=== PATIENT | male | born 1980 | race Caucasian/White ===

== ENCOUNTER 2016-08-04 16:22 | Inpatient (IN) | payer OTHER ==
[2016-08-04 16:53] VITALS: BMI 30.8
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
[2016-08-04] MEDS ORDERED: MAGNESIUM CITRATE 300 ML BOTTLE PO PRN (18:28)
[2016-08-04] MEDS ORDERED: MENTHOL/PHENOL 1 EACH UD MM PRN (18:28)
[2016-08-04] MEDS ORDERED: LOPERAMIDE HCL 2 MG CAPSULE PO PRN (18:28)
[2016-08-04] MEDS ORDERED: ACETAMINOPHEN 325 MG TABLET (FP) PO PRN (18:28)
[2016-08-04] MEDS ORDERED: chlordiazePOXIDE HCL 25 MG CAPSULE PO ONE (18:28)
[2016-08-04] MEDS ORDERED: hydrOXYzine PAMOATE 50 MG CAPSULE (FP) PO PRN (18:28)
[2016-08-04] MEDS ORDERED: IBUPROFEN 400 MG TABLET (FP) PO PRN (18:28)
[2016-08-04] MEDS ORDERED: MAG HYDROX/AL HYDROX/SIMETH 30 ML UNIT-DOSE CUP PO PRN (18:28)
[2016-08-04] MEDS ORDERED: guaiFENesin/D-METHORPHAN HB 10 ML UNIT-DOSE CUPS PO PRN (18:28)
[2016-08-04] MEDS ORDERED: P-EPHED 60MG/TRIPROLIDI 2.5MG TABLET PO PRN (18:28)
[2016-08-04] MEDS ORDERED: chlordiazePOXIDE HCL 25 MG CAPSULE PO PRN (18:28)
[2016-08-04] MEDS ORDERED: NICOTINE POLACRILEX 2 MG GUM BC PRN (18:28)
[2016-08-04] MEDS ORDERED: MAGNESIUM HYDROX 2400MG/30ML ORAL SUSPENSION 30 ML CUP PO PRN (18:28)
[2016-08-04] MEDS ORDERED: chlordiazePOXIDE HCL 25 MG CAPSULE ONE (20:47)
[2016-08-04] MEDS: NICOTINE 21 MG/24 HOURS TOPICAL PATCH TD SCH (20:49)
[2016-08-04] MEDS: chlordiazePOXIDE HCL 25 MG CAPSULE PO SCH (22:39)
[2016-08-04] MEDS: THIAMINE HCL 100 MG TABLET (FP) PO SCH (22:39)
[2016-08-04] MEDS: diphenhydrAMINE HCL 50 MG CAPSULE PO PRN (22:39)
[2016-08-05] MEDS: chlordiazePOXIDE HCL 25 MG CAPSULE PO SCH ×4 (05:39→22:28)
[2016-08-05 10:28] LABS: URINE APPEARANCE CLEAR; URINE BILIRUBIN NEGATIVE (NEGATIVE); URINE BLOOD NEGATIVE (NEGATIVE); URINE COLOR YELLOW; URINE GLUCOSE (UA) NEGATIVE (NEGATIVE); URINE KETONE NEGATIVE (NEGATIVE); URINE LEUK ESTERASE NEGATIVE (NEGATIVE); URINE NITRITE NEGATIVE (NEGATIVE); URINE PROTEIN NEGATIVE (NEGATIVE); URINE UROBILINOGEN NEGATIVE E.U./dl (0.2-1.0)
[2016-08-05 10:31] LABS: MCH 30.2 pg (25.7-33.7); MCHC 33.7 g/dl (32.0-35.9); MEAN CELL VOLUME 89.5 fl (80-96); MEAN PLT VOLUME 8.7 fl (7.5-11.1); PLATELET COUNT 199 K/MM3 (134-434); WHITE BLOOD COUNT 5.1 K/mm3 (4.0-10.0)
[2016-08-05] MEDS: METHADONE HCL 40 MG DISPERSABLE TABLET PO SCH (10:33)
[2016-08-05] MEDS: NICOTINE 21 MG/24 HOURS TOPICAL PATCH TD SCH (10:33)
[2016-08-05] MEDS: PRENATAL VITAMINS W/ FOLIC ACID TABLET (FP) PO SCH (10:33)
[2016-08-05 10:51] LABS: ALBUMIN 3.3 g/dl (3.4-5.0); ALK PHOS 130 U/L (45-117); ANION GAP 10 (8-16); BILIRUBIN,TOTAL 0.7 mg/dL (0.2-1.0); CALCIUM 8.6 mg/dL (8.5-10.1); CO2 29 mmol/L (21-32); CREATININE 0.8 mg/dL (0.7-1.3); GLUCOSE,RANDOM 86 mg/dL (74-106); SGOT/AST 27 U/L (15-37); SGPT/ALT 39 U/L (12-78); TOT PROT 6.5 g/dl (6.4-8.2)
--- NOTE | 2016-08-05 16:38 | PN ---
S CIWA - CIWA Score Nausea/Vomitin Muscle Tremors: 4-Moderate,w/Arms Extend Anxiety: 4-Mod. Anxious/Guarded Agitation: 4-Moderately Restless Paroxysmal Sweats: No Perspiration Orientation: 0-Oriented Tacttile Disturbances: 1-Very Mild Itch/Numbness Auditory Disturbances: 0-None Visual Disturbances: 0-None Headache: 2-Mild CIWA-Ar Total Score: 18 BHS Progress Note (SOAP) Subjective: Anxious, nausea, sweating, tremor, interrupted sleep Objective: 08/05/16 16:37 Last Vital Signs Temp Pulse Resp BP Pulse Ox 96.0 F L 76 18 125/85 08/05/16 14:13 08/05/16 14:13 08/05/16 14:13 08/05/16 14:13 Laboratory Tests 08/05/16 08/05/16 08/05/16 07:45 07:45 07:45 WBC 5.1 RBC 4.84 Hgb 14.6 Hct 43.3 MCV 89.5 MCHC 33.7 RDW 13.0 Plt Count 199 MPV 8.7 Sodium 138 Potassium 4.0 Chloride 99 Carbon Dioxide 29 Anion Gap 10 BUN 14 D Creatinine 0.8 Creat Clearance w eGFR > 60 Random Glucose 86 Calcium 8.6 Total Bilirubin 0.7 D AST 27 D ALT 39 D Alkaline Phosphatase 130 H D Total Protein 6.5 Albumin 3.3 L Urine Color Urine Appearance Urine pH Ur Specific [place] Urine Protein Urine Glucose (UA) Urine Ketones Urine Blood Urine Nitrite Urine Bilirubin Urine Urobilinogen Ur Leukocyte Esterase RPR Titer Nonreactive 08/05/16 07:45 WBC RBC Hgb Hct MCV MCHC RDW Plt Count MPV Sodium Potassium Chloride Carbon Dioxide Anion Gap BUN Creatinine Creat Clearance w eGFR Random Glucose Calcium Total Bilirubin AST ALT Alkaline Phosphatase Total Protein Albumin Urine Color Yellow Urine Appearance Clear Urine pH 6.0 Ur Specific [place] 1.023 Urine Protein Negative Urine Glucose (UA) Negative Urine Ketones Negative Urine Blood Negative Urine Nitrite Negative Urine Bilirubin Negative Urine Urobilinogen Negative Ur Leukocyte Esterase Negative RPR Titer Labs noted Assessment: 08/05/16 16:38 Withdrawal symptoms Plan: Continue detox
[2016-08-05] MEDS: THIAMINE HCL 100 MG TABLET (FP) PO SCH (22:28)
[2016-08-05] MEDS: diphenhydrAMINE HCL 50 MG CAPSULE PO PRN (22:29)
[2016-08-06] MEDS: METHADONE HCL 40 MG DISPERSABLE TABLET PO SCH (05:53)
[2016-08-06] MEDS: chlordiazePOXIDE HCL 25 MG CAPSULE PO SCH ×3 (05:53→17:49)
[2016-08-06] MEDS: NICOTINE 21 MG/24 HOURS TOPICAL PATCH TD SCH (10:38)
[2016-08-06] MEDS: PRENATAL VITAMINS W/ FOLIC ACID TABLET (FP) PO SCH (10:38)
--- NOTE | 2016-08-06 12:36 | PN ---
S CIWA - CIWA Score Nausea/Vomitin-No Nausea/No Vomiting Muscle Tremors: 3 Anxiety: 4-Mod. Anxious/Guarded Agitation: 4-Moderately Restless Paroxysmal Sweats: 3 Orientation: 0-Oriented Tacttile Disturbances: 0-None Auditory Disturbances: 0-None Visual Disturbances: 0-None Headache: 0-None Present CIWA-Ar Total Score: 14 BHS Progress Note (SOAP) Subjective: Anxiety,tremors,sweating,interrupted sleep,restless Objective: 08/06/16 12:34 Vital Signs - 8 hr 08/06/16 08/06/16 06:34 09:55 Temperature 97.0 F L 97 F L Pulse Rate 77 90 Respiratory 16 20 Rate Blood Pressure 106/79 123/84 Laboratory Tests 08/05/16 08/05/16 08/05/16 07:45 07:45 07:45 WBC 5.1 RBC 4.84 Hgb 14.6 Hct 43.3 MCV 89.5 MCHC 33.7 RDW 13.0 Plt Count 199 MPV 8.7 Sodium 138 Potassium 4.0 Chloride 99 Carbon Dioxide 29 Anion Gap 10 BUN 14 D Creatinine 0.8 Creat Clearance w eGFR > 60 Random Glucose 86 Calcium 8.6 Total Bilirubin 0.7 D AST 27 D ALT 39 D Alkaline Phosphatase 130 H D Total Protein 6.5 Albumin 3.3 L Urine Color Urine Appearance Urine pH Ur Specific [place] Urine Protein Urine Glucose (UA) Urine Ketones Urine Blood Urine Nitrite Urine Bilirubin Urine Urobilinogen Ur Leukocyte Esterase RPR Titer Nonreactive 08/05/16 07:45 WBC RBC Hgb Hct MCV MCHC RDW Plt Count MPV Sodium Potassium Chloride Carbon Dioxide Anion Gap BUN Creatinine Creat Clearance w eGFR Random Glucose Calcium Total Bilirubin AST ALT Alkaline Phosphatase Total Protein Albumin Urine Color Yellow Urine Appearance Clear Urine pH 6.0 Ur Specific [place] 1.023 Urine Protein Negative Urine Glucose (UA) Negative Urine Ketones Negative Urine Blood Negative Urine Nitrite Negative Urine Bilirubin Negative Urine Urobilinogen Negative Ur Leukocyte Esterase Negative RPR Titer labs noted Assessment: 08/06/16 12:35 Withdrawal sx. Plan: Continue detox
[2016-08-06] MEDS: diphenhydrAMINE HCL 50 MG CAPSULE PO PRN (22:34)
[2016-08-06] MEDS: chlordiazePOXIDE 5 MG CAPSULE PO SCH (22:34)
[2016-08-06] MEDS: THIAMINE HCL 100 MG TABLET (FP) PO SCH (22:34)
[2016-08-07] MEDS: METHADONE HCL 40 MG DISPERSABLE TABLET PO SCH (05:30)
[2016-08-07] MEDS: chlordiazePOXIDE 5 MG CAPSULE PO SCH ×3 (05:30→17:15)
[2016-08-07] MEDS: PRENATAL VITAMINS W/ FOLIC ACID TABLET (FP) PO SCH (10:45)
[2016-08-07] MEDS: NICOTINE 21 MG/24 HOURS TOPICAL PATCH TD SCH (10:45)
--- NOTE | 2016-08-07 10:49 | PN ---
BHS Progress Note (SOAP) Subjective: ANXIETY,SWEATS, INTERMITTENT SLEEP. Objective: 08/07/16 10:48 Vital Signs Temperature 96.6 F L 08/07/16 10:10 Pulse Rate 101 H 08/07/16 10:10 Respiratory Rate 20 08/07/16 10:10 Blood Pressure 127/85 08/07/16 10:10 O2 Sat by Pulse Oximetry (%) Laboratory Last Values WBC 5.1 K/mm3 (4.0-10.0) 08/05/16 07:45 RBC 4.84 M/mm3 (4.00-5.60) 08/05/16 07:45 Hgb 14.6 GM/dL (11.7-16.9) 08/05/16 07:45 Hct 43.3 % (35.4-49) 08/05/16 07:45 MCV 89.5 fl (80-96) 08/05/16 07:45 MCHC 33.7 g/dl (32.0-35.9) 08/05/16 07:45 RDW 13.0 % (11.9-15.9) 08/05/16 07:45 Plt Count 199 K/MM3 (134-434) 08/05/16 07:45 MPV 8.7 fl (7.5-11.1) 08/05/16 07:45 Sodium 138 mmol/L (136-145) 08/05/16 07:45 Potassium 4.0 mmol/L (3.5-5.1) 08/05/16 07:45 Chloride 99 mmol/L (98-107) 08/05/16 07:45 Carbon Dioxide 29 mmol/L (21-32) 08/05/16 07:45 Anion Gap 10 (8-16) 08/05/16 07:45 BUN 14 mg/dL (7-18) D 08/05/16 07:45 Creatinine 0.8 mg/dL (0.7-1.3) 08/05/16 07:45 Creat Clearance w eGFR > 60 (>60) 08/05/16 07:45 Random Glucose 86 mg/dL (74-106) 08/05/16 07:45 Calcium 8.6 mg/dL (8.5-10.1) 08/05/16 07:45 Total Bilirubin 0.7 mg/dL (0.2-1.0) D 08/05/16 07:45 AST 27 U/L (15-37) D 08/05/16 07:45 ALT 39 U/L (12-78) D 08/05/16 07:45 Alkaline Phosphatase 130 U/L (45-117) H D 08/05/16 07:45 Total Protein 6.5 g/dl (6.4-8.2) 08/05/16 07:45 Albumin 3.3 g/dl (3.4-5.0) L 08/05/16 07:45 Urine Color Yellow 08/05/16 07:45 Urine Appearance Clear 08/05/16 07:45 Urine pH 6.0 (5.0-8.0) 08/05/16 07:45 Ur Specific [place] 1.023 (1.001-1.035) 08/05/16 07:45 Urine Protein Negative (NEGATIVE) 08/05/16 07:45 Urine Glucose (UA) Negative (NEGATIVE) 08/05/16 07:45 Urine Ketones Negative (NEGATIVE) 08/05/16 07:45 Urine Blood Negative (NEGATIVE) 08/05/16 07:45 Urine Nitrite Negative (NEGATIVE) 08/05/16 07:45 Urine Bilirubin Negative (NEGATIVE) 08/05/16 07:45 Urine Urobilinogen Negative E.U./dl (0.2-1.0) 08/05/16 07:45 Ur Leukocyte Esterase Negative (NEGATIVE) 08/05/16 07:45 RPR Titer Nonreactive (NONREACTIVE) 08/05/16 07:45 Assessment: WITHDRAWAL SX Plan: CONTINUE DETOX
[2016-08-07] MEDS: THIAMINE HCL 100 MG TABLET (FP) PO SCH (22:37)
[2016-08-07] MEDS: diphenhydrAMINE HCL 50 MG CAPSULE PO PRN (22:37)
[2016-08-07] MEDS: chlordiazePOXIDE HCL 10 MG CAPSULE PO SCH (22:37)
--- NOTE | 2016-08-07 23:09 | EKG ---
Test Reason : Blood Pressure : / mmHG Vent. Rate : 077 BPM Atrial Rate : 077 BPM P-R Int : 132 ms QRS Dur : 088 ms QT Int : 420 ms P-R-T Axes : 041 024 021 degrees QTc Int : 475 ms NORMAL SINUS RHYTHM POSSIBLE LEFT ATRIAL ENLARGEMENT BORDERLINE ECG NO PREVIOUS ECGS AVAILABLE Confirmed by CAM DELA CRUZ, LINDA ([id number]) on 08/07/2016 11:08:29 PM Referred By: Confirmed By:LINDA LEVY MD
[2016-08-08] MEDS: chlordiazePOXIDE HCL 10 MG CAPSULE PO SCH (05:27)
[2016-08-08] MEDS: METHADONE HCL 40 MG DISPERSABLE TABLET PO SCH (05:30)
[2016-08-08 06:29] VITALS: BP 108/77; PULSE 74; TEMP 97.1
--- NOTE | 2016-08-08 10:24 | DS ---
[facility] Detox Discharge Summary Admission Date: 08/04/16 Discharge Date: 08/08/16 - History Present History: Alcohol Dependence, MMTP Additional Comments: DETOX COMPLETED,ALERT O X 3. NAD. Pertinent Past History: DEFORMITY OF RIGHT INDEX FINGER - Physical Exam Results Vital Signs: Vital Signs Temperature 97.1 F L 08/08/16 06:27 Pulse Rate 74 08/08/16 06:27 Respiratory Rate 16 08/08/16 06:27 Blood Pressure 108/77 08/08/16 06:27 O2 Sat by Pulse Oximetry (%) Pertinent Admission Physical Exam Findings: WITHDRAWAL SX - Treatment Hospital Course: Detox Protocol Followed, Detoxed Safely, Responded well, Discharged Condition Good, Rehab Referral Accepted Patient has Accepted a Rehab Referral to: [facility] O[facility] - Medication Discharge Medications: Ambulatory Orders NK [No Known Home Medication] 01/11/16 - Diagnosis (1) 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
== END 2016-08-08 09:13 | disposition home or self-care (01) | DRG 773 ==
LOC: YASAS 16:22 → Y3N 17:52
PROVIDERS: ADMIT Internal Medicine; ATTEND Internal Medicine
PROC: HZ2ZZZZ Detoxification Services for Substance Abuse Treatment (ICD-10-PCS; principal; 2016-08-04)
DX: F10.230 Alcohol dependence with withdrawal, uncomplicated (principal); F11.20 Opioid dependence, uncomplicated; F17.210 Nicotine dependence, cigarettes, uncomplicated; R76.11 Nonspecific reaction to tuberculin skin test without active tuberculosis; M20.011 Mallet finger of right finger(s)
CPT/HCPCS: 36415; 71020-TC; 80053; 81003; 85027; 86593; 93005; 93010

== ENCOUNTER 2016-08-13 08:47 | Inpatient (IN) | payer OTHER ==
[2016-08-13 09:41] VITALS: BMI 32.3
[2016-08-13] MEDS ORDERED: P-EPHED 60MG/TRIPROLIDI 2.5MG TABLET PO PRN (11:39)
[2016-08-13] MEDS ORDERED: MAGNESIUM HYDROX 2400MG/30ML ORAL SUSPENSION 30 ML CUP PO PRN (11:39)
[2016-08-13] MEDS ORDERED: guaiFENesin/D-METHORPHAN HB 10 ML UNIT-DOSE CUPS PO PRN (11:39)
[2016-08-13] MEDS ORDERED: MENTHOL/PHENOL 1 EACH UD MM PRN (11:39)
[2016-08-13] MEDS ORDERED: MAGNESIUM CITRATE 300 ML BOTTLE PO PRN (11:39)
[2016-08-13] MEDS ORDERED: NICOTINE POLACRILEX 2 MG GUM BUC PRN (11:39)
[2016-08-13] MEDS ORDERED: ACETAMINOPHEN 325 MG TABLET (FP) PO PRN (11:39)
[2016-08-13] MEDS ORDERED: LOPERAMIDE HCL 2 MG CAPSULE PO PRN (11:39)
[2016-08-13] MEDS ORDERED: MAG HYDROX/AL HYDROX/SIMETH 30 ML UNIT-DOSE CUP PO PRN (11:39)
--- NOTE | 2016-08-13 11:41 | HP ---
RADHA DELA CRUZ Rehab Assess/Revision - Admission History Admitted to Rehab from: [facility] Date of Admission to Rehab: 08/13/16 - Vital signs Vital Signs: Vital Signs Period Temp Pulse Resp BP Sys/Phipps Pulse Ox Last 24 Hr 97.6 F 80 20 157/90 - Findings Detox History & Physical reviewed: Yes Concur with findings: Yes Comments/Additional Findings: last detox 08/04/16 to 08/08/16 [facility]. for rehab as protocol
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
[2016-08-13] MEDS: NICOTINE 21 MG/24 HOURS TOPICAL PATCH TD SCH (15:38)
[2016-08-13] MEDS: THIAMINE HCL 100 MG TABLET (FP) PO SCH (21:49)
[2016-08-13] MEDS: traZODone HCL 100 MG TABLET (FP) PO SCH (21:49)
[2016-08-14] MEDS: METHADONE HCL 40 MG DISPERSABLE TABLET PO SCH (07:18)
[2016-08-14] MEDS: NICOTINE 21 MG/24 HOURS TOPICAL PATCH TD SCH (09:36)
[2016-08-14] MEDS: PRENATAL VITAMINS W/ FOLIC ACID TABLET (FP) PO SCH (09:36)
[2016-08-14] MEDS: THIAMINE HCL 100 MG TABLET (FP) PO SCH (21:35)
[2016-08-14] MEDS: traZODone HCL 100 MG TABLET (FP) PO SCH (21:35)
[2016-08-14] MEDS: diphenhydrAMINE HCL 50 MG CAPSULE PO PRN (21:35)
[2016-08-15] MEDS: METHADONE HCL 40 MG DISPERSABLE TABLET PO SCH (05:56)
[2016-08-15] MEDS: PRENATAL VITAMINS W/ FOLIC ACID TABLET (FP) PO SCH (09:38)
[2016-08-15] MEDS: NICOTINE 21 MG/24 HOURS TOPICAL PATCH TD SCH (09:38)
[2016-08-15] MEDS: traZODone HCL 100 MG TABLET (FP) PO SCH (21:40)
[2016-08-15] MEDS: THIAMINE HCL 100 MG TABLET (FP) PO SCH (21:40)
[2016-08-15] MEDS: diphenhydrAMINE HCL 50 MG CAPSULE PO PRN (21:41)
[2016-08-16] MEDS: METHADONE HCL 40 MG DISPERSABLE TABLET PO SCH (06:26)
[2016-08-16] MEDS: PRENATAL VITAMINS W/ FOLIC ACID TABLET (FP) PO SCH (09:39)
[2016-08-16] MEDS: NICOTINE 21 MG/24 HOURS TOPICAL PATCH TD SCH (09:39)
[2016-08-16] MEDS: THIAMINE HCL 100 MG TABLET (FP) PO SCH (21:39)
[2016-08-16] MEDS: traZODone HCL 100 MG TABLET (FP) PO SCH (21:39)
[2016-08-16] MEDS: diphenhydrAMINE HCL 50 MG CAPSULE PO PRN (21:39)
[2016-08-17] MEDS: METHADONE HCL 40 MG DISPERSABLE TABLET PO SCH (06:45)
[2016-08-17] MEDS: NICOTINE 21 MG/24 HOURS TOPICAL PATCH TD SCH (09:38)
[2016-08-17] MEDS: PRENATAL VITAMINS W/ FOLIC ACID TABLET (FP) PO SCH (09:38)
[2016-08-17] MEDS: diphenhydrAMINE HCL 50 MG CAPSULE PO PRN (21:18)
[2016-08-17] MEDS: THIAMINE HCL 100 MG TABLET (FP) PO SCH (21:18)
[2016-08-17] MEDS: traZODone HCL 100 MG TABLET (FP) PO SCH (21:18)
[2016-08-18] MEDS: METHADONE HCL 40 MG DISPERSABLE TABLET PO SCH (06:10)
[2016-08-18] MEDS: IBUPROFEN 400 MG TABLET (FP) PO PRN (09:28)
[2016-08-18] MEDS: PRENATAL VITAMINS W/ FOLIC ACID TABLET (FP) PO SCH (09:28)
[2016-08-18] MEDS: NICOTINE 21 MG/24 HOURS TOPICAL PATCH TD SCH (09:30)
[2016-08-18] MEDS: diphenhydrAMINE HCL 50 MG CAPSULE PO PRN (21:12)
[2016-08-18] MEDS: THIAMINE HCL 100 MG TABLET (FP) PO SCH (21:12)
[2016-08-18] MEDS: traZODone HCL 100 MG TABLET (FP) PO SCH (21:12)
[2016-08-19] MEDS: METHADONE HCL 40 MG DISPERSABLE TABLET PO SCH (06:05)
[2016-08-19] MEDS: PRENATAL VITAMINS W/ FOLIC ACID TABLET (FP) PO SCH (09:50)
[2016-08-19] MEDS: NICOTINE 21 MG/24 HOURS TOPICAL PATCH TD SCH (09:50)
[2016-08-19] MEDS: THIAMINE HCL 100 MG TABLET (FP) PO SCH (21:16)
[2016-08-19] MEDS: traZODone HCL 100 MG TABLET (FP) PO SCH (21:16)
[2016-08-19] MEDS: diphenhydrAMINE HCL 50 MG CAPSULE PO PRN (21:16)
[2016-08-20] MEDS ORDERED: METHADONE HCL 10 MG TABLET PO SCH (06:00)
[2016-08-20] MEDS: METHADONE HCL 40 MG DISPERSABLE TABLET PO SCH (06:25)
[2016-08-20] MEDS: NICOTINE 21 MG/24 HOURS TOPICAL PATCH TD SCH (09:42)
[2016-08-20] MEDS: PRENATAL VITAMINS W/ FOLIC ACID TABLET (FP) PO SCH (09:42)
[2016-08-20] MEDS: THIAMINE HCL 100 MG TABLET (FP) PO SCH (21:35)
[2016-08-20] MEDS: traZODone HCL 100 MG TABLET (FP) PO SCH (21:35)
[2016-08-20] MEDS: diphenhydrAMINE HCL 50 MG CAPSULE PO PRN (21:36)
[2016-08-21] MEDS: METHADONE HCL 40 MG DISPERSABLE TABLET PO SCH (06:21)
[2016-08-21] MEDS: NICOTINE 21 MG/24 HOURS TOPICAL PATCH TD SCH (09:29)
[2016-08-21] MEDS: PRENATAL VITAMINS W/ FOLIC ACID TABLET (FP) PO SCH (09:30)
[2016-08-21] MEDS: THIAMINE HCL 100 MG TABLET (FP) PO SCH (21:47)
[2016-08-21] MEDS: diphenhydrAMINE HCL 50 MG CAPSULE PO PRN (21:47)
[2016-08-21] MEDS: traZODone HCL 100 MG TABLET (FP) PO SCH (21:48)
[2016-08-22] MEDS: METHADONE HCL 40 MG DISPERSABLE TABLET PO SCH (05:53)
[2016-08-22] MEDS: PRENATAL VITAMINS W/ FOLIC ACID TABLET (FP) PO SCH (09:47)
[2016-08-22] MEDS: NICOTINE 21 MG/24 HOURS TOPICAL PATCH TD SCH (09:48)
[2016-08-22] MEDS: diphenhydrAMINE HCL 50 MG CAPSULE PO PRN (21:42)
[2016-08-22] MEDS: THIAMINE HCL 100 MG TABLET (FP) PO SCH (21:42)
[2016-08-22] MEDS: traZODone HCL 100 MG TABLET (FP) PO SCH (21:42)
[2016-08-23] MEDS: METHADONE HCL 40 MG DISPERSABLE TABLET PO SCH (06:03)
[2016-08-23] MEDS: NICOTINE 21 MG/24 HOURS TOPICAL PATCH TD SCH (09:39)
[2016-08-23] MEDS: PRENATAL VITAMINS W/ FOLIC ACID TABLET (FP) PO SCH (09:39)
[2016-08-23] MEDS: traZODone HCL 100 MG TABLET (FP) PO SCH (21:41)
[2016-08-23] MEDS: THIAMINE HCL 100 MG TABLET (FP) PO SCH (21:41)
[2016-08-23] MEDS: diphenhydrAMINE HCL 50 MG CAPSULE PO PRN (21:42)
[2016-08-24] MEDS: METHADONE HCL 40 MG DISPERSABLE TABLET PO SCH (06:11)
[2016-08-24] MEDS: NICOTINE 21 MG/24 HOURS TOPICAL PATCH TD SCH (09:40)
[2016-08-24] MEDS: PRENATAL VITAMINS W/ FOLIC ACID TABLET (FP) PO SCH (09:40)
[2016-08-24] MEDS: IBUPROFEN 400 MG TABLET (FP) PO PRN (09:42)
[2016-08-24] MEDS: traZODone HCL 100 MG TABLET (FP) PO SCH (21:22)
[2016-08-24] MEDS: diphenhydrAMINE HCL 50 MG CAPSULE PO PRN (21:22)
[2016-08-24] MEDS: THIAMINE HCL 100 MG TABLET (FP) PO SCH (21:22)
[2016-08-25] MEDS: METHADONE HCL 40 MG DISPERSABLE TABLET PO SCH (06:13)
[2016-08-25] MEDS: NICOTINE 21 MG/24 HOURS TOPICAL PATCH TD SCH (09:48)
[2016-08-25] MEDS: PRENATAL VITAMINS W/ FOLIC ACID TABLET (FP) PO SCH (09:48)
[2016-08-25] MEDS: diphenhydrAMINE HCL 50 MG CAPSULE PO PRN (21:24)
[2016-08-25] MEDS: THIAMINE HCL 100 MG TABLET (FP) PO SCH (21:24)
[2016-08-25] MEDS: traZODone HCL 100 MG TABLET (FP) PO SCH (21:24)
[2016-08-26] MEDS: METHADONE HCL 40 MG DISPERSABLE TABLET PO SCH (06:16)
[2016-08-26] MEDS: PRENATAL VITAMINS W/ FOLIC ACID TABLET (FP) PO SCH (09:23)
[2016-08-26] MEDS: NICOTINE 21 MG/24 HOURS TOPICAL PATCH TD SCH (09:23)
[2016-08-26] MEDS: THIAMINE HCL 100 MG TABLET (FP) PO SCH (21:32)
[2016-08-26] MEDS: diphenhydrAMINE HCL 50 MG CAPSULE PO PRN (21:32)
[2016-08-26] MEDS: traZODone HCL 100 MG TABLET (FP) PO SCH (21:32)
[2016-08-27] MEDS: METHADONE HCL 40 MG DISPERSABLE TABLET PO SCH (06:00)
[2016-08-27] MEDS: PRENATAL VITAMINS W/ FOLIC ACID TABLET (FP) PO SCH (09:40)
[2016-08-27] MEDS: NICOTINE 21 MG/24 HOURS TOPICAL PATCH TD SCH (09:41)
[2016-08-27] MEDS: traZODone HCL 100 MG TABLET (FP) PO SCH (21:29)
[2016-08-27] MEDS: diphenhydrAMINE HCL 50 MG CAPSULE PO PRN (21:29)
[2016-08-27] MEDS: THIAMINE HCL 100 MG TABLET (FP) PO SCH (21:29)
[2016-08-28] MEDS: METHADONE HCL 40 MG DISPERSABLE TABLET PO SCH (05:58)
[2016-08-28] MEDS: IBUPROFEN 400 MG TABLET (FP) PO PRN (06:49)
[2016-08-28] MEDS: PRENATAL VITAMINS W/ FOLIC ACID TABLET (FP) PO SCH (09:35)
[2016-08-28] MEDS: NICOTINE 21 MG/24 HOURS TOPICAL PATCH TD SCH (09:35)
[2016-08-28] MEDS: hydrOXYzine PAMOATE 50 MG CAPSULE (FP) PO PRN (21:31)
[2016-08-28] MEDS: THIAMINE HCL 100 MG TABLET (FP) PO SCH (21:31)
[2016-08-28] MEDS: traZODone HCL 100 MG TABLET (FP) PO SCH (21:31)
[2016-08-29] MEDS: METHADONE HCL 40 MG DISPERSABLE TABLET PO SCH (05:55)
[2016-08-29] MEDS: PRENATAL VITAMINS W/ FOLIC ACID TABLET (FP) PO SCH (09:39)
[2016-08-29] MEDS: NICOTINE 21 MG/24 HOURS TOPICAL PATCH TD SCH (09:39)
--- NOTE | 2016-08-29 11:43 | PN ---
Psychiatric Progress Note Vital Signs: Vital Signs Period Temp Pulse Resp BP Sys/Phipps Pulse Ox Last 24 Hr 97.8 F 94 18 107/76 Date of Session: 08/29/16 Chief Complaint:: Insomnia HPI: Patient addressing Alcohol and Cocaine Dependence comorbid with Nicotine Dependence and Substance-induced sleep Disorder ROS: Asthma, PPD+ Current Medications: Active Medications Generic Name Dose Route Start Last Admin Trade Name Freq PRN Reason Stop Dose Admin Acetaminophen 650 mg 08/13/16 11:39 Tylenol - PO Q4H PRN FEVER OR PAIN Al Hydroxide/Mg Hydroxide 30 ml 08/13/16 11:39 Mylanta Oral Suspension - PO Q6H PRN DYSPEPSIA Diphenhydramine HCl 50 mg 08/13/16 11:39 08/27/16 21:29 Benadryl - PO 50 mg HSMR1 PRN Administration FOR ITCHING Eucalyptus/Menthol/Phenol/Sorbitol 1 each 08/13/16 11:39 Cepastat Lozenge - MM Q4H PRN SORE THROAT Guaifenesin 10 ml 08/13/16 11:39 Robitussin Dm - PO Q6H PRN COUGH Hydroxyzine Pamoate 50 mg 08/13/16 11:39 08/28/16 21:31 Vistaril - PO 50 mg Q4H PRN Administration AGITATION Ibuprofen 400 mg 08/13/16 11:39 08/28/16 06:49 Motrin - PO 400 mg Q6H PRN Administration PAIN Loperamide HCl 4 mg 08/13/16 11:39 Imodium - PO Q6H PRN DIARRHEA Magnesium Hydroxide 30 ml 08/13/16 11:39 Milk Of Magnesia - PO DAILY PRN CONSTIPATION Methadone HCl 120 mg 08/27/16 06:00 08/29/16 05:55 Dolophine - PO 120 mg DAILY@0600 MIESHA Administration Nicotine 21 mg 08/13/16 11:45 08/29/16 09:39 Nicoderm Patch - TD 21 mg DAILY MIESHA Administration Nicotine Polacrilex 2 mg 08/13/16 11:39 Nicorette Gum - BUC Q2H PRN NICOTINE REPLACEMENT RX Multivit/Folic Acid/Iron 1 tab 08/14/16 10:00 08/29/16 09:39 Vitamins (Sjr) - PO 1 tab DAILY MIESHA Administration Pseudoephedrine/Triprolidine 1 combo 08/13/16 11:39 Actifed - PO TID PRN NASAL CONGESTION Thiamine HCl 100 mg 08/13/16 22:00 08/28/16 21:31 Vitamin B1 - PO 100 mg HS MIESHA Administration Trazodone HCl 100 mg 08/13/16 22:00 08/28/16 21:31 Desyrel - PO 100 mg HS MIESHA Administration Provider note:: Reports experiencing difficulty to sleep. 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 He requests to be order a more effective sleep med. Hypnotic properties of Trazadone discussed with patient and he agreed to try it. He was made aware of possible adverse-effects including priapism Mental Status Exam - Mental Status Exam Alert and Oriented to: Time, Place, Person Cognitive Function: Fair Patient Appearance: Well Groomed Mood: Hopeful, Euthymic Affect: Appropriate Patient Behavior: Cooperative Speech Pattern: Clear Voice Loudness: Normal Thought Process: Intact Thought Disorder: Not Present Hallucinations: Denies Suicidal Ideation: Denies Homicidal Ideation: Denies Insight/Judgement: Fair Sleep: Poorly Appetite: Good Muscle strength/Tone: Normal Gait/Station: Normal Psychiatric Treatment Plan - Problem List (1) Alcohol dependence Current Visit: No (2) Opioid dependence on agonist therapy Current Visit: Yes (3) Nicotine dependence Current Visit: No Qualifiers: Nicotine product type: cigarettes Substance use status: in withdrawal Qualified Code(s): F17.213 - Nicotine dependence, cigarettes, with withdrawal (4) Substance-induced sleep disorder Current Visit: No (5) Positive PPD Current Visit: No (6) Mallet deformity of right index finger Current Visit: No Initial treatment plan: 1) Start Trazadone 100 mg po HS for insomnia. 2) Monitor progress
[2016-08-29] MEDS: diphenhydrAMINE HCL 50 MG CAPSULE PO PRN (21:28)
[2016-08-29] MEDS: THIAMINE HCL 100 MG TABLET (FP) PO SCH (21:28)
[2016-08-29] MEDS: traZODone HCL 100 MG TABLET (FP) PO SCH (21:28)
[2016-08-30] MEDS: METHADONE HCL 40 MG DISPERSABLE TABLET PO SCH (06:02)
[2016-08-30] MEDS: PRENATAL VITAMINS W/ FOLIC ACID TABLET (FP) PO SCH (09:55)
[2016-08-30] MEDS: NICOTINE 21 MG/24 HOURS TOPICAL PATCH TD SCH (09:56)
[2016-08-30] MEDS: diphenhydrAMINE HCL 50 MG CAPSULE PO PRN (21:34)
[2016-08-30] MEDS: traZODone HCL 100 MG TABLET (FP) PO SCH (21:34)
[2016-08-30] MEDS: THIAMINE HCL 100 MG TABLET (FP) PO SCH (21:34)
[2016-08-31] MEDS: METHADONE HCL 40 MG DISPERSABLE TABLET PO SCH (05:56)
[2016-08-31] MEDS: PRENATAL VITAMINS W/ FOLIC ACID TABLET (FP) PO SCH (09:43)
[2016-08-31] MEDS: NICOTINE 21 MG/24 HOURS TOPICAL PATCH TD SCH (09:43)
[2016-08-31] MEDS: diphenhydrAMINE HCL 50 MG CAPSULE PO PRN (21:08)
[2016-08-31] MEDS: traZODone HCL 100 MG TABLET (FP) PO SCH (21:08)
[2016-08-31] MEDS: THIAMINE HCL 100 MG TABLET (FP) PO SCH (21:08)
[2016-09-01] MEDS: METHADONE HCL 40 MG DISPERSABLE TABLET PO SCH (06:10)
[2016-09-01] MEDS: NICOTINE 21 MG/24 HOURS TOPICAL PATCH TD SCH (09:44)
[2016-09-01] MEDS: PRENATAL VITAMINS W/ FOLIC ACID TABLET (FP) PO SCH (09:45)
[2016-09-01] MEDS: hydrOXYzine PAMOATE 50 MG CAPSULE (FP) PO PRN (21:20)
[2016-09-01] MEDS: traZODone HCL 100 MG TABLET (FP) PO SCH (21:20)
[2016-09-01] MEDS: THIAMINE HCL 100 MG TABLET (FP) PO SCH (21:20)
[2016-09-02] MEDS: METHADONE HCL 40 MG DISPERSABLE TABLET PO SCH (06:07)
[2016-09-02] MEDS: NICOTINE 21 MG/24 HOURS TOPICAL PATCH TD SCH (09:39)
[2016-09-02] MEDS: PRENATAL VITAMINS W/ FOLIC ACID TABLET (FP) PO SCH (09:39)
[2016-09-02] MEDS: IBUPROFEN 400 MG TABLET (FP) PO PRN (10:46)
[2016-09-02] MEDS: traZODone HCL 100 MG TABLET (FP) PO SCH (21:30)
[2016-09-02] MEDS: diphenhydrAMINE HCL 50 MG CAPSULE PO PRN (21:30)
[2016-09-02] MEDS: THIAMINE HCL 100 MG TABLET (FP) PO SCH (21:30)
[2016-09-03] MEDS: METHADONE HCL 40 MG DISPERSABLE TABLET PO SCH (05:58)
--- NOTE | 2016-09-03 06:35 | PN ---
Psychiatric Progress Note Vital Signs: Vital Signs Period Temp Pulse Resp BP Sys/Phipps Pulse Ox Last 24 Hr 98.1 F 76 16-18 106/69 Date of Session: 09/03/16 Chief Complaint:: Discharge Note HPI: Patient addressing Alcohol and Cocaine Dependence comorbid with Nicotine Dependence and Substance-Induced Sleep disorder ROS: Asthma, PPD+ were medically managed Current Medications: Active Medications Generic Name Dose Route Start Last Admin Trade Name Freq PRN Reason Stop Dose Admin Acetaminophen 650 mg 08/13/16 11:39 Tylenol - PO Q4H PRN FEVER OR PAIN Al Hydroxide/Mg Hydroxide 30 ml 08/13/16 11:39 Mylanta Oral Suspension - PO Q6H PRN DYSPEPSIA Diphenhydramine HCl 50 mg 08/13/16 11:39 09/02/16 21:30 Benadryl - PO 50 mg HSMR1 PRN Administration FOR ITCHING Eucalyptus/Menthol/Phenol/Sorbitol 1 each 08/13/16 11:39 Cepastat Lozenge - MM Q4H PRN SORE THROAT Guaifenesin 10 ml 08/13/16 11:39 Robitussin Dm - PO Q6H PRN COUGH Hydroxyzine Pamoate 50 mg 08/13/16 11:39 09/01/16 21:20 Vistaril - PO 50 mg Q4H PRN Administration AGITATION Ibuprofen 400 mg 08/13/16 11:39 09/02/16 10:46 Motrin - PO 400 mg Q6H PRN Administration PAIN Loperamide HCl 4 mg 08/13/16 11:39 Imodium - PO Q6H PRN DIARRHEA Magnesium Hydroxide 30 ml 08/13/16 11:39 Milk Of Magnesia - PO DAILY PRN CONSTIPATION Methadone HCl 120 mg 09/02/16 06:00 09/03/16 05:58 Dolophine - PO 120 mg DAILY@0600 MIESHA Administration Nicotine 21 mg 08/13/16 11:45 09/02/16 09:39 Nicoderm Patch - TD 21 mg DAILY MIESHA Administration Nicotine Polacrilex 2 mg 08/13/16 11:39 Nicorette Gum - BUC Q2H PRN NICOTINE REPLACEMENT RX Multivit/Folic Acid/Iron 1 tab 08/14/16 10:00 09/02/16 09:39 Vitamins (Sjr) - PO 1 tab DAILY MIESHA Administration Pseudoephedrine/Triprolidine 1 combo 08/13/16 11:39 Actifed - PO TID PRN NASAL CONGESTION Thiamine HCl 100 mg 08/13/16 22:00 09/02/16 21:30 Vitamin B1 - PO 100 mg HS MIESHA Administration Trazodone HCl 100 mg 08/13/16 22:00 09/02/16 21:30 Desyrel - PO 100 mg HS MIESHA Administration Current Side Effect: No Lab tests ordered: Yes Lab tests reviewed: Yes Provider note:: Patient has completed this program today. He has met his treatment goals and will continue to address his issues in outpatient treatment @ [facility]. He verbalized understanding of the negative consequences of his addiction and from his participation in this program, he has learned the importance of establising a sober support network in order to maintain abstinence. He responded well to Trazadone 100 mg po HS for insomnia. Script for 30 days supply of that medication is electronically transmitted to [facility]. He is stable for discharge today Total face to face time:: 35 Mental Status Exam - Mental Status Exam Alert and Oriented to: Time, Place, Person Cognitive Function: Fair Patient Appearance: Well Groomed Mood: Hopeful, Euthymic Affect: Appropriate Patient Behavior: Cooperative Speech Pattern: Clear Voice Loudness: Normal Thought Process: Intact Thought Disorder: Not Present Hallucinations: Denies Suicidal Ideation: Denies Homicidal Ideation: Denies Insight/Judgement: Fair Sleep: Fair Appetite: Good Muscle strength/Tone: Normal Gait/Station: Normal Psychiatric Treatment Plan - Problem List (1) Alcohol dependence Current Visit: No (2) Opioid dependence on agonist therapy Current Visit: Yes (3) Nicotine dependence Current Visit: No Qualifiers: Nicotine product type: cigarettes Substance use status: in withdrawal Qualified Code(s): F17.213 - Nicotine dependence, cigarettes, with withdrawal (4) Substance-induced sleep disorder Current Visit: No (5) Positive PPD Current Visit: No (6) Mallet deformity of right index finger Current Visit: No Initial treatment plan: Patient is discharged today and referred to [facility]/ [facility] for outpatient treatment
[2016-09-03 06:41] VITALS: BP 112/67; PULSE 98; TEMP 97.5
[2016-09-03] MEDS: PRENATAL VITAMINS W/ FOLIC ACID TABLET (FP) PO SCH (09:22)
== END 2016-09-03 09:30 | disposition home or self-care (01) | DRG 772 ==
LOC: YASAS 08:47 → Y3W 11:42
PROVIDERS: ADMIT Psychiatry & Neurology Psychiatry; ATTEND Psychiatry & Neurology Psychiatry
PROC: HZ42ZZZ Group Counseling for Substance Abuse Treatment, Cognitive-Behavioral (ICD-10-PCS; principal; 2016-09-03)
DX: F11.20 Opioid dependence, uncomplicated (principal); F10.230 Alcohol dependence with withdrawal, uncomplicated; F17.213 Nicotine dependence, cigarettes, with withdrawal; F19.282 Other psychoactive substance dependence with psychoactive substance-induced sleep disorder; R76.11 Nonspecific reaction to tuberculin skin test without active tuberculosis; M20.011 Mallet finger of right finger(s)

== ENCOUNTER 2016-11-29 01:49 | Inpatient (IN) | payer OTHER ==
[2016-11-29] MEDS ORDERED: chlordiazePOXIDE HCL 25 MG CAPSULE PO ONE (03:06)
[2016-11-29] MEDS ORDERED: MAG HYDROX/AL HYDROX/SIMETH 30 ML UNIT-DOSE CUP PO PRN (03:06)
[2016-11-29] MEDS ORDERED: guaiFENesin/D-METHORPHAN HB 10 ML UNIT-DOSE CUPS PO PRN (03:06)
[2016-11-29] MEDS ORDERED: P-EPHED 60MG/TRIPROLIDI 2.5MG TABLET PO PRN (03:06)
[2016-11-29] MEDS ORDERED: IBUPROFEN 400 MG TABLET (FP) PO PRN (03:06)
[2016-11-29] MEDS ORDERED: ACETAMINOPHEN 325 MG TABLET (FP) PO PRN (03:06)
[2016-11-29] MEDS ORDERED: NICOTINE POLACRILEX 2 MG GUM BUC PRN (03:06)
[2016-11-29] MEDS ORDERED: MAGNESIUM HYDROX 2400MG/30ML ORAL SUSPENSION 30 ML CUP PO PRN (03:06)
[2016-11-29] MEDS ORDERED: MAGNESIUM CITRATE 300 ML BOTTLE PO PRN (03:06)
[2016-11-29] MEDS ORDERED: LOPERAMIDE HCL 2 MG CAPSULE PO PRN (03:06)
[2016-11-29] MEDS ORDERED: chlordiazePOXIDE HCL 25 MG CAPSULE PO PRN (03:06)
[2016-11-29] MEDS ORDERED: MENTHOL/PHENOL 1 EACH UD MM PRN (03:06)
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
[2016-11-29 03:30] VITALS: BMI 31.8
[2016-11-29] MEDS: chlordiazePOXIDE HCL 25 MG CAPSULE PO SCH ×4 (05:55→22:13)
[2016-11-29] MEDS ORDERED: METHADONE HCL 40 MG DISPERSABLE TABLET PO ONE (08:03)
--- NOTE | 2016-11-29 09:02 | CONSULT ---
[facility] Psychiatric Consult - Data Date of interview: 11/29/16 Admission source: [facility] Identifying data: This is 36 years old male with no psychiatric hospitalization history inbtoxicated with: Alcohol, Methadone, Cannabis, mNicotiner, history oif Cocaine abuse as well Substance Abuse History: Urine Drug Screen Results: MTD-Methadone. - Smoking Cessation. Smoking history: Current every day smoker. Have you smoked in the past 12 months: Yes. Aproximately how many cigarettes per day: 20. Cigars Per Day: 0. Hx Chewing Tobacco Use: No. Initiated information on smoking cessation : Yes. 'Breaking Loose' booklet given: 11/29/16. - Substance & Tx. History. Hx Alcohol Use: Yes. Hx Substance Use: No. Substance Use Type: Alcohol. Hx Substance Use Treatment: Yes ([facility] detox 08/04/16 to 08/08/16,rehab 08/08/16 to 09/03/[address] [facility]). - Substances Abused. Alcohol. Route: Oral. Frequency: Daily. Amount used: 3 pints of vodka/10 of 40 ozs of beer. Age of first use: 17. Date of Last Use: 11/29/16 Medical History: Syncope history, Seizure history, Cellulitis history, MMTP 120mg pewr day Psychiatric History: Patient reports to carry Bipolr Disorder history, reports taking currently Trazodone 1090mg po qhs, denies psychiatric hospitalization history. Reports unclear psychiatric admission on more then 10 years ago Physical/Sexual Abuse/Trauma History: Denies Additional Comment: Urine Drug Screen Results: MTD-Methadone. Trazodone 1090mg po qhs Mental Status Exam - Mental Status Exam Alert and Oriented to: Person Cognitive Function: Fair Patient Appearance: Unkempt Mood: Apprehensive Affect: Mood Congruent Patient Behavior: Cooperative Speech Pattern: Appropriate Voice Loudness: Normal Thought Process: Goal Oriented Thought Disorder: Being Controlled Hallucinations: Denies Suicidal Ideation: Denies Homicidal Ideation: Denies Insight/Judgement: Fair Sleep: Difficulty falling asleep Appetite: Weight gain Muscle strength/Tone: Normal Gait/Station: Normal Additional Comments: Trazodone 1090mg po qhs Psychiatric Findings - Problem List ([place] 1, 2,3) (1) Alcohol related seizure Current Visit: Yes Status: Acute (2) Alcohol dependence Current Visit: No Status: Acute (3) Alcohol dependence with uncomplicated withdrawal Current Visit: No Status: Acute (4) Bipolar 1 disorder, depressed Current Visit: No Status: Acute (5) Methadone use disorder, mild, on maintenance therapy Current Visit: No Status: Acute (6) Nicotine dependence Current Visit: No Status: Acute Qualifiers: Nicotine product type: cigarettes Substance use status: in withdrawal Qualified Code(s): F17.213 - Nicotine dependence, cigarettes, with withdrawal (7) Opiate dependence Current Visit: No Status: Acute Qualifiers: Substance use status: uncomplicated Qualified Code(s): F11.20 - Opioid dependence, uncomplicated (8) Opioid dependence on agonist therapy Current Visit: No Status: Acute (9) Cannabis dependence Current Visit: No Status: Chronic (10) Cocaine dependence Current Visit: No Status: Chronic (11) anxiety and depression Current Visit: No Status: Chronic (12) Drug-induced mood disorder Current Visit: No Status: Suspected - Initial Treatment Plan Initial Treatment Plan: Trazodone 1090mg po qhs
[2016-11-29] MEDS: PRENATAL VITAMINS W/ FOLIC ACID TABLET (FP) PO SCH (10:06)
[2016-11-29] MEDS: NICOTINE 21 MG/24 HOURS TOPICAL PATCH TD SCH (10:07)
--- NOTE | 2016-11-29 11:59 | EKG ---
Test Reason : Blood Pressure : / mmHG Vent. Rate : 081 BPM Atrial Rate : 081 BPM P-R Int : 136 ms QRS Dur : 088 ms QT Int : 410 ms P-R-T Axes : 030 032 019 degrees QTc Int : 476 ms NORMAL SINUS RHYTHM NORMAL ECG WHEN COMPARED WITH ECG OF 04-AUG-2016 18:29, NO SIGNIFICANT CHANGE WAS FOUND Confirmed by CASSANDRA BECKER MD ([id number]) on 11/29/2016 11:59:11 AM Referred By: Confirmed By:CASSANDRA BECKER MD
--- NOTE | 2016-11-29 13:38 | PN ---
[facility] CIWA - CIWA Score Nausea/Vomitin-No Nausea/No Vomiting Muscle Tremors: 4-Moderate,w/Arms Extend Anxiety: 4-Mod. Anxious/Guarded Agitation: 3 Paroxysmal Sweats: 3 Orientation: 0-Oriented Tacttile Disturbances: 1-Very Mild Itch/Numbness Auditory Disturbances: 0-None Visual Disturbances: 0-None Headache: 0-None Present CIWA-Ar Total Score: 15 BHS Progress Note (SOAP) Subjective: Anxiety,tremors,sweating,interrupted sleep,restless Objective: 11/29/16 13:37 Vital Signs - 8 hr 11/29/16 11/29/16 11/29/16 06:05 07:28 10:27 Temperature 97.2 F L 97.1 F L 96.9 F L Pulse Rate 98 H 76 84 Respiratory 20 18 18 Rate Blood Pressure 150/95 123/67 132/87 Assessment: 11/29/16 13:37 Withdrawal sx. Plan: Continue detox
[2016-11-29] MEDS: THIAMINE HCL 100 MG TABLET (FP) PO SCH (22:13)
[2016-11-29] MEDS: traZODone HCL 100 MG TABLET (FP) PO SCH (22:13)
[2016-11-29] MEDS: diphenhydrAMINE HCL 50 MG CAPSULE PO PRN (22:13)
[2016-11-30] MEDS: chlordiazePOXIDE HCL 25 MG CAPSULE PO SCH ×4 (05:39→22:04)
[2016-11-30] MEDS: METHADONE HCL 40 MG DISPERSABLE TABLET PO SCH (05:40)
[2016-11-30] MEDS: PRENATAL VITAMINS W/ FOLIC ACID TABLET (FP) PO SCH (10:07)
[2016-11-30] MEDS: NICOTINE 21 MG/24 HOURS TOPICAL PATCH TD SCH (10:07)
[2016-11-30 10:14] LABS: MCH 30.3 pg (25.7-33.7); MCHC 33.4 g/dl (32.0-35.9); MEAN CELL VOLUME 90.7 fl (80-96); MEAN PLT VOLUME 8.9 fl (7.5-11.1); PLATELET COUNT 270 K/MM3 (134-434); RDW 12.7 % (11.9-15.9); WHITE BLOOD COUNT 6.1 K/mm3 (4.0-10.0)
[2016-11-30 10:23] LABS: CALCIUM 8.8 mg/dL (8.5-10.1)
[2016-11-30 10:29] LABS: ALBUMIN 3.2 g/dl (3.4-5.0); ALK PHOS 159 U/L (45-117); ANION GAP 9 (8-16); BILIRUBIN,TOTAL 0.6 mg/dL (0.2-1.0); CO2 28 mmol/L (21-32); CREATININE 0.8 mg/dL (0.7-1.3); GLUCOSE,RANDOM 110 mg/dL (74-106); SGOT/AST 33 U/L (15-37); SGPT/ALT 47 U/L (12-78); TOT PROT 6.7 g/dl (6.4-8.2)
--- NOTE | 2016-11-30 11:47 | PN ---
[facility] CIWA - CIWA Score Nausea/Vomitin-No Nausea/No Vomiting Muscle Tremors: 4-Moderate,w/Arms Extend Anxiety: 3 Agitation: 3 Paroxysmal Sweats: 2 Orientation: 4Disoriented Place/Person Tacttile Disturbances: 3-Moderate Itch/Numb/Burn Auditory Disturbances: 0-None Visual Disturbances: 0-None Headache: 0-None Present CIWA-Ar Total Score: 19 BHS Progress Note (SOAP) Subjective: Fatigue, Interrupted sleep, Tremors. Objective: PT. A & O X 2 (DISORIENTED ABOUT DAY / DATE). PT. OBSERVED AMBULATING ON UNIT. NO ACUTE DISTRESS. 11/30/16 11:45 Vital Signs Temperature 96.6 F L 11/30/16 09:26 Pulse Rate 79 11/30/16 09:26 Respiratory Rate 18 11/30/16 09:26 Blood Pressure 112/82 11/30/16 09:26 O2 Sat by Pulse Oximetry (%) Laboratory Tests 11/30/16 11/30/16 07:00 07:00 WBC 6.1 RBC 4.63 Hgb 14.0 Hct 42.0 MCV 90.7 MCH 30.3 MCHC 33.4 RDW 12.7 Plt Count 270 D MPV 8.9 Sodium 137 Potassium 4.2 Chloride 100 Carbon Dioxide 28 Anion Gap 9 BUN 12 Creatinine 0.8 Creat Clearance w eGFR > 60 Random Glucose 110 H D Calcium 8.8 Total Bilirubin 0.6 AST 33 D ALT 47 D Alkaline Phosphatase 159 H D Total Protein 6.7 Albumin 3.2 L LABS NOTED. RPR RESULT PENDING. ADMISSION UA NOT YET COLLECTED. 11/30/16 11:47 Assessment: 11/30/16 11:46 WITHDRAWAL SYMPTOMS. Plan: CONTINUE DETOX.
[2016-11-30 16:14] LABS: URINE APPEARANCE CLEAR; URINE BILIRUBIN NEGATIVE (NEGATIVE); URINE BLOOD NEGATIVE (NEGATIVE); URINE COLOR YELLOW; URINE GLUCOSE (UA) NEGATIVE (NEGATIVE); URINE KETONE NEGATIVE (NEGATIVE); URINE LEUK ESTERASE TRACE (NEGATIVE); URINE NITRITE NEGATIVE (NEGATIVE); URINE PROTEIN NEGATIVE (NEGATIVE); URINE UROBILINOGEN NEGATIVE mg/dL (0.2-1.0)
[2016-11-30 16:22] LABS: URINE MUCUS RARE; URINE RBC <1 /hpf (0-3); URINE WBC <1 /hpf (3-5)
[2016-11-30] MEDS: THIAMINE HCL 100 MG TABLET (FP) PO SCH (22:04)
[2016-11-30] MEDS: diphenhydrAMINE HCL 50 MG CAPSULE PO PRN (22:04)
[2016-11-30] MEDS: traZODone HCL 100 MG TABLET (FP) PO SCH (22:04)
[2016-12-01] MEDS: chlordiazePOXIDE 5 MG CAPSULE PO SCH ×4 (05:16→22:17)
[2016-12-01] MEDS: METHADONE HCL 40 MG DISPERSABLE TABLET PO SCH (05:19)
[2016-12-01] MEDS: PRENATAL VITAMINS W/ FOLIC ACID TABLET (FP) PO SCH (10:10)
[2016-12-01] MEDS: NICOTINE 21 MG/24 HOURS TOPICAL PATCH TD SCH (10:10)
--- NOTE | 2016-12-01 16:35 | PN ---
BHS Progress Note (SOAP) Subjective: Interrupted sleep. Objective: PT. A & O X 2 (DISORIENTED ABOUT DAY /DATE). PT. OBSERVED AMBULATING ON UNIT. NO ACUTE DISTRESS. 12/01/16 16:33 Vital Signs Temperature 97 F L 12/01/16 13:54 Pulse Rate 91 H 12/01/16 13:54 Respiratory Rate 20 12/01/16 13:54 Blood Pressure 114/81 12/01/16 13:54 O2 Sat by Pulse Oximetry (%) Laboratory Tests 11/30/16 11/30/16 11/30/16 07:00 07:00 07:00 WBC 6.1 RBC 4.63 Hgb 14.0 Hct 42.0 MCV 90.7 MCH 30.3 MCHC 33.4 RDW 12.7 Plt Count 270 D MPV 8.9 Sodium 137 Potassium 4.2 Chloride 100 Carbon Dioxide 28 Anion Gap 9 BUN 12 Creatinine 0.8 Creat Clearance w eGFR > 60 Random Glucose 110 H D Calcium 8.8 Total Bilirubin 0.6 AST 33 D ALT 47 D Alkaline Phosphatase 159 H D Total Protein 6.7 Albumin 3.2 L Urine Color Urine Appearance Urine pH Ur Specific [place] Urine Protein Urine Glucose (UA) Urine Ketones Urine Blood Urine Nitrite Urine Bilirubin Urine Urobilinogen Ur Leukocyte Esterase Urine RBC Urine WBC Ur Epithelial Cells Urine Mucus RPR Titer Nonreactive 11/30/16 13:40 WBC RBC Hgb Hct MCV MCH MCHC RDW Plt Count MPV Sodium Potassium Chloride Carbon Dioxide Anion Gap BUN Creatinine Creat Clearance w eGFR Random Glucose Calcium Total Bilirubin AST ALT Alkaline Phosphatase Total Protein Albumin Urine Color Yellow Urine Appearance Clear Urine pH 5.0 Ur Specific [place] 1.020 Urine Protein Negative Urine Glucose (UA) Negative Urine Ketones Negative Urine Blood Negative Urine Nitrite Negative Urine Bilirubin Negative Urine Urobilinogen Negative Ur Leukocyte Esterase Trace Urine RBC <1 Urine WBC <1 Ur Epithelial Cells Rare Urine Mucus Rare RPR Titer LABS NOTED. Assessment: 12/01/16 16:34 WITHDRAWAL SYMPTOMS. Plan: CONTINUE DETOX.
[2016-12-01] MEDS: traZODone HCL 100 MG TABLET (FP) PO SCH (22:15)
[2016-12-01] MEDS: THIAMINE HCL 100 MG TABLET (FP) PO SCH (22:15)
[2016-12-01] MEDS: diphenhydrAMINE HCL 50 MG CAPSULE PO PRN (22:17)
[2016-12-02] MEDS: chlordiazePOXIDE HCL 10 MG CAPSULE PO SCH ×4 (05:27→22:05)
[2016-12-02] MEDS: METHADONE HCL 40 MG DISPERSABLE TABLET PO SCH (05:27)
[2016-12-02] MEDS: NICOTINE 21 MG/24 HOURS TOPICAL PATCH TD SCH (10:01)
[2016-12-02] MEDS: PRENATAL VITAMINS W/ FOLIC ACID TABLET (FP) PO SCH (10:02)
--- NOTE | 2016-12-02 15:38 | PN ---
BHS Progress Note (SOAP) Subjective: Sweating, interrupted sleep, anxious Objective: 12/02/16 15:37 Last Vital Signs Temp Pulse Resp BP Pulse Ox 97.8 F 87 18 118/79 12/02/16 13:56 12/02/16 13:56 12/02/16 13:56 12/02/16 13:56 Laboratory Tests 11/30/16 11/30/16 11/30/16 07:00 07:00 07:00 WBC 6.1 RBC 4.63 Hgb 14.0 Hct 42.0 MCV 90.7 MCH 30.3 MCHC 33.4 RDW 12.7 Plt Count 270 D MPV 8.9 Sodium 137 Potassium 4.2 Chloride 100 Carbon Dioxide 28 Anion Gap 9 BUN 12 Creatinine 0.8 Creat Clearance w eGFR > 60 Random Glucose 110 H D Calcium 8.8 Total Bilirubin 0.6 AST 33 D ALT 47 D Alkaline Phosphatase 159 H D Total Protein 6.7 Albumin 3.2 L Urine Color Urine Appearance Urine pH Ur Specific [place] Urine Protein Urine Glucose (UA) Urine Ketones Urine Blood Urine Nitrite Urine Bilirubin Urine Urobilinogen Ur Leukocyte Esterase Urine RBC Urine WBC Ur Epithelial Cells Urine Mucus RPR Titer Nonreactive 11/30/16 13:40 WBC RBC Hgb Hct MCV MCH MCHC RDW Plt Count MPV Sodium Potassium Chloride Carbon Dioxide Anion Gap BUN Creatinine Creat Clearance w eGFR Random Glucose Calcium Total Bilirubin AST ALT Alkaline Phosphatase Total Protein Albumin Urine Color Yellow Urine Appearance Clear Urine pH 5.0 Ur Specific [place] 1.020 Urine Protein Negative Urine Glucose (UA) Negative Urine Ketones Negative Urine Blood Negative Urine Nitrite Negative Urine Bilirubin Negative Urine Urobilinogen Negative Ur Leukocyte Esterase Trace Urine RBC <1 Urine WBC <1 Ur Epithelial Cells Rare Urine Mucus Rare RPR Titer Labs noted Assessment: 12/02/16 15:38 Withdrawal symptoms Plan: Continue detox Encouraged to drink lots of water
[2016-12-02] MEDS: THIAMINE HCL 100 MG TABLET (FP) PO SCH (22:05)
[2016-12-02] MEDS: traZODone HCL 100 MG TABLET (FP) PO SCH (22:05)
[2016-12-02] MEDS: diphenhydrAMINE HCL 50 MG CAPSULE PO PRN (22:06)
[2016-12-03] MEDS: METHADONE HCL 40 MG DISPERSABLE TABLET PO SCH (05:38)
[2016-12-03 06:28] VITALS: TEMP 96.3
[2016-12-03 09:30] VITALS: BP 130/83; PULSE 90
[2016-12-03] MEDS: PRENATAL VITAMINS W/ FOLIC ACID TABLET (FP) PO SCH (10:49)
[2016-12-03] MEDS: NICOTINE 21 MG/24 HOURS TOPICAL PATCH TD SCH (10:49)
--- NOTE | 2016-12-03 12:46 | DS ---
[facility] Detox Discharge Summary Admission Date: 11/29/16 Discharge Date: 12/03/16 - History Present History: Alcohol Dependence, MMTP Pertinent Past History: Mood disorder - Physical Exam Results Vital Signs: Vital Signs Temperature 96.3 F L 12/03/16 09:29 Pulse Rate 90 12/03/16 09:29 Respiratory Rate 20 12/03/16 09:29 Blood Pressure 130/83 12/03/16 09:29 O2 Sat by Pulse Oximetry (%) Pertinent Admission Physical Exam Findings: Withdrawal sx. Laboratory Last Values WBC 6.1 K/mm3 (4.0-10.0) 11/30/16 07:00 RBC 4.63 M/mm3 (4.00-5.60) 11/30/16 07:00 Hgb 14.0 GM/dL (11.7-16.9) 11/30/16 07:00 Hct 42.0 % (35.4-49) 11/30/16 07:00 MCV 90.7 fl (80-96) 11/30/16 07:00 MCH 30.3 pg (25.7-33.7) 11/30/16 07:00 MCHC 33.4 g/dl (32.0-35.9) 11/30/16 07:00 RDW 12.7 % (11.9-15.9) 11/30/16 07:00 Plt Count 270 K/MM3 (134-434) D 11/30/16 07:00 MPV 8.9 fl (7.5-11.1) 11/30/16 07:00 Sodium 137 mmol/L (136-145) 11/30/16 07:00 Potassium 4.2 mmol/L (3.5-5.1) 11/30/16 07:00 Chloride 100 mmol/L (98-107) 11/30/16 07:00 Carbon Dioxide 28 mmol/L (21-32) 11/30/16 07:00 Anion Gap 9 (8-16) 11/30/16 07:00 BUN 12 mg/dL (7-18) 11/30/16 07:00 Creatinine 0.8 mg/dL (0.7-1.3) 11/30/16 07:00 Creat Clearance w eGFR > 60 (>60) 11/30/16 07:00 Random Glucose 110 mg/dL (74-106) H D 11/30/16 07:00 Calcium 8.8 mg/dL (8.5-10.1) 11/30/16 07:00 Total Bilirubin 0.6 mg/dL (0.2-1.0) 11/30/16 07:00 AST 33 U/L (15-37) D 11/30/16 07:00 ALT 47 U/L (12-78) D 11/30/16 07:00 Alkaline Phosphatase 159 U/L (45-117) H D 11/30/16 07:00 Total Protein 6.7 g/dl (6.4-8.2) 11/30/16 07:00 Albumin 3.2 g/dl (3.4-5.0) L 11/30/16 07:00 Urine Color Yellow 11/30/16 13:40 Urine Appearance Clear 11/30/16 13:40 Urine pH 5.0 (5.0-8.0) 11/30/16 13:40 Ur Specific [place] 1.020 (1.005-1.025) 11/30/16 13:40 Urine Protein Negative (NEGATIVE) 11/30/16 13:40 Urine Glucose (UA) Negative (NEGATIVE) 11/30/16 13:40 Urine Ketones Negative (NEGATIVE) 11/30/16 13:40 Urine Blood Negative (NEGATIVE) 11/30/16 13:40 Urine Nitrite Negative (NEGATIVE) 11/30/16 13:40 Urine Bilirubin Negative (NEGATIVE) 11/30/16 13:40 Urine Urobilinogen Negative mg/dL (0.2-1.0) 11/30/16 13:40 Ur Leukocyte Esterase Trace (NEGATIVE) 11/30/16 13:40 Urine RBC <1 /hpf (0-3) 11/30/16 13:40 Urine WBC <1 /hpf (3-5) 11/30/16 13:40 Ur Epithelial Cells Rare /hpf (FEW) 11/30/16 13:40 Urine Mucus Rare 11/30/16 13:40 RPR Titer Nonreactive (NONREACTIVE) 11/30/16 07:00 labs noted - Treatment Hospital Course: Detox Protocol Followed, Detoxed Safely, Responded well, Discharged Condition Good, Rehab Referral Accepted Patient has Accepted a Rehab Referral to: [facility] at [facility] - Medication Discharge Medications: Ambulatory Orders Trazodone HCl [Desyrel -] 100 mg PO HS #30 tablet 09/03/16 Trazodone HCl [Desyrel -] 100 mg PO HS #30 tablet 11/29/16 - Diagnosis (1) Alcohol dependence with uncomplicated withdrawal Status: Acute (2) Bipolar 1 disorder, depressed Status: Acute (3) Opioid dependence on agonist therapy Status: Acute (4) Cannabis dependence Status: Chronic (5) Cocaine dependence Status: Chronic Qualifiers: Substance use status: uncomplicated Qualified Code(s): F14.20 - Cocaine dependence, uncomplicated - AMA Did Patient Leave Against Medical Advice: No
== END 2016-12-03 10:53 | disposition home or self-care (01) | DRG 773 ==
LOC: YASAS 01:49 → Y3N 01:56
PROVIDERS: ADMIT Internal Medicine; ATTEND Internal Medicine
PROC: HZ2ZZZZ Detoxification Services for Substance Abuse Treatment (ICD-10-PCS; principal; 2016-11-29)
DX: F10.230 Alcohol dependence with withdrawal, uncomplicated (principal); F11.20 Opioid dependence, uncomplicated; F14.20 Cocaine dependence, uncomplicated; F12.20 Cannabis dependence, uncomplicated; F17.210 Nicotine dependence, cigarettes, uncomplicated; F31.9 Bipolar disorder, unspecified; F19.24 Other psychoactive substance dependence with psychoactive substance-induced mood disorder; F41.8 Other specified anxiety disorders; Z86.69 Personal history of other diseases of the nervous system and sense organs
CPT/HCPCS: 36415; 80053; 81003; 81015; 85027; 86593; 93005; 93010

== ENCOUNTER 2017-02-14 09:30 | Inpatient (IN) | payer OTHER ==
[2017-02-14 12:00] VITALS: BMI 33.5
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
[2017-02-14] MEDS ORDERED: MENTHOL/PHENOL 1 EACH UD MM PRN (15:28)
[2017-02-14] MEDS ORDERED: chlordiazePOXIDE HCL 25 MG CAPSULE PO PRN (15:28)
[2017-02-14] MEDS ORDERED: LOPERAMIDE HCL 2 MG CAPSULE PO PRN (15:28)
[2017-02-14] MEDS ORDERED: MAG HYDROX/AL HYDROX/SIMETH 30 ML UNIT-DOSE CUP PO PRN (15:28)
[2017-02-14] MEDS ORDERED: ACETAMINOPHEN 325 MG TABLET (FP) PO PRN (15:28)
[2017-02-14] MEDS ORDERED: chlordiazePOXIDE HCL 25 MG CAPSULE PO ONE (15:28)
[2017-02-14] MEDS ORDERED: guaiFENesin/D-METHORPHAN HB 10 ML UNIT-DOSE CUPS PO PRN (15:28)
[2017-02-14] MEDS ORDERED: MAGNESIUM CITRATE 300 ML BOTTLE PO PRN (15:28)
[2017-02-14] MEDS ORDERED: NICOTINE POLACRILEX 2 MG GUM BUC PRN (15:28)
[2017-02-14] MEDS ORDERED: IBUPROFEN 400 MG TABLET (FP) PO PRN (15:28)
[2017-02-14] MEDS ORDERED: hydrOXYzine PAMOATE 50 MG CAPSULE (FP) PO PRN (15:28)
[2017-02-14] MEDS ORDERED: MAGNESIUM HYDROX 2400MG/30ML ORAL SUSPENSION 30 ML CUP PO PRN (15:28)
[2017-02-14] MEDS ORDERED: P-EPHED 60MG/TRIPROLIDI 2.5MG TABLET PO PRN (15:28)
[2017-02-14] MEDS: chlordiazePOXIDE HCL 25 MG CAPSULE PO SCH ×2 (18:38→22:21)
[2017-02-14] MEDS: NICOTINE 21 MG/24 HOURS TOPICAL PATCH TD SCH (18:38)
[2017-02-14] MEDS: diphenhydrAMINE HCL 50 MG CAPSULE PO PRN (22:21)
[2017-02-14] MEDS: THIAMINE HCL 100 MG TABLET (FP) PO SCH (22:21)
[2017-02-15 01:53] LABS: URINE APPEARANCE SLCLOUDY; URINE BILIRUBIN NEGATIVE (NEGATIVE); URINE BLOOD NEGATIVE (NEGATIVE); URINE COLOR YELLOW; URINE GLUCOSE (UA) NEGATIVE (NEGATIVE); URINE KETONE NEGATIVE (NEGATIVE); URINE NITRITE NEGATIVE (NEGATIVE); URINE UROBILINOGEN NEGATIVE mg/dL (0.2-1.0)
[2017-02-15 01:55] LABS: URINE PROTEIN 1+ (NEGATIVE)
[2017-02-15 02:24] LABS: URINE MUCUS RARE; URINE RBC <1 /hpf (0-3); URINE WBC 1 /hpf (3-5)
[2017-02-15] MEDS: chlordiazePOXIDE HCL 25 MG CAPSULE PO SCH ×4 (05:42→22:30)
[2017-02-15] MEDS ORDERED: METHADONE HCL 40 MG DISPERSABLE TABLET PO ONE (09:11)
--- NOTE | 2017-02-15 09:28 | EKG ---
Test Reason : Blood Pressure : / mmHG Vent. Rate : 074 BPM Atrial Rate : 074 BPM P-R Int : 132 ms QRS Dur : 084 ms QT Int : 424 ms P-R-T Axes : 051 013 029 degrees QTc Int : 470 ms NORMAL SINUS RHYTHM POSSIBLE LEFT ATRIAL ENLARGEMENT POOR R WAVE PROGRESSION Confirmed by ZHANNA GRANT MD ([id number]) on 02/15/2017 9:27:47 AM Referred By: Kojo Sams Confirmed By:ZHANNA GRANT MD
[2017-02-15 09:33] LABS: URINE LEUK ESTERASE Negative (NEGATIVE)
[2017-02-15 09:43] LABS: MCH 30.7 pg (25.7-33.7); MCHC 33.6 g/dl (32.0-35.9); MEAN CELL VOLUME 91.6 fl (80-96); MEAN PLT VOLUME 9.2 fl (7.5-11.1); PLATELET COUNT 247 K/MM3 (134-434); RDW 12.9 % (11.9-15.9); WHITE BLOOD COUNT 7.9 K/mm3 (4.0-10.0)
[2017-02-15 10:03] LABS: ALK PHOS 176 U/L (45-117); ANION GAP 6 (8-16); BILIRUBIN,TOTAL 0.5 mg/dL (0.2-1.0); CALCIUM 8.2 mg/dL (8.5-10.1); CO2 29 mmol/L (21-32); CREATININE 0.9 mg/dL (0.7-1.3); GLUCOSE,RANDOM 95 mg/dL (74-106); SGOT/AST 137 U/L (15-37); SGPT/ALT 223 U/L (12-78); TOT PROT 8.1 g/dl (6.4-8.2)
[2017-02-15] MEDS: PRENATAL VITAMINS W/ FOLIC ACID TABLET (FP) PO SCH (10:06)
[2017-02-15] MEDS: NICOTINE 21 MG/24 HOURS TOPICAL PATCH TD SCH (10:07)
--- NOTE | 2017-02-15 14:57 | PN ---
[facility] CIWA - CIWA Score Nausea/Vomitin-Mild Nausea/No Vomiting Muscle Tremors: 4-Moderate,w/Arms Extend Anxiety: 4-Mod. Anxious/Guarded Agitation: 3 Paroxysmal Sweats: 2 Orientation: 0-Oriented Tacttile Disturbances: 0-None Auditory Disturbances: 0-None Visual Disturbances: 0-None Headache: 0-None Present CIWA-Ar Total Score: 14 S Progress Note (SOAP) Subjective: Interrupted sleep, agitation, anxiety, shakes, chills Objective: Vital Signs Temperature 97.3 F L 02/15/17 13:03 Pulse Rate 78 02/15/17 13:03 Respiratory Rate 19 02/15/17 13:03 Blood Pressure 143/94 02/15/17 13:03 O2 Sat by Pulse Oximetry (%) Laboratory Last Values WBC 7.9 K/mm3 (4.0-10.0) D 02/15/17 06:00 RBC 4.97 M/mm3 (4.00-5.60) 02/15/17 06:00 Hgb 15.3 GM/dL (11.7-16.9) 02/15/17 06:00 Hct 45.5 % (35.4-49) 02/15/17 06:00 MCV 91.6 fl (80-96) 02/15/17 06:00 MCH 30.7 pg (25.7-33.7) 02/15/17 06:00 MCHC 33.6 g/dl (32.0-35.9) 02/15/17 06:00 RDW 12.9 % (11.9-15.9) 02/15/17 06:00 Plt Count 247 K/MM3 (134-434) 02/15/17 06:00 MPV 9.2 fl (7.5-11.1) 02/15/17 06:00 Sodium 137 mmol/L (136-145) 02/15/17 06:00 Potassium 4.6 mmol/L (3.5-5.1) 02/15/17 06:00 Chloride 102 mmol/L (98-107) 02/15/17 06:00 Carbon Dioxide 29 mmol/L (21-32) 02/15/17 06:00 Anion Gap 6 (8-16) L 02/15/17 06:00 BUN 14 mg/dL (7-18) D 02/15/17 06:00 Creatinine 0.9 mg/dL (0.7-1.3) 02/15/17 06:00 Creat Clearance w eGFR > 60 (>60) 02/15/17 06:00 Random Glucose 95 mg/dL (74-106) 02/15/17 06:00 Calcium 8.2 mg/dL (8.5-10.1) L 02/15/17 06:00 Total Bilirubin 0.5 mg/dL (0.2-1.0) D 02/15/17 06:00 AST 137 U/L (15-37) H D 02/15/17 06:00 ALT 223 U/L (12-78) H 02/15/17 06:00 Alkaline Phosphatase 176 U/L (45-117) H 02/15/17 06:00 Total Protein 8.1 g/dl (6.4-8.2) 02/15/17 06:00 Albumin 4.0 g/dl (3.4-5.0) 02/15/17 06:00 Urine Color Yellow 02/14/17 21:42 Urine Appearance Slcloudy 02/14/17 21:42 Urine pH 5.0 (5.0-8.0) 02/14/17 21:42 Ur Specific [place] >= 1.030 (1.005-1.025) H 02/14/17 21:42 Urine Protein 1+ (NEGATIVE) H 02/14/17 21:42 Urine Glucose (UA) Negative (NEGATIVE) 02/14/17 21:42 Urine Ketones Negative (NEGATIVE) 02/14/17 21:42 Urine Blood Negative (NEGATIVE) 02/14/17 21:42 Urine Nitrite Negative (NEGATIVE) 02/14/17 21:42 Urine Bilirubin Negative (NEGATIVE) 02/14/17 21:42 Urine Urobilinogen Negative mg/dL (0.2-1.0) 02/14/17 21:42 Ur Leukocyte Esterase Negative (NEGATIVE) 02/14/17 21:42 Urine RBC <1 /hpf (0-3) 02/14/17 21:42 Urine WBC 1 /hpf (3-5) 02/14/17 21:42 Ur Epithelial Cells Rare /hpf (FEW) 02/14/17 21:42 Urine Mucus Rare 02/14/17 21:42 RPR Titer Nonreactive (NONREACTIVE) 02/15/17 06:00 Labs noted 02/15/17 15:02 Assessment: Withdrawal sx Plan: Continue detox
[2017-02-15] MEDS: diphenhydrAMINE HCL 50 MG CAPSULE PO PRN (22:30)
[2017-02-15] MEDS: THIAMINE HCL 100 MG TABLET (FP) PO SCH (22:30)
[2017-02-16] MEDS: chlordiazePOXIDE HCL 25 MG CAPSULE PO SCH ×2 (05:29→10:06)
[2017-02-16] MEDS: METHADONE HCL 40 MG DISPERSABLE TABLET PO SCH (05:29)
[2017-02-16] MEDS: PRENATAL VITAMINS W/ FOLIC ACID TABLET (FP) PO SCH (10:06)
[2017-02-16] MEDS: NICOTINE 21 MG/24 HOURS TOPICAL PATCH TD SCH (10:08)
--- NOTE | 2017-02-16 14:50 | PN ---
S CIWA - CIWA Score Nausea/Vomitin Muscle Tremors: 3 Anxiety: 3 Agitation: 3 Paroxysmal Sweats: 1-Minimal Palms Moist Orientation: 0-Oriented Tacttile Disturbances: 1-Very Mild Itch/Numbness Auditory Disturbances: 1-Very Mild Visual Disturbances: 0-None Headache: 2-Mild CIWA-Ar Total Score: 17 BHS Progress Note (SOAP) Subjective: alert,irritable,anxious,interrupted sleep,tremor Objective: 02/16/17 14:48 Vital Signs Temperature 97.8 F 02/16/17 13:44 Pulse Rate 93 H 02/16/17 13:44 Respiratory Rate 18 02/16/17 13:44 Blood Pressure 128/85 02/16/17 13:44 O2 Sat by Pulse Oximetry (%) Laboratory Last Values WBC 7.9 K/mm3 (4.0-10.0) D 02/15/17 06:00 RBC 4.97 M/mm3 (4.00-5.60) 02/15/17 06:00 Hgb 15.3 GM/dL (11.7-16.9) 02/15/17 06:00 Hct 45.5 % (35.4-49) 02/15/17 06:00 MCV 91.6 fl (80-96) 02/15/17 06:00 MCH 30.7 pg (25.7-33.7) 02/15/17 06:00 MCHC 33.6 g/dl (32.0-35.9) 02/15/17 06:00 RDW 12.9 % (11.9-15.9) 02/15/17 06:00 Plt Count 247 K/MM3 (134-434) 02/15/17 06:00 MPV 9.2 fl (7.5-11.1) 02/15/17 06:00 Sodium 137 mmol/L (136-145) 02/15/17 06:00 Potassium 4.6 mmol/L (3.5-5.1) 02/15/17 06:00 Chloride 102 mmol/L (98-107) 02/15/17 06:00 Carbon Dioxide 29 mmol/L (21-32) 02/15/17 06:00 Anion Gap 6 (8-16) L 02/15/17 06:00 BUN 14 mg/dL (7-18) D 02/15/17 06:00 Creatinine 0.9 mg/dL (0.7-1.3) 02/15/17 06:00 Creat Clearance w eGFR > 60 (>60) 02/15/17 06:00 Random Glucose 95 mg/dL (74-106) 02/15/17 06:00 Calcium 8.2 mg/dL (8.5-10.1) L 02/15/17 06:00 Total Bilirubin 0.5 mg/dL (0.2-1.0) D 02/15/17 06:00 AST 137 U/L (15-37) H D 02/15/17 06:00 ALT 223 U/L (12-78) H 02/15/17 06:00 Alkaline Phosphatase 176 U/L (45-117) H 02/15/17 06:00 Total Protein 8.1 g/dl (6.4-8.2) 02/15/17 06:00 Albumin 4.0 g/dl (3.4-5.0) 02/15/17 06:00 Urine Color Yellow 02/14/17 21:42 Urine Appearance Slcloudy 02/14/17 21:42 Urine pH 5.0 (5.0-8.0) 02/14/17 21:42 Ur Specific [place] >= 1.030 (1.005-1.025) H 02/14/17 21:42 Urine Protein 1+ (NEGATIVE) H 02/14/17 21:42 Urine Glucose (UA) Negative (NEGATIVE) 02/14/17 21:42 Urine Ketones Negative (NEGATIVE) 02/14/17 21:42 Urine Blood Negative (NEGATIVE) 02/14/17 21:42 Urine Nitrite Negative (NEGATIVE) 02/14/17 21:42 Urine Bilirubin Negative (NEGATIVE) 02/14/17 21:42 Urine Urobilinogen Negative mg/dL (0.2-1.0) 02/14/17 21:42 Ur Leukocyte Esterase Negative (NEGATIVE) 02/14/17 21:42 Urine RBC <1 /hpf (0-3) 02/14/17 21:42 Urine WBC 1 /hpf (3-5) 02/14/17 21:42 Ur Epithelial Cells Rare /hpf (FEW) 02/14/17 21:42 Urine Mucus Rare 02/14/17 21:42 RPR Titer Nonreactive (NONREACTIVE) 02/15/17 06:00 Assessment: 02/16/17 14:49 withdrawal symptom Plan: continue detox,repeat als,ast,inr in am,d/c tylenol
[2017-02-16] MEDS: chlordiazePOXIDE 5 MG CAPSULE PO SCH ×2 (18:29→22:08)
[2017-02-16] MEDS: THIAMINE HCL 100 MG TABLET (FP) PO SCH (22:08)
[2017-02-16] MEDS: diphenhydrAMINE HCL 50 MG CAPSULE PO PRN (22:08)
[2017-02-17] MEDS: chlordiazePOXIDE 5 MG CAPSULE PO SCH ×2 (05:13→10:17)
[2017-02-17] MEDS: METHADONE HCL 40 MG DISPERSABLE TABLET PO SCH (05:15)
[2017-02-17] MEDS: NICOTINE 21 MG/24 HOURS TOPICAL PATCH TD SCH (10:17)
[2017-02-17] MEDS: PRENATAL VITAMINS W/ FOLIC ACID TABLET (FP) PO SCH (10:17)
[2017-02-17 11:42] LABS: INR 0.9 (0.82-1.09); PROTHROMBIN TIME (PATIENT) 10.2 SEC (9.98-11.88)
[2017-02-17 11:52] LABS: SGOT/AST 81 U/L (15-37); SGPT/ALT 191 U/L (12-78)
--- NOTE | 2017-02-17 13:59 | PN ---
S Progress Note (SOAP) Subjective: ALERT,IRRITABLE,ANXIOUS,INTERRUPTED SLEEP Objective: 02/17/17 13:57 Vital Signs Temperature 97.5 F L 02/17/17 11:04 Pulse Rate 90 02/17/17 11:04 Respiratory Rate 18 02/17/17 11:04 Blood Pressure 145/103 02/17/17 11:04 O2 Sat by Pulse Oximetry (%) 02/17/17 13:58 Laboratory Last Values WBC 7.9 K/mm3 (4.0-10.0) D 02/15/17 06:00 RBC 4.97 M/mm3 (4.00-5.60) 02/15/17 06:00 Hgb 15.3 GM/dL (11.7-16.9) 02/15/17 06:00 Hct 45.5 % (35.4-49) 02/15/17 06:00 MCV 91.6 fl (80-96) 02/15/17 06:00 MCH 30.7 pg (25.7-33.7) 02/15/17 06:00 MCHC 33.6 g/dl (32.0-35.9) 02/15/17 06:00 RDW 12.9 % (11.9-15.9) 02/15/17 06:00 Plt Count 247 K/MM3 (134-434) 02/15/17 06:00 MPV 9.2 fl (7.5-11.1) 02/15/17 06:00 PT with INR 10.20 SEC (9.98-11.88) 02/17/17 07:45 INR 0.90 (0.82-1.09) 02/17/17 07:45 Sodium 137 mmol/L (136-145) 02/15/17 06:00 Potassium 4.6 mmol/L (3.5-5.1) 02/15/17 06:00 Chloride 102 mmol/L (98-107) 02/15/17 06:00 Carbon Dioxide 29 mmol/L (21-32) 02/15/17 06:00 Anion Gap 6 (8-16) L 02/15/17 06:00 BUN 14 mg/dL (7-18) D 02/15/17 06:00 Creatinine 0.9 mg/dL (0.7-1.3) 02/15/17 06:00 Creat Clearance w eGFR > 60 (>60) 02/15/17 06:00 Random Glucose 95 mg/dL (74-106) 02/15/17 06:00 Calcium 8.2 mg/dL (8.5-10.1) L 02/15/17 06:00 Total Bilirubin 0.5 mg/dL (0.2-1.0) D 02/15/17 06:00 AST 81 U/L (15-37) H D 02/17/17 07:45 ALT 191 U/L (12-78) H 02/17/17 07:45 Alkaline Phosphatase 176 U/L (45-117) H 02/15/17 06:00 Total Protein 8.1 g/dl (6.4-8.2) 02/15/17 06:00 Albumin 4.0 g/dl (3.4-5.0) 02/15/17 06:00 Urine Color Yellow 02/14/17 21:42 Urine Appearance Slcloudy 02/14/17 21:42 Urine pH 5.0 (5.0-8.0) 02/14/17 21:42 Ur Specific [place] >= 1.030 (1.005-1.025) H 02/14/17 21:42 Urine Protein 1+ (NEGATIVE) H 02/14/17 21:42 Urine Glucose (UA) Negative (NEGATIVE) 02/14/17 21:42 Urine Ketones Negative (NEGATIVE) 02/14/17 21:42 Urine Blood Negative (NEGATIVE) 02/14/17 21:42 Urine Nitrite Negative (NEGATIVE) 02/14/17 21:42 Urine Bilirubin Negative (NEGATIVE) 02/14/17 21:42 Urine Urobilinogen Negative mg/dL (0.2-1.0) 02/14/17 21:42 Ur Leukocyte Esterase Negative (NEGATIVE) 02/14/17 21:42 Urine RBC <1 /hpf (0-3) 02/14/17 21:42 Urine WBC 1 /hpf (3-5) 02/14/17 21:42 Ur Epithelial Cells Rare /hpf (FEW) 02/14/17 21:42 Urine Mucus Rare 02/14/17 21:42 RPR Titer Nonreactive (NONREACTIVE) 02/15/17 06:00 Assessment: 02/17/17 13:59 WITHDRAWAL SYMPTOM Plan: CONTINUE DETOX,DISCHARGE IN AM
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
[2017-02-17] MEDS ORDERED: ZOLPIDEM TARTRATE 10 MG TABLET (PARK CARE ONLY) PO PRN (14:24)
[2017-02-17] MEDS: chlordiazePOXIDE HCL 10 MG CAPSULE PO SCH ×2 (17:24→22:14)
[2017-02-17] MEDS: THIAMINE HCL 100 MG TABLET (FP) PO SCH (22:15)
[2017-02-17] MEDS: diphenhydrAMINE HCL 50 MG CAPSULE PO PRN (22:16)
[2017-02-18] MEDS: chlordiazePOXIDE HCL 10 MG CAPSULE PO SCH (05:53)
[2017-02-18] MEDS: METHADONE HCL 40 MG DISPERSABLE TABLET PO SCH (05:53)
[2017-02-18 06:05] VITALS: BP 121/90; PULSE 73; TEMP 96.3
--- NOTE | 2017-02-18 09:38 | DS ---
[facility] Detox Discharge Summary Admission Date: 02/14/17 Discharge Date: 02/18/17 - History Present History: Alcohol Dependence, Cannabis Dependence, Cocaine Dependence, MMTP - Physical Exam Results Vital Signs: Vital Signs Temperature 96.3 F L 02/18/17 06:04 Pulse Rate 73 02/18/17 06:04 Respiratory Rate 18 02/18/17 06:04 Blood Pressure 121/90 02/18/17 06:04 O2 Sat by Pulse Oximetry (%) - Treatment Hospital Course: Detox Protocol Followed, Detoxed Safely, Responded well, Discharged Condition Good, Rehab Referral Accepted - Medication Discharge Medications: Ambulatory Orders NK [No Known Home Medication] 02/14/17 - Diagnosis (1) Alcohol dependence with uncomplicated withdrawal Current Visit: Yes Status: Chronic (2) Nicotine dependence Current Visit: Yes Status: Chronic Qualifiers: Nicotine product type: cigarettes Substance use status: uncomplicated Qualified Code(s): F17.210 - Nicotine dependence, cigarettes, uncomplicated; F17.210 - Nicotine dependence, cigarettes, uncomplicated (3) Methadone maintenance therapy patient Current Visit: Yes Status: Chronic - AMA Did Patient Leave Against Medical Advice: No
== END 2017-02-18 10:00 | disposition home or self-care (01) | DRG 773 ==
LOC: YASAS 09:30 → Y6N 13:35
PROVIDERS: ADMIT Internal Medicine; ATTEND Internal Medicine
PROC: HZ2ZZZZ Detoxification Services for Substance Abuse Treatment (ICD-10-PCS; principal; 2017-02-14)
DX: F11.20 Opioid dependence, uncomplicated (principal); F10.230 Alcohol dependence with withdrawal, uncomplicated; F17.210 Nicotine dependence, cigarettes, uncomplicated; F32.9 Major depressive disorder, single episode, unspecified; F19.282 Other psychoactive substance dependence with psychoactive substance-induced sleep disorder; I10 Essential (primary) hypertension; R76.11 Nonspecific reaction to tuberculin skin test without active tuberculosis; M20.011 Mallet finger of right finger(s)
CPT/HCPCS: 36415; 80053; 81003; 81015; 84450; 84460; 85027; 85610; 86593; 93005; 93010

== ENCOUNTER 2017-02-26 08:35 | Inpatient (IN) | payer OTHER ==
[2017-02-26 13:15] VITALS: BMI 30.7
--- NOTE | 2017-02-26 13:20 | HP ---
[facility] Rehab Assess/Revision - Admission History Admitted to Rehab from: [facility] [place] - Vital signs Vital Signs: Vital Signs Period Temp Pulse Resp BP Sys/Phipps Pulse Ox Last 24 Hr 97 F 96 20 137/93 - Findings Detox History & Physical reviewed: Yes Concur with findings: Yes Inpatient Rehab Admission - Initial Determination Are CD services needed?: Yes Free of communicable disease: Yes - Rehab Admission Criteria Comorbidities: Yes Patient is meeting Inpatient Rehab admission criteria:: Yes
[2017-02-26] MEDS ORDERED: MAGNESIUM HYDROX 2400MG/30ML ORAL SUSPENSION 30 ML CUP PO PRN (13:21)
[2017-02-26] MEDS ORDERED: hydrOXYzine PAMOATE 50 MG CAPSULE (FP) PO PRN (13:21)
[2017-02-26] MEDS ORDERED: MAGNESIUM CITRATE 300 ML BOTTLE PO PRN (13:21)
[2017-02-26] MEDS ORDERED: ACETAMINOPHEN 325 MG TABLET (FP) PO PRN (13:21)
[2017-02-26] MEDS ORDERED: MENTHOL/PHENOL 1 EACH UD MM PRN (13:21)
[2017-02-26] MEDS ORDERED: IBUPROFEN 400 MG TABLET (FP) PO PRN (13:21)
[2017-02-26] MEDS ORDERED: P-EPHED 60MG/TRIPROLIDI 2.5MG TABLET PO PRN (13:21)
[2017-02-26] MEDS ORDERED: guaiFENesin/D-METHORPHAN HB 10 ML UNIT-DOSE CUPS PO PRN (13:21)
[2017-02-26] MEDS ORDERED: NICOTINE POLACRILEX 4 MG GUM BUC PRN (13:21)
[2017-02-26] MEDS ORDERED: LOPERAMIDE HCL 2 MG CAPSULE PO PRN (13:21)
[2017-02-26] MEDS ORDERED: diphenhydrAMINE HCL 50 MG CAPSULE PO PRN (13:21)
[2017-02-26] MEDS ORDERED: MAG HYDROX/AL HYDROX/SIMETH 30 ML UNIT-DOSE CUP PO PRN (13:21)
[2017-02-26 17:59] LABS: URINE APPEARANCE TURBID; URINE BILIRUBIN NEGATIVE (NEGATIVE); URINE BLOOD NEGATIVE (NEGATIVE); URINE COLOR YELLOW; URINE GLUCOSE (UA) NEGATIVE (NEGATIVE); URINE KETONE NEGATIVE (NEGATIVE); URINE NITRITE NEGATIVE (NEGATIVE); URINE UROBILINOGEN NEGATIVE mg/dL (0.2-1.0)
[2017-02-26] MEDS ORDERED: cloNIDine HCL 0.1 MG TABLET PO ONE (18:00)
[2017-02-26 18:04] LABS: URINE PROTEIN 1+ (NEGATIVE)
[2017-02-26 18:06] LABS: URINE RBC 9 /hpf (0-3); URINE WBC 21 /hpf (3-5)
[2017-02-26 18:07] LABS: URINE MUCUS RARE
[2017-02-26 20:31] LABS: URINE LEUK ESTERASE Negative (NEGATIVE)
[2017-02-26] MEDS: cloNIDine HCL 0.1 MG TABLET PO SCH (21:50)
[2017-02-26] MEDS: THIAMINE HCL 100 MG TABLET (FP) PO SCH (21:50)
[2017-02-27] MEDS: METHADONE HCL 40 MG DISPERSABLE TABLET PO SCH (06:26)
[2017-02-27] MEDS: cloNIDine HCL 0.1 MG TABLET PO SCH ×2 (10:35→21:52)
[2017-02-27] MEDS: PRENATAL VITAMINS W/ FOLIC ACID TABLET (FP) PO SCH (10:35)
[2017-02-27] MEDS: NICOTINE 21 MG/24 HOURS TOPICAL PATCH TD SCH (10:36)
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
--- NOTE | 2017-02-27 13:24 | EKG ---
Test Reason : Blood Pressure : / mmHG Vent. Rate : 074 BPM Atrial Rate : 074 BPM P-R Int : 138 ms QRS Dur : 084 ms QT Int : 412 ms P-R-T Axes : 051 011 020 degrees QTc Int : 457 ms NORMAL SINUS RHYTHM NORMAL ECG WHEN COMPARED WITH ECG OF 14-FEB-2017 17:55, NO SIGNIFICANT CHANGE WAS FOUND Confirmed by JENNA SAHNI MD ([id number]) on 02/27/2017 1:23:49 PM Referred By: Confirmed By:JENNA SAHNI MD
[2017-02-27] MEDS: diphenhydrAMINE HCL 50 MG CAPSULE PO PRN (21:52)
[2017-02-27] MEDS: THIAMINE HCL 100 MG TABLET (FP) PO SCH (21:52)
[2017-02-28] MEDS: METHADONE HCL 40 MG DISPERSABLE TABLET PO SCH (06:13)
[2017-02-28] MEDS: NICOTINE 21 MG/24 HOURS TOPICAL PATCH TD SCH (10:20)
[2017-02-28] MEDS: cloNIDine HCL 0.1 MG TABLET PO SCH ×2 (10:20→21:43)
[2017-02-28] MEDS: PRENATAL VITAMINS W/ FOLIC ACID TABLET (FP) PO SCH (10:20)
[2017-02-28] MEDS: ESCITALOPRAM OXALATE 10 MG TABLET (FP) PO SCH (10:20)
[2017-02-28] MEDS: diphenhydrAMINE HCL 50 MG CAPSULE PO PRN (21:43)
[2017-02-28] MEDS: THIAMINE HCL 100 MG TABLET (FP) PO SCH (21:43)
[2017-03-01] MEDS: METHADONE HCL 40 MG DISPERSABLE TABLET PO SCH (06:14)
[2017-03-01] MEDS: ESCITALOPRAM OXALATE 10 MG TABLET (FP) PO SCH (10:12)
[2017-03-01] MEDS: cloNIDine HCL 0.1 MG TABLET PO SCH ×2 (10:12→21:45)
[2017-03-01] MEDS: PRENATAL VITAMINS W/ FOLIC ACID TABLET (FP) PO SCH (10:12)
[2017-03-01] MEDS: NICOTINE 21 MG/24 HOURS TOPICAL PATCH TD SCH (10:13)
[2017-03-01] MEDS: THIAMINE HCL 100 MG TABLET (FP) PO SCH (21:45)
[2017-03-01] MEDS: diphenhydrAMINE HCL 50 MG CAPSULE PO PRN (21:45)
[2017-03-02] MEDS: METHADONE HCL 40 MG DISPERSABLE TABLET PO SCH (06:42)
[2017-03-02] MEDS: cloNIDine HCL 0.1 MG TABLET PO SCH ×2 (10:38→22:12)
[2017-03-02] MEDS: ESCITALOPRAM OXALATE 10 MG TABLET (FP) PO SCH (10:39)
[2017-03-02] MEDS: NICOTINE 21 MG/24 HOURS TOPICAL PATCH TD SCH (10:39)
[2017-03-02] MEDS: PRENATAL VITAMINS W/ FOLIC ACID TABLET (FP) PO SCH (10:39)
[2017-03-02] MEDS: THIAMINE HCL 100 MG TABLET (FP) PO SCH (22:12)
[2017-03-02] MEDS: diphenhydrAMINE HCL 50 MG CAPSULE PO PRN (22:13)
[2017-03-03] MEDS: METHADONE HCL 40 MG DISPERSABLE TABLET PO SCH (06:38)
[2017-03-03] MEDS: ESCITALOPRAM OXALATE 10 MG TABLET (FP) PO SCH (10:25)
[2017-03-03] MEDS: cloNIDine HCL 0.1 MG TABLET PO SCH ×2 (10:25→21:50)
[2017-03-03] MEDS: PRENATAL VITAMINS W/ FOLIC ACID TABLET (FP) PO SCH (10:26)
[2017-03-03] MEDS: NICOTINE 21 MG/24 HOURS TOPICAL PATCH TD SCH (10:26)
[2017-03-03] MEDS: diphenhydrAMINE HCL 50 MG CAPSULE PO PRN (21:50)
[2017-03-03] MEDS: THIAMINE HCL 100 MG TABLET (FP) PO SCH (21:50)
[2017-03-04] MEDS: METHADONE HCL 40 MG DISPERSABLE TABLET PO SCH (06:17)
[2017-03-04] MEDS: PRENATAL VITAMINS W/ FOLIC ACID TABLET (FP) PO SCH (10:34)
[2017-03-04] MEDS: cloNIDine HCL 0.1 MG TABLET PO SCH ×2 (10:34→21:58)
[2017-03-04] MEDS: NICOTINE 21 MG/24 HOURS TOPICAL PATCH TD SCH (10:34)
[2017-03-04] MEDS: ESCITALOPRAM OXALATE 10 MG TABLET (FP) PO SCH (10:34)
[2017-03-04] MEDS: THIAMINE HCL 100 MG TABLET (FP) PO SCH (21:58)
[2017-03-04] MEDS: diphenhydrAMINE HCL 50 MG CAPSULE PO PRN (21:58)
[2017-03-05] MEDS: METHADONE HCL 40 MG DISPERSABLE TABLET PO SCH (06:26)
[2017-03-05] MEDS: ESCITALOPRAM OXALATE 10 MG TABLET (FP) PO SCH (10:41)
[2017-03-05] MEDS: PRENATAL VITAMINS W/ FOLIC ACID TABLET (FP) PO SCH (10:41)
[2017-03-05] MEDS: NICOTINE 21 MG/24 HOURS TOPICAL PATCH TD SCH (10:41)
[2017-03-05] MEDS: cloNIDine HCL 0.1 MG TABLET PO SCH (10:41)
[2017-03-05] MEDS: THIAMINE HCL 100 MG TABLET (FP) PO SCH (21:46)
[2017-03-06] MEDS: METHADONE HCL 40 MG DISPERSABLE TABLET PO SCH (06:11)
[2017-03-06] MEDS: NICOTINE 21 MG/24 HOURS TOPICAL PATCH TD SCH (10:39)
[2017-03-06] MEDS: ESCITALOPRAM OXALATE 10 MG TABLET (FP) PO SCH (10:39)
[2017-03-06] MEDS: PRENATAL VITAMINS W/ FOLIC ACID TABLET (FP) PO SCH (10:39)
[2017-03-06] MEDS: THIAMINE HCL 100 MG TABLET (FP) PO SCH (21:58)
[2017-03-07] MEDS: METHADONE HCL 40 MG DISPERSABLE TABLET PO SCH (06:20)
[2017-03-07 06:47] VITALS: BP 122/87; PULSE 76; TEMP 97.8
[2017-03-07] MEDS: ESCITALOPRAM OXALATE 10 MG TABLET (FP) PO SCH (10:45)
[2017-03-07] MEDS: PRENATAL VITAMINS W/ FOLIC ACID TABLET (FP) PO SCH (10:45)
[2017-03-07] MEDS: NICOTINE 21 MG/24 HOURS TOPICAL PATCH TD SCH (10:46)
--- NOTE | 2017-03-07 13:34 | PN ---
Psychiatric Progress Note Vital Signs: Vital Signs Period Temp Pulse Resp BP Sys/Phipps Pulse Ox Last 24 Hr 97.8 F 76 18-18 122/87 Date of Session: 03/07/17 Chief Complaint:: Discharge Note HPI: Patient addressing Alcohol Dependence comorbid with Opoid Dependence on Agonist Therapy, Nicotine Dependence and Alcohol-induced Mood Disorder ROS: PPD+ Current Medications: Active Medications Generic Name Dose Route Start Last Admin Trade Name Freq PRN Reason Stop Dose Admin Acetaminophen 650 mg 02/26/17 13:21 Tylenol - PO Q4H PRN PAIN Al Hydroxide/Mg Hydroxide 30 ml 02/26/17 13:21 Mylanta Oral Suspension - PO Q6H PRN DYSPEPSIA Escitalopram Oxalate 10 mg 02/28/17 10:00 03/07/17 10:45 Lexapro - PO 10 mg DAILY MIESHA Administration Eucalyptus/Menthol/Phenol/Sorbitol 1 each 02/26/17 13:21 Cepastat Lozenge - MM Q4H PRN SORE THROAT Guaifenesin 10 ml 02/26/17 13:21 Robitussin Dm - PO Q6H PRN COUGH Hydroxyzine Pamoate 50 mg 02/26/17 13:21 Vistaril - PO Q4H PRN AGITATION Ibuprofen 400 mg 02/26/17 13:21 Motrin - PO Q6H PRN SEVERE PAIN Loperamide HCl 4 mg 02/26/17 13:21 Imodium - PO Q6H PRN DIARRHEA Magnesium Citrate 300 ml 02/26/17 13:21 Citroma - PO Q48H PRN CONSTIPATION Magnesium Hydroxide 30 ml 02/26/17 13:21 Milk Of Magnesia - PO DAILY PRN CONSTIPATION Methadone HCl 120 mg 03/05/17 06:00 03/07/17 06:20 Dolophine - PO 120 mg DAILY@0600 MIESHA Administration Nicotine 21 mg 02/27/17 10:00 03/07/17 10:46 Nicoderm Patch - TD 21 mg DAILY MIESHA Administration Nicotine Polacrilex 4 mg 02/26/17 13:21 Nicorette Gum - BUC Q2H PRN NICOTINE REPLACEMENT RX Multivit/Folic Acid/Iron 1 tab 02/27/17 10:00 03/07/17 10:45 Vitamins (Sjr) - PO 1 tab DAILY MIESHA Administration Pseudoephedrine/Triprolidine 1 combo 02/26/17 13:21 Actifed - PO TID PRN NASAL CONGESTION Thiamine HCl 100 mg 02/26/17 22:00 03/06/17 21:58 Vitamin B1 - PO 100 mg HS MIESHA Administration Current Side Effect: No Lab tests ordered: Yes Lab tests reviewed: Yes Provider note:: Patient has completed this program today. He has met his short term goals and will continue to address his issues in outpatient treatment at [facility]. Told senior copywriter that from his participation in this program, he has learned the importance of establishing a sober support network in order to maintain abstinence. He responded well to Lexapro 10 mg po daily. Script for 30 days supply of that medication is electronically transmitted to [facility] at [address] [place] [address]. Patient is stable for discharge today Total face to face time:: 35 Mental Status Exam - Mental Status Exam Alert and Oriented to: Time, Place, Person Cognitive Function: Fair Patient Appearance: Well Groomed Mood: Hopeful, Euthymic Affect: Appropriate Patient Behavior: Cooperative Speech Pattern: Clear Voice Loudness: Normal Thought Process: Intact Thought Disorder: Not Present Hallucinations: Denies Suicidal Ideation: Denies Homicidal Ideation: Denies Insight/Judgement: Fair Sleep: Fair Appetite: Good Muscle strength/Tone: Normal Gait/Station: Normal Psychiatric Treatment Plan - Problem List (1) Alcohol dependence Current Visit: Yes (2) Opioid dependence on agonist therapy Current Visit: Yes (3) Nicotine dependence Current Visit: Yes Qualifiers: Nicotine product type: cigarettes Substance use status: uncomplicated Qualified Code(s): F17.210 - Nicotine dependence, cigarettes, uncomplicated; F17.210 - Nicotine dependence, cigarettes, uncomplicated (4) 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 Initial treatment plan: Patient is discharged today and referred back to [facility] for outpatient treatment
== END 2017-03-07 14:30 | disposition home or self-care (01) | DRG 772 ==
LOC: YASAS 08:35 → Y5N 13:26
PROVIDERS: ADMIT Psychiatry & Neurology Psychiatry; ATTEND Psychiatry & Neurology Psychiatry
PROC: HZ42ZZZ Group Counseling for Substance Abuse Treatment, Cognitive-Behavioral (ICD-10-PCS; principal; 2017-02-26)
DX: F11.20 Opioid dependence, uncomplicated (principal); F10.20 Alcohol dependence, uncomplicated; F17.210 Nicotine dependence, cigarettes, uncomplicated; F10.280 Alcohol dependence with alcohol-induced anxiety disorder; R76.11 Nonspecific reaction to tuberculin skin test without active tuberculosis
CPT/HCPCS: 81003; 81015; 93005; 93010

== ENCOUNTER 2017-06-20 16:47 | Inpatient (IN) | payer OTHER ==
[2017-06-20 18:33] VITALS: BMI 32.7
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
[2017-06-20] MEDS ORDERED: MAGNESIUM HYDROX 2400MG/30ML ORAL SUSPENSION 30 ML CUP PO PRN (20:43)
[2017-06-20] MEDS ORDERED: MENTHOL/PHENOL 1 EACH UD MM PRN (20:43)
[2017-06-20] MEDS ORDERED: ACETAMINOPHEN 325 MG TABLET (FP) PO PRN (20:43)
[2017-06-20] MEDS ORDERED: chlordiazePOXIDE HCL 25 MG CAPSULE PO ONE (20:43)
[2017-06-20] MEDS ORDERED: chlordiazePOXIDE HCL 25 MG CAPSULE PO PRN (20:43)
[2017-06-20] MEDS ORDERED: MAGNESIUM CITRATE 300 ML BOTTLE PO PRN (20:43)
[2017-06-20] MEDS ORDERED: MAG HYDROX/AL HYDROX/SIMETH 30 ML UNIT-DOSE CUP PO PRN (20:43)
[2017-06-20] MEDS ORDERED: IBUPROFEN 400 MG TABLET (FP) PO PRN (20:43)
[2017-06-20] MEDS ORDERED: P-EPHED 60MG/TRIPROLIDI 2.5MG TABLET PO PRN (20:43)
[2017-06-20] MEDS ORDERED: NICOTINE POLACRILEX 2 MG GUM BUC PRN (20:43)
[2017-06-20] MEDS ORDERED: LOPERAMIDE HCL 2 MG CAPSULE PO PRN (20:43)
[2017-06-20] MEDS ORDERED: guaiFENesin/D-METHORPHAN HB 10 ML UNIT-DOSE CUPS PO PRN (20:43)
[2017-06-20] MEDS: THIAMINE HCL 100 MG TABLET (FP) PO SCH (22:50)
[2017-06-20] MEDS: chlordiazePOXIDE HCL 25 MG CAPSULE PO SCH (22:50)
[2017-06-20] MEDS: NICOTINE 21 MG/24 HOURS TOPICAL PATCH TD SCH (22:52)
[2017-06-20 23:26] LABS: URINE APPEARANCE TURBID; URINE BILIRUBIN NEGATIVE (NEGATIVE); URINE BLOOD NEGATIVE (NEGATIVE); URINE COLOR RED; URINE GLUCOSE (UA) NEGATIVE (NEGATIVE); URINE KETONE TRACE (NEGATIVE); URINE LEUK ESTERASE NEGATIVE (NEGATIVE); URINE NITRITE NEGATIVE (NEGATIVE); URINE PROTEIN NEGATIVE (NEGATIVE); URINE UROBILINOGEN NEGATIVE mg/dL (0.2-1.0)
[2017-06-21] MEDS: chlordiazePOXIDE HCL 25 MG CAPSULE PO SCH ×4 (05:41→22:20)
--- NOTE | 2017-06-21 09:20 | EKG ---
Test Reason : Blood Pressure : / mmHG Vent. Rate : 090 BPM Atrial Rate : 090 BPM P-R Int : 132 ms QRS Dur : 076 ms QT Int : 382 ms P-R-T Axes : 038 022 006 degrees QTc Int : 467 ms NORMAL SINUS RHYTHM NORMAL ECG WHEN COMPARED WITH ECG OF 26-FEB-2017 18:02, NO SIGNIFICANT CHANGE WAS FOUND Confirmed by ZHANNA GRANT MD ([id number]) on 06/21/2017 9:19:50 AM Referred By: Confirmed By:ZHANNA GRANT MD
[2017-06-21] MEDS ORDERED: METHADONE HCL 40 MG DISPERSABLE TABLET PO ONE (09:30)
[2017-06-21 09:54] LABS: HEMATOCRIT 49.1 % (35.4-49); HEMOGLOBIN 16.1 GM/dL (11.7-16.9); MCH 31.3 pg (25.7-33.7); MCHC 32.8 g/dl (32.0-35.9); MEAN CELL VOLUME 95.2 fl (80-96); MEAN PLT VOLUME 9.1 fl (7.5-11.1); PLATELET COUNT 214 K/MM3 (134-434); RBC 5.15 M/mm3 (4.00-5.60); RDW 12.8 % (11.9-15.9); WHITE BLOOD COUNT 6.7 K/mm3 (4.0-10.0)
[2017-06-21] MEDS: PRENATAL VITAMINS W/ FOLIC ACID TABLET (FP) PO SCH (10:18)
[2017-06-21] MEDS: NICOTINE 21 MG/24 HOURS TOPICAL PATCH TD SCH (10:19)
[2017-06-21 10:21] LABS: ALBUMIN 3.9 g/dl (3.4-5.0); ANION GAP 7 (8-16); BLOOD UREA NITROGEN 17 mg/dL (7-18); CALCIUM 8.8 mg/dL (8.5-10.1); CHLORIDE 99 mmol/L (98-107); CO2 31 mmol/L (21-32); GLUCOSE,RANDOM 96 mg/dL (74-106); SODIUM 137 mmol/L (136-145)
[2017-06-21 10:25] LABS: ALK PHOS 162 U/L (45-117); BILIRUBIN,TOTAL 1.1 mg/dL (0.2-1.0); CREATININE 0.9 mg/dL (0.7-1.3); SGOT/AST 103 U/L (15-37); SGPT/ALT 213 U/L (12-78); TOT PROT 7.8 g/dl (6.4-8.2)
--- NOTE | 2017-06-21 10:38 | PN ---
S CIWA - CIWA Score Nausea/Vomitin-No Nausea/No Vomiting Muscle Tremors: 4-Moderate,w/Arms Extend Anxiety: 3 Agitation: 4-Moderately Restless Paroxysmal Sweats: 3 Orientation: 0-Oriented Tacttile Disturbances: 0-None Auditory Disturbances: 0-None Visual Disturbances: 0-None Headache: 0-None Present CIWA-Ar Total Score: 14 BHS Progress Note (SOAP) Subjective: shakes sweats body aches interrupted sleep Objective: 06/21/17 10:37 Vital Signs Temperature 97.0 F L 06/21/17 06:00 Pulse Rate 71 06/21/17 06:00 Respiratory Rate 18 06/21/17 06:00 Blood Pressure 142/90 06/21/17 06:00 O2 Sat by Pulse Oximetry (%) Laboratory Tests 06/20/17 06/21/17 23:10 07:30 WBC 6.7 RBC 5.15 Hgb 16.1 Hct 49.1 H MCV 95.2 MCH 31.3 MCHC 32.8 RDW 12.8 Plt Count 214 MPV 9.1 Urine Color Red Urine Appearance Turbid Urine pH 5.0 Ur Specific [place] 1.025 Urine Protein Negative Urine Glucose (UA) Negative Urine Ketones Trace H Urine Blood Negative Urine Nitrite Negative Urine Bilirubin Negative Urine Urobilinogen Negative Ur Leukocyte Esterase Negative labs pending aaox3 ambulating no acute distress Assessment: 06/21/17 10:37 withdrawal sx Plan: continue detox increase fluids labs pending
[2017-06-21] MEDS ORDERED: FLU VACCINE QUAD 60 MCG/0.5 ML (MDV 17-18) IM ONE (12:00)
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
[2017-06-21] MEDS: THIAMINE HCL 100 MG TABLET (FP) PO SCH (22:20)
[2017-06-21] MEDS: diphenhydrAMINE HCL 50 MG CAPSULE PO PRN (22:21)
[2017-06-22] MEDS: chlordiazePOXIDE HCL 25 MG CAPSULE PO SCH ×3 (06:00→17:46)
[2017-06-22] MEDS: METHADONE HCL 40 MG DISPERSABLE TABLET PO SCH (06:00)
[2017-06-22] MEDS: PRENATAL VITAMINS W/ FOLIC ACID TABLET (FP) PO SCH (10:11)
[2017-06-22] MEDS: NICOTINE 21 MG/24 HOURS TOPICAL PATCH TD SCH (10:12)
--- NOTE | 2017-06-22 13:15 | PN ---
S CIWA - CIWA Score Nausea/Vomitin Muscle Tremors: 3 Anxiety: 3 Agitation: 2 Paroxysmal Sweats: 1-Minimal Palms Moist Orientation: 0-Oriented Tacttile Disturbances: 1-Very Mild Itch/Numbness Auditory Disturbances: 1-Very Mild Visual Disturbances: 0-None Headache: 2-Mild CIWA-Ar Total Score: 16 BHS Progress Note (SOAP) Subjective: ALERT,IRRITABLE,ANXIOUS,INTERRUPTED SLEEP,TREMOR Objective: 06/22/17 13:12 Vital Signs Temperature 97.0 F L 06/22/17 09:56 Pulse Rate 103 H 06/22/17 09:56 Respiratory Rate 20 06/22/17 09:56 Blood Pressure 152/98 06/22/17 09:56 O2 Sat by Pulse Oximetry (%) 06/22/17 13:12 Laboratory Last Values WBC 6.7 K/mm3 (4.0-10.0) 06/21/17 07:30 RBC 5.15 M/mm3 (4.00-5.60) 06/21/17 07:30 Hgb 16.1 GM/dL (11.7-16.9) 06/21/17 07:30 Hct 49.1 % (35.4-49) H 06/21/17 07:30 MCV 95.2 fl (80-96) 06/21/17 07:30 MCH 31.3 pg (25.7-33.7) 06/21/17 07:30 MCHC 32.8 g/dl (32.0-35.9) 06/21/17 07:30 RDW 12.8 % (11.9-15.9) 06/21/17 07:30 Plt Count 214 K/MM3 (134-434) 06/21/17 07:30 MPV 9.1 fl (7.5-11.1) 06/21/17 07:30 Sodium 137 mmol/L (136-145) 06/21/17 07:30 Potassium 4.0 mmol/L (3.5-5.1) 06/21/17 07:30 Chloride 99 mmol/L (98-107) 06/21/17 07:30 Carbon Dioxide 31 mmol/L (21-32) 06/21/17 07:30 Anion Gap 7 (8-16) L 06/21/17 07:30 BUN 17 mg/dL (7-18) D 06/21/17 07:30 Creatinine 0.9 mg/dL (0.7-1.3) 06/21/17 07:30 Creat Clearance w eGFR > 60 (>60) 06/21/17 07:30 Random Glucose 96 mg/dL (74-106) 06/21/17 07:30 Calcium 8.8 mg/dL (8.5-10.1) 06/21/17 07:30 Total Bilirubin 1.1 mg/dL (0.2-1.0) H D 06/21/17 07:30 AST 103 U/L (15-37) H D 06/21/17 07:30 ALT 213 U/L (12-78) H 06/21/17 07:30 Alkaline Phosphatase 162 U/L (45-117) H 06/21/17 07:30 Total Protein 7.8 g/dl (6.4-8.2) 06/21/17 07:30 Albumin 3.9 g/dl (3.4-5.0) 06/21/17 07:30 Urine Color Red 06/20/17 23:10 Urine Appearance Turbid 06/20/17 23:10 Urine pH 5.0 (5.0-8.0) 06/20/17 23:10 Ur Specific [place] 1.025 (1.001-1.035) 06/20/17 23:10 Urine Protein Negative (NEGATIVE) 06/20/17 23:10 Urine Glucose (UA) Negative (NEGATIVE) 06/20/17 23:10 Urine Ketones Trace (NEGATIVE) H 06/20/17 23:10 Urine Blood Negative (NEGATIVE) 06/20/17 23:10 Urine Nitrite Negative (NEGATIVE) 06/20/17 23:10 Urine Bilirubin Negative (NEGATIVE) 06/20/17 23:10 Urine Urobilinogen Negative mg/dL (0.2-1.0) 06/20/17 23:10 Ur Leukocyte Esterase Negative (NEGATIVE) 06/20/17 23:10 RPR Titer Nonreactive (NONREACTIVE) 06/21/17 07:30 Assessment: 06/22/17 13:13 WITHDRAWAL SYMPTOM Plan: CONTINUE DETOX,REPEAT ALT,AST IN AM DUE TO ELEVATION OF AST,ALT,D/G TYLENOL
[2017-06-22] MEDS: chlordiazePOXIDE 5 MG CAPSULE PO SCH (22:09)
[2017-06-22] MEDS: THIAMINE HCL 100 MG TABLET (FP) PO SCH (22:10)
[2017-06-22] MEDS: diphenhydrAMINE HCL 50 MG CAPSULE PO PRN (22:10)
[2017-06-23] MEDS: METHADONE HCL 40 MG DISPERSABLE TABLET PO SCH (05:09)
[2017-06-23] MEDS: chlordiazePOXIDE 5 MG CAPSULE PO SCH ×3 (05:10→17:56)
[2017-06-23] MEDS: PRENATAL VITAMINS W/ FOLIC ACID TABLET (FP) PO SCH (10:14)
[2017-06-23] MEDS: NICOTINE 21 MG/24 HOURS TOPICAL PATCH TD SCH (10:14)
[2017-06-23 11:04] LABS: SGPT/ALT 194 U/L (12-78)
[2017-06-23 11:06] LABS: INR 0.91 (0.82-1.09); PROTHROMBIN TIME (PATIENT) 10.3 SEC (9.98-11.88)
[2017-06-23 11:59] LABS: SGOT/AST 78 U/L (15-37)
--- NOTE | 2017-06-23 15:48 | PN ---
S Progress Note (SOAP) Subjective: alert oriented x 3 less tremor no sweat Objective: 06/23/17 15:47 Vital Signs Temperature 97.2 F L 06/23/17 14:44 Pulse Rate 100 H 06/23/17 14:44 Respiratory Rate 16 06/23/17 14:44 Blood Pressure 140/87 06/23/17 14:44 O2 Sat by Pulse Oximetry (%) Laboratory Last Values WBC 6.7 K/mm3 (4.0-10.0) 06/21/17 07:30 RBC 5.15 M/mm3 (4.00-5.60) 06/21/17 07:30 Hgb 16.1 GM/dL (11.7-16.9) 06/21/17 07:30 Hct 49.1 % (35.4-49) H 06/21/17 07:30 MCV 95.2 fl (80-96) 06/21/17 07:30 MCH 31.3 pg (25.7-33.7) 06/21/17 07:30 MCHC 32.8 g/dl (32.0-35.9) 06/21/17 07:30 RDW 12.8 % (11.9-15.9) 06/21/17 07:30 Plt Count 214 K/MM3 (134-434) 06/21/17 07:30 MPV 9.1 fl (7.5-11.1) 06/21/17 07:30 PT with INR 10.30 SEC (9.98-11.88) 06/23/17 08:00 INR 0.91 (0.82-1.09) 06/23/17 08:00 Sodium 137 mmol/L (136-145) 06/21/17 07:30 Potassium 4.0 mmol/L (3.5-5.1) 06/21/17 07:30 Chloride 99 mmol/L (98-107) 06/21/17 07:30 Carbon Dioxide 31 mmol/L (21-32) 06/21/17 07:30 Anion Gap 7 (8-16) L 06/21/17 07:30 BUN 17 mg/dL (7-18) D 06/21/17 07:30 Creatinine 0.9 mg/dL (0.7-1.3) 06/21/17 07:30 Creat Clearance w eGFR > 60 (>60) 06/21/17 07:30 Random Glucose 96 mg/dL (74-106) 06/21/17 07:30 Calcium 8.8 mg/dL (8.5-10.1) 06/21/17 07:30 Total Bilirubin 1.1 mg/dL (0.2-1.0) H D 06/21/17 07:30 AST 78 U/L (15-37) H D 06/23/17 08:00 ALT 194 U/L (12-78) H 06/23/17 08:00 Alkaline Phosphatase 162 U/L (45-117) H 06/21/17 07:30 Total Protein 7.8 g/dl (6.4-8.2) 06/21/17 07:30 Albumin 3.9 g/dl (3.4-5.0) 06/21/17 07:30 Urine Color Red 06/20/17 23:10 Urine Appearance Turbid 06/20/17 23:10 Urine pH 5.0 (5.0-8.0) 06/20/17 23:10 Ur Specific [place] 1.025 (1.001-1.035) 06/20/17 23:10 Urine Protein Negative (NEGATIVE) 06/20/17 23:10 Urine Glucose (UA) Negative (NEGATIVE) 06/20/17 23:10 Urine Ketones Trace (NEGATIVE) H 06/20/17 23:10 Urine Blood Negative (NEGATIVE) 06/20/17 23:10 Urine Nitrite Negative (NEGATIVE) 06/20/17 23:10 Urine Bilirubin Negative (NEGATIVE) 06/20/17 23:10 Urine Urobilinogen Negative mg/dL (0.2-1.0) 06/20/17 23:10 Ur Leukocyte Esterase Negative (NEGATIVE) 06/20/17 23:10 RPR Titer Nonreactive (NONREACTIVE) 06/21/17 07:30 lab noted Assessment: 06/23/17 15:47 mild withdrawal sx Plan: medically supervised detox
[2017-06-23] MEDS: THIAMINE HCL 100 MG TABLET (FP) PO SCH (22:36)
[2017-06-23] MEDS: diphenhydrAMINE HCL 50 MG CAPSULE PO PRN (22:36)
[2017-06-23] MEDS: chlordiazePOXIDE HCL 10 MG CAPSULE PO SCH (22:36)
[2017-06-24] MEDS: METHADONE HCL 40 MG DISPERSABLE TABLET PO SCH (05:41)
[2017-06-24] MEDS: chlordiazePOXIDE HCL 10 MG CAPSULE PO SCH (05:42)
[2017-06-24 06:55] VITALS: BP 130/60; PULSE 90; TEMP 96.5
--- NOTE | 2017-06-24 09:32 | DS ---
[facility] Detox Discharge Summary Admission Date: 06/20/17 Discharge Date: 06/24/17 - History Additional Comments: pt states he will follow up at an outpatient [facility] speaking AA in [place] Pertinent Past History: MMTP HTN - non compliant - Physical Exam Results Vital Signs: Vital Signs Temperature 96.5 F L 06/24/17 06:00 Pulse Rate 90 06/24/17 06:00 Respiratory Rate 18 06/24/17 06:00 Blood Pressure 130/60 06/24/17 06:00 O2 Sat by Pulse Oximetry (%) Pertinent Admission Physical Exam Findings: withdrawal sx Vital Signs Temperature 96.5 F L 06/24/17 06:00 Pulse Rate 90 06/24/17 06:00 Respiratory Rate 18 06/24/17 06:00 Blood Pressure 130/60 06/24/17 06:00 O2 Sat by Pulse Oximetry (%) - Treatment Hospital Course: Detox Protocol Followed, Detoxed Safely, Responded well, Discharged Condition Good Patient has Accepted a Rehab Referral to: Outpatient AA meetings - Medication Discharge Medications: Ambulatory Orders Escitalopram Oxalate [Lexapro -] 10 mg PO DAILY #30 tablet 03/07/17 - Diagnosis (1) Alcohol dependence with uncomplicated withdrawal Current Visit: Yes Status: Acute (2) Opioid dependence on agonist therapy Current Visit: No Status: Acute (3) Substance-induced sleep disorder Current Visit: Yes Status: Acute (4) Anxiety and depression Current Visit: No Status: Chronic (5) Cannabis dependence Current Visit: No Status: Chronic (6) Depression (emotion) Current Visit: No Status: Chronic Qualifiers: Depression Type: unspecified Qualified Code(s): F32.9 - Major depressive disorder, single episode, unspecified (7) Nicotine dependence Current Visit: No Status: Chronic Qualifiers: Nicotine product type: cigarettes Substance use status: uncomplicated Qualified Code(s): F17.210 - Nicotine dependence, cigarettes, uncomplicated (8) 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
== END 2017-06-24 09:27 | disposition home or self-care (01) | DRG 773 ==
LOC: YASAS 16:47 → Y6N 20:39
PROVIDERS: ADMIT Internal Medicine; ATTEND Internal Medicine
PROC: HZ2ZZZZ Detoxification Services for Substance Abuse Treatment (ICD-10-PCS; principal; 2017-06-20)
DX: F10.230 Alcohol dependence with withdrawal, uncomplicated (principal); F11.20 Opioid dependence, uncomplicated; F12.20 Cannabis dependence, uncomplicated; F17.210 Nicotine dependence, cigarettes, uncomplicated; F19.282 Other psychoactive substance dependence with psychoactive substance-induced sleep disorder; F41.8 Other specified anxiety disorders; F32.9 Major depressive disorder, single episode, unspecified; G47.00 Insomnia, unspecified; I10 Essential (primary) hypertension; R00.0 Tachycardia, unspecified
CPT/HCPCS: 36415; 80053; 81003; 84450; 84460; 85027; 85610; 86593; 93005; 93010

== ENCOUNTER 2018-03-31 12:06 | Inpatient (IN) | payer OTHER ==
[2018-03-31 12:36] VITALS: BMI 38.4
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
[2018-03-31] MEDS ORDERED: MAGNESIUM CITRATE 300 ML BOTTLE PO PRN (14:32)
[2018-03-31] MEDS ORDERED: LOPERAMIDE HCL 2 MG CAPSULE PO PRN (14:32)
[2018-03-31] MEDS ORDERED: NICOTINE POLACRILEX 2 MG GUM BUC PRN (14:32)
[2018-03-31] MEDS ORDERED: chlordiazePOXIDE HCL 25 MG CAPSULE PO PRN (14:32)
[2018-03-31] MEDS ORDERED: guaiFENesin/D-METHORPHAN HB 10 ML UNIT-DOSE CUPS PO PRN (14:32)
[2018-03-31] MEDS ORDERED: MAG HYDROX/AL HYDROX/SIMETH 30 ML UNIT-DOSE CUP PO PRN (14:32)
[2018-03-31] MEDS ORDERED: ACETAMINOPHEN 325 MG TABLET (FP) PO PRN (14:32)
[2018-03-31] MEDS ORDERED: P-EPHED 60MG/TRIPROLIDI 2.5MG TABLET PO PRN (14:32)
[2018-03-31] MEDS ORDERED: MAGNESIUM HYDROX 2400MG/30ML ORAL SUSPENSION 30 ML CUP PO PRN (14:32)
[2018-03-31] MEDS ORDERED: hydrOXYzine PAMOATE 50 MG CAPSULE (FP) PO PRN (14:32)
[2018-03-31] MEDS ORDERED: MENTHOL/PHENOL 1 EACH UD MM PRN (14:32)
[2018-03-31] MEDS ORDERED: IBUPROFEN 400 MG TABLET (FP) PO PRN (14:32)
[2018-03-31] MEDS ORDERED: cloNIDine HCL 0.1 MG TABLET PO ONE ×2 (14:35→19:00)
[2018-03-31] MEDS: NICOTINE 21 MG/24 HOURS TOPICAL PATCH TD SCH (15:45)
[2018-03-31] MEDS: chlordiazePOXIDE HCL 25 MG CAPSULE PO SCH ×2 (17:37→22:12)
[2018-03-31] MEDS: THIAMINE HCL 100 MG TABLET (FP) PO SCH (22:11)
[2018-03-31] MEDS: MELATONIN 5 MG TABLETS PO PRN (22:12)
[2018-03-31 23:06] LABS: URINE APPEARANCE CLOUDY; URINE BILIRUBIN NEGATIVE (<2.0 mg/dL); URINE COLOR AMBER; URINE GLUCOSE (UA) NEGATIVE (NEGATIVE); URINE KETONE NEGATIVE (NEGATIVE); URINE LEUK ESTERASE TRACE (NEGATIVE); URINE NITRITE NEGATIVE (NEGATIVE); URINE PROTEIN 3+ (NEGATIVE)
[2018-03-31 23:12] LABS: EPI CELLS RARE /HPF (FEW); URINE BACTERIA MODERATE /hpf (NONE SEEN); URINE MUCUS MODERATE
[2018-04-01] MEDS: chlordiazePOXIDE HCL 25 MG CAPSULE PO SCH ×4 (06:06→22:28)
[2018-04-01] MEDS: METHADONE HCL 40 MG DISPERSABLE TABLET PO SCH (06:06)
[2018-04-01 10:20] LABS: HEMATOCRIT 48.1 % (35.4-49); HEMOGLOBIN 15.9 GM/dL (11.7-16.9); MEAN CELL VOLUME 97.1 fl (80-96); MEAN PLT VOLUME 8.9 fl (7.5-11.1); PLATELET COUNT 146 K/MM3 (134-434); RBC 4.96 M/mm3 (4.00-5.60); RDW 12.4 % (11.9-15.9); WHITE BLOOD COUNT 4.6 K/mm3 (4.0-10.0)
[2018-04-01] MEDS: NICOTINE 21 MG/24 HOURS TOPICAL PATCH TD SCH (10:24)
[2018-04-01] MEDS: PRENATAL VITAMINS W/ FOLIC ACID TABLET (FP) PO SCH (10:24)
[2018-04-01 10:51] LABS: ALBUMIN 3.3 g/dl (3.4-5.0); ALK PHOS 178 U/L (45-117); ANION GAP 10 MMOL/L (8-16); BILIRUBIN,TOTAL 1.2 mg/dL (0.2-1); BLOOD UREA NITROGEN 14 mg/dL (7-18); CALCIUM 8.4 mg/dL (8.5-10.1); CHLORIDE 95 mmol/L (98-107); CO2 30 mmol/L (21-32); CREATININE 0.8 mg/dL (0.55-1.3); GLUCOSE,RANDOM 107 mg/dL (74-106); POTASSIUM 3.8 mmol/L (3.5-5.1); SGOT/AST 104 U/L (15-37); SGPT/ALT 132 U/L (13-61); SODIUM 135 mmol/L (136-145)
--- NOTE | 2018-04-01 10:52 | PN ---
S CIWA - CIWA Score Nausea/Vomitin-No Nausea/No Vomiting Muscle Tremors: 4-Moderate,w/Arms Extend Anxiety: 3 Agitation: 3 Paroxysmal Sweats: 3 Orientation: 0-Oriented Tacttile Disturbances: 0-None Auditory Disturbances: 0-None Visual Disturbances: 0-None Headache: 0-None Present CIWA-Ar Total Score: 13 BHS Progress Note (SOAP) Subjective: agitation anxiety sweats shakes interrupted sleep body aches Objective: 04/01/18 10:50 Vital Signs Temperature 97.9 F 04/01/18 09:25 Pulse Rate 109 H 04/01/18 09:25 Respiratory Rate 18 04/01/18 09:25 Blood Pressure 164/112 H 04/01/18 09:25 O2 Sat by Pulse Oximetry (%) Laboratory Tests 03/31/18 04/01/18 23:00 07:00 WBC 4.6 RBC 4.96 Hgb 15.9 Hct 48.1 MCV 97.1 H MCH 32.0 MCHC 33.0 RDW 12.4 Plt Count 146 D MPV 8.9 Urine Color [place] Urine Appearance Cloudy Urine pH 6.0 Ur Specific [place] 1.034 Urine Protein 3+ H Urine Glucose (UA) Negative Urine Ketones Negative Urine Blood Negative Urine Nitrite Negative Urine Bilirubin Negative Urine Urobilinogen 2.0 Ur Leukocyte Esterase Trace Urine WBC (Auto) 22 Urine RBC (Auto) 68 Ur Epithelial Cells Rare Urine Bacteria Moderate Urine Mucus Moderate repeat BP repeat u/a aaox3 ambulating no acute distress Assessment: 04/01/18 10:51 withdrawal sx repeated BP 156/98 pulse 108 1 Plan: continue detox increase fluids cloniding 0.1mg bid with parameters ordered
[2018-04-01] MEDS: cloNIDine HCL 0.1 MG TABLET PO SCH ×2 (10:53→22:29)
[2018-04-01] MEDS: MELATONIN 5 MG TABLETS PO PRN (22:29)
[2018-04-01] MEDS: THIAMINE HCL 100 MG TABLET (FP) PO SCH (22:29)
[2018-04-02] MEDS: METHADONE HCL 40 MG DISPERSABLE TABLET PO SCH (05:21)
[2018-04-02] MEDS: chlordiazePOXIDE HCL 25 MG CAPSULE PO SCH ×2 (05:21→10:13)
[2018-04-02] MEDS: PRENATAL VITAMINS W/ FOLIC ACID TABLET (FP) PO SCH (10:13)
[2018-04-02] MEDS: NICOTINE 21 MG/24 HOURS TOPICAL PATCH TD SCH (10:13)
[2018-04-02] MEDS: cloNIDine HCL 0.1 MG TABLET PO SCH ×2 (10:13→22:14)
--- NOTE | 2018-04-02 11:51 | PN ---
[facility] CIWA - CIWA Score Nausea/Vomitin-Mild Nausea/No Vomiting Muscle Tremors: 3 Anxiety: 2 Agitation: 3 Paroxysmal Sweats: 1-Minimal Palms Moist Orientation: 0-Oriented Tacttile Disturbances: 0-None Auditory Disturbances: 0-None Visual Disturbances: 0-None Headache: 1-Very Mild CIWA-Ar Total Score: 11 S Progress Note (SOAP) Subjective: tremor sweat restlessness burning urination Objective: 04/02/18 12:19 Vital Signs Temperature 97.2 F L 04/02/18 09:14 Pulse Rate 77 04/02/18 09:14 Respiratory Rate 18 04/02/18 09:14 Blood Pressure 138/80 04/02/18 09:14 O2 Sat by Pulse Oximetry (%) Laboratory Last Values WBC 4.6 K/mm3 (4.0-10.0) 04/01/18 07:00 RBC 4.96 M/mm3 (4.00-5.60) 04/01/18 07:00 Hgb 15.9 GM/dL (11.7-16.9) 04/01/18 07:00 Hct 48.1 % (35.4-49) 04/01/18 07:00 MCV 97.1 fl (80-96) H 04/01/18 07:00 MCH 32.0 pg (25.7-33.7) 04/01/18 07:00 MCHC 33.0 g/dl (32.0-35.9) 04/01/18 07:00 RDW 12.4 % (11.9-15.9) 04/01/18 07:00 Plt Count 146 K/MM3 (134-434) D 04/01/18 07:00 MPV 8.9 fl (7.5-11.1) 04/01/18 07:00 Sodium 135 mmol/L (136-145) L 04/01/18 07:00 Potassium 3.8 mmol/L (3.5-5.1) 04/01/18 07:00 Chloride 95 mmol/L (98-107) L 04/01/18 07:00 Carbon Dioxide 30 mmol/L (21-32) 04/01/18 07:00 Anion Gap 10 MMOL/L (8-16) 04/01/18 07:00 BUN 14 mg/dL (7-18) 04/01/18 07:00 Creatinine 0.8 mg/dL (0.55-1.3) 04/01/18 07:00 Creat Clearance w eGFR > 60 (>60) 04/01/18 07:00 Random Glucose 107 mg/dL (74-106) H 04/01/18 07:00 Calcium 8.4 mg/dL (8.5-10.1) L 04/01/18 07:00 Total Bilirubin 1.2 mg/dL (0.2-1) H 04/01/18 07:00 AST 104 U/L (15-37) H 04/01/18 07:00 ALT 132 U/L (13-61) H 04/01/18 07:00 Alkaline Phosphatase 178 U/L (45-117) H 04/01/18 07:00 Total Protein 7.0 g/dl (6.4-8.2) 04/01/18 07:00 Albumin 3.3 g/dl (3.4-5.0) L 04/01/18 07:00 Urine Color Yumiko 03/31/18 23:00 Urine Appearance Cloudy 03/31/18 23:00 Urine pH 6.0 (5.0-8.0) 03/31/18 23:00 Ur Specific [place] 1.034 (1.010-1.035) 03/31/18 23:00 Urine Protein 3+ (NEGATIVE) H 03/31/18 23:00 Urine Glucose (UA) Negative (NEGATIVE) 03/31/18 23:00 Urine Ketones Negative (NEGATIVE) 03/31/18 23:00 Urine Blood Negative (NEGATIVE) 03/31/18 23:00 Urine Nitrite Negative (NEGATIVE) 03/31/18 23:00 Urine Bilirubin Negative (<2.0 mg/dL) 03/31/18 23:00 Urine Urobilinogen 2.0 mg/dL (0.2-1.0) 03/31/18 23:00 Ur Leukocyte Esterase Trace (NEGATIVE) 03/31/18 23:00 Urine WBC (Auto) 22 /hpf (3-5) 03/31/18 23:00 Urine RBC (Auto) 68 /hpf (0-3) 03/31/18 23:00 Ur Epithelial Cells Rare /HPF (FEW) 03/31/18 23:00 Urine Bacteria Moderate /hpf (NONE SEEN) 03/31/18 23:00 Urine Mucus Moderate 03/31/18 23:00 RPR Titer Nonreactive (NONREACTIVE) 04/01/18 07:00 lab noted uti with quesionable liver problems Assessment: 04/02/18 12:19 withdrawal sx uti Plan: continue detox macrodentin 50 mg q6h
[2018-04-02] MEDS: chlordiazePOXIDE 5 MG CAPSULE PO SCH ×2 (17:11→22:13)
[2018-04-02] MEDS: NITROFURANTOIN MACROCRYSTAL 50 MG CAPSULE (FP) PO SCH ×2 (17:11→23:07)
[2018-04-02] MEDS: THIAMINE HCL 100 MG TABLET (FP) PO SCH (22:13)
[2018-04-02] MEDS: MELATONIN 5 MG TABLETS PO PRN (22:15)
[2018-04-03] MEDS: METHADONE HCL 40 MG DISPERSABLE TABLET PO SCH (06:22)
[2018-04-03] MEDS: chlordiazePOXIDE 5 MG CAPSULE PO SCH ×2 (06:22→10:04)
[2018-04-03] MEDS: NITROFURANTOIN MACROCRYSTAL 50 MG CAPSULE (FP) PO SCH ×3 (06:22→18:02)
[2018-04-03] MEDS: cloNIDine HCL 0.1 MG TABLET PO SCH ×2 (10:04→22:25)
[2018-04-03] MEDS: PRENATAL VITAMINS W/ FOLIC ACID TABLET (FP) PO SCH (10:04)
[2018-04-03] MEDS: NICOTINE 21 MG/24 HOURS TOPICAL PATCH TD SCH (10:04)
--- NOTE | 2018-04-03 11:38 | PN ---
BHS Progress Note (SOAP) Subjective: feeling better no tremor less sweat sleep better at night Objective: 04/03/18 11:37 Vital Signs Temperature 97.3 F L 04/03/18 09:56 Pulse Rate 112 H 04/03/18 09:56 Respiratory Rate 18 04/03/18 09:56 Blood Pressure 137/94 04/03/18 09:56 O2 Sat by Pulse Oximetry (%) Laboratory Last Values WBC 4.6 K/mm3 (4.0-10.0) 04/01/18 07:00 RBC 4.96 M/mm3 (4.00-5.60) 04/01/18 07:00 Hgb 15.9 GM/dL (11.7-16.9) 04/01/18 07:00 Hct 48.1 % (35.4-49) 04/01/18 07:00 MCV 97.1 fl (80-96) H 04/01/18 07:00 MCH 32.0 pg (25.7-33.7) 04/01/18 07:00 MCHC 33.0 g/dl (32.0-35.9) 04/01/18 07:00 RDW 12.4 % (11.9-15.9) 04/01/18 07:00 Plt Count 146 K/MM3 (134-434) D 04/01/18 07:00 MPV 8.9 fl (7.5-11.1) 04/01/18 07:00 Sodium 135 mmol/L (136-145) L 04/01/18 07:00 Potassium 3.8 mmol/L (3.5-5.1) 04/01/18 07:00 Chloride 95 mmol/L (98-107) L 04/01/18 07:00 Carbon Dioxide 30 mmol/L (21-32) 04/01/18 07:00 Anion Gap 10 MMOL/L (8-16) 04/01/18 07:00 BUN 14 mg/dL (7-18) 04/01/18 07:00 Creatinine 0.8 mg/dL (0.55-1.3) 04/01/18 07:00 Creat Clearance w eGFR > 60 (>60) 04/01/18 07:00 Random Glucose 107 mg/dL (74-106) H 04/01/18 07:00 Calcium 8.4 mg/dL (8.5-10.1) L 04/01/18 07:00 Total Bilirubin 1.2 mg/dL (0.2-1) H 04/01/18 07:00 AST 104 U/L (15-37) H 04/01/18 07:00 ALT 132 U/L (13-61) H 04/01/18 07:00 Alkaline Phosphatase 178 U/L (45-117) H 04/01/18 07:00 Total Protein 7.0 g/dl (6.4-8.2) 04/01/18 07:00 Albumin 3.3 g/dl (3.4-5.0) L 04/01/18 07:00 Urine Color Yumiko 03/31/18 23:00 Urine Appearance Cloudy 03/31/18 23:00 Urine pH 6.0 (5.0-8.0) 03/31/18 23:00 Ur Specific [place] 1.034 (1.010-1.035) 03/31/18 23:00 Urine Protein 3+ (NEGATIVE) H 03/31/18 23:00 Urine Glucose (UA) Negative (NEGATIVE) 03/31/18 23:00 Urine Ketones Negative (NEGATIVE) 03/31/18 23:00 Urine Blood Negative (NEGATIVE) 03/31/18 23:00 Urine Nitrite Negative (NEGATIVE) 03/31/18 23:00 Urine Bilirubin Negative (<2.0 mg/dL) 03/31/18 23:00 Urine Urobilinogen 2.0 mg/dL (0.2-1.0) 03/31/18 23:00 Ur Leukocyte Esterase Trace (NEGATIVE) 03/31/18 23:00 Urine WBC (Auto) 22 /hpf (3-5) 03/31/18 23:00 Urine RBC (Auto) 68 /hpf (0-3) 03/31/18 23:00 Ur Epithelial Cells Rare /HPF (FEW) 03/31/18 23:00 Urine Bacteria Moderate /hpf (NONE SEEN) 03/31/18 23:00 Urine Mucus Moderate 03/31/18 23:00 RPR Titer Nonreactive (NONREACTIVE) 04/01/18 07:00 lab noted uti Assessment: 04/03/18 11:38 mild withdrawal sx Plan: medically supervised detox
[2018-04-03 16:20] LABS: URINE APPEARANCE CLEAR; URINE BILIRUBIN NEGATIVE (<2.0 mg/dL); URINE COLOR YELLOW; URINE GLUCOSE (UA) NEGATIVE (NEGATIVE); URINE KETONE NEGATIVE (NEGATIVE); URINE LEUK ESTERASE NEGATIVE (NEGATIVE); URINE NITRITE NEGATIVE (NEGATIVE); URINE PROTEIN NEGATIVE (NEGATIVE)
[2018-04-03] MEDS: chlordiazePOXIDE HCL 10 MG CAPSULE PO SCH ×2 (18:01→22:26)
[2018-04-03] MEDS: THIAMINE HCL 100 MG TABLET (FP) PO SCH (22:26)
[2018-04-03] MEDS: MELATONIN 5 MG TABLETS PO PRN (22:26)
[2018-04-04] MEDS: NITROFURANTOIN MACROCRYSTAL 50 MG CAPSULE (FP) PO SCH ×2 (00:01→05:39)
[2018-04-04] MEDS: METHADONE HCL 40 MG DISPERSABLE TABLET PO SCH (05:39)
[2018-04-04] MEDS: chlordiazePOXIDE HCL 10 MG CAPSULE PO SCH (05:39)
[2018-04-04 07:42] VITALS: BP 126/90; PULSE 92; TEMP 97.3
--- NOTE | 2018-04-04 08:43 | DS ---
[facility] Detox Discharge Summary Admission Date: 03/31/18 Discharge Date: 04/04/18 - History Present History: Alcohol Dependence, Cannabis Dependence - Physical Exam Results Vital Signs: Vital Signs Temperature 97.3 F L 04/04/18 07:41 Pulse Rate 92 H 04/04/18 07:41 Respiratory Rate 04/04/18 07:41 Blood Pressure 126/90 04/04/18 07:41 O2 Sat by Pulse Oximetry (%) - Treatment Hospital Course: Detox Protocol Followed, Detoxed Safely, Responded well, Discharged Condition Good, Rehab Referral Accepted - Medication Discharge Medications: Ambulatory Orders NK [No Known Home Medication] 03/31/18 - Diagnosis (1) Alcohol dependence with uncomplicated withdrawal Current Visit: Yes Status: Chronic (2) Bipolar 1 disorder, depressed Current Visit: No Status: Acute (3) Insomnia Current Visit: No Status: Acute (4) Substance-induced sleep disorder Current Visit: No Status: Acute (5) Anxiety and depression Current Visit: No Status: Chronic (6) Bipolar 1 disorder, depressed, mild Current Visit: No Status: Chronic (7) Cannabis dependence Current Visit: Yes Status: Chronic (8) Cocaine dependence Current Visit: Yes Status: Chronic Qualifiers: Substance use status: uncomplicated Qualified Code(s): F14.20 - Cocaine dependence, uncomplicated (9) Depression (emotion) Current Visit: No Status: Chronic Qualifiers: Depression Type: unspecified Qualified Code(s): F32.9 - Major depressive disorder, single episode, unspecified (10) History of positive PPD Current Visit: No Status: Chronic (11) Nicotine dependence Current Visit: Yes Status: Chronic Qualifiers: Nicotine product type: cigarettes Substance use status: uncomplicated Qualified Code(s): F17.210 - Nicotine dependence, cigarettes, uncomplicated (12) Positive PPD Current Visit: No Status: Chronic (13) anxiety and depression Current Visit: No Status: Chronic (14) 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
== END 2018-04-04 08:58 | disposition home or self-care (01) | DRG 773 ==
LOC: YASAS 12:06 → Y6N 14:35
PROC: HZ2ZZZZ Detoxification Services for Substance Abuse Treatment (ICD-10-PCS; principal; 2018-03-31)
DX: F10.230 Alcohol dependence with withdrawal, uncomplicated (principal); F11.20 Opioid dependence, uncomplicated; F14.20 Cocaine dependence, uncomplicated; F12.20 Cannabis dependence, uncomplicated; F17.210 Nicotine dependence, cigarettes, uncomplicated; F31.9 Bipolar disorder, unspecified; F41.9 Anxiety disorder, unspecified; F19.282 Other psychoactive substance dependence with psychoactive substance-induced sleep disorder; F32.9 Major depressive disorder, single episode, unspecified; R00.0 Tachycardia, unspecified; G47.00 Insomnia, unspecified; R76.11 Nonspecific reaction to tuberculin skin test without active tuberculosis; N39.0 Urinary tract infection, site not specified; Z86.69 Personal history of other diseases of the nervous system and sense organs
CPT/HCPCS: 36415; 80053; 81003; 81015; 85027; 86593; 87086; J0735

== ENCOUNTER 2018-07-20 09:01 | Inpatient (IN) | payer OTHER ==
[2018-07-20 10:29] VITALS: BMI 31.1
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
[2018-07-20] MEDS ORDERED: hydrOXYzine PAMOATE 25 MG CAPSULE (FP) PO PRN (13:00)
[2018-07-20] MEDS ORDERED: MAGNESIUM CITRATE 300 ML BOTTLE PO PRN (13:00)
[2018-07-20] MEDS ORDERED: MENTHOL/PHENOL 1 EACH UD MM PRN (13:00)
[2018-07-20] MEDS ORDERED: IBUPROFEN 400 MG TABLET (FP) PO PRN (13:00)
[2018-07-20] MEDS ORDERED: MAG HYDROX/AL HYDROX/SIMETH 30 ML UNIT-DOSE CUP PO PRN (13:00)
[2018-07-20] MEDS ORDERED: BISMUTH SUBSALICYLATE 524 MG/30 ML UD PO PRN (13:00)
[2018-07-20] MEDS ORDERED: METHOCARBAMOL 500 MG TABLET PO PRN (13:00)
[2018-07-20] MEDS ORDERED: MAGNESIUM HYDROX 2400MG/30ML ORAL SUSPENSION 30 ML CUP PO PRN (13:00)
[2018-07-20] MEDS ORDERED: ACETAMINOPHEN 325 MG TABLET (FP) PO PRN ×2 (13:00)
[2018-07-20] MEDS ORDERED: cloNIDine HCL 0.1 MG TABLET PO ONE ×2 (13:18→22:21)
[2018-07-20] MEDS: chlordiazePOXIDE HCL 25 MG CAPSULE PO PRN ×2 (15:19→19:31)
[2018-07-20] MEDS: chlordiazePOXIDE HCL 25 MG CAPSULE PO SCH ×2 (17:12→22:06)
[2018-07-20] MEDS: THIAMINE HCL 100 MG TABLET (FP) PO SCH (22:06)
[2018-07-20] MEDS: MELATONIN 5 MG TABLETS PO PRN (22:07)
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
--- NOTE | 2018-07-21 00:20 | PN ---
S Progress Note Note: PATIENT'S BLOOD PRESSURE IS B/P 160/117. Patient is asymptomatic Vital Signs Temperature 98.2 F 07/20/18 21:22 Pulse Rate 99 H 07/21/18 00:00 Respiratory Rate 18 07/21/18 00:30 Blood Pressure 160/117 H 07/20/18 22:15 O2 Sat by Pulse Oximetry (%) ACTION: Clonidine 0.1mg tablet 1 tablet oral ordered
[2018-07-21] MEDS: chlordiazePOXIDE HCL 25 MG CAPSULE PO SCH ×2 (05:12→10:37)
[2018-07-21] MEDS ORDERED: cloNIDine HCL 0.1 MG TABLET PO ONE ×2 (07:12→12:16)
--- NOTE | 2018-07-21 07:14 | PN ---
[facility] Progress Note Note: Patient's blood pressure this morning is B/P 177/112. Patient is asymptomatic Vital Signs Temperature 97 F L 07/21/18 06:22 Pulse Rate 79 07/21/18 06:22 Respiratory Rate 20 07/21/18 06:22 Blood Pressure 177/112 H 07/21/18 06:22 O2 Sat by Pulse Oximetry (%) Action: Clonidine 0.2mg tablet 1 tablet oral ordered
[2018-07-21 09:59] LABS: HEMATOCRIT 47.9 % (35.4-49); HEMOGLOBIN 16.9 GM/dL (11.7-16.9); MCH 33.6 pg (25.7-33.7); MCHC 35.2 g/dl (32.0-35.9); MEAN CELL VOLUME 95.4 fl (80-96); MEAN PLT VOLUME 8.8 fl (7.5-11.1); PLATELET COUNT 119 K/MM3 (134-434); RBC 5.02 M/mm3 (4.00-5.60); RDW 14.3 % (11.9-15.9)
[2018-07-21 10:29] LABS: ALBUMIN 3.5 g/dl (3.4-5.0); ALK PHOS 169 U/L (45-117); ANION GAP 10 MMOL/L (8-16); BILIRUBIN,TOTAL 2.5 mg/dL (0.2-1); BLOOD UREA NITROGEN 12 mg/dL (7-18); CHLORIDE 92 mmol/L (98-107); CO2 30 mmol/L (21-32); CREATININE 0.8 mg/dL (0.55-1.3); GLUCOSE,RANDOM 105 mg/dL (74-106); POTASSIUM 3.1 mmol/L (3.5-5.1); SGOT/AST 209 U/L (15-37); SGPT/ALT 213 U/L (13-61); SODIUM 133 mmol/L (136-145); TOT PROT 7.6 g/dl (6.4-8.2)
[2018-07-21] MEDS: PRENATAL VITAMINS W/ FOLIC ACID TABLET (FP) PO SCH (10:35)
[2018-07-21] MEDS: METHADONE HCL 40 MG DISPERSABLE TABLET PO SCH (10:37)
[2018-07-21] MEDS ORDERED: POTASSIUM CHLORIDE TABS 20 MEQ TABLET.ER (FP) PO ONE (12:17)
[2018-07-21] MEDS ORDERED: LORazepam 1 MG TABLET PO PRN (12:25)
[2018-07-21] MEDS ORDERED: TRIMETHOBENZAMIDE HCL 300 MG CAPSULE PO PRN (12:31)
--- NOTE | 2018-07-21 12:38 | PN ---
S CIWA - CIWA Score Nausea/Vomitin Muscle Tremors: 3 Anxiety: 2 Agitation: 0-Normal Activity Paroxysmal Sweats: 3 Orientation: 0-Oriented Tacttile Disturbances: 2-Mild Itch/Numbness/Burn Auditory Disturbances: 0-None Visual Disturbances: 2-Mild Sensitivity Headache: 0-None Present CIWA-Ar Total Score: 17 BHS Progress Note (SOAP) Subjective: Sweating, Tremors, Vomiting, Poor Appetite, Anxious, Interrupted sleep, Stomach Cramping. Objective: PATIENT A & O X 2 (UNCERTAIN ABOUT CURRENT DAY / DATE). PATIENT OBSERVED AMBULATING ON UNIT. IN NO ACUTE DISTRESS. 07/21/18 12:36 Vital Signs Temperature 97.7 F 07/21/18 09:09 Pulse Rate 103 H 07/21/18 09:09 Respiratory Rate 20 07/21/18 09:09 Blood Pressure 148/105 H 07/21/18 09:09 O2 Sat by Pulse Oximetry (%) Laboratory Tests 07/21/18 07/21/18 07:40 07:40 WBC 5.0 RBC 5.02 Hgb 16.9 Hct 47.9 MCV 95.4 MCH 33.6 MCHC 35.2 RDW 14.3 D Plt Count 119 L MPV 8.8 Sodium 133 L Potassium 3.1 L Chloride 92 L Carbon Dioxide 30 Anion Gap 10 BUN 12 Creatinine 0.8 Creat Clearance w eGFR 108.77 Random Glucose 105 Calcium 9.0 Total Bilirubin 2.5 H AST 209 H ALT 213 H Alkaline Phosphatase 169 H Total Protein 7.6 Albumin 3.5 LABS NOTED. Assessment: 07/21/18 12:36 WITHDRAWAL SYMPTOMS. HTN. HYPOKALEMIA. ELEVATED LIVER ENZYMES. HYPERBILIRUBINEMIA. 07/21/18 12:42 Plan: CONTINUE DETOX. INCREASE DAILY PO FLUID INTAKE. K-DUR, 20 MEQ PO BID FOR HYPOKALEMIA. RE-CHECK K LEVEL ON 07/23/2018. CLONIDINE, 0.1 MG PO BID FOR HTN. CHANGE FORM LIBRIUM TO ATIVAN DETOX PROTOCOL FOR SIGNIFICANTLY ELEVATED LIVER ENZYMES AND ELEVATED TOTAL BILIRUBIN LEVEL NOTED ON ADMISSION. HFP ORDERED FOR 07/23/2018 TO SEE IF ANY CHANGE. TIGAN PO PRN FOR NAUSEA / VOMITING.
--- NOTE | 2018-07-21 16:41 | PN ---
[facility] Progress Note Note: BP @ 1300: 151/99 BP @ 1630: 143/100 AMLODIPINE, 10 MG PO DAILY ORDERED. (FIRST DOSE NOW). WILL CONTINUE TO MONITOR BP. Cecil TORRES NP.
[2018-07-21] MEDS ORDERED: chlordiazePOXIDE HCL 25 MG CAPSULE PO SCH (17:00)
[2018-07-21] MEDS ORDERED: amLODIPine BESYLATE 10 MG TABLET (FP) PO ONE (17:00)
[2018-07-21] MEDS: POTASSIUM CHLORIDE TABS 20 MEQ TABLET.ER (FP) PO SCH (17:04)
[2018-07-21] MEDS: LORazepam 2 MG TABLET PO SCH ×2 (17:05→22:13)
[2018-07-21] MEDS ORDERED: cloNIDine HCL 0.1 MG TABLET PO SCH (22:00)
[2018-07-21] MEDS: THIAMINE HCL 100 MG TABLET (FP) PO SCH (22:13)
[2018-07-21] MEDS: cloNIDine HCL 0.1 MG TABLET PO SCH (22:13)
[2018-07-21] MEDS: MELATONIN 5 MG TABLETS PO PRN (22:14)
[2018-07-22] MEDS: METHADONE HCL 40 MG DISPERSABLE TABLET PO SCH (05:19)
[2018-07-22] MEDS: LORazepam 1 MG TABLET PO SCH ×4 (05:19→22:24)
--- NOTE | 2018-07-22 09:11 | PN ---
S CIWA - CIWA Score Nausea/Vomitin Muscle Tremors: 2 Anxiety: 2 Agitation: 2 Paroxysmal Sweats: 1-Minimal Palms Moist Orientation: 0-Oriented Tacttile Disturbances: 1-Very Mild Itch/Numbness Auditory Disturbances: 1-Very Mild Visual Disturbances: 0-None Headache: 2-Mild CIWA-Ar Total Score: 13 B[facility] Progress Note (SOAP) Subjective: alert,irritable,anxious,interrupted sleep,tremor Objective: 07/22/18 09:06 Vital Signs Temperature 96.7 F L 07/22/18 06:19 Pulse Rate 71 07/22/18 06:45 Respiratory Rate 18 07/22/18 06:44 Blood Pressure 141/88 07/22/18 06:45 O2 Sat by Pulse Oximetry (%) Laboratory Last Values WBC 5.0 K/mm3 (4.0-10.0) 07/21/18 07:40 RBC 5.02 M/mm3 (4.00-5.60) 07/21/18 07:40 Hgb 16.9 GM/dL (11.7-16.9) 07/21/18 07:40 Hct 47.9 % (35.4-49) 07/21/18 07:40 MCV 95.4 fl (80-96) 07/21/18 07:40 MCH 33.6 pg (25.7-33.7) 07/21/18 07:40 MCHC 35.2 g/dl (32.0-35.9) 07/21/18 07:40 RDW 14.3 % (11.9-15.9) D 07/21/18 07:40 Plt Count 119 K/MM3 (134-434) L 07/21/18 07:40 MPV 8.8 fl (7.5-11.1) 07/21/18 07:40 Sodium 133 mmol/L (136-145) L 07/21/18 07:40 Potassium 3.1 mmol/L (3.5-5.1) L 07/21/18 07:40 Chloride 92 mmol/L (98-107) L 07/21/18 07:40 Carbon Dioxide 30 mmol/L (21-32) 07/21/18 07:40 Anion Gap 10 MMOL/L (8-16) 07/21/18 07:40 BUN 12 mg/dL (7-18) 07/21/18 07:40 Creatinine 0.8 mg/dL (0.55-1.3) 07/21/18 07:40 Creat Clearance w eGFR 108.77 (>60) 07/21/18 07:40 Random Glucose 105 mg/dL (74-106) 07/21/18 07:40 Calcium 9.0 mg/dL (8.5-10.1) 07/21/18 07:40 Total Bilirubin 2.5 mg/dL (0.2-1) H 07/21/18 07:40 AST 209 U/L (15-37) H 07/21/18 07:40 ALT 213 U/L (13-61) H 07/21/18 07:40 Alkaline Phosphatase 169 U/L (45-117) H 07/21/18 07:40 Total Protein 7.6 g/dl (6.4-8.2) 07/21/18 07:40 Albumin 3.5 g/dl (3.4-5.0) 07/21/18 07:40 RPR Titer Nonreactive (NONREACTIVE) 07/21/18 07:40 Assessment: 07/22/18 09:08 withdrawal symptom Plan: continue detox, k replacement for hypokalemia,repeat cmp,inr,d/c tylenol,on ativan for detox for elavation of liver enzymes
[2018-07-22] MEDS: PRENATAL VITAMINS W/ FOLIC ACID TABLET (FP) PO SCH (10:06)
[2018-07-22] MEDS: amLODIPine BESYLATE 10 MG TABLET (FP) PO SCH (10:06)
[2018-07-22] MEDS: POTASSIUM CHLORIDE TABS 20 MEQ TABLET.ER (FP) PO SCH ×2 (10:06→17:14)
[2018-07-22] MEDS: cloNIDine HCL 0.1 MG TABLET PO SCH ×2 (10:07→22:24)
[2018-07-22 11:45] LABS: ALBUMIN 3.4 g/dl (3.4-5.0); ALK PHOS 153 U/L (45-117); ANION GAP 6 MMOL/L (8-16); BILIRUBIN,TOTAL 1.6 mg/dL (0.2-1); BLOOD UREA NITROGEN 14 mg/dL (7-18); CALCIUM 9.2 mg/dL (8.5-10.1); CHLORIDE 98 mmol/L (98-107); CO2 31 mmol/L (21-32); GLUCOSE,RANDOM 124 mg/dL (74-106); POTASSIUM 4.3 mmol/L (3.5-5.1); SGOT/AST 123 U/L (15-37); SGPT/ALT 162 U/L (13-61); SODIUM 135 mmol/L (136-145); TOT PROT 7.3 g/dl (6.4-8.2)
[2018-07-22 12:01] LABS: INR 1.07 (0.83-1.09); PROTHROMBIN TIME (PATIENT) 12.6 SEC (9.7-13.0)
[2018-07-22] MEDS ORDERED: LORazepam 0.5 MG TABLET PO PRN (12:25)
[2018-07-22] MEDS ORDERED: chlordiazePOXIDE HCL 10 MG CAPSULE PO SCH (17:00)
[2018-07-22] MEDS ORDERED: chlordiazePOXIDE HCL 10 MG CAPSULE PO PRN (17:00)
[2018-07-22] MEDS: THIAMINE HCL 100 MG TABLET (FP) PO SCH (22:24)
[2018-07-23] MEDS: LORazepam 0.5 MG TABLET PO SCH ×4 (06:00→22:12)
[2018-07-23] MEDS: METHADONE HCL 40 MG DISPERSABLE TABLET PO SCH (06:00)
[2018-07-23] MEDS: PRENATAL VITAMINS W/ FOLIC ACID TABLET (FP) PO SCH (10:52)
[2018-07-23] MEDS: cloNIDine HCL 0.1 MG TABLET PO SCH ×2 (10:52→22:11)
[2018-07-23] MEDS: amLODIPine BESYLATE 10 MG TABLET (FP) PO SCH (10:52)
[2018-07-23] MEDS: POTASSIUM CHLORIDE TABS 20 MEQ TABLET.ER (FP) PO SCH ×2 (10:52→18:35)
--- NOTE | 2018-07-23 11:12 | PN ---
[facility] Progress Note (SOAP) Subjective: pt states he still feels a bit shaky- was using 1L if vodka a day. Would like to go to rehab O: Vital Signs - 24 hr 07/22/18 07/22/18 07/22/18 14:12 17:19 21:33 Temperature 98.1 F 97.8 F 97.5 F L Pulse Rate 91 H 114 H 96 H Respiratory 18 20 20 Rate Blood Pressure 143/92 128/98 136/89 07/23/18 07/23/18 07:19 09:30 Temperature 98.1 F 97.1 F L Pulse Rate 72 88 Respiratory 20 16 Rate Blood Pressure 150/96 127/81 Laboratory Tests 07/21/18 07/21/18 07/21/18 07:40 07:40 07:40 WBC 5.0 RBC 5.02 Hgb 16.9 Hct 47.9 MCV 95.4 MCH 33.6 MCHC 35.2 RDW 14.3 D Plt Count 119 L MPV 8.8 PT with INR INR Sodium 133 L Potassium 3.1 L Chloride 92 L Carbon Dioxide 30 Anion Gap 10 BUN 12 Creatinine 0.8 Creat Clearance w eGFR 108.77 Random Glucose 105 Calcium 9.0 Total Bilirubin 2.5 H AST 209 H ALT 213 H Alkaline Phosphatase 169 H Total Protein 7.6 Albumin 3.5 RPR Titer Nonreactive 07/22/18 07/22/18 10:10 10:10 WBC RBC Hgb Hct MCV MCH MCHC RDW Plt Count MPV PT with INR 12.60 INR 1.07 Sodium 135 L Potassium 4.3 Chloride 98 Carbon Dioxide 31 Anion Gap 6 L BUN 14 Creatinine 1.0 Creat Clearance w eGFR 84.08 Random Glucose 124 H Calcium 9.2 Total Bilirubin 1.6 H AST 123 H ALT 162 H Alkaline Phosphatase 153 H Total Protein 7.3 Albumin 3.4 RPR Titer nl VS increased liver enzmes a/p: continue detox, pt has prn meds for alcohol withdrawal sx with liver injury- increased LFT's, f/u PCP continue MAT methadone
[2018-07-23 12:17] LABS: ALBUMIN 3.2 g/dl (3.4-5.0); BILIRUBIN,DIRECT 0.5 mg/dL (0.0-0.2); BILIRUBIN,TOTAL 0.9 mg/dL (0.2-1); TOT PROT 7.1 g/dl (6.4-8.2)
[2018-07-23] MEDS ORDERED: LORazepam 0.5 MG TABLET PO ONE (14:45)
[2018-07-23] MEDS ORDERED: chlordiazePOXIDE HCL 10 MG CAPSULE PO SCH (17:00)
[2018-07-23] MEDS: MELATONIN 5 MG TABLETS PO PRN (22:12)
[2018-07-23] MEDS: THIAMINE HCL 100 MG TABLET (FP) PO SCH (22:12)
[2018-07-24] MEDS: METHADONE HCL 40 MG DISPERSABLE TABLET PO SCH (05:11)
[2018-07-24] MEDS: LORazepam 0.5 MG TABLET PO SCH ×2 (05:11→05:13)
--- NOTE | 2018-07-24 09:01 | PN ---
[facility] Progress Note (SOAP) Subjective: alert,no complaint Objective: 07/24/18 08:58 Vital Signs Temperature 98.1 F 07/24/18 06:33 Pulse Rate 100 H 07/24/18 07:39 Respiratory Rate 18 07/24/18 07:39 Blood Pressure 136/88 07/24/18 07:39 O2 Sat by Pulse Oximetry (%)
--- NOTE | 2018-07-24 09:08 | DS ---
[facility] Detox Discharge Summary Admission Date: 07/20/18 Discharge Date: 07/24/18 - History Present History: Alcohol Dependence Additional Comments: patient decined refer,will follow up with mmtp clinic Pertinent Past History: alcohol related seizure positive ppd syncope mmtp - Physical Exam Results Vital Signs: Vital Signs Temperature 98.1 F 07/24/18 06:33 Pulse Rate 100 H 07/24/18 07:39 Respiratory Rate 18 07/24/18 07:39 Blood Pressure 136/88 07/24/18 07:39 O2 Sat by Pulse Oximetry (%) Pertinent Admission Physical Exam Findings: withdrawal signs and symptom - Treatment Hospital Course: Detox Protocol Followed, Detoxed Safely, Responded well, Discharged Condition Good Patient has Accepted a Rehab Referral to: declined - Medication Discharge Medications: Ambulatory Orders Methadone [Dolophine -] 120 mg PO DAILY 07/20/18 - Diagnosis (1) Alcohol dependence with uncomplicated withdrawal Current Visit: No Status: Chronic (2) Alcohol dependence with uncomplicated intoxication Current Visit: No Status: Acute (3) Syncope Current Visit: No Status: Acute Qualifiers: Syncope type: unspecified Qualified Code(s): R55 - Syncope and collapse (4) Positive PPD Current Visit: No Status: Chronic (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
--- NOTE | 2018-07-24 09:19 | DS ---
[facility] Detox Discharge Summary Admission Date: 07/20/18 Discharge Date: 07/24/18 - History Present History: Alcohol Dependence Additional Comments: patient declined refer,follow up with mmtp clinic Pertinent Past History: mmtp alcohol related seizure syncope hypokalemia hypertension abnomal liver enzyme - Physical Exam Results Vital Signs: Vital Signs Temperature 98.1 F 07/24/18 06:33 Pulse Rate 100 H 07/24/18 07:39 Respiratory Rate 18 07/24/18 07:39 Blood Pressure 136/88 07/24/18 07:39 O2 Sat by Pulse Oximetry (%) Pertinent Admission Physical Exam Findings: withdrawal symptom Vital Signs Temperature 98.1 F 07/24/18 06:33 Pulse Rate 100 H 07/24/18 07:39 Respiratory Rate 18 07/24/18 07:39 Blood Pressure 136/88 07/24/18 07:39 O2 Sat by Pulse Oximetry (%) Laboratory Last Values WBC 5.0 K/mm3 (4.0-10.0) 07/21/18 07:40 RBC 5.02 M/mm3 (4.00-5.60) 07/21/18 07:40 Hgb 16.9 GM/dL (11.7-16.9) 07/21/18 07:40 Hct 47.9 % (35.4-49) 07/21/18 07:40 MCV 95.4 fl (80-96) 07/21/18 07:40 MCH 33.6 pg (25.7-33.7) 07/21/18 07:40 MCHC 35.2 g/dl (32.0-35.9) 07/21/18 07:40 RDW 14.3 % (11.9-15.9) D 07/21/18 07:40 Plt Count 119 K/MM3 (134-434) L 07/21/18 07:40 MPV 8.8 fl (7.5-11.1) 07/21/18 07:40 PT with INR 12.60 SEC (9.7-13.0) 07/22/18 10:10 INR 1.07 (0.83-1.09) 07/22/18 10:10 Sodium 135 mmol/L (136-145) L 07/22/18 10:10 Potassium 3.9 mmol/L (3.5-5.1) 07/23/18 07:45 Chloride 98 mmol/L (98-107) 07/22/18 10:10 Carbon Dioxide 31 mmol/L (21-32) 07/22/18 10:10 Anion Gap 6 MMOL/L (8-16) L 07/22/18 10:10 BUN 14 mg/dL (7-18) 07/22/18 10:10 Creatinine 1.0 mg/dL (0.55-1.3) 07/22/18 10:10 Creat Clearance w eGFR 84.08 (>60) 07/22/18 10:10 Random Glucose 124 mg/dL (74-106) H 07/22/18 10:10 Calcium 9.2 mg/dL (8.5-10.1) 07/22/18 10:10 Total Bilirubin 0.9 mg/dL (0.2-1) 07/23/18 07:45 Direct Bilirubin 0.5 mg/dL (0.0-0.2) H 07/23/18 07:45 AST 109 U/L (15-37) H 07/23/18 07:45 ALT 148 U/L (13-61) H 07/23/18 07:45 Alkaline Phosphatase 143 U/L (45-117) H 07/23/18 07:45 Total Protein 7.1 g/dl (6.4-8.2) 07/23/18 07:45 Albumin 3.2 g/dl (3.4-5.0) L 07/23/18 07:45 RPR Titer Nonreactive (NONREACTIVE) 07/21/18 07:40 - Treatment Hospital Course: Detox Protocol Followed, Detoxed Safely, Responded well, Discharged Condition Good Patient has Accepted a Rehab Referral to: declined - Medication Discharge Medications: Ambulatory Orders Methadone [Dolophine -] 120 mg PO DAILY 07/20/18 - Diagnosis (1) Alcohol dependence with uncomplicated withdrawal Current Visit: No Status: Chronic (2) Alcohol dependence with uncomplicated intoxication Current Visit: No Status: Acute (3) Syncope Current Visit: No Status: Acute Qualifiers: Syncope type: unspecified Qualified Code(s): R55 - Syncope and collapse (4) Positive PPD Current Visit: No Status: Chronic (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
[2018-07-24 09:52] VITALS: BP 148/85; PULSE 118; TEMP 97.7
[2018-07-24] MEDS: cloNIDine HCL 0.1 MG TABLET PO SCH (10:24)
[2018-07-24] MEDS: POTASSIUM CHLORIDE TABS 20 MEQ TABLET.ER (FP) PO SCH (10:24)
[2018-07-24] MEDS: amLODIPine BESYLATE 10 MG TABLET (FP) PO SCH (10:24)
== END 2018-07-24 10:25 | disposition home or self-care (01) | DRG 773 ==
LOC: YASAS 09:01 → Y6N 13:01
PROVIDERS: ADMIT Surgery; ATTEND Surgery
PROC: HZ2ZZZZ Detoxification Services for Substance Abuse Treatment (ICD-10-PCS; principal; 2018-07-20)
DX: F10.230 Alcohol dependence with withdrawal, uncomplicated (principal); F11.20 Opioid dependence, uncomplicated; I10 Essential (primary) hypertension; E87.6 Hypokalemia; E80.6 Other disorders of bilirubin metabolism; R55 Syncope and collapse; R94.8 Abnormal results of function studies of other organs and systems; Z86.69 Personal history of other diseases of the nervous system and sense organs
CPT/HCPCS: 36415; 80053; 80076; 84132; 85027; 85610; 86593; J0735

== ENCOUNTER 2018-09-04 21:26 | Inpatient (IN) | payer OTHER ==
[2018-09-04 22:57] VITALS: BMI 31.1
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
[2018-09-04] MEDS ORDERED: MAG HYDROX/AL HYDROX/SIMETH 30 ML UNIT-DOSE CUP PO PRN (23:32)
[2018-09-04] MEDS ORDERED: MAGNESIUM HYDROX 2400MG/30ML ORAL SUSPENSION 30 ML CUP PO PRN (23:32)
[2018-09-04] MEDS ORDERED: MAGNESIUM CITRATE 300 ML BOTTLE PO PRN (23:32)
[2018-09-04] MEDS ORDERED: IBUPROFEN 400 MG TABLET (FP) PO PRN (23:32)
[2018-09-04] MEDS ORDERED: METHOCARBAMOL 500 MG TABLET PO PRN (23:32)
[2018-09-04] MEDS ORDERED: ACETAMINOPHEN 325 MG TABLET (FP) PO PRN ×2 (23:32)
[2018-09-04] MEDS ORDERED: NICOTINE POLACRILEX 2 MG GUM BUC PRN (23:32)
[2018-09-04] MEDS ORDERED: chlordiazePOXIDE HCL 25 MG CAPSULE PO PRN (23:32)
[2018-09-04] MEDS ORDERED: MENTHOL/PHENOL 1 EACH UD MM PRN (23:32)
[2018-09-04] MEDS ORDERED: BISMUTH SUBSALICYLATE 524 MG/30 ML UD PO PRN (23:32)
[2018-09-05] MEDS: MELATONIN 5 MG TABLETS PO PRN ×2 (00:19→22:04)
[2018-09-05] MEDS: chlordiazePOXIDE HCL 25 MG CAPSULE PO SCH ×2 (00:21→05:54)
[2018-09-05] MEDS ORDERED: ONDANSETRON *ODT* 4 MG TABLET SL PRN (08:47)
[2018-09-05] MEDS ORDERED: METHADONE HCL 40 MG DISPERSABLE TABLET PO ONE ×2 (08:48→15:13)
[2018-09-05] MEDS: METHADONE HCL 40 MG DISPERSABLE TABLET PO SCH (09:12)
[2018-09-05] MEDS ORDERED: TRIMETHOBENZAMIDE HCL 200MG/2ML INJ IM PRN (09:30)
--- NOTE | 2018-09-05 10:15 | PN ---
[facility] CIWA - CIWA Score Nausea/Vomitin-Cont. Nausea/Vomiting Muscle Tremors: 4-Moderate,w/Arms Extend Anxiety: 4-Mod. Anxious/Guarded Agitation: 4-Moderately Restless Paroxysmal Sweats: 3 Orientation: 0-Oriented Tacttile Disturbances: 0-None Auditory Disturbances: 0-None Visual Disturbances: 0-None Headache: 0-None Present CIWA-Ar Total Score: 22 S COWS - Scale Resting Pulse: 1= [place] 81-100 Sweatin= Chills/Flushing Restless Observation: 3= Extraneous Movement Pupil Size: 1= Pupils >than Normal Bone or Joint Aches: 2= Severe Diffuse Aches Runny Nose/ Eye Tearin= Nasal Congestion GI Upset > 30mins: 3= Vomiting/Diarrhea Tremor Observation of Outstretched Hands: 2= Slight Tremor Visible Yawning Observation: 0= None Anxiety or Irritability: 2=Irritable/Anxious Goose Flesh Skin: 3=Piloerection COWS Score: 19 [facility] Progress Note (SOAP) Subjective: pt with nausea and vomiting- given Zofran po> vomited this> given Tigan IM> dry heaves. Pt with high CIWA and COWs score- pt alert and oriented- no evidence of impending DT's O: PE abd soft, NT, protuberant alert and oriented, ambulatory Vital Signs - 24 hr 09/04/18 09/05/18 09/05/18 22:52 00:11 00:51 Temperature 97.7 F 97.4 F L Pulse Rate 105 H 116 H 116 H Respiratory 18 20 18 Rate Blood Pressure 147/108 H 146/92 09/05/18 09/05/18 09/05/18 01:00 01:30 02:00 Temperature Pulse Rate 118 H 118 H 121 H Respiratory 20 20 20 Rate Blood Pressure 09/05/18 09/05/18 09/05/18 02:30 03:00 03:30 Temperature Pulse Rate 120 H 120 H 98 H Respiratory 20 20 20 Rate Blood Pressure 09/05/18 09/05/18 09/05/18 04:00 04:30 05:00 Temperature Pulse Rate 98 H 98 H 96 H Respiratory 18 18 18 Rate Blood Pressure 09/05/18 09/05/18 09/05/18 05:30 06:00 06:30 Temperature Pulse Rate 92 H 90 88 Respiratory 18 18 18 Rate Blood Pressure 09/05/18 09/05/18 09/05/18 06:43 07:00 07:30 Temperature 97.1 F L Pulse Rate 87 87 90 Respiratory 18 18 18 Rate Blood Pressure 154/91 09/05/18 09/05/18 09/05/18 08:00 08:30 09:17 Temperature 97.0 F L Pulse Rate 94 H 101 H 97 H Respiratory 18 18 Rate Blood Pressure 165/105 H Laboratory Tests 09/05/18 09/05/18 07:00 07:00 WBC 3.7 L RBC 5.08 Hgb 16.5 Hct 49.8 H MCV 97.9 H MCH 32.4 MCHC 33.1 RDW 13.1 Plt Count 114 L MPV 8.7 Sodium 134 L Potassium 3.0 L Chloride 93 L Carbon Dioxide 31 Anion Gap 11 BUN 10 Creatinine 0.6 Creat Clearance w eGFR 151.60 Random Glucose 102 Calcium 8.4 L Total Bilirubin 1.4 H AST 271 H ALT 188 H Alkaline Phosphatase 143 H Total Protein 7.9 Albumin 3.4 increased liver enzymes- pt with alcohol use disorder low potassium high Hct a/p: Pt with high CIWA and COW's score: will start MAT methadone- dose confirmed h/o heavy alcohol use Change librium to Ativan given high liver enzymes potassium replacement increased po intake Pt still with vomiting> will send to ER for fluid replacement and K replacement - d/w Dr. Marrufo
[2018-09-05 10:17] LABS: HEMATOCRIT 49.8 % (35.4-49); HEMOGLOBIN 16.5 GM/dL (11.7-16.9); MCH 32.4 pg (25.7-33.7); MCHC 33.1 g/dl (32.0-35.9); MEAN CELL VOLUME 97.9 fl (80-96); MEAN PLT VOLUME 8.7 fl (7.5-11.1); PLATELET COUNT 114 K/MM3 (134-434); RBC 5.08 M/mm3 (4.00-5.60); RDW 13.1 % (11.9-15.9); WHITE BLOOD COUNT 3.7 K/mm3 (4.0-10.0)
[2018-09-05 10:21] LABS: ALBUMIN 3.4 g/dl (3.4-5.0); ALK PHOS 143 U/L (45-117); ANION GAP 11 MMOL/L (8-16); BILIRUBIN,TOTAL 1.4 mg/dL (0.2-1); BLOOD UREA NITROGEN 10 mg/dL (7-18); CALCIUM 8.4 mg/dL (8.5-10.1); CHLORIDE 93 mmol/L (98-107); CO2 31 mmol/L (21-32); CREATININE 0.6 mg/dL (0.55-1.3); GLUCOSE,RANDOM 102 mg/dL (74-106); SGOT/AST 271 U/L (15-37); SGPT/ALT 188 U/L (13-61); SODIUM 134 mmol/L (136-145); TOT PROT 7.9 g/dl (6.4-8.2)
[2018-09-05] MEDS: NICOTINE 14 MG/24 HOURS TOPICAL PATCH TD SCH (10:45)
[2018-09-05] MEDS: LORazepam 2 MG TABLET PO SCH ×3 (10:51→22:04)
[2018-09-05] MEDS: PRENATAL VITAMINS W/ FOLIC ACID TABLET (FP) PO SCH (10:51)
[2018-09-05] MEDS: amLODIPine BESYLATE 10 MG TABLET (FP) PO SCH (10:51)
--- NOTE | 2018-09-05 10:58 | EKG ---
Test Reason : Blood Pressure : / mmHG Vent. Rate : 093 BPM Atrial Rate : 093 BPM P-R Int : 142 ms QRS Dur : 086 ms QT Int : 432 ms P-R-T Axes : 057 055 -20 degrees QTc Int : 537 ms NORMAL SINUS RHYTHM RIGHT ATRIAL ENLARGEMENT T WAVE ABNORMALITY, CONSIDER ANTEROLATERAL ISCHEMIA PROLONGED QT ABNORMAL ECG Confirmed by ZHANNA GRANT MD ([id number]) on 09/05/2018 10:58:22 AM Referred By: J LUIS ARREOLA Confirmed By:ZHANNA GRANT MD
[2018-09-05] MEDS ORDERED: amLODIPine BESYLATE 10 MG TABLET (FP) PO ONE (15:14)
[2018-09-05] MEDS ORDERED: LORazepam 2 MG TABLET PO ONE (15:15)
[2018-09-05] MEDS ORDERED: cloNIDine HCL 0.1 MG TABLET PO ONE (21:41)
[2018-09-05] MEDS: hydrOXYzine PAMOATE 25 MG CAPSULE (FP) PO PRN (22:04)
[2018-09-05] MEDS: THIAMINE HCL 100 MG TABLET (FP) PO SCH (22:05)
[2018-09-05] MEDS ORDERED: chlordiazePOXIDE HCL 25 MG CAPSULE PO SCH (23:00)
[2018-09-06] MEDS: LORazepam 2 MG TABLET PO SCH (05:19)
[2018-09-06] MEDS: METHADONE HCL 40 MG DISPERSABLE TABLET PO SCH (07:27)
[2018-09-06] MEDS: NICOTINE 14 MG/24 HOURS TOPICAL PATCH TD SCH (10:10)
[2018-09-06] MEDS: amLODIPine BESYLATE 10 MG TABLET (FP) PO SCH (10:10)
[2018-09-06] MEDS: PRENATAL VITAMINS W/ FOLIC ACID TABLET (FP) PO SCH (10:10)
[2018-09-06] MEDS: LORazepam 1 MG TABLET PO SCH ×3 (10:10→22:15)
[2018-09-06] MEDS: LORazepam 1 MG TABLET PO PRN ×2 (14:06→19:26)
--- NOTE | 2018-09-06 14:36 | PN ---
[facility] CIWA - CIWA Score Nausea/Vomitin-No Nausea/No Vomiting Muscle Tremors: 4-Moderate,w/Arms Extend Anxiety: 4-Mod. Anxious/Guarded Agitation: 4-Moderately Restless Paroxysmal Sweats: 1-Minimal Palms Moist Orientation: 0-Oriented Tacttile Disturbances: 0-None Auditory Disturbances: 0-None Visual Disturbances: 0-None Headache: 0-None Present CIWA-Ar Total Score: 13 S COWS - Scale Resting Pulse: 2= [place] 101-120 Sweatin= Chills/Flushing Restless Observation: 0= Sits Still Pupil Size: 0= Normal to Room Light Bone or Joint Aches: 2= Severe Diffuse Aches Runny Nose/ Eye Tearin= Runny Nose/Eyes GI Upset > 30mins: 1= Stomach Cramp Tremor Observation of Outstretched Hands: 1= Tremor Alloy, Not Seen Yawning Observation: 0= None Anxiety or Irritability: 2=Irritable/Anxious Goose Flesh Skin: 0=Smooth Skin COWS Score: 11 [facility] Progress Note (SOAP) Subjective: PT C/O NASAL CONGESTION/RUNNY NOSE, TREMORS, ANXIETY, IRRITABILITY, INTERMITTENT SLEEP. Objective: 09/06/18 14:35 Vital Signs 09/06/18 09/06/18 09:33 13:26 Temperature 97.3 F L 97.4 F L Pulse Rate 96 H 103 H Respiratory 20 20 Rate Blood Pressure 151/100 147/105 H Laboratory Tests 09/05/18 09/05/18 09/05/18 07:00 07:00 07:00 WBC 3.7 L RBC 5.08 Hgb 16.5 Hct 49.8 H MCV 97.9 H MCH 32.4 MCHC 33.1 RDW 13.1 Plt Count 114 L MPV 8.7 Sodium 134 L Potassium 3.0 L Chloride 93 L Carbon Dioxide 31 Anion Gap 11 BUN 10 Creatinine 0.6 Creat Clearance w eGFR 151.60 Random Glucose 102 Calcium 8.4 L Total Bilirubin 1.4 H AST 271 H ALT 188 H Alkaline Phosphatase 143 H Total Protein 7.9 Albumin 3.4 RPR Titer Nonreactive Assessment: 09/06/18 14:35 WITHDRAWAL SX MMTP HX HTN HX ABNORMAL LABS OBESITY Plan: CONTINUE DETOX REPEAT CBC AND CMP ON 09/08/18 SALINE NASAL SPRAY DIRECTED CLONIDINE 0.1 MG PO BID PRN
[2018-09-06] MEDS ORDERED: SODIUM CHLORIDE NASAL SPRAY 44 ML BOTTLE NS PRN (15:10)
[2018-09-06] MEDS: hydrOXYzine PAMOATE 25 MG CAPSULE (FP) PO PRN (17:17)
[2018-09-06] MEDS: cloNIDine HCL 0.1 MG TABLET PO PRN (19:26)
[2018-09-06] MEDS: THIAMINE HCL 100 MG TABLET (FP) PO SCH (22:16)
[2018-09-06] MEDS ORDERED: chlordiazePOXIDE HCL 10 MG CAPSULE PO SCH (23:00)
[2018-09-06] MEDS ORDERED: chlordiazePOXIDE HCL 10 MG CAPSULE PO PRN (23:00)
[2018-09-07] MEDS: METHADONE HCL 40 MG DISPERSABLE TABLET PO SCH (05:17)
[2018-09-07] MEDS: LORazepam 1 MG TABLET PO SCH (05:18)
[2018-09-07] MEDS: amLODIPine BESYLATE 10 MG TABLET (FP) PO SCH (10:20)
[2018-09-07] MEDS: cloNIDine HCL 0.1 MG TABLET PO PRN (10:20)
[2018-09-07] MEDS: LORazepam 0.5 MG TABLET PO SCH ×3 (10:20→21:59)
[2018-09-07] MEDS: NICOTINE 14 MG/24 HOURS TOPICAL PATCH TD SCH (10:20)
[2018-09-07] MEDS: PRENATAL VITAMINS W/ FOLIC ACID TABLET (FP) PO SCH (10:20)
[2018-09-07] MEDS ORDERED: LORazepam 0.5 MG TABLET PO PRN (11:00)
--- NOTE | 2018-09-07 14:28 | PN ---
[facility] CIWA - CIWA Score Nausea/Vomitin-Mild Nausea/No Vomiting Muscle Tremors: 2 Anxiety: 1-Mildly Anxious Agitation: 2 Paroxysmal Sweats: 1-Minimal Palms Moist Orientation: 1-Uncertain about Date Tacttile Disturbances: 0-None Auditory Disturbances: 0-None Visual Disturbances: 0-None Headache: 1-Very Mild CIWA-Ar Total Score: 9 S Progress Note (SOAP) Subjective: no sigs of dehydration able to tolerate food and fluid well alert no acute distress ambulate steady gait Objective: 09/07/18 14:26 Vital Signs Temperature 96.7 F L 09/07/18 13:34 Pulse Rate 109 H 09/07/18 13:34 Respiratory Rate 20 09/07/18 13:34 Blood Pressure 122/93 09/07/18 13:34 O2 Sat by Pulse Oximetry (%) Laboratory Last Values WBC 3.7 K/mm3 (4.0-10.0) L 09/05/18 07:00 RBC 5.08 M/mm3 (4.00-5.60) 09/05/18 07:00 Hgb 16.5 GM/dL (11.7-16.9) 09/05/18 07:00 Hct 49.8 % (35.4-49) H 09/05/18 07:00 MCV 97.9 fl (80-96) H 09/05/18 07:00 MCH 32.4 pg (25.7-33.7) 09/05/18 07:00 MCHC 33.1 g/dl (32.0-35.9) 09/05/18 07:00 RDW 13.1 % (11.9-15.9) 09/05/18 07:00 Plt Count 114 K/MM3 (134-434) L 09/05/18 07:00 MPV 8.7 fl (7.5-11.1) 09/05/18 07:00 Sodium 134 mmol/L (136-145) L 09/05/18 07:00 Potassium 3.0 mmol/L (3.5-5.1) L 09/05/18 07:00 Chloride 93 mmol/L (98-107) L 09/05/18 07:00 Carbon Dioxide 31 mmol/L (21-32) 09/05/18 07:00 Anion Gap 11 MMOL/L (8-16) 09/05/18 07:00 BUN 10 mg/dL (7-18) 09/05/18 07:00 Creatinine 0.6 mg/dL (0.55-1.3) 09/05/18 07:00 Creat Clearance w eGFR 151.60 (>60) 09/05/18 07:00 Random Glucose 102 mg/dL (74-106) 09/05/18 07:00 Calcium 8.4 mg/dL (8.5-10.1) L 09/05/18 07:00 Total Bilirubin 1.4 mg/dL (0.2-1) H 09/05/18 07:00 AST 271 U/L (15-37) H 09/05/18 07:00 ALT 188 U/L (13-61) H 09/05/18 07:00 Alkaline Phosphatase 143 U/L (45-117) H 09/05/18 07:00 Total Protein 7.9 g/dl (6.4-8.2) 09/05/18 07:00 Albumin 3.4 g/dl (3.4-5.0) 09/05/18 07:00 RPR Titer Nonreactive (NONREACTIVE) 09/05/18 07:00 lab noted K+ low 09/07/18 14:27 Assessment: 09/07/18 14:30 alcohol withdrawal sx low K+ Plan: continue detox K+ supplement repeat K+
[2018-09-07] MEDS ORDERED: POTASSIUM CHLORIDE ORAL LIQUID 20 MEQ/15 ML PO SCH (15:00)
[2018-09-07] MEDS: MELATONIN 5 MG TABLETS PO PRN (21:59)
[2018-09-07] MEDS: THIAMINE HCL 100 MG TABLET (FP) PO SCH (21:59)
[2018-09-07 22:34] VITALS: TEMP 97.1
[2018-09-07] MEDS ORDERED: chlordiazePOXIDE HCL 10 MG CAPSULE PO SCH (23:00)
[2018-09-08] MEDS: LORazepam 0.5 MG TABLET PO SCH (05:47)
[2018-09-08] MEDS: METHADONE HCL 40 MG DISPERSABLE TABLET PO SCH (05:47)
[2018-09-08 06:20] VITALS: BP 138/106; PULSE 100
== END 2018-09-08 07:22 | disposition home or self-care (01) | DRG 773 ==
LOC: YASAS 21:26 → Y3N 23:44
PROVIDERS: ADMIT Surgery; ATTEND Surgery
PROC: HZ2ZZZZ Detoxification Services for Substance Abuse Treatment (ICD-10-PCS; principal; 2018-09-04)
DX: F10.230 Alcohol dependence with withdrawal, uncomplicated (principal); F10.220 Alcohol dependence with intoxication, uncomplicated; F11.20 Opioid dependence, uncomplicated; F17.213 Nicotine dependence, cigarettes, with withdrawal; F41.8 Other specified anxiety disorders; F32.9 Major depressive disorder, single episode, unspecified; E87.6 Hypokalemia; R94.5 Abnormal results of liver function studies; R03.0 Elevated blood-pressure reading, without diagnosis of hypertension; G40.509 Epileptic seizures related to external causes, not intractable, without status epilepticus; R76.11 Nonspecific reaction to tuberculin skin test without active tuberculosis
CPT/HCPCS: 36415; 80053; 85027; 86593; 93005; 93010; J0735; Q0162

== ENCOUNTER 2018-09-05 11:16 | Emergency (ER) | payer OTHER ==
[2018-09-05] MEDS ORDERED: SODIUM CHLORIDE 1,000 ML IV STA (11:31)
[2018-09-05] MEDS ORDERED: LORazepam 2 MG/ML SDV VIAL ONE (11:49)
[2018-09-05 12:00] LABS: BASO % 1.1 % (0-2.0); EOS % 0.1 % (0-4.5); HEMATOCRIT 49.6 % (35.4-49); LYMPH % 10.2 % (8-40); MCH 32.6 pg (25.7-33.7); MCHC 34.2 g/dl (32.0-35.9); MEAN CELL VOLUME 95.4 fl (80-96); MEAN PLT VOLUME 8.6 fl (7.5-11.1); MONO % 8.4 % (3.8-10.2); NEUT % 80.2 % (42.8-82.8); PLATELET COUNT 130 K/MM3 (134-434); RDW 13.3 % (11.9-15.9); WHITE BLOOD COUNT 4.8 K/mm3 (4.0-10.0)
[2018-09-05] MEDS ORDERED: CLOPIDOGREL BISULFATE 75 MG TABLET (FP) ONE (12:11)
[2018-09-05 12:20] VITALS: BMI 29.8
[2018-09-05 12:22] LABS: ALBUMIN 3.7 g/dl (3.4-5.0); ALK PHOS 149 U/L (45-117); ANION GAP 10 MMOL/L (8-16); BILIRUBIN,TOTAL 1.7 mg/dL (0.2-1); BLOOD UREA NITROGEN 10 mg/dL (7-18); CHLORIDE 94 mmol/L (98-107); CO2 31 mmol/L (21-32); CREATININE 0.7 mg/dL (0.55-1.3); GLUCOSE,RANDOM 123 mg/dL (74-106); LIPASE 321 U/L (73-393); MAGNESIUM 1.9 mg/dL (1.8-2.4); SGOT/AST 315 U/L (15-37); SGPT/ALT 211 U/L (13-61); SODIUM 135 mmol/L (136-145); TOT PROT 8.6 g/dl (6.4-8.2)
[2018-09-05] MEDS ORDERED: chlordiazePOXIDE HCL 25 MG CAPSULE PO ONE (12:49)
[2018-09-05] MEDS ORDERED: chlordiazePOXIDE HCL 25 MG CAPSULE ONE (13:15)
--- NOTE | 2018-09-05 13:30 | PDOC ---
History of Present Illness - General Chief Complaint: Alcohol intoxication Stated Complaint: INTOX Time Seen by Provider: 09/05/18 11:23 History Source: Patient, Apple Packing Header Used Exam Limitations: Language Barrier - History of Present Illness Initial Comments: 09/05/18 13:08 Pt is a 37yo M with PMH of Alcohol Use BIBA from Detox for vomiting, withdrawal and hypokalemia. Pt drank 1pt before going to detox yesterday. Pt is endorsing nausea but denies headache, sob, chest pain, tremors, abdominal pain, diarrhea, hematemesis, syncope, cough, fevers, chills. Per detox, pt K was found to be low and was sent here for hydration and potassium repletion. PMD: none PMH: see hpi PSH: none Meds: see med rec Allergies: nkda Past History - Past Medical History Allergies/Adverse Reactions: Allergies Allergy/AdvReac Type Severity Reaction Status Date / Time No Known Allergies Allergy Verified 09/04/18 22:53 Home Medications: Ambulatory Orders Methadone [Dolophine -] 120 mg PO DAILY 07/20/18 Amlodipine Besylate [Norvasc -] 10 mg PO DAILY #30 tablet 07/24/18 Anemia: No Asthma: No Cancer: No Cardiac Disorders: No CVA: No COPD: No CHF: No Dementia: No Diabetes: No GI Disorders: No Disorders: No HTN: No Hypercholesterolemia: No Kidney Stones: No Liver Disease: No Seizures: Yes (DUE TO ALCOHOL) Thyroid Disease: No Other medical history: ALCOHOL & SUBSTANCE ABUSE, DEPRESSION/ANXIETY - Surgical History Abdominal Surgery: No Appendectomy: No Cardiac Surgery: No Cholecystectomy: No Lung Surgery: No Neurologic Surgery: No Orthopedic Surgery: Yes (right index finger trauma at age 4) - Reproductive History Testicular Surgery: No - Immunization History Immunization Up to Date: No - Suicide/Smoking/Psychosocial Hx Smoking History: Current every day smoker Have you smoked in the past 12 months: Yes Number of Cigarettes Smoked Daily: 2 Cigars Per Day: 0 Information on smoking cessation initiated: No 'Breaking Loose' booklet given: 09/04/18 Hx Alcohol Use: Yes Drug/Substance Use Hx: Yes Substance Use Type: Alcohol, Heroin, Opiates Hx Substance Use Treatment: Yes Review of Systems - Review of Systems Constitutional: Yes: Weakness. No: Chills, Fever HEENTM: No: Symptoms Reported Respiratory: No: Symptoms reported Cardiac (ROS): No: Symptoms Reported ABD/GI: Yes: Nausea, Vomiting. No: Constipated, Diarrhea, Abdominal cramping : No: Symptoms Reported Musculoskeletal: No: Symptoms Reported Integumentary: No: Symptoms Reported Neurological: Yes: Tremors. No: Headache, Numbness, Paresthesia, Seizure *Physical Exam - Vital Signs Last Vital Signs Temp Pulse Resp BP Pulse Ox 97.8 F 97 H 16 164/104 H 94 L 09/05/18 11:26 09/05/18 11:26 09/05/18 11:09/05/18 11:09/05/18 11:26 - Physical Exam General Appearance: Yes: Nourished, Appropriately Dressed. No: Apparent Distress HEENT: positive: EOMI, MELVI, Normal ENT Inspection, Other (tongue fasiculations) Neck: positive: Trachea midline, Supple. negative: Lymphadenopathy (R), Lymphadenopathy (L) Respiratory/Chest: positive: Lungs Clear, Normal Breath Sounds Cardiovascular: positive: Regular Rhythm, Regular Rate, S1, S2. negative: Edema , JVD, Murmur Vascular Pulses: Carotid (R): 2+, Carotid (L): 2+, Dorsalis-Pedis (R): 2+, Doralis-Pedis (L): 2+ Gastrointestinal/Abdominal: positive: Normal Bowel Sounds, Soft. negative: Tender Musculoskeletal: negative: CVA Tenderness Extremity: positive: Normal Capillary Refill. negative: Pedal Edema, Swelling Integumentary: positive: Normal Color, Dry, Warm Neurologic: positive: manager of organizational development II-XII NML intact, Fully Oriented, Alert, Normal Mood/ Affect, Normal Response, Motor Strength 5/5 ED Treatment Course - LABORATORY CBC & Chemistry Diagram: 09/05/18 11:47 09/05/18 11:36 - ADDITIONAL ORDERS Additional order review: Laboratory Results 09/05/18 11:36 Sodium 135 L Potassium 4.0 Chloride 94 L Carbon Dioxide 31 Anion Gap 10 BUN 10 Creatinine 0.7 Creat Clearance w eGFR 126.90 Random Glucose 123 H Calcium 9.0 Magnesium 1.9 Total Bilirubin 1.7 H AST 315 H ALT 211 H Alkaline Phosphatase 149 H Total Protein 8.6 H Albumin 3.7 Lipase 321 09/05/18 11:47 RBC 5.20 MCV 95.4 MCHC 34.2 RDW 13.3 MPV 8.6 Neutrophils % 80.2 Lymphocytes % 10.2 Monocytes % 8.4 Eosinophils % 0.1 Basophils % 1.1 - Medications Given in the ED: ED Medications Discontinued Medications Generic Name Dose Route Start Last Admin Trade Name Arturo PRN Reason Stop Dose Admin Sodium Chloride 1,000 mls @ 1,000 mls/hr 09/05/18 11:31 09/05/18 11:37 Normal Saline - IV 09/05/18 12:30 1,000 mls/hr ASDIR STA Administration Lorazepam 2 mg 09/05/18 11:39 09/05/18 11:50 Ativan Injection - IVPUSH 09/05/18 11:40 2 mg ONCE ONE Administration Medical Decision Making - Medical Decision Making 09/05/18 13:30 Pt is a 37yo M with PMH of Alcohol Use BIBA from Detox for vomiting, withdrawal and hypokalemia. Pt drank 1pt before going to detox yesterday. Pt is endorsing nausea but denies headache, sob, chest pain, tremors, abdominal pain, diarrhea, hematemesis, syncope, cough, fevers, chills. Per detox, pt K was found to be low and was sent here for hydration and potassium repletion. Vitals: hypertensive PE: tongue fasiculations, non tender abdomen, lungs cta, no tremors Pt likely withdrawing, vomiting due to alcohol use. -labs -fluids, ativan labs at baseline. K 4.0, does not need repletion -Librium. EKG: QTc 528. NSR. will not give zofran. pt tolerating po. 09/05/18 19:44 Pt states he is feeling better. asking for more water. labs wnl. Safe for dc back to [facility] spoke to nurses. pt will go back. *DC/Admit/Observation/Transfer Diagnosis at time of Disposition: Nausea & vomiting Qualifiers: Vomiting type: unspecified Vomiting Intractability: non-intractable Qualified Code(s): R11.2 - Nausea with vomiting, unspecified - Discharge Dispostion Disposition: TRANSFER ACUTE CARE/OTHER HOSP Condition at time of disposition: Good Decision to Admit order: No - Referrals - Patient Instructions Printed Discharge Instructions: DI for Alcohol Abuse Additional Instructions: You were seen in the emergency room for withdrawals and vomiting. Your potassium levels are normal. You will be going back to detox. Come back to the emergency room if vomiting continues, you start vomiting blood , you have seizures or if any new concerning symptom develops. Thank you - Post Discharge Activity
[2018-09-05 15:02] VITALS: BP 155/95; PULSE 90; TEMP 98.4
--- NOTE | 2018-09-05 15:02 | PDOC ---
Documentation entered by Elizabeth Webb SCRIBE, acting as scribe for Samantha Mercedes MD. Samantha Mercedes MD: This documentation has been prepared by the Tracey lewis Daisy, SCRIBE, under my direction and personally reviewed by me in its entirety. I confirm that the documentation accurately reflects all work, treatment, procedures, and medical decision making performed by me. Attending Attestation - Resident Resident Name: HaylieJeanette - ED Attending Attestation I have performed the following: I have examined & evaluated the patient, The case was reviewed & discussed with the resident, I agree w/resident's findings & plan - HPI HPI: 09/05/18 13:04 The patient is a 37 YOM with a PMH of EtOH abuse who presents to the ER sent in by [facility] for multiple episodes of vomiting. He reports intermittent vomiting for the past month after drinking. Denies tremors or abdominal pain. Denies any other symptoms at this time. Allergies: NKDA Social Hx: EtOH abuse. Denies drug or cigarette use. ' Surgeries: None reported. - Physicial Exam PE: 09/05/18 13:07 ADULT EXAM GENERAL: Awake, alert, and fully oriented, in no acute distress (+) obese. HEAD: No signs of trauma EYES: PERRLA, EOMI, sclera anicteric, conjunctiva clear ENT: Auricles normal inspection, hearing grossly normal, nares patent, oropharynx clear without exudates. Moist mucosa NECK: Normal ROM, supple, no lymphadenopathy, JVD, or masses LUNGS: Breath sounds equal, clear to auscultation bilaterally. No wheezes, and no crackles HEART: Regular rate and rhythm, normal S1 and S2, no murmurs, rubs or gallops ABDOMEN: Soft, nontender, normoactive bowel sounds. No guarding, no rebound. No masses EXTREMITIES: Normal range of motion, no edema. No clubbing or cyanosis. No cords, erythema, or tenderness NEUROLOGICAL: (+) Tongue fasciculations. SKIN: Warm, Dry, normal turgor, no rashes or lesions noted. - Medical Decision Making 09/05/18 15:00 Pt presents to the ED complaining of nausea and vomiting at [facility]. As per the patient, he has vomiting every time he attempts to abstain from alcohol. Patient had tongue fasiculations on my exam, but no other signs or symptoms of withdrawal. Tolerating PO. Improved with ativan and librium. Will discharge to [facility] to continue detox.
--- NOTE | 2018-09-06 09:43 | EKG ---
Test Reason : Blood Pressure : / mmHG Vent. Rate : 089 BPM Atrial Rate : 089 BPM P-R Int : 134 ms QRS Dur : 084 ms QT Int : 434 ms P-R-T Axes : 051 013 -70 degrees QTc Int : 528 ms NORMAL SINUS RHYTHM PROLONGED QT ABNORMAL ECG WHEN COMPARED WITH ECG OF 04-SEP-2018 22:48, T WAVE INVERSION LESS EVIDENT IN LATERAL LEADS Confirmed by BORA DELA CRUZ, JENNA ([id number]) on 09/06/2018 9:43:16 AM Referred By: Confirmed By:JENNA SAHNI MD
== END 2018-09-05 15:02 | disposition short-term general hospital (02) ==
LOC: JER 11:16
PROC: 3E033NZ Introduction of Analgesics, Hypnotics, Sedatives into Peripheral Vein, Percutaneous Approach (ICD-10-PCS; principal; 2018-09-05)
PROC: 3E0337Z Introduction of Electrolytic and Water Balance Substance into Peripheral Vein, Percutaneous Approach (ICD-10-PCS; 2018-09-05)
DX: R11.2 Nausea with vomiting, unspecified (principal); F10.99 Alcohol use, unspecified with unspecified alcohol-induced disorder; F41.8 Other specified anxiety disorders
CPT/HCPCS: 36415; 80053; 83690; 83735; 85025; 93005; 93010; 96361; 96374; 99282-25; J7030

== ENCOUNTER 2018-10-10 11:36 | Inpatient (IN) | payer OTHER ==
[2018-10-10 15:13] VITALS: BMI 37.1
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
[2018-10-10] MEDS ORDERED: MAGNESIUM CITRATE 300 ML BOTTLE PO PRN (15:54)
[2018-10-10] MEDS ORDERED: ACETAMINOPHEN 325 MG TABLET (FP) PO PRN ×2 (15:54)
[2018-10-10] MEDS ORDERED: BISMUTH SUBSALICYLATE 524 MG/30 ML UD PO PRN (15:54)
[2018-10-10] MEDS ORDERED: chlordiazePOXIDE HCL 25 MG CAPSULE PO ONE (15:54)
[2018-10-10] MEDS ORDERED: MAGNESIUM HYDROX 2400MG/30ML ORAL SUSPENSION 30 ML CUP PO PRN (15:54)
[2018-10-10] MEDS ORDERED: MAG HYDROX/AL HYDROX/SIMETH 30 ML UNIT-DOSE CUP PO PRN (15:54)
[2018-10-10] MEDS ORDERED: MENTHOL/PHENOL 1 EACH UD MM PRN (15:54)
[2018-10-10] MEDS: amLODIPine BESYLATE 10 MG TABLET (FP) PO SCH (17:15)
[2018-10-10] MEDS: chlordiazePOXIDE HCL 25 MG CAPSULE PO SCH ×2 (17:15→22:20)
[2018-10-10] MEDS: chlordiazePOXIDE HCL 25 MG CAPSULE PO PRN (20:12)
[2018-10-10] MEDS: hydrOXYzine PAMOATE 25 MG CAPSULE (FP) PO PRN (22:20)
[2018-10-10] MEDS: MELATONIN 5 MG TABLETS PO PRN (22:20)
[2018-10-10] MEDS: THIAMINE HCL 100 MG TABLET (FP) PO SCH (22:21)
[2018-10-11] MEDS: chlordiazePOXIDE HCL 25 MG CAPSULE PO PRN ×3 (02:42→14:01)
[2018-10-11] MEDS: hydrOXYzine PAMOATE 25 MG CAPSULE (FP) PO PRN (03:21)
[2018-10-11] MEDS: chlordiazePOXIDE HCL 25 MG CAPSULE PO SCH ×4 (05:58→22:50)
[2018-10-11] MEDS ORDERED: METHADONE HCL 10 MG TABLET PO ONE (08:46)
[2018-10-11] MEDS ORDERED: METHADONE HCL 40 MG DISPERSABLE TABLET PO ONE (10:00)
[2018-10-11] MEDS: amLODIPine BESYLATE 10 MG TABLET (FP) PO SCH (10:09)
[2018-10-11] MEDS: PRENATAL VITAMINS W/ FOLIC ACID TABLET (FP) PO SCH (10:10)
--- NOTE | 2018-10-11 10:10 | PN ---
[facility] CIWA - CIWA Score Nausea/Vomitin-No Nausea/No Vomiting Muscle Tremors: 4-Moderate,w/Arms Extend Anxiety: 4-Mod. Anxious/Guarded Agitation: 4-Moderately Restless Paroxysmal Sweats: 4-Forehead w/Sweat Beads Orientation: 0-Oriented Tacttile Disturbances: 0-None Auditory Disturbances: 0-None Visual Disturbances: 0-None Headache: 1-Very Mild CIWA-Ar Total Score: 17 [facility] Progress Note (SOAP) Subjective: sweats shakes interrupted sleep body aches agitation Objective: 10/11/18 10:06 Vital Signs Temperature 97.5 F L 10/11/18 09:24 Pulse Rate 114 H 10/11/18 09:24 Respiratory Rate 16 10/11/18 09:24 Blood Pressure 159/113 H 10/11/18 09:24 O2 Sat by Pulse Oximetry (%) labs pending aaox3 ambulating no acute distress Assessment: 10/11/18 10:07 withdrawal sx Plan: continue detox increase fluids pending labs
[2018-10-11] MEDS: THIAMINE HCL 100 MG TABLET (FP) PO SCH (22:50)
[2018-10-11] MEDS: MELATONIN 5 MG TABLETS PO PRN (22:50)
[2018-10-11] MEDS: IBUPROFEN 400 MG TABLET (FP) PO PRN (22:52)
[2018-10-12] MEDS: chlordiazePOXIDE HCL 25 MG CAPSULE PO SCH ×2 (05:31→10:07)
[2018-10-12] MEDS: METHADONE HCL 40 MG DISPERSABLE TABLET PO SCH (05:31)
[2018-10-12] MEDS: amLODIPine BESYLATE 10 MG TABLET (FP) PO SCH (10:06)
[2018-10-12] MEDS: PRENATAL VITAMINS W/ FOLIC ACID TABLET (FP) PO SCH (10:06)
[2018-10-12] MEDS: IBUPROFEN 400 MG TABLET (FP) PO PRN ×2 (10:08→22:03)
--- NOTE | 2018-10-12 11:50 | PN ---
[facility] CIWA - CIWA Score Nausea/Vomitin-Mild Nausea/No Vomiting Muscle Tremors: 3 Anxiety: 4-Mod. Anxious/Guarded Agitation: 3 Paroxysmal Sweats: 3 Orientation: 0-Oriented Tacttile Disturbances: 0-None Auditory Disturbances: 0-None Visual Disturbances: 0-None Headache: 0-None Present CIWA-Ar Total Score: 14 S Progress Note (SOAP) Subjective: Tremor, sweating, chills, interrupted sleep Objective: 10/12/18 11:46 Last Vital Signs Temp Pulse Resp BP Pulse Ox 97.0 F L 122 H 14 158/107 H 10/12/18 09:09 10/12/18 09:09 10/12/18 09:09 10/12/18 09:09 Elevated b/p: 158/107 (has htn, on norvasc 10mg but uncontrolled. Add lisinopril 10mg PO bid. No admission labs available; admission labs ordered in AM (CBC, CMP, UA) Assessment: 10/12/18 12:03 Withdrawal symptoms Noted with uncontrolled HTN Plan: Continue detox Encouraged PO water hydration Admission labs ordered in AM: UA, CBC, CMP Follow up on admission lab results HTN, uncontrolled: continue norvasc 10mg PO daily Add lisinopril 10mg PO BID, first dose now Continue to monitor
[2018-10-12] MEDS: LISINOPRIL 10 MG TABLET (FP) PO SCH ×2 (13:50→22:04)
[2018-10-12] MEDS: hydrOXYzine PAMOATE 25 MG CAPSULE (FP) PO PRN ×2 (13:51→22:06)
[2018-10-12] MEDS: chlordiazePOXIDE HCL 10 MG CAPSULE PO SCH ×2 (16:59→22:04)
[2018-10-12] MEDS ORDERED: chlordiazePOXIDE HCL 10 MG CAPSULE PO PRN (17:00)
[2018-10-12] MEDS: MELATONIN 5 MG TABLETS PO PRN (22:04)
[2018-10-12] MEDS: THIAMINE HCL 100 MG TABLET (FP) PO SCH (22:05)
[2018-10-13] MEDS: METHADONE HCL 40 MG DISPERSABLE TABLET PO SCH (06:12)
[2018-10-13] MEDS: chlordiazePOXIDE HCL 10 MG CAPSULE PO SCH ×3 (06:12→18:05)
[2018-10-13 09:54] LABS: BASO % 1.3 % (0-2.0); EOS % 6.4 % (0-4.5); HEMATOCRIT 47.3 % (35.4-49); HEMOGLOBIN 15.9 GM/dL (11.7-16.9); LYMPH % 19.2 % (8-40); MCH 32.4 pg (25.7-33.7); MCHC 33.7 g/dl (32.0-35.9); MEAN PLT VOLUME 9.9 fl (7.5-11.1); MONO % 7.5 % (3.8-10.2); NEUT % 65.6 % (42.8-82.8); PLATELET COUNT 87 K/MM3 (134-434); RBC 4.92 M/mm3 (4.00-5.60); RDW 13.3 % (11.9-15.9); WHITE BLOOD COUNT 4.7 K/mm3 (4.0-10.0)
[2018-10-13 10:03] LABS: ALBUMIN 3.1 g/dl (3.4-5.0); BILIRUBIN,TOTAL 1.6 mg/dL (0.2-1); BLOOD UREA NITROGEN 9.9 mg/dL (7-18); CALCIUM 8.5 mg/dL (8.5-10.1); CREATININE 0.7 mg/dL (0.55-1.3); POTASSIUM 3.3 mmol/L (3.5-5.1)
[2018-10-13] MEDS: PRENATAL VITAMINS W/ FOLIC ACID TABLET (FP) PO SCH (10:16)
[2018-10-13] MEDS: amLODIPine BESYLATE 10 MG TABLET (FP) PO SCH (10:16)
[2018-10-13] MEDS: LISINOPRIL 10 MG TABLET (FP) PO SCH ×2 (10:16→22:19)
[2018-10-13] MEDS: IBUPROFEN 400 MG TABLET (FP) PO PRN (10:18)
--- NOTE | 2018-10-13 13:33 | PN ---
[facility] CIWA - CIWA Score Nausea/Vomitin-No Nausea/No Vomiting Muscle Tremors: None Anxiety: 0-No Anxiety, at Ease Agitation: 2 Paroxysmal Sweats: No Perspiration Orientation: 0-Oriented Tacttile Disturbances: 0-None Auditory Disturbances: 0-None Visual Disturbances: 0-None Headache: 0-None Present CIWA-Ar Total Score: 2 S Progress Note (SOAP) Subjective: Patient denies current Withdrawal / Detox symptoms and reports that he feels well overall at this time. Objective: PATIENT A & O X 3, OBSERVED AMBULATING ON UNIT UNASSISTED. IN NO ACUTE DISTRESS. 10/13/18 13:35 Vital Signs Temperature 97.7 F 10/13/18 12:49 Pulse Rate 115 H 10/13/18 12:49 Respiratory Rate 20 10/13/18 12:49 Blood Pressure 124/92 10/13/18 12:49 O2 Sat by Pulse Oximetry (%) Laboratory Tests 10/13/18 10/13/18 07:00 07:00 WBC 4.7 RBC 4.92 Hgb 15.9 Hct 47.3 MCV 96.0 MCH 32.4 MCHC 33.7 RDW 13.3 Plt Count 87 L D MPV 9.9 D Absolute Neuts (auto) 3.1 Neutrophils % 65.6 Lymphocytes % 19.2 D Monocytes % 7.5 Eosinophils % 6.4 H D Basophils % 1.3 Nucleated RBC % 0 Sodium 136 Potassium 3.3 L Chloride 98 Carbon Dioxide 31 Anion Gap 8 BUN 9.9 Creatinine 0.7 Est GFR (CKD-EPI)AfAm 139.73 Est GFR (CKD-EPI)NonAf 120.56 Random Glucose 122 H Calcium 8.5 Total Bilirubin 1.6 H AST 119 H ALT 151 H Alkaline Phosphatase 122 H Total Protein 7.0 Albumin 3.1 L LABS NOTED. PATIENT HAS HAD LOW PLATELET LEVELS ON PREVIOUS ADMISSIONS. 10/13/18 13:37 Assessment: 10/13/18 13:35 WITHDRAWAL SYMPTOMS. HYPERBILIRUBINEMIA. ELEVATED LIVER ENZYMES. HYPOKALEMIA. THROMBOCYTOPENIA. 10/13/18 13:37 Plan: CONTINUE DETOX., INCREASE DAILY PO FLUID INTAKE. K-DUR, 40 MEQ PO X 1 DOSE NOW, THEN 20 MEQ PO BID AFTER (POTASSIUM LEVEL RESULT ONLY AVAILABLE TODAY FOR FIRST TIME [facility] DETOX ADMISSION.
[2018-10-13] MEDS ORDERED: POTASSIUM CHLORIDE TABS 20 MEQ TABLET.ER (FP) PO ONE ×2 (14:00→18:00)
[2018-10-13] MEDS ORDERED: POTASSIUM CHLORIDE TABS 20 MEQ TABLET.ER (FP) PO SCH (22:00)
[2018-10-13] MEDS: MELATONIN 5 MG TABLETS PO PRN (22:19)
[2018-10-13] MEDS: THIAMINE HCL 100 MG TABLET (FP) PO SCH (22:19)
[2018-10-13] MEDS: hydrOXYzine PAMOATE 25 MG CAPSULE (FP) PO PRN (22:21)
[2018-10-14] MEDS: METHADONE HCL 40 MG DISPERSABLE TABLET PO SCH (06:07)
[2018-10-14] MEDS: chlordiazePOXIDE HCL 10 MG CAPSULE PO SCH (06:08)
[2018-10-14 06:09] VITALS: TEMP 98.1
--- NOTE | 2018-10-14 09:25 | DS ---
[facility] Detox Discharge Summary Admission Date: 10/10/18 Discharge Date: 10/14/18 - History Present History: Alcohol Dependence, Cocaine Dependence, MMTP - Physical Exam Results Vital Signs: Vital Signs Temperature 98.1 F 10/14/18 06:00 Pulse Rate 77 10/14/18 07:14 Respiratory Rate 18 10/14/18 07:14 Blood Pressure 133/90 10/14/18 07:14 O2 Sat by Pulse Oximetry (%) - Treatment Hospital Course: Detox Protocol Followed, Detoxed Safely, Responded well, Discharged Condition Good, Rehab Referral Accepted - Medication Discharge Medications: Ambulatory Orders Methadone [Dolophine -] 120 mg PO DAILY 07/20/18 Amlodipine Besylate [Norvasc -] 10 mg PO DAILY #30 tablet 09/07/18 - Diagnosis (1) Alcohol dependence with uncomplicated intoxication Current Visit: Yes Status: Chronic (2) Elevated liver enzymes Current Visit: Yes Status: Acute (3) Hypokalemia Current Visit: Yes Status: Acute (4) Bipolar 1 disorder, depressed Current Visit: No Status: Acute (5) Hypertension Current Visit: Yes Status: Chronic Qualifiers: Hypertension type: essential hypertension Qualified Code(s): I10 - Essential (primary) hypertension (6) Insomnia Current Visit: No Status: Acute (7) Substance-induced sleep disorder Current Visit: No Status: Acute (8) Syncope Current Visit: No Status: Acute (9) Depression (emotion) Current Visit: No Status: Chronic Qualifiers: Depression Type: unspecified Qualified Code(s): F32.9 - Major depressive disorder, single episode, unspecified (10) History of positive PPD Current Visit: No Status: Chronic (11) Methadone maintenance therapy patient Current Visit: No Status: Chronic (12) Nicotine dependence Current Visit: Yes Status: Chronic Qualifiers: Nicotine product type: cigarettes Substance use status: uncomplicated Qualified Code(s): F17.210 - Nicotine dependence, cigarettes, uncomplicated (13) Positive PPD Current Visit: No Status: Chronic (14) anxiety and depression Current Visit: No Status: Chronic (15) 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
[2018-10-14 09:44] VITALS: BP 126/96; PULSE 120
== END 2018-10-14 09:25 | disposition home or self-care (01) | DRG 773 ==
LOC: YASAS 11:36 → Y6N 16:27
PROVIDERS: ADMIT Surgery; ATTEND Surgery
PROC: HZ2ZZZZ Detoxification Services for Substance Abuse Treatment (ICD-10-PCS; principal; 2018-10-10)
DX: F10.230 Alcohol dependence with withdrawal, uncomplicated (principal); F12.20 Cannabis dependence, uncomplicated; F11.20 Opioid dependence, uncomplicated; F17.210 Nicotine dependence, cigarettes, uncomplicated; F19.24 Other psychoactive substance dependence with psychoactive substance-induced mood disorder; F34.1 Dysthymic disorder; F32.9 Major depressive disorder, single episode, unspecified; F41.9 Anxiety disorder, unspecified; I10 Essential (primary) hypertension; G47.00 Insomnia, unspecified; E87.6 Hypokalemia; E80.6 Other disorders of bilirubin metabolism; D69.6 Thrombocytopenia, unspecified; R55 Syncope and collapse; R76.11 Nonspecific reaction to tuberculin skin test without active tuberculosis; R94.5 Abnormal results of liver function studies
CPT/HCPCS: 36415; 80053; 85025

== ENCOUNTER 2019-01-14 17:39 | Inpatient (IN) | payer OTHER ==
[2019-01-14 18:06] VITALS: BMI 35.5
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
[2019-01-14] MEDS ORDERED: METHOCARBAMOL 500 MG TABLET PO PRN (19:15)
[2019-01-14] MEDS ORDERED: MENTHOL/PHENOL 1 EACH UD MM PRN (19:15)
[2019-01-14] MEDS ORDERED: MELATONIN 5 MG TABLETS PO PRN (19:15)
[2019-01-14] MEDS ORDERED: MAGNESIUM HYDROX 2400MG/30ML ORAL SUSPENSION 30 ML CUP PO PRN (19:15)
[2019-01-14] MEDS ORDERED: MAGNESIUM CITRATE 300 ML BOTTLE PO PRN (19:15)
[2019-01-14] MEDS ORDERED: hydrOXYzine PAMOATE 25 MG CAPSULE (FP) PO PRN (19:15)
[2019-01-14] MEDS ORDERED: IBUPROFEN 400 MG TABLET (FP) PO PRN (19:15)
[2019-01-14] MEDS ORDERED: MAG HYDROX/AL HYDROX/SIMETH 30 ML UNIT-DOSE CUP PO PRN (19:15)
[2019-01-14] MEDS ORDERED: ACETAMINOPHEN 325 MG TABLET (FP) PO PRN ×2 (19:15)
[2019-01-14] MEDS ORDERED: BISMUTH SUBSALICYLATE 524 MG/30 ML UD PO PRN (19:15)
[2019-01-14] MEDS ORDERED: LISINOPRIL 5 MG TABLET (FP) PO ONE (19:18)
--- NOTE | 2019-01-14 19:33 | PN ---
Teaching Attending Note Name of Resident: Christian Ruffin ATTENDING PHYSICIAN STATEMENT I saw and evaluated the patient. I reviewed the resident's note and discussed the case with the resident. I agree with the resident's findings and plan as documented. SUBJECTIVE: 38 yo with long h/o alcohol use disorder and OUD. Is in a methadone program- last dose about 5 days ago. OBJECTIVE: Vital Signs - 24 hr 01/14/19 17:41 Temperature 97.5 F L Pulse Rate 129 H Respiratory 20 Rate Blood Pressure 162/103 H tremulous icteric sclera ASSESSMENT AND PLAN: AUD- ativan detox per protocol OUD- confirm dose and restart methadone as needed
[2019-01-14] MEDS: LORazepam 1 MG TABLET PO PRN (20:05)
[2019-01-14] MEDS: THIAMINE HCL 100 MG TABLET (FP) PO SCH (22:14)
[2019-01-14] MEDS: LORazepam 2 MG TABLET PO SCH (22:15)
[2019-01-15] MEDS: LORazepam 2 MG TABLET PO SCH ×4 (05:27→22:17)
[2019-01-15] MEDS: LORazepam 1 MG TABLET PO PRN (08:29)
--- NOTE | 2019-01-15 08:43 | PN ---
[facility] Progress Note Note: pt missed 11 days of his methadone from his MMTP program at [facility]; and it was confirmed by Efraín DURAND at [facility] he needs to be started on 40mg and be built up until he reaches his final dose of 120mg. pt will remain in detox until he completes his detox and if he has not reached his methadone dose while in our care; pt is to return to his MMTP program for his continued built up. pt in agreement.
[2019-01-15] MEDS ORDERED: METHADONE HCL 40 MG DISPERSABLE TABLET PO ONE (09:15)
[2019-01-15 09:58] LABS: ALBUMIN 2.7 g/dl (3.4-5.0); BILIRUBIN,TOTAL 13.3 mg/dL (0.2-1); BLOOD UREA NITROGEN 8.3 mg/dL (7-18); CALCIUM 8.4 mg/dL (8.5-10.1); CREATININE 1.3 mg/dL (0.55-1.3); POTASSIUM 3.3 mmol/L (3.5-5.1); TOT PROT 7.3 g/dl (6.4-8.2)
[2019-01-15 10:05] LABS: HEMATOCRIT 43.6 % (35.4-49); HEMOGLOBIN 14.8 GM/dL (11.7-16.9); MCH 33.1 pg (25.7-33.7); MCHC 34.1 g/dl (32.0-35.9); MEAN CELL VOLUME 97.3 fl (80-96); MEAN PLT VOLUME 11.4 fl (7.5-11.1); PLATELET COUNT 82 K/MM3 (134-434); RBC 4.48 M/mm3 (4.00-5.60); RDW 14.8 % (11.9-15.9); WHITE BLOOD COUNT 9.4 K/mm3 (4.0-10.0)
[2019-01-15] MEDS: PRENATAL VITAMINS W/ FOLIC ACID TABLET (FP) PO SCH (10:13)
[2019-01-15] MEDS ORDERED: amLODIPine BESYLATE 10 MG TABLET (FP) PO ONE (11:15)
[2019-01-15] MEDS: LISINOPRIL 10 MG TABLET (FP) PO SCH ×2 (11:38→22:16)
--- NOTE | 2019-01-15 11:44 | PN ---
S CIWA - CIWA Score Nausea/Vomitin Muscle Tremors: 2 Anxiety: 3 Agitation: 3 Paroxysmal Sweats: 1-Minimal Palms Moist Orientation: 0-Oriented Tacttile Disturbances: 1-Very Mild Itch/Numbness Auditory Disturbances: 0-None Visual Disturbances: 0-None Headache: 2-Mild CIWA-Ar Total Score: 14 S Progress Note (SOAP) Subjective: alert,irritable,anxious,interrupted sleep,tremor,pain in the body Objective: 01/15/19 11:43 Vital Signs Temperature 98.8 F 01/15/19 07:22 Pulse Rate 152 H 01/15/19 09:22 Respiratory Rate 20 01/15/19 09:22 Blood Pressure 137/100 01/15/19 09:22 O2 Sat by Pulse Oximetry (%) 01/15/19 11:47 01/15/19 01/15/19 08:00 08:00 WBC 9.4 RBC 4.48 Hgb 14.8 Hct 43.6 MCV 97.3 H MCHC 34.1 RDW 14.8 D Plt Count 82 L Sodium 128 L Potassium 3.3 L Chloride 84 L Carbon Dioxide 27 Anion Gap 17 H BUN 8.3 Creatinine 1.3 Assessment: 01/15/19 11:48 withdrawal symptom Plan: continue detox ativan regimen,no build up methadone,k dur 20 meq po now daily for 3 days,cmp in am,initial sodium 128, seizure precaution
[2019-01-15] MEDS ORDERED: POTASSIUM CHLORIDE TABS 20 MEQ TABLET.ER (FP) PO ONE (11:50)
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
[2019-01-15] MEDS ORDERED: cloNIDine HCL 0.1 MG TABLET PO ONE (12:15)
[2019-01-15] MEDS ORDERED: MELATONIN 5 MG TABLETS PO PRN (12:35)
[2019-01-15] MEDS: THIAMINE HCL 100 MG TABLET (FP) PO SCH (22:16)
[2019-01-15] MEDS: cloNIDine HCL 0.1 MG TABLET PO SCH (22:17)
[2019-01-16] MEDS: LORazepam 1 MG TABLET PO PRN (01:08)
[2019-01-16] MEDS ORDERED: ASPIRIN 81 MG CHEWABLE TABLETS PO ONE (04:11)
--- NOTE | 2019-01-16 04:16 | PN ---
[facility] Progress Note Note: Patient is agitated and restless. His pulse rate is 141 Vital Signs Temperature 98 F 01/16/19 04:16 Pulse Rate 141 H 01/16/19 04:16 Respiratory Rate 34 H 01/16/19 04:16 Blood Pressure 117/70 01/16/19 04:16 O2 Sat by Pulse Oximetry (%) Action: EKG - Sinus tachycardia.Nonspecific ST abnormality. abnormal ECG Aspirin 81mg tablet 1 tablet oral stat
[2019-01-16] MEDS ORDERED: METHADONE HCL 40 MG DISPERSABLE TABLET ONE (05:13)
[2019-01-16] MEDS ORDERED: METHADONE HCL 10 MG TABLET ONE (05:13)
[2019-01-16] MEDS ORDERED: METHADONE 40 MG, METHADONE 10 MG PO ONE ×2 (06:00)
[2019-01-16] MEDS ORDERED: METHADONE HCL 10 MG TABLET PO ONE (06:00)
[2019-01-16] MEDS: LORazepam 1 MG TABLET PO SCH ×2 (06:23→10:07)
[2019-01-16 09:33] VITALS: BP 109/50; PULSE 138; TEMP 97.7
[2019-01-16] MEDS ORDERED: POTASSIUM CHLORIDE TABS 20 MEQ TABLET.ER (FP) PO SCH (10:00)
[2019-01-16] MEDS: PRENATAL VITAMINS W/ FOLIC ACID TABLET (FP) PO SCH (10:07)
[2019-01-16] MEDS: LISINOPRIL 10 MG TABLET (FP) PO SCH (10:07)
[2019-01-16 10:10] LABS: ALBUMIN 2.6 g/dl (3.4-5.0); CALCIUM 8.3 mg/dL (8.5-10.1); CREATININE 1.2 mg/dL (0.55-1.3); POTASSIUM 3.1 mmol/L (3.5-5.1)
[2019-01-16] MEDS: cloNIDine HCL 0.1 MG TABLET PO SCH (10:10)
[2019-01-16 10:34] LABS: BILIRUBIN,TOTAL 15.3 mg/dL (0.2-1)
--- NOTE | 2019-01-16 11:07 | PN ---
S CIWA - CIWA Score Nausea/Vomitin Muscle Tremors: 3 Anxiety: 3 Agitation: 3 Paroxysmal Sweats: 1-Minimal Palms Moist Orientation: 0-Oriented Tacttile Disturbances: 0-None Auditory Disturbances: 0-None Visual Disturbances: 0-None Headache: 2-Mild CIWA-Ar Total Score: 14 S Progress Note (SOAP) Subjective: alert,confused at time,tachycardia,tremor Objective: 01/16/19 11:04 Vital Signs Temperature 97.7 F 01/16/19 09:32 Pulse Rate 138 H 01/16/19 09:32 Respiratory Rate 20 01/16/19 09:32 Blood Pressure 109/50 L 01/16/19 09:32 O2 Sat by Pulse Oximetry (%) Laboratory Last Values WBC 9.4 K/mm3 (4.0-10.0) 01/15/19 08:00 RBC 4.48 M/mm3 (4.00-5.60) 01/15/19 08:00 Hgb 14.8 GM/dL (11.7-16.9) 01/15/19 08:00 Hct 43.6 % (35.4-49) 01/15/19 08:00 MCV 97.3 fl (80-96) H 01/15/19 08:00 MCH 33.1 pg (25.7-33.7) 01/15/19 08:00 MCHC 34.1 g/dl (32.0-35.9) 01/15/19 08:00 RDW 14.8 % (11.9-15.9) D 01/15/19 08:00 Plt Count 82 K/MM3 (134-434) L 01/15/19 08:00 MPV 11.4 fl (7.5-11.1) H D 01/15/19 08:00 Sodium 129 mmol/L (136-145) L 01/16/19 08:00 Potassium 3.1 mmol/L (3.5-5.1) L 01/16/19 08:00 Chloride 86 mmol/L (98-107) L 01/16/19 08:00 Carbon Dioxide 28 mmol/L (21-32) 01/16/19 08:00 Anion Gap 14 MMOL/L (8-16) 01/16/19 08:00 BUN 8.0 mg/dL (7-18) 01/16/19 08:00 Creatinine 1.2 mg/dL (0.55-1.3) 01/16/19 08:00 Est GFR (CKD-EPI)AfAm 88.37 01/16/19 08:00 Est GFR (CKD-EPI)NonAf 76.25 01/16/19 08:00 Random Glucose 121 mg/dL (74-106) H 01/16/19 08:00 Calcium 8.3 mg/dL (8.5-10.1) L 01/16/19 08:00 Total Bilirubin 15.3 mg/dL (0.2-1) H* D 01/16/19 08:00 AST 418 U/L (15-37) H 01/16/19 08:00 ALT 144 U/L (13-61) H 01/16/19 08:00 Alkaline Phosphatase 329 U/L (45-117) H 01/16/19 08:00 Total Protein 7.0 g/dl (6.4-8.2) 01/16/19 08:00 Albumin 2.6 g/dl (3.4-5.0) L 01/16/19 08:00 RPR Titer Nonreactive (NONREACTIVE) 01/15/19 08:00 Assessment: 01/16/19 11:06 withdrawal symptom r/o hepatic encephalopathy, Plan: to er at [facility] for evaluation and treatment,endorsed to dR.Monica Herrera, to be transported by [facility]
--- NOTE | 2019-01-16 13:45 | EKG ---
Test Reason : Blood Pressure : / mmHG Vent. Rate : 120 BPM Atrial Rate : 120 BPM P-R Int : 126 ms QRS Dur : 082 ms QT Int : 356 ms P-R-T Axes : 049 070 035 degrees QTc Int : 503 ms SINUS TACHYCARDIA NONSPECIFIC ST ABNORMALITY ABNORMAL ECG Confirmed by ZHANNA GRANT MD ([id number]) on 01/16/2019 1:45:30 PM Referred By: Confirmed By:ZHANNA GRANT MD
[2019-01-17] MEDS ORDERED: LORazepam 0.5 MG TABLET PO PRN
[2019-01-17] MEDS ORDERED: LORazepam 0.5 MG TABLET PO SCH (05:00)
[2019-01-17] MEDS ORDERED: METHADONE 40 MG, METHADONE 20 MG PO ONE (06:00)
[2019-01-17] MEDS ORDERED: METHADONE HCL 10 MG TABLET PO ONE ×2 (06:00→08:40)
--- NOTE | 2019-01-17 15:18 | EKG ---
Test Reason : Blood Pressure : / mmHG Vent. Rate : 120 BPM Atrial Rate : 120 BPM P-R Int : 126 ms QRS Dur : 078 ms QT Int : 350 ms P-R-T Axes : 042 061 020 degrees QTc Int : 494 ms SINUS TACHYCARDIA LEFT ATRIAL ENLARGEMENT BORDERLINE ECG WHEN COMPARED WITH ECG OF 16-JAN-2019 03:30, NO SIGNIFICANT CHANGE WAS FOUND Confirmed by MD MERAZ MOYSES ([id number]) on 01/17/2019 3:18:39 PM Referred By: Confirmed By:MIRIAN MERAZ MD
[2019-01-18] MEDS ORDERED: LORazepam 0.5 MG TABLET PO ONE (05:00)
[2019-01-18] MEDS ORDERED: METHADONE HCL 10 MG TABLET PO ONE (06:00)
[2019-01-18] MEDS ORDERED: METHADONE 40 MG, METHADONE 30 MG PO SCH (06:00)
== END 2019-01-16 22:00 | disposition short-term general hospital (02) | DRG 773 ==
LOC: YASAS 17:39 → Y6N 19:17
PROVIDERS: ADMIT Surgery; ATTEND Surgery
PROC: HZ2ZZZZ Detoxification Services for Substance Abuse Treatment (ICD-10-PCS; principal; 2019-01-14)
DX: F10.230 Alcohol dependence with withdrawal, uncomplicated (principal); F11.20 Opioid dependence, uncomplicated; F17.210 Nicotine dependence, cigarettes, uncomplicated; F10.282 Alcohol dependence with alcohol-induced sleep disorder; F34.1 Dysthymic disorder; G47.00 Insomnia, unspecified; I10 Essential (primary) hypertension; G40.509 Epileptic seizures related to external causes, not intractable, without status epilepticus; R76.11 Nonspecific reaction to tuberculin skin test without active tuberculosis; R00.0 Tachycardia, unspecified; R94.31 Abnormal electrocardiogram [ECG] [EKG]
CPT/HCPCS: 36415; 80053; 82140; 85027; 86593; 93005; 93010; J0735

== ENCOUNTER 2019-01-16 12:54 | Inpatient (IN) | payer OTHER ==
--- NOTE | 2019-01-16 13:09 | PDOC ---
History of Present Illness - General Chief Complaint: Revisit, Lab Variance Stated Complaint: ABDNORMAL LABS,AMS Time Seen by Provider: 01/16/19 13:08 Past History - Past Medical History Allergies/Adverse Reactions: Allergies Allergy/AdvReac Type Severity Reaction Status Date / Time No Known Allergies Allergy Verified 01/16/19 13:29 Home Medications: Ambulatory Orders Methadone [Dolophine -] 120 mg PO DAILY 07/20/18 Amlodipine Besylate [Norvasc -] 10 mg PO DAILY #30 tablet 09/07/18 Methadone [Dolophine -] 120 mg PO DAILY 01/14/19 NK [No Known Home Medication] 01/14/19 Kidney Stones: No - Surgical History Abdominal Surgery: No Appendectomy: No Cardiac Surgery: No Cholecystectomy: No Lung Surgery: No Neurologic Surgery: No Orthopedic Surgery: Yes (right index finger trauma at age 4) - Reproductive History Testicular Surgery: No - Immunization History Immunization Up to Date: No - Suicide/Smoking/Psychosocial Hx Substance Use Type: Alcohol, Opiates, Heroin Procedures - Intubation Blade used: Mac Tube Size (Fr): 7.0 Medications: Etomidate, Rocuronium Tube position confirmed by: Direct visualization, CO2 detector, Chest x-ray, Breath sounds Breath Sounds after Intubation: equal Intubation Complications: no complications Post Intubation Xray: Yes ED Treatment Course - LABORATORY CBC & Chemistry Diagram: 01/16/19 14:19 01/16/19 21:21 Medical Decision Making - Medical Decision Making HPI: 38yo M with PMH of HTN, ETOH abuse (1.5 pints of vodka daily), Opioid abuse (? on methadone) sent by [facility] for evaluation of elevated ammonia and r/o hepatic encephalopathy. Per their note, they report the patient is "alert, confused at time,tachycardia,tremor" and morning labs show an elevated ammonia, 59.6. Upon history taking, patient is able to answer some questions after repeating the question multiple times. States he has had alcohol withdrawals seizures in the past, but cannot say when the most recent one was. He has tangential speech and seems confused. History limited due to patient's confusion. PCP: none ROS: unable to complete (patient confused) PE: General: Awake, alert, and oriented x 2 ("[place]", "38," "hospital," cannot state month/year), diaphoretic Head: No signs of trauma Eyes: EOMI, sclera icteric ENT: Moist mucus membranes Neck: Normal ROM, supple Lungs: Lungs clear, Normal breath sounds Cardio: Tachycardic, regular rhythm, S1 and S2 present Abdomen: Abdomen distended, nontender. No guarding, no rebound, no masses Extremities: Normal range of motion, Distal pulses present, BUE tremor noted, but no flapping upon hyperextension of wrists SKIN: Jaundiced, diaphoretic Neurologic: Cranial nerves II through XII intact. Observed being able to ambulate steadily. Tangential speech, confusion. Following commands. ED Course/MDM: DDX including but not limited to hepatic encephalopathy, alcohol withdrawal, cirrhosis, metabolic derangement, anemia Labs, EKG, CXR Per [facility] phone message record: "Referred by Dr. Medeiros for tachycardia, AMS , hyponatremia, and hypokalemia" Patient last received 1mg ativan and K-Dur 20meq at 10:07am today EKG: rate 120, QTc 494, sinus tachycardia 01/16/19 13:08 Call to [facility] ext. [phone], unsuccessful in getting connected with a provider. 01/16/19 13:50 Ativan ordered for diaphoresis and tremulousness Lactulose ordered for hyperammonemia and confusion Patient pulled out his IV likely due to confusion; 18 gauge IV inserted in RUE by me CBC WBC 8.9 K/mm3 (4.0-10.0) 01/16/19 14:19 RBC 4.22 M/mm3 (4.00-5.60) 01/16/19 14:19 Hgb 14.2 GM/dL (11.7-16.9) 01/16/19 14:19 Hct 41.2 % (35.4-49) 01/16/19 14:19 MCV 97.8 fl (80-96) H 01/16/19 14:19 MCH 33.6 pg (25.7-33.7) 01/16/19 14:19 MCHC 34.4 g/dl (32.0-35.9) 01/16/19 14:19 RDW 14.9 % (11.9-15.9) 01/16/19 14:19 Plt Count 82 K/MM3 (134-434) L 01/16/19 14:19 MPV 11.2 fl (7.5-11.1) H 01/16/19 14:19 Absolute Neuts (auto) 6.7 K/mm3 (1.5-8.0) 01/16/19 14:19 Neutrophils % No Result Required. 01/16/19 14:19 Lymphocytes % No Result Required. 01/16/19 14:19 Nucleated RBC % 1 % (0-0) H 01/16/19 14:19 No leukocytosis CMP Sodium 128 mmol/L (136-145) L 01/16/19 14:19 Potassium 3.5 mmol/L (3.5-5.1) 01/16/19 14:19 Chloride 89 mmol/L (98-107) L 01/16/19 14:19 Carbon Dioxide 30 mmol/L (21-32) 01/16/19 14:19 Anion Gap 9 MMOL/L (8-16) 01/16/19 14:19 BUN 11.8 mg/dL (7-18) 01/16/19 14:19 Creatinine 2.0 mg/dL (0.55-1.3) H 01/16/19 14:19 Est GFR (CKD-EPI)AfAm 47.65 01/16/19 14:19 Est GFR (CKD-EPI)NonAf 41.12 01/16/19 14:19 Random Glucose 106 mg/dL (74-106) 01/16/19 14:19 Calcium 8.8 mg/dL (8.5-10.1) 01/16/19 14:19 Total Bilirubin 15.7 mg/dL (0.2-1) H* 01/16/19 14:19 AST 389 U/L (15-37) H 01/16/19 14:19 ALT 139 U/L (13-61) H 01/16/19 14:19 Alkaline Phosphatase 311 U/L (45-117) H 01/16/19 14:19 Ammonia 56.90 umol/L (11-32) H 01/16/19 14:19 Creatine Kinase 360 U/L (26-308) H 01/16/19 14:19 Creatine Kinase Index 0.3 % (0.0-5.0) 01/16/19 14:19 CK-MB (CK-2) 1.4 ng/mL (0.5-3.6) 01/16/19 14:19 Troponin I < 0.02 ng/ml (0.00-0.05) 01/16/19 14:19 Total Protein 6.8 g/dl (6.4-8.2) 01/16/19 14:19 Albumin 2.5 g/dl (3.4-5.0) L 01/16/19 14:19 Low sodium Elevated Cr Elevated liver enzymes Elevated TBili Tpn undetectable Elevated ammonia MELD score is 31 points, 52.6% estimated 3-month mortality CT and US ordered Patient still tremulous Librium ordered 01/16/19 15:[address] Patient still very diaphoretic and tremulous Another 1mg ativan ordered 01/16/19 16:43 Patient became agitated. He pulled out his IV line once again and started yelling "polizar" in Nepali. He got off his stretcher and started for the nursing area. It took five staff members to restrain the patient. Diphenhydramine, haldol, and ativan drawn and administered IM. Patient placed back in stretcher with soft restraints. Calmer now. Given his level of confusion and agitation, we will consult the ICU. 01/16/19 17:19 CTAP, as read by radiology: "Abdomen and pelvis CT without contrast Clinical information: elevated bilirubin, jaundice Multiplanar imaging was performed. No intravenous or enteric contrast was administered. No prior imaging studies are available at this facility for direct comparison. The liver demonstrates severe diffuse fatty infiltration with associated mild hepatomegaly. No obvious mass lesion is identified on noncontrast imaging. Moderate gallbladder overdistention is seen without definite associated wall edema or pericholecystic fluid accumulation. The gallbladder lumen demonstrates mildly increased attenuation diffusely consistent with inspissated bile/sludge. No definite radiopaque gallbladder calculus is visualized. There is no biliary tract dilatation. The spleen, pancreas, adrenal glands and kidneys demonstrate no discrete noncontrast pathology. No aortic aneurysm is noted. There is no definite lymphadenopathy on the basis of CT size criteria. No evidence of pneumoperitoneum, free intraperitoneal fluid or bowel obstruction. Small to moderate umbilical hernia containing fat only. Bilateral inguinal hernias containing fat only. Small hiatal hernia. There is no obvious pelvic pathology. No CT evidence of acute appendicitis or diverticulitis. There is no gross noncontrast small bowel pathology. Impression: Marked diffuse hepatic steatosis is seen. Moderate gallbladder overdistention is noted with inspissated bile/ sludge within the gallbladder lumen. " 01/16/19 17:[address] Neslon who will evaluate the patient on behalf of the ICU 01/16/19 17:42 Patient came out of his restraint Versed ordered Page to Dr. Madan Rebolledo who is business administration professor for , 01/16/19 17:[address] Rebolledo The patient appears to be in liver failure Dr. Rebolledo agrees with lactulose and ICU admission 01/16/19 18:[address] Perla. She said she will speak with Dr. Rebolledo and will call us back 01/16/19 18:23 Dr. Nelson accepts the patient for the ICU Via microblog from the hospitalist team, the patient will go to the night attending, Dr. Brannon 01/16/19 18:[address] Enriquez who took sign out for the admitting team 01/16/19 18:48 CXR without acute pathology, my impression Patient agitated, pulling at restraints. Pulled out his line. We ordered 4mg ativan which did not calm him. 5mg valium ordered. 01/16/19 19:44 Received call from ICU resident Dr. Nelson. Patient to be put on precedex. Another 10mg valium given IV. 01/16/19 20:03 Precedex discontinued as it was decided not to be the best for acute alcohol withdrawal, though it is indicated in hepatic encephalopathy Patient became further agitated. He pulled out his IV once and pulled at his restraints. Patient started breathing abnormally. As he showed signs further deterioration, decision was made to intubate the patient to protect his airway. We placed an IO in order to obtain access as patient continued to move too much to put in an IV. Patient intubated; please see procedure section. Tube placement verified with ascultation, etco2, and portable xray Placed on propofol for sedation. An 18 gauge IV was placed by me in the left AC. Transported to the ICU 01/16/19 22:04 *DC/Admit/Observation/Transfer Diagnosis at time of Disposition: Confusion, Hyperammonemia, Alcohol withdrawal delirium, acute, hyperactive Acute liver failure Qualifiers: Hepatic coma status: without hepatic coma Qualified Code(s): K72.00 - Acute and subacute hepatic failure without coma - Discharge Dispostion Condition at time of disposition: Guarded Decision to Admit order: Yes - Referrals - Patient Instructions - Post Discharge Activity
[2019-01-16] MEDS ORDERED: SODIUM CHLORIDE 1,000 ML IV STA (13:39)
[2019-01-16 14:27] LABS: HEMATOCRIT 41.2 % (35.4-49); HEMOGLOBIN 14.2 GM/dL (11.7-16.9); MCH 33.6 pg (25.7-33.7); MCHC 34.4 g/dl (32.0-35.9); MEAN CELL VOLUME 97.8 fl (80-96); MEAN PLT VOLUME 11.2 fl (7.5-11.1); PLATELET COUNT 82 K/MM3 (134-434); RBC 4.22 M/mm3 (4.00-5.60); RDW 14.9 % (11.9-15.9); WHITE BLOOD COUNT 8.9 K/mm3 (4.0-10.0)
[2019-01-16 14:34] LABS: INR 1.38 (0.83-1.09); PROTHROMBIN TIME (PATIENT) 16.3 SEC (9.7-13.0)
--- NOTE | 2019-01-16 14:40 | PDOC ---
Attending Attestation - Resident Resident Name: Naida Ritchieth - ED Attending Attestation I have performed the following: I have examined & evaluated the patient, The case was reviewed & discussed with the resident, I agree w/resident's findings & plan, Exceptions are as noted - HPI HPI: IMPORTANT PHONE NUMBERS: VIVEK Mccarthy [phone] LARISA Mccarthy [phone] 01/16/19 14:40 Mr Kang is a 38 yo M with a h/o chronic alcohol abuse (Since age 15) PT admits to drinking 1.5 L Vodka as well as beer daily. Pt state, he sleeps 1 hour then drinks. He has not slept more than 1 hours in weeks Was previously in a Methadone program Pt was admitted to [facility] 2 days ago Labs were drawn yesterday and were notably abnormal He presents to the ER from [facility] due to elevated ammonia level Pt was admitted 2 days ago, detox protocol Pt denies abdominal pain or nausea Pt denies diarrhea He is very clearly jaundiced and is unable to tell me when this began 01/16/19 19:07 01/17/19 09:33 - Physicial Exam PE: 01/16/19 14:40 GENERAL: The patient is tremulous. EYES: icteric sclera ENT: Dry mucous membranes. NECK: Normal range of motion, supple LUNGS: Breath sounds equal, clear to auscultation bilaterally. No wheezes, and no crackles. HEART: Tachycardiac, regular, without murmur, rub or gallop. ABDOMEN: Soft, protuberant EXTREMITIES: Normal range of motion, chronic right 2nd digit deformity NEUROLOGICAL: Cranial nerves II through XII grossly intact. Slurred speech. SKIN: Warm, Dry, normal turgor, no rashes or lesions noted. 01/16/19 14:51 - Critical Care Time Total Critical Care Time: 120 Critical Care Statement: The care of this patient involved high complexity decision making to prevent further life threatening deterioration of the patient 's condition and/or to evaluate & treat vital organ system(s) failure or risk of failure. - Medical Decision Making 01/16/19 14:40 Laboratory Tests 01/16/19 01/16/19 14:19 14:19 INR 1.38 H Ammonia 56.90 H 01/16/19 14:56 EKG: ST rate of 120 bpm, Right axis deviation, no st elevation or depression, t waves upright 01/16/19 15:13 Laboratory Tests 01/16/19 01/16/19 01/16/19 14:19 14:19 14:19 WBC 8.9 Hgb 14.2 Hct 41.2 Plt Count 82 L INR Sodium Potassium Chloride Carbon Dioxide BUN Creatinine Random Glucose Total Bilirubin AST ALT Alkaline Phosphatase Ammonia 56.90 H Creatine Kinase 360 H Troponin I < 0.02 Albumin 01/16/19 01/16/19 14:19 14:19 WBC Hgb Hct Plt Count INR 1.38 H Sodium 128 L Potassium 3.5 Chloride 89 L Carbon Dioxide 30 BUN 11.8 Creatinine 2.0 H Random Glucose 106 Total Bilirubin 15.7 H* AST 389 H ALT 139 H Alkaline Phosphatase 311 H Ammonia Creatine Kinase Troponin I Albumin 2.5 L Ativan ordered Banana bag ordered Lactulose ordered 01/16/19 15:17 01/16/19 17:21 Pt given a total of Librium 50mg po, Ativan 2mg Pt became agitated Pulled out IV Attempted to exit ER Security called Pt given Haldol/Ativan/Benadryl He is an eminent danger to himself Pt restrained Will admit to the ICU 01/16/19 17:54 Clinical impression: SEVERE ALCOHOL WITHDRAWAL DELERIUM TREMENS ALCOHOLIC HEPATITIS 01/16/19 17:59 An additional Versed 2mg IV for agitation with good effect Pt admitted Signed out to admitting team
[2019-01-16] MEDS ORDERED: LACTULOSE 20 GM/30 ML UDC (FOR ORAL USE ONLY) PO ONE (14:43)
[2019-01-16] MEDS ORDERED: FOLIC ACID INJECTION - 1 MG, THIAMINE HCL 100 MG, MULTIVIT INJECTION ADULT 10 ML in SOD... IVPB ONE ×2 (14:43→22:19)
[2019-01-16 14:48] LABS: ALBUMIN 2.5 g/dl (3.4-5.0); BLOOD UREA NITROGEN 11.8 mg/dL (7-18); CALCIUM 8.8 mg/dL (8.5-10.1); POTASSIUM 3.5 mmol/L (3.5-5.1); TOT PROT 6.8 g/dl (6.4-8.2)
[2019-01-16] MEDS ORDERED: LACTULOSE 20 GM/30 ML UDC (FOR ORAL USE ONLY) ONE ×2 (14:57→19:11)
[2019-01-16 14:59] LABS: BILIRUBIN,TOTAL 15.7 mg/dL (0.2-1)
[2019-01-16] MEDS ORDERED: LORazepam 2 MG/ML SDV VIAL ONE ×3 (14:59→17:11)
[2019-01-16] MEDS ORDERED: chlordiazePOXIDE HCL 25 MG CAPSULE PO ONE (15:24)
[2019-01-16] MEDS ORDERED: chlordiazePOXIDE HCL 25 MG CAPSULE ONE (15:40)
[2019-01-16] MEDS ORDERED: HALOPERIDOL LACTATE 5 MG/ML ONE (17:11)
[2019-01-16] MEDS ORDERED: HALOPERIDOL LACTATE 5 MG/ML IM ONE (17:23)
[2019-01-16] MEDS ORDERED: LORazepam 2 MG/ML SDV VIAL IM ONE (17:23)
[2019-01-16] MEDS ORDERED: MIDAZOLAM HCL 2 MG/2 ML SINGLE DOSE VIAL IVPUSH ONE (17:46)
[2019-01-16] MEDS ORDERED: MIDAZOLAM HCL 2 MG/2 ML SINGLE DOSE VIAL ONE ×2 (17:50→19:35)
[2019-01-16 17:59] LABS: ANISOCYTOSIS 1+; MACROCYTOSIS 1+; PLATELET ESTIMATE DECREASED
[2019-01-16] MEDS ORDERED: LACTULOSE 20 GM/30 ML UDC (FOR ORAL USE ONLY) PO SCH (19:00)
--- NOTE | 2019-01-16 19:04 | CON.GI ---
Consult Consult Specialty:: GI Referred by:: Hospitalist Reason for Consultation:: Altered mental status, abnormal liver chemistries - History of Present Illness Chief Complaint: Patient confused and combative. History obtained from family and ER History of Present Illness: 38M who was brought to [facility] by his mother yesterday. He is a chronic alcoholic >20 years and over the last 1-2 weeks, has been drinking much more heavily (2 liters of vodka per day) and beer aas well. Sometimes he would drink all day and his brother in law states that he drinks to help him sleep. While at [facility] yesterday he was noted to have a bilirubin of 13.3. He was noted to be agitated there and on an ativan protocol. Today Bilirubin is 15.7. CT scan performed revealed enlarged liver with marked diffuse hepatic steatosis and sludge filled gallbladder. He lives with his mother. She does not believe that he has been taking tylenol. He has been extremely agitated and uncooperative in the ED requiring multiple ativan doses. He remains agitated. he used to abuse heroin. It is unsure if he still does and is on methadone. HCV Ab was negative in 2017. - History Source History Provided By: Family Member, Medical Record - Past Medical History Cardio/Vascular: Yes: HTN Infectious Disease: Yes: Other (PPD + per the chart) - Past Surgical History Additional Surgical History: None - Alcohol/Substance Use Hx Alcohol Use: Yes - Smoking History Smoking history: Current every day smoker Home Medications - Allergies Allergies/Adverse Reactions: Allergies Allergy/AdvReac Type Severity Reaction Status Date / Time No Known Allergies Allergy Verified 01/16/19 13:29 - Home Medications Home Medications: Ambulatory Orders Methadone [Dolophine -] 120 mg PO DAILY 07/20/18 Amlodipine Besylate [Norvasc -] 10 mg PO DAILY #30 tablet 09/07/18 Methadone [Dolophine -] 120 mg PO DAILY 01/14/19 NK [No Known Home Medication] 01/14/19 Family Disease History - Family Disease History Family Disease History: Diabetes: Mother (Alive), Other: Father (alcohol , ), Sister (2, healthy) Other Family History: No children. No family history of liver disease Review of Systems Unable to obtain ROS, reason: Patient confused Physical Exam-GI Vital Signs: Vital Signs Temperature 97.8 F 09/13/19 18:06 Pulse Rate 138 H 01/16/19 18:06 Respiratory Rate 22 H 01/16/19 18:06 Blood Pressure 107/63 01/16/19 18:06 O2 Sat by Pulse Oximetry (%) 96% 01/16/19 18:06 Constitutional: Yes: Calm, Diaphoresis Eyes: No: Sclera Icterus Cardiovascular: Yes: Tachycardia Respiratory: Yes: Diminished (at bases b/l) Gastrointestinal Inspection: No: Scars ...Auscultate: Yes: Normoactive Bowel Sounds ...Palpate: Yes: Soft. No: Tenderness (No grimacing upon palpation. Limited as he would not cooperate and was tachypnic) ...Percussion: No: Tympanitic Extremities: Yes: Other (right knee ulcer, no fluctuance / purulence) Edema: No (No LE edema) Neurological: Yes: Confusion, Other (Agitation) Labs: CBC, BMP 01/16/19 14:19 01/16/19 14:19 INR, PTT INR 1.38 (0.83-1.09) H 01/16/19 14:19 Imaging - Results Cat Scan: Report Reviewed, Image Reviewed Problem List - Problems (1) Alcoholic hepatitis Assessment/Plan: Suspect alcoholic hepatitis also with alcohol withdrawal. Likely acute on chronic liver disease with acute on chronic decompensation. in review of the [facility] system Discussed the clinical situation with Mr. Kang's family and explained that he is critially ill and that he can from his severe alcoholic liver disese. I advise: ICU admission While there may be component of encephalopathy, it usually does not progress to combativeness and agitation. It progresses to somnolence and coma. Confusion likely largely from alcohol withdrawl. other etiologies will need to be excluded per primary team Check magnesium / phosphorous levels Abdominal US when able Ordered hepatitis A/B serologies as well as hepatitis C antibody Detox evaluation Urinalysis / Urine toxicology Acetaminophen level Supportive measures Aspiration precautions. Low threshold for intubation Thiamine / B12 / Folic acid supplementation Guarded prognosis. Family aware that he is critically ill Code(s): K70.10 - ALCOHOLIC HEPATITIS WITHOUT ASCITES Qualifiers: Ascites presence: without ascites Qualified Code(s): K70.10 - Alcoholic hepatitis without ascites
--- NOTE | 2019-01-16 19:18 | PN ---
Teaching Attending Note Name of Resident: Christian Ruffin ATTENDING PHYSICIAN STATEMENT I saw and evaluated the patient. I reviewed the resident's note and discussed the case with the resident. I agree with the resident's findings and plan as documented. SUBJECTIVE: Patient is a 38 year old man with PMH of HTN, Alcohol use (1.5 pints of vodka daily), ?Alcohol withdrawal seizures, Heroin and Opiate abuse, Depression, Anxiety and Tobacco use sent by [facility] for evaluation of elevated ammonia and possible hepatic encephalopathy. Per their note, they report the patient is "alert, confused at times, with tachycardia and tremor" and morning labs showed an elevated ammonia (59.6). States he has had alcohol withdrawals seizures in the past, but cannot say when the most recent one was. He has tangential speech and seems confused. History limited due to patient's confusion. Was agitated in the ER and has received multiple doses of sedatives including valium, librium, versed, haldol and benadryl. OBJECTIVE: Agitated Vital Signs Period Temp Pulse Resp BP Sys/Phipps Pulse Ox Last 24 Hr 97.8 F-98.9 F 119-128 20-32 107-131/70-86 95-99 HEENT: +Scleral Jaundice, eye redness or discharge, PERRLA, EOMI. Normocephalic , atraumatic. External ears are normal and hearing is grossly intact. No nasal discharge. Neck: Supple, nontender. No palpable adenopathy or thyromegaly. No JVD Chest: Good effort. Clear to auscultation and percussion. Heart: Sinus tachycardia. No S3, rub or murmur Abdomen: Distended, soft, nontender and no HSM. No rebound or guarding. Normal bowel sounds. Ext: Peripheral pulses intact. No leg edema. Skin: Warm and dry. No petechiae, rash or ecchymosis. Neuro: Agitated. Moving all limbs. Psych: Unable to assess. Current Medications Generic Name Dose Route Start Last Admin Trade Name Freq PRN Reason Stop Dose Admin Chlorhexidine Gluconate 1 applic 01/16/19 22:00 Hibiclens For Decolonization - TP HS MIESHA Folic Acid 1 mg 01/17/19 10:00 Folic Acid - PO DAILY MIESHA Sodium Chloride 1,000 mls @ 125 mls/hr 01/16/19 13:39 01/16/19 14:14 Normal Saline - IV 01/16/19 21:38 125 mls/hr ASDIR STA Administration Folic Acid 1 mg/ Thiamine HCl 1,000 mls @ 125 mls/hr 01/16/19 14:43 01/16/19 17:00 100 mg/ Multivitamins/Minerals IVPB 01/16/19 22:42 125 mls/hr 10 ml/ Sodium Chloride ONCE ONE Administration Dexmedetomidine HCl 200 mcg/ 50 mls @ 4.53 mls/hr 01/16/19 20:00 Sodium Chloride IVPB 01/17/19 19:59 TITR MIESHA Protocol 0.2 MCG/KG/HR Lactulose 30 gm 01/16/19 19:00 01/16/19 19:14 Cephulac (Oral Use) PO 30 gm TID MIESHA Administration Mupirocin 1 applic 01/16/19 22:00 Bactroban Ointment (For Decolonization) - NS 01/21/19 21:59 BID MIESHA Rifaximin 550 mg 01/16/19 19:01 Xifaxan - PO BID MIESHA Thiamine HCl 100 mg 01/17/19 10:00 Vitamin B1 - PO DAILY [facility] Home Medications Medication Instructions Recorded Methadone [Dolophine -] 120 mg PO DAILY 07/20/18 Amlodipine Besylate [Norvasc -] 10 mg PO DAILY #30 tablet 09/07/18 Methadone [Dolophine -] 120 mg PO DAILY 01/14/19 NK [No Known Home Medication] 01/14/19 Abnormal Lab Results 01/16/19 01/16/19 01/16/19 14:19 14:19 14:19 MCV 97.8 H Plt Count 82 L MPV 11.2 H Nucleated RBC % 1 H PT with INR INR Sodium Chloride Creatinine Total Bilirubin AST ALT Alkaline Phosphatase Ammonia 56.90 H Creatine Kinase 360 H Albumin 01/16/19 01/16/19 14:19 14:19 MCV Plt Count MPV Nucleated RBC % PT with INR 16.30 H INR 1.38 H Sodium 128 L Chloride 89 L Creatinine 2.0 H Total Bilirubin 15.7 H* AST 389 H ALT 139 H Alkaline Phosphatase 311 H Ammonia Creatine Kinase Albumin 2.5 L ASSESSMENT AND PLAN: 1. Acute hepatic encephalopathy?/Alcohol withdrawal syndrome - Patient is being intubated in the ER and sedation for alcohol withdrawal with Propofol. Being transferred to the ICU. Will get lactulose per rectum, rifaximin and mannitol empirically. Will implement [facility] alcohol withdrawal protocol and do neurochecks. Implement seizure, fall and aspiration precautions. Treat with thiamine and folic acid and monitor electrolytes (Ca,Mg,K,P). Counseled patient about abstaining from alcohol. Will consult client experience specialist and refer to alcohol detox upon discharge. Low platelet count and hyponatremia likely sequelae of chronic liver disease. Will restrict free water intake and monitor platelets and sodium daily. Sepsis workup done. EKG pending. Will continue comprehensive care of all his/her comorbid conditions. 2. Hypoalbuminemia - Possibly due to combined effects of malnutrition and inflammation associated with comorbid chronic conditions. Will ensure adequate dietary protein intake and also consult medical driver. 3. Tobacco Use Counseled on risks associated with tobacco use. We will provide patient all the necessary assistance to facilitate smoking cessation and prescribe Nicotine patch. 4. DAMIAN - Cause unclear. May have a component of hepatorenal syndrome. Will get urinalysis, hydrate and monitor urine output. NO evidence of urinary outlet obstruction on abdomen/pelvis CT. Will consult nephrology and avoid nephrotoxic agents such as NSAIDS, aminoglycosides, contrast dyes and certain Alternative medicine products. 5. Obesity When clinically stable, will financial services counselor patient on the risks associated with obesity. Will provide patient all the necessary assistance, counseling and positive reinforcement to facilitate weight loss. Consult medical driver. 6. Hypertension - Will hold outpatient antihypertensive drugs for now and restart when clinically appropriate. Revise regimen to ensure [id number] excellent BP control and financial services counselor patient on the injurious effects of uncontrolled hypertension. Nonpharmacologic measures to control hypertension like weight loss, salt restriction and exercise discussed. Importance of adherence to treatment regimen and attainment of normotension will be emphasized when he is stable. 7. DVT prophylaxis - Heparin 5000u sq bid. 8. Advance directives - Full code
[2019-01-16] MEDS ORDERED: LORazepam 2 MG/ML SDV VIAL IVPUSH SCH ×2 (19:45→21:00)
[2019-01-16] MEDS ORDERED: diazePAM CARPU-JECT 10 MG/2 ML DISP.SYRIN ONE ×4 (19:45→20:31)
[2019-01-16] MEDS ORDERED: diazePAM CARPU-JECT 10 MG/2 ML DISP.SYRIN IVPUSH ONE ×4 (19:46→20:30)
--- NOTE | 2019-01-16 19:52 | CONSULT ---
Consultation: REQUESTING PROVIDER: CONSULT REQUEST: We have been asked to medically evaluate this patient for alcohol withdrawal, hepatic encephalopathy. HISTORY OF PRESENT ILLNESS: 38 y/o M with PMH HTN, alcohol withdrawal sz (1.5 pints vodka daily), opiates ( on methadone), who initially presented to [facility] for alcohol detox yesterday on 01/15/19. While there, pt was found to have a CIWA of 12 and was started on ativan protocol. This AM, while there, he became restless, tachycardic to 141bpm. Labs revealed tbili 15.3, AST 418, ALT 144, ALP 329, and ammonia 59 with concern of hepatic encephalopathy, thus he was sent to [facility] ED for further w /u. While in ER, he c/o constant abdominal pain, past NBNB emesis and was agitated. Pt drinks 1.5 bottles of vodka daily for the past 20 yrs. CIWA was 19 severe withdrawal on exam. During this time, he was given librium 50x1, multiple rounds of valium, versed, ativan by ER staff. As pt was still agitated with tachycardia, tachypnea pt was intubated in the ER for airway protection ( using taylor, and transferred to ICU. He is on propofol gtt. Pt is admitted to ICU for severe alcohol withdrawal, with acute respiratory failure likely 2/2 DT's. REVIEW OF SYSTEMS: +restless +abdominal pain +N/V PHYSICAL EXAMINATION on exam: CIWA 19 +vented, on propofol gtt +IO: LLE; placed in ER 01/16/19 +joyce Vital Signs - 24 hr 01/16/19 01/16/19 01/16/19 15:00 17:02 18:06 Temperature 98.9 F 97.8 F Pulse Rate Pulse Rate [ 123 H 128 H 128 H Apical] Respiratory 30 H 25 H 22 H Rate Blood Pressure Blood Pressure 111/86 111/81 131/79 [Left Arm] O2 Sat by Pulse 97 99 99 Oximetry (%) GENERAL: +diaphoretic. restless, in moderate distress HEAD: Normal with no signs of trauma. EYES: Pupils equal, round and reactive to light, extraocular movements intact, + sclera icteric EARS, NOSE, THROAT: Ears normal, nares patent, oropharynx clear without exudates. Moist mucous membranes. NECK: Normal range of motion, supple LUNGS: Breath sounds equal, clear to auscultation bilaterally. No wheezes, and no crackles. No accessory muscle use. HEART: +tachycardic rate and rhythm, normal S1 and S2 without murmur, rub or gallop. ABDOMEN: Soft, obese, distended. without fluid wave LOWER EXTREMITIES: 2+ pt pulses, warm, well-perfused. No calf tenderness. No peripheral edema. NEUROLOGICAL: able to move UE, LE and converse . however tangential. PSYCHIATRIC: +tangential thinking. visual hallucinations Laboratory Results 01/16/19 01/16/19 01/16/19 14:19 14:19 14:19 WBC 8.9 Hgb 14.2 Hct 41.2 Plt Count 82 L PT with INR Total Bilirubin Alkaline Phosphatase Ammonia 56.90 H Troponin I < 0.02 Albumin 01/16/19 01/16/19 01/16/19 14:19 14:19 21:21 WBC Plt Count PT with INR 16.30 H INR 1.38 H Sodium 128 L Potassium 3.5 Chloride 89 L BUN 11.8 Creatinine 2.0 H Lactic Acid Pending Total Bilirubin 15.7 H* AST 389 H ALT 139 H Alkaline Phosphatase 311 H Ammonia Troponin I Albumin 2.5 L EKG: +sinus tach at 120bpm, R axis dev CTAP w/o cont: marked diffuse hepatic steatosis, moderate GB overdistension with inspissated bile / sludge within the gallbladder lumen. no evidence of pneumoperitoneum, free intraperitoneal fluid or bowel obstruction. no biliary duct dilation. small to moderate umbilical hernia with fat only. bilateral inguinal hernias with fat only. small hiatal hernia. ASSESSMENT/PLAN: 38 y/o M with PMH HTN, alcohol withdrawal sz (1.5 pints vodka daily), opiates ( on methadone), who initially presented to [facility] for alcohol detox yesterday on 01/15/19. Pt is admitted to ICU for severe alcohol withdrawal, with acute respiratory failure likely 2/2 DT's. Neuro #Acute alcohol withdrawal #DT's -initial CIWA 19 -sedated; currently on propofol gtt -c/w banana bag, IV LR 100 cc/hr, thiamine, folate -f/u lytes -can transition to ativan PRN once off sedation and extubated Pulm #Acute respiratory failure 2/2 likely Alcohol DT's -pt was tachypneic, unable to protect airway -c/w vent: currently on a/c 500 TV/ rate 12/ 100% 02/ Peep5 -f/u ABG. CXR in AM GI #Acute liver failure #Likely alcoholic hepatitis #Hepatic encephalopathy -will c/w lactulose, rifaximin -f/u hepatitis serologies, acetaminophen level, utox, HIV to r/o alternate etiologies -fractionate bili. elevated t bili , transaminitis likely 2/2 alcohol hepatitis -[facility] Discriminant function : 35.5. Pt may benefit from glucocorticoids once any source of infection r/o -f/u abd sono Renal #DAMIAN (Cr baseline 1.2) -c/w IVF . also possible 2/2 hepatorenal as pt acute liver failure, w/ likely cirrhosis -can send lytes in AM if needed #Hyponatremia likely 2/2 hypervolemic, cirrhosis -c/t monitor Heme #Thrombocytopenia likely 2/2 cirrhosis -possible pt has splenic sequestration- can do abd sono and check for splenomegaly. may have portal HTN -hold a/c for now ID -will r/o any source of infection. currently not febrile, w/o white count -f/u blood, ucx, UA, lactic, CXR, lactic #F/E/N IV LR 100 cc/hr continue to follow lytes NPO #PPX SCD's; as w/ thrombocytopenia #Dispo admitted to ICU Dispo: We will continue to follow the patient. Thank you for this consultative opportunity. Visit type - Emergency Visit Emergency Visit: Yes ED Registration Date: 01/16/19 Care time: The patient presented to the Emergency Department on the above date and was hospitalized for further evaluation of their emergent condition. - New Patient This patient is new to me today: Yes Date on this admission: 01/16/19 - Critical Care Critical Care patient: Yes Total Critical Care Time (in minutes): 45 Critical Care Statement: The care of this patient involved high complexity decision making to prevent further life threatening deterioration of the patient 's condition and/or to evaluate & treat vital organ system(s) failure or risk of failure.
[2019-01-16] MEDS ORDERED: DEXMEDETOMIDINE HCL 200 MCG in SODIUM CHLORIDE 48 ML IVPB SCH (20:00)
[2019-01-16] MEDS ORDERED: diazePAM CARPU-JECT 10 MG/2 ML DISP.SYRIN IM ONE (20:05)
[2019-01-16] MEDS ORDERED: SODIUM CHLORIDE 0.9% 500 ML INFUS.BAG IV ONE (20:07)
[2019-01-16] MEDS: RIFAXIMIN 550 MG TABLET (UD) PO SCH ×2 (20:16→23:18)
--- NOTE | 2019-01-16 20:21 | PDOC ---
*Physical Exam - Vital Signs Last Vital Signs Temp Pulse Resp BP Pulse Ox 98.6 F 129 H 18 145/94 99 01/16/19 18:53 01/16/19 18:53 01/16/19 18:53 01/16/19 18:53 01/16/19 18:06 ED Treatment Course - LABORATORY CBC & Chemistry Diagram: 01/16/19 14:19 01/16/19 14:19 - ADDITIONAL ORDERS Additional order review: Laboratory Results 01/16/19 01/16/19 01/16/19 14:19 14:19 14:19 PT with INR 16.30 H INR 1.38 H Sodium 128 L Potassium 3.5 Chloride 89 L Carbon Dioxide 30 Anion Gap 9 BUN 11.8 Creatinine 2.0 H Est GFR (CKD-EPI)AfAm 47.65 Est GFR (CKD-EPI)NonAf 41.12 Random Glucose 106 Calcium 8.8 Total Bilirubin 15.7 H* AST 389 H ALT 139 H Alkaline Phosphatase 311 H Ammonia Creatine Kinase Creatine Kinase Index CK-MB (CK-2) Troponin I Total Protein 6.8 Albumin 2.5 L Blood Type A NEGATIVE Antibody Screen Negative 01/16/19 01/16/19 14:19 14:19 PT with INR INR Sodium Potassium Chloride Carbon Dioxide Anion Gap BUN Creatinine Est GFR (CKD-EPI)AfAm Est GFR (CKD-EPI)NonAf Random Glucose Calcium Total Bilirubin AST ALT Alkaline Phosphatase Ammonia 56.90 H Creatine Kinase 360 H Creatine Kinase Index 0.3 CK-MB (CK-2) 1.4 Troponin I < 0.02 Total Protein Albumin Blood Type Antibody Screen 01/16/19 14:19 RBC 4.22 MCV 97.8 H MCHC 34.4 RDW 14.9 MPV 11.2 H Neutrophils % No Result Required. Lymphocytes % No Result Required. - Medications Given in the ED: ED Medications Discontinued Medications Generic Name Dose Route Start Last Admin Trade Name Freq PRN Reason Stop Dose Admin Chlordiazepoxide HCl 50 mg 01/16/19 15:24 01/16/19 15:41 Librium - PO 01/16/19 15:25 50 mg ONCE ONE Administration Diazepam 5 mg 01/16/19 19:46 01/16/19 19:55 Valium Injection - IVPUSH 01/16/19 19:47 5 mg ONCE ONE Administration Diazepam 10 mg 01/16/19 20:03 01/16/19 20:05 Valium Injection - IVPUSH 01/16/19 20:04 10 mg ONCE ONE Administration Diazepam 5 mg 01/16/19 20:05 01/16/19 19:55 Valium Injection - IM 01/16/19 20:06 5 mg ONCE ONE Administration Diphenhydramine HCl 50 mg 01/16/19 17:22 01/16/19 17:25 Benadryl Injection - IM 01/16/19 17:23 50 mg ONCE ONE Administration Haloperidol 5 mg 01/16/19 17:23 01/16/19 17:25 Haldol Injection (Fast Acting) - IM 01/16/19 17:24 5 mg ONCE ONE Administration Lactulose 20 gm 01/16/19 14:43 01/16/19 14:57 Cephulac (Oral Use) PO 01/16/19 14:44 20 gm ONCE ONE Administration Lactulose 30 gm 01/16/19 19:00 01/16/19 19:14 Cephulac (Oral Use) PO 30 gm TID MIESHA Administration Lorazepam 1 mg 01/16/19 14:43 01/16/19 15:19 Ativan Injection - IVPUSH 01/16/19 14:44 1 mg ONCE ONE Administration Lorazepam 1 mg 01/16/19 16:42 01/16/19 17:00 Ativan Injection - IVPUSH 01/16/19 16:43 1 mg ONCE ONE Administration Lorazepam 2 mg 01/16/19 17:23 01/16/19 17:25 Ativan Injection - IM 01/16/19 17:24 2 mg ONCE ONE Administration Lorazepam 4 mg 01/16/19 19:38 01/16/19 19:41 Ativan Injection - IVPUSH 01/16/19 19:39 4 mg ONCE ONE Administration Midazolam HCl 2 mg 01/16/19 17:46 01/16/19 18:00 Versed - IVPUSH 01/16/19 17:47 2 mg ONCE ONE Administration Medical Decision Making - Critical Care Time Total Critical Care Time (minutes): 90 Critical Care Statement: The care of this patient involved high complexity decision making to prevent further life threatening deterioration of the patient 's condition and/or to evaluate & treat vital organ system(s) failure or risk of failure. - Medical Decision Making 01/16/19 20:18 ICU docs not available; I called earlier; they may be busy in the ICU. Pt in severe withdrawal. He pilled his IV in the struggle; new IV placed; 5mg IM diazepam given at 8P; followed by IV placement and 5mg IV diazepam. At that time BP was 134/70s; IV NSS 1L begun. Another 5mg IV diazepam. Pt is on NRB O2; another 5mg IVP given at 8:20PM. Recomendation is 5-10mg IV diazepam q 5 -10 monutes. 01/16/19 20:20 ICU resident is at bedside at this time. I will defer management to them. 01/16/19 21:31 Unable to leave bedside, as pt was endorsed to the ICU team at change of shift, so they are as unaware as I am. As a result, we will continue to manage patient in the ER. Pt received 40mg of valium in the ER IVP (and 5mg IM) Pt's breathing was unstable, though he had O2100% on NRB; he was clearly unable to protect his airway. Decision to intubate and keep sedated with propofol, as pt's HR continues to be high as well as his BP. Additionally, pt was given 50mg taylor and 20mg etomidate for RSI; additional 50mg rocuronium was giiven at 9:15; porpofol drip is running as is the IVF saline. 01/16/19 21:42 Pt continues to be tachycardic. He has a BP of 138/90 and EKG shows sinus tach. 01/16/19 21:43 Repeat CPK and complete chem panel sent. Repeat lactic acid sent. *DC/Admit/Observation/Transfer Diagnosis at time of Disposition: Confusion, Hyperammonemia, Alcohol withdrawal delirium, acute, hyperactive Acute liver failure Qualifiers: Hepatic coma status: without hepatic coma Qualified Code(s): K72.00 - Acute and subacute hepatic failure without coma - Discharge Dispostion Condition at time of disposition: Guarded - Referrals - Patient Instructions - Post Discharge Activity
[2019-01-16] MEDS ORDERED: diazePAM CARPU-JECT 10 MG/2 ML DISP.SYRIN IVPUSH PRN (20:25)
[2019-01-16] MEDS ORDERED: LORazepam 2 MG/ML SDV VIAL IVPUSH PRN (20:34)
[2019-01-16] MEDS ORDERED: PROPOFOL 1,000,000 MCG/100 ML VIAL ONE (20:50)
[2019-01-16] MEDS ORDERED: RAPID SEQUENCE INTUBATION KIT NR ONE ×2 (20:50→21:02)
[2019-01-16] MEDS ORDERED: ETOMIDATE 40 MG/20 ML VIAL IVPUSH ONE (21:10)
[2019-01-16] MEDS ORDERED: PROPOFOL 200 MG/20 ML VIAL IVPUSH ONE (21:10)
[2019-01-16] MEDS ORDERED: ROCURONIUM BROMIDE 50 MG/5 ML VIAL IV ONE ×2 (21:10→21:15)
[2019-01-16] MEDS ORDERED: PROPOFOL 1,000,000 MCG/100 ML VIAL IVPB SCH (21:15)
--- NOTE | 2019-01-16 21:51 | HP ---
CHIEF COMPLAINT: alcohol withdrawals PCP: none HISTORY OF PRESENT ILLNESS: Limited history due to patient's mental status Patient is a 38 yo M with a PMhx of Alcohol use disorder, seizures (from withdrawals), opiates (on methadone), who presented to the ER from [facility] because of altered mental status, confusion, tremors and an elevated ammonia level. Patient was found to have a CIWA of 19 in the ED. At [facility], patient had a CIWA of 12 and was started on ativan protocol. This morning, patient became restless, tachycardic and HR in the 140's. Labs at [facility] revealed T. bili of 15.3, AST 418, ALT 144, and ammonia of 59, with concerns of hepatic encephalopathy. In the ER patient became increasingly agitated, combative with worsening tremos. Patient was given librium, versed, multiple rounds of ativan and valium. Patient was then intubated for airway protection and started on a propofol drip. EKG: +sinus tach at 120bpm, R axis dev CTAP w/o cont: marked diffuse hepatic steatosis, moderate GB overdistension with inspissated bile / sludge within the gallbladder lumen. no evidence of pneumoperitoneum, free intraperitoneal fluid or bowel obstruction. no biliary duct dilation. small to moderate umbilical hernia with fat only. bilateral inguinal hernias with fat only. small hiatal hernia. Family History: Allergies No Known Allergies Allergy (Verified 01/16/19 13:29) HOME MEDICATIONS: Home Medications Medication Instructions Recorded Methadone [Dolophine -] 120 mg PO DAILY 07/20/18 Amlodipine Besylate [Norvasc -] 10 mg PO DAILY #30 tablet 09/07/18 Methadone [Dolophine -] 120 mg PO DAILY 01/14/19 NK [No Known Home Medication] 01/14/19 REVIEW OF SYSTEMS unable to obtain PHYSICAL EXAMINATION Vital Signs - 24 hr 01/16/19 01/16/19 01/16/19 13:32 13:39 14:20 Temperature 98.2 F 97.9 F Pulse Rate 121 H Pulse Rate [ 123 H 119 H Apical] Pulse Rate [ Left Radial] Respiratory 32 H 20 28 H Rate Blood Pressure 107/72 Blood Pressure 117/70 122/75 [Left Arm] Blood Pressure [Right Arm] O2 Sat by Pulse 95 99 95 Oximetry (%) 01/16/19 01/16/19 01/16/19 15:00 17:02 18:06 Temperature 98.9 F 97.8 F Pulse Rate Pulse Rate [ 123 H 128 H 128 H Apical] Pulse Rate [ Left Radial] Respiratory 30 H 25 H 22 H Rate Blood Pressure Blood Pressure 111/86 111/81 131/79 [Left Arm] Blood Pressure [Right Arm] O2 Sat by Pulse 97 99 99 Oximetry (%) 01/16/19 01/16/19 01/16/19 18:30 18:53 19:30 Temperature 98.6 F Pulse Rate Pulse Rate [ 129 H 145 H Apical] Pulse Rate [ Left Radial] Respiratory 18 Rate Blood Pressure Blood Pressure 107/65 145/94 145/94 [Left Arm] Blood Pressure [Right Arm] O2 Sat by Pulse Oximetry (%) 01/16/19 01/16/19 01/16/19 20:00 20:30 21:00 Temperature Pulse Rate Pulse Rate [ 134 H Apical] Pulse Rate [ 151 H Left Radial] Respiratory 14 Rate Blood Pressure Blood Pressure 175/150 H [Left Arm] Blood Pressure 168/15 L 178/122 H [Right Arm] O2 Sat by Pulse 100 Oximetry (%) 01/16/19 21:18 Temperature Pulse Rate Pulse Rate [ Apical] Pulse Rate [ 160 H Left Radial] Respiratory 13 Rate Blood Pressure Blood Pressure [Left Arm] Blood Pressure 136/84 [Right Arm] O2 Sat by Pulse 95 Oximetry (%) Limited due to patient very agitated and combative. CIWA 19 GENERAL: agitated, combative, tremulous Eyes: scleral icterus LUNGS: decreased breath sounds HEART: tachycardic ABDOMEN: distended abdomen, +BS LOWER EXTREMITIES: No peripheral edema. Laboratory Results - last 24 hr 01/16/19 01/16/19 01/16/19 14:19 14:19 14:19 WBC 8.9 RBC 4.22 Hgb 14.2 Hct 41.2 MCV 97.8 H MCH 33.6 MCHC 34.4 RDW 14.9 Plt Count 82 L MPV 11.2 H Absolute Neuts (auto) 6.7 Neutrophils % No Result Required. Neutrophils % (Manual) 75.8 Band Neutrophils % 0.0 Lymphocytes % No Result Required. Lymphocytes % (Manual) 13.2 Monocytes % (Manual) 8 Eosinophils % (Manual) 0.0 Basophils % (Manual) 1.1 Myelocytes % (Man) 0 Promyelocytes % (Man) 0 Blast Cells % (Manual) 0 Nucleated RBC % 1 H Metamyelocytes 0 Hypochromia 0 Platelet Estimate Decreased Polychromasia 1+ Poikilocytosis 0 Anisocytosis 1+ Microcytosis 0 Macrocytosis 1+ PT with INR INR Sodium Potassium Chloride Carbon Dioxide Anion Gap BUN Creatinine Est GFR (CKD-EPI)AfAm Est GFR (CKD-EPI)NonAf Random Glucose Calcium Total Bilirubin AST ALT Alkaline Phosphatase Ammonia 56.90 H Creatine Kinase 360 H Creatine Kinase Index 0.3 CK-MB (CK-2) 1.4 Troponin I < 0.02 Total Protein Albumin Blood Type Antibody Screen 01/16/19 01/16/19 01/16/19 14:19 14:19 14:19 WBC RBC Hgb Hct MCV MCH MCHC RDW Plt Count MPV Absolute Neuts (auto) Neutrophils % Neutrophils % (Manual) Band Neutrophils % Lymphocytes % Lymphocytes % (Manual) Monocytes % (Manual) Eosinophils % (Manual) Basophils % (Manual) Myelocytes % (Man) Promyelocytes % (Man) Blast Cells % (Manual) Nucleated RBC % Metamyelocytes Hypochromia Platelet Estimate Polychromasia Poikilocytosis Anisocytosis Microcytosis Macrocytosis PT with INR 16.30 H INR 1.38 H Sodium 128 L Potassium 3.5 Chloride 89 L Carbon Dioxide 30 Anion Gap 9 BUN 11.8 Creatinine 2.0 H Est GFR (CKD-EPI)AfAm 47.65 Est GFR (CKD-EPI)NonAf 41.12 Random Glucose 106 Calcium 8.8 Total Bilirubin 15.7 H* AST 389 H ALT 139 H Alkaline Phosphatase 311 H Ammonia Creatine Kinase Creatine Kinase Index CK-MB (CK-2) Troponin I Total Protein 6.8 Albumin 2.5 L Blood Type A NEGATIVE Antibody Screen Negative ASSESSMENT/PLAN: 38 y/o M with PMH HTN, alcohol withdrawal sz (1.5 pints vodka daily), opiates ( on methadone), who initially presented to [facility] for alcohol detox yesterday on 01/15/19. Pt is admitted to ICU for severe alcohol withdrawal, with acute respiratory failure likely 2/2 DT's. #Acute Alcohol withdrawals/Delerium Tremors -patient no intubated, sedated on propofol -CIWA 19 -banana bag, thiamine, folate #Acute on Chronic Liver disease/Hepatic encephalopathy/Alcoholic hepatitis -start lactulose -f/u hepatitis panel, utox, HIV -fractionate bili. elevated t bili -f/u Abd U/S -Discriminant function score: 35. Can consider starting steroids once infectious source r/o #DAMIAN -baseline 1.2 -IVF -consider lytes in AM if needed #Hyponatremia -sodium 128 -likely from cirrhosis -monitor sodium #Thrombocytopenia -likely from liver dz -no signs of bleeding at this time #DVT -held because of thrombocytopenia -scds ICU admission Visit type - Emergency Visit Emergency Visit: Yes ED Registration Date: 01/16/19 Care time: The patient presented to the Emergency Department on the above date and was hospitalized for further evaluation of their emergent condition. - New Patient This patient is new to me today: Yes Date on this admission: 01/18/19 - Critical Care Critical Care patient: Yes Total Critical Care Time (in minutes): 45 Critical Care Statement: The care of this patient involved high complexity decision making to prevent further life threatening deterioration of the patient 's condition and/or to evaluate & treat vital organ system(s) failure or risk of failure. ATTENDING PHYSICIAN STATEMENT I saw and evaluated the patient. I reviewed the resident's note and discussed the case with the resident. I agree with the resident's findings and plan as documented. SUBJECTIVE: OBJECTIVE: ASSESSMENT AND PLAN:
[2019-01-16 22:27] LABS: COCAINE, UR NEGATIVE ng/ml (CUTOFF=300); OPIATES, URI NEGATIVE ng/ml (CUTOFF=300); PHENCYCLIDINE,URINE NEGATIVE ng/ml (CUTOFF=25); URINE AMPHETAMINES NEGATIVE ng/ml (CUTOFF=500); URINE BARBITURATES NEGATIVE ng/ml (CUTOFF=200)
[2019-01-16 22:30] LABS: METHADONE, UR POSITIVE ng/ml (CUTOFF=300); URINE BENZODIAZEPINES POSITIVE ng/ml (CUTOFF=200)
[2019-01-16 22:30] LABS: ALBUMIN 2.6 g/dl (3.4-5.0); BLOOD UREA NITROGEN 13.1 mg/dL (7-18); CALCIUM 8.5 mg/dL (8.5-10.1); CREATININE 1.8 mg/dL (0.55-1.3); TOT PROT 6.9 g/dl (6.4-8.2)
[2019-01-16] MEDS ORDERED: SODIUM CHLORIDE 1,000 ML IV SCH (22:30)
[2019-01-16 22:31] LABS: POTASSIUM 3.5 mmol/L (3.5-5.1)
[2019-01-16] MEDS: MUPIROCIN 2% TOPICAL OINTMENT FOR DECOLONIZATION NS SCH (23:17)
[2019-01-16] MEDS: CHLORHEXIDINE GLUCONATE 4% CLEANSER FOR DECOLONIZATION TP SCH (23:18)
[2019-01-16] MEDS: LACTULOSE 20 GM/30 ML UDC (FOR RECTAL USE ONLY) PR SCH (23:18)
[2019-01-16] MEDS: LACTATED RINGERS SOLUTION 1,000 ML/1,000 ML INFUS.BAG IV SCH (23:19)
[2019-01-17 00:04] LABS: ARTERIAL BLD GAS O2 SATURATION 98.8 % (95-98); ARTERIAL BLOOD GAS BASE EXCESS -0.9 meq/l (-2-2); ARTERIAL BLOOD GAS PCO2 52.2 mmHg (35-45); ARTERIAL BLOOD GAS PO2 169 mmHg (80-100); ARTERIAL BLOOD GAS pH 7.31 (7.35-7.45)
[2019-01-17 00:05] LABS: ALLENS TEST POSITIVE
[2019-01-17 00:28] LABS: URINE APPEARANCE TURBID; URINE BILIRUBIN LARGE (NEGATIVE); URINE COLOR ORANGE; URINE GLUCOSE (UA) NEGATIVE (NEGATIVE); URINE KETONE NEGATIVE (NEGATIVE)
[2019-01-17 00:29] LABS: EPI CELLS 4.5 /HPF (0-5/HPF); HYALINE CASTS 354.38 /lpf (0-8); PH,URINE 5.5 (5.0-8.0); URINE BACTERIA 0.8 /hpf (NEGATIVE); URINE LEUK ESTERASE 1+ (NEGATIVE); URINE NITRITE POSITIVE (NEGATIVE); URINE PROTEIN 30 (NEGATIVE); URINE RBC 2.9 /hpf (0-4); URINE WBC 146.3 /hpf (0-5)
[2019-01-17] MEDS ORDERED: LORazepam 2 MG/ML SDV VIAL IVPUSH ONE (01:53)
[2019-01-17] MEDS: PROPOFOL 1,000,000 MCG/100 ML VIAL IVPB SCH (06:56)
[2019-01-17] MEDS ORDERED: MIDAZOLAM HCL 5 MG/1 ML Single Dose Vial IVPUSH ONE (07:13)
[2019-01-17] MEDS ORDERED: fentaNYL CITRATE/PF 1,000 MCG/20 ML AMPUL IVPUSH ONE (07:14)
[2019-01-17] MEDS ORDERED: MIDAZOLAM 100 MG in SODIUM CHLORIDE 100 ML IVPB SCH (07:15)
[2019-01-17] MEDS ORDERED: SODIUM CHLORIDE 1,000 ML IV STA (07:15)
[2019-01-17] MEDS ORDERED: MIDAZOLAM HCL 5 MG/1 ML Single Dose Vial ONE (07:25)
[2019-01-17 07:52] LABS: BASO % 1.6 % (0-2.0); EOS % 1.2 % (0-4.5); HEMATOCRIT 37.1 % (35.4-49); HEMOGLOBIN 12.6 GM/dL (11.7-16.9); LYMPH % 30.7 % (8-40); MCH 33.9 pg (25.7-33.7); MEAN CELL VOLUME 99.6 fl (80-96); MONO % 7.6 % (3.8-10.2); NEUT % 58.9 % (42.8-82.8); PLATELET COUNT 76 K/MM3 (134-434); RBC 3.72 M/mm3 (4.00-5.60); WHITE BLOOD COUNT 9.6 K/mm3 (4.0-10.0)
[2019-01-17] MEDS ORDERED: fentaNYL CITRATE 250 MCG/5 ML VIAL ONE ×4 (07:55→23:36)
[2019-01-17] MEDS: FENTANYL INJECTION 500 MCG in DEXTROSE 5%-WATER - 90 ML IVPB SCH ×2 (08:08→19:01)
[2019-01-17 08:12] LABS: INR 1.31 (0.83-1.09); PROTHROMBIN TIME (PATIENT) 15.5 SEC (9.7-13.0)
[2019-01-17 08:14] LABS: ACTIVATED PTT 35.1 SECONDS (25.2-36.5)
[2019-01-17 08:38] LABS: ALBUMIN 2.1 g/dl (3.4-5.0); BILIRUBIN,DIRECT 13.2 mg/dL (0.0-0.2); BLOOD UREA NITROGEN 12.6 mg/dL (7-18); CALCIUM 7.7 mg/dL (8.5-10.1); CREATININE 1.3 mg/dL (0.55-1.3); POTASSIUM 3.5 mmol/L (3.5-5.1); TOT PROT 5.7 g/dl (6.4-8.2)
--- NOTE | 2019-01-17 08:38 | PN ---
Progress Note (short form) - Note Progress Note: Patient is in ICU, intubated sedated. Vital Signs Temperature 99.9 F H 01/17/19 03:00 Pulse Rate 104 H 01/17/19 04:00 Respiratory Rate 30 H 01/17/19 04:57 Blood Pressure 106/64 01/17/19 04:00 O2 Sat by Pulse Oximetry (%) 100 01/17/19 01:00 GENERAL: The patient is intubated ,sedated . NECK: Trachea midline, full range of motion, supple. LUNGS: intubated, decreased Breath sounds at the basis. no wheezes, no crackles , no accessory muscle use. HEART: sinus tachycardia, S1, S2 positive. ABDOMEN: Soft, distended, positive for BS. EXTREMITIES: 2+ pulses, warm, well-perfused, no edema. NEUROLOGICAL: unable to assess SKIN: Warm, dry, normal turgor. CBCD WBC 9.6 K/mm3 (4.0-10.0) 01/17/19 06:38 RBC 3.72 M/mm3 (4.00-5.60) L 01/17/19 06:38 Hgb 12.6 GM/dL (11.7-16.9) 01/17/19 06:38 Hct 37.1 % (35.4-49) 01/17/19 06:38 MCV 99.6 fl (80-96) H 01/17/19 06:38 MCHC 34.0 g/dl (32.0-35.9) 01/17/19 06:38 RDW 15.0 % (11.9-15.9) 01/17/19 06:38 Plt Count 76 K/MM3 (134-434) L 01/17/19 06:38 MPV 11.0 fl (7.5-11.1) 01/17/19 06:38 CMP Sodium 136 mmol/L (136-145) 01/16/19 21:21 Potassium 3.5 mmol/L (3.5-5.1) 01/16/19 21:21 Chloride 96 mmol/L (98-107) L 01/16/19 21:21 Carbon Dioxide 33 mmol/L (21-32) H 01/16/19 21:21 Anion Gap 7 MMOL/L (8-16) L 01/16/19 21:21 BUN 13.1 mg/dL (7-18) 01/16/19 21:21 Creatinine 1.8 mg/dL (0.55-1.3) H 01/16/19 21:21 Random Glucose 103 mg/dL (74-106) 01/16/19 21:21 Calcium 8.5 mg/dL (8.5-10.1) 01/16/19 21:21 Total Bilirubin 17.0 mg/dL (0.2-1) H* 01/16/19 21:21 AST 370 U/L (15-37) H 01/16/19 21:21 ALT 140 U/L (13-61) H 01/16/19 21:21 Alkaline Phosphatase 336 U/L (45-117) H 01/16/19 21:21 Total Protein 6.9 g/dl (6.4-8.2) 01/16/19 21:21 Albumin 2.6 g/dl (3.4-5.0) L 01/16/19 21:21 CARDIAC ENZYMES Creatine Kinase 529 U/L (26-308) H 01/16/19 21:21 Troponin I < 0.02 ng/ml (0.00-0.05) 01/16/19 14:19 Current Medications Generic Name Dose Route Start Last Admin Trade Name Arturo PRN Reason Stop Dose Admin Chlorhexidine Gluconate 1 applic 01/16/19 22:00 01/16/19 23:18 Hibiclens For Decolonization - TP 1 applic HS MIESHA Administration Folic Acid 1 mg 01/17/19 10:00 Folic Acid - PO DAILY MIESHA Lactated Ringer's 1,000 ml in 1,000 mls @ 100 mls/hr 01/16/19 22:45 01/16/19 23:19 Lactated Ringers Solution IV 100 mls/hr ASDIR MIESHA Administration Propofol 1,000,000 mcg in 100 mls @ 2.722 mls/hr 01/17/19 06:30 01/17/19 06: 56 Diprivan - IVPB 35 mcg/kg/min TITR MIESHA 19.051 mls/hr Administration Protocol 5 MCG/KG/MIN Fentanyl 500 mcg/ Dextrose 100 mls @ 10 mls/hr 01/17/19 07:15 01/17/19 08:08 IVPB 50 mcg/hr TITR MIESHA 10 mls/hr Administration Protocol 50 MCG/HR Lorazepam 40 mg/ Dextrose 120 mls @ 3 mls/hr 01/17/19 08:30 IVPB TITR MIESHA Protocol 1 MG/HR Lactulose 200 gm 01/16/19 20:04 01/16/19 23:18 Cephulac (Rectal Use) SD Not Given TID MIESHA Mupirocin 1 applic 01/16/19 22:00 01/16/19 23:17 Bactroban Ointment (For Decolonization) - NS 01/21/19 21:59 1 units BID MIESHA Administration Rifaximin 550 mg 01/16/19 19:01 01/16/19 23:18 Xifaxan - PO Not Given BID MIESHA Thiamine HCl 200 mg 01/17/19 10:00 Vitamin B1 Injection - IVPB 01/20/19 09:59 BID [facility] Home Medications Medication Instructions Recorded Methadone [Dolophine -] 120 mg PO DAILY 07/20/18 Amlodipine Besylate [Norvasc -] 10 mg PO DAILY #30 tablet 09/07/18 Methadone [Dolophine -] 120 mg PO DAILY 01/14/19 NK [No Known Home Medication] 01/14/19 Assessment and Plan: Patient is a 38 y/o male with PMHx HTN, alcohol withdrawal sz (1.5 pints vodka daily), opiates (on methadone), who initially presented to [facility] for alcohol detox yesterday on 01/15/19 patient was admitted to ICU for severe alcohol withdrawal, with acute respiratory failure likely 2/2 DT's. # s/p Intubation on sedation: due to DTs and alcohol withdrawel :sedated on propofol #Acute Alcohol withdrawals/Delerium Tremors:CIWA 19, thiamine IV, folate #Acute on Chronic Liver disease with Hepatic encephalopathy r/o Alcoholic hepatitis: Discriminant function score: 35. can consider starting steroids once infectious source is rulled out # Hepatic encephalopathy: On lactulose continue , repeat lab in am , f/u hepatitis panel, utox, HIV, monitor labs f/u Abd U/S #DAMIAN: baseline 1.2-->1.8 DVT Px: scds, No ac since platelets are 78k Visit type - Emergency Visit Emergency Visit: Yes ED Registration Date: 01/16/19 Care time: The patient presented to the Emergency Department on the above date and was hospitalized for further evaluation of their emergent condition. - New Patient This patient is new to me today: Yes Date on this admission: 01/17/19 - Critical Care Critical Care patient: Yes Total Critical Care Time (in minutes): 35 Critical Care Statement: The care of this patient involved high complexity decision making to prevent further life threatening deterioration of the patient 's condition and/or to evaluate & treat vital organ system(s) failure or risk of failure. - Discharge Referral Referred to [facility] Med [facility] No
[2019-01-17 08:40] LABS: BILIRUBIN,TOTAL 15.7 mg/dL (0.2-1)
[2019-01-17 09:26] LABS: ANISOCYTOSIS 1+; MACROCYTOSIS 1+; PLATELET ESTIMATE DECREASED
[2019-01-17] MEDS: RIFAXIMIN 550 MG TABLET (UD) PO SCH ×2 (09:37→21:03)
[2019-01-17] MEDS: FOLIC ACID 1 MG TABLET (FP) PO SCH (09:37)
[2019-01-17] MEDS ORDERED: THIAMINE HCL 100 MG TABLET (FP) PO SCH (10:00)
[2019-01-17] MEDS: THIAMINE HCL 200 MG/2 ML VIAL IVPB SCH ×2 (10:20→23:00)
[2019-01-17] MEDS: MUPIROCIN 2% TOPICAL OINTMENT FOR DECOLONIZATION NS SCH ×2 (10:20→21:02)
--- NOTE | 2019-01-17 10:51 | PN ---
Teaching Attending Note Name of Resident: Raisa Dhillon ATTENDING PHYSICIAN STATEMENT I saw and evaluated the patient. I reviewed the resident's note and discussed the case with the resident. I agree with the resident's findings and plan as documented. SUBJECTIVE: Patient seen and examined in the ICU. Intubated and sedated. AC Mode of vent. No pressors. Intake & Output 01/14/19 01/15/19 01/16/19 01/17/19 23:59 23:59 23:59 23:59 Intake Total 33 1540 Output Total 100 500 Balance -67 1040 Weight 168 lb 11.2 oz 229 lb 4.8 oz Last Vital Signs Temp Pulse Resp BP Pulse Ox 99.9 F H 110 H 24 H 124/91 100 01/17/19 03:00 01/17/19 09:00 01/17/19 09:00 01/17/19 09:00 01/17/19 01:00 Active Medications Chlorhexidine Gluconate (Hibiclens For Decolonization -) 1 applic TP HS [facility] Last Admin: 01/16/19 23:18 Dose: 1 applic Folic Acid (Folic Acid -) 1 mg PO DAILY MIESHA Last Admin: 01/17/19 09:37 Dose: Not Given Lactated Ringer's (Lactated Ringers Solution) 1,000 ml in 1,000 mls @ 100 mls/ hr IV ASDIR MIESHA Last Admin: 01/16/19 23:19 Dose: 100 mls/hr Propofol (Diprivan -) 1,000,000 mcg in 100 mls @ 2.722 mls/hr IVPB TITR MIESHA; Protocol Last Admin: 01/17/19 06:56 Dose: 35 mcg/kg/min, 19.051 mls/hr Fentanyl 500 mcg/ Dextrose 100 mls @ 10 mls/hr IVPB TITR MIESHA; Protocol Last Admin: 01/17/19 08:08 Dose: 50 mcg/hr, 10 mls/hr Lorazepam 40 mg/ Dextrose 120 mls @ 3 mls/hr IVPB TITR MIESHA; Protocol Last Admin: 01/17/19 08:43 Dose: 1 mg/hr, 3 mls/hr Lactulose (Cephulac (Rectal Use)) 200 gm AK TID MIESHA Last Admin: 01/16/19 23:18 Dose: Not Given Mupirocin (Bactroban Ointment (For Decolonization) -) 1 applic NS BID [facility] Stop: 01/21/19 21:59 Last Admin: 01/17/19 10:20 Dose: 1 applic Rifaximin (Xifaxan -) 550 mg PO BID [facility] Last Admin: 01/17/19 09:37 Dose: Not Given Thiamine HCl (Vitamin B1 Injection -) 200 mg IVPB BID [facility] Stop: 01/20/19 09:59 Last Admin: 01/17/19 10:20 Dose: 200 mg GENERAL: Intubated and sedated HEAD: Normal with no signs of trauma. EYES: scleral icterus EARS, NOSE, THROAT: Ears normal, nares patent, oropharynx clear without exudates. Moist mucous membranes. NECK: Normal range of motion, supple LUNGS: Vented, few scattered rhonchi HEART: +tachycardic rate and rhythm, normal S1 and S2 without murmur, rub or gallop. ABDOMEN: Soft, obese, distended. without fluid wave LOWER EXTREMITIES: 2+ pt pulses, warm, well-perfused. No calf tenderness. No peripheral edema. NEUROLOGICAL: Sedated PSYCHIATRIC: Sedated Laboratory Results - last 24 hr 01/16/19 01/16/19 01/16/19 06:38 06:38 14:19 WBC RBC Hgb Hct MCV MCH MCHC RDW Plt Count MPV Absolute Neuts (auto) Neutrophils % Neutrophils % (Manual) Band Neutrophils % Lymphocytes % Lymphocytes % (Manual) Monocytes % Monocytes % (Manual) Eosinophils % Eosinophils % (Manual) Basophils % Basophils % (Manual) Myelocytes % (Man) Promyelocytes % (Man) Blast Cells % (Manual) Nucleated RBC % Metamyelocytes Hypochromia Platelet Estimate Platelet Comment Polychromasia Poikilocytosis Anisocytosis Microcytosis Macrocytosis PT with INR INR PTT (Actin FS) Puncture Site ABG pH ABG pCO2 at Pt Temp ABG pO2 at Pt Temp ABG HCO3 ABG O2 Sat (Measured) ABG O2 Content ABG Base Excess Lawson Test O2 Delivery Device Oxygen Flow Rate Vent Mode Vent Rate PEEP Pressure Support Vent Sodium Potassium Chloride Carbon Dioxide Anion Gap BUN Creatinine Est GFR (CKD-EPI)AfAm Est GFR (CKD-EPI)NonAf Random Glucose Lactic Acid Calcium Total Bilirubin Direct Bilirubin AST ALT Alkaline Phosphatase Ammonia 56.90 H Creatine Kinase Creatine Kinase Index CK-MB (CK-2) Troponin I Total Protein Albumin Urine Color Urine Appearance Urine pH Ur Specific [place] Urine Protein Urine Glucose (UA) Urine Ketones Urine Blood Urine Nitrite Urine Bilirubin Urine Urobilinogen Ur Leukocyte Esterase Urine WBC (Auto) Urine RBC (Auto) Urine Casts (Auto) U Epithel Cells (Auto) Urine Bacteria (Auto) Opiates Screen Methadone Screen Acetaminophen <2.0 Barbiturate Screen Phencyclidine Screen Ur Amphetamines Screen MDMA (Ecstasy) Screen Benzodiazepines Screen Cocaine Screen U Marijuana (THC) Screen Blood Type A NEGATIVE Antibody Screen 01/16/19 01/16/19 01/16/19 14:19 14:19 14:19 WBC 8.9 RBC 4.22 Hgb 14.2 Hct 41.2 MCV 97.8 H MCH 33.6 MCHC 34.4 RDW 14.9 Plt Count 82 L MPV 11.2 H Absolute Neuts (auto) 6.7 Neutrophils % No Result Required. Neutrophils % (Manual) 75.8 Band Neutrophils % 0.0 Lymphocytes % No Result Required. Lymphocytes % (Manual) 13.2 Monocytes % Monocytes % (Manual) 8 Eosinophils % Eosinophils % (Manual) 0.0 Basophils % Basophils % (Manual) 1.1 Myelocytes % (Man) 0 Promyelocytes % (Man) 0 Blast Cells % (Manual) 0 Nucleated RBC % 1 H Metamyelocytes 0 Hypochromia 0 Platelet Estimate Decreased Platelet Comment Polychromasia 1+ Poikilocytosis 0 Anisocytosis 1+ Microcytosis 0 Macrocytosis 1+ PT with INR INR PTT (Actin FS) Puncture Site ABG pH ABG pCO2 at Pt Temp ABG pO2 at Pt Temp ABG HCO3 ABG O2 Sat (Measured) ABG O2 Content ABG Base Excess Lawson Test O2 Delivery Device Oxygen Flow Rate Vent Mode Vent Rate PEEP Pressure Support Vent Sodium 128 L Potassium 3.5 Chloride 89 L Carbon Dioxide 30 Anion Gap 9 BUN 11.8 Creatinine 2.0 H Est GFR (CKD-EPI)AfAm 47.65 Est GFR (CKD-EPI)NonAf 41.12 Random Glucose 106 Lactic Acid Calcium 8.8 Total Bilirubin 15.7 H* Direct Bilirubin AST 389 H ALT 139 H Alkaline Phosphatase 311 H Ammonia Creatine Kinase 360 H Creatine Kinase Index 0.3 CK-MB (CK-2) 1.4 Troponin I < 0.02 Total Protein 6.8 Albumin 2.5 L Urine Color Urine Appearance Urine pH Ur Specific [place] Urine Protein Urine Glucose (UA) Urine Ketones Urine Blood Urine Nitrite Urine Bilirubin Urine Urobilinogen Ur Leukocyte Esterase Urine WBC (Auto) Urine RBC (Auto) Urine Casts (Auto) U Epithel Cells (Auto) Urine Bacteria (Auto) Opiates Screen Methadone Screen Acetaminophen Barbiturate Screen Phencyclidine Screen Ur Amphetamines Screen MDMA (Ecstasy) Screen Benzodiazepines Screen Cocaine Screen U Marijuana (THC) Screen Blood Type Antibody Screen 01/16/19 01/16/19 01/16/19 14:19 14:19 21:21 WBC RBC Hgb Hct MCV MCH MCHC RDW Plt Count MPV Absolute Neuts (auto) Neutrophils % Neutrophils % (Manual) Band Neutrophils % Lymphocytes % Lymphocytes % (Manual) Monocytes % Monocytes % (Manual) Eosinophils % Eosinophils % (Manual) Basophils % Basophils % (Manual) Myelocytes % (Man) Promyelocytes % (Man) Blast Cells % (Manual) Nucleated RBC % Metamyelocytes Hypochromia Platelet Estimate Platelet Comment Polychromasia Poikilocytosis Anisocytosis Microcytosis Macrocytosis PT with INR 16.30 H INR 1.38 H PTT (Actin FS) Puncture Site ABG pH ABG pCO2 at Pt Temp ABG pO2 at Pt Temp ABG HCO3 ABG O2 Sat (Measured) ABG O2 Content ABG Base Excess Lawson Test O2 Delivery Device Oxygen Flow Rate Vent Mode Vent Rate PEEP Pressure Support Vent Sodium 136 Potassium 3.5 Chloride 96 L Carbon Dioxide 33 H Anion Gap 7 L BUN 13.1 Creatinine 1.8 H Est GFR (CKD-EPI)AfAm 54.13 Est GFR (CKD-EPI)NonAf 46.70 Random Glucose 103 Lactic Acid Calcium 8.5 Total Bilirubin 17.0 H* Direct Bilirubin AST 370 H ALT 140 H Alkaline Phosphatase 336 H Ammonia Creatine Kinase 529 H Creatine Kinase Index 0.5 CK-MB (CK-2) 2.8 Troponin I Total Protein 6.9 Albumin 2.6 L Urine Color Urine Appearance Urine pH Ur Specific [place] Urine Protein Urine Glucose (UA) Urine Ketones Urine Blood Urine Nitrite Urine Bilirubin Urine Urobilinogen Ur Leukocyte Esterase Urine WBC (Auto) Urine RBC (Auto) Urine Casts (Auto) U Epithel Cells (Auto) Urine Bacteria (Auto) Opiates Screen Methadone Screen Acetaminophen Barbiturate Screen Phencyclidine Screen Ur Amphetamines Screen MDMA (Ecstasy) Screen Benzodiazepines Screen Cocaine Screen U Marijuana (THC) Screen Blood Type A NEGATIVE Antibody Screen Negative 01/16/19 01/16/19 01/16/19 21:21 21:50 21:50 WBC RBC Hgb Hct MCV MCH MCHC RDW Plt Count MPV Absolute Neuts (auto) Neutrophils % Neutrophils % (Manual) Band Neutrophils % Lymphocytes % Lymphocytes % (Manual) Monocytes % Monocytes % (Manual) Eosinophils % Eosinophils % (Manual) Basophils % Basophils % (Manual) Myelocytes % (Man) Promyelocytes % (Man) Blast Cells % (Manual) Nucleated RBC % Metamyelocytes Hypochromia Platelet Estimate Platelet Comment Polychromasia Poikilocytosis Anisocytosis Microcytosis Macrocytosis PT with INR INR PTT (Actin FS) Puncture Site ABG pH ABG pCO2 at Pt Temp ABG pO2 at Pt Temp ABG HCO3 ABG O2 Sat (Measured) ABG O2 Content ABG Base Excess Lawson Test O2 Delivery Device Oxygen Flow Rate Vent Mode Vent Rate PEEP Pressure Support Vent Sodium Potassium Chloride Carbon Dioxide Anion Gap BUN Creatinine Est GFR (CKD-EPI)AfAm Est GFR (CKD-EPI)NonAf Random Glucose Lactic Acid 2.2 H* Calcium Total Bilirubin Direct Bilirubin AST ALT Alkaline Phosphatase Ammonia Creatine Kinase Creatine Kinase Index CK-MB (CK-2) Troponin I Total Protein Albumin Urine Color [place] Urine Appearance Turbid Urine pH 5.5 Ur Specific [place] 1.030 Urine Protein 30 Urine Glucose (UA) Negative Urine Ketones Negative Urine Blood Trace Urine Nitrite Positive H Urine Bilirubin Large Urine Urobilinogen 1.0 Ur Leukocyte Esterase 1+ H Urine WBC (Auto) 146.3 Urine RBC (Auto) 2.9 Urine Casts (Auto) 354.38 U Epithel Cells (Auto) 4.5 Urine Bacteria (Auto) 0.8 Opiates Screen Negative Methadone Screen Positive A* Acetaminophen Barbiturate Screen Negative Phencyclidine Screen Negative Ur Amphetamines Screen Negative MDMA (Ecstasy) Screen Negative Benzodiazepines Screen Positive A* Cocaine Screen Negative U Marijuana (THC) Screen Negative Blood Type Antibody Screen 01/16/19 01/17/19 01/17/19 23:30 00:40 00:40 WBC RBC Hgb Hct MCV MCH MCHC RDW Plt Count MPV Absolute Neuts (auto) Neutrophils % Neutrophils % (Manual) Band Neutrophils % Lymphocytes % Lymphocytes % (Manual) Monocytes % Monocytes % (Manual) Eosinophils % Eosinophils % (Manual) Basophils % Basophils % (Manual) Myelocytes % (Man) Promyelocytes % (Man) Blast Cells % (Manual) Nucleated RBC % Metamyelocytes Hypochromia Platelet Estimate Platelet Comment Polychromasia Poikilocytosis Anisocytosis Microcytosis Macrocytosis PT with INR INR PTT (Actin FS) Puncture Site Left radial ABG pH 7.31 L ABG pCO2 at Pt Temp 52.2 H ABG pO2 at Pt Temp 169 H ABG HCO3 25.6 ABG O2 Sat (Measured) 98.8 H ABG O2 Content 19.3 ABG Base Excess -0.9 Lawson Test Positive O2 Delivery Device Vent Oxygen Flow Rate 100 Vent Mode A/c Vent Rate 12 PEEP 5.0 Pressure Support Vent 500 Sodium Potassium Chloride Carbon Dioxide Anion Gap BUN Creatinine Est GFR (CKD-EPI)AfAm Est GFR (CKD-EPI)NonAf Random Glucose Lactic Acid 1.3 Calcium Total Bilirubin Direct Bilirubin 13.7 H AST ALT Alkaline Phosphatase Ammonia Creatine Kinase Creatine Kinase Index CK-MB (CK-2) Troponin I Total Protein Albumin Urine Color Urine Appearance Urine pH Ur Specific [place] Urine Protein Urine Glucose (UA) Urine Ketones Urine Blood Urine Nitrite Urine Bilirubin Urine Urobilinogen Ur Leukocyte Esterase Urine WBC (Auto) Urine RBC (Auto) Urine Casts (Auto) U Epithel Cells (Auto) Urine Bacteria (Auto) Opiates Screen Methadone Screen Acetaminophen Barbiturate Screen Phencyclidine Screen Ur Amphetamines Screen MDMA (Ecstasy) Screen Benzodiazepines Screen Cocaine Screen U Marijuana (THC) Screen Blood Type Antibody Screen 01/17/19 01/17/19 01/17/19 06:38 06:38 06:38 WBC 9.6 RBC 3.72 L Hgb 12.6 Hct 37.1 MCV 99.6 H MCH 33.9 H MCHC 34.0 RDW 15.0 Plt Count 76 L MPV 11.0 Absolute Neuts (auto) 5.6 Neutrophils % 58.9 Neutrophils % (Manual) 71.9 Band Neutrophils % 0.0 Lymphocytes % 30.7 D Lymphocytes % (Manual) 15.8 Monocytes % 7.6 Monocytes % (Manual) 9 Eosinophils % 1.2 D Eosinophils % (Manual) 0.0 Basophils % 1.6 Basophils % (Manual) 1.1 Myelocytes % (Man) 1 D Promyelocytes % (Man) 0 Blast Cells % (Manual) 0 Nucleated RBC % 0 Metamyelocytes 1 D Hypochromia 0 Platelet Estimate Decreased Platelet Comment Present Polychromasia 0 Poikilocytosis 0 Anisocytosis 1+ Microcytosis 0 Macrocytosis 1+ PT with INR 15.50 H INR 1.31 H PTT (Actin FS) 35.1 Puncture Site ABG pH ABG pCO2 at Pt Temp ABG pO2 at Pt Temp ABG HCO3 ABG O2 Sat (Measured) ABG O2 Content ABG Base Excess Lawson Test O2 Delivery Device Oxygen Flow Rate Vent Mode Vent Rate PEEP Pressure Support Vent Sodium Potassium Chloride Carbon Dioxide Anion Gap BUN Creatinine Est GFR (CKD-EPI)AfAm Est GFR (CKD-EPI)NonAf Random Glucose Lactic Acid 1.0 Calcium Total Bilirubin Direct Bilirubin AST ALT Alkaline Phosphatase Ammonia Creatine Kinase Creatine Kinase Index CK-MB (CK-2) Troponin I Total Protein Albumin Urine Color Urine Appearance Urine pH Ur Specific [place] Urine Protein Urine Glucose (UA) Urine Ketones Urine Blood Urine Nitrite Urine Bilirubin Urine Urobilinogen Ur Leukocyte Esterase Urine WBC (Auto) Urine RBC (Auto) Urine Casts (Auto) U Epithel Cells (Auto) Urine Bacteria (Auto) Opiates Screen Methadone Screen Acetaminophen Barbiturate Screen Phencyclidine Screen Ur Amphetamines Screen MDMA (Ecstasy) Screen Benzodiazepines Screen Cocaine Screen U Marijuana (THC) Screen Blood Type Antibody Screen 01/17/19 06:38 WBC RBC Hgb Hct MCV MCH MCHC RDW Plt Count MPV Absolute Neuts (auto) Neutrophils % Neutrophils % (Manual) Band Neutrophils % Lymphocytes % Lymphocytes % (Manual) Monocytes % Monocytes % (Manual) Eosinophils % Eosinophils % (Manual) Basophils % Basophils % (Manual) Myelocytes % (Man) Promyelocytes % (Man) Blast Cells % (Manual) Nucleated RBC % Metamyelocytes Hypochromia Platelet Estimate Platelet Comment Polychromasia Poikilocytosis Anisocytosis Microcytosis Macrocytosis PT with INR INR PTT (Actin FS) Puncture Site ABG pH ABG pCO2 at Pt Temp ABG pO2 at Pt Temp ABG HCO3 ABG O2 Sat (Measured) ABG O2 Content ABG Base Excess Lawson Test O2 Delivery Device Oxygen Flow Rate Vent Mode Vent Rate PEEP Pressure Support Vent Sodium 137 Potassium 3.5 Chloride 99 Carbon Dioxide 27 Anion Gap 11 BUN 12.6 Creatinine 1.3 Est GFR (CKD-EPI)AfAm 80.22 Est GFR (CKD-EPI)NonAf 69.22 Random Glucose 78 Lactic Acid Calcium 7.7 L Total Bilirubin 15.7 H* Direct Bilirubin 13.2 H AST 303 H ALT 112 H Alkaline Phosphatase 248 H Ammonia Creatine Kinase Creatine Kinase Index CK-MB (CK-2) Troponin I Total Protein 5.7 L Albumin 2.1 L Urine Color Urine Appearance Urine pH Ur Specific [place] Urine Protein Urine Glucose (UA) Urine Ketones Urine Blood Urine Nitrite Urine Bilirubin Urine Urobilinogen Ur Leukocyte Esterase Urine WBC (Auto) Urine RBC (Auto) Urine Casts (Auto) U Epithel Cells (Auto) Urine Bacteria (Auto) Opiates Screen Methadone Screen Acetaminophen Barbiturate Screen Phencyclidine Screen Ur Amphetamines Screen MDMA (Ecstasy) Screen Benzodiazepines Screen Cocaine Screen U Marijuana (THC) Screen Blood Type Antibody Screen ASSESSMENT/PLAN: Acute Respiratory Failure HTN Alcohol withdrawal seizure Opiate abuse on methadone DTs Acute Liver Failure Alcoholic Hepatitis DAMIAN Hyponatremia Hepatic Encephalopathy AC Mode of vent IVF Sedation Monitor liver function Replete lytes GI follow up VTE prophylaxis Requires ICU monitoring Dr Fry Critical care time spent in reviewing chart, evaluating patient and formulating plan - 36 minutes.
--- NOTE | 2019-01-17 11:53 | PN.GI ---
GI Progress Note Subjective: Intubated last night secondary to agitation No acute events Temp 100.2 Abd US: normal caliber CBD of 6mm, sludge in GB and enlarged fatty liver - Objective Vital Signs: Vital Signs Temperature 100.2 F H 01/17/19 11:00 Pulse Rate 108 H 01/17/19 11:00 Respiratory Rate 23 H 01/17/19 11:00 Blood Pressure 103/66 01/17/19 11:00 O2 Sat by Pulse Oximetry (%) 100 01/17/19 01:00 Constitutional: Calm (Sedated) Eyes: Yes: Sclera Icterus Cardiovascular: Yes: Tachycardia Respiratory: Yes: Diminished (at bases bilaterally) Gastrointestinal Inspection: No: Scars ...Auscultate: Yes: Normoactive Bowel Sounds ...Palpate: Yes: Hepatomegaly, Soft. No: Tenderness (No grimacing upon palpation) Neurological: Yes: Other (sedated) Labs: CBC, BMP 01/17/19 06:38 01/17/19 06:38 INR, PTT INR 1.31 (0.83-1.09) H 01/17/19 06:38 Problem List - Problems (1) Alcoholic hepatitis Assessment/Plan: Hepatitis Discriminant Function: 32 Continuie supportive measures for now. Infectious work-up in progress. No urgency for corticosteroid therapy at this time Hepatitis Serologies pending Magnesium and phosphorous added on to last night's labs but not done. Called lab. They will be run. These should be monitored in alcoholics and acute hepatitis patients For head CT scan Daily hepatic panel / PT/INR Code(s): K70.10 - ALCOHOLIC HEPATITIS WITHOUT ASCITES Qualifiers: Ascites presence: without ascites Qualified Code(s): K70.10 - Alcoholic hepatitis without ascites
[2019-01-17 12:09] LABS: MAGNESIUM 1.4 mg/dL (1.8-2.4); PHOSPHOROUS 3.2 mg/dL (2.5-4.9)
[2019-01-17] MEDS ORDERED: MAGNESIUM SULF 50% (8.12 MEQ/2 ML-1 GM VIAL) IVPB ONE (13:00)
[2019-01-17] MEDS ORDERED: DEXTROSE 5%-WATER - 50 ML IVPB ONE (13:08)
[2019-01-17] MEDS ORDERED: cefTRIAXone SODIUM 1 GM VIAL ONE (13:08)
[2019-01-17] MEDS ORDERED: MAGNESIUM SULF 50% (8.12 MEQ/2 ML-1 GM VIAL) ONE (13:08)
[2019-01-17] MEDS: CEFTRIAXONE 1 GM in DEXTROSE 5%-WATER - 50 ML IVPB SCH (13:14)
--- NOTE | 2019-01-17 13:30 | PN ---
Physical Exam: SUBJECTIVE: Patient seen and examined at bedside. Pt is intubated and sedated OBJECTIVE: Vital Signs Period Temp Pulse Resp BP Sys/Phipps Pulse Ox Last 24 Hr 97.8 F-100.4 F 104-160 12-36 101-178/15-150 95-100 GENERAL: The patient is sedated and intubated. pt is diaphoretic EYES: PERRL LUNGS: Breath sounds equal, clear to auscultation bilaterally, no wheezes, no crackles, no accessory muscle use. HEART: tachycardic and regular rhythm, S1, S2 without murmur, rub or gallop. ABDOMEN: Soft, mildly distended, normoactive bowel sounds EXTREMITIES: 2+ pulses, warm, well-perfused, no edema. SKIN: Warm, dry, normal turgor, no rashes or lesions noted Laboratory Last Values WBC 9.6 K/mm3 (4.0-10.0) 01/17/19 06:38 RBC 3.72 M/mm3 (4.00-5.60) L 01/17/19 06:38 Hgb 12.6 GM/dL (11.7-16.9) 01/17/19 06:38 Hct 37.1 % (35.4-49) 01/17/19 06:38 MCV 99.6 fl (80-96) H 01/17/19 06:38 MCH 33.9 pg (25.7-33.7) H 01/17/19 06:38 MCHC 34.0 g/dl (32.0-35.9) 01/17/19 06:38 RDW 15.0 % (11.9-15.9) 01/17/19 06:38 Plt Count 76 K/MM3 (134-434) L 01/17/19 06:38 MPV 11.0 fl (7.5-11.1) 01/17/19 06:38 Absolute Neuts (auto) 5.6 K/mm3 (1.5-8.0) 01/17/19 06:38 Neutrophils % 58.9 % (42.8-82.8) 01/17/19 06:38 Neutrophils % (Manual) 71.9 % (42.8-82.8) 01/17/19 06:38 Band Neutrophils % 0.0 % 01/17/19 06:38 Lymphocytes % 30.7 % (8-40) D 01/17/19 06:38 Lymphocytes % (Manual) 15.8 % (8-40) 01/17/19 06:38 Monocytes % 7.6 % (3.8-10.2) 01/17/19 06:38 Monocytes % (Manual) 9 % (3.8-10.2) 01/17/19 06:38 Eosinophils % 1.2 % (0-4.5) D 01/17/19 06:38 Eosinophils % (Manual) 0.0 % (0-4.5) 01/17/19 06:38 Basophils % 1.6 % (0-2.0) 01/17/19 06:38 Basophils % (Manual) 1.1 % (0-2.0) 01/17/19 06:38 Myelocytes % (Man) 1 % (0-2) D 01/17/19 06:38 Promyelocytes % (Man) 0 % (0-2) 01/17/19 06:38 Blast Cells % (Manual) 0 % (0-0) 01/17/19 06:38 Nucleated RBC % 0 % (0-0) 01/17/19 06:38 Metamyelocytes 1 % (0-2) D 01/17/19 06:38 Hypochromia 0 01/17/19 06:38 Platelet Estimate Decreased 01/17/19 06:38 Platelet Comment Present 01/17/19 06:38 Polychromasia 0 01/17/19 06:38 Poikilocytosis 0 01/17/19 06:38 Anisocytosis 1+ 01/17/19 06:38 Microcytosis 0 01/17/19 06:38 Macrocytosis 1+ 01/17/19 06:38 PT with INR 15.50 SEC (9.7-13.0) H 01/17/19 06:38 INR 1.31 (0.83-1.09) H 01/17/19 06:38 PTT (Actin FS) 35.1 SECONDS (25.2-36.5) 01/17/19 06:38 Puncture Site Left radial 01/16/19 23:30 ABG pH 7.31 (7.35-7.45) L 01/16/19 23:30 ABG pCO2 at Pt Temp 52.2 mmHg (35-45) H 01/16/19 23:30 ABG pO2 at Pt Temp 169 mmHg (80-100) H 01/16/19 23:30 ABG HCO3 25.6 mmol/L (22-27) 01/16/19 23:30 ABG O2 Sat (Measured) 98.8 % (95-98) H 01/16/19 23:30 ABG O2 Content 19.3 % vol 01/16/19 23:30 ABG Base Excess -0.9 meq/l (-2-2) 01/16/19 23:30 Lawson Test Positive 01/16/19 23:30 O2 Delivery Device Vent 01/16/19 23:30 Oxygen Flow Rate 100 01/16/19 23:30 Vent Mode A/c 01/16/19 23:30 Vent Rate 12 01/16/19 23:30 PEEP 5.0 cmH2O 01/16/19 23:30 Pressure Support Vent 500 01/16/19 23:30 Sodium 137 mmol/L (136-145) 01/17/19 06:38 Potassium 3.5 mmol/L (3.5-5.1) 01/17/19 06:38 Chloride 99 mmol/L (98-107) 01/17/19 06:38 Carbon Dioxide 27 mmol/L (21-32) 01/17/19 06:38 Anion Gap 11 MMOL/L (8-16) 01/17/19 06:38 BUN 12.6 mg/dL (7-18) 01/17/19 06:38 Creatinine 1.3 mg/dL (0.55-1.3) 01/17/19 06:38 Est GFR (CKD-EPI)AfAm 80.22 01/17/19 06:38 Est GFR (CKD-EPI)NonAf 69.22 01/17/19 06:38 Random Glucose 78 mg/dL (74-106) 01/17/19 06:38 Lactic Acid 1.0 mmol/L (0.4-2.0) 01/17/19 06:38 Calcium 7.7 mg/dL (8.5-10.1) L 01/17/19 06:38 Phosphorus 3.2 mg/dL (2.5-4.9) 01/17/19 06:00 Magnesium 1.4 mg/dL (1.8-2.4) L 01/17/19 06:00 Total Bilirubin 15.7 mg/dL (0.2-1) H* 01/17/19 06:38 Direct Bilirubin 13.2 mg/dL (0.0-0.2) H 01/17/19 06:38 AST 303 U/L (15-37) H 01/17/19 06:38 ALT 112 U/L (13-61) H 01/17/19 06:38 Alkaline Phosphatase 248 U/L (45-117) H 01/17/19 06:38 Ammonia 56.90 umol/L (11-32) H 01/16/19 14:19 Creatine Kinase 529 U/L (26-308) H 01/16/19 21:21 Creatine Kinase Index 0.5 % (0.0-5.0) 01/16/19 21:21 CK-MB (CK-2) 2.8 ng/mL (0.5-3.6) 01/16/19 21:21 Troponin I < 0.02 ng/ml (0.00-0.05) 01/16/19 14:19 Total Protein 5.7 g/dl (6.4-8.2) L 01/17/19 06:38 Albumin 2.1 g/dl (3.4-5.0) L 01/17/19 06:38 Urine Color Ellis 01/16/19 21:50 Urine Appearance Turbid 01/16/19 21:50 Urine pH 5.5 (5.0-8.0) 01/16/19 21:50 Ur Specific Rosamond 1.030 (1.010-1.035) 01/16/19 21:50 Urine Protein 30 (NEGATIVE) 01/16/19 21:50 Urine Glucose (UA) Negative (NEGATIVE) 01/16/19 21:50 Urine Ketones Negative (NEGATIVE) 01/16/19 21:50 Urine Blood Trace (NEGATIVE) 01/16/19 21:50 Urine Nitrite Positive (NEGATIVE) H 01/16/19 21:50 Urine Bilirubin Large (NEGATIVE) 01/16/19 21:50 Urine Urobilinogen 1.0 mg/dL (0.2-1.0) 01/16/19 21:50 Ur Leukocyte Esterase 1+ (NEGATIVE) H 01/16/19 21:50 Urine WBC (Auto) 146.3 /hpf (0-5) 01/16/19 21:50 Urine RBC (Auto) 2.9 /hpf (0-4) 01/16/19 21:50 Urine Casts (Auto) 354.38 /lpf (0-8) 01/16/19 21:50 U Epithel Cells (Auto) 4.5 /HPF (0-5/HPF) 01/16/19 21:50 Urine Bacteria (Auto) 0.8 /hpf (NEGATIVE) 01/16/19 21:50 Opiates Screen Negative ng/ml (KHULRA=755) 01/16/19 21:50 Methadone Screen Positive ng/ml (FPEGIF=909) A* 01/16/19 21:50 Acetaminophen <2.0 01/16/19 06:38 Barbiturate Screen Negative ng/ml (UIJIYN=131) 01/16/19 21:50 Phencyclidine Screen Negative ng/ml (CUTOFF=25) 01/16/19 21:50 Ur Amphetamines Screen Negative ng/ml (DXIIMN=691) 01/16/19 21:50 MDMA (Ecstasy) Screen Negative ng/ml (BSBILW=561) 01/16/19 21:50 Benzodiazepines Screen Positive ng/ml (VKBVLK=933) A* 01/16/19 21:50 Cocaine Screen Negative ng/ml (JECQJQ=863) 01/16/19 21:50 U Marijuana (THC) Screen Negative ng/ml (CUTOFF=50) 01/16/19 21:50 Blood Type A NEGATIVE 01/16/19 14:19 Antibody Screen Negative 01/16/19 14:19 Current Medications Chlorhexidine Gluconate (Hibiclens For Decolonization -) 1 applic TP HS MIESHA Last Admin: 01/16/19 23:18 Dose: 1 applic Folic Acid (Folic Acid -) 1 mg PO DAILY MIESHA Last Admin: 01/17/19 09:37 Dose: Not Given Lactated Ringer's (Lactated Ringers Solution) 1,000 ml in 1,000 mls @ 100 mls/ hr IV ASDIR MIESHA Last Admin: 01/16/19 23:19 Dose: 100 mls/hr Propofol (Diprivan -) 1,000,000 mcg in 100 mls @ 2.722 mls/hr IVPB TITR MIESHA; Protocol Last Titration: 01/17/19 11:30 Dose: 40 mcg/kg/min, 21.772 mls/hr Fentanyl 500 mcg/ Dextrose 100 mls @ 10 mls/hr IVPB TITR [facility]; Protocol Last Admin: 01/17/19 08:08 Dose: 50 mcg/hr, 10 mls/hr Lorazepam 40 mg/ Dextrose 120 mls @ 3 mls/hr IVPB TITR [facility]; Protocol Last Admin: 01/17/19 08:43 Dose: 1 mg/hr, 3 mls/hr Ceftriaxone Sodium 1 gm/ (Dextrose) 50 mls @ 100 mls/hr IVPB DAILY [facility] Last Admin: 01/17/19 13:14 Dose: 100 mls/hr Lactulose (Cephulac (Rectal Use)) 200 gm RI TID [facility] Last Admin: 01/16/19 23:18 Dose: Not Given Mupirocin (Bactroban Ointment (For Decolonization) -) 1 applic NS BID [facility] Stop: 01/21/19 21:59 Last Admin: 01/17/19 10:20 Dose: 1 applic Rifaximin (Xifaxan -) 550 mg PO BID [facility] Last Admin: 01/17/19 09:37 Dose: Not Given Thiamine HCl (Vitamin B1 Injection -) 200 mg IVPB BID [facility] Stop: 01/20/19 09:59 Last Admin: 01/17/19 10:20 Dose: 200 mg ASSESSMENT/PLAN: 38 yo M with PMH HTN, polysubstance abuse(1.5 pints vodka daily, on methadone), who initially presented to [facility] for alcohol detox on 01/15/19. Pt is admitted to ICU for severe alcohol withdrawal, with acute respiratory failure likely 2/2 DT's. Neuro: Acute alcohol withdrawal; DT's -initial CIWA 19 -sedated; currently on propofol gtt -c/w ativan drip -c/w banana bag, IV LR 100 cc/hr, thiamine, folate -f/u electrolytes , replete as needed -awaiting head CT Pulm: Acute respiratory failure 2/2 likely Alcohol DT's -pt was tachypneic, unable to protect airway -c/w vent: currently on a/c 500 TV/ rate 12/ 100% 02/ Peep5 GI: Acute liver failure; Likely alcoholic hepatitis; Hepatic encephalopathy -will c/w lactulose, rifaximin -f/u hepatitis serologies, HIV to r/o alternate etiologies -acetaminophen level <2 -f/u abd sono Renal: DAMIAN , hyponatremia likely 2/2 hypervolemic, cirrhosis -(Cr baseline 1.2) -c/w IVF . also possible 2/2 hepatorenal as pt acute liver failure, w/ likely cirrhosis -can send lytes in AM if needed -c/t monitor Heme: Thrombocytopenia -likely 2/2 cirrhosis -continue to hold a/c for now -awaiting abdomen u/s ID -will r/o any source of infection. currently not febrile, w/o white count -f/u blood, ucx, UA, lactic, CXR, lactic F/E/N IV LR 100 cc/hr continue to follow lytes NPO DVT PPX: SCD's Dispo: continue ICU monitoring Visit type - Emergency Visit Emergency Visit: No - New Patient This patient is new to me today: Yes Date on this admission: 01/17/19 - Critical Care Critical Care patient: Yes Total Critical Care Time (in minutes): 36 Critical Care Statement: The care of this patient involved high complexity decision making to prevent further life threatening deterioration of the patient 's condition and/or to evaluate & treat vital organ system(s) failure or risk of failure. ATTENDING PHYSICIAN STATEMENT I saw and evaluated the patient. I reviewed the resident's note and discussed the case with the resident. I agree with the resident's findings and plan as documented. SUBJECTIVE: OBJECTIVE: ASSESSMENT AND PLAN:
[2019-01-17] MEDS: LACTULOSE 20 GM/30 ML UDC (FOR RECTAL USE ONLY) PR SCH (14:00)
[2019-01-17] MEDS: LACTATED RINGERS SOLUTION 1,000 ML/1,000 ML INFUS.BAG IV SCH ×2 (14:20→23:41)
--- NOTE | 2019-01-17 15:03 | EKG ---
Test Reason : Blood Pressure : / mmHG Vent. Rate : 159 BPM Atrial Rate : 159 BPM P-R Int : 096 ms QRS Dur : 078 ms QT Int : 318 ms P-R-T Axes : 000 118 010 degrees QTc Int : 517 ms SINUS TACHYCARDIA WITH SHORT MD RIGHT AXIS DEVIATION ABNORMAL ECG WHEN COMPARED WITH ECG OF 16-JAN-2019 13:06, QRS AXIS SHIFTED RIGHT Confirmed by MD KT, MIRIAN ([id number]) on 01/17/2019 3:03:13 PM Referred By: Confirmed By:MIRIAN MERAZ MD
[2019-01-17] MEDS ORDERED: IBUPROFEN 800 MG/8 ML IJ IVPB PRN (17:51)
[2019-01-17] MEDS: CHLORHEXIDINE GLUCONATE 4% CLEANSER FOR DECOLONIZATION TP SCH (21:03)
[2019-01-18] MEDS ORDERED: fentaNYL CITRATE 250 MCG/5 ML VIAL ONE ×3 (05:32→20:06)
[2019-01-18] MEDS: LACTULOSE 20 GM/30 ML UDC (FOR RECTAL USE ONLY) PR SCH ×2 (07:12→17:18)
[2019-01-18] MEDS: PROPOFOL 1,000,000 MCG/100 ML VIAL IVPB SCH ×2 (07:13→17:30)
[2019-01-18 07:36] LABS: HEMATOCRIT 37.2 % (35.4-49); HEMOGLOBIN 12.6 GM/dL (11.7-16.9); MCH 34.7 pg (25.7-33.7); MEAN PLT VOLUME 11.5 fl (7.5-11.1); PLATELET COUNT 98 K/MM3 (134-434); RBC 3.65 M/mm3 (4.00-5.60); RDW 15.6 % (11.9-15.9); WHITE BLOOD COUNT 9.2 K/mm3 (4.0-10.0)
[2019-01-18 07:44] LABS: INR 1.25 (0.83-1.09); PROTHROMBIN TIME (PATIENT) 14.8 SEC (9.7-13.0)
[2019-01-18 08:11] LABS: ALBUMIN 1.9 g/dl (3.4-5.0); BILIRUBIN,DIRECT 12.1 mg/dL (0.0-0.2); BILIRUBIN,TOTAL 14.4 mg/dL (0.2-1); BLOOD UREA NITROGEN 17.3 mg/dL (7-18); CALCIUM 7.3 mg/dL (8.5-10.1); MAGNESIUM 2.1 mg/dL (1.8-2.4); PHOSPHOROUS 3.9 mg/dL (2.5-4.9); POTASSIUM 3.4 mmol/L (3.5-5.1); TOT PROT 5.6 g/dl (6.4-8.2)
[2019-01-18] MEDS ORDERED: cefTRIAXone SODIUM 1 GM VIAL ONE (08:42)
[2019-01-18] MEDS ORDERED: DEXTROSE 5%-WATER - 50 ML IVPB ONE (08:42)
[2019-01-18] MEDS: FENTANYL INJECTION 500 MCG in DEXTROSE 5%-WATER - 90 ML IVPB SCH ×2 (09:00→15:00)
--- NOTE | 2019-01-18 09:51 | CONSULT ---
Consult - text type - Consultation Consultation Note: Renal consult for DAMIAN This is a 38 year old gentleman with history of chronic alcohol abuse, hypertension who presented from Detox with AMS and found to have alcoholic hepatitis and developed DAMIAN. Cr was 2 on presentation and itinally improved now is 3. PMhx: as above Allergies: NKDA Family Hx: NC Social Hx: ETOH abuse, substance abuse ROS: unable to obtain Home Medications Medication Instructions Recorded Methadone [Dolophine -] 120 mg PO DAILY 07/20/18 Amlodipine Besylate [Norvasc -] 10 mg PO DAILY #30 tablet 09/07/18 Methadone [Dolophine -] 120 mg PO DAILY 01/14/19 NK [No Known Home Medication] 01/14/19 Vital Signs Temperature 99.4 F 01/18/19 06:00 Pulse Rate 104 H 01/18/19 09:02 Respiratory Rate 18 01/18/19 09:02 Blood Pressure 110/66 01/18/19 08:00 O2 Sat by Pulse Oximetry (%) 99 01/17/19 20:24 Intake & Output 01/15/19 01/16/19 01/17/19 01/18/19 23:59 23:59 23:59 23:59 Intake Total 33 3305 1896 Output Total 100 825 50 Balance -67 2480 1846 Weight 76.521 kg 104.922 kg 104.78 kg CBC, BMP 01/18/19 06:20 01/18/19 06:00 Current Medications Chlorhexidine Gluconate (Hibiclens For Decolonization -) 1 applic TP HS MIESHA Last Admin: 01/17/19 21:03 Dose: 1 applic Folic Acid (Folic Acid -) 1 mg PO DAILY MIESHA Last Admin: 01/17/19 09:37 Dose: Not Given Lactated Ringer's (Lactated Ringers Solution) 1,000 ml in 1,000 mls @ 100 mls/ hr IV ASDIR MIESHA Last Admin: 01/17/19 23:41 Dose: 100 mls/hr Propofol (Diprivan -) 1,000,000 mcg in 100 mls @ 2.722 mls/hr IVPB TITR [facility]; Protocol Last Admin: 01/18/19 07:13 Dose: 55 mcg/kg/min, 29.937 mls/hr Fentanyl 500 mcg/ Dextrose 100 mls @ 10 mls/hr IVPB TITR [facility]; Protocol Last Admin: 01/17/19 19:01 Dose: 100 mcg/hr, 20 mls/hr Lorazepam 40 mg/ Dextrose 120 mls @ 3 mls/hr IVPB TITR [facility]; Protocol Last Admin: 01/17/19 08:43 Dose: 1 mg/hr, 3 mls/hr Ceftriaxone Sodium 1 gm/ (Dextrose) 50 mls @ 100 mls/hr IVPB DAILY [facility] Last Admin: 01/17/19 13:14 Dose: 100 mls/hr Ibuprofen (Caldolor Injection -) 600 mg IVPB Q8H PRN PRN Reason: FEVER Last Admin: 01/17/19 19:00 Dose: 600 mg Lactulose (Cephulac (Rectal Use)) 200 gm AL TID [facility] Last Admin: 01/18/19 07:12 Dose: Not Given Mupirocin (Bactroban Ointment (For Decolonization) -) 1 applic NS BID [facility] Stop: 01/21/19 21:59 Last Admin: 01/17/19 21:02 Dose: 1 applic Rifaximin (Xifaxan -) 550 mg PO BID [facility] Last Admin: 01/17/19 21:03 Dose: Not Given Thiamine HCl (Vitamin B1 Injection -) 200 mg IVPB BID [facility] Stop: 01/20/19 09:59 Last Admin: 01/17/19 23:00 Dose: 200 mg 38 year old gentleman with history of chronic alcohol abuse, hypertension who presented from Detox with AMS and found to have alcoholic hepatitis and developed DAMIAN. Cr was 2 on presentation and itinally improved now is 3. 1. Acute renal failure r/o ATN vs. AIN vs. HRS vs. acute GN (less likely) 2. Alcoholic hepatitis 3. Respiratory failure 4. Hx of hypertension Check urine studies for FeNa, UPCR and Urine Eosinophils CT showed no signs of obstruction maintain Ruvalcaba for strict I and O Isotonic fluids at 150cc per hour x 24 hours keep MAP > 65 if pt fails trial of fluids can consider intravascular volume expansion with albumin D/c NSAIDs Avoid contrast exposure No emergent indication for dialysis at this time Thank you Will follow Ricardo Purvis DO
--- NOTE | 2019-01-18 09:56 | PN ---
Physical Exam: SUBJECTIVE: Patient seen and examined at bedside. No acute events overnight. Patient intubated and sedated - no ROS. OBJECTIVE: GEN: Intubated Sedated. HEENT: NC/AT CV: S1/S2, RRR, no mrg LUNG: coarse breath sounds, mechanically ventilated. GI: hypoactive BS, distended. PSYCH: Sedated NEURO: Sedated Vital Signs Period Temp Pulse Resp BP Sys/Phipps Pulse Ox Last 24 Hr 99.3 F-100.2 F 95-109 15-26 94-110/58-74 99-99 Laboratory Results - last 24 hr 01/16/19 01/16/19 01/16/19 06:38 06:38 06:38 WBC RBC Hgb Hct MCV MCH MCHC RDW Plt Count MPV Absolute Neuts (auto) Neutrophils % Lymphocytes % Nucleated RBC % PT with INR INR Sodium Potassium Chloride Carbon Dioxide Anion Gap BUN Creatinine Est GFR (CKD-EPI)AfAm Est GFR (CKD-EPI)NonAf Random Glucose Calcium Phosphorus Magnesium Total Bilirubin Direct Bilirubin AST ALT Alkaline Phosphatase Total Protein Albumin Hep Bs Antibody Non reactive Hepatitis Be Antigen Negative Hep C Ab Diagnostic HIV 1&2 Ag/Ab, 4th Gen Non reactive 01/17/19 01/17/19 01/18/19 06:00 06:38 06:00 WBC RBC Hgb Hct MCV MCH MCHC RDW Plt Count MPV Absolute Neuts (auto) Neutrophils % Lymphocytes % Nucleated RBC % PT with INR INR Sodium 137 Potassium 3.4 L Chloride 98 Carbon Dioxide 26 Anion Gap 13 BUN 17.3 Creatinine 3.0 H Est GFR (CKD-EPI)AfAm 29.19 Est GFR (CKD-EPI)NonAf 25.18 Random Glucose 90 Calcium 7.3 L Phosphorus 3.2 3.9 Magnesium 1.4 L 2.1 Total Bilirubin 14.4 H Direct Bilirubin 12.1 H AST 248 H ALT 98 H Alkaline Phosphatase 237 H Total Protein 5.6 L Albumin 1.9 L Hep Bs Antibody Hepatitis Be Antigen Hep C Ab Diagnostic <0.1 HIV 1&2 Ag/Ab, 4th Gen 01/18/19 01/18/19 06:20 06:20 WBC 9.2 RBC 3.65 L Hgb 12.6 Hct 37.2 MCV 102.0 H MCH 34.7 H MCHC 34.0 RDW 15.6 Plt Count 98 L D MPV 11.5 H Absolute Neuts (auto) 4.4 Neutrophils % No Result Required. Lymphocytes % No Result Required. Nucleated RBC % 0 PT with INR 14.80 H INR 1.25 H Sodium Potassium Chloride Carbon Dioxide Anion Gap BUN Creatinine Est GFR (CKD-EPI)AfAm Est GFR (CKD-EPI)NonAf Random Glucose Calcium Phosphorus Magnesium Total Bilirubin Direct Bilirubin AST ALT Alkaline Phosphatase Total Protein Albumin Hep Bs Antibody Hepatitis Be Antigen Hep C Ab Diagnostic HIV 1&2 Ag/Ab, 4th Gen Active Medications Generic Name Dose Route Start Last Admin Trade Name Freq PRN Reason Stop Dose Admin Chlorhexidine Gluconate 1 applic 01/16/19 22:00 01/17/19 21:03 Hibiclens For Decolonization - TP 1 applic HS MIESHA Administration Folic Acid 1 mg 01/17/19 10:00 01/17/19 09:37 Folic Acid - PO Not Given DAILY MIESHA Propofol 1,000,000 mcg in 100 mls @ 2.722 mls/hr 01/17/19 06:30 01/18/19 07: 13 Diprivan - IVPB 55 mcg/kg/min TITR MIESHA 29.937 mls/hr Administration Protocol 5 MCG/KG/MIN Fentanyl 500 mcg/ Dextrose 100 mls @ 10 mls/hr 01/17/19 07:15 01/17/19 19:01 IVPB 100 mcg/hr TITR MIESHA 20 mls/hr Administration Protocol 50 MCG/HR Lorazepam 40 mg/ Dextrose 120 mls @ 3 mls/hr 01/17/19 08:30 01/17/19 08:43 IVPB 1 mg/hr TITR MIESHA 3 mls/hr Administration Protocol 1 MG/HR Ceftriaxone Sodium 1 gm/ 50 mls @ 100 mls/hr 01/17/19 13:00 01/17/19 13:14 Dextrose IVPB 100 mls/hr DAILY MIESHA Administration Lactated Ringer's 1,000 ml in 1,000 mls @ 150 mls/hr 01/18/19 09:52 Lactated Ringers Solution IV ASDIR MIESHA Lactulose 200 gm 01/16/19 20:04 01/18/19 07:12 Cephulac (Rectal Use) CT Not Given TID MIESHA Mupirocin 1 applic 01/16/19 22:00 01/17/19 21:02 Bactroban Ointment (For Decolonization) - NS 01/21/19 21:59 1 applic BID MIESHA Administration Rifaximin 550 mg 01/16/19 19:01 01/17/19 21:03 Xifaxan - PO Not Given BID MIESHA Thiamine HCl 200 mg 01/17/19 10:00 01/17/19 23:00 Vitamin B1 Injection - IVPB 01/20/19 09:59 200 mg BID MIESHA Administration ASSESSMENT/PLAN: 38M [facility] pt ([facility]oh detox 01/15/19) PMH HTN, polysubstance abuse(1.5 pints vodka daily, on methadone) admitted to ICU for severe alcohol withdrawal with acute respiratory failure likely 2/2 DT's. Neuro - Acute alcohol withdrawal; DT's - initial CIWA 19 - sedated; currently on propofol gtt - c/w ativan drip - c/w banana bag, IV LR 100 cc/hr, thiamine, folate - f/u electrolytes , replete as needed - awaiting head CT Pulm - Acute respiratory failure 2/2 likely Alcohol DT's - pt was tachypneic, unable to protect airway - c/w vent: currently on a/c 500 TV/ rate 12/ 100% 02/ Peep5 GI - Acute liver failure; Likely alcoholic hepatitis; Hepatic encephalopathy - GI recs appreciated - Hold steroids gela - HCV Ab neg - f/u hepatitis serologies, HIV to r/o alternate etiologies - will c/w lactulose, rifaximin - acetaminophen level <2 - GI US: Impression: Somewhat limited visualization as noted above. Marked diffuse fatty infiltration of the liver is seen with associated hepatomegaly. No obvious sonographic evidence of cholelithiasis allowing for partially obscuring inspissated bile/sludge. Gallbladder overdistention is seen. There is mild diffuse nonspecific gallbladder wall thickening which may be on the basis of hepatic disease versus acute cholecystitis. Correlate clinically. No definite biliary tract dilatation is identified. Renal - DAMIAN , hyponatremia likely 2/2 hypervolemic, cirrhosis - (Cr baseline 1.2) - c/w IVF . also possible 2/2 hepatorenal as pt acute liver failure, w/ likely cirrhosis - can send lytes in AM if needed - Renal recs appreciated - no obstruction on CT - Urine studies: FeNa, UPCR, and Eosinophils - Ruvalcaba, strict I/O - fluids 150cc/h x24h - if pt fails trial of fluids can consider intravascular volume expansion with albumin - D/c NSAIDs - Avoid contrast exposure - No emergent indication for dialysis at this time - Will follow Heme - Thrombocytopenia - likely 2/2 cirrhosis - continue to hold a/c for now - awaiting abdomen u/s - uptrending PLT, f/u - AM CBC ID - r/o any source of infection. currently not febrile, w/o white count - BCx, UCx NGTD - Sputum Cx Group B strep - UA + LE and Nitrites - normalized lactate - CXR Report: Single AP view of the chest has been submitted. Since 01/16/2019 at 2111 hours again as a weak inspiration with prominent mediastinum with some retrocardiac atelectasis or infiltrate and endotracheal tube with tip well above the padma. Correlation recommended. FENGI IV LR 100 cc/hr continue to follow lytes NPO PPX - SCDs Visit type - Emergency Visit Emergency Visit: No - New Patient This patient is new to me today: Yes Date on this admission: 01/18/19 - Critical Care Critical Care patient: Yes Total Critical Care Time (in minutes): 30 Critical Care Statement: The care of this patient involved high complexity decision making to prevent further life threatening deterioration of the patient 's condition and/or to evaluate & treat vital organ system(s) failure or risk of failure.
--- NOTE | 2019-01-18 09:56 | HP ---
VOID. Home Medications Medication Instructions Recorded Methadone [Dolophine -] 120 mg PO DAILY 07/20/18 Amlodipine Besylate [Norvasc -] 10 mg PO DAILY #30 tablet 09/07/18 Methadone [Dolophine -] 120 mg PO DAILY 01/14/19 NK [No Known Home Medication] 01/14/19 PHYSICAL EXAMINATION Vital Signs - 24 hr 01/17/19 01/17/19 01/17/19 11:00 11:55 13:00 Temperature 100.2 F H 100.0 F H Pulse Rate 108 H 109 H Respiratory 23 H 22 H 26 H Rate Blood Pressure 103/66 108/69 O2 Sat by Pulse Oximetry (%) 01/17/19 01/17/19 01/17/19 14:00 16:00 16:10 Temperature 100.2 F H Pulse Rate 107 H 104 H Respiratory 22 H 22 H 22 H Rate Blood Pressure 107/74 98/67 O2 Sat by Pulse Oximetry (%) 01/17/19 01/17/19 01/17/19 18:00 20:00 20:24 Temperature Pulse Rate 101 H 101 H Respiratory 20 18 18 Rate Blood Pressure 104/67 95/58 L O2 Sat by Pulse 99 Oximetry (%) 01/17/19 01/17/19 01/18/19 20:28 22:00 00:00 Temperature 99.5 F Pulse Rate 99 H 97 H Respiratory 16 20 16 Rate Blood Pressure 94/59 L 99/68 O2 Sat by Pulse Oximetry (%) 01/18/19 01/18/19 01/18/19 00:48 02:00 04:00 Temperature 99.3 F Pulse Rate 95 H 99 H Respiratory 16 15 18 Rate Blood Pressure 99/61 101/63 O2 Sat by Pulse Oximetry (%) 01/18/19 01/18/19 01/18/19 04:25 06:00 08:00 Temperature 99.4 F Pulse Rate 100 H 106 H Respiratory 16 18 18 Rate Blood Pressure 101/64 110/66 O2 Sat by Pulse Oximetry (%) 01/18/19 01/18/19 08:52 09:02 Temperature Pulse Rate 104 H Respiratory 18 18 Rate Blood Pressure O2 Sat by Pulse Oximetry (%) GENERAL: Awake, alert, and fully oriented, in no acute distress. HEAD: Normal with no signs of trauma. EYES: Pupils equal, round and reactive to light, extraocular movements intact, sclera anicteric, conjunctiva clear. No lid lag. EARS, NOSE, THROAT: Ears normal, nares patent, oropharynx clear without exudates. Moist mucous membranes. NECK: Normal range of motion, supple without lymphadenopathy, JVD, or masses. LUNGS: Breath sounds equal, clear to auscultation bilaterally. No wheezes, and no crackles. No accessory muscle use. HEART: Regular rate and rhythm, normal S1 and S2 without murmur, rub or gallop. ABDOMEN: Soft, nontender, not distended, normoactive bowel sounds, no guarding, no rebound, no masses. No hepatomegaly or splenomegaly. MUSCULOSKELETAL: Normal range of motion at all joints. No bony deformities or tenderness. No CVA tenderness. UPPER EXTREMITIES: 2+ pulses, warm, well-perfused. No cyanosis. No clubbing. No peripheral edema. LOWER EXTREMITIES: 2+ pulses, warm, well-perfused. No calf tenderness. No peripheral edema. NEUROLOGICAL: Cranial nerves II-XII intact. Normal speech. Normal gait. PSYCHIATRIC: Cooperative. Good eye contact. Appropriate mood and affect. SKIN: Warm, dry, normal turgor, no rashes or lesions noted, normal capillary refill. Laboratory Results - last 24 hr 01/16/19 01/16/19 01/16/19 06:38 06:38 06:38 WBC RBC Hgb Hct MCV MCH MCHC RDW Plt Count MPV Absolute Neuts (auto) Neutrophils % Lymphocytes % Nucleated RBC % PT with INR INR Sodium Potassium Chloride Carbon Dioxide Anion Gap BUN Creatinine Est GFR (CKD-EPI)AfAm Est GFR (CKD-EPI)NonAf Random Glucose Calcium Phosphorus Magnesium Total Bilirubin Direct Bilirubin AST ALT Alkaline Phosphatase Total Protein Albumin Hep Bs Antibody Non reactive Hepatitis Be Antigen Negative Hep C Ab Diagnostic HIV 1&2 Ag/Ab, 4th Gen Non reactive 01/17/19 01/17/19 01/18/19 06:00 06:38 06:00 WBC RBC Hgb Hct MCV MCH MCHC RDW Plt Count MPV Absolute Neuts (auto) Neutrophils % Lymphocytes % Nucleated RBC % PT with INR INR Sodium 137 Potassium 3.4 L Chloride 98 Carbon Dioxide 26 Anion Gap 13 BUN 17.3 Creatinine 3.0 H Est GFR (CKD-EPI)AfAm 29.19 Est GFR (CKD-EPI)NonAf 25.18 Random Glucose 90 Calcium 7.3 L Phosphorus 3.2 3.9 Magnesium 1.4 L 2.1 Total Bilirubin 14.4 H Direct Bilirubin 12.1 H AST 248 H ALT 98 H Alkaline Phosphatase 237 H Total Protein 5.6 L Albumin 1.9 L Hep Bs Antibody Hepatitis Be Antigen Hep C Ab Diagnostic <0.1 HIV 1&2 Ag/Ab, 4th Gen 01/18/19 01/18/19 06:20 06:20 WBC 9.2 RBC 3.65 L Hgb 12.6 Hct 37.2 MCV 102.0 H MCH 34.7 H MCHC 34.0 RDW 15.6 Plt Count 98 L D MPV 11.5 H Absolute Neuts (auto) 4.4 Neutrophils % No Result Required. Lymphocytes % No Result Required. Nucleated RBC % 0 PT with INR 14.80 H INR 1.25 H Sodium Potassium Chloride Carbon Dioxide Anion Gap BUN Creatinine Est GFR (CKD-EPI)AfAm Est GFR (CKD-EPI)NonAf Random Glucose Calcium Phosphorus Magnesium Total Bilirubin Direct Bilirubin AST ALT Alkaline Phosphatase Total Protein Albumin Hep Bs Antibody Hepatitis Be Antigen Hep C Ab Diagnostic HIV 1&2 Ag/Ab, 4th Gen ASSESSMENT/PLAN: ATTENDING PHYSICIAN STATEMENT I saw and evaluated the patient. I reviewed the resident's note and discussed the case with the resident. I agree with the resident's findings and plan as documented. SUBJECTIVE: OBJECTIVE: ASSESSMENT AND PLAN:
[2019-01-18] MEDS: MUPIROCIN 2% TOPICAL OINTMENT FOR DECOLONIZATION NS SCH ×2 (10:11→21:16)
[2019-01-18] MEDS: LACTATED RINGERS SOLUTION 1,000 ML/1,000 ML INFUS.BAG IV SCH (10:11)
--- NOTE | 2019-01-18 10:11 | PN ---
Teaching Attending Note Name of Resident: Saud Sargent ATTENDING PHYSICIAN STATEMENT I saw and evaluated the patient. I reviewed the resident's note and discussed the case with the resident. I agree with the resident's findings and plan as documented. SUBJECTIVE: Patient seen and examined in the ICU. Intubated and sedated. AC Mode of vent, 50% FiO2. No pressors. Intake & Output 01/15/19 01/16/19 01/17/19 01/18/19 23:59 23:59 23:59 23:59 Intake Total 33 3305 1896 Output Total 100 825 50 Balance -67 2480 1846 Weight 168 lb 11.2 oz 231 lb 5 oz 231 lb Last Vital Signs Temp Pulse Resp BP Pulse Ox 99.4 F 104 H 18 110/66 99 01/18/19 06:00 01/18/19 09:02 01/18/19 09:02 01/18/19 08:00 01/17/19 20:24 Active Medications Chlorhexidine Gluconate (Hibiclens For Decolonization -) 1 applic TP HS MIESHA Last Admin: 01/17/19 21:03 Dose: 1 applic Folic Acid (Folic Acid -) 1 mg PO DAILY MIESHA Last Admin: 01/17/19 09:37 Dose: Not Given Propofol (Diprivan -) 1,000,000 mcg in 100 mls @ 2.722 mls/hr IVPB TITR MIESHA; Protocol Last Admin: 01/18/19 07:13 Dose: 55 mcg/kg/min, 29.937 mls/hr Fentanyl 500 mcg/ Dextrose 100 mls @ 10 mls/hr IVPB TITR MIESHA; Protocol Last Admin: 01/17/19 19:01 Dose: 100 mcg/hr, 20 mls/hr Lorazepam 40 mg/ Dextrose 120 mls @ 3 mls/hr IVPB TITR MIESHA; Protocol Last Admin: 01/17/19 08:43 Dose: 1 mg/hr, 3 mls/hr Ceftriaxone Sodium 1 gm/ (Dextrose) 50 mls @ 100 mls/hr IVPB DAILY MIESHA Last Admin: 01/17/19 13:14 Dose: 100 mls/hr Lactated Ringer's (Lactated Ringers Solution) 1,000 ml in 1,000 mls @ 150 mls/ hr IV ASDIR MIESHA Lactulose (Cephulac (Rectal Use)) 200 gm UT TID MIESHA Last Admin: 01/18/19 07:12 Dose: Not Given Mupirocin (Bactroban Ointment (For Decolonization) -) 1 applic NS BID [facility] Stop: 01/21/19 21:59 Last Admin: 01/17/19 21:02 Dose: 1 applic Rifaximin (Xifaxan -) 550 mg PO BID [facility] Last Admin: 01/17/19 21:03 Dose: Not Given Thiamine HCl (Vitamin B1 Injection -) 200 mg IVPB BID [facility] Stop: 01/20/19 09:59 Last Admin: 01/17/19 23:00 Dose: 200 mg GENERAL: Intubated and sedated HEAD: Normal with no signs of trauma. EYES: scleral icterus EARS, NOSE, THROAT: Ears normal, nares patent, oropharynx clear without exudates. Moist mucous membranes. NECK: Normal range of motion, supple LUNGS: Vented, few scattered rhonchi HEART: +tachycardic rate and rhythm, normal S1 and S2 without murmur, rub or gallop. ABDOMEN: Soft, obese, distended. without fluid wave LOWER EXTREMITIES: 2+ pt pulses, warm, well-perfused. No calf tenderness. No peripheral edema. NEUROLOGICAL: Sedated PSYCHIATRIC: Sedated Laboratory Results - last 24 hr 01/16/19 01/16/19 01/16/19 06:38 06:38 06:38 WBC RBC Hgb Hct MCV MCH MCHC RDW Plt Count MPV Absolute Neuts (auto) Neutrophils % Lymphocytes % Nucleated RBC % PT with INR INR Sodium Potassium Chloride Carbon Dioxide Anion Gap BUN Creatinine Est GFR (CKD-EPI)AfAm Est GFR (CKD-EPI)NonAf Random Glucose Calcium Phosphorus Magnesium Total Bilirubin Direct Bilirubin AST ALT Alkaline Phosphatase Total Protein Albumin Hep Bs Antibody Non reactive Hepatitis Be Antigen Negative Hep C Ab Diagnostic HIV 1&2 Ag/Ab, 4th Gen Non reactive 01/17/19 01/17/19 01/18/19 06:00 06:38 06:00 WBC RBC Hgb Hct MCV MCH MCHC RDW Plt Count MPV Absolute Neuts (auto) Neutrophils % Lymphocytes % Nucleated RBC % PT with INR INR Sodium 137 Potassium 3.4 L Chloride 98 Carbon Dioxide 26 Anion Gap 13 BUN 17.3 Creatinine 3.0 H Est GFR (CKD-EPI)AfAm 29.19 Est GFR (CKD-EPI)NonAf 25.18 Random Glucose 90 Calcium 7.3 L Phosphorus 3.2 3.9 Magnesium 1.4 L 2.1 Total Bilirubin 14.4 H Direct Bilirubin 12.1 H AST 248 H ALT 98 H Alkaline Phosphatase 237 H Total Protein 5.6 L Albumin 1.9 L Hep Bs Antibody Hepatitis Be Antigen Hep C Ab Diagnostic <0.1 HIV 1&2 Ag/Ab, 4th Gen 01/18/19 01/18/19 06:20 06:20 WBC 9.2 RBC 3.65 L Hgb 12.6 Hct 37.2 MCV 102.0 H MCH 34.7 H MCHC 34.0 RDW 15.6 Plt Count 98 L D MPV 11.5 H Absolute Neuts (auto) 4.4 Neutrophils % No Result Required. Lymphocytes % No Result Required. Nucleated RBC % 0 PT with INR 14.80 H INR 1.25 H Sodium Potassium Chloride Carbon Dioxide Anion Gap BUN Creatinine Est GFR (CKD-EPI)AfAm Est GFR (CKD-EPI)NonAf Random Glucose Calcium Phosphorus Magnesium Total Bilirubin Direct Bilirubin AST ALT Alkaline Phosphatase Total Protein Albumin Hep Bs Antibody Hepatitis Be Antigen Hep C Ab Diagnostic HIV 1&2 Ag/Ab, 4th Gen ASSESSMENT/PLAN: Acute Respiratory Failure ARF HTN Alcohol withdrawal seizure Opiate abuse on methadone DTs Acute Liver Failure Alcoholic Hepatitis DAMIAN Hyponatremia Hepatic Encephalopathy AC Mode of vent Increase IVF Bladder scan Renal evaluation Sedation Monitor liver function Replete lytes GI follow up VTE prophylaxis Requires ICU monitoring Dr Fry Critical care time spent in reviewing chart, evaluating patient and formulating plan - 36 minutes.
[2019-01-18] MEDS: THIAMINE HCL 200 MG/2 ML VIAL IVPB SCH ×2 (10:12→21:17)
[2019-01-18] MEDS: RIFAXIMIN 550 MG TABLET (UD) PO SCH ×2 (10:12→21:17)
[2019-01-18] MEDS: CEFTRIAXONE 1 GM in DEXTROSE 5%-WATER - 50 ML IVPB SCH (10:12)
[2019-01-18] MEDS: FOLIC ACID 1 MG TABLET (FP) PO SCH (10:12)
[2019-01-18 11:34] LABS: ANISOCYTOSIS 1+; MACROCYTOSIS 1+; PLATELET ESTIMATE DECREASED; TARGET CELLS 1+
[2019-01-18 12:36] LABS: EPI CELLS 36.9 /HPF (0-5/HPF); HYALINE CASTS 146 /lpf (0-8); URINE APPEARANCE TURBID; URINE BILIRUBIN 3+ (NEGATIVE); URINE COLOR DK YELLOW; URINE GLUCOSE (UA) NEGATIVE (NEGATIVE); URINE KETONE NEGATIVE (NEGATIVE); URINE LEUK ESTERASE 2+ (NEGATIVE); URINE NITRITE POSITIVE (NEGATIVE); URINE PROTEIN 1+ (NEGATIVE); URINE WBC 90 /hpf (0-5)
[2019-01-18 12:49] LABS: RATIO URIN PROTEIN/URIN CREAT 0.62 MG/DL
--- NOTE | 2019-01-18 13:00 | PN.GI ---
GI Progress Note Subjective: No acute events Temp 100 Remains intubated and sedated - Objective Vital Signs: Vital Signs Temperature 99.4 F 01/18/19 06:00 Pulse Rate 104 H 01/18/19 09:02 Respiratory Rate 18 01/18/19 09:02 Blood Pressure 110/66 01/18/19 08:00 O2 Sat by Pulse Oximetry (%) 99 01/17/19 20:24 Constitutional: Calm Eyes: No: Sclera Icterus Cardiovascular: Yes: Regular Rate and Rhythm Respiratory: Yes: Diminished (at bases bilaterally) Gastrointestinal Inspection: No: Scars ...Auscultate: Yes: Normoactive Bowel Sounds ...Palpate: No: Tenderness (No grimacing upon palpation) Neurological: Yes: Other (sedated) Labs: CBC, BMP 01/18/19 06:20 01/18/19 06:00 INR, PTT INR 1.25 (0.83-1.09) H 01/18/19 06:20 Laboratory Tests 01/17/19 06:38 Hep C Ab Diagnostic <0.1 Problem List - Problems (1) Alcoholic hepatitis Assessment/Plan: Some but minimal improvement in bilirubing today One through DT's and when he can be weaned off of sedation, assess mental status Lactulose 30g BID for now Holding off on corticosteroid therapy at this time HCV Ab neg, awaiting remaining hepatitis serologies Supportive measures per critical care team. Monitor lytes Code(s): K70.10 - ALCOHOLIC HEPATITIS WITHOUT ASCITES Qualifiers: Ascites presence: without ascites Qualified Code(s): K70.10 - Alcoholic hepatitis without ascites
--- NOTE | 2019-01-18 14:04 | PN ---
Physical Exam: SUBJECTIVE: Patient seen and examined. Remains intubated and sedated OBJECTIVE: Vital Signs Period Temp Pulse Resp BP Sys/Phipps Pulse Ox Last 24 Hr 99.3 F-100.2 F 95-107 15-23 94-110/58-74 99-99 GENERAL: intubated/sedated Eyes: scleral icterus LUNGS: decreased breath sounds HEART: tachycardic ABDOMEN: distended abdomen, +BS LOWER EXTREMITIES: No peripheral edema. Laboratory Results - last 24 hr 01/16/19 01/16/19 01/16/19 06:38 06:38 06:38 WBC RBC Hgb Hct MCV MCH MCHC RDW Plt Count MPV Absolute Neuts (auto) Neutrophils % Neutrophils % (Manual) Band Neutrophils % Lymphocytes % Lymphocytes % (Manual) Monocytes % (Manual) Eosinophils % (Manual) Basophils % (Manual) Myelocytes % (Man) Promyelocytes % (Man) Blast Cells % (Manual) Nucleated RBC % Metamyelocytes Hypochromia Platelet Estimate Platelet Comment Polychromasia Poikilocytosis Anisocytosis Microcytosis Macrocytosis Spherocytes Target Cells PT with INR INR Sodium Potassium Chloride Carbon Dioxide Anion Gap BUN Creatinine Est GFR (CKD-EPI)AfAm Est GFR (CKD-EPI)NonAf Random Glucose Calcium Phosphorus Magnesium Total Bilirubin Direct Bilirubin AST ALT Alkaline Phosphatase Creatine Kinase Creatine Kinase Index CK-MB (CK-2) Total Protein Albumin Urine Color Urine Appearance Urine pH Ur Specific New Site Urine Protein Urine Glucose (UA) Urine Ketones Urine Blood Urine Nitrite Urine Bilirubin Urine Urobilinogen Ur Leukocyte Esterase Urine WBC (Auto) Urine RBC (Auto) Urine Casts (Auto) U Pathogenic Cast Auto U Epithel Cells (Auto) U Sm Round Cell (Auto) Urine Crystals (Auto) Urine Bacteria (Auto) Urine Yeast (Auto) Ur Random Creatinine U Random Total Protein Ur Random Sodium Urine Creatinine Protein/Creatinin Ratio Hep Bs Antibody Non reactive Hepatitis Be Antigen Negative Hep C Ab Diagnostic HIV 1&2 Ag/Ab, 4th Gen Non reactive 01/17/19 01/17/19 01/18/19 02:30 06:38 06:00 WBC RBC Hgb Hct MCV MCH MCHC RDW Plt Count MPV Absolute Neuts (auto) Neutrophils % Neutrophils % (Manual) Band Neutrophils % Lymphocytes % Lymphocytes % (Manual) Monocytes % (Manual) Eosinophils % (Manual) Basophils % (Manual) Myelocytes % (Man) Promyelocytes % (Man) Blast Cells % (Manual) Nucleated RBC % Metamyelocytes Hypochromia Platelet Estimate Platelet Comment Polychromasia Poikilocytosis Anisocytosis Microcytosis Macrocytosis Spherocytes Target Cells PT with INR INR Sodium 137 Potassium 3.4 L Chloride 98 Carbon Dioxide 26 Anion Gap 13 BUN 17.3 Creatinine 3.0 H Est GFR (CKD-EPI)AfAm 29.19 Est GFR (CKD-EPI)NonAf 25.18 Random Glucose 90 Calcium 7.3 L Phosphorus 3.9 Magnesium 2.1 Total Bilirubin 14.4 H Direct Bilirubin 12.1 H AST 248 H ALT 98 H Alkaline Phosphatase 237 H Creatine Kinase 301 Creatine Kinase Index 0.4 CK-MB (CK-2) 1.27 Total Protein 5.6 L Albumin 1.9 L Urine Color Cancelled Urine Appearance Cancelled Urine pH Cancelled Ur Specific New Site Cancelled Urine Protein Cancelled Urine Glucose (UA) Cancelled Urine Ketones Cancelled Urine Blood Cancelled Urine Nitrite Cancelled Urine Bilirubin Cancelled Urine Urobilinogen Cancelled Ur Leukocyte Esterase Cancelled Urine WBC (Auto) Cancelled Urine RBC (Auto) Cancelled Urine Casts (Auto) Cancelled U Pathogenic Cast Auto Cancelled U Epithel Cells (Auto) Cancelled U Sm Round Cell (Auto) Cancelled Urine Crystals (Auto) Cancelled Urine Bacteria (Auto) Cancelled Urine Yeast (Auto) Cancelled Ur Random Creatinine U Random Total Protein Ur Random Sodium Urine Creatinine Protein/Creatinin Ratio Hep Bs Antibody Hepatitis Be Antigen Hep C Ab Diagnostic <0.1 HIV 1&2 Ag/Ab, 4th Gen 01/18/19 01/18/19 01/18/19 06:20 06:20 12:00 WBC 9.2 RBC 3.65 L Hgb 12.6 Hct 37.2 MCV 102.0 H MCH 34.7 H MCHC 34.0 RDW 15.6 Plt Count 98 L D MPV 11.5 H Absolute Neuts (auto) 4.4 Neutrophils % No Result Required. Neutrophils % (Manual) 65.9 Band Neutrophils % 10.2 Lymphocytes % No Result Required. Lymphocytes % (Manual) 8.0 D Monocytes % (Manual) 5 Eosinophils % (Manual) 6.8 H D Basophils % (Manual) 0.0 Myelocytes % (Man) 0 D Promyelocytes % (Man) 0 Blast Cells % (Manual) 0 Nucleated RBC % 0 Metamyelocytes 2 D Hypochromia 0 Platelet Estimate Decreased Platelet Comment Present Polychromasia 1+ Poikilocytosis 1+ Anisocytosis 1+ Microcytosis 0 Macrocytosis 1+ Spherocytes 1+ Target Cells 1+ PT with INR 14.80 H INR 1.25 H Sodium Potassium Chloride Carbon Dioxide Anion Gap BUN Creatinine Est GFR (CKD-EPI)AfAm Est GFR (CKD-EPI)NonAf Random Glucose Calcium Phosphorus Magnesium Total Bilirubin Direct Bilirubin AST ALT Alkaline Phosphatase Creatine Kinase Creatine Kinase Index CK-MB (CK-2) Total Protein Albumin Urine Color Urine Appearance Urine pH Ur Specific New Site Urine Protein Urine Glucose (UA) Urine Ketones Urine Blood Urine Nitrite Urine Bilirubin Urine Urobilinogen Ur Leukocyte Esterase Urine WBC (Auto) Urine RBC (Auto) Urine Casts (Auto) U Pathogenic Cast Auto U Epithel Cells (Auto) U Sm Round Cell (Auto) Urine Crystals (Auto) Urine Bacteria (Auto) Urine Yeast (Auto) Ur Random Creatinine 364.0 H U Random Total Protein Ur Random Sodium Urine Creatinine Protein/Creatinin Ratio Hep Bs Antibody Hepatitis Be Antigen Hep C Ab Diagnostic HIV 1&2 Ag/Ab, 4th Gen 01/18/19 01/18/19 01/18/19 12:00 12:00 12:00 WBC RBC Hgb Hct MCV MCH MCHC RDW Plt Count MPV Absolute Neuts (auto) Neutrophils % Neutrophils % (Manual) Band Neutrophils % Lymphocytes % Lymphocytes % (Manual) Monocytes % (Manual) Eosinophils % (Manual) Basophils % (Manual) Myelocytes % (Man) Promyelocytes % (Man) Blast Cells % (Manual) Nucleated RBC % Metamyelocytes Hypochromia Platelet Estimate Platelet Comment Polychromasia Poikilocytosis Anisocytosis Microcytosis Macrocytosis Spherocytes Target Cells PT with INR INR Sodium Potassium Chloride Carbon Dioxide Anion Gap BUN Creatinine Est GFR (CKD-EPI)AfAm Est GFR (CKD-EPI)NonAf Random Glucose Calcium Phosphorus Magnesium Total Bilirubin Direct Bilirubin AST ALT Alkaline Phosphatase Creatine Kinase Creatine Kinase Index CK-MB (CK-2) Total Protein Albumin Urine Color Dk yellow Urine Appearance Turbid Urine pH 5.0 Ur Specific New Site 1.030 Urine Protein 1+ H Urine Glucose (UA) Negative Urine Ketones Negative Urine Blood 2+ H Urine Nitrite Positive H Urine Bilirubin 3+ H Urine Urobilinogen 1.0 Ur Leukocyte Esterase 2+ H Urine WBC (Auto) 90 Urine RBC (Auto) Urine Casts (Auto) 146 U Pathogenic Cast Auto U Epithel Cells (Auto) 36.9 U Sm Round Cell (Auto) Urine Crystals (Auto) Urine Bacteria (Auto) Urine Yeast (Auto) Ur Random Creatinine U Random Total Protein 235.6 H Ur Random Sodium 25 L Urine Creatinine 377.0 H Protein/Creatinin Ratio 0.620 Hep Bs Antibody Hepatitis Be Antigen Hep C Ab Diagnostic HIV 1&2 Ag/Ab, 4th Gen Active Medications Generic Name Dose Route Start Last Admin Trade Name Freq PRN Reason Stop Dose Admin Chlorhexidine Gluconate 1 applic 01/16/19 22:00 01/17/19 21:03 Hibiclens For Decolonization - TP 1 applic HS MIESHA Administration Folic Acid 1 mg 01/17/19 10:00 01/18/19 10:12 Folic Acid - PO Not Given DAILY MIESHA Propofol 1,000,000 mcg in 100 mls @ 2.722 mls/hr 01/17/19 06:30 01/18/19 07: 13 Diprivan - IVPB 55 mcg/kg/min TITR MIESHA 29.937 mls/hr Administration Protocol 5 MCG/KG/MIN Fentanyl 500 mcg/ Dextrose 100 mls @ 10 mls/hr 01/17/19 07:15 01/17/19 19:01 IVPB 100 mcg/hr TITR MIESHA 20 mls/hr Administration Protocol 50 MCG/HR Lorazepam 40 mg/ Dextrose 120 mls @ 3 mls/hr 01/17/19 08:30 01/17/19 08:43 IVPB 1 mg/hr TITR MIESHA 3 mls/hr Administration Protocol 1 MG/HR Ceftriaxone Sodium 1 gm/ 50 mls @ 100 mls/hr 01/17/19 13:00 01/18/19 10:12 Dextrose IVPB 100 mls/hr DAILY MIESHA Administration Lactated Ringer's 1,000 ml in 1,000 mls @ 150 mls/hr 01/18/19 09:52 01/18/19 10:11 Lactated Ringers Solution IV 150 mls/hr ASDIR MIESHA Administration Lactulose 200 gm 01/16/19 20:04 01/18/19 07:12 Cephulac (Rectal Use) [place] Not Given TID MIESHA Mupirocin 1 applic 01/16/19 22:00 01/18/19 10:11 Bactroban Ointment (For Decolonization) - NS 01/21/19 21:59 1 applic BID MIESHA Administration Rifaximin 550 mg 01/16/19 19:01 01/18/19 10:12 Xifaxan - PO Not Given BID MIESHA Thiamine HCl 200 mg 01/17/19 10:00 01/18/19 10:12 Vitamin B1 Injection - IVPB 01/20/19 09:59 200 mg BID MIESHA Administration ASSESSMENT/PLAN: 38 y/o M with PMH HTN, alcohol withdrawal sz (1.5 pints vodka daily), opiates ( on methadone), who initially presented to [facility] for alcohol detox yesterday on 01/15/19. Pt is admitted to ICU for severe alcohol withdrawal, DTs #Acute Alcohol withdrawals/Delerium Tremors -patient no intubated, sedated on propofol -thiamine, folic acid #Acute on Chronic Liver disease/Alcoholic hepatitis - lactulose, rifaximin -bili slightly improved today -no steroids at this time #DAMIAN -cr 3 today -baseline 1.2 -IVF -nephro consult #Thrombocytopenia -likely from liver dz -no signs of bleeding at this time #DVT -held because of thrombocytopenia -scds cont. ICU monitoring Visit type - Emergency Visit Emergency Visit: Yes ED Registration Date: 01/16/19 Care time: The patient presented to the Emergency Department on the above date and was hospitalized for further evaluation of their emergent condition. - New Patient This patient is new to me today: Yes Date on this admission: 01/18/19 - Critical Care Critical Care patient: Yes Total Critical Care Time (in minutes): 45 Critical Care Statement: The care of this patient involved high complexity decision making to prevent further life threatening deterioration of the patient 's condition and/or to evaluate & treat vital organ system(s) failure or risk of failure. ATTENDING PHYSICIAN STATEMENT I saw and evaluated the patient. I reviewed the resident's note and discussed the case with the resident. I agree with the resident's findings and plan as documented. SUBJECTIVE: OBJECTIVE: ASSESSMENT AND PLAN:
[2019-01-18 15:36] LABS: URINE BACTERIA FEW /hpf (NEGATIVE); URINE RBC 236.3 /hpf (0-4)
[2019-01-18 15:37] LABS: URINE CRYSTALS AMORPHOUS URATES /hpf
[2019-01-18] MEDS: KCL 10 MEQ IVPB 10 MEQ/100 ML INFUS.BAG IVPB SCH ×2 (16:26→17:18)
[2019-01-18] MEDS ORDERED: PT OWN MED DRAWER 7, Y5N ONE (21:07)
[2019-01-18] MEDS: CHLORHEXIDINE GLUCONATE 4% CLEANSER FOR DECOLONIZATION TP SCH (21:16)
--- NOTE | 2019-01-18 21:29 | PN ---
Teaching Attending Note Name of Resident: hCristian Ruffin ATTENDING PHYSICIAN STATEMENT I saw and evaluated the patient. I reviewed the resident's note and discussed the case with the resident. I agree with the resident's findings and plan as documented. SUBJECTIVE: Patient continues to be intubated and sedated OBJECTIVE: Vital Signs Temperature 99.8 F H 01/18/19 20:00 Pulse Rate 100 H 01/18/19 20:00 Respiratory Rate 18 01/18/19 20:07 Blood Pressure 97/61 01/18/19 20:00 O2 Sat by Pulse Oximetry (%) 99 01/17/19 20:24 GENERAL: The patient is intubated ,sedated . NECK: Trachea midline, full range of motion, supple. LUNGS: intubated, decreased Breath sounds at the basis. HEART: sinus tachycardia, S1, S2 positive. ABDOMEN: Soft, distended, positive for BS. EXTREMITIES: 2+ pulses, warm, well-perfused, no edema. NEUROLOGICAL: unable to assess SKIN: Warm, dry, normal turgor. CBCD WBC 9.2 K/mm3 (4.0-10.0) 01/18/19 06:20 RBC 3.65 M/mm3 (4.00-5.60) L 01/18/19 06:20 Hgb 12.6 GM/dL (11.7-16.9) 01/18/19 06:20 Hct 37.2 % (35.4-49) 01/18/19 06:20 MCV 102.0 fl (80-96) H 01/18/19 06:20 MCHC 34.0 g/dl (32.0-35.9) 01/18/19 06:20 RDW 15.6 % (11.9-15.9) 01/18/19 06:20 Plt Count 98 K/MM3 (134-434) L D 01/18/19 06:20 MPV 11.5 fl (7.5-11.1) H 01/18/19 06:20 CMP Sodium 137 mmol/L (136-145) 01/18/19 06:00 Potassium 3.4 mmol/L (3.5-5.1) L 01/18/19 06:00 Chloride 98 mmol/L (98-107) 01/18/19 06:00 Carbon Dioxide 26 mmol/L (21-32) 01/18/19 06:00 Anion Gap 13 MMOL/L (8-16) 01/18/19 06:00 BUN 17.3 mg/dL (7-18) 01/18/19 06:00 Creatinine 3.0 mg/dL (0.55-1.3) H 01/18/19 06:00 Random Glucose 90 mg/dL (74-106) 01/18/19 06:00 Calcium 7.3 mg/dL (8.5-10.1) L 01/18/19 06:00 Total Bilirubin 14.4 mg/dL (0.2-1) H 01/18/19 06:00 AST 248 U/L (15-37) H 01/18/19 06:00 ALT 98 U/L (13-61) H 01/18/19 06:00 Alkaline Phosphatase 237 U/L (45-117) H 01/18/19 06:00 Total Protein 5.6 g/dl (6.4-8.2) L 01/18/19 06:00 Albumin 1.9 g/dl (3.4-5.0) L 01/18/19 06:00 CARDIAC ENZYMES Creatine Kinase 301 U/L (26-308) 01/18/19 06:00 Troponin I < 0.02 ng/ml (0.00-0.05) 01/16/19 14:19 Current Medications Generic Name Dose Route Start Last Admin Trade Name Freq PRN Reason Stop Dose Admin Chlorhexidine Gluconate 1 applic 01/16/19 22:00 01/18/19 21:16 Hibiclens For Decolonization - TP 1 applic HS MIESHA Administration Folic Acid 1 mg 01/17/19 10:00 01/18/19 10:12 Folic Acid - PO Not Given DAILY MIESHA Propofol 1,000,000 mcg in 100 mls @ 2.722 mls/hr 01/17/19 06:30 01/18/19 17: 30 Diprivan - IVPB 45 mcg/kg/min TITR MIESHA 24.494 mls/hr Administration Protocol 5 MCG/KG/MIN Fentanyl 500 mcg/ Dextrose 100 mls @ 10 mls/hr 01/17/19 07:15 01/18/19 15:00 IVPB 75 mcg/hr TITR MIESHA 15 mls/hr Administration Protocol 50 MCG/HR Lorazepam 40 mg/ Dextrose 120 mls @ 3 mls/hr 01/17/19 08:30 01/18/19 09:00 IVPB 1 mg/hr TITR MIESHA 3 mls/hr Administration Protocol 1 MG/HR Ceftriaxone Sodium 1 gm/ 50 mls @ 100 mls/hr 01/17/19 13:00 01/18/19 10:12 Dextrose IVPB 100 mls/hr DAILY MIESHA Administration Lactated Ringer's 1,000 ml in 1,000 mls @ 150 mls/hr 01/18/19 09:52 01/18/19 10:11 Lactated Ringers Solution IV 150 mls/hr ASDIR MIESHA Administration Mupirocin 1 applic 01/16/19 22:00 01/18/19 21:16 Bactroban Ointment (For Decolonization) - NS 01/21/19 21:59 1 applic BID MIESHA Administration Rifaximin 550 mg 01/16/19 19:01 01/18/19 21:17 Xifaxan - PO Not Given BID MIESHA Thiamine HCl 200 mg 01/17/19 10:00 01/18/19 21:17 Vitamin B1 Injection - IVPB 01/20/19 09:59 200 mg BID MIESHA Administration Home Medications Medication Instructions Recorded Methadone [Dolophine -] 120 mg PO DAILY 07/20/18 Amlodipine Besylate [Norvasc -] 10 mg PO DAILY #30 tablet 09/07/18 Methadone [Dolophine -] 120 mg PO DAILY 01/14/19 NK [No Known Home Medication] 01/14/19 Assessment and Plan: Patient is a 38 y/o male with PMHx HTN, alcohol withdrawal sz (1.5 pints vodka daily), opiates (on methadone), who initially presented to [facility] for alcohol detox yesterday on 01/15/19 patient was admitted to ICU for severe alcohol withdrawal, with acute respiratory failure likely 2/2 DT's. # s/p Intubation on sedation: due to DTs and alcohol withdrawel :sedated on propofol, lorazepam drip #Acute Alcohol withdrawals/Delerium Tremors:CIWA 19, thiamine IV, folate continue #Acute on Chronic Liver disease with Hepatic encephalopathy with Alcoholic hepatitis: follow up bili levels # Hepatic encephalopathy: On lactulose 30gm bid continue , repeat lab in am , HCV is neg. follow the rest of hepatitis panel, HIV, monitor labs rest of mangement per GI and ICU team #DAMIAN: baseline 1.2-->1.8-->3.0 now will get nephro involved # Hyperbilirubinemia due to alcoholic liver disease will continue to monitor # acute transaminits due to alcoholic liver disease DVT Px: scds, No ac since platelets are 78k-->98K today f/u Abd U/S Some
[2019-01-18 22:09] LABS: BLOOD UREA NITROGEN 21.9 mg/dL (7-18); CALCIUM 7.3 mg/dL (8.5-10.1); CREATININE 2.4 mg/dL (0.55-1.3); POTASSIUM 3.8 mmol/L (3.5-5.1)
[2019-01-18] MEDS ORDERED: ACETAMINOPHEN 1000 MG/100 ML VIAL (NON FORMULARY) IVPB ONE (23:54)
[2019-01-19] MEDS ORDERED: fentaNYL CITRATE 250 MCG/5 ML VIAL ONE ×4 (02:46→23:09)
[2019-01-19 05:48] LABS: HEMATOCRIT 36.1 % (35.4-49); HEMOGLOBIN 12.6 GM/dL (11.7-16.9); MCH 35.3 pg (25.7-33.7); MCHC 34.8 g/dl (32.0-35.9); MEAN CELL VOLUME 101.5 fl (80-96); MEAN PLT VOLUME 10.8 fl (7.5-11.1); PLATELET COUNT 138 K/MM3 (134-434); RBC 3.56 M/mm3 (4.00-5.60); RDW 15.7 % (11.9-15.9); WHITE BLOOD COUNT 8.6 K/mm3 (4.0-10.0)
[2019-01-19 05:58] LABS: ADD RBC MORPHOLOGY YES
[2019-01-19 06:24] LABS: ALBUMIN 1.8 g/dl (3.4-5.0); BILIRUBIN,DIRECT 11.7 mg/dL (0.0-0.2); BLOOD UREA NITROGEN 21.6 mg/dL (7-18); CALCIUM 7.6 mg/dL (8.5-10.1); CREATININE 1.7 mg/dL (0.55-1.3); MAGNESIUM 2.1 mg/dL (1.8-2.4); PHOSPHOROUS 3.2 mg/dL (2.5-4.9); POTASSIUM 3.6 mmol/L (3.5-5.1); TOT PROT 5.5 g/dl (6.4-8.2)
[2019-01-19 09:07] LABS: ANISOCYTOSIS 1+
[2019-01-19 09:08] LABS: MACROCYTOSIS 1+
[2019-01-19 09:10] LABS: PLATELET ESTIMATE SLT DECREASE
[2019-01-19] MEDS ORDERED: PT OWN MED DRAWER 7, Y5N ONE (09:31)
[2019-01-19] MEDS ORDERED: cefTRIAXone SODIUM 1 GM VIAL ONE (09:31)
[2019-01-19] MEDS ORDERED: DEXTROSE 5%-WATER - 50 ML IVPB ONE ×3 (09:31→17:28)
[2019-01-19] MEDS: RIFAXIMIN 550 MG TABLET (UD) PO SCH ×2 (09:34→21:19)
[2019-01-19] MEDS: THIAMINE HCL 200 MG/2 ML VIAL IVPB SCH ×2 (09:34→21:17)
[2019-01-19] MEDS: MUPIROCIN 2% TOPICAL OINTMENT FOR DECOLONIZATION NS SCH ×2 (09:34→21:18)
[2019-01-19] MEDS: CEFTRIAXONE 1 GM in DEXTROSE 5%-WATER - 50 ML IVPB SCH (09:34)
[2019-01-19] MEDS: FOLIC ACID 1 MG TABLET (FP) PO SCH (09:34)
[2019-01-19] MEDS: PROPOFOL 1,000,000 MCG/100 ML VIAL IVPB SCH ×4 (09:42→23:19)
[2019-01-19] MEDS: LACTATED RINGERS SOLUTION 1,000 ML/1,000 ML INFUS.BAG IV SCH (10:03)
[2019-01-19] MEDS: FENTANYL INJECTION 500 MCG in DEXTROSE 5%-WATER - 90 ML IVPB SCH ×3 (10:08→23:16)
--- NOTE | 2019-01-19 12:43 | PN ---
Teaching Attending Note Name of Resident: Anthony Mae ATTENDING PHYSICIAN STATEMENT I saw and evaluated the patient. I reviewed the resident's note and discussed the case with the resident. I agree with the resident's findings and plan as documented. SUBJECTIVE: Pt seen and examined in the ICU. Remains intubated, sedated on fentanyl, ativan , propofol gtts. Febrile overnight. OBJECTIVE: Vital Signs Period Temp Pulse Resp BP Sys/Phipps Pulse Ox Last 24 Hr 99.8 F-101.3 F 92-109 14-22 92-112/61-76 98-99 Intake & Output 01/16/19 01/17/19 01/18/19 01/19/19 23:59 23:59 23:59 23:59 Intake Total 33 3305 4788 1472.7 Output Total 100 825 800 300 Balance -67 2480 3988 1172.7 Weight 76.521 kg 104.922 kg 104.78 kg 95.753 kg Gen: intubated, sedated Heart: RRR Lung: decreased breath sounds at the bases Abd: softly distended, nontender Ext: no edema CBC, BMP 01/19/19 05:20 01/19/19 05:20 Active Medications Chlorhexidine Gluconate (Hibiclens For Decolonization -) 1 applic TP HS MIESHA Last Admin: 01/18/19 21:16 Dose: 1 applic Folic Acid (Folic Acid -) 1 mg PO DAILY MIESHA Last Admin: 01/19/19 09:34 Dose: Not Given Heparin Sodium (Porcine) (Heparin -) 5,000 unit SQ TID MIESHA Propofol (Diprivan -) 1,000,000 mcg in 100 mls @ 2.722 mls/hr IVPB TITR MIESHA; Protocol Last Admin: 01/19/19 09:42 Dose: 45 mcg/kg/min, 24.494 mls/hr Fentanyl 500 mcg/ Dextrose 100 mls @ 10 mls/hr IVPB TITR MIESHA; Protocol Last Admin: 01/19/19 10:08 Dose: 75 mcg/hr, 15 mls/hr Lorazepam 40 mg/ Dextrose 120 mls @ 3 mls/hr IVPB TITR MIESHA; Protocol Last Admin: 01/18/19 09:00 Dose: 1 mg/hr, 3 mls/hr Ceftriaxone Sodium 1 gm/ (Dextrose) 50 mls @ 100 mls/hr IVPB DAILY MIESHA Last Admin: 01/19/19 09:34 Dose: 100 mls/hr Lactated Ringer's (Lactated Ringers Solution) 1,000 ml in 1,000 mls @ 150 mls/ hr IV ASDIR [facility] Last Admin: 01/19/19 10:03 Dose: 150 mls/hr Mupirocin (Bactroban Ointment (For Decolonization) -) 1 applic NS BID [facility] Stop: 01/21/19 21:59 Last Admin: 01/19/19 09:34 Dose: 1 applic Rifaximin (Xifaxan -) 550 mg PO BID [facility] Last Admin: 01/19/19 09:34 Dose: Not Given Thiamine HCl (Vitamin B1 Injection -) 200 mg IVPB BID [facility] Stop: 01/20/19 09:59 Last Admin: 01/19/19 09:34 Dose: 200 mg ASSESSMENT AND PLAN: Acute Respiratory Failure Acute Alcohol Withdrawal/Delerium Tremens Alcoholic Hepatitis Acute Kidney Injury Hepatic Encephalopathy Coagulopathy Lactic Acidosis UTI Hyponatremia Methadone Maintenance HTN - continue antibiotics - f/u cultures - IVF - monitor urine output, creatinine - continue lactulose, rifaximin - lighten sedation to assess mental status - spontaneous breathing trials when mental status improved - DVT/GI prophylaxis - continue ICU monitoring critical care time spent in reviewing chart, evaluating patient and formulating plan 35 min
--- NOTE | 2019-01-19 12:57 | PN ---
Progress Note (short form) - Note Progress Note: GI f/u Patient seen and examined labs reviewed Vital Signs Temp 101.3 F H 01/19/19 10:00 Pulse 100 H 01/19/19 12:00 Resp 14 01/19/19 12:07 BP 112/73 01/19/19 12:00 Pulse Ox 98 01/19/19 10:00 Intubated, sedated +icterus +tachycardia Abdomen soft, distended, tympanic CBC, BMP 01/19/19 05:20 01/19/19 05:20 Hepatic Panel Total Bilirubin 14.0 mg/dL (0.2-1) H 01/19/19 05:20 Direct Bilirubin 11.7 mg/dL (0.0-0.2) H 01/19/19 05:20 AST 220 U/L (15-37) H 01/19/19 05:20 ALT 87 U/L (13-61) H 01/19/19 05:20 Alkaline Phosphatase 232 U/L (45-117) H 01/19/19 05:20 Albumin 1.8 g/dl (3.4-5.0) L 01/19/19 05:20 INR, PTT INR 1.25 (0.83-1.09) H 01/18/19 06:20 Impression: Acutely cholestatic liver tests in the setting of DTs. Possible ETOH hepatitis, but no elevated WBC count. New fever. Would lisa-cx for fever source - blood cx, urine cx, CXR, stool for C. diff if diarrhea Needs daily LFTs AND INR Continue ICU supportive care
[2019-01-19] MEDS ORDERED: VANCOMYCIN 1 GRAM (PRE-DOCKED) 1,000 MG/250 ML BAG IVPB ONE (13:08)
[2019-01-19] MEDS ORDERED: PIPERACILLIN/TAZOB 3.375 GM 3.375 GM in DEXTROSE 5%-WATER - 50 ML IVPB SCH ×2 (13:15→18:00)
[2019-01-19] MEDS ORDERED: PIPERACILLIN/TAZOBACTAM 3.375 GM VIAL IVPB ONE ×2 (13:16→17:28)
[2019-01-19] MEDS: PIPERACILLIN/TAZOB 3.375 GM 3.375 GM in DEXTROSE 5%-WATER - 50 ML IVPB SCH ×2 (13:24→17:29)
[2019-01-19] MEDS: HEPARIN NA (PORCINE) 5,000 UNITS/ML 1ML VIAL SQ SCH ×2 (14:00→21:17)
--- NOTE | 2019-01-19 14:11 | PN ---
Physical Exam: SUBJECTIVE: Pt seen and examined in the ICU. Remains intubated, sedated on fentanyl, ativan, propofol gtts. Febrile overnight and currently. Plan is to wean off sedation for potential extubation. OBJECTIVE: Vital Signs Period Temp Pulse Resp BP Sys/Phipps Pulse Ox Last 24 Hr 99.8 F-101.3 F 92-109 14-22 94-112/61-76 98-99 GENERAL: The patient is sedated and intubated. RASS -5. Scleral icteris present. HEAD: Normal with no signs of trauma. ENT: ET tube in place NECK: supple. LUNGS: clear to auscultation bilaterally, decreased breath sounds at the bases. HEART: Tachycardic, regular rhythm, S1, S2 without murmur, rub or gallop. ABDOMEN: Soft, nontender, distended globose abdomen, no positive fluid wave from ascites, hepatomegaly appreciated. EXTREMITIES: 2+ pulses, warm, well-perfused, no edema. Palmar erythema noted on exam. PSYCH: Normal mood, normal affect. SKIN: Warm, dry, very mild caput medusae on abdomen, palmar erythema. Laboratory Results - last 24 hr 01/18/19 01/18/19 01/18/19 06:00 12:00 20:55 WBC RBC Hgb Hct MCV MCH MCHC RDW Plt Count MPV Total Counted Neutrophils % Neutrophils % (Manual) Band Neutrophils % Lymphocytes % Lymphocytes % (Manual) Monocytes % (Manual) Eosinophils % (Manual) Myelocytes % (Man) Nucleated RBC % Platelet Estimate Platelet Comment Polychromasia Anisocytosis Macrocytosis Sodium 136 Potassium 3.8 Chloride 100 Carbon Dioxide 26 Anion Gap 10 BUN 21.9 H Creatinine 2.4 H Est GFR (CKD-EPI)AfAm 38.23 Est GFR (CKD-EPI)NonAf 32.98 Random Glucose 83 Calcium 7.3 L Phosphorus Magnesium Total Bilirubin Direct Bilirubin AST ALT Alkaline Phosphatase CK-MB (CK-2) 1.3 Total Protein Albumin Urine RBC (Auto) 236.3 U Pathogenic Cast Auto Waxy casts Urine Crystals (Auto) Amorphous urates Urine Bacteria (Auto) Few 01/19/19 01/19/19 05:20 05:20 WBC 8.6 RBC 3.56 L Hgb 12.6 Hct 36.1 MCV 101.5 H MCH 35.3 H MCHC 34.8 RDW 15.7 Plt Count 138 D MPV 10.8 Total Counted 100 Neutrophils % No Result Required. Neutrophils % (Manual) 68.0 Band Neutrophils % 6.0 Lymphocytes % No Result Required. Lymphocytes % (Manual) 13.0 D Monocytes % (Manual) 9 Eosinophils % (Manual) 2.0 Myelocytes % (Man) 2 Nucleated RBC % 0 Platelet Estimate Slt decrease Platelet Comment Smear reviewed Polychromasia 1+ Anisocytosis 1+ Macrocytosis 1+ Sodium 135 L Potassium 3.6 Chloride 98 Carbon Dioxide 28 Anion Gap 9 BUN 21.6 H Creatinine 1.7 H Est GFR (CKD-EPI)AfAm 58.00 Est GFR (CKD-EPI)NonAf 50.04 Random Glucose 94 Calcium 7.6 L Phosphorus 3.2 Magnesium 2.1 Total Bilirubin 14.0 H Direct Bilirubin 11.7 H AST 220 H ALT 87 H Alkaline Phosphatase 232 H CK-MB (CK-2) Total Protein 5.5 L Albumin 1.8 L Urine RBC (Auto) U Pathogenic Cast Auto Urine Crystals (Auto) Urine Bacteria (Auto) Active Medications Generic Name Dose Route Start Last Admin Trade Name Lesterq PRN Reason Stop Dose Admin Chlorhexidine Gluconate 1 applic 01/16/19 22:00 01/18/19 21:16 Hibiclens For Decolonization - TP 1 applic HS MIESHA Administration Folic Acid 1 mg 01/17/19 10:00 01/19/19 09:34 Folic Acid - PO Not Given DAILY MIESHA Heparin Sodium (Porcine) 5,000 unit 01/19/19 14:00 01/19/19 14:00 Heparin - SQ 5,000 unit TID MIESHA Administration Propofol 1,000,000 mcg in 100 mls @ 2.722 mls/hr 01/17/19 06:30 01/19/19 13: 27 Diprivan - IVPB 45 mcg/kg/min TITR MIESHA 24.494 mls/hr Administration Protocol 5 MCG/KG/MIN Fentanyl 500 mcg/ Dextrose 100 mls @ 10 mls/hr 01/17/19 07:15 01/19/19 10:08 IVPB 75 mcg/hr TITR MIESHA 15 mls/hr Administration Protocol 50 MCG/HR Lorazepam 40 mg/ Dextrose 120 mls @ 3 mls/hr 01/17/19 08:30 01/19/19 13:14 IVPB Not Given TITR MIESHA Protocol 1 MG/HR Lactated Ringer's 1,000 ml in 1,000 mls @ 150 mls/hr 01/18/19 09:52 01/19/19 10:03 Lactated Ringers Solution IV 150 mls/hr ASDIR MIESHA Administration Vancomycin HCl 1,000 mg in 250 mls @ 166.667 mls/hr 01/19/19 13:08 01/19/19 13:24 Vancomycin (Pre-Docked) IVPB 01/19/19 14:37 166.667 mls/hr ONCE ONE Administration Piperacillin Sod/Tazobactam 50 mls @ 100 mls/hr 01/19/19 13:15 01/19/19 13:24 Sod 3.375 gm/ Dextrose IVPB 01/20/19 02:29 100 mls/hr Q8H-IV MIESHA Administration Protocol Piperacillin Sod/Tazobactam 50 mls @ 100 mls/hr 01/19/19 18:00 Sod 3.375 gm/ Dextrose IVPB Q8H-IV MIESHA Protocol Mupirocin 1 applic 01/16/19 22:00 01/19/19 09:34 Bactroban Ointment (For Decolonization) - NS 01/21/19 21:59 1 applic BID MIESHA Administration Rifaximin 550 mg 01/16/19 19:01 01/19/19 09:34 Xifaxan - PO Not Given BID MIESHA Thiamine HCl 200 mg 01/17/19 10:00 01/19/19 09:34 Vitamin B1 Injection - IVPB 01/20/19 09:59 200 mg BID MIESHA Administration ASSESSMENT/PLAN: 38M [facility] pt (etoh detox 01/15/19) PMH HTN, polysubstance abuse(1.5 pints vodka daily, on methadone) admitted to ICU for severe alcohol withdrawal with acute respiratory failure likely 2/2 DT's. Neuro -> Acute alcohol withdrawal/Delirium Tremens - will assess CIWA once extubated. - sedated; currently on propofol gtt, will wean today and assess spontaneous breathing trials before extubation as well as mental status. - c/w banana bag, IV LR 100 cc/hr, thiamine, folate - f/u electrolytes , replete as needed Pulmonary - Acute respiratory failure 2/2 Alcoholic hepatitis induced DT's - pt was tachypneic, unable to protect airway - c/w vent: currently on a/c 500 TV/ rate 12/ 100% 02/ Peep5 GI -> Acute liver failure likely 2/2 alcoholic hepatitis/Hepatic encephalopathy - GI recs appreciated - Hold steroids at this moment. - HCV Ab neg - f/u hepatitis serologies, HIV to r/o alternate etiologies, lisa Cx to find source of infn given temp spike while on rocephin. - will c/w lactulose, rifaximin - GI US: Impression: Somewhat limited visualization as noted above. Marked diffuse fatty infiltration of the liver is seen with associated hepatomegaly. No obvious sonographic evidence of cholelithiasis allowing for partially obscuring inspissated bile/sludge. Gallbladder overdistention is seen. There is mild diffuse nonspecific gallbladder wall thickening which may be on the basis of hepatic disease versus acute cholecystitis. No definite biliary tract dilatation is identified. Renal -> DAMIAN, likely in setting of Type I (severe) hepatorenal syndrome/ cirrhosis - (Cr baseline 1.2) - c/w IVF. - can send lytes in AM if needed - Per Dr. Purvis- Urine studies indicative of renal hypoprofusion with preserved tubular function. Improving renal ftn. - will maintain [place] for strict I and O - Urine studies: FeNa- 0.1 % - [place], strict I/O- pt making adequate amount of urine. - c/w LR 150cc/h x24h - No NSAIDs - Avoid contrast exposure - No need for dialysis at this moment Heme -> Thrombocytopenia - likely 2/2 cirrhosis, resolved. - will start heparin 5K TID. - continuing to monitor ID-> likely UTI/R/o other causes of infn - r/o any source of infection. currently febrile (101), w/ white count - BCx, UCx NGTD - Sputum Cx Group B strep - UA- 2+ LE and Nitrites - normalized lactate - CXR Report: Single AP view of the chest has been submitted. Since 01/16/2019 at 2111 hours again as a weak inspiration with prominent mediastinum with some retrocardiac atelectasis or infiltrate and endotracheal tube with tip well above the padma. Pulled ET tube back to just above padma. - d/c rocephin, placed on vanco and zosyn for MRSA and pseumonas coverage in hospital. ID recs appreciated. FENGI IV LR 150 cc/hr continue to follow lytes NPO PPX - Heparin 5K TID Visit type - Emergency Visit Emergency Visit: Yes ED Registration Date: 01/16/19 Care time: The patient presented to the Emergency Department on the above date and was hospitalized for further evaluation of their emergent condition. - New Patient This patient is new to me today: No - Critical Care Critical Care patient: Yes Total Critical Care Time (in minutes): 40 Critical Care Statement: The care of this patient involved high complexity decision making to prevent further life threatening deterioration of the patient 's condition and/or to evaluate & treat vital organ system(s) failure or risk of failure. - Discharge Referral Referred to [facility] No
--- NOTE | 2019-01-19 14:16 | PN ---
Progress Note (short form) - Note Progress Note: Renal follow up for DAMIAN Seen and examined in the ICU intubated and sedated Febrile today making urine via cook BP stable Vital Signs Temperature 101.3 F H 01/19/19 10:00 Pulse Rate 100 H 01/19/19 12:00 Respiratory Rate 14 01/19/19 12:07 Blood Pressure 112/73 01/19/19 12:00 O2 Sat by Pulse Oximetry (%) 98 01/19/19 10:00 Intake & Output 01/16/19 01/17/19 01/18/19 01/19/19 23:59 23:59 23:59 23:59 Intake Total 33 3305 4788 1472.7 Output Total 100 825 800 300 Balance -67 2480 3988 1172.7 Weight 76.521 kg 104.922 kg 104.78 kg 95.753 kg Intubated via ET Tube sedated RRR CTA distended Abd No LE edema CBC, BMP 01/19/19 05:20 01/19/19 05:20 Current Medications Chlorhexidine Gluconate (Hibiclens For Decolonization -) 1 applic TP HS MIESHA Last Admin: 01/18/19 21:16 Dose: 1 applic Folic Acid (Folic Acid -) 1 mg PO DAILY MIESHA Last Admin: 01/19/19 09:34 Dose: Not Given Heparin Sodium (Porcine) (Heparin -) 5,000 unit SQ TID MIESAH Last Admin: 01/19/19 14:00 Dose: 5,000 unit Propofol (Diprivan -) 1,000,000 mcg in 100 mls @ 2.722 mls/hr IVPB TITR MIESHA; Protocol Last Admin: 01/19/19 13:27 Dose: 45 mcg/kg/min, 24.494 mls/hr Fentanyl 500 mcg/ Dextrose 100 mls @ 10 mls/hr IVPB TITR MIESHA; Protocol Last Admin: 01/19/19 10:08 Dose: 75 mcg/hr, 15 mls/hr Lorazepam 40 mg/ Dextrose 120 mls @ 3 mls/hr IVPB TITR MIESHA; Protocol Last Admin: 01/19/19 13:14 Dose: Not Given Lactated Ringer's (Lactated Ringers Solution) 1,000 ml in 1,000 mls @ 150 mls/ hr IV ASDIR MIESHA Last Admin: 01/19/19 10:03 Dose: 150 mls/hr Vancomycin HCl (Vancomycin (Pre-Docked)) 1,000 mg in 250 mls @ 166.667 mls/hr IVPB ONCE ONE Stop: 01/19/19 14:37 Last Admin: 01/19/19 13:24 Dose: 166.667 mls/hr Piperacillin Sod/Tazobactam (Sod 3.375 gm/ Dextrose) 50 mls @ 100 mls/hr IVPB Q8H-IV MIESHA; Protocol Stop: 01/20/19 02:29 Last Admin: 01/19/19 13:24 Dose: 100 mls/hr Piperacillin Sod/Tazobactam (Sod 3.375 gm/ Dextrose) 50 mls @ 100 mls/hr IVPB Q8H-IV MIESHA; Protocol Mupirocin (Bactroban Ointment (For Decolonization) -) 1 applic NS BID MIESHA Stop: 01/21/19 21:59 Last Admin: 01/19/19 09:34 Dose: 1 applic Rifaximin (Xifaxan -) 550 mg PO BID MIESHA Last Admin: 01/19/19 09:34 Dose: Not Given Thiamine HCl (Vitamin B1 Injection -) 200 mg IVPB BID MIESHA Stop: 01/20/19 09:59 Last Admin: 01/19/19 09:34 Dose: 200 mg 38 year old gentleman with history of chronic alcohol abuse, hypertension who presented from Detox with AMS and found to have alcoholic hepatitis and developed DAMIAN. Cr was 2 on presentation and itinally improved now is 3. 1. Acute renal failure r/o ATN vs. AIN vs. HRS vs. acute GN (less likely) 2. Alcoholic hepatitis 3. Respiratory failure 4. Hx of hypertension Renal function improving Urine studies indicative of renal hypoprofusion with preserved tubular function Would continue isotonic fluids for now CT showed no signs of obstruction maintain Cook for strict I and O D/c NSAIDs Avoid contrast exposure Ricardo Purvis DO
--- NOTE | 2019-01-19 15:42 | PN ---
Progress Note (short form) - Note Progress Note: ID consult dictated a/p fever alcohol withdrawal etoh hepatitis acute respiratory failure gretchen- improved f/u cultures continue zosyn vanco level in am ?biliary source of fever, versus etoh hepatitis Problem List - Problems (1) Fever Code(s): R50.9 - FEVER, UNSPECIFIED (2) Alcohol withdrawal Code(s): F10.239 - ALCOHOL DEPENDENCE WITH WITHDRAWAL, UNSPECIFIED (3) Alcoholic hepatitis Code(s): K70.10 - ALCOHOLIC HEPATITIS WITHOUT ASCITES Qualifiers: Ascites presence: without ascites Qualified Code(s): K70.10 - Alcoholic hepatitis without ascites (4) Acute respiratory failure Code(s): J96.00 - ACUTE RESPIRATORY FAILURE, UNSP W HYPOXIA OR HYPERCAPNIA
--- NOTE | 2019-01-19 17:21 | PN ---
Physical Exam: SUBJECTIVE: Patient seen and examined. Pt is sedated. OBJECTIVE: Vital Signs Period Temp Pulse Resp BP Sys/Phipps Pulse Ox Last 24 Hr 99.8 F-102.2 F 92-106 14-22 94-118/61-79 98-99 GENERAL: The patient is sedated and intubated. RASS -5. Scleral icteris present. HEAD: Normal with no signs of trauma. ENT: ET tube in place LUNGS: clear to auscultation bilaterally, decreased breath sounds at the bases. HEART: Tachycardic, regular rhythm, S1, S2 without murmur, rub or gallop. ABDOMEN: Soft, nontender, distended globose abdomen,mild hepatomegaly EXTREMITIES: 2+ pulses, warm, well-perfused, no edema. Laboratory Results - last 24 hr 01/18/19 01/19/19 01/19/19 20:55 05:20 05:20 WBC 8.6 RBC 3.56 L Hgb 12.6 Hct 36.1 MCV 101.5 H MCH 35.3 H MCHC 34.8 RDW 15.7 Plt Count 138 D MPV 10.8 Total Counted 100 Neutrophils % No Result Required. Neutrophils % (Manual) 68.0 Band Neutrophils % 6.0 Lymphocytes % No Result Required. Lymphocytes % (Manual) 13.0 D Monocytes % (Manual) 9 Eosinophils % (Manual) 2.0 Myelocytes % (Man) 2 Nucleated RBC % 0 Platelet Estimate Slt decrease Platelet Comment Smear reviewed Polychromasia 1+ Anisocytosis 1+ Macrocytosis 1+ Sodium 136 135 L Potassium 3.8 3.6 Chloride 100 98 Carbon Dioxide 26 28 Anion Gap 10 9 BUN 21.9 H 21.6 H Creatinine 2.4 H 1.7 H Est GFR (CKD-EPI)AfAm 38.23 58.00 Est GFR (CKD-EPI)NonAf 32.98 50.04 Random Glucose 83 94 Calcium 7.3 L 7.6 L Phosphorus 3.2 Magnesium 2.1 Total Bilirubin 14.0 H Direct Bilirubin 11.7 H AST 220 H ALT 87 H Alkaline Phosphatase 232 H Total Protein 5.5 L Albumin 1.8 L Active Medications Generic Name Dose Route Start Last Admin Trade Name Freq PRN Reason Stop Dose Admin Chlorhexidine Gluconate 1 applic 01/16/19 22:00 01/18/19 21:16 Hibiclens For Decolonization - TP 1 applic HS MIESHA Administration Folic Acid 1 mg 01/17/19 10:00 01/19/19 09:34 Folic Acid - PO Not Given DAILY [facility] Heparin Sodium (Porcine) 5,000 unit 01/19/19 14:00 01/19/19 14:00 Heparin - SQ 5,000 unit TID MIESHA Administration Propofol 1,000,000 mcg in 100 mls @ 2.722 mls/hr 01/17/19 06:30 01/19/19 13: 27 Diprivan - IVPB 45 mcg/kg/min TITR MIESHA 24.494 mls/hr Administration Protocol 5 MCG/KG/MIN Fentanyl 500 mcg/ Dextrose 100 mls @ 10 mls/hr 01/17/19 07:15 01/19/19 10:08 IVPB 75 mcg/hr TITR MIESHA 15 mls/hr Administration Protocol 50 MCG/HR Lorazepam 40 mg/ Dextrose 120 mls @ 3 mls/hr 01/17/19 08:30 01/19/19 13:14 IVPB Not Given TITR MIESHA Protocol 1 MG/HR Lactated Ringer's 1,000 ml in 1,000 mls @ 150 mls/hr 01/18/19 09:52 01/19/19 10:03 Lactated Ringers Solution IV 150 mls/hr ASDIR MIESHA Administration Piperacillin Sod/Tazobactam 50 mls @ 100 mls/hr 01/19/19 13:15 01/19/19 13:24 Sod 3.375 gm/ Dextrose IVPB 01/20/19 02:29 100 mls/hr Q8H-IV MIESHA Administration Protocol Piperacillin Sod/Tazobactam 50 mls @ 100 mls/hr 01/19/19 18:00 Sod 3.375 gm/ Dextrose IVPB Q8H-IV MIESHA Protocol Mupirocin 1 applic 01/16/19 22:00 01/19/19 09:34 Bactroban Ointment (For Decolonization) - NS 01/21/19 21:59 1 applic BID MIESHA Administration Rifaximin 550 mg 01/16/19 19:01 01/19/19 09:34 Xifaxan - PO Not Given BID [facility] Thiamine HCl 200 mg 01/17/19 10:00 01/19/19 09:34 Vitamin B1 Injection - IVPB 01/20/19 09:59 200 mg BID MIESHA Administration ASSESSMENT/PLAN: 38M [facility] pt (etoh detox 01/15/19) PMH HTN, polysubstance abuse(1.5 pints vodka daily, on methadone) admitted to ICU for severe alcohol withdrawal with DT 's. Acute alcohol withdrawal/Delirium Tremens will assess CIWA once extubated. sedated; currently on propofol gtt, spontaneous breathing trials , fentanyl c/w banana bag, IV LR 100 cc/hr, thiamine, folate f/u electrolytes , replete as needed alcoholic hepatitis Hold steroids at this moment as per GI with Maddley discriminant score LFTs trending down . serology pending GI US: Impression: Somewhat limited visualization as noted above. Marked diffuse fatty infiltration of the liver is seen with associated hepatomegaly. No obvious sonographic evidence of cholelithiasis allowing for partially obscuring inspissated bile/sludge. Gallbladder overdistention is seen. There is mild diffuse nonspecific gallbladder wall thickening which may be on the basis of hepatic disease versus acute cholecystitis. No definite biliary tract dilatation is identified. DAMIAN, likely in setting of Type I (severe) hepatorenal syndrome/cirrhosis (Cr baseline 1.2) 1.7 today c/w IVF. Per Dr. Purvis- Urine studies indicative of renal hypoprofusion with preserved tubular function. Improving renal ftn. will maintain Ruvalcaba for strict I and O Ruvalcaba, strict I/O- pt making adequate amount of urine. c/w LR 150cc/h x24h No NSAIDs Avoid contrast exposure No need for dialysis at this moment likely UTI/R/o other causes of infn r/o any source of infection. febrile (100.7 this morning) BCx, UCx NGTD Sputum Cx Group B strep UA- 2+ LE and Nitrites normalized lactate CXR Report: Single AP view of the chest has been submitted. Since 01/16/2019 at 2111 hours again as a weak inspiration with prominent mediastinum with some retrocardiac atelectasis or infiltrate and endotracheal tube with tip well above the padma. Pulled ET tube back to just above padma. d/c rocephin, on zosyn DVT Hep subQ Visit type - Emergency Visit Emergency Visit: Yes ED Registration Date: 01/16/19 Care time: The patient presented to the Emergency Department on the above date and was hospitalized for further evaluation of their emergent condition. - New Patient This patient is new to me today: Yes Date on this admission: 01/19/19 - Critical Care Critical Care patient: Yes Total Critical Care Time (in minutes): 35 Critical Care Statement: The care of this patient involved high complexity decision making to prevent further life threatening deterioration of the patient 's condition and/or to evaluate & treat vital organ system(s) failure or risk of failure. ATTENDING PHYSICIAN STATEMENT I saw and evaluated the patient. I reviewed the resident's note and discussed the case with the resident. I agree with the resident's findings and plan as documented. SUBJECTIVE: OBJECTIVE: ASSESSMENT AND PLAN:
--- NOTE | 2019-01-19 17:33 | PN ---
Teaching Attending Note Name of Resident: Yennifer Terrell ATTENDING PHYSICIAN STATEMENT I saw and evaluated the patient. I reviewed the resident's note and discussed the case with the resident. I agree with the resident's findings and plan as documented. SUBJECTIVE: Patient is intubated sedated, weaning trials as per ICU team OBJECTIVE: Vital Signs Temperature 102.2 F H 01/19/19 14:00 Pulse Rate 102 H 01/19/19 14:00 Respiratory Rate 21 H 01/19/19 14:00 Blood Pressure 118/79 01/19/19 14:00 O2 Sat by Pulse Oximetry (%) 98 01/19/19 10:00 GENERAL: The patient is intubated ,sedated . NECK: Trachea midline, full range of motion, supple. LUNGS: intubated, decreased Breath sounds at the basis. HEART: sinus tachycardia, S1, S2 positive. ABDOMEN: Soft, distended, positive for BS. EXTREMITIES: 2+ pulses, warm, well-perfused, no edema. NEUROLOGICAL: unable to assess SKIN: Warm, dry, normal turgor. CBCD WBC 8.6 K/mm3 (4.0-10.0) 01/19/19 05:20 RBC 3.56 M/mm3 (4.00-5.60) L 01/19/19 05:20 Hgb 12.6 GM/dL (11.7-16.9) 01/19/19 05:20 Hct 36.1 % (35.4-49) 01/19/19 05:20 MCV 101.5 fl (80-96) H 01/19/19 05:20 MCHC 34.8 g/dl (32.0-35.9) 01/19/19 05:20 RDW 15.7 % (11.9-15.9) 01/19/19 05:20 Plt Count 138 K/MM3 (134-434) D 01/19/19 05:20 MPV 10.8 fl (7.5-11.1) 01/19/19 05:20 CMP Sodium 135 mmol/L (136-145) L 01/19/19 05:20 Potassium 3.6 mmol/L (3.5-5.1) 01/19/19 05:20 Chloride 98 mmol/L (98-107) 01/19/19 05:20 Carbon Dioxide 28 mmol/L (21-32) 01/19/19 05:20 Anion Gap 9 MMOL/L (8-16) 01/19/19 05:20 BUN 21.6 mg/dL (7-18) H 01/19/19 05:20 Creatinine 1.7 mg/dL (0.55-1.3) H 01/19/19 05:20 Random Glucose 94 mg/dL (74-106) 01/19/19 05:20 Calcium 7.6 mg/dL (8.5-10.1) L 01/19/19 05:20 Total Bilirubin 14.0 mg/dL (0.2-1) H 01/19/19 05:20 AST 220 U/L (15-37) H 01/19/19 05:20 ALT 87 U/L (13-61) H 01/19/19 05:20 Alkaline Phosphatase 232 U/L (45-117) H 01/19/19 05:20 Total Protein 5.5 g/dl (6.4-8.2) L 01/19/19 05:20 Albumin 1.8 g/dl (3.4-5.0) L 01/19/19 05:20 CARDIAC ENZYMES Creatine Kinase 301 U/L (26-308) 01/18/19 06:00 Troponin I < 0.02 ng/ml (0.00-0.05) 01/16/19 14:19 Current Medications Generic Name Dose Route Start Last Admin Trade Name Lesterq PRN Reason Stop Dose Admin Chlorhexidine Gluconate 1 applic 01/16/19 22:00 01/18/19 21:16 Hibiclens For Decolonization - TP 1 applic HS MIESHA Administration Folic Acid 1 mg 01/17/19 10:00 01/19/19 09:34 Folic Acid - PO Not Given DAILY [facility] Heparin Sodium (Porcine) 5,000 unit 01/19/19 14:00 01/19/19 14:00 Heparin - SQ 5,000 unit TID MIESHA Administration Propofol 1,000,000 mcg in 100 mls @ 2.722 mls/hr 01/17/19 06:30 01/19/19 16: 30 Diprivan - IVPB 30 mcg/kg/min TITR MIESHA 16.329 mls/hr Titration Protocol 5 MCG/KG/MIN Fentanyl 500 mcg/ Dextrose 100 mls @ 10 mls/hr 01/17/19 07:15 01/19/19 17:31 IVPB 75 mcg/hr TITR MIESHA 15 mls/hr Administration Protocol 50 MCG/HR Lorazepam 40 mg/ Dextrose 120 mls @ 3 mls/hr 01/17/19 08:30 01/19/19 14:00 IVPB 0 mg/hr TITR MIESHA 0 mls/hr Titration Protocol 1 MG/HR Lactated Ringer's 1,000 ml in 1,000 mls @ 150 mls/hr 01/18/19 09:52 01/19/19 10:03 Lactated Ringers Solution IV 150 mls/hr ASDIR MIESHA Administration Piperacillin Sod/Tazobactam 50 mls @ 100 mls/hr 01/19/19 13:15 01/19/19 17:29 Sod 3.375 gm/ Dextrose IVPB 01/20/19 02:29 100 mls/hr Q8H-IV MIESHA Administration Protocol Piperacillin Sod/Tazobactam 50 mls @ 100 mls/hr 01/19/19 18:00 Sod 3.375 gm/ Dextrose IVPB Q8H-IV MIESHA Protocol Mupirocin 1 applic 01/16/19 22:00 01/19/19 09:34 Bactroban Ointment (For Decolonization) - NS 01/21/19 21:59 1 applic BID MIESHA Administration Rifaximin 550 mg 01/16/19 19:01 01/19/19 09:34 Xifaxan - PO Not Given BID MIESHA Thiamine HCl 200 mg 01/17/19 10:00 01/19/19 09:34 Vitamin B1 Injection - IVPB 01/20/19 09:59 200 mg BID MIESHA Administration Home Medications Medication Instructions Recorded Methadone [Dolophine -] 120 mg PO DAILY 07/20/18 Amlodipine Besylate [Norvasc -] 10 mg PO DAILY #30 tablet 09/07/18 Methadone [Dolophine -] 120 mg PO DAILY 01/14/19 NK [No Known Home Medication] 01/14/19 Laboratory Tests 01/16/19 01/16/19 01/16/19 14:19 14:19 21:21 Total Bilirubin 15.7 H* 17.0 H* Direct Bilirubin AST 389 H 370 H ALT 139 H 140 H Alkaline Phosphatase 311 H 336 H Ammonia 56.90 H 01/17/19 01/17/1919 00:40 06:38 06:00 Total Bilirubin 15.7 H* 14.4 H Direct Bilirubin 13.7 H 13.2 H 12.1 H AST 303 H 248 H ALT 112 H 98 H Alkaline Phosphatase 248 H 237 H Ammonia 01/19/19 05:20 Total Bilirubin 14.0 H Direct Bilirubin 11.7 H AST 220 H ALT 87 H Alkaline Phosphatase 232 H Ammonia Microbiology 01/17/19 02:30 Sputum - Endotrachea Suction/Ventilator Gram Stain - Final 01/17/19 02:30 Sputum - Endotrachea Suction/Ventilator Sputum Culture - Final Strep Agalactiae Group B 01/17/19 06:38 Blood - Peripheral Venous Blood Culture - Preliminary NO GROWTH OBTAINED AFTER 48 HOURS, INCUBATION TO CONTINUE FOR 3 DAYS. 01/17/19 06:38 Blood - Peripheral Venous Blood Culture - Preliminary NO GROWTH OBTAINED AFTER 48 HOURS, INCUBATION TO CONTINUE FOR 3 DAYS. 01/16/19 21:50 Urine - Urine Clean Catch Urine Culture - Final NO GROWTH OBTAINED ASSESSMENT AND PLAN: Patient is a 38 y/o male with PMHx HTN, alcohol withdrawal sz (1.5 pints vodka daily), opiates (on methadone), who initially presented to [facility] for alcohol detox yesterday on 01/15/19 patient was admitted to ICU for severe alcohol withdrawal, with acute respiratory failure likely due DT's. #Fever Tmax of 102.7 , on vanco and zosyn ID consulted, sputum is growing Strep Agalactiae Group B, ID on the case, Us of abdomen marked diffuse infiltration of the liver, hepatomegaly, gallbladder overdistention , mild diffuse nonspecific gallbladder wall thickening which may be the basis of hepatic disease vs acute cholecystitis. surgical evaluation. # s/p Intubation on sedation: due to DTs and alcohol withdrawel :sedated on propofol, lorazepam drip continue #Acute Alcohol withdrawals/Delerium Tremors continue: on thiamine IV, folate continue #Acute on Chronic Liver disease with Hepatic encephalopathy with Alcoholic hepatitis: continue to follow up bili levels # Hepatic encephalopathy: On lactulose 30gm bid continue, repeat lab in am , HCV is neg. follow the rest of hepatitis panel, HIV, monitor labs rest of mangement per GI and ICU team #DAMIAN: baseline 1.2-->1.8-->3.0-->1.7 , rest per nephro # Hyperbilirubinemia due to alcoholic liver disease will continue to monitor # acute transaminits due to alcoholic liver disease continue to monitor DVT Px: scds, No ac since platelets are 78k-->98K-->138 today
--- NOTE | 2019-01-19 18:50 | CONS ---
INFECTIOUS DISEASE CONSULTATION DATE OF CONSULTATION: DATE OF DICTATION: 01/19/2019 REQUESTING PHYSICIAN: The hospitalist. This is a 38-year-old man with a past medical history of hypertension, liver disease, who presented to detoxification on the . He drinks 1-1/2 L of vodka a day and 2-3 big beers. He has a history of blackouts. He denies heroin use. He is on methadone and lives with his mother. He was sent from the detoxification unit to the hospital on the with abnormal labs. He had an elevated ammonia level and elevated LFTs, and he was very jaundiced. He apparently has a history of chronic alcohol abuse since age 15. He is currently intubated and sedated in the ICU, and I am asked to see him for fever. PAST MEDICAL HISTORY: Notable for alcohol use disorder, seizures from withdrawals, opiate use. He is on methadone. No other history is available. SOCIAL HISTORY: Lives with his mother. ALLERGIES: He has no known drug allergies. MEDICATIONS AT HOME: Include methadone, amlodipine. REVIEW OF SYSTEMS: Not obtainable. FAMILY HISTORY: Not available as well. PHYSICAL EXAMINATION: Vital Signs: His temperature is 101.3 rectal. Pulse is 100. Blood pressure is 112/73. Respiratory rate of 18. HEENT: He is normocephalic. His eyes are icteric. He is intubated and sedated. He is on 40% FiO2. Lungs: Diminished breath sounds at the bases. Heart: Regular rate and rhythm. Abdomen: Distended. He has diminished bowel sounds. Extremities: Without edema. Skin: He has no rash. LABORATORY DATA: White count is 8.6, hemoglobin is 12.6, platelets are 138. BUN is 21 and creatinine 1.7, with a total bilirubin of 14, an AST of 220, an ALT of 87, and alkaline phosphatase of 232. Urinalysis has 2+ leukocyte esterase and 90 white cells. Urine toxicology had methadone and benzodiazepines. His HIV status is negative. Hep D surface antibody was negative as was an RPR. Hepatitis serology is pending. He had a chest x-ray that shows no infiltrate. He had an abdominal ultrasound that shows marked, diffuse fatty infiltration of the liver with associated hepatomegaly. No obvious sonographic evidence of cholelithiasis, gallbladder overdistention, and the CBD diameter appears unremarkable. He had a CAT scan of his abdomen and pelvis on arrival, that showed marked, diffuse hepatic steatosis, moderate gallbladder overdistention. On either imaging studies, there is no ascites. In summary, this is a 38-year-old man admitted from detoxification with heavy alcohol use, admitted with abnormal liver function tests, most likely alcohol withdrawal, extremely agitated, requiring intubation, who presented with renal failure as well. He now has: 1. Fever. I would agree with cultures and broad spectrum. He has been on ceftriaxone since admission. I would agree with switch to Zosyn. He got 1 dose of vancomycin for broad-spectrum coverage while awaiting repeat blood cultures. Overall prognosis is extremely poor given his advanced liver disease. 2. Acute kidney injury, appears to be better with hydration. 3. Alcoholic hepatitis. 4. Acute respiratory failure. Further recommendations to follow. JACKELINE MENDES M.D. [id number]
[2019-01-19 19:09] LABS: HEP B CORE AB, TOT Negative (Negative)
[2019-01-19] MEDS: CHLORHEXIDINE GLUCONATE 4% CLEANSER FOR DECOLONIZATION TP SCH (21:17)
[2019-01-20] MEDS ORDERED: DEXTROSE 5%-WATER - 50 ML IVPB ONE ×3 (02:21→16:37)
[2019-01-20] MEDS ORDERED: PIPERACILLIN/TAZOBACTAM 3.375 GM VIAL IVPB ONE ×3 (02:21→16:37)
[2019-01-20] MEDS: PIPERACILLIN/TAZOB 3.375 GM 3.375 GM in DEXTROSE 5%-WATER - 50 ML IVPB SCH ×3 (02:26→17:39)
[2019-01-20] MEDS: PROPOFOL 1,000,000 MCG/100 ML VIAL IVPB SCH ×4 (02:27→16:30)
[2019-01-20] MEDS: HEPARIN NA (PORCINE) 5,000 UNITS/ML 1ML VIAL SQ SCH ×3 (05:13→21:17)
[2019-01-20 06:56] LABS: BASO % 1.6 % (0-2.0); EOS % 2.6 % (0-4.5); HEMATOCRIT 36.5 % (35.4-49); HEMOGLOBIN 12.3 GM/dL (11.7-16.9); LYMPH % 46.2 % (8-40); MCH 34.3 pg (25.7-33.7); MCHC 33.7 g/dl (32.0-35.9); MEAN CELL VOLUME 101.8 fl (80-96); MEAN PLT VOLUME 10.8 fl (7.5-11.1); MONO % 13.2 % (3.8-10.2); NEUT % 36.4 % (42.8-82.8); PLATELET COUNT 167 K/MM3 (134-434); RBC 3.59 M/mm3 (4.00-5.60); RDW 15.7 % (11.9-15.9); WHITE BLOOD COUNT 8.9 K/mm3 (4.0-10.0)
[2019-01-20 07:03] LABS: ALBUMIN 1.6 g/dl (3.4-5.0); BILIRUBIN,DIRECT 10.5 mg/dL (0.0-0.2); BILIRUBIN,TOTAL 12.2 mg/dL (0.2-1); BLOOD UREA NITROGEN 15.6 mg/dL (7-18); CALCIUM 7.5 mg/dL (8.5-10.1); MAGNESIUM 1.8 mg/dL (1.8-2.4); PHOSPHOROUS 2.2 mg/dL (2.5-4.9); POTASSIUM 3.5 mmol/L (3.5-5.1); TOT PROT 5.4 g/dl (6.4-8.2)
[2019-01-20] MEDS: FENTANYL INJECTION 500 MCG in DEXTROSE 5%-WATER - 90 ML IVPB SCH (07:15)
--- NOTE | 2019-01-20 09:23 | PN ---
Teaching Attending Note Name of Resident: Yennifer Terrell ATTENDING PHYSICIAN STATEMENT I saw and evaluated the patient. I reviewed the resident's note and discussed the case with the resident. I agree with the resident's findings and plan as documented. SUBJECTIVE: Patient in icu sedated intubated. OBJECTIVE: Vital Signs Temperature 100.7 F H 01/20/19 08:00 Pulse Rate 95 H 01/20/19 08:20 Respiratory Rate 23 H 01/20/19 08:20 Blood Pressure 116/79 01/20/19 08:00 O2 Sat by Pulse Oximetry (%) 96 01/20/19 08:20 GENERAL: The patient is intubated ,sedated . NECK: Trachea midline, full range of motion, supple. LUNGS: intubated, decreased Breath sounds at the basis. HEART: NSR, S1, S2 positive. ABDOMEN: Soft, distended, hypoactive BS EXTREMITIES: 2+ pulses, warm, well-perfused, trace edema NEUROLOGICAL: unable to assess SKIN: Warm, dry, normal turgor. CBCD WBC 8.9 K/mm3 (4.0-10.0) 01/20/19 05:45 RBC 3.59 M/mm3 (4.00-5.60) L 01/20/19 05:45 Hgb 12.3 GM/dL (11.7-16.9) 01/20/19 05:45 Hct 36.5 % (35.4-49) 01/20/19 05:45 MCV 101.8 fl (80-96) H 01/20/19 05:45 MCHC 33.7 g/dl (32.0-35.9) 01/20/19 05:45 RDW 15.7 % (11.9-15.9) 01/20/19 05:45 Plt Count 167 K/MM3 (134-434) D 01/20/19 05:45 MPV 10.8 fl (7.5-11.1) 01/20/19 05:45 CMP Sodium 135 mmol/L (136-145) L 01/20/19 05:45 Potassium 3.5 mmol/L (3.5-5.1) 01/20/19 05:45 Chloride 99 mmol/L (98-107) 01/20/19 05:45 Carbon Dioxide 28 mmol/L (21-32) 01/20/19 05:45 Anion Gap 8 MMOL/L (8-16) 01/20/19 05:45 BUN 15.6 mg/dL (7-18) 01/20/19 05:45 Creatinine 1.0 mg/dL (0.55-1.3) 01/20/19 05:45 Random Glucose 85 mg/dL (74-106) 01/20/19 05:45 Calcium 7.5 mg/dL (8.5-10.1) L 01/20/19 05:45 Total Bilirubin 12.2 mg/dL (0.2-1) H 01/20/19 05:45 AST 160 U/L (15-37) H 01/20/19 05:45 ALT 67 U/L (13-61) H 01/20/19 05:45 Alkaline Phosphatase 214 U/L (45-117) H 01/20/19 05:45 Total Protein 5.4 g/dl (6.4-8.2) L 01/20/19 05:45 Albumin 1.6 g/dl (3.4-5.0) L 01/20/19 05:45 CARDIAC ENZYMES Creatine Kinase 301 U/L (26-308) 01/18/19 06:00 Troponin I < 0.02 ng/ml (0.00-0.05) 01/16/19 14:19 Current Medications Generic Name Dose Route Start Last Admin Trade Name Arturo PRN Reason Stop Dose Admin Chlorhexidine Gluconate 1 applic 01/16/19 22:00 01/19/19 21:17 Hibiclens For Decolonization - TP 1 applic HS MIESHA Administration Folic Acid 1 mg 01/17/19 10:00 01/19/19 09:34 Folic Acid - PO Not Given DAILY [facility] Heparin Sodium (Porcine) 5,000 unit 01/19/19 14:00 01/20/19 05:13 Heparin - SQ 5,000 unit TID MIESHA Administration Propofol 1,000,000 mcg in 100 mls @ 2.722 mls/hr 01/17/19 06:30 01/20/19 06: 34 Diprivan - IVPB 35 mcg/kg/min TITR MIESHA 19.051 mls/hr Administration Protocol 5 MCG/KG/MIN Fentanyl 500 mcg/ Dextrose 100 mls @ 10 mls/hr 01/17/19 07:15 01/19/19 23:16 IVPB 75 mcg/hr TITR MIESHA 15 mls/hr Administration Protocol 50 MCG/HR Lorazepam 40 mg/ Dextrose 120 mls @ 3 mls/hr 01/17/19 08:30 01/19/19 19:58 IVPB 1 mg/hr TITR MIESHA 3 mls/hr Titration Protocol 1 MG/HR Lactated Ringer's 1,000 ml in 1,000 mls @ 150 mls/hr 01/18/19 09:52 01/19/19 10:03 Lactated Ringers Solution IV 150 mls/hr ASDIR MIESHA Administration Piperacillin Sod/Tazobactam 50 mls @ 100 mls/hr 01/20/19 02:00 01/20/19 02:26 Sod 3.375 gm/ Dextrose IVPB 100 mls/hr Q8H-IV MIESHA Administration Protocol Mupirocin 1 applic 01/16/19 22:00 01/19/19 21:18 Bactroban Ointment (For Decolonization) - NS 01/21/19 21:59 1 applic BID MIESHA Administration Rifaximin 550 mg 01/16/19 19:01 01/19/19 21:19 Xifaxan - PO Not Given BID MIESHA Thiamine HCl 200 mg 01/17/19 10:00 01/19/19 21:17 Vitamin B1 Injection - IVPB 01/20/19 09:59 200 mg BID MIESHA Administration Home Medications Medication Instructions Recorded Methadone [Dolophine -] 120 mg PO DAILY 07/20/18 Amlodipine Besylate [Norvasc -] 10 mg PO DAILY #30 tablet 09/07/18 Methadone [Dolophine -] 120 mg PO DAILY 01/14/19 NK [No Known Home Medication] 01/14/19 ASSESSMENT AND PLAN: Patient is a 38 y/o male with PMHx HTN, alcohol withdrawal sz (1.5 pints vodka daily), opiates (on methadone), who initially presented to [facility] for alcohol detox yesterday on 01/15/19 patient was admitted to ICU for severe alcohol withdrawal, with acute respiratory failure likely due DT's. #Fever Tmax of 102.7 , on vanco and zosyn ID consulted, sputum is growing Strep Agalactiae Group B, ID on the case, Us of abdomen marked diffuse infiltration of the liver, hepatomegaly, gallbladder overdistention , mild diffuse nonspecific gallbladder wall thickening which may be the basis of hepatic disease vs acute cholecystitis. surgical evaluation aapreciated # s/p Intubation on sedation: due to DTs /active alcohol withdrawel :sedated on propofol, lorazepam drip continue #Acute Alcohol withdrawals/Delerium Tremors continue: on thiamine IV, folate continue #Acute on Chronic Liver disease with Alcoholic hepatitis: continue to follow up bili levels # Hepatic encephalopathy: On lactulose 30gm bid continue, repeat lab in am , HCV is neg. follow the rest of hepatitis panel, HIV, monitor labs rest of mangement per GI and ICU team #DAMIAN: baseline 1.2-->1.8-->3.0-->1.7--> 1.0 improved today , rest per nephro # Hyperbilirubinemia due to alcoholic liver disease will continue to monitor, trending down # acute transaminits due to alcoholic liver disease trending down continue to monitor DVT Px: scds, No ac since platelets are 78k-->98K-->138--> 167 today
[2019-01-20] MEDS ORDERED: PT OWN MED DRAWER 7, Y5N ONE (09:57)
[2019-01-20 11:04] LABS: ANISOCYTOSIS 1+; MACROCYTOSIS 1+; OVALOCYTE 1+; PLATELET ESTIMATE NORMAL; TARGET CELLS 1+; TEAR DROP CELLS 1+
[2019-01-20] MEDS: LACTATED RINGERS SOLUTION 1,000 ML/1,000 ML INFUS.BAG IV SCH (11:20)
[2019-01-20] MEDS: RIFAXIMIN 550 MG TABLET (UD) PO SCH ×2 (11:21→17:40)
[2019-01-20] MEDS: MUPIROCIN 2% TOPICAL OINTMENT FOR DECOLONIZATION NS SCH ×2 (11:21→21:16)
[2019-01-20] MEDS: FOLIC ACID 1 MG TABLET (FP) PO SCH ×2 (11:21→17:40)
[2019-01-20] MEDS ORDERED: VANCOMYCIN 1 GRAM (PRE-DOCKED) 1,000 MG/250 ML BAG IVPB ONE (11:25)
--- NOTE | 2019-01-20 11:29 | PN ---
Progress Note, Physician History of Present Illness: REMAINS FEBRILE INTUBATED NO ACUTE DISTRESS REPEAT C/S PENDING - Current Medication List Current Medications: Active Medications Chlorhexidine Gluconate (Hibiclens For Decolonization -) 1 applic TP HS [facility] Last Admin: 01/19/19 21:17 Dose: 1 applic Folic Acid (Folic Acid -) 1 mg PO DAILY [facility] Last Admin: 01/20/19 11:21 Dose: Not Given Heparin Sodium (Porcine) (Heparin -) 5,000 unit SQ TID MIESHA Last Admin: 01/20/19 05:13 Dose: 5,000 unit Propofol (Diprivan -) 1,000,000 mcg in 100 mls @ 2.722 mls/hr IVPB TITR MIESHA; Protocol Last Admin: 01/20/19 06:34 Dose: 35 mcg/kg/min, 19.051 mls/hr Fentanyl 500 mcg/ Dextrose 100 mls @ 10 mls/hr IVPB TITR MIESHA; Protocol Last Admin: 01/20/19 07:15 Dose: Not Given Lorazepam 40 mg/ Dextrose 120 mls @ 3 mls/hr IVPB TITR MIESHA; Protocol Last Titration: 01/20/19 10:00 Dose: 0 mg/hr, 0 mls/hr Lactated Ringer's (Lactated Ringers Solution) 1,000 ml in 1,000 mls @ 150 mls/ hr IV ASDIR MIESHA Last Admin: 01/20/19 11:20 Dose: 150 mls/hr Piperacillin Sod/Tazobactam (Sod 3.375 gm/ Dextrose) 50 mls @ 100 mls/hr IVPB Q8H-IV MIESHA; Protocol Last Admin: 01/20/19 11:22 Dose: 100 mls/hr Vancomycin HCl 1,000 mg/ (Dextrose) 250 mls @ 166.667 mls/hr IVPB ONCE ONE; Protocol Stop: 01/20/19 12:54 Mupirocin (Bactroban Ointment (For Decolonization) -) 1 applic NS BID [facility] Stop: 01/21/19 21:59 Last Admin: 01/20/19 11:21 Dose: 1 applic Rifaximin (Xifaxan -) 550 mg PO BID [facility] Last Admin: 01/20/19 11:21 Dose: Not Given - Objective Vital Signs: Vital Signs Temperature 100.7 F H 01/20/19 08:00 Pulse Rate 95 H 01/20/19 08:20 Respiratory Rate 23 H 01/20/19 08:20 Blood Pressure 116/79 01/20/19 08:00 O2 Sat by Pulse Oximetry (%) 96 01/20/19 08:20 Constitutional: Yes: No Distress, Obese Eyes: Yes: Conjunctiva Clear Cardiovascular: Yes: Regular Rate and Rhythm, S1, S2 Respiratory: Yes: Mechanically Ventilated Gastrointestinal: Yes: Normal Bowel Sounds, Soft, Abdomen, Obese. No: Tenderness Labs: CBC, BMP 01/20/19 05:45 01/20/19 05:45 INR, PTT INR 1.30 (0.83-1.09) H 01/20/19 05:45 Assessment/Plan PROBABLE ALCOHOLIC HEPATITIS MULTI-ORGAN FAILURE RESP FAILURE HEPATIC FAILURE RENAL FAILURE- IMPROVED AWAIT C/S CONTINUE EMPIRIC ZOSYN REDOSE VANCOMYCIN
--- NOTE | 2019-01-20 13:00 | PN ---
Teaching Attending Note Name of Resident: Saud Sargent ATTENDING PHYSICIAN STATEMENT I saw and evaluated the patient. I reviewed the resident's note and discussed the case with the resident. I agree with the resident's findings and plan as documented. SUBJECTIVE: Pt seen and examined in the ICU. Remains intubated, sedated. Tachypneic off sedation. Persistently febrile. OBJECTIVE: Vital Signs Period Temp Pulse Resp BP Sys/Phipps Pulse Ox Last 24 Hr 100.1 F-103.2 F 83-107 13-32 106-125/67-83 96-98 Intake & Output 01/17/19 01/18/19 01/19/19 01/20/19 23:59 23:59 23:59 23:59 Intake Total 3305 4788 5117.7 1294.3 Output Total 825 800 900 400 Balance 2480 3988 4217.7 894.3 Weight 104.922 kg 104.78 kg 95.753 kg 111.448 kg Gen: intubated, sedated Heart: RRR Lung: decreased breath sounds at the bases Abd: distended, nontender Ext: no edema CBC, BMP 01/20/19 05:45 01/20/19 05:45 Active Medications Chlorhexidine Gluconate (Hibiclens For Decolonization -) 1 applic TP HS MIESHA Last Admin: 01/19/19 21:17 Dose: 1 applic Folic Acid (Folic Acid -) 1 mg PO DAILY MIESHA Last Admin: 01/20/19 11:21 Dose: Not Given Heparin Sodium (Porcine) (Heparin -) 5,000 unit SQ TID MIESHA Last Admin: 01/20/19 05:13 Dose: 5,000 unit Propofol (Diprivan -) 1,000,000 mcg in 100 mls @ 2.722 mls/hr IVPB TITR MIESHA; Protocol Last Titration: 01/20/19 11:42 Dose: 25 mcg/kg/min, 13.608 mls/hr Fentanyl 500 mcg/ Dextrose 100 mls @ 10 mls/hr IVPB TITR MIESHA; Protocol Last Titration: 01/20/19 10:00 Dose: 0 mcg/hr, 0 mls/hr Lorazepam 40 mg/ Dextrose 120 mls @ 3 mls/hr IVPB TITR MIESHA; Protocol Last Titration: 01/20/19 10:00 Dose: 0 mg/hr, 0 mls/hr Lactated Ringer's (Lactated Ringers Solution) 1,000 ml in 1,000 mls @ 150 mls/ hr IV ASDIR MIESHA Last Admin: 01/20/19 11:20 Dose: 150 mls/hr Piperacillin Sod/Tazobactam (Sod 3.375 gm/ Dextrose) 50 mls @ 100 mls/hr IVPB Q8H-IV MIESHA; Protocol Last Admin: 01/20/19 11:22 Dose: 100 mls/hr Mupirocin (Bactroban Ointment (For Decolonization) -) 1 applic NS BID [facility] Stop: 01/21/19 21:59 Last Admin: 01/20/19 11:21 Dose: 1 applic Rifaximin (Xifaxan -) 550 mg PO BID [facility] Last Admin: 01/20/19 11:21 Dose: Not Given ASSESSMENT AND PLAN: Acute Respiratory Failure Acute Alcohol Withdrawal/Delerium Tremens Alcoholic Hepatitis Acute Kidney Injury Hepatic Encephalopathy Coagulopathy Lactic Acidosis UTI Hyponatremia Methadone Maintenance HTN - continue antibiotics - f/u cultures - IVF - monitor urine output, creatinine - continue lactulose, rifaximin - daily sedation vacations to assess mental status - spontaneous breathing trials when mental status improved - DVT/GI prophylaxis - continue ICU monitoring critical care time spent in reviewing chart, evaluating patient and formulating plan 35 min
[2019-01-20 14:05] LABS: INR 1.3 (0.83-1.09); PROTHROMBIN TIME (PATIENT) 15.4 SEC (9.7-13.0)
--- NOTE | 2019-01-20 14:05 | PN ---
Physical Exam: SUBJECTIVE: Patient seen and examined at bedside. Febrile overnight, temperature decreasing. Tachycardic overnight normalizing now. Patient intubated and sedated, unable to obtain ROS OBJECTIVE: GEN: Intubated and sedated HEENT: NC/AT CV: S1/S2, RRR, no m/r/g LUNG: CTAB, no wheezes, crackles, rales, rhonchi. mechanically ventilated GI: +BS, distended EXTREMITIES: No LE edema. SKIN: warm, dry, normal turgor PSYCH: sedated Vital Signs Period Temp Pulse Resp BP Sys/Phipps Pulse Ox Last 24 Hr 100.1 F-103.2 F 83-107 13-32 106-125/67-83 96-98 Laboratory Results - last 24 hr 01/17/19 01/20/19 01/20/19 06:38 05:45 05:45 WBC RBC Hgb Hct MCV MCH MCHC RDW Plt Count MPV Absolute Neuts (auto) Neutrophils % Neutrophils % (Manual) Band Neutrophils % Lymphocytes % Lymphocytes % (Manual) Monocytes % Monocytes % (Manual) Eosinophils % Eosinophils % (Manual) Basophils % Basophils % (Manual) Myelocytes % (Man) Promyelocytes % (Man) Blast Cells % (Manual) Nucleated RBC % Metamyelocytes Hypochromia Platelet Estimate Polychromasia Poikilocytosis Anisocytosis Microcytosis Macrocytosis Target Cells Tear Drop Cells Ovalocytes PT with INR 13.30 H INR 1.13 H Sodium Potassium Chloride Carbon Dioxide Anion Gap BUN Creatinine Est GFR (CKD-EPI)AfAm Est GFR (CKD-EPI)NonAf Random Glucose Calcium Phosphorus Magnesium Total Bilirubin Direct Bilirubin AST ALT Alkaline Phosphatase Total Protein Albumin Random Vancomycin < 0.8 L Hep A IgM Ab Confirm Negative Hepatitis A Ab Total Positive H Hep Bs Antigen Negative Hep Bs Antibody Non reactive Hep B Core Total Ab Negative Hep B Core IgM Ab Negative Hepatitis Be Antibody Negative Hepatitis Be Antigen Negative 01/20/19 01/20/19 05:45 05:45 WBC 8.9 RBC 3.59 L Hgb 12.3 Hct 36.5 MCV 101.8 H MCH 34.3 H MCHC 33.7 RDW 15.7 Plt Count 167 D MPV 10.8 Absolute Neuts (auto) 3.2 Neutrophils % 36.4 L D Neutrophils % (Manual) 46.5 D Band Neutrophils % 7.1 Lymphocytes % 46.2 H D Lymphocytes % (Manual) 16.2 D Monocytes % 13.2 H Monocytes % (Manual) 18 H D Eosinophils % 2.6 D Eosinophils % (Manual) 4.0 D Basophils % 1.6 Basophils % (Manual) 1.0 D Myelocytes % (Man) 4 H D Promyelocytes % (Man) 0 Blast Cells % (Manual) 0 Nucleated RBC % 0 Metamyelocytes 2 Hypochromia 0 Platelet Estimate Normal Polychromasia 1+ Poikilocytosis 0 Anisocytosis 1+ Microcytosis 0 Macrocytosis 1+ Target Cells 1+ Tear Drop Cells 1+ Ovalocytes 1+ PT with INR INR Sodium 135 L Potassium 3.5 Chloride 99 Carbon Dioxide 28 Anion Gap 8 BUN 15.6 Creatinine 1.0 Est GFR (CKD-EPI)AfAm 110.17 Est GFR (CKD-EPI)NonAf 95.05 Random Glucose 85 Calcium 7.5 L Phosphorus 2.2 L Magnesium 1.8 Total Bilirubin 12.2 H Direct Bilirubin 10.5 H AST 160 H ALT 67 H Alkaline Phosphatase 214 H Total Protein 5.4 L Albumin 1.6 L Random Vancomycin Hep A IgM Ab Confirm Hepatitis A Ab Total Hep Bs Antigen Hep Bs Antibody Hep B Core Total Ab Hep B Core IgM Ab Hepatitis Be Antibody Hepatitis Be Antigen Active Medications Generic Name Dose Route Start Last Admin Trade Name Freq PRN Reason Stop Dose Admin Chlorhexidine Gluconate 1 applic 01/16/19 22:00 01/19/19 21:17 Hibiclens For Decolonization - TP 1 applic HS MIESHA Administration Folic Acid 1 mg 01/17/19 10:00 01/20/19 11:21 Folic Acid - PO Not Given DAILY MIESHA Heparin Sodium (Porcine) 5,000 unit 01/19/19 14:00 01/20/19 05:13 Heparin - SQ 5,000 unit TID MIESHA Administration Propofol 1,000,000 mcg in 100 mls @ 2.722 mls/hr 01/17/19 06:30 01/20/19 11: 42 Diprivan - IVPB 25 mcg/kg/min TITR MIESHA 13.608 mls/hr Titration Protocol 5 MCG/KG/MIN Fentanyl 500 mcg/ Dextrose 100 mls @ 10 mls/hr 01/17/19 07:15 01/20/19 10:00 IVPB 0 mcg/hr TITR MIESHA 0 mls/hr Titration Protocol 50 MCG/HR Lorazepam 40 mg/ Dextrose 120 mls @ 3 mls/hr 01/17/19 08:30 01/20/19 10:00 IVPB 0 mg/hr TITR MIESHA 0 mls/hr Titration Protocol 1 MG/HR Lactated Ringer's 1,000 ml in 1,000 mls @ 150 mls/hr 01/18/19 09:52 01/20/19 11:20 Lactated Ringers Solution IV 150 mls/hr ASDIR MIESHA Administration Piperacillin Sod/Tazobactam 50 mls @ 100 mls/hr 01/20/19 02:00 01/20/19 11:22 Sod 3.375 gm/ Dextrose IVPB 100 mls/hr Q8H-IV MIESHA Administration Protocol Mupirocin 1 applic 01/16/19 22:00 01/20/19 11:21 Bactroban Ointment (For Decolonization) - NS 01/21/19 21:59 1 applic BID MIESHA Administration Rifaximin 550 mg 01/16/19 19:01 01/20/19 11:21 Xifaxan - PO Not Given BID MIESHA ASSESSMENT/PLAN: 38M [facility] pt (etoh detox 01/15/19) PMH HTN, polysubstance abuse(1.5 pints vodka daily, on methadone) admitted to ICU for severe alcohol withdrawal with acute respiratory failure likely 2/2 DT's. Neuro - Acute alcohol withdrawal/Delirium Tremens - will assess CIWA once extubated. - sedated; currently on propofol gtt - trial of sedation break, patient was agitated and tachypnic, placed back on sedation Pulmonary - Acute respiratory failure 2/2 Alcoholic hepatitis induced DT's - attempted to wean off sedation pt was tachypneic, unable to protect airway - remains intubated and sedated - c/w vent GI - Acute liver failure likely 2/2 alcoholic hepatitis/Hepatic encephalopathy - GI recs appreciated - Hold steroids at this moment. - HCV Ab neg - HAV POS - HBV neg - HIV neg - GI US: Impression: Somewhat limited visualization as noted above. Marked diffuse fatty infiltration of the liver is seen with associated hepatomegaly. No obvious sonographic evidence of cholelithiasis allowing for partially obscuring inspissated bile/sludge. Gallbladder overdistention is seen. There is mild diffuse nonspecific gallbladder wall thickening which may be on the basis of hepatic disease versus acute cholecystitis. No definite biliary tract dilatation is identified. - primary team concerned re: cholecystisis; surgery consulted - OGT inserted - resume lactulose via OGT - c/w rifaximin - c/w banana bag, IV LR 100 cc/hr, thiamine, folate Renal - DAMIAN, likely in setting of Type I (severe) hepatorenal syndrome/cirrhosis - (Cr baseline 1.2) - c/w IVF. - can send lytes in AM - Per Dr. Purvis- Urine studies indicative of renal hypoprofusion with preserved tubular function. Improving renal ftn. - will maintain Ruvalcaba for strict I and O - Urine studies: FeNa- 0.1 % - Ruvalcaba, strict I/O- pt making adequate amount of urine. - c/w LR 150cc/h x24h - No NSAIDs - Avoid contrast exposure - HD not needed at this moment - monitor UrO, Cr Heme - Thrombocytopenia - likely 2/2 cirrhosis, resolved. - will start heparin 5K TID. - continuing to monitor ID - likely UTI/R/o other causes of infn - r/o any source of infection. currently febrile (101), w/ white count - spiked fever overnight on abx, lisa cx sent - BCx, UCx NGTD - f/u new Cx - Sputum Cx Group B strep - UA- 2+ LE and Nitrites - normalized lactate - CXR Report 01/20/19: new bibasilar changes. NGT in LUQ/stomach. - d/c rocephin, placed on vanco and zosyn for MRSA and pseumonas coverage in hospital. ID recs appreciated. - c/w vanc and zosyn FENGI IV LR 150 cc/hr continue to follow lytes replete PRN NPO PPX - Heparin 5K TID Visit type - Emergency Visit Emergency Visit: Yes ED Registration Date: 01/16/19 Care time: The patient presented to the Emergency Department on the above date and was hospitalized for further evaluation of their emergent condition. - New Patient This patient is new to me today: No - Critical Care Critical Care patient: Yes Total Critical Care Time (in minutes): 35 Critical Care Statement: The care of this patient involved high complexity decision making to prevent further life threatening deterioration of the patient 's condition and/or to evaluate & treat vital organ system(s) failure or risk of failure.
--- NOTE | 2019-01-20 15:10 | CONSULT ---
Consult Consult Specialty:: General Surgery Referred by:: Abril Perla Reason for Consultation:: ?cholecystitis - History of Present Illness Chief Complaint: pt intubated History of Present Illness: HISTORY FROM CHART ONLY, limited - pt is intubated and sedated 38yo M with HTN, alcoholism, past opiate abuse on methadone, who presented to [facility] for detox, was noted to have high ammonia and was sent to ER. LFTs and bili also elevated, CT showed distended gallbladder with some sludge; US has since showed no stones and normal CBD. He is jaundiced as well. He was combative and in DTs in the ER, has been febrile, and was intubated for his protection on admission to ICU. He remains intubated and sedated at this time. He has been seen by GI, and is being treated for alcoholic hepatitis, DTs and withdrawal. Surgery was asked to assess. He is seen in ICU, no family currently present. He does not open eyes or respond to voice. He is on propofol drip. Labs are still significant for high but decreasing bilirubin and LFTs, normal wbc, mildly elevated INR, low albumin , improving renal function and normalized lactate. - History Source History Provided By: Medical Record Limitations to Obtaining History: Intubated - Past Medical History [employer]: Yes: Seizure (EtOH withdrawal seizures in past per chart) Cardio/Vascular: Yes: HTN Infectious Disease: Yes: Other (PPD + per the chart) Psych: Yes: Addictions (alcoholic) - Past Surgical History Past Surgical History: Yes: None (none known) - Alcohol/Substance Use Hx Alcohol Use: Yes (1-2 pints vodka/day - recently up to 2L/day) History of Substance Use: reports: Heroin (in past - on methadone) - Smoking History Smoking history: Current every day smoker Have you smoked in the past 12 months: Yes - Social History Usual Living Arrangement: With Parent ADL: Independent Home Medications - Allergies Allergies/Adverse Reactions: Allergies Allergy/AdvReac Type Severity Reaction Status Date / Time No Known Allergies Allergy Verified 01/16/19 13:29 - Home Medications Home Medications: Ambulatory Orders Methadone [Dolophine -] 120 mg PO DAILY 07/20/18 Amlodipine Besylate [Norvasc -] 10 mg PO DAILY #30 tablet 09/07/18 Methadone [Dolophine -] 120 mg PO DAILY 01/14/19 NK [No Known Home Medication] 01/14/19 Family Disease History - Family Disease History Family Disease History: Diabetes: Mother (Alive), Other: Father (alcohol , ), Sister (2, healthy) Other Family History: No children. No family history of liver disease Review of Systems Unable to obtain ROS, reason: intubated/sedated Physical Exam Vital Signs: Vital Signs Temperature 100.5 F H 01/20/19 11:51 Pulse Rate 94 H 01/20/19 11:51 Respiratory Rate 25 H 01/20/19 12:10 Blood Pressure 123/80 01/20/19 11:51 O2 Sat by Pulse Oximetry (%) 97 01/20/19 09:00 Constitutional: Yes: No Distress, Obese Eyes: Yes: Sclera Icterus, Other (crusty film at eyelids) HENT: Yes: Atraumatic, Normocephalic Neck: Yes: Supple, Trachea Midline Cardiovascular: Yes: Regular Rate and Rhythm Respiratory: Yes: Regular, Intubated, Mechanically Ventilated, Rhonchi ( bilaterally) Gastrointestinal: Yes: Soft, Abdomen, Obese, Distention (tympanic - obese vs distended?), Hypoactive Bowel Sounds (absent) ...Rectal Exam: Yes: Deferred Renal/: Yes: Ruvalcaba Present, Other (dark, orange urine). No: Hematuria Musculoskeletal: No: Joint Stiffness, Joint Swelling Extremities: No: Cool, Cyanosis Edema: Yes (generalized) Edema: LUE: 1+, RUE: 1+, LLE: 1+, RLE: 1+ Peripheral Pulses WNL: Yes Integumentary: Yes: Jaundice. No: Rash Neurological: Yes: Other (sedated/intubated - does not respond to voice). No: Alert Psychiatric: No: Alert, Agitated Labs: CBC, BMP 01/20/19 05:45 01/20/19 05:45 CMP Sodium 135 mmol/L (136-145) L 01/20/19 05:45 Potassium 3.5 mmol/L (3.5-5.1) 01/20/19 05:45 Chloride 99 mmol/L (98-107) 01/20/19 05:45 Carbon Dioxide 28 mmol/L (21-32) 01/20/19 05:45 Anion Gap 8 MMOL/L (8-16) 01/20/19 05:45 BUN 15.6 mg/dL (7-18) 01/20/19 05:45 Creatinine 1.0 mg/dL (0.55-1.3) 01/20/19 05:45 Est GFR (CKD-EPI)AfAm 110.17 01/20/19 05:45 Est GFR (CKD-EPI)NonAf 95.05 01/20/19 05:45 Random Glucose 85 mg/dL (74-106) 01/20/19 05:45 Lactic Acid 1.0 mmol/L (0.4-2.0) 01/17/19 06:38 Calcium 7.5 mg/dL (8.5-10.1) L 01/20/19 05:45 Phosphorus 2.2 mg/dL (2.5-4.9) L 01/20/19 05:45 Magnesium 1.8 mg/dL (1.8-2.4) 01/20/19 05:45 Total Bilirubin 12.2 mg/dL (0.2-1) H 01/20/19 05:45 Direct Bilirubin 10.5 mg/dL (0.0-0.2) H 01/20/19 05:45 AST 160 U/L (15-37) H 01/20/19 05:45 ALT 67 U/L (13-61) H 01/20/19 05:45 Alkaline Phosphatase 214 U/L (45-117) H 01/20/19 05:45 Ammonia 56.90 umol/L (11-32) H 01/16/19 14:19 Creatine Kinase 301 U/L (26-308) 01/18/19 06:00 Creatine Kinase Index 0.4 % (0.0-5.0) 01/18/19 06:00 CK-MB (CK-2) 1.3 ng/mL (0.5-3.6) 01/18/19 06:00 Troponin I < 0.02 ng/ml (0.00-0.05) 01/16/19 14:19 Total Protein 5.4 g/dl (6.4-8.2) L 01/20/19 05:45 Albumin 1.6 g/dl (3.4-5.0) L 01/20/19 05:45 INR, PTT INR 1.30 (0.83-1.09) H 01/20/19 05:45 Urine Test Results Urine Color Dk yellow 01/18/19 12:00 Urine Appearance Turbid 01/18/19 12:00 Urine pH 5.0 (5.0-8.0) 01/18/19 12:00 Ur Specific [place] 1.030 (1.010-1.035) 01/18/19 12:00 Urine Protein 1+ (NEGATIVE) H 01/18/19 12:00 Urine Glucose (UA) Negative (NEGATIVE) 01/18/19 12:00 Urine Ketones Negative (NEGATIVE) 01/18/19 12:00 Urine Blood 2+ (NEGATIVE) H 01/18/19 12:00 Urine Nitrite Positive (NEGATIVE) H 01/18/19 12:00 Urine Bilirubin 3+ (NEGATIVE) H 01/18/19 12:00 Ur Leukocyte Esterase 2+ (NEGATIVE) H 01/18/19 12:00 Microbiology 01/19/19 18:00 Gram Stain - Final Sputum - Endotrachea Suction/Ventilator 01/19/19 09:25 Blood Culture - Preliminary Blood - Peripheral Venous NO GROWTH OBTAINED AFTER 24 HOURS, INCUBATION TO CONTINUE FOR 4 DAYS. 01/19/19 09:30 Blood Culture - Preliminary Blood - Peripheral Venous NO GROWTH OBTAINED AFTER 24 HOURS, INCUBATION TO CONTINUE FOR 4 DAYS. 01/19/19 13:45 Urine Culture - Final Urine - Urine Ruvalcaba NO GROWTH OBTAINED 01/17/19 06:38 Blood Culture - Preliminary Blood - Peripheral Venous NO GROWTH OBTAINED AFTER 72 HOURS, INCUBATION TO CONTINUE FOR 2 DAYS. 01/17/19 06:38 Blood Culture - Preliminary Blood - Peripheral Venous NO GROWTH OBTAINED AFTER 72 HOURS, INCUBATION TO CONTINUE FOR 2 DAYS. Imaging - Results Cat Scan: Report Reviewed, Image Reviewed (hepatomegaly, distended gallbladder, no ascites) Ultrasound: Report Reviewed Problem List - Problems (1) Delirium tremens Assessment/Plan: medical management defer to medicine, ICU and GI detox consultation as needed intubated/sedated still with fever and varying vitals Code(s): F10.231 - ALCOHOL DEPENDENCE WITH WITHDRAWAL DELIRIUM (2) Acute respiratory failure Code(s): J96.00 - ACUTE RESPIRATORY FAILURE, UNSP W HYPOXIA OR HYPERCAPNIA Qualifiers: Respiratory failure complication: unspecified whether with hypoxia or hypercapnia Qualified Code(s): J96.00 - Acute respiratory failure, unspecified whether with hypoxia or hypercapnia (3) Alcoholic hepatitis Assessment/Plan: hepatitis panel negative except Hep A no evidence of primary gallbladder/biliary pathology no role for surgical intervention identified Code(s): K70.10 - ALCOHOLIC HEPATITIS WITHOUT ASCITES Qualifiers: Ascites presence: without ascites Qualified Code(s): K70.10 - Alcoholic hepatitis without ascites (4) Fever Code(s): R50.9 - FEVER, UNSPECIFIED Qualifiers: Fever type: due to other condition Qualified Code(s): R50.81 - Fever presenting with conditions classified elsewhere (5) Hyperammonemia Code(s): E72.20 - DISORDER OF UREA CYCLE METABOLISM, UNSPECIFIED (6) Hypertension Code(s): I10 - ESSENTIAL (PRIMARY) HYPERTENSION Qualifiers: Hypertension type: essential hypertension Qualified Code(s): I10 - Essential (primary) hypertension (7) Methadone maintenance therapy patient Code(s): F11.20 - OPIOID DEPENDENCE, UNCOMPLICATED (8) Nicotine dependence Code(s): F17.200 - NICOTINE DEPENDENCE, UNSPECIFIED, UNCOMPLICATED Qualifiers: Nicotine product type: cigarettes Substance use status: uncomplicated Qualified Code(s): F17.210 - Nicotine dependence, cigarettes, uncomplicated Assessment/Plan This patient is critically ill. Time spent reviewing chart, examining patient, talking with providers and/or family and documentation is 35 minutes. Will sign off - no surgical issues identified Please call with questions as needed Thank you for the opportunity to participate in the care of this patient.
[2019-01-20] MEDS ORDERED: LACTATED RINGERS SOLUTION 1,000 ML/1,000 ML INFUS.BAG IV SCH (16:05)
--- NOTE | 2019-01-20 16:05 | PN ---
Progress Note (short form) - Note Progress Note: Renal follow up for DAMIAN Seen and examined in the ICU intubated and sedated remains febrile FiOs is 40% making urine via cook BP stable Vital Signs Temperature 100.3 F H 01/20/19 14:00 Pulse Rate 88 01/20/19 14:00 Respiratory Rate 26 H 01/20/19 15:58 Blood Pressure 124/79 01/20/19 14:00 O2 Sat by Pulse Oximetry (%) 96 01/20/19 10:20 Intake & Output 01/17/19 01/18/19 01/19/19 01/20/19 23:59 23:59 23:59 23:59 Intake Total 3305 4788 5117.7 1594.3 Output Total 825 800 900 600 Balance 2480 3988 4217.7 994.3 Weight 104.922 kg 104.78 kg 95.753 kg 111.448 kg Intubated via ET Tube sedated RRR CTA distended Abd No LE edema CBC, BMP 01/20/19 05:45 01/20/19 05:45 Current Medications Chlorhexidine Gluconate (Hibiclens For Decolonization -) 1 applic TP HS MIESHA Last Admin: 01/19/19 21:17 Dose: 1 applic Folic Acid (Folic Acid -) 1 mg PO DAILY MIESHA Last Admin: 01/20/19 11:21 Dose: Not Given Heparin Sodium (Porcine) (Heparin -) 5,000 unit SQ TID MIESHA Last Admin: 01/20/19 15:21 Dose: 5,000 unit Propofol (Diprivan -) 1,000,000 mcg in 100 mls @ 2.722 mls/hr IVPB TITR MIESHA; Protocol Last Admin: 01/20/19 13:00 Dose: 50 mcg/kg/min, 27.215 mls/hr Fentanyl 500 mcg/ Dextrose 100 mls @ 10 mls/hr IVPB TITR MIESHA; Protocol Last Titration: 01/20/19 10:00 Dose: 0 mcg/hr, 0 mls/hr Lorazepam 40 mg/ Dextrose 120 mls @ 3 mls/hr IVPB TITR MIESHA; Protocol Last Titration: 01/20/19 10:00 Dose: 0 mg/hr, 0 mls/hr Lactated Ringer's (Lactated Ringers Solution) 1,000 ml in 1,000 mls @ 150 mls/ hr IV ASDIR MIESHA Last Admin: 01/20/19 11:20 Dose: 150 mls/hr Piperacillin Sod/Tazobactam (Sod 3.375 gm/ Dextrose) 50 mls @ 100 mls/hr IVPB Q8H-IV MIESHA; Protocol Last Admin: 01/20/19 11:22 Dose: 100 mls/hr Mupirocin (Bactroban Ointment (For Decolonization) -) 1 applic NS BID [facility] Stop: 01/21/19 21:59 Last Admin: 01/20/19 11:21 Dose: 1 applic Rifaximin (Xifaxan -) 550 mg PO BID [facility] Last Admin: 01/20/19 11:21 Dose: Not Given 38 year old gentleman with history of chronic alcohol abuse, hypertension who presented from Detox with AMS and found to have alcoholic hepatitis and developed DAMIAN. Cr was 2 on presentation and itinally improved now is 3. 1. Acute renal failure r/o ATN vs. AIN vs. HRS vs. acute GN (less likely) 2. Alcoholic hepatitis 3. Respiratory failure 4. Hx of hypertension Renal function improved to baseline Urine studies indicative of renal hypoprofusion with preserved tubular function Decrease IVF rate to 84cc per hour or as needed to maintain MAP CT showed no signs of obstruction maintain Cook for strict I and O Ricardo Purvis DO
--- NOTE | 2019-01-20 16:10 | PN ---
Physical Exam: SUBJECTIVE: Patient seen and examined. sedated. OBJECTIVE: Vital Signs Period Temp Pulse Resp BP Sys/Phipps Pulse Ox Last 24 Hr 100.1 F-103.2 F 83-107 13-32 106-124/67-83 96-98 GENERAL: The patient is sedated and intubated. Scleral icteris present. HEAD: Normal with no signs of trauma. ENT: ET tube in place LUNGS: clear to auscultation bilaterally, decreased breath sounds at the bases. HEART: Tachycardic, regular rhythm, S1, S2 without murmur, rub or gallop. ABDOMEN: Soft, nontender, distended globose abdomen EXTREMITIES: 2+ pulses, warm, well-perfused, no edema. Laboratory Results - last 24 hr 01/17/19 01/20/19 01/20/19 06:38 05:45 05:45 WBC RBC Hgb Hct MCV MCH MCHC RDW Plt Count MPV Absolute Neuts (auto) Neutrophils % Neutrophils % (Manual) Band Neutrophils % Lymphocytes % Lymphocytes % (Manual) Monocytes % Monocytes % (Manual) Eosinophils % Eosinophils % (Manual) Basophils % Basophils % (Manual) Myelocytes % (Man) Promyelocytes % (Man) Blast Cells % (Manual) Nucleated RBC % Metamyelocytes Hypochromia Platelet Estimate Polychromasia Poikilocytosis Anisocytosis Microcytosis Macrocytosis Target Cells Tear Drop Cells Ovalocytes PT with INR 15.40 H INR 1.30 H Sodium Potassium Chloride Carbon Dioxide Anion Gap BUN Creatinine Est GFR (CKD-EPI)AfAm Est GFR (CKD-EPI)NonAf Random Glucose Calcium Phosphorus Magnesium Total Bilirubin Direct Bilirubin AST ALT Alkaline Phosphatase Total Protein Albumin Random Vancomycin < 0.8 L Hep A IgM Ab Confirm Negative Hepatitis A Ab Total Positive H Hep Bs Antigen Negative Hep Bs Antibody Non reactive Hep B Core Total Ab Negative Hep B Core IgM Ab Negative Hepatitis Be Antibody Negative Hepatitis Be Antigen Negative 01/20/19 01/20/19 05:45 05:45 WBC 8.9 RBC 3.59 L Hgb 12.3 Hct 36.5 MCV 101.8 H MCH 34.3 H MCHC 33.7 RDW 15.7 Plt Count 167 D MPV 10.8 Absolute Neuts (auto) 3.2 Neutrophils % 36.4 L D Neutrophils % (Manual) 46.5 D Band Neutrophils % 7.1 Lymphocytes % 46.2 H D Lymphocytes % (Manual) 16.2 D Monocytes % 13.2 H Monocytes % (Manual) 18 H D Eosinophils % 2.6 D Eosinophils % (Manual) 4.0 D Basophils % 1.6 Basophils % (Manual) 1.0 D Myelocytes % (Man) 4 H D Promyelocytes % (Man) 0 Blast Cells % (Manual) 0 Nucleated RBC % 0 Metamyelocytes 2 Hypochromia 0 Platelet Estimate Normal Polychromasia 1+ Poikilocytosis 0 Anisocytosis 1+ Microcytosis 0 Macrocytosis 1+ Target Cells 1+ Tear Drop Cells 1+ Ovalocytes 1+ PT with INR INR Sodium 135 L Potassium 3.5 Chloride 99 Carbon Dioxide 28 Anion Gap 8 BUN 15.6 Creatinine 1.0 Est GFR (CKD-EPI)AfAm 110.17 Est GFR (CKD-EPI)NonAf 95.05 Random Glucose 85 Calcium 7.5 L Phosphorus 2.2 L Magnesium 1.8 Total Bilirubin 12.2 H Direct Bilirubin 10.5 H AST 160 H ALT 67 H Alkaline Phosphatase 214 H Total Protein 5.4 L Albumin 1.6 L Random Vancomycin Hep A IgM Ab Confirm Hepatitis A Ab Total Hep Bs Antigen Hep Bs Antibody Hep B Core Total Ab Hep B Core IgM Ab Hepatitis Be Antibody Hepatitis Be Antigen Active Medications Generic Name Dose Route Start Last Admin Trade Name Freq PRN Reason Stop Dose Admin Chlorhexidine Gluconate 1 applic 01/16/19 22:00 01/19/19 21:17 Hibiclens For Decolonization - TP 1 applic HS MIESHA Administration Folic Acid 1 mg 01/17/19 10:00 01/20/19 11:21 Folic Acid - PO Not Given DAILY MIESHA Heparin Sodium (Porcine) 5,000 unit 01/19/19 14:00 01/20/19 15:21 Heparin - SQ 5,000 unit TID MIESHA Administration Propofol 1,000,000 mcg in 100 mls @ 2.722 mls/hr 01/17/19 06:30 01/20/19 13: 00 Diprivan - IVPB 50 mcg/kg/min TITR MIESHA 27.215 mls/hr Administration Protocol 5 MCG/KG/MIN Fentanyl 500 mcg/ Dextrose 100 mls @ 10 mls/hr 01/17/19 07:15 01/20/19 10:00 IVPB 0 mcg/hr TITR MIESHA 0 mls/hr Titration Protocol 50 MCG/HR Lorazepam 40 mg/ Dextrose 120 mls @ 3 mls/hr 01/17/19 08:30 01/20/19 10:00 IVPB 0 mg/hr TITR MIESHA 0 mls/hr Titration Protocol 1 MG/HR Piperacillin Sod/Tazobactam 50 mls @ 100 mls/hr 01/20/19 02:00 01/20/19 11:22 Sod 3.375 gm/ Dextrose IVPB 100 mls/hr Q8H-IV MIESHA Administration Protocol Lactated Ringer's 1,000 ml in 1,000 mls @ 84 mls/hr 01/20/19 16:05 Lactated Ringers Solution IV ASDIR MIESHA Mupirocin 1 applic 01/16/19 22:00 01/20/19 11:21 Bactroban Ointment (For Decolonization) - NS 01/21/19 21:59 1 applic BID MIESHA Administration Rifaximin 550 mg 01/16/19 19:01 01/20/19 11:21 Xifaxan - PO Not Given BID MIESHA ASSESSMENT/PLAN: 38M [facility] pt (etoh detox 01/15/19) PMH HTN, polysubstance abuse(1.5 pints vodka daily, on methadone) admitted to ICU for severe alcohol withdrawal with DT 's. Acute alcohol withdrawal/Delirium Tremens will assess CIWA once extubated. weaning trial as per nurse :off sedation completely for 20 minutes, resp rate increased to 38, restarted propofol at 25 mcg, and gradually increased to 50 mcg /kg/minute. suctioned for mod chen yanick secretions from ett and orally. no bowel movement. abd remains distended. pt developed a red blanchable rash over entire back post vanco admin, discussed and viewed with resident. all supportive care continues. urine output murky brown. c/w banana bag, IV LR 100 cc/hr, thiamine, folate f/u electrolytes , replete as needed alcoholic hepatitis Hold steroids at this moment as per GI with Maddley discriminant score LFTs continues trending down . serology pending DAMIAN, likely in setting of Type I (severe) hepatorenal syndrome/cirrhosis (Cr baseline 1.2) 1.0 today c/w IVF. Ruvalcaba, strict I/O- pt making adequate amount of urine. c/w LR 84cc/h No NSAIDs Avoid contrast exposure likely UTI/R/o other causes of infn r/o any source of infection. febrile with rectal temp of 102.2 repeat cultures pending on zosyn DVT Hep subQ Visit type - Emergency Visit Emergency Visit: Yes ED Registration Date: 01/16/19 Care time: The patient presented to the Emergency Department on the above date and was hospitalized for further evaluation of their emergent condition. - New Patient This patient is new to me today: No - Critical Care Critical Care patient: Yes Total Critical Care Time (in minutes): 35 Critical Care Statement: The care of this patient involved high complexity decision making to prevent further life threatening deterioration of the patient 's condition and/or to evaluate & treat vital organ system(s) failure or risk of failure. - Discharge Referral Referred to [facility] No ATTENDING PHYSICIAN STATEMENT I saw and evaluated the patient. I reviewed the resident's note and discussed the case with the resident. I agree with the resident's findings and plan as documented. SUBJECTIVE: OBJECTIVE: ASSESSMENT AND PLAN:
[2019-01-20] MEDS ORDERED: MIDAZOLAM HCL 5 MG/1 ML Single Dose Vial IVPUSH PRN (17:59)
--- NOTE | 2019-01-20 18:01 | PN.GI ---
GI Progress Note Subjective: No acute events Remains sedated on propofol Low grade temps No significant diarrhea reported - Objective Vital Signs: Vital Signs Temperature 99.8 F H 01/20/19 16:00 Pulse Rate 101 H 01/20/19 16:00 Respiratory Rate 01/20/19 16:00 Blood Pressure 127/90 01/20/19 16:00 O2 Sat by Pulse Oximetry (%) 96 01/20/19 10:20 Constitutional: Calm Eyes: Yes: Sclera Icterus Cardiovascular: Yes: Regular Rate and Rhythm Respiratory: Yes: Diminished (at bases bilaterally) Gastrointestinal Inspection: Yes: Other (protubberant abdomen). No: Distention ...Auscultate: Yes: Normoactive Bowel Sounds ...Palpate: No: Tenderness (No grimacing upon palpation) ...Percussion: No: Fluid Wave, Tympanitic Neurological: Yes: Other (Sedated) Labs: CBC, BMP 01/20/19 05:45 01/20/19 05:45 INR, PTT INR 1.30 (0.83-1.09) H 01/20/19 05:45 Hepatic Panel Total Bilirubin 12.2 mg/dL (0.2-1) H 01/20/19 05:45 Direct Bilirubin 10.5 mg/dL (0.0-0.2) H 01/20/19 05:45 AST 160 U/L (15-37) H 01/20/19 05:45 ALT 67 U/L (13-61) H 01/20/19 05:45 Alkaline Phosphatase 214 U/L (45-117) H 01/20/19 05:45 Albumin 1.6 g/dl (3.4-5.0) L 01/20/19 05:45 Problem List - Problems (1) Alcoholic hepatitis Assessment/Plan: Improving overall No Corticosteroid therapy at this point Monitor LFTs Avoid hepatotoxic agents Lactulose 30g PO BID for now. D/C'd rifaximin. Do not think initial presentation was hepatic encephalopathy but rather DT's Code(s): K70.10 - ALCOHOLIC HEPATITIS WITHOUT ASCITES Qualifiers: Ascites presence: without ascites Qualified Code(s): K70.10 - Alcoholic hepatitis without ascites (2) Alcohol withdrawal delirium Assessment/Plan: Treatment per primary team Code(s): F10.231 - ALCOHOL DEPENDENCE WITH WITHDRAWAL DELIRIUM
[2019-01-20] MEDS: LACTULOSE 20 GM/30 ML UDC (FOR ORAL USE ONLY) PO SCH (21:17)
[2019-01-20] MEDS: CHLORHEXIDINE GLUCONATE 4% CLEANSER FOR DECOLONIZATION TP SCH (21:18)
[2019-01-21] MEDS ORDERED: PIPERACILLIN/TAZOBACTAM 3.375 GM VIAL IVPB ONE ×3 (02:11→16:38)
[2019-01-21] MEDS ORDERED: DEXTROSE 5%-WATER - 50 ML IVPB ONE ×3 (02:12→16:38)
[2019-01-21] MEDS: PIPERACILLIN/TAZOB 3.375 GM 3.375 GM in DEXTROSE 5%-WATER - 50 ML IVPB SCH ×3 (02:19→17:15)
[2019-01-21] MEDS: HEPARIN NA (PORCINE) 5,000 UNITS/ML 1ML VIAL SQ SCH ×3 (05:35→21:34)
[2019-01-21 06:13] LABS: HEMOGLOBIN 12.4 GM/dL (11.7-16.9)
[2019-01-21 06:19] LABS: INR 1.25 (0.83-1.09); PROTHROMBIN TIME (PATIENT) 14.8 SEC (9.7-13.0)
[2019-01-21 06:39] LABS: BASO % 1.7 % (0-2.0); EOS % 2.8 % (0-4.5); HEMATOCRIT 36.4 % (35.4-49); LYMPH % 33.7 % (8-40); MCH 34.6 pg (25.7-33.7); MEAN CELL VOLUME 101.8 fl (80-96); MEAN PLT VOLUME 10.7 fl (7.5-11.1); MONO % 16.4 % (3.8-10.2); NEUT % 45.4 % (42.8-82.8); PLATELET COUNT 200 K/MM3 (134-434); RBC 3.58 M/mm3 (4.00-5.60); RDW 15.7 % (11.9-15.9); WHITE BLOOD COUNT 10.1 K/mm3 (4.0-10.0)
[2019-01-21 06:43] LABS: ALBUMIN 1.5 g/dl (3.4-5.0); BILIRUBIN,TOTAL 11.7 mg/dL (0.2-1); BLOOD UREA NITROGEN 11.1 mg/dL (7-18); CALCIUM 7.5 mg/dL (8.5-10.1); CREATININE 0.7 mg/dL (0.55-1.3); TOT PROT 5.4 g/dl (6.4-8.2)
[2019-01-21 06:44] LABS: POTASSIUM 3.7 mmol/L (3.5-5.1)
[2019-01-21] MEDS: FENTANYL INJECTION 500 MCG in DEXTROSE 5%-WATER - 90 ML IVPB SCH (09:16)
[2019-01-21] MEDS ORDERED: DEXTROSE 5%-LACTATED RINGERS 1,000 ML IV SCH (10:15)
[2019-01-21] MEDS: MUPIROCIN 2% TOPICAL OINTMENT FOR DECOLONIZATION NS SCH (10:16)
[2019-01-21] MEDS: LACTULOSE 20 GM/30 ML UDC (FOR ORAL USE ONLY) PO SCH ×2 (10:17→21:34)
[2019-01-21] MEDS: FOLIC ACID 1 MG TABLET (FP) PO SCH (10:17)
--- NOTE | 2019-01-21 10:33 | PN ---
Progress Note (short form) - Note Progress Note: remains febrile intubated jaundiced sedated no pressors Vital Signs Period Temp Pulse Resp BP Sys/Phipps Pulse Ox Last 24 Hr 99.5 F-101.2 F 82-101 18-26 110-127/73-90 86-100 cor-rrr lungs decreased bs at bases abd distended, +BS ext no edema CBC, BMP 01/21/19 05:10 01/21/19 05:10 Microbiology 01/19/19 09:25 Blood - Peripheral Venous Blood Culture - Preliminary NO GROWTH OBTAINED AFTER 48 HOURS, INCUBATION TO CONTINUE FOR 3 DAYS. 01/19/19 09:30 Blood - Peripheral Venous Blood Culture - Preliminary NO GROWTH OBTAINED AFTER 48 HOURS, INCUBATION TO CONTINUE FOR 3 DAYS. 01/19/19 18:00 Sputum - Endotrachea Suction/Ventilator Gram Stain - Final 01/19/19 18:00 Sputum - Endotrachea Suction/Ventilator Sputum Culture - Preliminary Lactose Fermenting Neg Bacilli Proteus Species Staphylococcus Latex Coag Pos Strep Agalactiae Group B 01/17/19 06:38 Blood - Peripheral Venous Blood Culture - Preliminary NO GROWTH OBTAINED AFTER 96 HOURS, INCUBATION TO CONTINUE FOR 1 DAYS. 01/17/19 06:38 Blood - Peripheral Venous Blood Culture - Preliminary NO GROWTH OBTAINED AFTER 96 HOURS, INCUBATION TO CONTINUE FOR 1 DAYS. 01/19/19 13:45 Urine - Urine Ruvalcaba Urine Culture - Final NO GROWTH OBTAINED 01/17/19 02:30 Sputum - Endotrachea Suction/Ventilator Gram Stain - Final 01/17/19 02:30 Sputum - Endotrachea Suction/Ventilator Sputum Culture - Final Strep Agalactiae Group B 01/16/19 21:50 Urine - Urine Clean Catch Urine Culture - Final NO GROWTH OBTAINED Current Medications Chlorhexidine Gluconate (Hibiclens For Decolonization -) 1 applic TP HS [facility] Last Admin: 01/20/19 21:18 Dose: 1 applic Folic Acid (Folic Acid -) 1 mg PO DAILY [facility] Last Admin: 01/21/19 10:17 Dose: Not Given Heparin Sodium (Porcine) (Heparin -) 5,000 unit SQ TID [facility] Last Admin: 01/21/19 05:35 Dose: 5,000 unit Propofol (Diprivan -) 1,000,000 mcg in 100 mls @ 2.722 mls/hr IVPB TITR [facility]; Protocol Last Titration: 01/21/19 10:14 Dose: 31.3 mcg/kg/min, 17.037 mls/hr Fentanyl 500 mcg/ Dextrose 100 mls @ 10 mls/hr IVPB TITR MIESHA; Protocol Last Admin: 01/21/19 09:16 Dose: Not Given Piperacillin Sod/Tazobactam (Sod 3.375 gm/ Dextrose) 50 mls @ 100 mls/hr IVPB Q8H-IV MIESHA; Protocol Last Admin: 01/21/19 10:17 Dose: 100 mls/hr Dextrose/Lactated Ringer's (D5-Lr -) 1,000 mls @ 100 mls/hr IV ASDIR MIESHA Lactulose (Cephulac (Oral Use)) 30 gm PO BID MIESHA Last Admin: 01/21/19 10:17 Dose: Not Given Midazolam HCl (Versed -) 5 mg IVPUSH Q4H PRN PRN Reason: WITHDRAWAL(CONT SUBST) Mupirocin (Bactroban Ointment (For Decolonization) -) 1 applic NS BID MIESHA Stop: 01/21/19 21:59 Last Admin: 01/21/19 10:16 Dose: 1 applic a/p fever alcohol withdrawal etoh hepatitis acute respiratory failure gretchen- improved repeat cxray suspect fevers secondary to alcoholic hepatitis f/u cultures continue zosyn for now Problem List - Problems (1) Fever Code(s): R50.9 - FEVER, UNSPECIFIED Qualifiers: Fever type: due to other condition Qualified Code(s): R50.81 - Fever presenting with conditions classified elsewhere (2) Alcohol withdrawal Code(s): F10.239 - ALCOHOL DEPENDENCE WITH WITHDRAWAL, UNSPECIFIED (3) Alcoholic hepatitis Code(s): K70.10 - ALCOHOLIC HEPATITIS WITHOUT ASCITES Qualifiers: Ascites presence: without ascites Qualified Code(s): K70.10 - Alcoholic hepatitis without ascites (4) Acute respiratory failure Code(s): J96.00 - ACUTE RESPIRATORY FAILURE, UNSP W HYPOXIA OR HYPERCAPNIA Qualifiers: Respiratory failure complication: unspecified whether with hypoxia or hypercapnia Qualified Code(s): J96.00 - Acute respiratory failure, unspecified whether with hypoxia or hypercapnia
--- NOTE | 2019-01-21 12:36 | PN ---
Physical Exam: SUBJECTIVE: Patient seen and examined at bedside. Tried to wean pt off sedative but became tachypneic and combative yesterday and today, patient had nbnb vomiting. OBJECTIVE: Vital Signs Period Temp Pulse Resp BP Sys/Phipps Pulse Ox Last 24 Hr 99.5 F-101.2 F 82-101 18-26 110-127/73-90 86-100 GENERAL: The patient is sedated and intubated. HEAD: Normal with no signs of trauma. EYES: sclera icteric, NECK: supple. LUNGS: Breath sounds equal, clear to auscultation bilaterally, no wheezes, no crackles, no accessory muscle use. HEART: Regular rate and rhythm, S1, S2 without murmur, rub or gallop. ABDOMEN: Soft, distended, pt sedated hepatomegaly. cannot assess pain due to sedation EXTREMITIES: 2+ pulses, warm, well-perfused, b/l LE's edema. PSYCH: sedated and intubated, RASS -5 SKIN: Warm, dry, hives rashe on entire back extending to his buttock Laboratory Results - last 24 hr 01/18/19 01/20/19 01/21/19 12:00 05:45 05:10 WBC 10.1 H RBC 3.58 L Hgb 12.4 Hct 36.4 MCV 101.8 H MCH 34.6 H MCHC 34.0 RDW 15.7 Plt Count 200 MPV 10.7 Absolute Neuts (auto) 4.6 Neutrophils % 45.4 D Lymphocytes % 33.7 D Monocytes % 16.4 H Eosinophils % 2.8 Basophils % 1.7 Nucleated RBC % 0 PT with INR 15.40 H INR 1.30 H Sodium Potassium Chloride Carbon Dioxide Anion Gap BUN Creatinine Est GFR (CKD-EPI)AfAm Est GFR (CKD-EPI)NonAf Random Glucose Calcium Total Bilirubin AST ALT Alkaline Phosphatase Total Protein Albumin Urine Eosinophils None seen 01/21/19 01/21/19 05:10 05:10 WBC RBC Hgb Hct MCV MCH MCHC RDW Plt Count MPV Absolute Neuts (auto) Neutrophils % Lymphocytes % Monocytes % Eosinophils % Basophils % Nucleated RBC % PT with INR 14.80 H INR 1.25 H Sodium 134 L Potassium 3.7 Chloride 99 Carbon Dioxide 28 Anion Gap 7 L BUN 11.1 Creatinine 0.7 Est GFR (CKD-EPI)AfAm 138.75 Est GFR (CKD-EPI)NonAf 119.71 Random Glucose 86 Calcium 7.5 L Total Bilirubin 11.7 H AST 140 H ALT 60 Alkaline Phosphatase 201 H Total Protein 5.4 L Albumin 1.5 L Urine Eosinophils Active Medications Generic Name Dose Route Start Last Admin Trade Name Freq PRN Reason Stop Dose Admin Chlorhexidine Gluconate 1 applic 01/16/19 22:00 01/20/19 21:18 Hibiclens For Decolonization - TP 1 applic HS MIESHA Administration Diphenhydramine HCl 25 mg 01/21/19 12:32 Benadryl Injection - IVPUSH 01/21/19 12:33 ONCE ONE Folic Acid 1 mg 01/17/19 10:00 01/21/19 10:17 Folic Acid - PO Not Given DAILY MIESHA Heparin Sodium (Porcine) 5,000 unit 01/19/19 14:00 01/21/19 05:35 Heparin - SQ 5,000 unit TID MIESHA Administration Hydrocortisone 1 applic 01/21/19 12:32 Hytone 0.5% Cream - TP DAILY PRN ALLERGIES Propofol 1,000,000 mcg in 100 mls @ 2.722 mls/hr 01/17/19 06:30 01/21/19 10: 14 Diprivan - IVPB 31.3 mcg/kg/min TITR MIESHA 17.037 mls/hr Titration Protocol 5 MCG/KG/MIN Fentanyl 500 mcg/ Dextrose 100 mls @ 10 mls/hr 01/17/19 07:15 01/21/19 09:16 IVPB Not Given TITR MIESHA Protocol 50 MCG/HR Piperacillin Sod/Tazobactam 50 mls @ 100 mls/hr 01/20/19 02:00 01/21/19 10:17 Sod 3.375 gm/ Dextrose IVPB 100 mls/hr Q8H-IV MIESHA Administration Protocol Dextrose/Lactated Ringer's 1,000 mls @ 100 mls/hr 01/21/19 10:15 D5-Lr - IV ASDIR MIESHA Lactulose 30 gm 01/20/19 22:00 01/21/19 10:17 Cephulac (Oral Use) PO Not Given BID MIESHA Midazolam HCl 5 mg 01/20/19 17:59 Versed - IVPUSH Q4H PRN WITHDRAWAL(CONT SUBST) Mupirocin 1 applic 01/16/19 22:00 01/21/19 10:16 Bactroban Ointment (For Decolonization) - NS 01/21/19 21:59 1 applic BID MIESHA Administration ASSESSMENT/PLAN: 38M [facility] pt (etoh detox 01/15/19) PMH HTN, polysubstance abuse(1.5 pints vodka daily, on methadone) admitted to ICU for severe alcohol withdrawal with acute respiratory failure likely 2/2 DT's. Neuro - Acute alcohol withdrawal/Delirium Tremens - RASS -5 - will assess CIWA once extubated. - sedated; currently on propofol gtt, versed - trial of sedation break, patient vomited nbnb emesis, placed back on sedation with propofol Pulmonary - Acute respiratory failure 2/2 Alcoholic hepatitis induced DT's - attempted to wean off sedation pt vomited nbnb emesis. - remains intubated and sedated on versed and propofol. - c/w vent GI - Acute liver failure likely 2/2 alcoholic hepatitis/Hepatic encephalopathy - Doubt this presentation is due to H.E. likely 2/[address] Trujillo (GI) - Holding steroids at this moment. - Hepatitis B & C serology negative for acute infn, positive for HBV vaccine. - HAV POS - primary team concerned re: cholecystisis; surgery consulted - OGT inserted - c/w 30 BID lactulose via OGT - d/c rifaximin - c/w banana bag, IV LR 100 cc/hr, thiamine, folate Renal - DAMIAN, likely in setting of Type I (severe) hepatorenal syndrome/cirrhosis - (Cr baseline 1.2) - Urine studies: FeNa- 0.1 % - Ruvalcaba, strict I/O- pt making adequate amount of urine. - d/c fluids per renal - No NSAIDs - Avoid contrast exposure - HD not needed at this moment - monitor UrO, Cr Heme - Thrombocytopenia - likely 2/2 cirrhosis, resolved. - c/w heparin - continuing to monitor ID - likely UTI/R/o other causes of infn - r/o any source of infection. currently very soft temp of 100. - any fever spikes most likely due to DT's. - BCx, UCx repeat Negative X 48 hrs. - Sputum Cx repeat pending, gram stain showing gram negative bacilli. - UA- 2+ LE and Nitrites - CXR Report 01/21/19: atelectasis in rt costophrenic angle, no signs of pneumo or pleural effusion. - Abdominal XR ordered to eval for failure to have a BM since admission- showing no signs of obstruction just some air in colon. - d/c rocephin, placed on vanco and zosyn for MRSA and pseumonas coverage in hospital. ID recs appreciated. - c/w vanc and zosyn - Hives like rash on back started on 01/19 overnight, initially thought to be from vanco but still persisting despite benadryl IV one X dose. Today, ordered benadryl IV as well as hydrocortisone cream. FENGI D/c fluids per renal continue to follow lytes replete PRN NPO PPX - Heparin 5K TID Visit type - Emergency Visit Emergency Visit: Yes ED Registration Date: 01/16/19 Care time: The patient presented to the Emergency Department on the above date and was hospitalized for further evaluation of their emergent condition. - New Patient This patient is new to me today: No - Critical Care Critical Care patient: Yes Total Critical Care Time (in minutes): 35 Critical Care Statement: The care of this patient involved high complexity decision making to prevent further life threatening deterioration of the patient 's condition and/or to evaluate & treat vital organ system(s) failure or risk of failure. - Discharge Referral Referred to [facility] No
[2019-01-21] MEDS ORDERED: HYDROCORTISONE 0.5% TOPICAL CREAM 30 GM TUBE TP PRN (13:00)
--- NOTE | 2019-01-21 13:07 | PN ---
Teaching Attending Note Name of Resident: Anthony Mae ATTENDING PHYSICIAN STATEMENT I saw and evaluated the patient. I reviewed the resident's note and discussed the case with the resident. I agree with the resident's findings and plan as documented. SUBJECTIVE: Pt seen and examined in the ICU. Remains intubated, sedated. Did not tolerate CPAP/PS this AM. Remains febrile. No BM despite lactulose. OBJECTIVE: Vital Signs Period Temp Pulse Resp BP Sys/Phipps Pulse Ox Last 24 Hr 99.5 F-101.2 F 82-101 18-26 110-127/73-90 86-100 Intake & Output 01/18/19 01/19/19 01/20/19 01/21/19 23:59 23:59 23:59 23:59 Intake Total 4788 5117.7 3557.3 825.6 Output Total 800 900 600 300 Balance 3988 4217.7 2957.3 525.6 Weight 104.78 kg 95.753 kg 111.448 kg 113.171 kg Gen: intubated, sedated, jaundiced Heart: RRR Lung: scattered rhonchi Abd: distended Ext: + edema CBC, BMP 01/21/19 05:10 01/21/19 05:10 Active Medications Chlorhexidine Gluconate (Hibiclens For Decolonization -) 1 applic TP HS MIESHA Last Admin: 01/20/19 21:18 Dose: 1 applic Folic Acid (Folic Acid -) 1 mg PO DAILY MIESHA Last Admin: 01/21/19 10:17 Dose: Not Given Heparin Sodium (Porcine) (Heparin -) 5,000 unit SQ TID MIESHA Last Admin: 01/21/19 05:35 Dose: 5,000 unit Hydrocortisone (Hytone 0.5% Cream -) 1 applic TP DAILY PRN PRN Reason: ALLERGIES Propofol (Diprivan -) 1,000,000 mcg in 100 mls @ 2.722 mls/hr IVPB TITR MIESHA; Protocol Last Titration: 01/21/19 10:14 Dose: 31.3 mcg/kg/min, 17.037 mls/hr Fentanyl 500 mcg/ Dextrose 100 mls @ 10 mls/hr IVPB TITR MIESHA; Protocol Last Admin: 01/21/19 09:16 Dose: Not Given Piperacillin Sod/Tazobactam (Sod 3.375 gm/ Dextrose) 50 mls @ 100 mls/hr IVPB Q8H-IV MIESHA; Protocol Last Admin: 01/21/19 10:17 Dose: 100 mls/hr Lactulose (Cephulac (Oral Use)) 30 gm PO BID MIESHA Last Admin: 01/21/19 10:17 Dose: Not Given Midazolam HCl (Versed -) 5 mg IVPUSH Q4H PRN PRN Reason: WITHDRAWAL(CONT SUBST) Mupirocin (Bactroban Ointment (For Decolonization) -) 1 applic NS BID MIESHA Stop: 01/21/19 21:59 Last Admin: 01/21/19 10:16 Dose: 1 applic ASSESSMENT AND PLAN: Acute Respiratory Failure Acute Alcohol Withdrawal/Delerium Tremens Alcoholic Hepatitis Acute Kidney Injury improving Hepatic Encephalopathy Coagulopathy Lactic Acidosis UTI Hyponatremia Methadone Maintenance HTN - continue antibiotics - f/u cultures - can d/c IVF - monitor urine output, creatinine - continue lactulose - f/u AXR, may need CT A/P - daily sedation vacations to assess mental status - spontaneous breathing trials when mental status improved - DVT/GI prophylaxis - continue ICU monitoring critical care time spent in reviewing chart, evaluating patient and formulating plan 35 min
[2019-01-21 13:48] LABS: ANISOCYTOSIS 1+; MACROCYTOSIS 1+; OVALOCYTE 1+; PLATELET ESTIMATE NORMAL; TEAR DROP CELLS 1+
--- NOTE | 2019-01-21 15:51 | PN ---
Teaching Attending Note Name of Resident: Quyen Ramirez ATTENDING PHYSICIAN STATEMENT I saw and evaluated the patient. I reviewed the resident's note and discussed the case with the resident. I agree with the resident's findings and plan as documented. SUBJECTIVE: No events over night OBJECTIVE: sedated, intubated. round equal reactive pupils. drooling. icteric sclera CV: RRR, no MRG Lungs:CTAB anteriorly Abd: distended, hyperactive BS, tympanic Ext : upper and lower extremity edema ASSESSMENT AND PLAN: 38 y/o man with h/o alcohol abuse, h/o opioid use with methadone maintenance who presented with [facility] with Dts. 1- DTs. was on benzo gtt, now off and being sedated. -cont folic -add thiamine IV daily 2- Acute hypoxic resp failure. due to Dts 3- Fever: infectious vs non infectious . - sputum cx reviewed, follow further Id and sens - cont zosyn - send c diff when stools - KUb with no dialationin colon. - follow repeat blood cx 4- Alcoholic hepatitis : severe with initial DF of 32. - Steroids were not started, will check with GI about reason.? compliance after dc - will ask GI about Pentoxifyllin if steroids are contraindicated. - monitor renal function 5- dc IVF due to third spacing and edema 6- Abd distention : KUB with no dilation in bowl. no stooling though - hold lactulose now - if distention persist, will get CT 7- DVT Px : heparin ICU Critical Care Total Critical Care Time (in minutes): 40 Critical Care Statement: The care of this patient involved high complexity decision making to prevent further life threatening deterioration of the patient 's condition and/or to evaluate & treat vital organ system(s) failure or risk of failure.
--- NOTE | 2019-01-21 16:02 | PN ---
Physical Exam: SUBJECTIVE: Patient seen and examined. Pt was on sedation holiday thus a bit agitated. OBJECTIVE: Vital Signs Period Temp Pulse Resp BP Sys/Phipps Pulse Ox Last 24 Hr 99.5 F-101.2 F 82-98 18-25 108-125/72-88 86-100 GENERAL: The patient is sedated and intubated. Scleral icteris present. HEAD: Normal with no signs of trauma. ENT: ET tube in place LUNGS: clear to auscultation bilaterally, decreased breath sounds at the bases. HEART: Tachycardic, regular rhythm, S1, S2 without murmur, rub or gallop. ABDOMEN: Soft, nontender, distended globose abdomen EXTREMITIES: 2+ pulses, warm, well-perfused, no edema. Laboratory Results - last 24 hr 01/18/19 01/21/19 01/21/19 12:00 05:10 05:10 WBC 10.1 H RBC 3.58 L Hgb 12.4 Hct 36.4 MCV 101.8 H MCH 34.6 H MCHC 34.0 RDW 15.7 Plt Count 200 MPV 10.7 Absolute Neuts (auto) 4.6 Neutrophils % 45.4 D Neutrophils % (Manual) 58.8 D Band Neutrophils % 7.1 Lymphocytes % 33.7 D Lymphocytes % (Manual) 14.1 Monocytes % 16.4 H Monocytes % (Manual) 12 H Eosinophils % 2.8 Eosinophils % (Manual) 3.5 Basophils % 1.7 Basophils % (Manual) 1.2 Myelocytes % (Man) 0 D Promyelocytes % (Man) 0 Blast Cells % (Manual) 0 Nucleated RBC % 0 Metamyelocytes 4 H D Hypochromia 0 Platelet Estimate Normal Polychromasia 0 Poikilocytosis 0 Anisocytosis 1+ Microcytosis 1+ Macrocytosis 1+ Spherocytes 1+ Tear Drop Cells 1+ Ovalocytes 1+ PT with INR INR Sodium 134 L Potassium 3.7 Chloride 99 Carbon Dioxide 28 Anion Gap 7 L BUN 11.1 Creatinine 0.7 Est GFR (CKD-EPI)AfAm 138.75 Est GFR (CKD-EPI)NonAf 119.71 Random Glucose 86 Calcium 7.5 L Total Bilirubin 11.7 H AST 140 H ALT 60 Alkaline Phosphatase 201 H Total Protein 5.4 L Albumin 1.5 L Urine Eosinophils None seen 01/21/19 05:10 WBC RBC Hgb Hct MCV MCH MCHC RDW Plt Count MPV Absolute Neuts (auto) Neutrophils % Neutrophils % (Manual) Band Neutrophils % Lymphocytes % Lymphocytes % (Manual) Monocytes % Monocytes % (Manual) Eosinophils % Eosinophils % (Manual) Basophils % Basophils % (Manual) Myelocytes % (Man) Promyelocytes % (Man) Blast Cells % (Manual) Nucleated RBC % Metamyelocytes Hypochromia Platelet Estimate Polychromasia Poikilocytosis Anisocytosis Microcytosis Macrocytosis Spherocytes Tear Drop Cells Ovalocytes PT with INR 14.80 H INR 1.25 H Sodium Potassium Chloride Carbon Dioxide Anion Gap BUN Creatinine Est GFR (CKD-EPI)AfAm Est GFR (CKD-EPI)NonAf Random Glucose Calcium Total Bilirubin AST ALT Alkaline Phosphatase Total Protein Albumin Urine Eosinophils Active Medications Generic Name Dose Route Start Last Admin Trade Name Freq PRN Reason Stop Dose Admin Chlorhexidine Gluconate 1 applic 01/16/19 22:00 01/20/19 21:18 Hibiclens For Decolonization - TP 1 applic HS MIESHA Administration Folic Acid 1 mg 01/17/19 10:00 01/21/19 10:17 Folic Acid - PO Not Given DAILY MIESHA Heparin Sodium (Porcine) 5,000 unit 01/19/19 14:00 01/21/19 13:28 Heparin - SQ 5,000 unit TID MIESHA Administration Hydrocortisone 1 applic 01/21/19 13:00 Hytone 0.5% Cream - TP DAILY PRN ALLERGIES Propofol 1,000,000 mcg in 100 mls @ 2.722 mls/hr 01/17/19 06:30 01/21/19 10: 14 Diprivan - IVPB 31.3 mcg/kg/min TITR MIESHA 17.037 mls/hr Titration Protocol 5 MCG/KG/MIN Fentanyl 500 mcg/ Dextrose 100 mls @ 10 mls/hr 01/17/19 07:15 01/21/19 09:16 IVPB Not Given TITR MIESHA Protocol 50 MCG/HR Piperacillin Sod/Tazobactam 50 mls @ 100 mls/hr 01/20/19 02:00 01/21/19 10:17 Sod 3.375 gm/ Dextrose IVPB 100 mls/hr Q8H-IV MIESHA Administration Protocol Lactulose 30 gm 01/20/19 22:00 01/21/19 10:17 Cephulac (Oral Use) PO Not Given BID MIESHA Midazolam HCl 5 mg 01/20/19 17:59 Versed - IVPUSH Q4H PRN WITHDRAWAL(CONT SUBST) Mupirocin 1 applic 01/16/19 22:00 01/21/19 10:16 Bactroban Ointment (For Decolonization) - NS 01/21/19 21:59 1 applic BID MIESHA Administration Thiamine HCl 200 mg 01/22/19 10:00 Vitamin B1 Injection - IVPB DAILY [facility] ASSESSMENT/PLAN: 38M [facility] pt (etoh detox 01/15/19) PMH HTN, polysubstance abuse(1.5 pints vodka daily, on methadone) admitted to ICU for severe alcohol withdrawal with DT 's. Acute alcohol withdrawal/Delirium Tremens will assess CIWA once extubated. weaning trial failed yesterday and sedation holiday failed resulting in NBNB vomiting. patient back on Propofol c/w banana bag thiamine, folate f/u electrolytes , replete as needed alcoholic hepatitis Hold steroids at this moment as per GI with Maddley discriminant score 32. Per GI since LFTs trending down and unexplained fevers no steroids. LFTs continues trending down . serology negative except for positive antibody for hep A. HIV neg Monitor renal function today BUN 11.1 Cr 0.7 DAMIAN, likely in setting of Type I (severe) hepatorenal syndrome/cirrhosis Cr 0.7 today D/C IVF 2/2 BL upper and lower extremity edema. Albumin 1.5 Ruvalcaba, strict I/O- pt making adequate amount of urine. No NSAIDs Avoid contrast exposure Recurrent fever r/o any source of infection. febrile with rectal temp of 101.2 repeat blood cultures neg x48hrs. Sputum culture Lact fermenting Neg Bacilli, proteus species, staph latex coag pos, Strep agalactiae group B on zosyn and vanc Abd distention KUB with no acute findings. hold lactulose now if distention persist, will get CT DVT Hep subQ Visit type - Emergency Visit Emergency Visit: Yes ED Registration Date: 01/16/19 Care time: The patient presented to the Emergency Department on the above date and was hospitalized for further evaluation of their emergent condition. - New Patient This patient is new to me today: No - Critical Care Critical Care patient: Yes Total Critical Care Time (in minutes): 35 Critical Care Statement: The care of this patient involved high complexity decision making to prevent further life threatening deterioration of the patient 's condition and/or to evaluate & treat vital organ system(s) failure or risk of failure. ATTENDING PHYSICIAN STATEMENT I saw and evaluated the patient. I reviewed the resident's note and discussed the case with the resident. I agree with the resident's findings and plan as documented. SUBJECTIVE: OBJECTIVE: ASSESSMENT AND PLAN:
--- NOTE | 2019-01-21 17:22 | PN.GI ---
GI Progress Note Subjective: Pt seen/examined, remains intubated/sedated. No bms per nursing staff. Low grade temps noted. Did not tolerate CPAP trials. - Objective Vital Signs: Vital Signs Temperature 99.8 F H 01/21/19 16:00 Pulse Rate 85 01/21/19 16:00 Respiratory Rate 20 01/21/19 16:09 Blood Pressure 119/83 01/21/19 16:00 O2 Sat by Pulse Oximetry (%) 97 01/21/19 08:27 Constitutional: Other (intubated/sedated) Cardiovascular: Yes: WNL, Regular Rate and Rhythm Respiratory: Yes: Mechanically Ventilated ...Palpate: Yes: Other (Abd softly distended, tympanitic, no tenderness elicited ) Labs: CBC, BMP 01/21/19 05:10 01/21/19 05:10 INR, PTT INR 1.25 (0.83-1.09) H 01/21/19 05:10 Problem List - Problems (1) Alcoholic hepatitis Assessment/Plan: 38yo male h/o etoh abuse presenting with increased agitation s/p intubation. Likely delirium tremens. LFTs slowly improving. Abdominal distension noted though nondilated/nonobstructive pattern on xray. No bms yet. No biochemical features to suggest impending liver failure. Hepatitis panel negative. -Recommend follow up cultures -Hold on steroids at this time -Monitor LFTs and coags daily -CT abd/pelvis to further evaluate -Further management per MICU Code(s): K70.10 - ALCOHOLIC HEPATITIS WITHOUT ASCITES Qualifiers: Ascites presence: without ascites Qualified Code(s): K70.10 - Alcoholic hepatitis without ascites
[2019-01-21] MEDS: CHLORHEXIDINE GLUCONATE 4% CLEANSER FOR DECOLONIZATION TP SCH (21:35)
[2019-01-22] MEDS ORDERED: PIPERACILLIN/TAZOBACTAM 3.375 GM VIAL IVPB ONE ×2 (01:08→09:25)
[2019-01-22] MEDS ORDERED: DEXTROSE 5%-WATER - 50 ML IVPB ONE ×2 (01:09→09:25)
[2019-01-22] MEDS: PIPERACILLIN/TAZOB 3.375 GM 3.375 GM in DEXTROSE 5%-WATER - 50 ML IVPB SCH ×2 (01:45→09:41)
[2019-01-22] MEDS: HEPARIN NA (PORCINE) 5,000 UNITS/ML 1ML VIAL SQ SCH ×3 (06:46→22:17)
[2019-01-22 07:14] LABS: BASO % 1.9 % (0-2.0); HEMATOCRIT 36.6 % (35.4-49); HEMOGLOBIN 12.4 GM/dL (11.7-16.9); LYMPH % 35.8 % (8-40); MCH 34.6 pg (25.7-33.7); MEAN CELL VOLUME 101.9 fl (80-96); MEAN PLT VOLUME 10.3 fl (7.5-11.1); NEUT % 50.3 % (42.8-82.8); PLATELET COUNT 243 K/MM3 (134-434); RBC 3.59 M/mm3 (4.00-5.60); RDW 15.9 % (11.9-15.9)
[2019-01-22 07:33] LABS: ALBUMIN 1.5 g/dl (3.4-5.0); BILIRUBIN,TOTAL 10.4 mg/dL (0.2-1); BLOOD UREA NITROGEN 8.5 mg/dL (7-18); CALCIUM 7.9 mg/dL (8.5-10.1); CREATININE 0.7 mg/dL (0.55-1.3); PHOSPHOROUS 2.2 mg/dL (2.5-4.9); TOT PROT 5.6 g/dl (6.4-8.2)
[2019-01-22 07:34] LABS: MAGNESIUM 1.9 mg/dL (1.8-2.4); POTASSIUM 3.5 mmol/L (3.5-5.1)
[2019-01-22] MEDS: LACTULOSE 20 GM/30 ML UDC (FOR ORAL USE ONLY) PO SCH ×2 (09:41→22:12)
[2019-01-22] MEDS: FOLIC ACID 1 MG TABLET (FP) PO SCH (09:41)
[2019-01-22] MEDS: THIAMINE HCL 200 MG/2 ML VIAL IVPB SCH (09:41)
[2019-01-22] MEDS ORDERED: POTASSIUM PHOSPHATE 30 MM in DEXTROSE 5%-WATER - 250 ML IVPB ONE (10:15)
[2019-01-22] MEDS: PROPOFOL 1,000,000 MCG/100 ML VIAL IVPB SCH ×4 (10:39→22:29)
[2019-01-22 12:14] LABS: INR 1.18 (0.83-1.09)
--- NOTE | 2019-01-22 13:26 | PN ---
Teaching Attending Note Name of Resident: Saud Sargent ATTENDING PHYSICIAN STATEMENT I saw and evaluated the patient. I reviewed the resident's note and discussed the case with the resident. I agree with the resident's findings and plan as documented. SUBJECTIVE: Pt seen and examined in the ICU. Remains intubated, sedated. Bowel movement yesterday. Not tolerating CPAP/PS trials. OBJECTIVE: Vital Signs Period Temp Pulse Resp BP Sys/Phipps Pulse Ox Last 24 Hr 99.1 F-100.2 F 82-88 16-25 106-121/72-87 95-100 Intake & Output 01/19/19 01/20/19 01/21/19 01/22/19 23:59 23:59 23:59 23:59 Intake Total 5117.7 3557.3 2100.0 857.1 Output Total 900 600 750 600 Balance 4217.7 2957.3 1350.0 257.1 Weight 95.753 kg 111.448 kg 113.171 kg 112.99 kg Gen: intubated, sedated, jaundiced Heart: RRR Lung: decreased breath sounds at the bases Abd: distended Ext: + edema CBC, BMP 01/22/19 06:20 01/22/19 06:20 Active Medications Chlorhexidine Gluconate (Hibiclens For Decolonization -) 1 applic TP HS MIESHA Last Admin: 01/21/19 21:35 Dose: 1 applic Folic Acid (Folic Acid -) 1 mg PO DAILY MIESHA Last Admin: 01/22/19 09:41 Dose: Not Given Heparin Sodium (Porcine) (Heparin -) 5,000 unit SQ TID MIESHA Last Admin: 01/22/19 06:46 Dose: 5,000 unit Hydrocortisone (Hytone 0.5% Cream -) 1 applic TP DAILY PRN PRN Reason: ALLERGIES Propofol (Diprivan -) 1,000,000 mcg in 100 mls @ 2.722 mls/hr IVPB TITR MIESHA; Protocol Last Admin: 01/22/19 10:39 Dose: 31.33 mcg/kg/min, 17.053 mls/hr Fentanyl 500 mcg/ Dextrose 100 mls @ 10 mls/hr IVPB TITR MIESHA; Protocol Last Admin: 01/21/19 09:16 Dose: Not Given Piperacillin Sod/Tazobactam (Sod 3.375 gm/ Dextrose) 50 mls @ 100 mls/hr IVPB Q8H-IV MIESHA; Protocol Last Admin: 01/22/19 09:41 Dose: 100 mls/hr Potassium Phosphate 30 mm/ (Dextrose) 260 mls @ 62.5 mls/hr IVPB ONCE ONE Stop: 01/22/19 14:24 Last Admin: 01/22/19 10:39 Dose: 62.5 mls/hr Lactulose (Cephulac (Oral Use)) 30 gm PO BID MIESHA Last Admin: 01/22/19 09:41 Dose: Not Given Midazolam HCl (Versed -) 5 mg IVPUSH Q4H PRN PRN Reason: WITHDRAWAL(CONT SUBST) Thiamine HCl (Vitamin B1 Injection -) 200 mg IVPB DAILY [facility] Last Admin: 01/22/19 09:41 Dose: 200 mg ASSESSMENT AND PLAN: Acute Respiratory Failure Acute Alcohol Withdrawal/Delerium Tremens Alcoholic Hepatitis Acute Kidney Injury improving Hepatic Encephalopathy Coagulopathy Lactic Acidosis UTI Hyponatremia Methadone Maintenance HTN - continue antibiotics - f/u cultures - replete lytes - monitor urine output, creatinine - continue lactulose - daily sedation vacations to assess mental status - spontaneous breathing trials when mental status improved - DVT/GI prophylaxis - continue ICU monitoring critical care time spent in reviewing chart, evaluating patient and formulating plan 35 min
[2019-01-22 13:29] LABS: ANISOCYTOSIS 1+; MACROCYTOSIS 0; PLATELET ESTIMATE NORMAL
--- NOTE | 2019-01-22 14:20 | PN ---
Teaching Attending Note Name of Resident: Quyen Ramirez ATTENDING PHYSICIAN STATEMENT I saw and evaluated the patient. I reviewed the resident's note and discussed the case with the resident. I agree with the resident's findings and plan as documented. SUBJECTIVE: No events over night OBJECTIVE: Sedated, intubated. round equal reactive pupils. drooling. icteric sclera . jaundiced skin CV: RRR, no MRG Lungs: CTAB anteriorly Abd: less distended, NL BS, tympanic, soft Ext : upper and lower extremity edema ASSESSMENT AND PLAN: 38 y/o man with h/o alcohol abuse, h/o opioid use with methadone maintenance who presented with [facility] with Dts. 1- DTs. off benzo gtt, now off and being sedated. - Cont folic - cont thiamine 2- Acute hypoxic resp failure. due to Dts. weaning trials 3- Fever: infectious vs non infectious . - sputum cx reviewed, one of the organisms is ESBL producing Klebsiella. will d/ w ID - follow c diff when he stools - KUb with no dialation in colon. - follow repeat blood cx 4- Alcoholic hepatitis : severe with initial DF of 32, now 19.5. - case was d/w Dr. Trujillo by resident. steroids were not recommended in setting of fevers and possible infection . PEntoxyfilline was also discussed, but not recommended as well - Monitor LFTS - cont lactulose 5- PEripheral edema, and possible pulm edema. might need to start diuresis soon 6- Abd distention: improved . KUB as above . Monitor 7- DVT Px : heparin ICU Critical Care Total Critical Care Time (in minutes): 35 Critical Care Statement: The care of this patient involved high complexity decision making to prevent further life threatening deterioration of the patient 's condition and/or to evaluate & treat vital organ system(s) failure or risk of failure.
--- NOTE | 2019-01-22 14:38 | PN ---
Progress Note (short form) - Note Progress Note: remains febrile intubated jaundiced sedated no pressors Vital Signs Period Temp Pulse Resp BP Sys/Phipps Pulse Ox Last 24 Hr 99.1 F-100.5 F 82-88 16-25 106-121/75-87 95-100 cor-rrr lungs decreased bs at bases abd protuberant, soft ext no edema +jaundice CBC, BMP 01/22/19 06:20 01/22/19 06:20 Microbiology 01/19/19 18:00 Sputum - Endotrachea Suction/Ventilator Gram Stain - Final 01/19/19 18:00 Sputum - Endotrachea Suction/Ventilator Sputum Culture - Preliminary Klebsiella Pneumoniae - Esbl Proteus Mirabilis Staphylococcus Aureus Strep Agalactiae Group B 01/19/19 09:25 Blood - Peripheral Venous Blood Culture - Preliminary NO GROWTH OBTAINED AFTER 72 HOURS, INCUBATION TO CONTINUE FOR 2 DAYS. 01/19/19 09:30 Blood - Peripheral Venous Blood Culture - Preliminary NO GROWTH OBTAINED AFTER 72 HOURS, INCUBATION TO CONTINUE FOR 2 DAYS. 01/17/19 06:38 Blood - Peripheral Venous Blood Culture - Final NO GROWTH AFTER 5 DAYS INCUBATION 01/17/19 06:38 Blood - Peripheral Venous Blood Culture - Final NO GROWTH AFTER 5 DAYS INCUBATION 01/19/19 13:45 Urine - Urine Ruvalcaba Urine Culture - Final NO GROWTH OBTAINED 01/17/19 02:30 Sputum - Endotrachea Suction/Ventilator Gram Stain - Final 01/17/19 02:30 Sputum - Endotrachea Suction/Ventilator Sputum Culture - Final Strep Agalactiae Group B 01/16/19 21:50 Urine - Urine Clean Catch Urine Culture - Final NO GROWTH OBTAINED Current Medications Chlorhexidine Gluconate (Hibiclens For Decolonization -) 1 applic TP HS [facility] Last Admin: 01/21/19 21:35 Dose: 1 applic Folic Acid (Folic Acid -) 1 mg PO DAILY [facility] Last Admin: 01/22/19 09:41 Dose: Not Given Heparin Sodium (Porcine) (Heparin -) 5,000 unit SQ TID [facility] Last Admin: 01/22/19 06:46 Dose: 5,000 unit Hydrocortisone (Hytone 0.5% Cream -) 1 applic TP DAILY PRN PRN Reason: ALLERGIES Propofol (Diprivan -) 1,000,000 mcg in 100 mls @ 2.722 mls/hr IVPB TITR MIESHA; Protocol Last Admin: 01/22/19 10:39 Dose: 31.33 mcg/kg/min, 17.053 mls/hr Fentanyl 500 mcg/ Dextrose 100 mls @ 10 mls/hr IVPB TITR MIESHA; Protocol Last Admin: 01/21/19 09:16 Dose: Not Given Piperacillin Sod/Tazobactam (Sod 3.375 gm/ Dextrose) 50 mls @ 100 mls/hr IVPB Q8H-IV MIESHA; Protocol Last Admin: 01/22/19 09:41 Dose: 100 mls/hr Lactulose (Cephulac (Oral Use)) 30 gm PO BID MIESHA Last Admin: 01/22/19 09:41 Dose: Not Given Midazolam HCl (Versed -) 5 mg IVPUSH Q4H PRN PRN Reason: WITHDRAWAL(CONT SUBST) Thiamine HCl (Vitamin B1 Injection -) 200 mg IVPB DAILY MIESHA Last Admin: 01/22/19 09:41 Dose: 200 mg cxray unchanged a/p fever-persistent, sputum is polymicrobial- will switch to ertapenem, consider repeat abdominal imaging alcohol withdrawal etoh hepatitis- bilirubin trending down acute respiratory failure gretchen- improved Problem List - Problems (1) Fever Code(s): R50.9 - FEVER, UNSPECIFIED Qualifiers: Fever type: due to other condition Qualified Code(s): R50.81 - Fever presenting with conditions classified elsewhere (2) Alcohol withdrawal Code(s): F10.239 - ALCOHOL DEPENDENCE WITH WITHDRAWAL, UNSPECIFIED (3) Alcoholic hepatitis Code(s): K70.10 - ALCOHOLIC HEPATITIS WITHOUT ASCITES Qualifiers: Ascites presence: without ascites Qualified Code(s): K70.10 - Alcoholic hepatitis without ascites (4) Acute respiratory failure Code(s): J96.00 - ACUTE RESPIRATORY FAILURE, UNSP W HYPOXIA OR HYPERCAPNIA Qualifiers: Respiratory failure complication: unspecified whether with hypoxia or hypercapnia Qualified Code(s): J96.00 - Acute respiratory failure, unspecified whether with hypoxia or hypercapnia
[2019-01-22] MEDS: FENTANYL INJECTION 500 MCG in DEXTROSE 5%-WATER - 90 ML IVPB SCH (15:21)
[2019-01-22] MEDS ORDERED: PT OWN MED DRAWER 7, Y5N ONE (15:38)
[2019-01-22] MEDS: ERTAPENEM SODIUM 1 GM in SODIUM CHLORIDE 50 ML IVPB SCH (17:00)
--- NOTE | 2019-01-22 17:37 | PN ---
Physical Exam: SUBJECTIVE: OBJECTIVE: Vital Signs Period Temp Pulse Resp BP Sys/Phipps Pulse Ox Last 24 Hr 99.1 F-100.5 F 82-88 16-26 106-121/75-87 95-100 Laboratory Results - last 24 hr 01/22/19 01/22/19 01/22/19 06:20 06:20 11:25 WBC 11.0 H RBC 3.59 L Hgb 12.4 Hct 36.6 MCV 101.9 H MCH 34.6 H MCHC 34.0 RDW 15.9 Plt Count 243 D MPV 10.3 Absolute Neuts (auto) 5.5 Neutrophils % 50.3 Neutrophils % (Manual) 59.8 Band Neutrophils % 15.2 Lymphocytes % 35.8 Lymphocytes % (Manual) 3.2 L D Monocytes % 10.0 Monocytes % (Manual) 3 L Eosinophils % 2.0 Eosinophils % (Manual) 9.8 H D Basophils % 1.9 Basophils % (Manual) 0.0 Myelocytes % (Man) 1 D Promyelocytes % (Man) 0 Blast Cells % (Manual) 0 Nucleated RBC % 0 Metamyelocytes 7 H D Hypochromia 0 Platelet Estimate Normal Platelet Comment Present Polychromasia 0 Poikilocytosis 1+ Anisocytosis 1+ Microcytosis 1+ Macrocytosis 0 Spherocytes 1+ PT with INR 14.00 H INR 1.18 H Sodium 135 L Potassium 3.5 Chloride 99 Carbon Dioxide 28 Anion Gap 8 BUN 8.5 Creatinine 0.7 Est GFR (CKD-EPI)AfAm 138.75 Est GFR (CKD-EPI)NonAf 119.71 Random Glucose 99 Calcium 7.9 L Phosphorus 2.2 L Magnesium 1.9 Total Bilirubin 10.4 H AST 141 H ALT 70 H Alkaline Phosphatase 196 H Total Protein 5.6 L Albumin 1.5 L Active Medications Generic Name Dose Route Start Last Admin Trade Name Freq PRN Reason Stop Dose Admin Chlorhexidine Gluconate 1 applic 01/16/19 22:00 01/21/19 21:35 Hibiclens For Decolonization - TP 1 applic HS MIESHA Administration Folic Acid 1 mg 01/17/19 10:00 01/22/19 09:41 Folic Acid - PO Not Given DAILY MIESHA Heparin Sodium (Porcine) 5,000 unit 01/19/19 14:00 01/22/19 14:49 Heparin - SQ 5,000 unit TID MIESHA Administration Hydrocortisone 1 applic 01/21/19 13:00 Hytone 0.5% Cream - TP DAILY PRN ALLERGIES Propofol 1,000,000 mcg in 100 mls @ 2.722 mls/hr 01/17/19 06:30 01/22/19 10: 39 Diprivan - IVPB 31.33 mcg/kg/min TITR MIESHA 17.053 mls/hr Administration Protocol 5 MCG/KG/MIN Fentanyl 500 mcg/ Dextrose 100 mls @ 10 mls/hr 01/17/19 07:15 01/22/19 15:21 IVPB Not Given TITR MIESHA Protocol 50 MCG/HR Ertapenem 1 gm/ Sodium 50 mls @ 100 mls/hr 01/22/19 15:00 Chloride IVPB Q24H MIESHA Lactulose 30 gm 01/20/19 22:00 01/22/19 09:41 Cephulac (Oral Use) PO Not Given BID MIESHA Midazolam HCl 5 mg 01/20/19 17:59 Versed - IVPUSH Q4H PRN WITHDRAWAL(CONT SUBST) Thiamine HCl 200 mg 01/22/19 10:00 01/22/19 09:41 Vitamin B1 Injection - IVPB 200 mg DAILY MIESHA Administration ASSESSMENT/PLAN: S: pt seen/examined no acute events overnight unable to obtain ros 2/2 sedation Exam: GENERAL: sedated and intubated. HEENT: NC/AT LUNGS: Mechanically ventilated, CTAB, no wheezes, rales, rhonchi HEART: S1/S2, RRR, no mrg ABDOMEN: Soft, distended, +BS EXTREMITIES: 2+ pulses, warm, well-perfused, b/l LE's edema. PSYCH: sedated SKIN: Warm, dry, hives rash on entire back extending to his buttock A/P: 38M [facility] pt (etoh detox 01/15/19) PMH HTN, polysubstance abuse(1.5 pints vodka daily, on methadone) admitted to ICU for severe alcohol withdrawal with acute respiratory failure likely 2/2 DT's. Neuro - Acute alcohol withdrawal/Delirium Tremens - will assess CIWA once extubated. - sedated on propofol gtt - trial of sedation break, patient vomited nbnb emesis, placed back on sedation with propofol; this is the second day this has occurred - family was with patient when he was off sedation before vomiting, states he understood and could follow commands. Pulmonary - Acute respiratory failure 2/2 Alcoholic hepatitis induced DT's - attempted to wean off sedation subsequent pt vomited nbnb emesis. - remains intubated and sedated on propofol. - c/w vent GI - Acute liver failure likely 2/2 alcoholic hepatitis/Hepatic encephalopathy - Doubt this presentation is due to H.E. likely 2/[address] Trujillo (GI) - Holding steroids at this moment. - HBV, HCV serology negative for acute infn, positive for HBV vaccine. - HAV POS - primary team concerned re: cholecystisis; surgery consulted - OGT in place - c/w 30 BID lactulose via OGT - d/c rifaximin - c/w banana bag, IV LR 100 cc/hr, thiamine, folate - GI note appreciated Renal - DAMIAN, likely in setting of Type I (severe) hepatorenal syndrome/cirrhosis - (Cr baseline 1.2) - Urine studies: FeNa- 0.1 % - Ruvalcaba, strict I/O, UrO, Cr - pt making adequate amount of urine. - d/c fluids per renal - No NSAIDs - Avoid contrast exposure - HD not needed at this moment Heme - Thrombocytopenia - likely 2/2 cirrhosis, resolved. - c/w heparin - monitor ID - likely UTI/R/o other causes of infn - r/o any source of infection. currently very soft temp of 100. - any fever spikes most likely due to DT's. - BCx, UCx repeat NGTD - Sputum Cx positive, see report - UA 2+ LE and Nitrites - CXR Report 01/22/19: Since 01/21/2019 there is no change of an adverse nature. - Abdominal XR ordered to eval for failure to have a BM since admission- showing no signs of obstruction just some air in colon. - d/c rocephin, placed on vanco and zosyn for MRSA and pseumonas coverage in hospital. - rash on back unchanged today from prior. s/p benadryl and hydrocortisone cream - ID recs appreciated: - fever-persistent, sputum is polymicrobial - switch to Ertapenem FENGI D/c fluids per renal continue to follow lytes replete PRN NPO PPX - Heparin 5K TID Visit type - Emergency Visit Emergency Visit: Yes ED Registration Date: 01/16/19 Care time: The patient presented to the Emergency Department on the above date and was hospitalized for further evaluation of their emergent condition. - New Patient This patient is new to me today: No - Critical Care Critical Care patient: Yes Total Critical Care Time (in minutes): 35 Critical Care Statement: The care of this patient involved high complexity decision making to prevent further life threatening deterioration of the patient 's condition and/or to evaluate & treat vital organ system(s) failure or risk of failure.
--- NOTE | 2019-01-22 17:56 | PN.GI ---
GI Progress Note Subjective: No acute events NGT with bilious fluid - Objective Vital Signs: Vital Signs Temperature 100.4 F H 01/22/19 16:00 Pulse Rate 88 01/22/19 16:00 Respiratory Rate 26 H 01/22/19 16:35 Blood Pressure 112/80 01/22/19 16:00 O2 Sat by Pulse Oximetry (%) 95 01/22/19 10:00 Constitutional: Calm Eyes: Yes: Sclera Icterus Cardiovascular: Yes: Regular Rate and Rhythm Respiratory: Yes: Diminished (at bases bilaterally) Gastrointestinal Inspection: No: Distention ...Auscultate: Yes: Normoactive Bowel Sounds ...Palpate: Yes: Soft. No: Tenderness (No grimacing upon palpation) Neurological: Yes: Other (Sedated) Labs: CBC, BMP 01/22/19 06:20 01/22/19 06:20 INR, PTT INR 1.18 (0.83-1.09) H 01/22/19 11:25 Hepatic Panel Total Bilirubin 10.4 mg/dL (0.2-1) H 01/22/19 06:20 Direct Bilirubin 10.5 mg/dL (0.0-0.2) H 01/20/19 05:45 AST 141 U/L (15-37) H 01/22/19 06:20 ALT 70 U/L (13-61) H 01/22/19 06:20 Alkaline Phosphatase 196 U/L (45-117) H 01/22/19 06:20 Albumin 1.5 g/dl (3.4-5.0) L 01/22/19 06:20 Problem List - Problems (1) Alcoholic hepatitis Assessment/Plan: Slow improvement of LFTs. Bilirubin trending down Supportive measures Code(s): K70.10 - ALCOHOLIC HEPATITIS WITHOUT ASCITES Qualifiers: Ascites presence: without ascites Qualified Code(s): K70.10 - Alcoholic hepatitis without ascites (2) Alcohol withdrawal delirium Assessment/Plan: management / vent weaning per critical care team B12, folate, thiamine Correction of lytes per primary team Code(s): F10.231 - ALCOHOL DEPENDENCE WITH WITHDRAWAL DELIRIUM
--- NOTE | 2019-01-22 19:09 | PN ---
Physical Exam: SUBJECTIVE: Patient seen and examined. pt failed sedation holiday. vomited on trial OBJECTIVE: Vital Signs Period Temp Pulse Resp BP Sys/Phipps Pulse Ox Last 24 Hr 99.1 F-100.5 F 82-88 16-26 106-121/75-87 95-100 GENERAL: The patient is sedated and intubated. Scleral icteris present. HEAD: Normal with no signs of trauma. EYES: PERRL, extraocular movements intact, conjunctiva clear. No ptosis. ENT: ET tube in place LUNGS: clear to auscultation bilaterally, decreased breath sounds at the bases. HEART: Tachycardic, regular rhythm, S1, S2 without murmur, rub or gallop. ABDOMEN: Soft, nontender, distended globose abdomen EXTREMITIES: 2+ pulses, warm, well-perfused, 3+ edema. Laboratory Results - last 24 hr 01/22/19 01/22/19 01/22/19 06:20 06:20 11:25 WBC 11.0 H RBC 3.59 L Hgb 12.4 Hct 36.6 MCV 101.9 H MCH 34.6 H MCHC 34.0 RDW 15.9 Plt Count 243 D MPV 10.3 Absolute Neuts (auto) 5.5 Neutrophils % 50.3 Neutrophils % (Manual) 59.8 Band Neutrophils % 15.2 Lymphocytes % 35.8 Lymphocytes % (Manual) 3.2 L D Monocytes % 10.0 Monocytes % (Manual) 3 L Eosinophils % 2.0 Eosinophils % (Manual) 9.8 H D Basophils % 1.9 Basophils % (Manual) 0.0 Myelocytes % (Man) 1 D Promyelocytes % (Man) 0 Blast Cells % (Manual) 0 Nucleated RBC % 0 Metamyelocytes 7 H D Hypochromia 0 Platelet Estimate Normal Platelet Comment Present Polychromasia 0 Poikilocytosis 1+ Anisocytosis 1+ Microcytosis 1+ Macrocytosis 0 Spherocytes 1+ PT with INR 14.00 H INR 1.18 H Sodium 135 L Potassium 3.5 Chloride 99 Carbon Dioxide 28 Anion Gap 8 BUN 8.5 Creatinine 0.7 Est GFR (CKD-EPI)AfAm 138.75 Est GFR (CKD-EPI)NonAf 119.71 Random Glucose 99 Calcium 7.9 L Phosphorus 2.2 L Magnesium 1.9 Total Bilirubin 10.4 H AST 141 H ALT 70 H Alkaline Phosphatase 196 H Total Protein 5.6 L Albumin 1.5 L Active Medications Generic Name Dose Route Start Last Admin Trade Name Freq PRN Reason Stop Dose Admin Chlorhexidine Gluconate 1 applic 01/16/19 22:00 01/21/19 21:35 Hibiclens For Decolonization - TP 1 applic HS MIESHA Administration Folic Acid 1 mg 01/17/19 10:00 01/22/19 09:41 Folic Acid - PO Not Given DAILY MIESHA Heparin Sodium (Porcine) 5,000 unit 01/19/19 14:00 01/22/19 14:49 Heparin - SQ 5,000 unit TID MIESHA Administration Hydrocortisone 1 applic 01/21/19 13:00 Hytone 0.5% Cream - TP DAILY PRN ALLERGIES Propofol 1,000,000 mcg in 100 mls @ 2.722 mls/hr 01/17/19 06:30 01/22/19 16: 00 Diprivan - IVPB 31.33 mcg/kg/min TITR MIESHA 17.053 mls/hr Administration Protocol 5 MCG/KG/MIN Fentanyl 500 mcg/ Dextrose 100 mls @ 10 mls/hr 01/17/19 07:15 01/22/19 15:21 IVPB Not Given TITR MIESHA Protocol 50 MCG/HR Ertapenem 1 gm/ Sodium 50 mls @ 100 mls/hr 01/22/19 15:00 01/22/19 17:00 Chloride IVPB 100 mls/hr Q24H MIESHA Administration Lactulose 30 gm 01/20/19 22:00 01/22/19 09:41 Cephulac (Oral Use) PO Not Given BID [facility] Midazolam HCl 5 mg 01/20/19 17:59 Versed - IVPUSH Q4H PRN WITHDRAWAL(CONT SUBST) Thiamine HCl 200 mg 01/22/19 10:00 01/22/19 09:41 Vitamin B1 Injection - IVPB 200 mg DAILY MIESHA Administration ASSESSMENT/PLAN: 38M [facility] pt (etoh detox 01/15/19) PMH HTN, polysubstance abuse(1.5 pints vodka daily, on methadone) admitted to ICU for severe alcohol withdrawal with DT 's. Delirium Tremens will assess CIWA once extubated. weaning trial failed yesterday and sedation holiday failed resulting in NBNB vomiting. patient back on Propofol c/w banana bag thiamine, folate, B12 f/u electrolytes , replete phos alcoholic hepatitis Hold steroids at this moment as per GI with Maddley discriminant score today 23. LFTs continues trending down . serology negative except for positive antibody for hep A. HIV neg Monitor renal function today BUN 8.5 Cr 0.7 Pt 14 INR 1.18 DAMIAN, likely in setting of Type I (severe) hepatorenal syndrome/cirrhosis Cr 0.7 today D/C IVF 2/2 BL upper and lower extremity edema. Albumin 1.5 Ruvalcaba, strict I/O- pt making adequate amount of urine. No NSAIDs Avoid contrast exposure Recurrent fever r/o any source of infection. febrile with rectal temp of 100 Sputum culture Lact fermenting Neg Bacilli, proteus species, staph latex coag pos, Strep agalactiae group B fever-persistent, sputum is polymicrobial- will switch to ertapenem As per GI consider repeat abdominal imaging Abd distention KUB with no acute findings. Improved today DVT Hep subQ Visit type - Emergency Visit Emergency Visit: Yes ED Registration Date: 01/16/19 Care time: The patient presented to the Emergency Department on the above date and was hospitalized for further evaluation of their emergent condition. - New Patient This patient is new to me today: No - Critical Care Critical Care patient: Yes Total Critical Care Time (in minutes): 35 Critical Care Statement: The care of this patient involved high complexity decision making to prevent further life threatening deterioration of the patient 's condition and/or to evaluate & treat vital organ system(s) failure or risk of failure. ATTENDING PHYSICIAN STATEMENT I saw and evaluated the patient. I reviewed the resident's note and discussed the case with the resident. I agree with the resident's findings and plan as documented. SUBJECTIVE: OBJECTIVE: ASSESSMENT AND PLAN:
[2019-01-22] MEDS ORDERED: IBUPROFEN 800 MG/8 ML IJ IVPB ONE (21:45)
[2019-01-22] MEDS: CHLORHEXIDINE GLUCONATE 4% CLEANSER FOR DECOLONIZATION TP SCH (22:17)
[2019-01-23] MEDS: HEPARIN NA (PORCINE) 5,000 UNITS/ML 1ML VIAL SQ SCH ×3 (05:45→21:18)
[2019-01-23 06:25] LABS: BASO % 2.2 % (0-2.0); EOS % 0.8 % (0-4.5); HEMATOCRIT 35.2 % (35.4-49); HEMOGLOBIN 11.9 GM/dL (11.7-16.9); LYMPH % 26.5 % (8-40); MCH 34.4 pg (25.7-33.7); MCHC 33.8 g/dl (32.0-35.9); MEAN CELL VOLUME 101.6 fl (80-96); MEAN PLT VOLUME 10.2 fl (7.5-11.1); MONO % 9.1 % (3.8-10.2); NEUT % 61.4 % (42.8-82.8); PLATELET COUNT 282 K/MM3 (134-434); RBC 3.46 M/mm3 (4.00-5.60); RDW 15.5 % (11.9-15.9); WHITE BLOOD COUNT 12.1 K/mm3 (4.0-10.0)
[2019-01-23 07:41] LABS: ALBUMIN 1.5 g/dl (3.4-5.0); BILIRUBIN,TOTAL 9.4 mg/dL (0.2-1); CREATININE 0.6 mg/dL (0.55-1.3); POTASSIUM 3.4 mmol/L (3.5-5.1); TOT PROT 5.6 g/dl (6.4-8.2)
[2019-01-23] MEDS: PROPOFOL 1,000,000 MCG/100 ML VIAL IVPB SCH ×2 (09:00→14:04)
[2019-01-23] MEDS: KCL 10 MEQ IVPB 10 MEQ/100 ML INFUS.BAG IVPB SCH ×2 (09:55→11:53)
[2019-01-23] MEDS: FENTANYL INJECTION 500 MCG in DEXTROSE 5%-WATER - 90 ML IVPB SCH (09:57)
[2019-01-23] MEDS: LACTULOSE 20 GM/30 ML UDC (FOR ORAL USE ONLY) PO SCH ×2 (09:57→21:18)
[2019-01-23] MEDS: FOLIC ACID 1 MG TABLET (FP) PO SCH (09:57)
[2019-01-23] MEDS: THIAMINE HCL 200 MG/2 ML VIAL IVPB SCH (09:57)
[2019-01-23 11:06] LABS: ANISOCYTOSIS 1+; MACROCYTOSIS 1+; OVALOCYTE 1+; PLATELET ESTIMATE NORMAL; TEAR DROP CELLS 2+
--- NOTE | 2019-01-23 11:40 | PN.GI ---
GI Progress Note Subjective: No acute eevents retches, coughs and vomits when propofol weaned down No diarrhea AXR 01/21 w/o obstructive/ileus pattern - Objective Vital Signs: Vital Signs Temperature 97.4 F L 01/23/19 10:00 Pulse Rate 74 01/23/19 10:00 Respiratory Rate 26 H 01/23/19 10:00 Blood Pressure 113/84 01/23/19 10:00 O2 Sat by Pulse Oximetry (%) 99 01/23/19 10:00 Constitutional: Calm Eyes: Yes: Sclera Icterus Cardiovascular: Yes: Regular Rate and Rhythm Respiratory: Yes: Diminished (at bases bilaterally) Gastrointestinal Inspection: No: Scars ...Auscultate: Yes: Normoactive Bowel Sounds ...Palpate: Yes: Soft. No: Tenderness (No grimacing upon palpation) ...Percussion: No: Tympanitic Edema: No Neurological: Yes: Other (Sedated on vent) Labs: CBC, BMP 01/23/19 05:35 01/23/19 05:35 INR, PTT INR 1.18 (0.83-1.09) H 01/22/19 11:25 Laboratory Tests 01/19/19 01/20/19 01/21/19 05:20 05:45 05:10 Total Bilirubin 14.0 H 12.2 H 11.7 H 01/22/19 01/23/19 06:20 05:35 Total Bilirubin 10.4 H 9.4 H Problem List - Problems (1) Alcoholic hepatitis Assessment/Plan: Normalizing liver chemistries Continue to trend Avoid hepatotoxic agents Trial of enteral feeds. If high residuals, consider short course of reglan 5mg IVPB Q8 hours Aspiration precautions Code(s): K70.10 - ALCOHOLIC HEPATITIS WITHOUT ASCITES Qualifiers: Ascites presence: without ascites Qualified Code(s): K70.10 - Alcoholic hepatitis without ascites (2) Alcohol withdrawal delirium Assessment/Plan: Treatment per primary team Code(s): F10.231 - ALCOHOL DEPENDENCE WITH WITHDRAWAL DELIRIUM
--- NOTE | 2019-01-23 11:47 | PN ---
Teaching Attending Note Name of Resident: Anthony Mae ATTENDING PHYSICIAN STATEMENT I saw and evaluated the patient. I reviewed the resident's note and discussed the case with the resident. I agree with the resident's findings and plan as documented. SUBJECTIVE: Patient seen and examined in the ICU. Remains intubated, sedated. Concern over abdominal distention. Has been having small BM. OBJECTIVE: Intake & Output 01/20/19 01/21/19 01/22/19 01/23/19 23:59 23:59 23:59 23:59 Intake Total 3557.3 2100.0 1507.1 1504 Output Total 834 441 4015 Balance 2957.3 1350.0 7.1 1504 Weight 245 lb 11.2 oz 249 lb 8 oz 249 lb 1.6 oz 202 lb 14.4 oz Last Vital Signs Temp Pulse Resp BP Pulse Ox 97.4 F L 74 26 H 113/84 99 01/23/19 10:00 01/23/19 10:00 01/23/19 10:00 01/23/19 10:00 01/23/19 10:00 Active Medications Chlorhexidine Gluconate (Hibiclens For Decolonization -) 1 applic TP HS MIESHA Last Admin: 01/22/19 22:17 Dose: 1 applic Folic Acid (Folic Acid -) 1 mg PO DAILY MIESHA Last Admin: 01/23/19 09:57 Dose: Not Given Heparin Sodium (Porcine) (Heparin -) 5,000 unit SQ TID MIESHA Last Admin: 01/23/19 05:45 Dose: 5,000 unit Hydrocortisone (Hytone 0.5% Cream -) 1 applic TP DAILY PRN PRN Reason: ALLERGIES Propofol (Diprivan -) 1,000,000 mcg in 100 mls @ 2.722 mls/hr IVPB TITR MIESHA; Protocol Last Admin: 01/23/19 09:00 Dose: 25 mcg/kg/min, 13.608 mls/hr Fentanyl 500 mcg/ Dextrose 100 mls @ 10 mls/hr IVPB TITR MIESHA; Protocol Last Admin: 01/23/19 09:57 Dose: Not Given Ertapenem 1 gm/ Sodium (Chloride) 50 mls @ 100 mls/hr IVPB Q24H MIESHA Last Admin: 01/22/19 17:00 Dose: 100 mls/hr Lactulose (Cephulac (Oral Use)) 30 gm PO BID [facility] Last Admin: 01/23/19 09:57 Dose: Not Given Midazolam HCl (Versed -) 5 mg IVPUSH Q4H PRN PRN Reason: WITHDRAWAL(CONT SUBST) Thiamine HCl (Vitamin B1 Injection -) 200 mg IVPB DAILY [facility] Last Admin: 01/23/19 09:57 Dose: 200 mg Gen: intubated, sedated, jaundiced Heart: RRR Lung: decreased breath sounds at the bases Abd: distended Ext: + edema Laboratory Results - last 24 hr 01/22/19 01/22/19 01/23/19 06:20 11:25 05:35 WBC 12.1 H RBC 3.46 L Hgb 11.9 Hct 35.2 L MCV 101.6 H MCH 34.4 H MCHC 33.8 RDW 15.5 Plt Count 282 MPV 10.2 Absolute Neuts (auto) 7.4 Neutrophils % 61.4 D Neutrophils % (Manual) 59.8 56.8 Band Neutrophils % 15.2 12.6 Lymphocytes % 26.5 D Lymphocytes % (Manual) 3.2 L D 10.5 D Monocytes % 9.1 Monocytes % (Manual) 3 L 6 D Eosinophils % 0.8 Eosinophils % (Manual) 9.8 H D 2.1 Basophils % 2.2 H Basophils % (Manual) 0.0 1.1 D Myelocytes % (Man) 1 D 7 H D Promyelocytes % (Man) 0 0 Blast Cells % (Manual) 0 0 Nucleated RBC % 0 Metamyelocytes 7 H D 3 H D Hypochromia 0 0 Platelet Estimate Normal Normal Platelet Comment Present Polychromasia 0 1+ Poikilocytosis 1+ 1+ Anisocytosis 1+ 1+ Microcytosis 1+ 0 Macrocytosis 0 1+ Spherocytes 1+ Tear Drop Cells 2+ Ovalocytes 1+ PT with INR 14.00 H INR 1.18 H Sodium Potassium Chloride Carbon Dioxide Anion Gap BUN Creatinine Est GFR (CKD-EPI)AfAm Est GFR (CKD-EPI)NonAf Random Glucose Calcium Total Bilirubin AST ALT Alkaline Phosphatase Total Protein Albumin 01/23/19 05:35 WBC RBC Hgb Hct MCV MCH MCHC RDW Plt Count MPV Absolute Neuts (auto) Neutrophils % Neutrophils % (Manual) Band Neutrophils % Lymphocytes % Lymphocytes % (Manual) Monocytes % Monocytes % (Manual) Eosinophils % Eosinophils % (Manual) Basophils % Basophils % (Manual) Myelocytes % (Man) Promyelocytes % (Man) Blast Cells % (Manual) Nucleated RBC % Metamyelocytes Hypochromia Platelet Estimate Platelet Comment Polychromasia Poikilocytosis Anisocytosis Microcytosis Macrocytosis Spherocytes Tear Drop Cells Ovalocytes PT with INR INR Sodium 138 Potassium 3.4 L Chloride 102 Carbon Dioxide 29 Anion Gap 7 L BUN 7.0 Creatinine 0.6 Est GFR (CKD-EPI)AfAm 147.82 Est GFR (CKD-EPI)NonAf 127.55 Random Glucose 106 Calcium 8.0 L Total Bilirubin 9.4 H AST 160 H ALT 73 H Alkaline Phosphatase 175 H Total Protein 5.6 L Albumin 1.5 L ASSESSMENT AND PLAN: Acute Respiratory Failure Acute Alcohol Withdrawal/Delerium Tremens Alcoholic Hepatitis Acute Kidney Injury improving Hepatic Encephalopathy Coagulopathy Lactic Acidosis UTI Hyponatremia Methadone Maintenance HTN - NGT decompression - May need further CT imaging if not clinically improved - Continue antibiotics - f/u final cultures - replete lytes PRN - monitor urine output, creatinine - continue lactulose - daily sedation vacations to assess mental status - spontaneous breathing trials when mental status improved - DVT/GI prophylaxis - Requires continued ICU monitoring Dr Fry Critical care time spent in reviewing chart, evaluating patient and formulating plan 35 min
[2019-01-23] MEDS ORDERED: FUROSEMIDE 40 MG/4 ML INJECTABLE VIAL IVPUSH ONE (12:49)
--- NOTE | 2019-01-23 13:21 | PN ---
Physical Exam: SUBJECTIVE: Patient seen and examined at bedside. No acute events overnight. Intubated, concern for distended abdomen without any BM's of late. OBJECTIVE: Vital Signs Period Temp Pulse Resp BP Sys/Phipps Pulse Ox Last 24 Hr 97.4 F-100.9 F 70-96 17-26 107-135/77-93 98-99 GENERAL: The patient is intubated, sedated, jaundice, scleral icterus NECK: supple. LUNGS: Breath sounds decreased at bases. HEART: Regular rate and rhythm, S1, S2 without murmur, rub or gallop. ABDOMEN: Soft, distended, with hepatomegaly, hypoactive bowel sounds. SKIN: Warm, dry, jaundice, caput medusae seen on abdomen. Laboratory Results - last 24 hr 01/22/19 01/23/19 01/23/19 06:20 05:35 05:35 WBC 12.1 H RBC 3.46 L Hgb 11.9 Hct 35.2 L MCV 101.6 H MCH 34.4 H MCHC 33.8 RDW 15.5 Plt Count 282 MPV 10.2 Absolute Neuts (auto) 7.4 Neutrophils % 61.4 D Neutrophils % (Manual) 59.8 56.8 Band Neutrophils % 15.2 12.6 Lymphocytes % 26.5 D Lymphocytes % (Manual) 3.2 L D 10.5 D Monocytes % 9.1 Monocytes % (Manual) 3 L 6 D Eosinophils % 0.8 Eosinophils % (Manual) 9.8 H D 2.1 Basophils % 2.2 H Basophils % (Manual) 0.0 1.1 D Myelocytes % (Man) 1 D 7 H D Promyelocytes % (Man) 0 0 Blast Cells % (Manual) 0 0 Nucleated RBC % 0 Metamyelocytes 7 H D 3 H D Hypochromia 0 0 Platelet Estimate Normal Normal Platelet Comment Present Polychromasia 0 1+ Poikilocytosis 1+ 1+ Anisocytosis 1+ 1+ Microcytosis 1+ 0 Macrocytosis 0 1+ Spherocytes 1+ Tear Drop Cells 2+ Ovalocytes 1+ Sodium 138 Potassium 3.4 L Chloride 102 Carbon Dioxide 29 Anion Gap 7 L BUN 7.0 Creatinine 0.6 Est GFR (CKD-EPI)AfAm 147.82 Est GFR (CKD-EPI)NonAf 127.55 Random Glucose 106 Calcium 8.0 L Total Bilirubin 9.4 H AST 160 H ALT 73 H Alkaline Phosphatase 175 H Total Protein 5.6 L Albumin 1.5 L Active Medications Generic Name Dose Route Start Last Admin Trade Name Lesterq PRN Reason Stop Dose Admin Chlorhexidine Gluconate 1 applic 01/16/19 22:00 01/22/19 22:17 Hibiclens For Decolonization - TP 1 applic HS MIESHA Administration Folic Acid 1 mg 01/17/19 10:00 01/23/19 09:57 Folic Acid - PO Not Given DAILY MIESHA Heparin Sodium (Porcine) 5,000 unit 01/19/19 14:00 01/23/19 05:45 Heparin - SQ 5,000 unit TID MIESHA Administration Hydrocortisone 1 applic 01/21/19 13:00 Hytone 0.5% Cream - TP DAILY PRN ALLERGIES Propofol 1,000,000 mcg in 100 mls @ 2.722 mls/hr 01/17/19 06:30 01/23/19 09: 00 Diprivan - IVPB 25 mcg/kg/min TITR MIESHA 13.608 mls/hr Administration Protocol 5 MCG/KG/MIN Fentanyl 500 mcg/ Dextrose 100 mls @ 10 mls/hr 01/17/19 07:15 01/23/19 09:57 IVPB Not Given TITR MIESHA Protocol 50 MCG/HR Ertapenem 1 gm/ Sodium 50 mls @ 100 mls/hr 01/22/19 15:00 01/22/19 17:00 Chloride IVPB 100 mls/hr Q24H MIESHA Administration Lactulose 30 gm 01/20/19 22:00 01/23/19 09:57 Cephulac (Oral Use) PO Not Given BID MIESHA Midazolam HCl 5 mg 01/20/19 17:59 Versed - IVPUSH Q4H PRN WITHDRAWAL(CONT SUBST) Thiamine HCl 200 mg 01/22/19 10:00 01/23/19 09:57 Vitamin B1 Injection - IVPB 200 mg DAILY MIESHA Administration ASSESSMENT/PLAN: 38M [facility] pt (etoh detox 01/15/19) PMH HTN, polysubstance abuse(1.5 pints vodka daily, on methadone) admitted to ICU for severe alcohol withdrawal with acute respiratory failure likely 2/2 DT's. Neuro - Acute alcohol withdrawal/Delirium Tremens - will assess CIWA once extubated. - sedated RASS -5 - trial of sedation break, patient vomited nbnb emesis, placed back on sedation with propofol; - family was with patient when he was off sedation before vomiting, states he understood and could follow commands. Pulmonary - Acute respiratory failure 2/2 Alcoholic hepatitis induced DT's - attempted to wean off sedation subsequent pt vomited nbnb emesis. - remains intubated and sedated on prop and fentanyl - c/w vent GI - Acute liver failure likely 2/2 alcoholic hepatitis/Hepatic encephalopathy - Doubt this presentation is due to H.E. likely 2/[address] Trujillo (GI) - Holding steroids at this moment. - primary team concerned r/o: cholecystisis; surgery consulted Dr Miguelito aponte appreciated. - OGT in place, set to suction. - c/w 30 BID lactulose via OGT - c/w banana bag, IV LR 100 cc/hr, thiamine, folate - GI note appreciated can start reglan briefly 5mg IVPB Q8h if high residuals after trial of enteral feeds. - Aspiration precautions, HOB elevation, d/c feeds 30 min prior to moving patient if needed. Renal - DAMIAN, likely in setting of Type I (severe) hepatorenal syndrome/cirrhosis - (Cr baseline 1.2), BUN/Cr- 7/0.6 - Urine studies: FeNa- 0.1 % - Ruvalcaba, strict I/O - pt making adequate amount of urine. Heme - Thrombocytopenia - likely 2/2 cirrhosis, resolved. - c/w heparin - monitor - MCV >100, ordered B12, Folate ID - likely UTI/R/o other causes of infn - r/o any source of infection. currently very soft temp of 100. - any fever spikes most likely due to DT's. - BCx, UCx repeat NGTD - Sputum Cx positive, see report - UA 2+ LE and Nitrites - CXR Report 01/22/19: Since 01/21/2019 there is no change of an adverse nature. - Abdominal XR ordered to eval for failure to have a BM since admission- showing no signs of obstruction just some air in colon. - d/c rocephin, placed on vanco and zosyn for MRSA and pseumonas coverage in hospital. - rash on back unchanged today from prior. s/p benadryl and hydrocortisone cream - fever-persistent, sputum is polymicrobial - continue Ertapenem. ROBI continue to follow lytes replete PRN NPO, enteral feeds started at 42cc/hr and added multivitamin, will watch out for hyponatremia post feeds initiation and watch PO4. . PPX - Heparin 5K TID Visit type - Emergency Visit Emergency Visit: Yes ED Registration Date: 01/16/19 Care time: The patient presented to the Emergency Department on the above date and was hospitalized for further evaluation of their emergent condition. - New Patient This patient is new to me today: No - Critical Care Critical Care patient: Yes Total Critical Care Time (in minutes): 35 Critical Care Statement: The care of this patient involved high complexity decision making to prevent further life threatening deterioration of the patient 's condition and/or to evaluate & treat vital organ system(s) failure or risk of failure. - Discharge Referral Referred to [facility] Med P.C.: No
[2019-01-23] MEDS ORDERED: PT OWN MED DRAWER 7, Y5N ONE ×2 (14:00→14:46)
[2019-01-23] MEDS ORDERED: MULTIVIT INJECTION ADULT 10 ML in AMINO ACIDS 4.25%/D5W 1,000 ML IV SCH (14:00)
[2019-01-23] MEDS: ERTAPENEM SODIUM 1 GM in SODIUM CHLORIDE 50 ML IVPB SCH (14:04)
--- NOTE | 2019-01-23 16:03 | PN ---
Progress Note (short form) - Note Progress Note: Renal follow up for DAMIAN Seen and examined in the ICU intubated and sedated making urine via cook BP stable Vital Signs Temperature 97.4 F L 01/23/19 10:00 Pulse Rate 70 01/23/19 14:00 Respiratory Rate 16 01/23/19 15:48 Blood Pressure 126/91 01/23/19 14:00 O2 Sat by Pulse Oximetry (%) 99 01/23/19 10:00 Intake & Output 01/20/19 01/21/19 01/22/19 01/23/19 23:59 23:59 23:59 23:59 Intake Total 3557.3 2100.0 1507.1 1504 Output Total 767 654 3745 Balance 2957.3 1350.0 7.1 1504 Weight 111.448 kg 113.171 kg 112.99 kg 92.034 kg Intubated via ET Tube sedated RRR CTA distended Abd No LE edema CBC, BMP 01/23/19 05:35 01/23/19 05:35 Current Medications Chlorhexidine Gluconate (Hibiclens For Decolonization -) 1 applic TP HS MIESHA Last Admin: 01/22/19 22:17 Dose: 1 applic Folic Acid (Folic Acid -) 1 mg PO DAILY MIESHA Last Admin: 01/23/19 09:57 Dose: Not Given Heparin Sodium (Porcine) (Heparin -) 5,000 unit SQ TID MIESHA Last Admin: 01/23/19 13:33 Dose: 5,000 unit Hydrocortisone (Hytone 0.5% Cream -) 1 applic TP DAILY PRN PRN Reason: ALLERGIES Propofol (Diprivan -) 1,000,000 mcg in 100 mls @ 2.722 mls/hr IVPB TITR MIESHA; Protocol Last Admin: 01/23/19 14:04 Dose: 25 mcg/kg/min, 13.608 mls/hr Fentanyl 500 mcg/ Dextrose 100 mls @ 10 mls/hr IVPB TITR [facility]; Protocol Last Admin: 01/23/19 09:57 Dose: Not Given Ertapenem 1 gm/ Sodium (Chloride) 50 mls @ 100 mls/hr IVPB Q24H MIESHA Last Admin: 01/23/19 14:04 Dose: 100 mls/hr Multivitamins/Minerals 10 ml/ (Amino Acids) 1,010 mls @ 42 mls/hr IV Q24H MIESHA Last Admin: 01/23/19 15:23 Dose: 42 mls/hr Lactulose (Cephulac (Oral Use)) 30 gm PO BID [facility] Last Admin: 01/23/19 09:57 Dose: Not Given Midazolam HCl (Versed -) 5 mg IVPUSH Q4H PRN PRN Reason: WITHDRAWAL(CONT SUBST) Thiamine HCl (Vitamin B1 Injection -) 200 mg IVPB DAILY [facility] Last Admin: 01/23/19 09:57 Dose: 200 mg 38 year old gentleman with history of chronic alcohol abuse, hypertension who presented from Detox with AMS and found to have alcoholic hepatitis and developed DAMIAN. Cr was 2 on presentation and itinally improved now is 3. 1. Acute renal failure now resolved 2. Alcoholic hepatitis 3. Respiratory failure 4. Hx of hypertension Renal function improved to baseline trend electrolytes including phos daily supplement phos as pt is not getting fed at this time continue ICU management and vent support Ricardo Purvis DO
[2019-01-23 16:43] LABS: BLOOD UREA NITROGEN 7.2 mg/dL (7-18); CALCIUM 8.4 mg/dL (8.5-10.1); CREATININE 0.7 mg/dL (0.55-1.3)
[2019-01-23 16:44] LABS: POTASSIUM 3.6 mmol/L (3.5-5.1)
--- NOTE | 2019-01-23 16:52 | PN ---
Physical Exam: SUBJECTIVE: Patient seen and examined. Brown liquid from NG tube overnight. OBJECTIVE: Vital Signs Period Temp Pulse Resp BP Sys/Phipps Pulse Ox Last 24 Hr 97.4 F-100.9 F 70-96 16-26 107-135/77-93 98-99 GENERAL: The patient is sedated and intubated. Scleral icteris present. HEAD: Normal with no signs of trauma. EYES: PERRL, No ptosis. ENT: ET tube in place LUNGS: clear to auscultation bilaterally, decreased breath sounds at the bases. HEART: regular rhythm, S1, S2 without murmur, rub or gallop. ABDOMEN: Soft, nontender, distended globose abdomen EXTREMITIES: 2+ pulses, warm, well-perfused, 3+ edema. Laboratory Results - last 24 hr 01/23/19 01/23/19 01/23/19 05:35 05:35 15:40 WBC 12.1 H RBC 3.46 L Hgb 11.9 Hct 35.2 L MCV 101.6 H MCH 34.4 H MCHC 33.8 RDW 15.5 Plt Count 282 MPV 10.2 Absolute Neuts (auto) 7.4 Neutrophils % 61.4 D Neutrophils % (Manual) 56.8 Band Neutrophils % 12.6 Lymphocytes % 26.5 D Lymphocytes % (Manual) 10.5 D Monocytes % 9.1 Monocytes % (Manual) 6 D Eosinophils % 0.8 Eosinophils % (Manual) 2.1 Basophils % 2.2 H Basophils % (Manual) 1.1 D Myelocytes % (Man) 7 H D Promyelocytes % (Man) 0 Blast Cells % (Manual) 0 Nucleated RBC % 0 Metamyelocytes 3 H D Hypochromia 0 Platelet Estimate Normal Polychromasia 1+ Poikilocytosis 1+ Anisocytosis 1+ Microcytosis 0 Macrocytosis 1+ Tear Drop Cells 2+ Ovalocytes 1+ Sodium 138 137 Potassium 3.4 L 3.6 Chloride 102 100 Carbon Dioxide 29 29 Anion Gap 7 L 8 BUN 7.0 7.2 Creatinine 0.6 0.7 Est GFR (CKD-EPI)AfAm 147.82 138.75 Est GFR (CKD-EPI)NonAf 127.55 119.71 Random Glucose 106 100 Calcium 8.0 L 8.4 L Total Bilirubin 9.4 H AST 160 H ALT 73 H Alkaline Phosphatase 175 H Total Protein 5.6 L Albumin 1.5 L Active Medications Generic Name Dose Route Start Last Admin Trade Name Freq PRN Reason Stop Dose Admin Chlorhexidine Gluconate 1 applic 01/16/19 22:00 01/22/19 22:17 Hibiclens For Decolonization - TP 1 applic HS MIESHA Administration Folic Acid 1 mg 01/17/19 10:00 01/23/19 09:57 Folic Acid - PO Not Given DAILY MIESHA Heparin Sodium (Porcine) 5,000 unit 01/19/19 14:00 01/23/19 13:33 Heparin - SQ 5,000 unit TID MIESHA Administration Hydrocortisone 1 applic 01/21/19 13:00 Hytone 0.5% Cream - TP DAILY PRN ALLERGIES Propofol 1,000,000 mcg in 100 mls @ 2.722 mls/hr 01/17/19 06:30 01/23/19 14: 04 Diprivan - IVPB 25 mcg/kg/min TITR MIESHA 13.608 mls/hr Administration Protocol 5 MCG/KG/MIN Fentanyl 500 mcg/ Dextrose 100 mls @ 10 mls/hr 01/17/19 07:15 01/23/19 09:57 IVPB Not Given TITR MIESHA Protocol 50 MCG/HR Ertapenem 1 gm/ Sodium 50 mls @ 100 mls/hr 01/22/19 15:00 01/23/19 14:04 Chloride IVPB 100 mls/hr Q24H MIESHA Administration Multivitamins/Minerals 10 ml/ 1,010 mls @ 42 mls/hr 01/23/19 14:00 01/23/19 15:23 Amino Acids IV 42 mls/hr Q24H MIESHA Administration Lactulose 30 gm 01/20/19 22:00 01/23/19 09:57 Cephulac (Oral Use) PO Not Given BID MIESHA Midazolam HCl 5 mg 01/20/19 17:59 Versed - IVPUSH Q4H PRN WITHDRAWAL(CONT SUBST) Thiamine HCl 200 mg 01/22/19 10:00 01/23/19 09:57 Vitamin B1 Injection - IVPB 200 mg DAILY MIESHA Administration ASSESSMENT/PLAN: 38M [facility] pt (etoh detox 01/15/19) PMH HTN, polysubstance abuse(1.5 pints vodka daily, on methadone) admitted to ICU for severe alcohol withdrawal with DT 's. Delirium Tremens patient back on Propofol currently at 25 mcg/kg/min c/w banana bag thiamine, folate, B12 f/u electrolytes , repleted phos Trial of enteral feeds. If high residuals, consider short course of reglan 5mg IVPB Q8 hours Aspiration precautions alcoholic hepatitis Hold steroids at this moment as per GI LFTs continues trending down . NG suction if no change, CT scan DAMIAN, likely in setting of Type I (severe) hepatorenal syndrome/cirrhosis Cr 0.7 today Ruvalcaba, strict I/O- pt making adequate amount of urine. No NSAIDs Avoid contrast exposure Recurrent fever afebrile with rectal temp of 98.1 on ertapenem f/u final cultures DVT Hep subQ Visit type - Emergency Visit Emergency Visit: Yes ED Registration Date: 01/16/19 Care time: The patient presented to the Emergency Department on the above date and was hospitalized for further evaluation of their emergent condition. - New Patient This patient is new to me today: No - Critical Care Critical Care patient: Yes Total Critical Care Time (in minutes): 35 Critical Care Statement: The care of this patient involved high complexity decision making to prevent further life threatening deterioration of the patient 's condition and/or to evaluate & treat vital organ system(s) failure or risk of failure. - Discharge Referral Referred to [facility] No ATTENDING PHYSICIAN STATEMENT I saw and evaluated the patient. I reviewed the resident's note and discussed the case with the resident. I agree with the resident's findings and plan as documented. SUBJECTIVE: OBJECTIVE: ASSESSMENT AND PLAN:
[2019-01-23 17:36] LABS: PHOSPHOROUS 2.3 mg/dL (2.5-4.9)
--- NOTE | 2019-01-23 18:03 | PN ---
Teaching Attending Note Name of Resident: Quyen Ramirez ATTENDING PHYSICIAN STATEMENT I saw and evaluated the patient. I reviewed the resident's note and discussed the case with the resident. I agree with the resident's findings and plan as documented. SUBJECTIVE: no events over night , not able to obtain hx OBJECTIVE: Sedated, intubated. round equal reactive pupils. icteric sclera . jaundiced skin CV: RRR, no MRG Lungs: CTAB anteriorly Abd: less distended, NL BS, tympanic, soft Ext : upper and lower extremity edema ASSESSMENT AND PLAN: 38 y/o man with h/o alcohol abuse, h/o opioid use with methadone maintenance who presented with [facility] with Dts. 1- DTs. off benzo gtt, now off and being sedated. - Cont folic - cont thiamine 2- Acute hypoxic resp failure. due to Dts. weaning trials 3- Fever: infectious vs non infectious . - cont ertapenem - follow c diff when he stools 4- Abdominal distention: likely ileus. d/w ICU team, will decompress stomach through suction if no improvement , will get the CT . hold off now 5- Alcoholic hepatitis: - Monitor LFTS - cont lactulose 6- Peripheral edema, and possible pulm edema. give lasix x 1 dose 7- DVT Px : heparin ICU Critical Care Total Critical Care Time (in minutes): 36 Critical Care Statement: The care of this patient involved high complexity decision making to prevent further life threatening deterioration of the patient 's condition and/or to evaluate & treat vital organ system(s) failure or risk of failure.
[2019-01-23] MEDS: CHLORHEXIDINE GLUCONATE 4% CLEANSER FOR DECOLONIZATION TP SCH (21:19)
[2019-01-24] MEDS: PROPOFOL 1,000,000 MCG/100 ML VIAL IVPB SCH ×3 (05:35→17:42)
[2019-01-24] MEDS: HEPARIN NA (PORCINE) 5,000 UNITS/ML 1ML VIAL SQ SCH ×3 (05:35→21:09)
[2019-01-24 06:15] LABS: EOS % 2.1 % (0-4.5); HEMOGLOBIN 12.8 GM/dL (11.7-16.9); LYMPH % 14.1 % (8-40); MCH 34.2 pg (25.7-33.7); MCHC 33.6 g/dl (32.0-35.9); MEAN CELL VOLUME 101.7 fl (80-96); MEAN PLT VOLUME 10.3 fl (7.5-11.1); MONO % 10.7 % (3.8-10.2); NEUT % 70.1 % (42.8-82.8); PLATELET COUNT 302 K/MM3 (134-434); RBC 3.74 M/mm3 (4.00-5.60); RDW 16.2 % (11.9-15.9); WHITE BLOOD COUNT 13.3 K/mm3 (4.0-10.0)
[2019-01-24 06:23] LABS: INR 1.14 (0.83-1.09); PROTHROMBIN TIME (PATIENT) 13.5 SEC (9.7-13.0)
[2019-01-24 07:14] LABS: ALBUMIN 1.6 g/dl (3.4-5.0); BILIRUBIN,TOTAL 8.9 mg/dL (0.2-1); BLOOD UREA NITROGEN 10.8 mg/dL (7-18); CREATININE 0.7 mg/dL (0.55-1.3); PHOSPHOROUS 2.6 mg/dL (2.5-4.9)
[2019-01-24 07:26] LABS: POTASSIUM 3.6 mmol/L (3.5-5.1)
--- NOTE | 2019-01-24 09:02 | PN ---
Progress Note (short form) - Note Progress Note: remains febrile intubated jaundiced sedated no pressors Vital Signs Period Temp Pulse Resp BP Sys/Phipps Pulse Ox Last 24 Hr 97.4 F-101.1 F 70-99 14-26 106-130/62-93 95-99 cor-rrr lungs decreased bs at bases abd soft, protuberant ext no edema rash- rash both flanks and groin cook CBC, BMP 01/24/19 05:15 01/24/19 05:15 Microbiology 01/19/19 09:25 Blood - Peripheral Venous Blood Culture - Preliminary NO GROWTH OBTAINED AFTER 96 HOURS, INCUBATION TO CONTINUE FOR 1 DAYS. 01/19/19 09:30 Blood - Peripheral Venous Blood Culture - Preliminary NO GROWTH OBTAINED AFTER 96 HOURS, INCUBATION TO CONTINUE FOR 1 DAYS. 01/19/19 18:00 Sputum - Endotrachea Suction/Ventilator Gram Stain - Final 01/19/19 18:00 Sputum - Endotrachea Suction/Ventilator Sputum Culture - Final Klebsiella Pneumoniae - Esbl Proteus Mirabilis Staphylococcus Aureus Strep Agalactiae Group B 01/17/19 06:38 Blood - Peripheral Venous Blood Culture - Final NO GROWTH AFTER 5 DAYS INCUBATION 01/17/19 06:38 Blood - Peripheral Venous Blood Culture - Final NO GROWTH AFTER 5 DAYS INCUBATION 01/19/19 13:45 Urine - Urine Cook Urine Culture - Final NO GROWTH OBTAINED 01/17/19 02:30 Sputum - Endotrachea Suction/Ventilator Gram Stain - Final 01/17/19 02:30 Sputum - Endotrachea Suction/Ventilator Sputum Culture - Final Strep Agalactiae Group B 01/16/19 21:50 Urine - Urine Clean Catch Urine Culture - Final NO GROWTH OBTAINED Chlorhexidine Gluconate (Hibiclens For Decolonization -) 1 applic TP HS [facility] Last Admin: 01/21/19 21:35 Dose: 1 applic Folic Acid (Folic Acid -) 1 mg PO DAILY [facility] Last Admin: 01/22/19 09:41 Dose: Not Given Heparin Sodium (Porcine) (Heparin -) 5,000 unit SQ TID [facility] Last Admin: 01/22/19 06:46 Dose: 5,000 unit Hydrocortisone (Hytone 0.5% Cream -) 1 applic TP DAILY PRN PRN Reason: ALLERGIES Propofol (Diprivan -) 1,000,000 mcg in 100 mls @ 2.722 mls/hr IVPB TITR MIESHA; Protocol Last Admin: 01/22/19 10:39 Dose: 31.33 mcg/kg/min, 17.053 mls/hr Fentanyl 500 mcg/ Dextrose 100 mls @ 10 mls/hr IVPB TITR MIESHA; Protocol Last Admin: 01/21/19 09:16 Dose: Not Given Piperacillin Sod/Tazobactam (Sod 3.375 gm/ Dextrose) 50 mls @ 100 mls/hr IVPB Q8H-IV MIESHA; Protocol Last Admin: 01/22/19 09:41 Dose: 100 mls/hr Lactulose (Cephulac (Oral Use)) 30 gm PO BID MIESHA Last Admin: 01/22/19 09:41 Dose: Not Given Midazolam HCl (Versed -) 5 mg IVPUSH Q4H PRN PRN Reason: WITHDRAWAL(CONT SUBST) Thiamine HCl (Vitamin B1 Injection -) 200 mg IVPB DAILY MIESHA Last Admin: 01/22/19 09:41 Dose: 200 mg cxray unchanged LFTs improving a/p persistent fever ?drug rash ?secondary to etoh hepatitis will d/c ertapenem alcohol withdrawal etoh hepatitis- bilirubin trending down acute respiratory failure gretchen- resolved d/w hospitalist Problem List - Problems (1) Fever Code(s): R50.9 - FEVER, UNSPECIFIED Qualifiers: Fever type: due to other condition Qualified Code(s): R50.81 - Fever presenting with conditions classified elsewhere (2) Alcohol withdrawal Code(s): F10.239 - ALCOHOL DEPENDENCE WITH WITHDRAWAL, UNSPECIFIED (3) Alcoholic hepatitis Code(s): K70.10 - ALCOHOLIC HEPATITIS WITHOUT ASCITES Qualifiers: Ascites presence: without ascites Qualified Code(s): K70.10 - Alcoholic hepatitis without ascites (4) Acute respiratory failure Code(s): J96.00 - ACUTE RESPIRATORY FAILURE, UNSP W HYPOXIA OR HYPERCAPNIA Qualifiers: Respiratory failure complication: unspecified whether with hypoxia or hypercapnia Qualified Code(s): J96.00 - Acute respiratory failure, unspecified whether with hypoxia or hypercapnia
[2019-01-24] MEDS ORDERED: PT OWN MED DRAWER 7, Y5N ONE (09:43)
[2019-01-24] MEDS: LACTULOSE 20 GM/30 ML UDC (FOR ORAL USE ONLY) PO SCH (09:49)
[2019-01-24] MEDS: FOLIC ACID 1 MG TABLET (FP) PO SCH (09:49)
[2019-01-24] MEDS: THIAMINE HCL 200 MG/2 ML VIAL IVPB SCH (09:50)
[2019-01-24] MEDS ORDERED: LACTULOSE 20 GM/30 ML UDC (FOR ORAL USE ONLY) GT SCH (10:37)
[2019-01-24] MEDS ORDERED: PANTOPRAZOLE SODIUM 40 MG VIAL IVPUSH SCH (10:45)
[2019-01-24] MEDS ORDERED: NYSTATIN 100,000 UNIT/GM TOPICAL CREAM 15 GM TUBE TP SCH (10:45)
--- NOTE | 2019-01-24 10:48 | PN ---
Physical Exam: SUBJECTIVE: Patient seen and examined.Brown liquid from NG tube overnight. OBJECTIVE: Vital Signs Period Temp Pulse Resp BP Sys/Phipps Pulse Ox Last 24 Hr 99.7 F-101.1 F 70-99 14-26 106-130/62-93 95-99 GENERAL: The patient is sedated and intubated. Scleral icteris present but improved. HEAD: Normal with no signs of trauma. EYES: PERRL, No ptosis. ENT: ET tube in place LUNGS: clear to auscultation bilaterally, decreased breath sounds at the bases. HEART: regular rhythm, S1, S2 without murmur, rub or gallop. ABDOMEN: Soft, nontender, distended globose abdomen but much softer compared to prior days EXTREMITIES: 2+ pulses, warm, well-perfused, 2+ edema. fungal rash around genital region Laboratory Results - last 24 hr 01/23/19 01/23/19 01/24/19 05:35 15:40 05:15 WBC 13.3 H RBC 3.74 L Hgb 12.8 Hct 38.0 MCV 101.7 H MCH 34.2 H MCHC 33.6 RDW 16.2 H Plt Count 302 MPV 10.3 Absolute Neuts (auto) 9.3 H Neutrophils % 70.1 Neutrophils % (Manual) 56.8 Band Neutrophils % 12.6 Lymphocytes % 14.1 D Lymphocytes % (Manual) 10.5 D Monocytes % 10.7 H Monocytes % (Manual) 6 D Eosinophils % 2.1 D Eosinophils % (Manual) 2.1 Basophils % 3.0 H Basophils % (Manual) 1.1 D Myelocytes % (Man) 7 H D Promyelocytes % (Man) 0 Blast Cells % (Manual) 0 Nucleated RBC % 0 Metamyelocytes 3 H D Hypochromia 0 Platelet Estimate Normal Polychromasia 1+ Poikilocytosis 1+ Anisocytosis 1+ Microcytosis 0 Macrocytosis 1+ Tear Drop Cells 2+ Ovalocytes 1+ PT with INR INR Sodium 137 Potassium 3.6 Chloride 100 Carbon Dioxide 29 Anion Gap 8 BUN 7.2 Creatinine 0.7 Est GFR (CKD-EPI)AfAm 138.75 Est GFR (CKD-EPI)NonAf 119.71 Random Glucose 100 Calcium 8.4 L Phosphorus 2.3 L Total Bilirubin AST ALT Alkaline Phosphatase Ammonia Total Protein Albumin 01/24/19 01/24/1919 05:15 05:15 05:35 WBC RBC Hgb Hct MCV MCH MCHC RDW Plt Count MPV Absolute Neuts (auto) Neutrophils % Neutrophils % (Manual) Band Neutrophils % Lymphocytes % Lymphocytes % (Manual) Monocytes % Monocytes % (Manual) Eosinophils % Eosinophils % (Manual) Basophils % Basophils % (Manual) Myelocytes % (Man) Promyelocytes % (Man) Blast Cells % (Manual) Nucleated RBC % Metamyelocytes Hypochromia Platelet Estimate Polychromasia Poikilocytosis Anisocytosis Microcytosis Macrocytosis Tear Drop Cells Ovalocytes PT with INR 13.50 H INR 1.14 H Sodium 137 Potassium 3.6 Chloride 98 Carbon Dioxide 31 Anion Gap 8 BUN 10.8 Creatinine 0.7 Est GFR (CKD-EPI)AfAm 138.75 Est GFR (CKD-EPI)NonAf 119.71 Random Glucose 103 Calcium 8.0 L Phosphorus 2.6 Total Bilirubin 8.9 H AST 196 H ALT 92 H Alkaline Phosphatase 179 H Ammonia 120.50 H Total Protein 6.0 L Albumin 1.6 L Active Medications Generic Name Dose Route Start Last Admin Trade Name Freq PRN Reason Stop Dose Admin Chlorhexidine Gluconate 1 applic 01/16/19 22:00 01/23/19 21:19 Hibiclens For Decolonization - TP 1 applic HS MIESHA Administration Folic Acid 1 mg 01/17/19 10:00 01/24/19 09:49 Folic Acid - PO Not Given DAILY MIESHA Heparin Sodium (Porcine) 5,000 unit 01/19/19 14:00 01/24/19 05:35 Heparin - SQ 5,000 unit TID MIESHA Administration Hydrocortisone 1 applic 01/21/19 13:00 Hytone 0.5% Cream - TP DAILY PRN ALLERGIES Propofol 1,000,000 mcg in 100 mls @ 2.722 mls/hr 01/17/19 06:30 01/24/19 09: 52 Diprivan - IVPB 40 mcg/kg/min TITR MIESHA 21.772 mls/hr Administration Protocol 5 MCG/KG/MIN Multivitamins/Minerals 10 ml/ 1,010 mls @ 42 mls/hr 01/23/19 14:00 01/23/19 15:23 Amino Acids IV 42 mls/hr Q24H MIESHA Administration Famotidine/Sodium Chloride 20 mg in 50 mls @ 100 mls/hr 01/24/19 10:45 Pepcid 20 Mg Premixed Ivpb - IVPB DAILY MIESHA Lactulose 30 gm 01/24/19 10:37 Cephulac (Oral Use) GT BID MIESHA Nystatin 1 applic 01/24/19 10:45 Mycostatin Cream - TP BID MIESHA Thiamine HCl 200 mg 01/22/19 10:00 01/24/19 09:50 Vitamin B1 Injection - IVPB 200 mg DAILY MIESHA Administration ASSESSMENT/PLAN: 38M [facility] pt (etoh detox 01/15/19) PMH HTN, polysubstance abuse(1.5 pints vodka daily, on methadone) admitted to ICU for severe alcohol withdrawal with DT 's. Delirium Tremens patient back on Propofol currently at 40 mcg/kg/min c/w banana bag thiamine, folate, B12 f/u electrolytes , replete as needed Trial of enteral feeds. so far tolerated. If high residuals, consider short course of reglan 5mg IVPB Q8 hours Aspiration precautions alcoholic hepatitis Hold steroids at this moment as per GI LFTs continues trending down but AST today higher at 196, ammonia level 120 compared to 57 from admission. Lactulose was being held will resume. Low suction currently but will stop for 2 hours to administer lactulose for hyperammonemia. When resumed NG suction if no change, CT scan Rash most likely fungal in origin topical nystatin cream BID DAMIAN, likely in setting of Type I (severe) hepatorenal syndrome/cirrhosis Cr 0.7 stable Ruvalcaba, strict I/O- pt making adequate amount of urine. No NSAIDs Avoid contrast exposure Recurrent fever afebrile with rectal temp of 99.7 Per ID D/C ed ertapenem for drug rash concern DVT Hep subQ Visit type - Emergency Visit Emergency Visit: Yes ED Registration Date: 01/16/19 Care time: The patient presented to the Emergency Department on the above date and was hospitalized for further evaluation of their emergent condition. - New Patient This patient is new to me today: No - Critical Care Critical Care patient: Yes Total Critical Care Time (in minutes): 35 Critical Care Statement: The care of this patient involved high complexity decision making to prevent further life threatening deterioration of the patient 's condition and/or to evaluate & treat vital organ system(s) failure or risk of failure. ATTENDING PHYSICIAN STATEMENT I saw and evaluated the patient. I reviewed the resident's note and discussed the case with the resident. I agree with the resident's findings and plan as documented. SUBJECTIVE: OBJECTIVE: ASSESSMENT AND PLAN:
[2019-01-24] MEDS: FAMOTIDINE 20 MG/50 ML IVPB 20 MG/50 ML MG IVPB SCH (11:53)
[2019-01-24 12:00] LABS: ANISOCYTOSIS 2+; MACROCYTOSIS 2+; PLATELET ESTIMATE NORMAL
--- NOTE | 2019-01-24 12:13 | PN ---
Progress Note (short form) - Note Progress Note: PULM/CRITICAL CARE PROGRESS NOTE: SUBJECTIVE: Patient seen and examined in the ICU. Remains intubated, sedated. Tolerates PSV 10/8 .40, but secretions and mental status remain barriers to extubation. OBJECTIVE: Vital Signs Temp 100 F H 01/24/19 10:00 Pulse 98 H 01/24/19 10:00 Resp 12 01/24/19 12:02 BP 124/86 01/24/19 10:00 Pulse Ox 97 01/24/19 12:00 Intake & Output 01/23/19 01/24/19 01/24/19 18:59 06:59 18:59 Intake Total 400 804 Output Total 3100 700 Balance -2700 104 Weight 110.314 kg Intake: IV 150 300 DIPRIVAN - 1,000,000 mcg 150 300 In 100 ml @ 5 MCG/KG/MIN 2.722 mls/hr IVPB TITR MIESHA Rx#:[id number] IVPB 250 504 Output: Gastric Drainage 300 200 Urine 2800 500 Ruvalcaba 2800 500 Other: Voiding Method Indwelling Catheter Indwelling Catheter Indwelling Catheter Body Mass Index (BMI) 31.6 Current Medications Chlorhexidine Gluconate (Hibiclens For Decolonization -) 1 applic TP HS [facility] Last Admin: 01/23/19 21:19 Dose: 1 applic Folic Acid (Folic Acid -) 1 mg PO DAILY [facility] Last Admin: 01/24/19 09:49 Dose: Not Given Heparin Sodium (Porcine) (Heparin -) 5,000 unit SQ TID MIESHA Last Admin: 01/24/19 05:35 Dose: 5,000 unit Hydrocortisone (Hytone 0.5% Cream -) 1 applic TP DAILY PRN PRN Reason: ALLERGIES Propofol (Diprivan -) 1,000,000 mcg in 100 mls @ 2.722 mls/hr IVPB TITR MIESHA; Protocol Last Admin: 01/24/19 09:52 Dose: 40 mcg/kg/min, 21.772 mls/hr Multivitamins/Minerals 10 ml/ (Amino Acids) 1,010 mls @ 42 mls/hr IV Q24H MIESHA Last Admin: 01/23/19 15:23 Dose: 42 mls/hr Famotidine/Sodium Chloride (Pepcid 20 Mg Premixed Ivpb -) 20 mg in 50 mls @ 100 mls/hr IVPB DAILY MIESHA Last Admin: 01/24/19 11:53 Dose: 100 mls/hr Lactulose (Cephulac (Oral Use)) 30 gm GT BID MIESHA Nystatin (Mycostatin Cream -) 1 applic TP BID MIESHA Last Admin: 01/24/19 11:53 Dose: 1 applic Thiamine HCl (Vitamin B1 Injection -) 200 mg IVPB DAILY MIESHA Last Admin: 01/24/19 09:50 Dose: 200 mg EXAM: Gen: intubated, sedated, jaundiced Heart: RRR Lung: decreased breath sounds at the bases Abd: distended Ext: + edema CBC, BMP 01/24/19 05:15 01/24/19 05:15 ASSESSMENT AND PLAN: Acute Respiratory Failure Acute Alcohol Withdrawal/Delerium Tremens Alcoholic Hepatitis Acute Kidney Injury improving Hepatic Encephalopathy Coagulopathy Lactic Acidosis UTI Hyponatremia Methadone Maintenance HTN - NGT decompression - May need CT - Antibiotics per ID - replete lytes PRN - monitor urine output, creatinine - continue lactulose - daily sedation vacations to assess mental status - spontaneous breathing trials daily - DVT/GI prophylaxis - Requires continued ICU monitoring Critical Care Time 45min Mann [facility] Pulm/Critical Care SENIOR DEVELOPER
--- NOTE | 2019-01-24 14:00 | PN ---
Teaching Attending Note Name of Resident: Yennifer Terrell ATTENDING PHYSICIAN STATEMENT I saw and evaluated the patient. I reviewed the resident's note and discussed the case with the resident. I agree with the resident's findings and plan as documented. SUBJECTIVE: No events over night OBJECTIVE: Sedated, intubated. round equal and reactive pupils. icteric sclera . jaundiced skin ( improved ) CV: RRR, no MRG Lungs: CTAB anteriorly Abd: distended, NL BS, tympanic, soft Ext : upper and lower extremity edema groin and medial upper thigh rash ( maculopapular) , worse compared to yesterday ASSESSMENT AND PLAN: 38 y/o man with h/o alcohol abuse, h/o opioid use with methadone maintenance who presented with [facility] with Dts. 1- DTs. off benzo gtt, now off and being sedated. - Cont folic - cont thiamine 2- Acute hypoxic resp failure. due to Dts. weaning trials 3- Fever: infectious vs non infectious . - off Ertapenem - follow c diff when he stools 4- Abdominal distention: likely ileus. - cont decompression with stomach suction - if no improvement will get CT scan 5- Alcoholic hepatitis: - Monitor LFTS - lactulose has been on hold due to distended abd and suctioning . will resume as ammonia level is rising. will stop suction periodically for lactulose administration 6- Peripheral edema, and possible pulm edema. edema improved after lasix x 1 yesterday ( net neg 1396cc yesterday ) 7- Groin rash: likely fungal. start nystatin BID. 8- DVT Px : heparin ICU ASSESSMENT AND PLAN:
[2019-01-24] MEDS: AMINO ACIDS 4.25%/D5W 1,000 ML IV SCH (15:50)
[2019-01-24] MEDS: MULTIVIT INJ. ADULT COMBO WITH VIT K 1 COMBO 10 ML VIAL IV SCH (15:50)
[2019-01-24] MEDS: LACTULOSE 20 GM/30 ML UDC (FOR ORAL USE ONLY) GT SCH (21:09)
[2019-01-24] MEDS: NYSTATIN 100,000 UNIT/GM TOPICAL CREAM 15 GM TUBE TP SCH (21:10)
[2019-01-24] MEDS: CHLORHEXIDINE GLUCONATE 4% CLEANSER FOR DECOLONIZATION TP SCH (21:10)
[2019-01-24] MEDS ORDERED: FUROSEMIDE 40 MG/4 ML INJECTABLE VIAL IVPUSH ONE (22:10)
[2019-01-25] MEDS: HEPARIN NA (PORCINE) 5,000 UNITS/ML 1ML VIAL SQ SCH ×3 (05:51→21:11)
[2019-01-25] MEDS: LACTULOSE 20 GM/30 ML UDC (FOR ORAL USE ONLY) GT SCH ×3 (05:51→21:10)
[2019-01-25] MEDS: PROPOFOL 1,000,000 MCG/100 ML VIAL IVPB SCH (06:54)
[2019-01-25 08:44] LABS: ALBUMIN 1.7 g/dl (3.4-5.0); BILIRUBIN,TOTAL 8.7 mg/dL (0.2-1); CALCIUM 8.3 mg/dL (8.5-10.1); CREATININE 0.6 mg/dL (0.55-1.3); POTASSIUM 3.3 mmol/L (3.5-5.1); TOT PROT 6.5 g/dl (6.4-8.2)
--- NOTE | 2019-01-25 08:47 | PN ---
Progress Note (short form) - Note Progress Note: Subjective: no events over night . Objective: Vital Signs: Last Vital Signs Temp Pulse Resp BP Pulse Ox 98.7 F 84 16 136/96 97 01/25/19 06:00 01/25/19 06:00 01/25/19 06:00 01/25/19 06:00 01/24/19 19:55 Laboratory Results - last 24 hr 01/24/19 01/25/19 01/25/19 05:15 05:20 05:20 Neutrophils % (Manual) 71.6 D Band Neutrophils % 2.0 Lymphocytes % (Manual) 13.7 D Monocytes % (Manual) 2 L Eosinophils % (Manual) 0.0 D Basophils % (Manual) 0.0 Myelocytes % (Man) 4 H D Promyelocytes % (Man) 0 Blast Cells % (Manual) 0 Metamyelocytes 7 H D Hypochromia 0 Platelet Estimate Normal Polychromasia 1+ Poikilocytosis 2+ Anisocytosis 2+ Microcytosis 2+ Macrocytosis 2+ Sodium Cancelled Potassium Cancelled Chloride Cancelled Carbon Dioxide Cancelled Anion Gap Cancelled BUN Cancelled Creatinine Cancelled Est GFR (CKD-EPI)AfAm Cancelled Est GFR (CKD-EPI)NonAf Cancelled Random Glucose Cancelled Calcium Cancelled Total Bilirubin Cancelled AST Cancelled ALT Cancelled Alkaline Phosphatase Cancelled Ammonia Cancelled Total Protein Cancelled Albumin Cancelled 01/25/19 07:48 Neutrophils % (Manual) Band Neutrophils % Lymphocytes % (Manual) Monocytes % (Manual) Eosinophils % (Manual) Basophils % (Manual) Myelocytes % (Man) Promyelocytes % (Man) Blast Cells % (Manual) Metamyelocytes Hypochromia Platelet Estimate Polychromasia Poikilocytosis Anisocytosis Microcytosis Macrocytosis Sodium Potassium Chloride Carbon Dioxide Anion Gap BUN Creatinine Est GFR (CKD-EPI)AfAm Est GFR (CKD-EPI)NonAf Random Glucose Calcium Total Bilirubin AST ALT Alkaline Phosphatase Ammonia 65.60 H Total Protein Albumin Physical Exam: Sedated, intubated. round pupils, R > L. icteric sclera . jaundiced skin CV: RRR, no MRG Lungs: CTAB anteriorly Abd: distended, hypoactive BS, tympanic, softer compared to yesterday Ext : upper ext edema improved. lower extremity edema 2+ fading rash on medial upper thighs, but moist erythema in groins ASSESSMENT AND PLAN: 38 y/o man with h/o alcohol abuse, h/o opioid use with methadone maintenance who presented with [facility] with Dts. 1- DTs. off benzo gtt, now off and being sedated. - weaning trials are unsuccessful, and pupils are unequal today. will send for CT of head - cont lactulose ( stooling with lactulose) 2- Acute hypoxic resp failure. due to Dts. weaning trials no change in vent setting CT of head as above 3- Fever: infectious vs non infectious . - off Ertapenem - c diff was not send yesterday. will send today 4- Abdominal distention: likely ileus. - cont decompression with stomach suction ( 80 cc last night and 100 during the day ) - will get the CT of abd 5- Alcoholic hepatitis: -stable LFTs -cont lactulose, TID, with clamping OJ and holding suction intermittently - ammonia level improved 6- Peripheral edema, improved s/p 1 dose of IV lasix 7- Groin rash: likely fungal.improved. cont nystatin 8- hypokalemia: replete 9- DVT Px : heparin ICU level of care Visit type - Emergency Visit Emergency Visit: Yes ED Registration Date: 01/16/19 Care time: The patient presented to the Emergency Department on the above date and was hospitalized for further evaluation of their emergent condition. - New Patient This patient is new to me today: No - Critical Care Critical Care patient: Yes Total Critical Care Time (in minutes): 35 Critical Care Statement: The care of this patient involved high complexity decision making to prevent further life threatening deterioration of the patient 's condition and/or to evaluate & treat vital organ system(s) failure or risk of failure.
[2019-01-25 09:23] LABS: BASO % 1.2 % (0-2.0); EOS % 2.5 % (0-4.5); HEMATOCRIT 33.8 % (35.4-49); HEMOGLOBIN 11.1 GM/dL (11.7-16.9); LYMPH % 13.2 % (8-40); MCH 34.9 pg (25.7-33.7); MCHC 32.8 g/dl (32.0-35.9); MEAN CELL VOLUME 106.4 fl (80-96); MEAN PLT VOLUME 11.8 fl (7.5-11.1); MONO % 10.1 % (3.8-10.2); PLATELET COUNT 276 K/MM3 (134-434); RBC 3.18 M/mm3 (4.00-5.60); RDW 16.9 % (11.9-15.9); WHITE BLOOD COUNT 11.3 K/mm3 (4.0-10.0)
[2019-01-25] MEDS ORDERED: PT OWN MED DRAWER 7, Y5N ONE (09:29)
--- NOTE | 2019-01-25 09:29 | PN ---
Progress Note (short form) - Note Progress Note: PULM/CRITICAL CARE PROGRESS NOTE: SUBJECTIVE: Patient seen and examined in the ICU. Remains intubated. Low grade fevers continue. Is going for HCT and CT A/P OBJECTIVE: Current Medications Chlorhexidine Gluconate (Hibiclens For Decolonization -) 1 applic TP HS MIESHA Last Admin: 01/24/19 21:10 Dose: 1 applic Folic Acid (Folic Acid -) 1 mg PO DAILY [facility] Last Admin: 01/24/19 09:49 Dose: Not Given Heparin Sodium (Porcine) (Heparin -) 5,000 unit SQ TID [facility] Last Admin: 01/25/19 05:51 Dose: 5,000 unit Hydrocortisone (Hytone 0.5% Cream -) 1 applic TP DAILY PRN PRN Reason: ALLERGIES Propofol (Diprivan -) 1,000,000 mcg in 100 mls @ 2.722 mls/hr IVPB TITR M[facility]; Protocol Last Admin: 01/25/19 06:54 Dose: Not Given Famotidine/Sodium Chloride (Pepcid 20 Mg Premixed Ivpb -) 20 mg in 50 mls @ 100 mls/hr IVPB DAILY [facility] Last Admin: 01/24/19 11:53 Dose: 100 mls/hr Amino Acids (Clinimix -) 1,000 mls @ 42 mls/hr IV Q24H [facility] Last Admin: 01/24/19 15:50 Dose: 42 mls/hr Potassium Chloride (Potassium Chloride 10 Meq Premix Ivpb -) 10 meq in 100 mls @ 100 mls/hr IVPB Q60M [facility] Stop: 01/25/19 12:29 Lactulose (Cephulac (Oral Use)) 30 gm GT TID [facility] Last Admin: 01/25/19 05:51 Dose: 30 gm Multivitamins/Minerals (Infuvite Adult -) 10 ml IV Q24H [facility] Last Admin: 01/24/19 15:50 Dose: 10 ml Nystatin (Mycostatin Cream -) 1 applic TP BID [facility] Last Admin: 01/24/19 21:10 Dose: 1 applic Thiamine HCl (Vitamin B1 Injection -) 200 mg IVPB DAILY [facility] Last Admin: 01/24/19 09:50 Dose: 200 mg Vital Signs Temp 98.7 F 01/25/19 06:00 Pulse 90 09/22/19 08:43 Resp 20 01/25/19 08:43 BP 136/96 01/25/19 06:00 Pulse Ox 97 01/25/19 08:43 Intake & Output 01/24/19 01/25/19 01/25/19 18:59 06:59 18:59 Intake Total 400 756 Output Total 350 1650 Balance 50 -894 Weight 110.314 kg Intake: IV 300 252 DIPRIVAN - 1,000,000 mcg 300 252 In 100 ml @ 5 MCG/KG/MIN 2.722 mls/hr IVPB TITR M[facility] Rx#:[id number] IVPB 50 504 Tube Irrigant 50 Output: Gastric Drainage 50 Urine 350 1600 Ruvalcaba 350 1600 Other: Voiding Method Indwelling Catheter Indwelling Catheter Bowel Movement No EXAM: Gen: intubated, sedated, jaundiced Heart: RRR Lung: decreased breath sounds at the bases Abd: distended, non-tender Ext: + edema CBC, BMP 01/25/19 07:48 ASSESSMENT AND PLAN: Acute Respiratory Failure Acute Alcohol Withdrawal/Delerium Tremens Alcoholic Hepatitis Acute Kidney Injury improving Hepatic Encephalopathy Coagulopathy Lactic Acidosis UTI Hyponatremia Methadone Maintenance HTN - NGT decompression - CT today - Antibiotics per ID - replete lytes PRN - needs diuresis - monitor urine output, creatinine - continue lactulose - daily sedation vacations to assess mental status - spontaneous breathing trials daily - DVT/GI prophylaxis - Requires continued ICU monitoring Critical Care Time 45min [facility] Pulm/Critical Care [employer]
[2019-01-25] MEDS: KCL 10 MEQ IVPB 10 MEQ/100 ML INFUS.BAG IVPB SCH ×3 (09:33→12:43)
[2019-01-25] MEDS: FOLIC ACID 1 MG TABLET (FP) PO SCH (09:34)
[2019-01-25] MEDS: THIAMINE HCL 200 MG/2 ML VIAL IVPB SCH (09:34)
[2019-01-25] MEDS: FAMOTIDINE 20 MG/50 ML IVPB 20 MG/50 ML MG IVPB SCH (09:34)
[2019-01-25] MEDS: NYSTATIN 100,000 UNIT/GM TOPICAL CREAM 15 GM TUBE TP SCH ×2 (09:42→21:14)
[2019-01-25 11:46] LABS: ANISOCYTOSIS 1+; MACROCYTOSIS 1+; OVALOCYTE 1+; PLATELET ESTIMATE NORMAL
[2019-01-25] MEDS: AMINO ACIDS 4.25%/D5W 1,000 ML IV SCH (14:09)
[2019-01-25] MEDS: MULTIVIT INJ. ADULT COMBO WITH VIT K 1 COMBO 10 ML VIAL IV SCH (14:11)
--- NOTE | 2019-01-25 14:50 | PN ---
Progress Note (short form) - Note Progress Note: fevers trending down has ngt s/p ct head and abd/plelvis Vital Signs Period Temp Pulse Resp BP Sys/Phipps Pulse Ox Last 24 Hr 98.7 F-100.4 F 84-98 16-23 123-140/80-109 95-98 cor-rrr lungs clear abd protuberant, softer ext no edema rash on flanks and groin improved CBC, BMP 01/25/19 05:20 01/25/19 07:48 Current Medications Chlorhexidine Gluconate (Hibiclens For Decolonization -) 1 applic TP HS [facility] Last Admin: 01/24/19 21:10 Dose: 1 applic Folic Acid (Folic Acid -) 1 mg PO DAILY [facility] Last Admin: 01/25/19 09:34 Dose: 1 mg Heparin Sodium (Porcine) (Heparin -) 5,000 unit SQ TID [facility] Last Admin: 01/25/19 14:07 Dose: 5,000 unit Hydrocortisone (Hytone 0.5% Cream -) 1 applic TP DAILY PRN PRN Reason: ALLERGIES Propofol (Diprivan -) 1,000,000 mcg in 100 mls @ 2.722 mls/hr IVPB TITR M[facility]; Protocol Last Admin: 01/25/19 06:54 Dose: Not Given Famotidine/Sodium Chloride (Pepcid 20 Mg Premixed Ivpb -) 20 mg in 50 mls @ 100 mls/hr IVPB DAILY [facility] Last Admin: 01/25/19 09:34 Dose: 100 mls/hr Amino Acids (Clinimix -) 1,000 mls @ 42 mls/hr IV Q24H [facility] Last Admin: 01/25/19 14:09 Dose: 42 mls/hr Lactulose (Cephulac (Oral Use)) 30 gm GT TID [facility] Last Admin: 01/25/19 14:06 Dose: 30 gm Multivitamins/Minerals (Infuvite Adult -) 10 ml IV Q24H [facility] Last Admin: 01/25/19 14:11 Dose: 10 ml Nystatin (Mycostatin Cream -) 1 applic TP BID [facility] Last Admin: 01/25/19 09:42 Dose: 1 applic Thiamine HCl (Vitamin B1 Injection -) 200 mg IVPB DAILY [facility] Last Admin: 01/25/19 09:34 Dose: 200 mg Microbiology 01/19/19 09:25 Blood - Peripheral Venous Blood Culture - Final NO GROWTH AFTER 5 DAYS INCUBATION 01/19/19 09:30 Blood - Peripheral Venous Blood Culture - Final NO GROWTH AFTER 5 DAYS INCUBATION 01/19/19 18:00 Sputum - Endotrachea Suction/Ventilator Gram Stain - Final 01/19/19 18:00 Sputum - Endotrachea Suction/Ventilator Sputum Culture - Final Klebsiella Pneumoniae - Esbl Proteus Mirabilis Staphylococcus Aureus Strep Agalactiae Group B 01/17/19 06:38 Blood - Peripheral Venous Blood Culture - Final NO GROWTH AFTER 5 DAYS INCUBATION 01/17/19 06:38 Blood - Peripheral Venous Blood Culture - Final NO GROWTH AFTER 5 DAYS INCUBATION 01/19/19 13:45 Urine - Urine Ruvalcaba Urine Culture - Final NO GROWTH OBTAINED 01/17/19 02:30 Sputum - Endotrachea Suction/Ventilator Gram Stain - Final 01/17/19 02:30 Sputum - Endotrachea Suction/Ventilator Sputum Culture - Final Strep Agalactiae Group B 01/16/19 21:50 Urine - Urine Clean Catch Urine Culture - Final NO GROWTH OBTAINED a/p fevers improved ?drug rash, ?fungal rash ?secondary to etoh hepatitis observe off antibiotics f/u ct scan results alcohol withdrawal etoh hepatitis- bilirubin trending down acute respiratory failure gretchen- resolved d/w hospitalist Problem List - Problems (1) Fever Code(s): R50.9 - FEVER, UNSPECIFIED Qualifiers: Fever type: due to other condition Qualified Code(s): R50.81 - Fever presenting with conditions classified elsewhere (2) Alcohol withdrawal Code(s): F10.239 - ALCOHOL DEPENDENCE WITH WITHDRAWAL, UNSPECIFIED (3) Alcoholic hepatitis Code(s): K70.10 - ALCOHOLIC HEPATITIS WITHOUT ASCITES Qualifiers: Ascites presence: without ascites Qualified Code(s): K70.10 - Alcoholic hepatitis without ascites (4) Acute respiratory failure Code(s): J96.00 - ACUTE RESPIRATORY FAILURE, UNSP W HYPOXIA OR HYPERCAPNIA Qualifiers: Respiratory failure complication: unspecified whether with hypoxia or hypercapnia Qualified Code(s): J96.00 - Acute respiratory failure, unspecified whether with hypoxia or hypercapnia
--- NOTE | 2019-01-25 15:26 | PN.GI ---
GI Progress Note Subjective: coverage for Dr Trujillo Patient remians intubated, LFTS trending downward DT--pneumonia,ileus,hepatomegaly - Objective Vital Signs: Vital Signs Temperature 99.6 F 01/25/19 14:00 Pulse Rate 87 01/25/19 14:00 Respiratory Rate 18 01/25/19 14:00 Blood Pressure 130/93 01/25/19 14:00 O2 Sat by Pulse Oximetry (%) 98 01/25/19 10:00 Constitutional: Other (intubated) Cardiovascular: Yes: Regular Rate and Rhythm Respiratory: Yes: CTA Bilaterally ...Palpate: Yes: Soft. No: Firm/Rigid, Guarding, Hepatomegaly, Mass, Pulsatile Mass, Splenomegaly, Tenderness Labs: CBC, BMP 01/25/19 05:20 01/25/19 07:48 INR, PTT INR 1.14 (0.83-1.09) H 01/24/19 05:15 Hepatic Panel Total Bilirubin 8.7 mg/dL (0.2-1) H 01/25/19 07:48 Direct Bilirubin 10.5 mg/dL (0.0-0.2) H 01/20/19 05:45 AST 204 U/L (15-37) H 01/25/19 07:48 ALT 104 U/L (13-61) H 01/25/19 07:48 Alkaline Phosphatase 178 U/L (45-117) H 01/25/19 07:48 Albumin 1.7 g/dl (3.4-5.0) L 01/25/19 07:48 Problem List - Problems (1) Acute respiratory failure Assessment/Plan: R> continue abx Code(s): J96.00 - ACUTE RESPIRATORY FAILURE, UNSP W HYPOXIA OR HYPERCAPNIA Qualifiers: Respiratory failure complication: unspecified whether with hypoxia or hypercapnia Qualified Code(s): J96.00 - Acute respiratory failure, unspecified whether with hypoxia or hypercapnia (2) Alcohol withdrawal delirium Code(s): F10.231 - ALCOHOL DEPENDENCE WITH WITHDRAWAL DELIRIUM (3) Alcoholic hepatitis Assessment/Plan: R> continue to trend LFTs Dr Montano to resume care in am Code(s): K70.10 - ALCOHOLIC HEPATITIS WITHOUT ASCITES Qualifiers: Ascites presence: without ascites Qualified Code(s): K70.10 - Alcoholic hepatitis without ascites
[2019-01-25] MEDS: FUROSEMIDE 40 MG/4 ML INJECTABLE VIAL IVPUSH SCH ×2 (18:05→21:11)
[2019-01-25] MEDS: CHLORHEXIDINE GLUCONATE 4% CLEANSER FOR DECOLONIZATION TP SCH (21:11)
[2019-01-26] MEDS: LACTULOSE 20 GM/30 ML UDC (FOR ORAL USE ONLY) GT SCH ×3 (05:38→22:03)
[2019-01-26] MEDS: HEPARIN NA (PORCINE) 5,000 UNITS/ML 1ML VIAL SQ SCH (05:38)
[2019-01-26] MEDS: PROPOFOL 1,000,000 MCG/100 ML VIAL IVPB SCH (05:41)
[2019-01-26 06:31] LABS: BASO % 3.5 % (0-2.0); EOS % 3.7 % (0-4.5); HEMATOCRIT 35.8 % (35.4-49); HEMOGLOBIN 12.3 GM/dL (11.7-16.9); LYMPH % 13.1 % (8-40); MCH 34.8 pg (25.7-33.7); MCHC 34.4 g/dl (32.0-35.9); MEAN CELL VOLUME 101.3 fl (80-96); MEAN PLT VOLUME 9.8 fl (7.5-11.1); MONO % 9.7 % (3.8-10.2); PLATELET COUNT 314 K/MM3 (134-434); RBC 3.53 M/mm3 (4.00-5.60); RDW 16.3 % (11.9-15.9); WHITE BLOOD COUNT 12.9 K/mm3 (4.0-10.0)
[2019-01-26 07:19] LABS: ALBUMIN 1.8 g/dl (3.4-5.0); BILIRUBIN,TOTAL 7.8 mg/dL (0.2-1); BLOOD UREA NITROGEN 12.3 mg/dL (7-18); CALCIUM 8.2 mg/dL (8.5-10.1); CREATININE 0.6 mg/dL (0.55-1.3); MAGNESIUM 1.6 mg/dL (1.8-2.4); PHOSPHOROUS 3.5 mg/dL (2.5-4.9); POTASSIUM 3.4 mmol/L (3.5-5.1); TOT PROT 6.5 g/dl (6.4-8.2)
[2019-01-26] MEDS ORDERED: MAGNESIUM SULF 50% (8.12 MEQ/2 ML-1 GM VIAL) IVPB ONE (08:45)
--- NOTE | 2019-01-26 09:39 | PN ---
Progress Note (short form) - Note Progress Note: fevers trending down eyes open not following commands remains intubated Vital Signs Period Temp Pulse Resp BP Sys/Phipps Pulse Ox Last 24 Hr 99.1 F-100.6 F 84-102 14-24 113-142/85-109 95-98 cor-rrr lungs decreased bs at bases abd soft,protuberant, NT, +BS ext no edema +cook rash almost resolved CBC, BMP 01/26/19 05:35 01/26/19 05:35 Laboratory Tests 01/19/19 01/26/19 05:20 05:35 Calcium 8.2 L Total Bilirubin 14.0 H 7.8 H Direct Bilirubin 11.7 H AST 220 H 207 H ALT 87 H 115 H Alkaline Phosphatase [address] scan mild ileus, distended GB no stones head ct no acute process Current Medications Chlorhexidine Gluconate (Hibiclens For Decolonization -) 1 applic TP HS [facility] Last Admin: 01/25/19 21:11 Dose: 1 applic Folic Acid (Folic Acid -) 1 mg PO DAILY [facility] Last Admin: 01/25/19 09:34 Dose: 1 mg Furosemide (Lasix Injection -) 40 mg IVPUSH BID [facility] Last Admin: 01/25/19 21:11 Dose: 40 mg Heparin Sodium (Porcine) (Heparin -) 5,000 unit SQ TID [facility] Last Admin: 01/26/19 05:38 Dose: 5,000 unit Propofol (Diprivan -) 1,000,000 mcg in 100 mls @ 2.722 mls/hr IVPB TITR MIESHA; Protocol Last Admin: 01/26/19 05:41 Dose: 40 mcg/kg/min, 21.772 mls/hr Famotidine/Sodium Chloride (Pepcid 20 Mg Premixed Ivpb -) 20 mg in 50 mls @ 100 mls/hr IVPB DAILY [facility] Last Admin: 01/25/19 09:34 Dose: 100 mls/hr Amino Acids (Clinimix -) 1,000 mls @ 42 mls/hr IV Q24H [facility] Last Admin: 01/25/19 14:09 Dose: 42 mls/hr Potassium Chloride (Potassium Chloride 10 Meq Premix Ivpb -) 10 meq in 100 mls @ 100 mls/hr IVPB Q60M [facility] Stop: 01/26/19 10:44 Lactulose (Cephulac (Oral Use)) 30 gm GT TID [facility] Last Admin: 01/26/19 05:38 Dose: 30 gm Multivitamins/Minerals (Infuvite Adult -) 10 ml IV Q24H [facility] Last Admin: 01/25/19 14:11 Dose: 10 ml Nystatin (Mycostatin Cream -) 1 applic TP BID [facility] Last Admin: 01/25/19 21:14 Dose: 1 applic Thiamine HCl (Vitamin B1 Injection -) 200 mg IVPB DAILY [facility] Last Admin: 01/25/19 09:34 Dose: 200 mg a/p fevers improved -suspect ETOH hepatitis ?drug rash, ?fungal rash-resolving alcohol withdrawal etoh hepatitis- LFTS improving acute respiratory failure gretchen- resolved continue to observe off antiibotics Problem List - Problems (1) Fever Code(s): R50.9 - FEVER, UNSPECIFIED Qualifiers: Fever type: due to other condition Qualified Code(s): R50.81 - Fever presenting with conditions classified elsewhere (2) Alcohol withdrawal Code(s): F10.239 - ALCOHOL DEPENDENCE WITH WITHDRAWAL, UNSPECIFIED (3) Alcoholic hepatitis Code(s): K70.10 - ALCOHOLIC HEPATITIS WITHOUT ASCITES Qualifiers: Ascites presence: without ascites Qualified Code(s): K70.10 - Alcoholic hepatitis without ascites (4) Acute respiratory failure Code(s): J96.00 - ACUTE RESPIRATORY FAILURE, UNSP W HYPOXIA OR HYPERCAPNIA Qualifiers: Respiratory failure complication: unspecified whether with hypoxia or hypercapnia Qualified Code(s): J96.00 - Acute respiratory failure, unspecified whether with hypoxia or hypercapnia
[2019-01-26] MEDS: KCL 10 MEQ IVPB 10 MEQ/100 ML INFUS.BAG IVPB SCH ×2 (09:40→11:00)
[2019-01-26] MEDS: FOLIC ACID 1 MG TABLET (FP) PO SCH (10:40)
[2019-01-26] MEDS: FUROSEMIDE 40 MG/4 ML INJECTABLE VIAL IVPUSH SCH ×2 (10:41→22:03)
[2019-01-26] MEDS: NYSTATIN 100,000 UNIT/GM TOPICAL CREAM 15 GM TUBE TP SCH ×2 (10:42→22:03)
[2019-01-26] MEDS: FAMOTIDINE 20 MG/50 ML IVPB 20 MG/50 ML MG IVPB SCH (10:42)
[2019-01-26] MEDS: THIAMINE HCL 200 MG/2 ML VIAL IVPB SCH (10:43)
--- NOTE | 2019-01-26 11:53 | PN ---
Teaching Attending Note Name of Resident: Yennifer Terrell ATTENDING PHYSICIAN STATEMENT I saw and evaluated the patient. I reviewed the resident's note and discussed the case with the resident. I agree with the resident's findings and plan as documented. SUBJECTIVE: No events over night . had Big BM yestrday Am although not documented in I&O OBJECTIVE: awake, off sedation , slightly tracks. round pupils. R still slightly bigger than L . icteric sclera . jaundiced skin CV: RRR, no MRG Lungs: CTAB anteriorly Abd: distended( slightly worse compared to yesterday), hypoactive BS, tympanic, soft Ext : upper ext edema improved. lower extremity edema 2+ fading rash on medial upper thighs. fading rash on flanks ASSESSMENT AND PLAN: 38 y/o man with h/o alcohol abuse, h/o opioid use with methadone maintenance who presented with [facility] with Dts. 1- DTs. 2- Acute hypoxic resp failure. 3- Acute alcoholic hepatitis 4- Fever 5- drug rash vs fungal rash 6-Ileus 7- Acute resp failure 8- Peripheral edema 10 -leukocytosis 11- hypokalemia, hypomagnesemia plan: - cont weaning trials. more awake today . - cont lactulose with intermittent interruption of the suction - cont to monitor off Abx. no more fevers - cont stomach decompression - Monitor LFTS - cont nystatin to groin areas dispo : ICU level of care Critical Care Total Critical Care Time (in minutes): 30 Critical Care Statement: The care of this patient involved high complexity decision making to prevent further life threatening deterioration of the patient 's condition and/or to evaluate & treat vital organ system(s) failure or risk of failure.
--- NOTE | 2019-01-26 12:27 | PN ---
Teaching Attending Note Name of Resident: Anthony Mae ATTENDING PHYSICIAN STATEMENT I saw and evaluated the patient. I reviewed the resident's note and discussed the case with the resident. I agree with the resident's findings and plan as documented. SUBJECTIVE: Patient seen and examined in the ICU. Remains intubated, sedated. Less abdominal distention noted. OBJECTIVE: Intake & Output 01/23/19 01/24/19 01/25/19 01/26/19 23:59 23:59 23:59 23:59 Intake Total 1904 1204 2096 1050 Output Total 3300 1850 3350 100 Balance -1396 -646 -1254 950 Weight 202 lb 14.4 oz 243 lb 3.2 oz 243 lb 3.2 oz 243 lb 3.2 oz Last Vital Signs Temp Pulse Resp BP Pulse Ox 99.9 F H 100 H 25 H 145/93 97 01/26/19 10:00 01/26/19 10:00 01/26/19 10:00 01/26/19 10:00 01/26/19 09:00 Active Medications Chlorhexidine Gluconate (Hibiclens For Decolonization -) 1 applic TP HS [facility] Last Admin: 01/25/19 21:11 Dose: 1 applic Folic Acid (Folic Acid -) 1 mg PO DAILY [facility] Last Admin: 01/26/19 10:40 Dose: 1 mg Furosemide (Lasix Injection -) 40 mg IVPUSH BID [facility] Last Admin: 01/26/19 10:41 Dose: 40 mg Heparin Sodium (Porcine) (Heparin -) 5,000 unit SQ TID [facility] Last Admin: 01/26/19 05:38 Dose: 5,000 unit Propofol (Diprivan -) 1,000,000 mcg in 100 mls @ 2.722 mls/hr IVPB TITR MIESHA; Protocol Last Titration: 01/26/19 10:43 Dose: 50 mcg/kg/min, 27.215 mls/hr Famotidine/Sodium Chloride (Pepcid 20 Mg Premixed Ivpb -) 20 mg in 50 mls @ 100 mls/hr IVPB DAILY [facility] Last Admin: 01/26/19 10:42 Dose: 100 mls/hr Amino Acids (Clinimix -) 1,000 mls @ 42 mls/hr IV Q24H [facility] Last Admin: 01/25/19 14:09 Dose: 42 mls/hr Lactulose (Cephulac (Oral Use)) 30 gm GT TID [facility] Last Admin: 01/26/19 05:38 Dose: 30 gm Multivitamins/Minerals (Infuvite Adult -) 10 ml IV Q24H [facility] Last Admin: 01/25/19 14:11 Dose: 10 ml Nystatin (Mycostatin Cream -) 1 applic TP BID [facility] Last Admin: 01/26/19 10:42 Dose: 1 applic Thiamine HCl (Vitamin B1 Injection -) 200 mg IVPB DAILY [facility] Last Admin: 01/26/19 10:43 Dose: 200 mg Gen: intubated, sedated, jaundiced Heart: RRR Lung: decreased breath sounds at the bases Abd: distended Ext: + edema Laboratory Results - last 24 hr 01/26/19 01/26/19 05:35 05:35 WBC 12.9 H RBC 3.53 L Hgb 12.3 Hct 35.8 MCV 101.3 H MCH 34.8 H MCHC 34.4 RDW 16.3 H Plt Count 314 MPV 9.8 D Absolute Neuts (auto) 9.0 H Neutrophils % 70.0 Lymphocytes % 13.1 Monocytes % 9.7 Eosinophils % 3.7 Basophils % 3.5 H Nucleated RBC % 0 Sodium 136 Potassium 3.4 L Chloride 98 Carbon Dioxide 30 Anion Gap 7 L BUN 12.3 Creatinine 0.6 Est GFR (CKD-EPI)AfAm 147.82 Est GFR (CKD-EPI)NonAf 127.55 Random Glucose 110 H Calcium 8.2 L Phosphorus 3.5 Magnesium 1.6 L Total Bilirubin 7.8 H AST 207 H ALT 115 H Alkaline Phosphatase 162 H Total Protein 6.5 Albumin 1.8 L ASSESSMENT AND PLAN: Acute Respiratory Failure Acute Alcohol Withdrawal/Delerium Tremens Alcoholic Hepatitis Acute Kidney Injury improving Hepatic Encephalopathy Coagulopathy Lactic Acidosis UTI Hyponatremia Methadone Maintenance HTN - DC Sedation to assess mental status - Start enteral feeds & DC Clinimix - Wean trials depending on mental status - Continue antibiotics - replete lytes PRN - monitor urine output, creatinine - continue lactulose - DVT/GI prophylaxis - Requires continued ICU monitoring Dr Fry Critical care time spent in reviewing chart, evaluating patient and formulating plan 35 min
[2019-01-26 13:50] LABS: ANISOCYTOSIS 1+; MACROCYTOSIS 1+; PLATELET ESTIMATE NORMAL
[2019-01-26] MEDS: AMINO ACIDS 4.25%/D5W 1,000 ML IV SCH (14:00)
--- NOTE | 2019-01-26 14:03 | PN.GI ---
GI Progress Note Subjective: Pt seen/examined, remains intubated, eyes partially open though not following commands, ~250cc bilious output in OGT, no bms per nursing staff. - Objective Vital Signs: Vital Signs Temperature 100.2 F H 01/26/19 12:00 Pulse Rate 104 H 01/26/19 12:00 Respiratory Rate 25 H 01/26/19 12:23 Blood Pressure 119/83 01/26/19 12:00 O2 Sat by Pulse Oximetry (%) 97 01/26/19 10:00 Constitutional: Other (Intubated, does not follow commands) Cardiovascular: Yes: WNL, Regular Rate and Rhythm Respiratory: Yes: Mechanically Ventilated ...Palpate: Yes: Other (Abd softly distended, no tenderness elicited) Labs: CBC, BMP 01/26/19 05:35 01/26/19 05:35 INR, PTT INR 1.14 (0.83-1.09) H 01/24/19 05:15 Problem List - Problems (1) Alcoholic hepatitis Assessment/Plan: 38yo male h/o etoh abuse presenting with increased agitation and elevated LFTs s /p intubation. Likely delirium tremens in setting of etoh hepatitis. LFTs slowly improving. No biochemical features to suggest impending liver failure. Hepatitis panel negative. CT abd/pelvis revealing hepatomegaly, ileus pattern, and pneumonia. -Continue supportive measures -Continue to monitor LFTs and coags -Follow up cultures and ID recommendations - monitoring off antibiotics for now -Start trial of enteral feeds as tolerated -Monitor for BMs -Further management per MICU Code(s): K70.10 - ALCOHOLIC HEPATITIS WITHOUT ASCITES Qualifiers: Ascites presence: without ascites Qualified Code(s): K70.10 - Alcoholic hepatitis without ascites
--- NOTE | 2019-01-26 14:36 | PN ---
Physical Exam: SUBJECTIVE: Patient seen and examined at bedside this AM. No acute events overnight. Pt tolerating wean off sedation. OBJECTIVE: Vital Signs Period Temp Pulse Resp BP Sys/Phipps Pulse Ox Last 24 Hr 99.1 F-100.6 F 84-104 14-25 113-145/83-98 95-98 GENERAL: The patient is off sedation during rounds. ENT: og tube removed, ng tube placed. NECK: supple. LUNGS: Breath sounds equal, clear to auscultation bilaterally, no wheezes, no crackles, no accessory muscle use. HEART: Regular rate and rhythm, S1, S2 without murmur, rub or gallop. ABDOMEN: Soft, nontender, distended, no guarding, no rebound. EXTREMITIES: 2+ pulses, warm, well-perfused, no edema. SKIN: Warm, dry, rash improved on groin and back. Laboratory Results - last 24 hr 01/26/19 01/26/19 05:35 05:35 WBC 12.9 H RBC 3.53 L Hgb 12.3 Hct 35.8 MCV 101.3 H MCH 34.8 H MCHC 34.4 RDW 16.3 H Plt Count 314 MPV 9.8 D Absolute Neuts (auto) 9.0 H Neutrophils % 70.0 Neutrophils % (Manual) 71.4 Band Neutrophils % 3.9 Lymphocytes % 13.1 Lymphocytes % (Manual) 11.7 Monocytes % 9.7 Monocytes % (Manual) 3 L Eosinophils % 3.7 Eosinophils % (Manual) 2.6 Basophils % 3.5 H Basophils % (Manual) 0.0 Myelocytes % (Man) 4 H D Promyelocytes % (Man) 0 Blast Cells % (Manual) 0 Nucleated RBC % 0 Metamyelocytes 3 H D Hypochromia 0 Platelet Estimate Normal Polychromasia 0 Poikilocytosis 0 Anisocytosis 1+ Microcytosis 0 Macrocytosis 1+ Sodium 136 Potassium 3.4 L Chloride 98 Carbon Dioxide 30 Anion Gap 7 L BUN 12.3 Creatinine 0.6 Est GFR (CKD-EPI)AfAm 147.82 Est GFR (CKD-EPI)NonAf 127.55 Random Glucose 110 H Calcium 8.2 L Phosphorus 3.5 Magnesium 1.6 L Total Bilirubin 7.8 H AST 207 H ALT 115 H Alkaline Phosphatase 162 H Total Protein 6.5 Albumin 1.8 L Active Medications Generic Name Dose Route Start Last Admin Trade Name Freq PRN Reason Stop Dose Admin Chlorhexidine Gluconate 1 applic 01/16/19 22:00 01/25/19 21:11 Hibiclens For Decolonization - TP 1 applic HS MIESHA Administration Folic Acid 1 mg 01/17/19 10:00 01/26/19 10:40 Folic Acid - PO 1 mg DAILY MIESHA Administration Furosemide 40 mg 01/25/19 18:00 01/26/19 10:41 Lasix Injection - IVPUSH 40 mg BID MIESHA Administration Propofol 1,000,000 mcg in 100 mls @ 2.722 mls/hr 01/17/19 06:30 01/26/19 11: 30 Diprivan - IVPB 0 mcg/kg/min TITR MIESHA 0 mls/hr Titration Protocol 5 MCG/KG/MIN Famotidine/Sodium Chloride 20 mg in 50 mls @ 100 mls/hr 01/24/19 10:45 10:42 Pepcid 20 Mg Premixed Ivpb - IVPB 100 mls/hr DAILY MIESHA Administration Amino Acids 1,000 mls @ 42 mls/hr 01/24/19 14:00 01/25/19 14:09 Clinimix - IV 42 mls/hr Q24H MIESHA Administration Lactulose 30 gm 01/24/19 22:00 01/26/19 05:38 Cephulac (Oral Use) GT 30 gm TID MIESHA Administration Multivitamins/Minerals 10 ml 01/24/19 14:00 01/25/19 14:11 Infuvite Adult - IV 10 ml Q24H MIESHA Administration Nystatin 1 applic 01/24/19 14:11 01/26/19 10:42 Mycostatin Cream - TP 1 applic BID MIESHA Administration Thiamine HCl 200 mg 01/22/19 10:00 01/26/19 10:43 Vitamin B1 Injection - IVPB 200 mg DAILY MIESHA Administration ASSESSMENT/PLAN: 38M [facility] pt (etoh detox 01/15/19) PMH HTN, polysubstance abuse(1.5 pints vodka daily, on methadone) admitted to ICU for severe alcohol withdrawal with acute respiratory failure likely 2/2 DT's. Neuro - Acute alcohol withdrawal/Delirium Tremens - sedation vacation - will assess mental status Pulmonary - Acute respiratory failure 2/2 Alcoholic hepatitis induced DT's - attempted to wean off sedation subsequent pt vomited nbnb emesis. - remains intubated and sedated on prop and fentanyl - c/w vent will try to assess mental status before extubation. - beginning a trial of cpap will see how pt tolerates GI - Acute liver failure likely 2/2 alcoholic hepatitis/Hepatic encephalopathy - Doubt this presentation is due to H.E. likely 2/2 alcoholic hepatitis. - downtrending transaminitis - OGT removed, ngt placed and set to suction. - c/w 30 BID lactulose via ng tube - c/w banana bag, IV LR 100 cc/hr, thiamine, folate - GI note appreciated can start reglan briefly 5mg IVPB Q8h if high residuals after trial of enteral feeds. - started on vital 1.2 20cc/hr, will continue to uptitrate 10 cc q4-6hrs as tolerated. - Aspiration precautions, HOB elevation, d/c feeds 30 min prior to moving patient if needed. - Abdominal XR ordered showing no signs of obstruction just some air in colon. Pt able to tolerate feeds through NG now. - monitoring off abx - CT abd pelvis- Interval bibasal consolidation/pneumonia and small bilateral pleural effusion. Hepatomegaly with diffuse fatty infiltration. Over distended gallbladder without gross intraluminal stones or wall thickening. Mild dilatation of the proximal and mid small bowel loops likely on the basis of ileus. Fat contiaining umbillical hernia and b/l inguinal hernias containing fat. Small amount of free fluid in the pelvis, of uncertain etiology. Renal - DAMIAN, likely in setting of Type I (severe) hepatorenal syndrome/cirrhosis - (Cr baseline 1.2), BUN/Cr- 7/0.6 - Urine studies: FeNa- 0.1 % - Ruvalcaba, strict I/O - pt making adequate amount of urine. Heme - Thrombocytopenia - likely 2/2 cirrhosis, resolved. - off heparin ID - likely UTI/R/o other causes of infn - r/o any source of infection. currently very soft temp of 100. - BCx, UCx repeat NGTD - Sputum Cx positive, see report - UA 2+ LE and Nitrites - CXR- showing no acute changes. - rash on back fully better on hydrocortisone cream - groin rash improved - fever-persistent, sputum is polymicrobial - off abx ROBI continue to follow lytes replete PRN NG Tube feeds. PPX - Heparin 5K TID Dispo: Nurse Mandi spoke with [facility] regarding maintenance dose of methadone and it is 120mg daily. Pt supposed to receive 40mg and titrate up 10mg for 3 days until 70 mg and then continue maintenance dose per nurse. Will speak with primary team regarding the dose they would like us to start. Thank you for this consultative opportunity! Visit type - Emergency Visit Emergency Visit: Yes ED Registration Date: 01/16/19 Care time: The patient presented to the Emergency Department on the above date and was hospitalized for further evaluation of their emergent condition. - New Patient This patient is new to me today: No - Critical Care Critical Care patient: Yes Total Critical Care Time (in minutes): 35 Critical Care Statement: The care of this patient involved high complexity decision making to prevent further life threatening deterioration of the patient 's condition and/or to evaluate & treat vital organ system(s) failure or risk of failure. - Discharge Referral Referred to [facility] No
[2019-01-26] MEDS: MULTIVIT INJ. ADULT COMBO WITH VIT K 1 COMBO 10 ML VIAL IV SCH (15:09)
[2019-01-26] MEDS: LORazepam 2 MG/ML SDV VIAL IVPUSH PRN (17:46)
--- NOTE | 2019-01-26 17:56 | PN ---
Physical Exam: SUBJECTIVE: Patient seen and examined. Pt was slightly more awake and off sedation. OBJECTIVE: Vital Signs Period Temp Pulse Resp BP Sys/Phipps Pulse Ox Last 24 Hr 99.1 F-100.6 F 84-120 14-26 113-152/83-107 95-100 GENERAL: The patient is slightly awake and extubated. Scleral icteris present but improved. HEAD: Normal with no signs of trauma. EYES: PERRL, No ptosis. LUNGS: clear to auscultation bilaterally, decreased breath sounds at the bases. HEART: regular rhythm, S1, S2 without murmur, rub or gallop. ABDOMEN: Soft, nontender, distended globose abdomen but much softer compared to prior days EXTREMITIES: 2+ pulses, warm, well-perfused, 2+ edema. fungal rash around genital region Laboratory Results - last 24 hr 01/26/19 01/26/19 05:35 05:35 WBC 12.9 H RBC 3.53 L Hgb 12.3 Hct 35.8 MCV 101.3 H MCH 34.8 H MCHC 34.4 RDW 16.3 H Plt Count 314 MPV 9.8 D Absolute Neuts (auto) 9.0 H Neutrophils % 70.0 Neutrophils % (Manual) 71.4 Band Neutrophils % 3.9 Lymphocytes % 13.1 Lymphocytes % (Manual) 11.7 Monocytes % 9.7 Monocytes % (Manual) 3 L Eosinophils % 3.7 Eosinophils % (Manual) 2.6 Basophils % 3.5 H Basophils % (Manual) 0.0 Myelocytes % (Man) 4 H D Promyelocytes % (Man) 0 Blast Cells % (Manual) 0 Nucleated RBC % 0 Metamyelocytes 3 H D Hypochromia 0 Platelet Estimate Normal Polychromasia 0 Poikilocytosis 0 Anisocytosis 1+ Microcytosis 0 Macrocytosis 1+ Sodium 136 Potassium 3.4 L Chloride 98 Carbon Dioxide 30 Anion Gap 7 L BUN 12.3 Creatinine 0.6 Est GFR (CKD-EPI)AfAm 147.82 Est GFR (CKD-EPI)NonAf 127.55 Random Glucose 110 H Calcium 8.2 L Phosphorus 3.5 Magnesium 1.6 L Total Bilirubin 7.8 H AST 207 H ALT 115 H Alkaline Phosphatase 162 H Total Protein 6.5 Albumin 1.8 L Active Medications Generic Name Dose Route Start Last Admin Trade Name Freq PRN Reason Stop Dose Admin Chlorhexidine Gluconate 1 applic 01/16/19 22:00 01/25/19 21:11 Hibiclens For Decolonization - TP 1 applic HS MIESHA Administration Folic Acid 1 mg 01/17/19 10:00 01/26/19 10:40 Folic Acid - PO 1 mg DAILY MIESHA Administration Furosemide 40 mg 01/25/19 18:00 01/26/19 10:41 Lasix Injection - IVPUSH 40 mg BID MIESHA Administration Propofol 1,000,000 mcg in 100 mls @ 2.722 mls/hr 01/17/19 06:30 01/26/19 11: 30 Diprivan - IVPB 0 mcg/kg/min TITR MIESHA 0 mls/hr Titration Protocol 5 MCG/KG/MIN Famotidine/Sodium Chloride 20 mg in 50 mls @ 100 mls/hr 01/24/19 10:45 10:42 Pepcid 20 Mg Premixed Ivpb - IVPB 100 mls/hr DAILY MIESHA Administration Amino Acids 1,000 mls @ 42 mls/hr 01/24/19 14:00 01/26/19 14:00 Clinimix - IV Not Given Q24H MIESHA Lactulose 30 gm 01/24/19 22:00 01/26/19 14:40 Cephulac (Oral Use) GT 30 gm TID MIESHA Administration Lorazepam 2 mg 01/26/19 17:33 01/26/19 17:46 Ativan Injection - IVPUSH 2 mg Q8H PRN Administration ANXIETY Multivitamins/Minerals 10 ml 01/24/19 14:00 01/26/19 15:09 Infuvite Adult - IV Not Given Q24H MIESHA Nystatin 1 applic 01/24/19 14:11 01/26/19 10:42 Mycostatin Cream - TP 1 applic BID MIESHA Administration Thiamine HCl 200 mg 01/22/19 10:00 01/26/19 10:43 Vitamin B1 Injection - IVPB 200 mg DAILY MIESHA Administration ASSESSMENT/PLAN: 38M [facility] pt (etoh detox 01/15/19) PMH HTN, polysubstance abuse(1.5 pints vodka daily, on methadone) admitted to ICU for severe alcohol withdrawal with DT 's. Delirium Tremens patient off sedation and extubated was sat 100 on non rebreather c/w banana bag thiamine, folate, B12 f/u electrolytes , replete as needed on clinimix Aspiration precautions CT scan Head showed volume loss no acute path Lactulose cont wit intermitten suction off Acute hypoxic resp failure poss due to multiple weaning trials CT abdomen showed bibasilar consolidation and effusion monitor alcoholic hepatitis Hold steroids at this moment as per GI LFTs continues trending down but AST today higher at 207, ALT 115, ALP 162 Albumin 1.8. ammonia level 120 compared to 57 from admission. Low suction currently but will stop for 2 hours to administer lactulose for hyperammonemia. continue lactulose CT scan of abdomen showed hepatomegaly, gallbladder sludge w/o stone or wall thickening. Ileus mild noted Rash most likely fungal in origin topical nystatin cream BID DAMIAN, likely in setting of Type I (severe) hepatorenal syndrome/cirrhosis Cr 0.6 stable Ruvalcaba, strict I/O- pt making adequate amount of urine. No NSAIDs Avoid contrast exposure Recurrent fever afebrile with rectal temp of 99.1 Per ID D/C ertapenem for drug rash concern continue to monitor Polysubstance abuse methadone 50 to be resumed. FEN mg and potassium repleted DVT Hep subQ Visit type - Emergency Visit Emergency Visit: Yes ED Registration Date: 01/16/19 Care time: The patient presented to the Emergency Department on the above date and was hospitalized for further evaluation of their emergent condition. - New Patient This patient is new to me today: No - Critical Care Critical Care patient: Yes Total Critical Care Time (in minutes): 35 Critical Care Statement: The care of this patient involved high complexity decision making to prevent further life threatening deterioration of the patient 's condition and/or to evaluate & treat vital organ system(s) failure or risk of failure. ATTENDING PHYSICIAN STATEMENT I saw and evaluated the patient. I reviewed the resident's note and discussed the case with the resident. I agree with the resident's findings and plan as documented. SUBJECTIVE: OBJECTIVE: ASSESSMENT AND PLAN:
[2019-01-26] MEDS ORDERED: METHADONE HCL 10 MG TABLET (FOR DETOX USE ONLY) PO ONE (18:35)
[2019-01-26] MEDS ORDERED: METHADONE HCL 40 MG DISPERSABLE TABLET PO ONE (18:35)
[2019-01-26 21:31] LABS: ARTERIAL BLD GAS O2 SATURATION 99.6 % (95-98); ARTERIAL BLOOD GAS BASE EXCESS 6.3 meq/l (-2-2); ARTERIAL BLOOD GAS PCO2 48.7 mmHg (35-45); ARTERIAL BLOOD GAS PO2 198 mmHg (80-100); ARTERIAL BLOOD GAS pH 7.43 (7.35-7.45)
[2019-01-26 21:35] LABS: ALLENS TEST POSITIVE
[2019-01-26] MEDS: CHLORHEXIDINE GLUCONATE 4% CLEANSER FOR DECOLONIZATION TP SCH (22:03)
[2019-01-27] MEDS: LORazepam 2 MG/ML SDV VIAL IVPUSH PRN ×2 (00:05→07:48)
[2019-01-27 05:55] LABS: BASO % 2.9 % (0-2.0); EOS % 4.1 % (0-4.5); HEMATOCRIT 35.6 % (35.4-49); LYMPH % 11.9 % (8-40); MCH 34.5 pg (25.7-33.7); MCHC 33.7 g/dl (32.0-35.9); MEAN CELL VOLUME 102.3 fl (80-96); MEAN PLT VOLUME 9.7 fl (7.5-11.1); MONO % 8.6 % (3.8-10.2); NEUT % 72.5 % (42.8-82.8); PLATELET COUNT 298 K/MM3 (134-434); RBC 3.48 M/mm3 (4.00-5.60); RDW 16.1 % (11.9-15.9); WHITE BLOOD COUNT 13.3 K/mm3 (4.0-10.0)
[2019-01-27 06:08] LABS: INR 1.13 (0.83-1.09); PROTHROMBIN TIME (PATIENT) 13.3 SEC (9.7-13.0)
[2019-01-27 06:23] LABS: BILIRUBIN,TOTAL 8.1 mg/dL (0.2-1); BLOOD UREA NITROGEN 14.6 mg/dL (7-18); CALCIUM 8.8 mg/dL (8.5-10.1); CREATININE 0.7 mg/dL (0.55-1.3); POTASSIUM 3.4 mmol/L (3.5-5.1); TOT PROT 6.8 g/dl (6.4-8.2)
[2019-01-27] MEDS: LACTULOSE 20 GM/30 ML UDC (FOR ORAL USE ONLY) GT SCH ×3 (07:10→21:21)
[2019-01-27] MEDS ORDERED: LORazepam 2 MG/ML SDV VIAL IVPUSH PRN ×3 (07:22→11:50)
[2019-01-27] MEDS: KCL 10 MEQ IVPB 10 MEQ/100 ML INFUS.BAG IVPB SCH ×2 (07:35→08:21)
[2019-01-27] MEDS: FAMOTIDINE 20 MG/50 ML IVPB 20 MG/50 ML MG IVPB SCH (09:30)
[2019-01-27] MEDS: FUROSEMIDE 40 MG/4 ML INJECTABLE VIAL IVPUSH SCH ×2 (09:30→21:21)
[2019-01-27] MEDS: FOLIC ACID 1 MG TABLET (FP) PO SCH (09:31)
[2019-01-27] MEDS ORDERED: PT OWN MED DRAWER 7, Y5N ONE (09:32)
[2019-01-27] MEDS: NYSTATIN 100,000 UNIT/GM TOPICAL CREAM 15 GM TUBE TP SCH ×2 (09:33→21:22)
[2019-01-27] MEDS: THIAMINE HCL 200 MG/2 ML VIAL IVPB SCH (09:34)
[2019-01-27] MEDS ORDERED: METHADONE HCL 10 MG/1 ML (20ML VIAL) IM SCH (10:00)
[2019-01-27 10:09] LABS: ANISOCYTOSIS 1+; MACROCYTOSIS 0; PLATELET ESTIMATE NORMAL
[2019-01-27] MEDS ORDERED: METHADONE HCL 10 MG TABLET PO SCH ×3 (10:45)
[2019-01-27] MEDS ORDERED: METHADONE HCL 40 MG DISPERSABLE TABLET ONE (10:51)
[2019-01-27] MEDS ORDERED: METHADONE HCL 10 MG TABLET ONE (10:51)
[2019-01-27] MEDS: METHADONE 40 MG, METHADONE 10 MG PO SCH (10:55)
--- NOTE | 2019-01-27 11:49 | PN ---
Teaching Attending Note Name of Resident: Anthony Mae ATTENDING PHYSICIAN STATEMENT I saw and evaluated the patient. I reviewed the resident's note and discussed the case with the resident. I agree with the resident's findings and plan as documented. SUBJECTIVE: Patient seen and examined in the ICU. Remains extubated. Agitated this AM and was given Benadryl and Ativan around 7: 30AM. Lethargic but arousable. Able to tell me his name and that he is in the hospital. Feeds are off. OBJECTIVE: Intake & Output 01/24/19 01/25/19 01/26/19 01/27/19 23:59 23:59 23:59 23:59 Intake Total 1204 2096 1800 20 Output Total 1850 3350 1100 400 Balance -646 -1254 700 -380 Weight 243 lb 3.2 oz 243 lb 3.2 oz 243 lb 3.2 oz 239 lb 8 oz Last Vital Signs Temp Pulse Resp BP Pulse Ox 98 F 104 H 20 111/96 97 01/27/19 10:00 01/27/19 10:00 01/27/19 10:00 01/27/19 10:00 01/27/19 09:48 Active Medications Chlorhexidine Gluconate (Hibiclens For Decolonization -) 1 applic TP HS MIESHA Last Admin: 01/26/19 22:03 Dose: 1 applic Folic Acid (Folic Acid -) 1 mg PO DAILY MIESHA Last Admin: 01/27/19 09:31 Dose: 1 mg Furosemide (Lasix Injection -) 40 mg IVPUSH BID MIESHA Last Admin: 01/27/19 09:30 Dose: 40 mg Propofol (Diprivan -) 1,000,000 mcg in 100 mls @ 2.722 mls/hr IVPB TITR MIESHA; Protocol Last Titration: 01/26/19 11:30 Dose: 0 mcg/kg/min, 0 mls/hr Famotidine/Sodium Chloride (Pepcid 20 Mg Premixed Ivpb -) 20 mg in 50 mls @ 100 mls/hr IVPB DAILY MIESHA Last Admin: 01/27/19 09:30 Dose: 100 mls/hr Amino Acids (Clinimix -) 1,000 mls @ 42 mls/hr IV Q24H MIESHA Last Admin: 01/26/19 14:00 Dose: Not Given Lactulose (Cephulac (Oral Use)) 30 gm GT TID [facility] Last Admin: 01/27/19 07:10 Dose: 30 gm Lorazepam (Ativan Injection -) 2 mg IVPUSH Q6H PRN PRN Reason: ANXIETY Methadone HCl 40 mg/ Methadone (HCl 10 mg) 50 mg PO DAILY@0600 [facility] Last Admin: 01/27/19 10:55 Dose: 50 mg Multivitamins/Minerals (Infuvite Adult -) 10 ml IV Q24H [facility] Last Admin: 01/26/19 15:09 Dose: Not Given Nystatin (Mycostatin Cream -) 1 applic TP BID [facility] Last Admin: 01/27/19 09:33 Dose: 1 applic Thiamine HCl (Vitamin B1 Injection -) 200 mg IVPB DAILY [facility] Last Admin: 01/27/19 09:34 Dose: 200 mg Gen: Extubated, lethargic but arousable Heart: RRR Lung: decreased breath sounds at the bases Abd: distended, (+) BS, non-tender Ext: + edema Laboratory Results - last 24 hr 01/26/19 01/26/19 01/27/19 05:35 21:24 05:30 WBC 13.3 H RBC 3.48 L Hgb 12.0 Hct 35.6 MCV 102.3 H MCH 34.5 H MCHC 33.7 RDW 16.1 H Plt Count 298 MPV 9.7 Absolute Neuts (auto) 9.7 H Neutrophils % 72.5 Neutrophils % (Manual) 71.4 75.5 Band Neutrophils % 3.9 0.0 Lymphocytes % 11.9 Lymphocytes % (Manual) 11.7 14.3 D Monocytes % 8.6 Monocytes % (Manual) 3 L 2 L Eosinophils % 4.1 Eosinophils % (Manual) 2.6 4.1 Basophils % 2.9 H Basophils % (Manual) 0.0 0.0 Myelocytes % (Man) 4 H D 3 H D Promyelocytes % (Man) 0 0 Blast Cells % (Manual) 0 0 Nucleated RBC % 0 Metamyelocytes 3 H D 1 D Hypochromia 0 0 Platelet Estimate Normal Normal Polychromasia 0 0 Poikilocytosis 0 0 Basophilic Stippling 1+ Anisocytosis 1+ 1+ Microcytosis 0 0 Macrocytosis 1+ 0 Stomatocytes 1+ PT with INR INR Anticoagulation Therapy No Result Required. Puncture Site Left radial ABG pH 7.43 ABG pCO2 at Pt Temp 48.7 H ABG pO2 at Pt Temp 198 H ABG HCO3 31.4 H ABG O2 Sat (Measured) 99.6 H ABG O2 Content 18.3 ABG Base Excess 6.3 H Lawson Test Positive O2 Delivery Device No Result Required. Oxygen Flow Rate No Result Required. Vent Mode No Result Required. Vent Rate No Result Required. Mechanical Rate No Result Required. Pressure Support Vent No Result Required. Sodium Potassium Chloride Carbon Dioxide Anion Gap BUN Creatinine Est GFR (CKD-EPI)AfAm Est GFR (CKD-EPI)NonAf Random Glucose Calcium Total Bilirubin AST ALT Alkaline Phosphatase Total Protein Albumin 01/27/19 01/27/19 05:30 05:30 WBC RBC Hgb Hct MCV MCH MCHC RDW Plt Count MPV Absolute Neuts (auto) Neutrophils % Neutrophils % (Manual) Band Neutrophils % Lymphocytes % Lymphocytes % (Manual) Monocytes % Monocytes % (Manual) Eosinophils % Eosinophils % (Manual) Basophils % Basophils % (Manual) Myelocytes % (Man) Promyelocytes % (Man) Blast Cells % (Manual) Nucleated RBC % Metamyelocytes Hypochromia Platelet Estimate Polychromasia Poikilocytosis Basophilic Stippling Anisocytosis Microcytosis Macrocytosis Stomatocytes PT with INR 13.30 H INR 1.13 H Anticoagulation Therapy Puncture Site ABG pH ABG pCO2 at Pt Temp ABG pO2 at Pt Temp ABG HCO3 ABG O2 Sat (Measured) ABG O2 Content ABG Base Excess Lawson Test O2 Delivery Device Oxygen Flow Rate Vent Mode Vent Rate Mechanical Rate Pressure Support Vent Sodium 140 Potassium 3.4 L Chloride 100 Carbon Dioxide 33 H Anion Gap 8 BUN 14.6 Creatinine 0.7 Est GFR (CKD-EPI)AfAm 138.75 Est GFR (CKD-EPI)NonAf 119.71 Random Glucose 92 Calcium 8.8 Total Bilirubin 8.1 H AST 216 H ALT 130 H Alkaline Phosphatase 158 H Total Protein 6.8 Albumin 2.0 L ASSESSMENT AND PLAN: Acute Respiratory Failure Acute Alcohol Withdrawal/Delerium Tremens Alcoholic Hepatitis Acute Kidney Injury improving Hepatic Encephalopathy Coagulopathy Lactic Acidosis UTI Hyponatremia Methadone Maintenance HTN - Re-start enteral feeds / when mental status improves can trial PO intake - Monitor off antibiotics - replete lytes PRN - monitor urine output, creatinine - continue lactulose - DVT/GI prophylaxis - Methadone daily - Requires continued ICU monitoring for tenuous overall status Dr rFy Critical care time spent in reviewing chart, evaluating patient and formulating plan 35 min
--- NOTE | 2019-01-27 13:09 | PN ---
Physical Exam: SUBJECTIVE: Patient seen and examined in the ICU. Per night team, pt was given benadryl and ativan for tachypnea and agitation, pt satting fine on ventimask. Assessed pt's mental status with a cocoa powder mixer operator after rounds and pt is AO X3. Pt endorsed to taking 120 daily methadone and using 4bags of IV heroin. OBJECTIVE: Vital Signs Period Temp Pulse Resp BP Sys/Phipps Pulse Ox Last 24 Hr 98 F-101.3 F 97-127 20-33 111-154/54-122 97-100 GENERAL: The patient is awake, not in much distress, tough to assess mental status given pts lethargy. However after rounds, pt found to be AO X3. NECK: supple. LUNGS: Breath sounds equal, no wheezing or ronchi present HEART: Regular rate and rhythm, S1, S2 without murmur, rub or gallop. ABDOMEN: distended but slightly less than day before, and nontender. EXTREMITIES: 2+ pulses, warm, well-perfused, no edema. SKIN: Warm, dry, no rashes or lesions noted Laboratory Results - last 24 hr 01/26/19 01/26/19 01/27/19 05:35 21:24 05:30 WBC 13.3 H RBC 3.48 L Hgb 12.0 Hct 35.6 MCV 102.3 H MCH 34.5 H MCHC 33.7 RDW 16.1 H Plt Count 298 MPV 9.7 Absolute Neuts (auto) 9.7 H Neutrophils % 72.5 Neutrophils % (Manual) 71.4 75.5 Band Neutrophils % 3.9 0.0 Lymphocytes % 11.9 Lymphocytes % (Manual) 11.7 14.3 D Monocytes % 8.6 Monocytes % (Manual) 3 L 2 L Eosinophils % 4.1 Eosinophils % (Manual) 2.6 4.1 Basophils % 2.9 H Basophils % (Manual) 0.0 0.0 Myelocytes % (Man) 4 H D 3 H D Promyelocytes % (Man) 0 0 Blast Cells % (Manual) 0 0 Nucleated RBC % 0 Metamyelocytes 3 H D 1 D Hypochromia 0 0 Platelet Estimate Normal Normal Polychromasia 0 0 Poikilocytosis 0 0 Basophilic Stippling 1+ Anisocytosis 1+ 1+ Microcytosis 0 0 Macrocytosis 1+ 0 Stomatocytes 1+ PT with INR INR Anticoagulation Therapy No Result Required. Puncture Site Left radial ABG pH 7.43 ABG pCO2 at Pt Temp 48.7 H ABG pO2 at Pt Temp 198 H ABG HCO3 31.4 H ABG O2 Sat (Measured) 99.6 H ABG O2 Content 18.3 ABG Base Excess 6.3 H Lawson Test Positive O2 Delivery Device No Result Required. Oxygen Flow Rate No Result Required. Vent Mode No Result Required. Vent Rate No Result Required. Mechanical Rate No Result Required. Pressure Support Vent No Result Required. Sodium Potassium Chloride Carbon Dioxide Anion Gap BUN Creatinine Est GFR (CKD-EPI)AfAm Est GFR (CKD-EPI)NonAf Random Glucose Calcium Total Bilirubin AST ALT Alkaline Phosphatase Total Protein Albumin 01/27/19 01/27/19 05:30 05:30 WBC RBC Hgb Hct MCV MCH MCHC RDW Plt Count MPV Absolute Neuts (auto) Neutrophils % Neutrophils % (Manual) Band Neutrophils % Lymphocytes % Lymphocytes % (Manual) Monocytes % Monocytes % (Manual) Eosinophils % Eosinophils % (Manual) Basophils % Basophils % (Manual) Myelocytes % (Man) Promyelocytes % (Man) Blast Cells % (Manual) Nucleated RBC % Metamyelocytes Hypochromia Platelet Estimate Polychromasia Poikilocytosis Basophilic Stippling Anisocytosis Microcytosis Macrocytosis Stomatocytes PT with INR 13.30 H INR 1.13 H Anticoagulation Therapy Puncture Site ABG pH ABG pCO2 at Pt Temp ABG pO2 at Pt Temp ABG HCO3 ABG O2 Sat (Measured) ABG O2 Content ABG Base Excess Lawson Test O2 Delivery Device Oxygen Flow Rate Vent Mode Vent Rate Mechanical Rate Pressure Support Vent Sodium 140 Potassium 3.4 L Chloride 100 Carbon Dioxide 33 H Anion Gap 8 BUN 14.6 Creatinine 0.7 Est GFR (CKD-EPI)AfAm 138.75 Est GFR (CKD-EPI)NonAf 119.71 Random Glucose 92 Calcium 8.8 Total Bilirubin 8.1 H AST 216 H ALT 130 H Alkaline Phosphatase 158 H Total Protein 6.8 Albumin 2.0 L Active Medications Generic Name Dose Route Start Last Admin Trade Name Freq PRN Reason Stop Dose Admin Chlorhexidine Gluconate 1 applic 01/16/19 22:00 01/26/19 22:03 Hibiclens For Decolonization - TP 1 applic HS MIESHA Administration Folic Acid 1 mg 01/17/19 10:00 01/27/19 09:31 Folic Acid - PO 1 mg DAILY MIESHA Administration Furosemide 40 mg 01/25/19 18:00 01/27/19 09:30 Lasix Injection - IVPUSH 40 mg BID MIESHA Administration Propofol 1,000,000 mcg in 100 mls @ 2.722 mls/hr 01/17/19 06:30 01/26/19 11: 30 Diprivan - IVPB 0 mcg/kg/min TITR MIESHA 0 mls/hr Titration Protocol 5 MCG/KG/MIN Famotidine/Sodium Chloride 20 mg in 50 mls @ 100 mls/hr 01/24/19 10:45 09:30 Pepcid 20 Mg Premixed Ivpb - IVPB 100 mls/hr DAILY MIESHA Administration Amino Acids 1,000 mls @ 42 mls/hr 01/24/19 14:00 01/26/19 14:00 Clinimix - IV Not Given Q24H MIESHA Lactulose 30 gm 01/24/19 22:00 01/27/19 07:10 Cephulac (Oral Use) GT 30 gm TID MIESHA Administration Lorazepam 1 mg 01/27/19 11:50 Ativan Injection - IVPUSH Q6H PRN ANXIETY Methadone HCl 40 mg/ Methadone 50 mg 01/27/19 11:00 01/27/19 10:55 HCl 10 mg PO 50 mg DAILY@0600 MIESHA Administration Multivitamins/Minerals 10 ml 01/24/19 14:00 01/26/19 15:09 Infuvite Adult - IV Not Given Q24H MIESHA Nystatin 1 applic 01/24/19 14:11 01/27/19 09:33 Mycostatin Cream - TP 1 applic BID MIESHA Administration Thiamine HCl 200 mg 01/22/19 10:00 01/27/19 09:34 Vitamin B1 Injection - IVPB 200 mg DAILY MIESHA Administration ASSESSMENT/PLAN: 38[address] [facility] pt (etoh detox 01/15/19) PMH HTN, polysubstance abuse(1.5 pints vodka daily, on methadone) admitted to ICU for severe alcohol withdrawal with acute respiratory failure likely 2/2 DT's. Neuro - Acute alcohol withdrawal/Delirium Tremens - sedation vacation - extubated - if pt becomes tachypneic and tachycardic, most likely 2/2 withdrawals from opiates. Better to give methadone 10mg in that event than a benzo. Pulmonary - Acute respiratory failure 2/2 Alcoholic hepatitis induced DT's - extubated on ventimask off sedation - given 50mg PO methadone daily, will discuss further w primary team regarding increasing by 10mg each day as pts confirmed methadone maintenance dose is 120mg. GI - Acute liver failure likely 2/2 alcoholic hepatitis/Hepatic encephalopathy - Doubt this presentation is due to H.E. likely 2/2 alcoholic hepatitis. - downtrending transaminitis - c/w 30 BID lactulose via ng tube - c/w banana bag, IV LR 100 cc/hr, thiamine, folate - Aspiration precautions, HOB elevation - will try to feed him chopped diet - d/c the tube feeds, pt can tolerate PO meds and pending PO food pending Kalpana' s recs. Renal - DAMIAN, likely in setting of Type I (severe) hepatorenal syndrome/cirrhosis - (Cr baseline 1.2), BUN/Cr- 7/0.6 - Urine studies: FeNa- 0.1 % - Ruvalcaba, strict I/O - pt making adequate amount of urine. Heme - Thrombocytopenia - likely 2/2 cirrhosis, resolved. - off heparin ID - likely UTI/R/o other causes of infn - Sputum Cx positive - UA 2+ LE and Nitrites - CXR- showing no acute changes. - rash on back fully better on hydrocortisone cream - groin rash improved - fever-persistent, sputum is polymicrobial - off abx FENGI continue to follow lytes replete PRN off tube feeds - chopped diet PPX - Heparin 5K TID Dispo: We will continue to monitor the patient. Thank you for this consultative opportunity! Visit type - Emergency Visit Emergency Visit: Yes ED Registration Date: 01/16/19 Care time: The patient presented to the Emergency Department on the above date and was hospitalized for further evaluation of their emergent condition. - New Patient This patient is new to me today: No - Critical Care Critical Care patient: Yes Total Critical Care Time (in minutes): 40 Critical Care Statement: The care of this patient involved high complexity decision making to prevent further life threatening deterioration of the patient 's condition and/or to evaluate & treat vital organ system(s) failure or risk of failure. - Discharge Referral Referred to [facility] No
--- NOTE | 2019-01-27 13:31 | CONSULT ---
Admitting History and Physical - Primary Care Physician PCP: Anthony Mae - Admission History of Present Illness: 38yo M with HTN, alcoholism, past opiate abuse on methadone, who presented to [facility] for detox, was noted to have high ammonia, found to have alcoholic hepatitis. Required intubation; extubated yesterday. NGT placed 01/26 with plan to start enteral feeds and d/c clinimix. Pt has been NPO for 10 days. -acute respiratory failure, acute alcohol withdrawal/delerium, alcoholic hepatitis. PNA, ileus, hepatomegaly.. LFTs -downtrending. 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 (EtOH withdrawal seizures in past per chart) Cardiovascular: Yes: HTN Infectious Disease: Yes: Other (PPD + per the chart) Psych: Yes: Addictions (alcoholic) - Past Surgical History Past Surgical History: Yes: None (none known) - Smoking History Smoking history: Current every day smoker Have you smoked in the past 12 months: Yes - Alcohol/Substance Use Hx Alcohol Use: Yes (1-2 pints vodka/day - recently up to 2L/day) History of Substance Use: reports: Heroin (in past - on methadone) - Social History ADL: Independent History - Admission Reason For Visit: HYPERAMMONEMIA ACUTE LIVER FAILURE HEPATIC ENCEPHA - Diagnostics X-ray: Report Reviewed CT Scan: Report Reviewed - General Mental Status: Alert and Oriented, Awake and Alert, Able to Follow Commands, Flat Affect Attention: Distractible, Mild Impairment Ability to Follow Directions: Fair Head/Neck Control: Good - Hearing Hearing: Functional Speech Evaluation - Communication Primary Language: GREENLAND[place] Communication: Yes: Within Normal Limits Oral Expression Ability: Yes: No Impairment - Speech Production Able to Make Needs Known: Yes: WNL Intelligibility: Yes: WNL - Speech Characteristics Voice Loudness: Normal Voice Pitch: Yes: Normal Voice Phonatory-based Quality: Yes: Normal Speech Pattern: Normal Speech Clarity: < 100% Nasal Resonance: Normal Articulation: Yes: Precise Rate of Speech: Intact - Language/Auditory Comprehension Follows: Yes: 1 Stage Simple Commands Observation: Able to respond to yes/no queries: Yes, Yes/No Confusion: No, Comprehends Conversational Speech: Yes - Language/Verbal Expression Able to Respond to Simple Queries: Yes: WNL - Swallow Evaluation/Bedside Assessment Current Nutritional Intake: NPO, Other (Has received water/meds po from nursing with fair tolerance) Oral Secretions: Yes: WFL Dentition: Yes: Missing Teeth Facial Symmetry at Rest: Symmetrical Facial Symmetry on Retraction: Symmetrical Pucker Lips: Normal, Weak Smile: Normal, Weak Lingual Movement: Symmetric Lingual Speed of Movement: Normal Lingual Movement Strgth Against Opposition: Reduced Lingual Movement Characteristics: Normal Velopharyngeal Movement: Normal Laryngeal Movement: Labored,delay initiation Rate of Intake: WFL Labial Seal: WFL Oral Prep Time: WFL A-P Transit: WFL Coughing/Throat Clear: No (3 oz water (-)) Change in Voice: No Recommendations - Speech Evaluation, Impression/Plan Impression: Extubated. Euphonic voice. Grossly oriented. Flat affect. Doesn't initiate speech but responds with simple responses. (-) 3 oz water test. Swallow delayed but brisk. - Dysphagia Impressions/Plan Dysphagia Impressions: Mild Impairment, Risk of Aspiration *Silent aspiration: cannot be R/O at bedside Dysphagia Treatment Plan: Chin Tuck/Down, Clear Pocket Food, Safe Rate, Elevate HOB during feed Recommendations: Modified Barium Swallow (if cough, congestion ,fever noted) - Recommendations Diet Consistency: Other (Chopped, reg,) Liquids: Thin Liquids
--- NOTE | 2019-01-27 15:14 | PN ---
Physical Exam: SUBJECTIVE: Patient seen and examined. Pt is awake, alert but oriented x3. did not express any complaints. OBJECTIVE: Vital Signs Period Temp Pulse Resp BP Sys/Phipps Pulse Ox Last 24 Hr 98 F-101.3 F 97-127 16-33 111-154/54-122 97-100 GENERAL: The patient is awake, alert, and oriented x3, in no apparent distress. Eyes: sleral icturis improved, PERRLA LUNGS: Breath sounds equal, no wheezing or ronchi present HEART: Regular rate and rhythm, S1, S2 without murmur, rub or gallop. ABDOMEN: distended but slightly less than day before, and nontender. EXTREMITIES: 2+ pulses, warm, well-perfused, no edema. SKIN: Warm, dry, fungal rashes improved Laboratory Results - last 24 hr 01/26/19 01/27/19 01/27/19 21:24 05:30 05:30 WBC 13.3 H RBC 3.48 L Hgb 12.0 Hct 35.6 MCV 102.3 H MCH 34.5 H MCHC 33.7 RDW 16.1 H Plt Count 298 MPV 9.7 Absolute Neuts (auto) 9.7 H Neutrophils % 72.5 Neutrophils % (Manual) 75.5 Band Neutrophils % 0.0 Lymphocytes % 11.9 Lymphocytes % (Manual) 14.3 D Monocytes % 8.6 Monocytes % (Manual) 2 L Eosinophils % 4.1 Eosinophils % (Manual) 4.1 Basophils % 2.9 H Basophils % (Manual) 0.0 Myelocytes % (Man) 3 H D Promyelocytes % (Man) 0 Blast Cells % (Manual) 0 Nucleated RBC % 0 Metamyelocytes 1 D Hypochromia 0 Platelet Estimate Normal Polychromasia 0 Poikilocytosis 0 Basophilic Stippling 1+ Anisocytosis 1+ Microcytosis 0 Macrocytosis 0 Stomatocytes 1+ PT with INR INR Anticoagulation Therapy No Result Required. Puncture Site Left radial ABG pH 7.43 ABG pCO2 at Pt Temp 48.7 H ABG pO2 at Pt Temp 198 H ABG HCO3 31.4 H ABG O2 Sat (Measured) 99.6 H ABG O2 Content 18.3 ABG Base Excess 6.3 H Lawson Test Positive O2 Delivery Device No Result Required. Oxygen Flow Rate No Result Required. Vent Mode No Result Required. Vent Rate No Result Required. Mechanical Rate No Result Required. Pressure Support Vent No Result Required. Sodium 140 Potassium 3.4 L Chloride 100 Carbon Dioxide 33 H Anion Gap 8 BUN 14.6 Creatinine 0.7 Est GFR (CKD-EPI)AfAm 138.75 Est GFR (CKD-EPI)NonAf 119.71 Random Glucose 92 Calcium 8.8 Total Bilirubin 8.1 H AST 216 H ALT 130 H Alkaline Phosphatase 158 H Total Protein 6.8 Albumin 2.0 L 01/27/19 05:30 WBC RBC Hgb Hct MCV MCH MCHC RDW Plt Count MPV Absolute Neuts (auto) Neutrophils % Neutrophils % (Manual) Band Neutrophils % Lymphocytes % Lymphocytes % (Manual) Monocytes % Monocytes % (Manual) Eosinophils % Eosinophils % (Manual) Basophils % Basophils % (Manual) Myelocytes % (Man) Promyelocytes % (Man) Blast Cells % (Manual) Nucleated RBC % Metamyelocytes Hypochromia Platelet Estimate Polychromasia Poikilocytosis Basophilic Stippling Anisocytosis Microcytosis Macrocytosis Stomatocytes PT with INR 13.30 H INR 1.13 H Anticoagulation Therapy Puncture Site ABG pH ABG pCO2 at Pt Temp ABG pO2 at Pt Temp ABG HCO3 ABG O2 Sat (Measured) ABG O2 Content ABG Base Excess Lawson Test O2 Delivery Device Oxygen Flow Rate Vent Mode Vent Rate Mechanical Rate Pressure Support Vent Sodium Potassium Chloride Carbon Dioxide Anion Gap BUN Creatinine Est GFR (CKD-EPI)AfAm Est GFR (CKD-EPI)NonAf Random Glucose Calcium Total Bilirubin AST ALT Alkaline Phosphatase Total Protein Albumin Active Medications Generic Name Dose Route Start Last Admin Trade Name Freq PRN Reason Stop Dose Admin Chlorhexidine Gluconate 1 applic 01/16/19 22:00 01/26/19 22:03 Hibiclens For Decolonization - TP 1 applic HS MIESHA Administration Folic Acid 1 mg 01/17/19 10:00 01/27/19 09:31 Folic Acid - PO 1 mg DAILY MIESHA Administration Furosemide 40 mg 01/25/19 18:00 01/27/19 09:30 Lasix Injection - IVPUSH 40 mg BID MIESHA Administration Propofol 1,000,000 mcg in 100 mls @ 2.722 mls/hr 01/17/19 06:30 01/26/19 11: 30 Diprivan - IVPB 0 mcg/kg/min TITR MIESHA 0 mls/hr Titration Protocol 5 MCG/KG/MIN Famotidine/Sodium Chloride 20 mg in 50 mls @ 100 mls/hr 01/24/19 10:45 09:30 Pepcid 20 Mg Premixed Ivpb - IVPB 100 mls/hr DAILY MIESHA Administration Lactulose 30 gm 01/24/19 22:00 01/27/19 13:59 Cephulac (Oral Use) GT 30 gm TID MIESAH Administration Lorazepam 1 mg 01/27/19 11:50 Ativan Injection - IVPUSH Q6H PRN ANXIETY Methadone HCl 40 mg/ Methadone 50 mg 01/27/19 11:00 01/27/19 10:55 HCl 10 mg PO 50 mg DAILY@0600 MIESHA Administration Nystatin 1 applic 01/24/19 14:11 01/27/19 09:33 Mycostatin Cream - TP 1 applic BID MIESHA Administration Thiamine HCl 200 mg 01/22/19 10:00 01/27/19 09:34 Vitamin B1 Injection - IVPB 200 mg DAILY MIESHA Administration ASSESSMENT/PLAN: 38[address] [facility] pt (etoh detox 01/15/19) PMH HTN, polysubstance abuse(1.5 pints vodka daily, on methadone) admitted to ICU for severe alcohol withdrawal with DT 's. Delirium Tremens Pt AAOx3 patient off sedation and extubated was sat 100 on non rebreather c/w banana bag thiamine, folate, B12 f/u electrolytes , replete as needed Aspiration precautions on Ativan 2mg Q8H, 1 mg Q6h cont lactulose Once patient more awake will attempt PO intake per Kalpana recommendations Acute hypoxic resp failure improved ABG today pH 7.43, CO2 48.7, O2 198, HCO3 31.4 monitor alcoholic hepatitis LFTs stable around the similar values but AST today higher at 216, ALT 130, ALP 158 Albumin 2. continue lactulose, Rifaximin 550 BID added by GI monitor Rash minimal redness present as of today continuing topical nystatin cream BID DAMIAN, likely in setting of Type I (severe) hepatorenal syndrome/cirrhosis Cr 0.6 stable Ruvalcaba, strict I/O- pt making adequate amount of urine. No NSAIDs Avoid contrast exposure Recurrent fever afebrile with most recent temp at 98.9 Per ID D/C ertapenem for drug rash concern continue to monitor Polysubstance abuse methadone 50 resumed for now FEN Dysphagia diet minced recommended per Kalpana thin liquid DVT Hep subQ Visit type - Emergency Visit Emergency Visit: Yes ED Registration Date: 01/16/19 Care time: The patient presented to the Emergency Department on the above date and was hospitalized for further evaluation of their emergent condition. - New Patient This patient is new to me today: No - Critical Care Critical Care patient: Yes Total Critical Care Time (in minutes): 35 Critical Care Statement: The care of this patient involved high complexity decision making to prevent further life threatening deterioration of the patient 's condition and/or to evaluate & treat vital organ system(s) failure or risk of failure. ATTENDING PHYSICIAN STATEMENT I saw and evaluated the patient. I reviewed the resident's note and discussed the case with the resident. I agree with the resident's findings and plan as documented. SUBJECTIVE: OBJECTIVE: ASSESSMENT AND PLAN:
--- NOTE | 2019-01-27 16:05 | PN.GI ---
GI Progress Note Subjective: No acute events Extubated He pulled out NGT Responding to questions and verbal commands - Objective Vital Signs: Vital Signs Temperature 98.8 F 01/27/19 14:00 Pulse Rate 108 H 01/27/19 14:00 Respiratory Rate 16 01/27/19 14:00 Blood Pressure 125/84 01/27/19 14:00 O2 Sat by Pulse Oximetry (%) 97 01/27/19 09:48 Constitutional: Calm Eyes: Yes: Sclera Icterus Cardiovascular: Yes: Tachycardia Respiratory: Yes: Diminished (at bases bilaterally with poor insp effort) ...Auscultate: Yes: Normoactive Bowel Sounds ...Palpate: No: Tenderness Labs: CBC, BMP 01/27/19 05:30 01/27/19 05:30 INR, PTT INR 1.13 (0.83-1.09) H 01/27/19 05:30 Hepatic Panel Total Bilirubin 8.1 mg/dL (0.2-1) H 01/27/19 05:30 Direct Bilirubin 10.5 mg/dL (0.0-0.2) H 01/20/19 05:45 AST 216 U/L (15-37) H 01/27/19 05:30 ALT 130 U/L (13-61) H 01/27/19 05:30 Alkaline Phosphatase 158 U/L (45-117) H 01/27/19 05:30 Albumin 2.0 g/dl (3.4-5.0) L 01/27/19 05:30 Laboratory Tests 01/25/19 07:48 Ammonia 65.60 H Problem List - Problems (1) Alcoholic hepatitis Assessment/Plan: Liver chemistries improving supportive measures avoid hepatotoxic agents Code(s): K70.10 - ALCOHOLIC HEPATITIS WITHOUT ASCITES Qualifiers: Ascites presence: without ascites Qualified Code(s): K70.10 - Alcoholic hepatitis without ascites (2) Alcohol withdrawal delirium Assessment/Plan: Being treated per primary team Likely with component of hepatic encephalopathy. On Lactulose 30g TID, added rifaximin 550mg PO BID Code(s): F10.231 - ALCOHOL DEPENDENCE WITH WITHDRAWAL DELIRIUM
--- NOTE | 2019-01-27 16:39 | PN ---
Teaching Attending Note Name of Resident: Yennifer Terrell ATTENDING PHYSICIAN STATEMENT I saw and evaluated the patient. I reviewed the resident's note and discussed the case with the resident. I agree with the resident's findings and plan as documented. SUBJECTIVE: No pain, minimal interaction OBJECTIVE: Awake, answers some questions . R pupil is still slightly bigger than L . reactive to light CV: RRR, no MRG. Lungs: CTAB anteriorly. Abd: distended Nl BS , tympanic, soft Ext : upper ext edema improved. lower extremity edema improved fading rash in groins ASSESSMENT AND PLAN: 38 y/o man with h/o alcohol abuse, h/o opioid use with methadone maintenance who presented with form [facility] with Dts. 1- DTs. 2- hepatic encephalopathy 3- Acute alcoholic hepatitis 4- Fever 5- drug rash vs fungal rash 6-Ileus 7- Acute resp failure 8- Peripheral edema 10 -leukocytosis plan: - s/p extubation . cont Non rebreather. transition to DE when able to - cont lactulose - cont to monitor off Abx. no more fevers - pulled his NG. monitor abd exam - swallow eval . Barium swallow - Monitor LFTS - cont nystatin to groin areas - [facility] notes reviewed. patient was started on methadone to titrate up to reach his 120 mg goal dose. last dose given in [facility] 60 mg. cont 50 mg for now and will ask Dr. Youngblood to help with tiration . - cont ativan PRN for agitation - add heparin sq
[2019-01-27] MEDS: RIFAXIMIN 550 MG TABLET (UD) PO SCH ×2 (21:00→21:22)
[2019-01-27] MEDS: HEPARIN NA (PORCINE) 5,000 UNITS/ML 1ML VIAL SQ SCH (21:22)
[2019-01-27] MEDS: CHLORHEXIDINE GLUCONATE 4% CLEANSER FOR DECOLONIZATION TP SCH (21:22)
[2019-01-28] MEDS: FUROSEMIDE 40 MG/4 ML INJECTABLE VIAL IVPUSH SCH ×2 (05:44→13:12)
[2019-01-28] MEDS: HEPARIN NA (PORCINE) 5,000 UNITS/ML 1ML VIAL SQ SCH ×3 (05:44→21:34)
[2019-01-28] MEDS: LACTULOSE 20 GM/30 ML UDC (FOR ORAL USE ONLY) GT SCH (05:44)
[2019-01-28] MEDS ORDERED: METHADONE HCL 40 MG DISPERSABLE TABLET ONE (05:59)
[2019-01-28] MEDS ORDERED: METHADONE HCL 10 MG TABLET ONE (05:59)
[2019-01-28] MEDS: METHADONE 40 MG, METHADONE 10 MG PO SCH (06:00)
[2019-01-28] MEDS: LACTULOSE 20 GM/30 ML UDC (FOR ORAL USE ONLY) PO SCH ×3 (06:01→21:35)
[2019-01-28 06:07] LABS: EOS % 5.7 % (0-4.5); HEMATOCRIT 34.6 % (35.4-49); HEMOGLOBIN 11.6 GM/dL (11.7-16.9); MCH 34.7 pg (25.7-33.7); MCHC 33.7 g/dl (32.0-35.9); MEAN CELL VOLUME 103.1 fl (80-96); MEAN PLT VOLUME 9.9 fl (7.5-11.1); MONO % 8.7 % (3.8-10.2); NEUT % 65.6 % (42.8-82.8); PLATELET COUNT 296 K/MM3 (134-434); RBC 3.35 M/mm3 (4.00-5.60); RDW 15.8 % (11.9-15.9); WHITE BLOOD COUNT 13.2 K/mm3 (4.0-10.0)
[2019-01-28 06:26] LABS: ALBUMIN 2.1 g/dl (3.4-5.0); BILIRUBIN,TOTAL 8.3 mg/dL (0.2-1); BLOOD UREA NITROGEN 15.4 mg/dL (7-18); CALCIUM 8.7 mg/dL (8.5-10.1); CREATININE 0.7 mg/dL (0.55-1.3); MAGNESIUM 1.7 mg/dL (1.8-2.4); POTASSIUM 3.5 mmol/L (3.5-5.1); TOT PROT 7.3 g/dl (6.4-8.2)
--- NOTE | 2019-01-28 09:00 | PN ---
Teaching Attending Note Name of Resident: Yennifer Terrell ATTENDING PHYSICIAN STATEMENT I saw and evaluated the patient. I reviewed the resident's note and discussed the case with the resident. I agree with the resident's findings and plan as documented. SUBJECTIVE: Patient is lying in bed comfortably. in ICU . Abdomen is distended but soft. OBJECTIVE: Vital Signs Temperature 98.7 F 01/28/19 06:00 Pulse Rate 105 H 01/28/19 06:00 Respiratory Rate 22 H 01/28/19 06:00 Blood Pressure 119/86 01/28/19 06:00 O2 Sat by Pulse Oximetry (%) 99 01/27/19 21:00 GENERAL: The patient is awake, alert, and fully oriented, in no acute distress. HEAD: Normal with no signs of trauma. EYES: PERRL, extraocular movements intact, sclera icteric, conjunctiva yellow. ENT: Ears normal, oropharynx clear without exudates, moist mucous membranes. NECK: Trachea midline, full range of motion, supple. LUNGS: Breath sounds equal, clear to auscultation bilaterally, no wheezes, no crackles, no accessory muscle use. HEART: Regular rate and rhythm, S1, S2 without murmur, rub or gallop. ABDOMEN: Soft, NT,mild distention, +BS, no guarding, no rebound, positive for hepatomegaly , no masses appreciated. EXTREMITIES: 2+ pulses, warm, well-perfused, no edema. NEUROLOGICAL: Cranial nerves II through XII grossly intact. Normal speech, gait not observed. PSYCH: Normal mood, normal affect. SKIN: Warm, dry, normal turgor, no rashes or lesions noted CBCD WBC 13.2 K/mm3 (4.0-10.0) H 01/28/19 05:35 RBC 3.35 M/mm3 (4.00-5.60) L 01/28/19 05:35 Hgb 11.6 GM/dL (11.7-16.9) L 01/28/19 05:35 Hct 34.6 % (35.4-49) L 01/28/19 05:35 MCV 103.1 fl (80-96) H 01/28/19 05:35 MCHC 33.7 g/dl (32.0-35.9) 01/28/19 05:35 RDW 15.8 % (11.9-15.9) 01/28/19 05:35 Plt Count 296 K/MM3 (134-434) 01/28/19 05:35 MPV 9.9 fl (7.5-11.1) 01/28/19 05:35 CMP Sodium 135 mmol/L (136-145) L 01/28/19 05:35 Potassium 3.5 mmol/L (3.5-5.1) 01/28/19 05:35 Chloride 97 mmol/L (98-107) L 01/28/19 05:35 Carbon Dioxide 31 mmol/L (21-32) 01/28/19 05:35 Anion Gap 8 MMOL/L (8-16) 01/28/19 05:35 BUN 15.4 mg/dL (7-18) 01/28/19 05:35 Creatinine 0.7 mg/dL (0.55-1.3) 01/28/19 05:35 Random Glucose 91 mg/dL (74-106) 01/28/19 05:35 Calcium 8.7 mg/dL (8.5-10.1) 01/28/19 05:35 Total Bilirubin 8.3 mg/dL (0.2-1) H 01/28/19 05:35 AST 240 U/L (15-37) H 01/28/19 05:35 ALT 157 U/L (13-61) H 01/28/19 05:35 Alkaline Phosphatase 158 U/L (45-117) H 01/28/19 05:35 Total Protein 7.3 g/dl (6.4-8.2) 01/28/19 05:35 Albumin 2.1 g/dl (3.4-5.0) L 01/28/19 05:35 CARDIAC ENZYMES Creatine Kinase 301 U/L (26-308) 01/18/19 06:00 Troponin I < 0.02 ng/ml (0.00-0.05) 01/16/19 14:19 Current Medications Generic Name Dose Route Start Last Admin Trade Name Freq PRN Reason Stop Dose Admin Chlorhexidine Gluconate 1 applic 01/16/19 22:00 01/27/19 21:22 Hibiclens For Decolonization - TP 1 applic HS MIESHA Administration Folic Acid 1 mg 01/17/19 10:00 01/27/19 09:31 Folic Acid - PO 1 mg DAILY MIESHA Administration Furosemide 40 mg 01/28/19 06:00 01/28/19 05:44 Lasix Injection - IVPUSH 40 mg 0600,1400 MIESHA Administration Heparin Sodium (Porcine) 5,000 unit 01/27/19 22:00 01/28/19 05:44 Heparin - SQ 5,000 unit TID MIESHA Administration Famotidine/Sodium Chloride 20 mg in 50 mls @ 100 mls/hr 01/24/19 10:45 09:30 Pepcid 20 Mg Premixed Ivpb - IVPB 100 mls/hr DAILY MIESHA Administration Lactulose 30 gm 01/28/19 05:45 01/28/19 06:01 Cephulac (Oral Use) PO Not Given TID MIESHA Lorazepam 1 mg 01/27/19 11:50 Ativan Injection - IVPUSH Q6H PRN ANXIETY Methadone HCl 40 mg/ Methadone 50 mg 01/27/19 11:00 01/28/19 06:00 HCl 10 mg PO 50 mg DAILY@0600 MIESHA Administration Nystatin 1 applic 01/24/19 14:11 01/27/19 21:22 Mycostatin Cream - TP 1 applic BID MIESHA Administration Rifaximin 550 mg 01/27/19 22:00 01/27/19 21:00 Xifaxan - PO Not Given BID MIESHA Thiamine HCl 200 mg 01/22/19 10:00 01/27/19 09:34 Vitamin B1 Injection - IVPB 200 mg DAILY MIESHA Administration Home Medications Medication Instructions Recorded Methadone [Dolophine -] 120 mg PO DAILY 07/20/18 Amlodipine Besylate [Norvasc -] 10 mg PO DAILY #30 tablet 09/07/18 Methadone [Dolophine -] 120 mg PO DAILY 01/14/19 NK [No Known Home Medication] 01/14/19 ASSESSMENT AND PLAN: Patient is a 38yo man with h/o alcohol abuse, h/o opioid use with methadone maintenance who presented from [facility] with Dts. # s/p Intubation on sedation: due to DTs /active alcohol withdrawel :sedated on propofol, lorazepam drip continue #s/p Acute Alcohol withdrawals/Delerium Tremors continue:continue thiamine IV, folate continue #Acute on Chronic Liver disease with Alcoholic hepatitis: bili is trending down 8 now. # Hepatic encephalopathy #DAMIAN improved # Hyperbilirubinemia # acute transaminits # DTs. # hepatic encephalopathy # Acute alcoholic hepatitis # Fever # drug rash vs fungal rash # Ileus # -leukocytosis - s/p extubation . cont on 2 liter NC - lactulose - cont to monitor off Abx. no more fevers - pulled his NG. abdomen is distended but having BMs , on lactulose will dc if recommended by GI continue to Monitor LFTS - cont nystatin to groin areas - [facility] reviewed. patient was started on methadone to titrate up to reach his 120 mg goal dose but since has ileus will not increase the dose of methadone 60mg. cont 50 mg for now and will ask Dr. Youngblood to help with tiration . - cont ativan PRN for agitation - add heparin sq
--- NOTE | 2019-01-28 09:42 | PN ---
Progress Note (short form) - Note Progress Note: afebrile off the vent alert conversant wants to go to rehab Vital Signs Period Temp Pulse Resp BP Sys/Phipps Pulse Ox Last 24 Hr 98 F-98.9 F 93-108 16-28 108-131/64-96 96-99 icteric cor-rrr lungs decreased bs at bases abd firm, protuberant, NT ext no edema no rash CBC, BMP 01/28/19 05:35 01/28/19 05:35 Microbiology 01/19/19 09:25 Blood - Peripheral Venous Blood Culture - Final NO GROWTH AFTER 5 DAYS INCUBATION 01/19/19 09:30 Blood - Peripheral Venous Blood Culture - Final NO GROWTH AFTER 5 DAYS INCUBATION 01/19/19 18:00 Sputum - Endotrachea Suction/Ventilator Gram Stain - Final 01/19/19 18:00 Sputum - Endotrachea Suction/Ventilator Sputum Culture - Final Klebsiella Pneumoniae - Esbl Proteus Mirabilis Staphylococcus Aureus Strep Agalactiae Group B 01/17/19 06:38 Blood - Peripheral Venous Blood Culture - Final NO GROWTH AFTER 5 DAYS INCUBATION 01/17/19 06:38 Blood - Peripheral Venous Blood Culture - Final NO GROWTH AFTER 5 DAYS INCUBATION 01/19/19 13:45 Urine - Urine Ruvalcaba Urine Culture - Final NO GROWTH OBTAINED 01/17/19 02:30 Sputum - Endotrachea Suction/Ventilator Gram Stain - Final 01/17/19 02:30 Sputum - Endotrachea Suction/Ventilator Sputum Culture - Final Strep Agalactiae Group B 01/16/19 21:50 Urine - Urine Clean Catch Urine Culture - Final NO GROWTH OBTAINED a/p fevers resolved alcohol withdrawal etoh hepatitis- LFTS improving acute respiratory failure-extubated gretchen- resolved continue to observe off antiibotics please call back if needed Problem List - Problems (1) Fever Code(s): R50.9 - FEVER, UNSPECIFIED Qualifiers: Fever type: due to other condition Qualified Code(s): R50.81 - Fever presenting with conditions classified elsewhere (2) Alcohol withdrawal Code(s): F10.239 - ALCOHOL DEPENDENCE WITH WITHDRAWAL, UNSPECIFIED (3) Alcoholic hepatitis Code(s): K70.10 - ALCOHOLIC HEPATITIS WITHOUT ASCITES Qualifiers: Ascites presence: without ascites Qualified Code(s): K70.10 - Alcoholic hepatitis without ascites (4) Acute respiratory failure Code(s): J96.00 - ACUTE RESPIRATORY FAILURE, UNSP W HYPOXIA OR HYPERCAPNIA Qualifiers: Respiratory failure complication: unspecified whether with hypoxia or hypercapnia Qualified Code(s): J96.00 - Acute respiratory failure, unspecified whether with hypoxia or hypercapnia
[2019-01-28] MEDS ORDERED: PT OWN MED DRAWER 7, Y5N ONE (09:45)
[2019-01-28] MEDS: THIAMINE HCL 200 MG/2 ML VIAL IVPB SCH (09:46)
[2019-01-28] MEDS: FAMOTIDINE 20 MG/50 ML IVPB 20 MG/50 ML MG IVPB SCH (09:46)
[2019-01-28] MEDS: FOLIC ACID 1 MG TABLET (FP) PO SCH (09:47)
[2019-01-28] MEDS: NYSTATIN 100,000 UNIT/GM TOPICAL CREAM 15 GM TUBE TP SCH ×2 (09:47→21:37)
[2019-01-28] MEDS: RIFAXIMIN 550 MG TABLET (UD) PO SCH ×2 (09:47→21:34)
[2019-01-28] MEDS ORDERED: METHADONE HCL 10 MG TABLET (FOR DETOX USE ONLY) PO SCH (10:00)
[2019-01-28 11:25] LABS: ANISOCYTOSIS 1+; MACROCYTOSIS 1+; PLATELET ESTIMATE NORMAL
--- NOTE | 2019-01-28 12:35 | PN ---
Progress Note, APPLIANCE FIXER - Note Progress Note: Selected Entries 01/28/19 01/28/19 01/28/19 06:00 09:42 10:00 Breakfast 75% 75% Temperature 98.7 F 99.3 F Laboratory Tests 01/26/19 01/27/19 01/28/19 05:35 05:30 05:35 WBC 12.9 H 13.3 H 13.2 H Limited PO acceptance this am. No coughing or difficulty observed by staff. CXR pending. If (+), MBS Continue trial of chopped/careful sips of thin for now.
--- NOTE | 2019-01-28 12:59 | PN ---
Teaching Attending Note Name of Resident: Anthony Mae ATTENDING PHYSICIAN STATEMENT I saw and evaluated the patient. I reviewed the resident's note and discussed the case with the resident. I agree with the resident's findings and plan as documented. SUBJECTIVE: Pt seen and examined in the ICU. Remains extubated. No specific complaints. Tolerating PO. +BM. OBJECTIVE: Vital Signs Period Temp Pulse Resp BP Sys/Phipps Pulse Ox Last 24 Hr 98.7 F-99.3 F 93-108 16-24 105-133/64-98 96-99 Intake & Output 01/25/19 01/26/19 01/27/19 01/28/19 23:59 23:59 23:59 23:59 Intake Total 2096 1800 1110 140 Output Total 3350 1100 1500 400 Balance -1254 700 -390 -260 Weight 110.314 kg 110.314 kg 108.635 kg 108.862 kg Gen: NAD, jaundiced Heart: RRR Lung: decreased breath sounds at the bases Abd: softly distended, nontender Ext: no edema CBC, BMP 01/28/19 05:35 01/28/19 05:35 Active Medications Chlorhexidine Gluconate (Hibiclens For Decolonization -) 1 applic TP HS [facility] Last Admin: 01/27/19 21:22 Dose: 1 applic Folic Acid (Folic Acid -) 1 mg PO DAILY [facility] Last Admin: 01/28/19 09:47 Dose: 1 mg Furosemide (Lasix Injection -) 40 mg IVPUSH 0600,1400 [facility] Last Admin: 01/28/19 05:44 Dose: 40 mg Heparin Sodium (Porcine) (Heparin -) 5,000 unit SQ TID [facility] Last Admin: 01/28/19 05:44 Dose: 5,000 unit Famotidine/Sodium Chloride (Pepcid 20 Mg Premixed Ivpb -) 20 mg in 50 mls @ 100 mls/hr IVPB DAILY [facility] Last Admin: 01/28/19 09:46 Dose: 100 mls/hr Lactulose (Cephulac (Oral Use)) 30 gm PO TID [facility] Last Admin: 01/28/19 06:01 Dose: Not Given Lorazepam (Ativan Injection -) 1 mg IVPUSH Q6H PRN PRN Reason: ANXIETY Methadone HCl 40 mg/ Methadone (HCl 20 mg) 60 mg PO DAILY@0600 [facility] Nystatin (Mycostatin Cream -) 1 applic TP BID [facility] Last Admin: 01/28/19 09:47 Dose: 1 applic Rifaximin (Xifaxan -) 550 mg PO BID [facility] Last Admin: 01/28/19 09:47 Dose: 550 mg Thiamine HCl (Vitamin B1 Injection -) 200 mg IVPB DAILY [facility] Last Admin: 01/28/19 09:46 Dose: 200 mg ASSESSMENT AND PLAN: s/p Acute Respiratory Failure Acute Alcohol Withdrawal/Delerium Tremens Alcoholic Hepatitis Acute Kidney Injury improving Hepatic Encephalopathy Coagulopathy Lactic Acidosis Volume Overload UTI Hyponatremia Methadone Maintenance HTN - PO as tolerated - completed antibiotics - continue lasix - monitor urine output, creatinine - continue lactulose, rifaximin - benzos as needed - continue methadone - DVT/GI prophylaxis - can monitor on floor
--- NOTE | 2019-01-28 13:46 | PN ---
Physical Exam: SUBJECTIVE: Patient seen and examined at bedside. Pt AO X 4. Had BM's. OBJECTIVE: Vital Signs Period Temp Pulse Resp BP Sys/Phipps Pulse Ox Last 24 Hr 98.7 F-99.3 F 93-115 16-24 105-133/64-98 96-99 GENERAL: The patient is awake, alert, and fully oriented, in no acute distress. Eyes- scleral icteric NECK: supple. LUNGS: Breath sounds equal, coarse breath sounds at bases. HEART: Regular rate and rhythm, S1, S2 without murmur, rub or gallop. ABDOMEN: Soft, increased distention, tympanitic EXTREMITIES: warm, well-perfused, no edema. NEUROLOGICAL: Normal speech, AO X 4. PSYCH: Normal mood, normal affect. SKIN: Warm, dry, palmar erythema, caput medusae no longer appreciated. Laboratory Results - last 24 hr 01/28/19 01/28/19 05:35 05:35 WBC 13.2 H RBC 3.35 L Hgb 11.6 L Hct 34.6 L MCV 103.1 H MCH 34.7 H MCHC 33.7 RDW 15.8 Plt Count 296 MPV 9.9 Absolute Neuts (auto) 8.7 H Neutrophils % 65.6 Neutrophils % (Manual) 65.0 Band Neutrophils % 3.0 Lymphocytes % 19.0 D Lymphocytes % (Manual) 15.0 Monocytes % 8.7 Monocytes % (Manual) 7 D Eosinophils % 5.7 H Eosinophils % (Manual) 6.0 H Basophils % 1.0 Basophils % (Manual) 3.0 H D Myelocytes % (Man) 0 D Promyelocytes % (Man) 0 Blast Cells % (Manual) 0 Nucleated RBC % 0 Metamyelocytes 1 Hypochromia 0 Platelet Estimate Normal Polychromasia 1+ Poikilocytosis 0 Basophilic Stippling 1+ Anisocytosis 1+ Microcytosis 0 Macrocytosis 1+ Stomatocytes 1+ Sodium 135 L Potassium 3.5 Chloride 97 L Carbon Dioxide 31 Anion Gap 8 BUN 15.4 Creatinine 0.7 Est GFR (CKD-EPI)AfAm 138.75 Est GFR (CKD-EPI)NonAf 119.71 Random Glucose 91 Calcium 8.7 Phosphorus 3.0 Magnesium 1.7 L Total Bilirubin 8.3 H AST 240 H ALT 157 H Alkaline Phosphatase 158 H Total Protein 7.3 Albumin 2.1 L Active Medications Generic Name Dose Route Start Last Admin Trade Name Freq PRN Reason Stop Dose Admin Chlorhexidine Gluconate 1 applic 01/16/19 22:00 01/27/19 21:22 Hibiclens For Decolonization - TP 1 applic HS MIESHA Administration Folic Acid 1 mg 01/17/19 10:00 01/28/19 09:47 Folic Acid - PO 1 mg DAILY MIESHA Administration Furosemide 40 mg 01/28/19 06:00 01/28/19 13:12 Lasix Injection - IVPUSH 40 mg 0600,1400 MIESHA Administration Heparin Sodium (Porcine) 5,000 unit 01/27/19 22:00 01/28/19 13:12 Heparin - SQ 5,000 unit TID MIESHA Administration Famotidine/Sodium Chloride 20 mg in 50 mls @ 100 mls/hr 01/24/19 10:45 09:46 Pepcid 20 Mg Premixed Ivpb - IVPB 100 mls/hr DAILY MIESHA Administration Lactulose 30 gm 01/28/19 05:45 01/28/19 13:12 Cephulac (Oral Use) PO 30 gm TID MIESHA Administration Lorazepam 1 mg 01/27/19 11:50 Ativan Injection - IVPUSH Q6H PRN ANXIETY Methadone HCl 40 mg/ Methadone 60 mg 01/29/19 06:00 HCl 20 mg PO DAILY@0600 MIESHA Nystatin 1 applic 01/24/19 14:11 01/28/19 09:47 Mycostatin Cream - TP 1 applic BID MIESHA Administration Rifaximin 550 mg 01/27/19 22:00 01/28/19 09:47 Xifaxan - PO 550 mg BID MIESHA Administration Thiamine HCl 200 mg 01/22/19 10:00 01/28/19 09:46 Vitamin B1 Injection - IVPB 200 mg DAILY MIESHA Administration ASSESSMENT/PLAN: 38M [facility] pt (etoh detox 01/15/19) PMH HTN, polysubstance abuse(1.5 pints vodka daily, on methadone) admitted to ICU for severe alcohol withdrawal with acute respiratory failure likely 2/2 DT's. Neuro - Acute alcohol withdrawal/Delirium Tremens -AO X 4, off sedation, extubated. Pulmonary - Acute respiratory failure 2/2 Alcoholic hepatitis induced DT's - extubated on ventimask off sedation - given 60mg PO methadone daily, increase by 10mg each day discussed w primary team GI - Acute liver failure likely 2/2 alcoholic hepatitis/Hepatic encephalopathy - Doubt this presentation is due to H.E. likely 2/2 alcoholic hepatitis. - downtrending transaminitis - c/w PO rifaximin - c/w banana bag, IV LR 100 cc/hr, thiamine, folate - Aspiration precautions, HOB elevation - c/w lactose free, low residue, low fiber, low carb chopped diet - KUB showing nonobstructive air in colon consistent w previous but concern for increased distention post feeding appreciated so it was done. Renal - DAMIAN, likely in setting of Type I (severe) hepatorenal syndrome/cirrhosis - Urine studies: FeNa- 0.1 % - Ruvalcaba, strict I/O - pt making adequate amount of urine. Heme - Thrombocytopenia - likely 2/2 cirrhosis, resolved. ID - likely UTI/R/o other causes of infn - Sputum Cx positive - UA 2+ LE and Nitrites - fever-resolved - off abx FENGI continue to follow lytes replete PRN - chopped diet PPX - Heparin 5K TID Dispo: Patient can be transferred to med surg. Thank you for this consultative opportunity! Visit type - Emergency Visit Emergency Visit: Yes ED Registration Date: 01/16/19 Care time: The patient presented to the Emergency Department on the above date and was hospitalized for further evaluation of their emergent condition. - New Patient This patient is new to me today: No - Critical Care Critical Care patient: Yes Total Critical Care Time (in minutes): 35 Critical Care Statement: The care of this patient involved high complexity decision making to prevent further life threatening deterioration of the patient 's condition and/or to evaluate & treat vital organ system(s) failure or risk of failure. - Discharge Referral Referred to [facility] Med P.C.: No
--- NOTE | 2019-01-28 14:40 | PN.GI ---
GI Progress Note Subjective: Pt seen/examined, extubated. Pts mother and sister present. Pt feeling better, weak, denies abdominal pain. Moving bowels. - Objective Vital Signs: Vital Signs Temperature 99.2 F 01/28/19 13:09 Pulse Rate 115 H 01/28/19 13:09 Respiratory Rate 22 H 01/28/19 13:09 Blood Pressure 105/84 01/28/19 12:00 O2 Sat by Pulse Oximetry (%) 99 01/28/19 09:00 Constitutional: No Distress, Calm, Other (Jaundiced) Cardiovascular: Yes: WNL, Regular Rate and Rhythm Respiratory: Yes: WNL, Regular, CTA Bilaterally ...Palpate: Yes: Other (Abd softly distended, nontender, no rebound, guarding or rigidity) Labs: CBC, BMP 01/28/19 05:35 01/28/19 05:35 INR, PTT INR 1.13 (0.83-1.09) H 01/27/19 05:30 Problem List - Problems (1) Alcoholic hepatitis Assessment/Plan: 38yo male h/o etoh abuse presenting with increased agitation and elevated LFTs s /p intubation. Likely delirium tremens in setting of etoh hepatitis. LFTs improved though appear to have plateaued. Hepatitis panel negative. CT abd/ pelvis revealing hepatomegaly, ileus pattern, and pneumonia. -Continue supportive measures -Continue to monitor LFTs and coags -Monitor and replete electrolytes as needed as would contribute to ileus/ dysmotility -Follow up BI[employer]ICAL ENGINEERING TECHNOLOGIST recommendations and advance diet as tolerated -Continue rifaximin and lactulose, titrate to 2-3 loose bms -Discussed importance of strict etoh abstinence and risks of progressive liver injury and associated complications if continues to drink. -Further management per MICU Code(s): K70.10 - ALCOHOLIC HEPATITIS WITHOUT ASCITES Qualifiers: Ascites presence: without ascites Qualified Code(s): K70.10 - Alcoholic hepatitis without ascites
--- NOTE | 2019-01-28 17:00 | PN ---
Physical Exam: SUBJECTIVE: Patient seen and examined. pt awake, AAOx3. sweating but denying any pain OBJECTIVE: Vital Signs Period Temp Pulse Resp BP Sys/Phipps Pulse Ox Last 24 Hr 98.7 F-99.3 F 93-116 18-24 105-138/64-102 96-99 GENERAL: The patient is awake, alert, and fully oriented, in mild distress. HEAD: Normal with no signs of trauma. EYES: PERRL, extraocular movements intact, sclera icteric, conjunctiva clear. No ptosis. ENT: oropharynx clear without exudates but with poor dentition, moist mucous membranes. LUNGS: Breath sounds equal, clear to auscultation bilaterally, no wheezes, no crackles, no accessory muscle use. HEART: Regular rate and rhythm, S1, S2 without murmur, rub or gallop. ABDOMEN: Soft, nontender, distended, normoactive bowel sounds, no guarding, no rebound, no hepatosplenomegaly, no masses. EXTREMITIES: 2+ pulses, warm, well-perfused, trace edema. NEUROLOGICAL: Cranial nerves II through XII grossly intact. Normal speech, gait not observed. PSYCH: Normal mood, normal affect. SKIN: improving fungal rash Laboratory Results - last 24 hr 01/28/19 01/28/19 05:35 05:35 WBC 13.2 H RBC 3.35 L Hgb 11.6 L Hct 34.6 L MCV 103.1 H MCH 34.7 H MCHC 33.7 RDW 15.8 Plt Count 296 MPV 9.9 Absolute Neuts (auto) 8.7 H Neutrophils % 65.6 Neutrophils % (Manual) 65.0 Band Neutrophils % 3.0 Lymphocytes % 19.0 D Lymphocytes % (Manual) 15.0 Monocytes % 8.7 Monocytes % (Manual) 7 D Eosinophils % 5.7 H Eosinophils % (Manual) 6.0 H Basophils % 1.0 Basophils % (Manual) 3.0 H D Myelocytes % (Man) 0 D Promyelocytes % (Man) 0 Blast Cells % (Manual) 0 Nucleated RBC % 0 Metamyelocytes 1 Hypochromia 0 Platelet Estimate Normal Polychromasia 1+ Poikilocytosis 0 Basophilic Stippling 1+ Anisocytosis 1+ Microcytosis 0 Macrocytosis 1+ Stomatocytes 1+ Sodium 135 L Potassium 3.5 Chloride 97 L Carbon Dioxide 31 Anion Gap 8 BUN 15.4 Creatinine 0.7 Est GFR (CKD-EPI)AfAm 138.75 Est GFR (CKD-EPI)NonAf 119.71 Random Glucose 91 Calcium 8.7 Phosphorus 3.0 Magnesium 1.7 L Total Bilirubin 8.3 H AST 240 H ALT 157 H Alkaline Phosphatase 158 H Total Protein 7.3 Albumin 2.1 L Active Medications Generic Name Dose Route Start Last Admin Trade Name Freq PRN Reason Stop Dose Admin Chlorhexidine Gluconate 1 applic 01/16/19 22:00 01/27/19 21:22 Hibiclens For Decolonization - TP 1 applic HS MIESHA Administration Folic Acid 1 mg 01/17/19 10:00 01/28/19 09:47 Folic Acid - PO 1 mg DAILY MIESHA Administration Furosemide 40 mg 01/28/19 06:00 01/28/19 13:12 Lasix Injection - IVPUSH 40 mg 0600,1400 MIESHA Administration Heparin Sodium (Porcine) 5,000 unit 01/27/19 22:00 01/28/19 13:12 Heparin - SQ 5,000 unit TID MIESHA Administration Famotidine/Sodium Chloride 20 mg in 50 mls @ 100 mls/hr 01/24/19 10:45 09:46 Pepcid 20 Mg Premixed Ivpb - IVPB 100 mls/hr DAILY MIESHA Administration Lactulose 30 gm 01/28/19 05:45 01/28/19 13:12 Cephulac (Oral Use) PO 30 gm TID MIESHA Administration Lorazepam 1 mg 01/27/19 11:50 Ativan Injection - IVPUSH Q6H PRN ANXIETY Methadone HCl 40 mg/ Methadone 60 mg 01/29/19 06:00 HCl 20 mg PO DAILY@0600 MIESHA Nystatin 1 applic 01/24/19 14:11 01/28/19 09:47 Mycostatin Cream - TP 1 applic BID MIESHA Administration Rifaximin 550 mg 01/27/19 22:00 01/28/19 09:47 Xifaxan - PO 550 mg BID MIESHA Administration Thiamine HCl 200 mg 01/22/19 10:00 01/28/19 09:46 Vitamin B1 Injection - IVPB 200 mg DAILY MIESHA Administration ASSESSMENT/PLAN: 38M [facility] pt (etoh detox 01/15/19) PMH HTN, polysubstance abuse(1.5 pints vodka daily, on methadone) admitted to ICU for severe alcohol withdrawal with DT 's. Delirium Tremens Pt AAOx3 patient off sedation and extubated and breathing on RA c/w banana bag thiamine, folate, B12 f/u electrolytes , repleted as needed Aspiration precautions on Ativan PRN cont lactulose on chopped diet as pt more awake Acute hypoxic resp failure improved alcoholic hepatitis LFTs stable around the similar values but AST today higher at 240, ALT 157, ALP 158 Albumin 2.1. continue lactulose, Rifaximin 550 BID added by GI monitor Rash minimal redness present as of today continuing topical nystatin cream BID DAMIAN, likely in setting of Type I (severe) hepatorenal syndrome/cirrhosis Cr 0.7 stable Ruvalcaba, strict I/O- pt making adequate amount of urine. No NSAIDs Avoid contrast exposure Recurrent fever Patient continues to remain afebrile Polysubstance abuse methadone increased to 60mg FEN Dysphagia diet chopped DVT Hep subQ Visit type - Emergency Visit Emergency Visit: Yes ED Registration Date: 01/16/19 Care time: The patient presented to the Emergency Department on the above date and was hospitalized for further evaluation of their emergent condition. - New Patient This patient is new to me today: No - Critical Care Critical Care patient: Yes Total Critical Care Time (in minutes): 35 Critical Care Statement: The care of this patient involved high complexity decision making to prevent further life threatening deterioration of the patient 's condition and/or to evaluate & treat vital organ system(s) failure or risk of failure. - Discharge Referral Referred to [facility] Med P.C.: No ATTENDING PHYSICIAN STATEMENT I saw and evaluated the patient. I reviewed the resident's note and discussed the case with the resident. I agree with the resident's findings and plan as documented. SUBJECTIVE: OBJECTIVE: ASSESSMENT AND PLAN:
[2019-01-28] MEDS: CHLORHEXIDINE GLUCONATE 4% CLEANSER FOR DECOLONIZATION TP SCH (21:35)
[2019-01-29] MEDS ORDERED: METHADONE HCL 10 MG TABLET ONE (05:47)
[2019-01-29] MEDS ORDERED: METHADONE HCL 40 MG DISPERSABLE TABLET ONE (05:47)
[2019-01-29] MEDS: HEPARIN NA (PORCINE) 5,000 UNITS/ML 1ML VIAL SQ SCH ×3 (05:50→21:28)
[2019-01-29] MEDS: METHADONE 40 MG, METHADONE 20 MG PO SCH (05:50)
[2019-01-29] MEDS: LACTULOSE 20 GM/30 ML UDC (FOR ORAL USE ONLY) PO SCH ×3 (05:50→21:28)
[2019-01-29] MEDS: FUROSEMIDE 40 MG/4 ML INJECTABLE VIAL IVPUSH SCH (05:51)
[2019-01-29 06:27] LABS: EOS % 6.4 % (0-4.5); HEMATOCRIT 32.8 % (35.4-49); HEMOGLOBIN 11.2 GM/dL (11.7-16.9); LYMPH % 17.7 % (8-40); MCH 34.8 pg (25.7-33.7); MEAN CELL VOLUME 102.1 fl (80-96); MEAN PLT VOLUME 10.1 fl (7.5-11.1); MONO % 8.7 % (3.8-10.2); NEUT % 66.2 % (42.8-82.8); RBC 3.21 M/mm3 (4.00-5.60); RDW 15.8 % (11.9-15.9); WHITE BLOOD COUNT 12.9 K/mm3 (4.0-10.0)
[2019-01-29 06:45] LABS: ALBUMIN 2.1 g/dl (3.4-5.0); BILIRUBIN,TOTAL 7.5 mg/dL (0.2-1); BLOOD UREA NITROGEN 13.4 mg/dL (7-18); CALCIUM 8.3 mg/dL (8.5-10.1); CREATININE 0.6 mg/dL (0.55-1.3); MAGNESIUM 1.7 mg/dL (1.8-2.4); PHOSPHOROUS 3.2 mg/dL (2.5-4.9); TOT PROT 6.9 g/dl (6.4-8.2)
[2019-01-29] MEDS ORDERED: MAGNESIUM SULF 50% (8.12 MEQ/2 ML-1 GM VIAL) IVPB ONE (08:20)
[2019-01-29] MEDS: KCL 10 MEQ IVPB 10 MEQ/100 ML INFUS.BAG IVPB SCH ×3 (08:44→12:21)
[2019-01-29] MEDS: RIFAXIMIN 550 MG TABLET (UD) PO SCH ×2 (09:04→21:28)
[2019-01-29] MEDS: FOLIC ACID 1 MG TABLET (FP) PO SCH (09:04)
[2019-01-29] MEDS: NYSTATIN 100,000 UNIT/GM TOPICAL CREAM 15 GM TUBE TP SCH ×2 (09:05→21:28)
[2019-01-29] MEDS: FAMOTIDINE 20 MG/50 ML IVPB 20 MG/50 ML MG IVPB SCH (09:05)
[2019-01-29] MEDS ORDERED: PT OWN MED DRAWER 7, Y5N ONE (09:10)
[2019-01-29] MEDS: THIAMINE HCL 200 MG/2 ML VIAL IVPB SCH (09:11)
[2019-01-29 09:52] LABS: ANISOCYTOSIS 1+; MACROCYTOSIS 1+
--- NOTE | 2019-01-29 10:39 | PN ---
Progress Note, EXCELLENCE CONSULTANT - Note Progress Note: Selected Entries 01/29/19 01/29/19 02:00 06:00 Temperature 99.6 F 98.4 F Laboratory Tests 01/26/19 01/27/19 01/28/19 05:35 05:30 05:35 WBC 12.9 H 13.3 H 13.2 H 01/29/19 05:50 WBC 12.9 H More verbal, speaking in Cymro. Much improved since initial consult. Pt not eating a lot, enjoying yogurt, likes soup. Pt initially refused candi cracker. He took a small piece, reported difficulty chewing secondary to limited dentition and some stasis in pharynx. Brief throat clear/cough intermittently observed with continuous drinking of water. Not congested. Breathing comfortably. Suggest-Downgrade to Dysphagia ground, Magic cup, Ensure pudding (Reported to dislike Ensure) Thin liquid single sips. If cough continues responsively, congestion, fever, MBS
--- NOTE | 2019-01-29 12:40 | PN ---
Teaching Attending Note Name of Resident: Raisa Dhillon ATTENDING PHYSICIAN STATEMENT I saw and evaluated the patient. I reviewed the resident's note and discussed the case with the resident. I agree with the resident's findings and plan as documented. SUBJECTIVE: Patient seen and examined in the ICU. Remains extubated. Awake and alert, appears overall better. OBJECTIVE: Intake & Output 01/26/19 01/27/19 01/28/19 01/29/19 23:59 23:59 23:59 23:59 Intake Total 1800 1110 940 200 Output Total 1100 1500 1000 400 Balance 700 -390 -60 -200 Weight 243 lb 3.2 oz 239 lb 8 oz 240 lb 206 lb 14.4 oz Last Vital Signs Temp Pulse Resp BP Pulse Ox 98.6 F 92 H 16 131/91 98 01/29/19 10:00 01/29/19 12:00 01/29/19 12:00 01/29/19 12:00 01/29/19 09:00 Active Medications Chlorhexidine Gluconate (Hibiclens For Decolonization -) 1 applic TP HS [facility] Last Admin: 01/28/19 21:35 Dose: 1 applic Folic Acid (Folic Acid -) 1 mg PO DAILY [facility] Last Admin: 01/29/19 09:04 Dose: 1 mg Heparin Sodium (Porcine) (Heparin -) 5,000 unit SQ TID [facility] Last Admin: 01/29/19 05:50 Dose: 5,000 unit Famotidine/Sodium Chloride (Pepcid 20 Mg Premixed Ivpb -) 20 mg in 50 mls @ 100 mls/hr IVPB DAILY [facility] Last Admin: 01/29/19 09:05 Dose: 100 mls/hr Lactulose (Cephulac (Oral Use)) 30 gm PO TID [facility] Last Admin: 01/29/19 05:50 Dose: 30 gm Lorazepam (Ativan Injection -) 1 mg IVPUSH Q6H PRN PRN Reason: ANXIETY Methadone HCl 40 mg/ Methadone (HCl 20 mg) 60 mg PO DAILY@0600 [facility] Last Admin: 01/29/19 05:50 Dose: 60 mg Nystatin (Mycostatin Cream -) 1 applic TP BID [facility] Last Admin: 01/29/19 09:05 Dose: 1 applic Rifaximin (Xifaxan -) 550 mg PO BID [facility] Last Admin: 01/29/19 09:04 Dose: 550 mg Thiamine HCl (Vitamin B1 Injection -) 200 mg IVPB DAILY [facility] Last Admin: 01/29/19 09:11 Dose: 200 mg Gen: NAD, jaundiced Heart: RRR Lung: S1S2, decreased breath sounds at the bases Abd: softly distended, nontender Ext: improving edema Laboratory Results - last 24 hr 01/29/19 01/29/19 05:50 05:50 WBC 12.9 H RBC 3.21 L Hgb 11.2 L Hct 32.8 L MCV 102.1 H MCH 34.8 H MCHC 34.0 RDW 15.8 Plt Count Business Administration Professor MPV 10.1 Absolute Neuts (auto) 8.6 H Neutrophils % 66.2 Neutrophils % (Manual) 67.8 Band Neutrophils % 0.0 Lymphocytes % 17.7 Lymphocytes % (Manual) 17.8 Monocytes % 8.7 Monocytes % (Manual) 7 Eosinophils % 6.4 H Eosinophils % (Manual) 6.6 H Basophils % 1.0 Basophils % (Manual) 1.1 Myelocytes % (Man) 0 Promyelocytes % (Man) 0 Blast Cells % (Manual) 0 Nucleated RBC % 0 Metamyelocytes 0 D Hypochromia 0 Platelet Comment Present Polychromasia 0 Poikilocytosis 0 Anisocytosis 1+ Microcytosis 0 Macrocytosis 1+ Sodium 133 L Potassium 3.0 L Chloride 95 L Carbon Dioxide 29 Anion Gap 9 BUN 13.4 Creatinine 0.6 Est GFR (CKD-EPI)AfAm 147.82 Est GFR (CKD-EPI)NonAf 127.55 Random Glucose 88 Calcium 8.3 L Phosphorus 3.2 Magnesium 1.7 L Total Bilirubin 7.5 H AST 223 H ALT 156 H Alkaline Phosphatase 141 H Total Protein 6.9 Albumin 2.1 L ASSESSMENT AND PLAN: s/p Acute Respiratory Failure Acute Alcohol Withdrawal/Delerium Tremens Alcoholic Hepatitis Acute Kidney Injury improving Hepatic Encephalopathy Coagulopathy Lactic Acidosis Volume Overload UTI Hyponatremia Methadone Maintenance HTN - PO as tolerated - completed antibiotics - DC Lasix - monitor urine output, creatinine - continue lactulose, rifaximin - benzos as needed - continue methadone - DVT/GI prophylaxis - can monitor on floor Dr Fry
--- NOTE | 2019-01-29 15:44 | PN ---
Physical Exam: SUBJECTIVE: Patient seen and examined at bedside. pt has no acute complaints. OBJECTIVE: Vital Signs Period Temp Pulse Resp BP Sys/Phipps Pulse Ox Last 24 Hr 98.4 F-99.6 F 92-110 13-22 100-141/75-97 98-98 GENERAL: The patient is awake, alert, and fully oriented, in no acute distress. Eyes: sclera icterae LUNGS: Breath sounds equal, clear to auscultation bilaterally HEART: Regular rate and rhythm, S1, S2 without murmur, rub or gallop. ABDOMEN: nontender, mildly distended, normoactive bowel sounds, caput medusa EXTREMITIES: 2+ pulses, warm, well-perfused, no edema. SKIN: Warm, dry, normal turgor, no rashes or lesions noted Laboratory Results - last 24 hr 01/29/19 01/29/19 05:50 05:50 WBC 12.9 H RBC 3.21 L Hgb 11.2 L Hct 32.8 L MCV 102.1 H MCH 34.8 H MCHC 34.0 RDW 15.8 Plt Count Ladies' Locker Room Attendant MPV 10.1 Absolute Neuts (auto) 8.6 H Neutrophils % 66.2 Neutrophils % (Manual) 67.8 Band Neutrophils % 0.0 Lymphocytes % 17.7 Lymphocytes % (Manual) 17.8 Monocytes % 8.7 Monocytes % (Manual) 7 Eosinophils % 6.4 H Eosinophils % (Manual) 6.6 H Basophils % 1.0 Basophils % (Manual) 1.1 Myelocytes % (Man) 0 Promyelocytes % (Man) 0 Blast Cells % (Manual) 0 Nucleated RBC % 0 Metamyelocytes 0 D Hypochromia 0 Platelet Comment Present Polychromasia 0 Poikilocytosis 0 Anisocytosis 1+ Microcytosis 0 Macrocytosis 1+ Sodium 133 L Potassium 3.0 L Chloride 95 L Carbon Dioxide 29 Anion Gap 9 BUN 13.4 Creatinine 0.6 Est GFR (CKD-EPI)AfAm 147.82 Est GFR (CKD-EPI)NonAf 127.55 Random Glucose 88 Calcium 8.3 L Phosphorus 3.2 Magnesium 1.7 L Total Bilirubin 7.5 H AST 223 H ALT 156 H Alkaline Phosphatase 141 H Total Protein 6.9 Albumin 2.1 L Current Medications Chlorhexidine Gluconate (Hibiclens For Decolonization -) 1 applic TP HS [facility] Last Admin: 01/28/19 21:35 Dose: 1 applic Folic Acid (Folic Acid -) 1 mg PO DAILY [facility] Last Admin: 01/29/19 09:04 Dose: 1 mg Heparin Sodium (Porcine) (Heparin -) 5,000 unit SQ TID [facility] Last Admin: 01/29/19 13:26 Dose: 5,000 unit Famotidine/Sodium Chloride (Pepcid 20 Mg Premixed Ivpb -) 20 mg in 50 mls @ 100 mls/hr IVPB DAILY [facility] Last Admin: 01/29/19 09:05 Dose: 100 mls/hr Lactulose (Cephulac (Oral Use)) 30 gm PO TID [facility] Last Admin: 01/29/19 13:26 Dose: 30 gm Lorazepam (Ativan Injection -) 1 mg IVPUSH Q6H PRN PRN Reason: ANXIETY Methadone HCl 40 mg/ Methadone (HCl 20 mg) 60 mg PO DAILY@0600 [facility] Last Admin: 01/29/19 05:50 Dose: 60 mg Nystatin (Mycostatin Cream -) 1 applic TP BID [facility] Last Admin: 01/29/19 09:05 Dose: 1 applic Rifaximin (Xifaxan -) 550 mg PO BID [facility] Last Admin: 01/29/19 09:04 Dose: 550 mg Thiamine HCl (Vitamin B1 Injection -) 200 mg IVPB DAILY [facility] Last Admin: 01/29/19 09:11 Dose: 200 mg ASSESSMENT/PLAN: [address] [facility] pt (etoh detox 01/15/19) PMH HTN, polysubstance abuse(1.5 pints vodka daily, on methadone) admitted to ICU for severe alcohol withdrawal with acute respiratory failure likely 2/2 DT's. Neuro : Acute alcohol withdrawal;Delirium Tremens -AAO X 3, off sedation Pulmonary : Acute respiratory failure 2/2 Alcoholic hepatitis - s/p extubation -saturating well on RA - given 60mg PO methadone daily, increase by 10mg each day discussed w primary team GI : Acute liver failure likely 2/2 alcoholic hepatitis/Hepatic encephalopathy - downtrending transaminitis - c/w PO rifaximin - c/w thiamine, folate - Aspiration precautions, HOB elevation - c/w lactose free, low residue, low fiber, low carb chopped diet - KUB showing nonobstructive air in colon consistent w previous but concern for increased distention post feeding appreciated so it was done. Renal : DAMIAN, likely 2/2 Type I (severe) hepatorenal syndrome - Urine studies: FeNa- 0.1 % - pt making adequate amount of urine. Heme - Thrombocytopenia - likely 2/2 cirrhosis, resolved. ID - Sputum Cx positive - UA 2+ LE and Nitrites - fever-resolved - off abx ROBI continue to follow lytes PPX - Heparin 5K TID Dispo: Patient can be transferred to med surg. Thank you for this consultative opportunity! Visit type - Emergency Visit Emergency Visit: No - New Patient This patient is new to me today: No - Critical Care Critical Care patient: Yes Total Critical Care Time (in minutes): 36 Critical Care Statement: The care of this patient involved high complexity decision making to prevent further life threatening deterioration of the patient 's condition and/or to evaluate & treat vital organ system(s) failure or risk of failure. ATTENDING PHYSICIAN STATEMENT I saw and evaluated the patient. I reviewed the resident's note and discussed the case with the resident. I agree with the resident's findings and plan as documented. SUBJECTIVE: OBJECTIVE: ASSESSMENT AND PLAN:
--- NOTE | 2019-01-29 16:51 | PN.GI ---
GI Progress Note Subjective: Sitting up, legs crossed, watching TV Awake, alert, states feeling well today No abdominal pain - Objective Vital Signs: Vital Signs Temperature 99.4 F 01/29/19 14:00 Pulse Rate 102 H 01/29/19 14:00 Respiratory Rate 16 01/29/19 14:00 Blood Pressure 129/93 01/29/19 14:00 O2 Sat by Pulse Oximetry (%) 98 01/29/19 09:00 Constitutional: Calm Eyes: No: Sclera Icterus Cardiovascular: Yes: Regular Rate and Rhythm Respiratory: Yes: Diminished (At bases bilaterally) ...Auscultate: Yes: Normoactive Bowel Sounds ...Palpate: Yes: Soft ...Percussion: Yes: Tympanitic Edema: No (No LE edema) Neurological: Yes: Alert Labs: CBC, BMP 01/29/19 05:50 01/29/19 05:50 INR, PTT INR 1.13 (0.83-1.09) H 01/27/19 05:30 Hepatic Panel Total Bilirubin 7.5 mg/dL (0.2-1) H 01/29/19 05:50 Direct Bilirubin 10.5 mg/dL (0.0-0.2) H 01/20/19 05:45 AST 223 U/L (15-37) H 01/29/19 05:50 ALT 156 U/L (13-61) H 01/29/19 05:50 Alkaline Phosphatase 141 U/L (45-117) H 01/29/19 05:50 Albumin 2.1 g/dl (3.4-5.0) L 01/29/19 05:50 Problem List - Problems (1) Alcoholic hepatitis Assessment/Plan: Improved mentation Continue supportive measures Reenforced need formcomplete alcohol abstinence to patient [place]ym[place] on exam, Non-tender, however. FUA ordered Code(s): K70.10 - ALCOHOLIC HEPATITIS WITHOUT ASCITES Qualifiers: Ascites presence: without ascites Qualified Code(s): K70.10 - Alcoholic hepatitis without ascites
--- NOTE | 2019-01-29 17:07 | PN ---
Physical Exam: SUBJECTIVE: Patient seen and examined. Pt is talking and offering no complaints. OBJECTIVE: Vital Signs Period Temp Pulse Resp BP Sys/Phipps Pulse Ox Last 24 Hr 98.4 F-99.6 F 92-110 13-20 100-141/75-97 98-98 GENERAL: The patient is awake, alert, and fully oriented, in mild distress. HEAD: Normal with no signs of trauma. EYES: PERRL, extraocular movements intact, sclera icteric, conjunctiva clear. No ptosis. LUNGS: Breath sounds equal, clear to auscultation bilaterally, no wheezes, no crackles, no accessory muscle use. HEART: Regular rate and rhythm, S1, S2 without murmur, rub or gallop. ABDOMEN: Soft, nontender, distended, normoactive bowel sounds, no guarding, no rebound, no hepatosplenomegaly, no masses. EXTREMITIES: 2+ pulses, warm, well-perfused, no edema. Laboratory Results - last 24 hr 01/29/19 01/29/19 05:50 05:50 WBC 12.9 H RBC 3.21 L Hgb 11.2 L Hct 32.8 L MCV 102.1 H MCH 34.8 H MCHC 34.0 RDW 15.8 Plt Count Consumer Loan Processor MPV 10.1 Absolute Neuts (auto) 8.6 H Neutrophils % 66.2 Neutrophils % (Manual) 67.8 Band Neutrophils % 0.0 Lymphocytes % 17.7 Lymphocytes % (Manual) 17.8 Monocytes % 8.7 Monocytes % (Manual) 7 Eosinophils % 6.4 H Eosinophils % (Manual) 6.6 H Basophils % 1.0 Basophils % (Manual) 1.1 Myelocytes % (Man) 0 Promyelocytes % (Man) 0 Blast Cells % (Manual) 0 Nucleated RBC % 0 Metamyelocytes 0 D Hypochromia 0 Platelet Comment Present Polychromasia 0 Poikilocytosis 0 Anisocytosis 1+ Microcytosis 0 Macrocytosis 1+ Sodium 133 L Potassium 3.0 L Chloride 95 L Carbon Dioxide 29 Anion Gap 9 BUN 13.4 Creatinine 0.6 Est GFR (CKD-EPI)AfAm 147.82 Est GFR (CKD-EPI)NonAf 127.55 Random Glucose 88 Calcium 8.3 L Phosphorus 3.2 Magnesium 1.7 L Total Bilirubin 7.5 H AST 223 H ALT 156 H Alkaline Phosphatase 141 H Total Protein 6.9 Albumin 2.1 L Active Medications Generic Name Dose Route Start Last Admin Trade Name Freq PRN Reason Stop Dose Admin Chlorhexidine Gluconate 1 applic 01/16/19 22:00 01/28/19 21:35 Hibiclens For Decolonization - TP 1 applic HS [facility] Administration Folic Acid 1 mg 01/17/19 10:00 01/29/19 09:04 Folic Acid - PO 1 mg DAILY [facility] Administration Heparin Sodium (Porcine) 5,000 unit 01/27/19 22:00 01/29/19 13:26 Heparin - SQ 5,000 unit TID [facility] Administration Famotidine/Sodium Chloride 20 mg in 50 mls @ 100 mls/hr 01/24/19 10:45 09:05 Pepcid 20 Mg Premixed Ivpb - IVPB 100 mls/hr DAILY [facility] Administration Lactulose 30 gm 01/28/19 05:45 01/29/19 13:26 Cephulac (Oral Use) PO 30 gm TID [facility] Administration Lorazepam 1 mg 01/27/19 11:50 Ativan Injection - IVPUSH Q6H PRN ANXIETY Methadone HCl 40 mg/ Methadone 60 mg 01/29/19 06:00 01/29/19 05:50 HCl 20 mg PO 60 mg DAILY@0600 [facility] Administration Nystatin 1 applic 01/24/19 14:11 01/29/19 09:05 Mycostatin Cream - TP 1 applic BID [facility] Administration Rifaximin 550 mg 01/27/19 22:00 01/29/19 09:04 Xifaxan - PO 550 mg BID [facility] Administration Thiamine HCl 200 mg 01/22/19 10:00 01/29/19 09:11 Vitamin B1 Injection - IVPB 200 mg DAILY [facility] Administration ASSESSMENT/PLAN: 38M [facility] pt (etoh detox 01/15/19) PMH HTN, polysubstance abuse(1.5 pints vodka daily, on methadone) admitted to ICU for severe alcohol withdrawal with DT 's. Delirium Tremens Pt AAOx3 patient off sedation and extubated and breathing on NC c/w banana bag thiamine, folate, B12 f/u electrolytes , repleted as needed Aspiration precautions on Ativan PRN cont lactulose on chopped diet as pt more awake Acute hypoxic resp failure improved alcoholic hepatitis LFTs stable around the similar values but Tbil 7.5 AST today higher at 223, ALT 156, ALP 141 Albumin 2.1. continue lactulose, Rifaximin 550 BID added by GI monitor Rash minimal redness present as of today continuing topical nystatin cream BID DAMIAN, likely in setting of Type I (severe) hepatorenal syndrome/cirrhosis Cr 0.6 stable [place], strict I/O- pt making adequate amount of urine. No NSAIDs Avoid contrast exposure Polysubstance abuse methadone increased to 60mg FEN Dysphagia diet chopped DVT Hep subQ Visit type - Emergency Visit Emergency Visit: Yes ED Registration Date: 01/16/19 Care time: The patient presented to the Emergency Department on the above date and was hospitalized for further evaluation of their emergent condition. - New Patient This patient is new to me today: No - Critical Care Critical Care patient: Yes Total Critical Care Time (in minutes): 35 Critical Care Statement: The care of this patient involved high complexity decision making to prevent further life threatening deterioration of the patient 's condition and/or to evaluate & treat vital organ system(s) failure or risk of failure. - Discharge Referral Referred to [facility] Med P.C.: No ATTENDING PHYSICIAN STATEMENT I saw and evaluated the patient. I reviewed the resident's note and discussed the case with the resident. I agree with the resident's findings and plan as documented. SUBJECTIVE: OBJECTIVE: ASSESSMENT AND PLAN:
--- NOTE | 2019-01-29 18:34 | PN ---
[facility] Progress Note (SOAP) Subjective: 38 y.o. male referred for consultation regarding MMTP . Pt is currently extubated, s/p acute Respiratory Failure , acute alcohol Withdrawal/ Delirium Tremens, Alcoholic Hepatitis, Acute Kidney Injury Hepatic Encephalopathy, Coagulopathy, Lactic Acidosis, volume Overload, UTI, Hyponatremia, HTN. PSHX : r index finger @ age 3 injury Active Medications Chlorhexidine Gluconate (Hibiclens For Decolonization -) 1 applic TP HS [facility] Last Admin: 01/28/19 21:35 Dose: 1 applic Folic Acid (Folic Acid -) 1 mg PO DAILY [facility] Last Admin: 01/29/19 09:04 Dose: 1 mg Heparin Sodium (Porcine) (Heparin -) 5,000 unit SQ TID [facility] Last Admin: 01/29/19 13:26 Dose: 5,000 unit Famotidine/Sodium Chloride (Pepcid 20 Mg Premixed Ivpb -) 20 mg in 50 mls @ 100 mls/hr IVPB DAILY [facility] Last Admin: 01/29/19 09:05 Dose: 100 mls/hr Lactulose (Cephulac (Oral Use)) 30 gm PO TID [facility] Last Admin: 01/29/19 13:26 Dose: 30 gm Lorazepam (Ativan Injection -) 1 mg IVPUSH Q6H PRN PRN Reason: ANXIETY Methadone HCl 40 mg/ Methadone (HCl 20 mg) 60 mg PO DAILY@0600 [facility] Last Admin: 01/29/19 05:50 Dose: 60 mg Nystatin (Mycostatin Cream -) 1 applic TP BID [facility] Last Admin: 01/29/19 09:05 Dose: 1 applic Rifaximin (Xifaxan -) 550 mg PO BID [facility] Last Admin: 01/29/19 09:04 Dose: 550 mg Thiamine HCl (Vitamin B1 Injection -) 200 mg IVPB DAILY [facility] Last Admin: 01/29/19 09:11 Dose: 200 mg Objective: wnwd , confused at times, Heent : icteric sclerae , abd : distended Ext + ue tremors Abnormal Lab Results 01/29/19 01/29/19 05:50 05:50 WBC 12.9 H RBC 3.21 L Hgb 11.2 L Hct 32.8 L MCV 102.1 H MCH 34.8 H Absolute Neuts (auto) 8.6 H Eosinophils % 6.4 H Eosinophils % (Manual) 6.6 H Sodium 133 L Potassium 3.0 L Chloride 95 L Calcium 8.3 L Magnesium 1.7 L Total Bilirubin 7.5 H AST 223 H ALT 156 H Alkaline Phosphatase 141 H Albumin 2.1 L 01/29/19 19:39 Assessment: ETOH dependence opioid dependence on agonist therapy Plan: Continue current Methadone 60 mg daily pt to f/up with MMTP upon d/c from this facility for any further dose changes unless otherwise recommended by cardiology for dose decrease d/t prolonged QTc of 517 ms on 01/16/19 .
--- NOTE | 2019-01-29 20:53 | PN ---
Teaching Attending Note Name of Resident: Yennifer Terrell ATTENDING PHYSICIAN STATEMENT I saw and evaluated the patient. I reviewed the resident's note and discussed the case with the resident. I agree with the resident's findings and plan as documented. SUBJECTIVE: Patient is feeling better continues to have distended abdomen. OBJECTIVE: Vital Signs Temperature 98.2 F 01/29/19 18:00 Pulse Rate 96 H 01/29/19 20:00 Respiratory Rate 14 01/29/19 20:00 Blood Pressure 115/81 01/29/19 20:00 O2 Sat by Pulse Oximetry (%) 98 01/29/19 09:00 GENERAL: The patient is awake, alert, and fully oriented, in no acute distress. HEAD: Normal with no signs of trauma. EYES: PERRL, extraocular movements intact, sclera icteric, conjunctiva yellow. ENT: Ears normal, oropharynx clear without exudates, moist mucous membranes. NECK: Trachea midline, full range of motion, supple. LUNGS: Breath sounds equal, clear to auscultation bilaterally, no wheezes, no crackles, no accessory muscle use. HEART: Regular rate and rhythm, S1, S2 without murmur, rub or gallop. ABDOMEN: Soft, NT,distented asbdomen, normoactive bowel sounds, no guarding, no rebound, positive for hepatomegaly , no masses appreciated. EXTREMITIES: 2+ pulses, warm, well-perfused, no edema. NEUROLOGICAL: Cranial nerves II through XII grossly intact. Normal speech, gait not observed. PSYCH: Normal mood, normal affect. SKIN: Warm, dry, normal turgor, no rashes or lesions noted CBCD WBC 12.9 K/mm3 (4.0-10.0) H 01/29/19 05:50 RBC 3.21 M/mm3 (4.00-5.60) L 01/29/19 05:50 Hgb 11.2 GM/dL (11.7-16.9) L 01/29/19 05:50 Hct 32.8 % (35.4-49) L 01/29/19 05:50 MCV 102.1 fl (80-96) H 01/29/19 05:50 MCHC 34.0 g/dl (32.0-35.9) 01/29/19 05:50 RDW 15.8 % (11.9-15.9) 01/29/19 05:50 Plt Count Gas Derrick Operator 01/29/19 05:50 MPV 10.1 fl (7.5-11.1) 01/29/19 05:50 CMP Sodium 133 mmol/L (136-145) L 01/29/19 05:50 Potassium 3.0 mmol/L (3.5-5.1) L 01/29/19 05:50 Chloride 95 mmol/L (98-107) L 01/29/19 05:50 Carbon Dioxide 29 mmol/L (21-32) 01/29/19 05:50 Anion Gap 9 MMOL/L (8-16) 01/29/19 05:50 BUN 13.4 mg/dL (7-18) 01/29/19 05:50 Creatinine 0.6 mg/dL (0.55-1.3) 01/29/19 05:50 Random Glucose 88 mg/dL (74-106) 01/29/19 05:50 Calcium 8.3 mg/dL (8.5-10.1) L 01/29/19 05:50 Total Bilirubin 7.5 mg/dL (0.2-1) H 01/29/19 05:50 AST 223 U/L (15-37) H 01/29/19 05:50 ALT 156 U/L (13-61) H 01/29/19 05:50 Alkaline Phosphatase 141 U/L (45-117) H 01/29/19 05:50 Total Protein 6.9 g/dl (6.4-8.2) 01/29/19 05:50 Albumin 2.1 g/dl (3.4-5.0) L 01/29/19 05:50 CARDIAC ENZYMES Creatine Kinase 301 U/L (26-308) 01/18/19 06:00 Troponin I < 0.02 ng/ml (0.00-0.05) 01/16/19 14:19 Current Medications Generic Name Dose Route Start Last Admin Trade Name Arturo PRN Reason Stop Dose Admin Chlorhexidine Gluconate 1 applic 01/16/19 22:00 01/28/19 21:35 Hibiclens For Decolonization - TP 1 applic HS [facility] Administration Folic Acid 1 mg 01/17/19 10:00 01/29/19 09:04 Folic Acid - PO 1 mg DAILY [facility] Administration Heparin Sodium (Porcine) 5,000 unit 01/27/19 22:00 01/29/19 13:26 Heparin - SQ 5,000 unit TID [facility] Administration Famotidine/Sodium Chloride 20 mg in 50 mls @ 100 mls/hr 01/24/19 10:45 09:05 Pepcid 20 Mg Premixed Ivpb - IVPB 100 mls/hr DAILY [facility] Administration Lactulose 30 gm 01/28/19 05:45 01/29/19 13:26 Cephulac (Oral Use) PO 30 gm TID [facility] Administration Lorazepam 1 mg 01/27/19 11:50 Ativan Injection - IVPUSH Q6H PRN ANXIETY Methadone HCl 40 mg/ Methadone 60 mg 01/29/19 06:00 01/29/19 05:50 HCl 20 mg PO 60 mg DAILY@0600 [facility] Administration Nystatin 1 applic 01/24/19 14:11 01/29/19 09:05 Mycostatin Cream - TP 1 applic BID [facility] Administration Rifaximin 550 mg 01/27/19 22:00 01/29/19 09:04 Xifaxan - PO 550 mg BID [facility] Administration Thiamine HCl 200 mg 01/22/19 10:00 01/29/19 09:11 Vitamin B1 Injection - IVPB 200 mg DAILY [facility] Administration Home Medications Medication Instructions Recorded Methadone [Dolophine -] 120 mg PO DAILY 07/20/18 Amlodipine Besylate [Norvasc -] 10 mg PO DAILY #30 tablet 09/07/18 Methadone [Dolophine -] 120 mg PO DAILY 01/14/19 NK [No Known Home Medication] 01/14/19 AbXR: distended colon ASSESSMENT AND PLAN: Patient is a 38yo man with h/o alcohol abuse, h/o opioid use with methadone maintenance who presented from [facility] with Dts. # s/p extubation / DTs /active alcohol withdrawel #s/p Acute Alcohol withdrawals: continue thiamine IV, folate #Acute on Chronic Liver disease with Alcoholic hepatitis: continue to follow up bili levels # Hepatic encephalopathy improved #DAMIAN # Hyperbilirubinemia # acute transaminits # DTs. # hepatic encephalopathy # Acute alcoholic hepatitis # Fever # drug rash vs fungal rash # Colonic ileus with distended abdomen reduced the dose of lactulose # -leukocytosis - s/p extubation. cont on 2 liter NC - reduce the dose of lactulose possible cause of the distention. rectal tube per GI - cont to monitor off Abx. no more fevers - swallow eval . Barium swallow - Monitor LFTS - cont nystatin to groin areas - [facility] notes reviewed. patient was started on methadone to titrate up to reach his 120 mg goal dose. last dose given in [facility] 60 mg. will continue the current dose since has ileus - cont ativan PRN for agitation - add heparin sq - rectal tube , axr PT follow stool for C. Diff.
[2019-01-29] MEDS: CHLORHEXIDINE GLUCONATE 4% CLEANSER FOR DECOLONIZATION TP SCH (21:28)
[2019-01-30] MEDS ORDERED: METHADONE HCL 10 MG TABLET ONE (06:20)
[2019-01-30] MEDS ORDERED: METHADONE HCL 40 MG DISPERSABLE TABLET ONE (06:21)
[2019-01-30] MEDS: LACTULOSE 20 GM/30 ML UDC (FOR ORAL USE ONLY) PO SCH ×2 (06:27→14:12)
[2019-01-30] MEDS: METHADONE 40 MG, METHADONE 20 MG PO SCH (06:27)
[2019-01-30] MEDS: HEPARIN NA (PORCINE) 5,000 UNITS/ML 1ML VIAL SQ SCH ×3 (06:27→22:16)
[2019-01-30 07:18] LABS: BLOOD UREA NITROGEN 10.3 mg/dL (7-18); CALCIUM 8.4 mg/dL (8.5-10.1); CREATININE 0.6 mg/dL (0.55-1.3); MAGNESIUM 1.8 mg/dL (1.8-2.4); POTASSIUM 3.2 mmol/L (3.5-5.1)
[2019-01-30] MEDS ORDERED: POTASSIUM CHLORIDE TABS 20 MEQ TABLET.ER (FP) PO ONE (07:28)
[2019-01-30 07:30] LABS: HEMATOCRIT 32.1 % (35.4-49); MCH 34.9 pg (25.7-33.7); MCHC 34.2 g/dl (32.0-35.9); MEAN CELL VOLUME 102.2 fl (80-96); MEAN PLT VOLUME 9.9 fl (7.5-11.1); PLATELET COUNT 283 K/MM3 (134-434); RBC 3.14 M/mm3 (4.00-5.60); RDW 15.6 % (11.9-15.9); WHITE BLOOD COUNT 14.7 K/mm3 (4.0-10.0)
--- NOTE | 2019-01-30 10:28 | PN.GI ---
GI Progress Note Subjective: Diarrhea reported yesterday, none today AXR from yesterday reveals colonic distention No abdominal pain - Objective Vital Signs: Vital Signs Temperature 98.4 F 01/30/19 06:00 Pulse Rate 95 H 01/30/19 06:00 Respiratory Rate 14 01/30/19 06:00 Blood Pressure 133/91 01/30/19 06:00 O2 Sat by Pulse Oximetry (%) 98 01/29/19 20:52 Constitutional: Calm Eyes: Yes: Sclera Icterus Cardiovascular: Yes: Regular Rate and Rhythm Respiratory: Yes: Diminished (at bases bilaterally) Gastrointestinal Inspection: Yes: Distention ...Auscultate: Yes: Normoactive Bowel Sounds ...Palpate: Yes: Firm/Rigid. No: Tenderness ...Percussion: Yes: Tympanitic ...Rectal Exam: Yes: Other (Liquid light brown stool in rectal vault. Rectal tube inserted with expulsion of copious amount of air / liquid stool. Improved tympany on exam and abdominal distention) Neurological: Yes: Alert Labs: CBC, BMP 01/30/19 06:25 01/30/19 06:25 INR, PTT INR 1.13 (0.83-1.09) H 01/27/19 05:30 - ....Imaging X-ray: Report Reviewed, Image Reviewed Problem List - Problems (1) Alcoholic hepatitis Assessment/Plan: Continuing supportive measures Mentating well, no asterixis Decrease lactulose to 30g daily Abd US to assess ascites Code(s): K70.10 - ALCOHOLIC HEPATITIS WITHOUT ASCITES Qualifiers: Ascites presence: without ascites Qualified Code(s): K70.10 - Alcoholic hepatitis without ascites (2) Ileus Assessment/Plan: Colonic ileus: Multifactorial including bed bound state, electrolyte abnormality, methadone Improvement with rectal tube decompression. Rectal tube left in and will repeat AXR Correct lytes Ambulation as feasible Check stool for C. Diff. Ordered, not collected as of yet Code(s): K56.7 - ILEUS, UNSPECIFIED
[2019-01-30] MEDS ORDERED: PT OWN MED DRAWER 7, Y5N ONE (10:45)
--- NOTE | 2019-01-30 10:48 | PN ---
Teaching Attending Note Name of Resident: Raisa Dhillon ATTENDING PHYSICIAN STATEMENT I saw and evaluated the patient. I reviewed the resident's note and discussed the case with the resident. I agree with the resident's findings and plan as documented. SUBJECTIVE: Patient seen and examined in the ICU. Awake and alert, appears overall better. Abdomen with increased distention. OBJECTIVE: Intake & Output 01/27/19 01/28/19 01/29/19 01/30/19 23:59 23:59 23:59 23:59 Intake Total 5901 588 7914 250 Output Total 1500 1000 1700 300 Balance -390 -60 -430 -50 Weight 239 lb 8 oz 240 lb 206 lb 14.4 oz 235 lb Last Vital Signs Temp Pulse Resp BP Pulse Ox 98.4 F 95 H 14 133/91 98 01/30/19 06:00 01/30/19 06:00 01/30/19 06:00 01/30/19 06:00 01/29/19 20:52 Active Medications Chlorhexidine Gluconate (Hibiclens For Decolonization -) 1 applic TP HS [facility] Last Admin: 01/29/19 21:28 Dose: 1 applic Folic Acid (Folic Acid -) 1 mg PO DAILY [facility] Last Admin: 01/29/19 09:04 Dose: 1 mg Heparin Sodium (Porcine) (Heparin -) 5,000 unit SQ TID [facility] Last Admin: 01/30/19 06:27 Dose: 5,000 unit Famotidine/Sodium Chloride (Pepcid 20 Mg Premixed Ivpb -) 20 mg in 50 mls @ 100 mls/hr IVPB DAILY [facility] Last Admin: 01/29/19 09:05 Dose: 100 mls/hr Lactulose (Cephulac (Oral Use)) 30 gm PO TID [facility] Last Admin: 01/30/19 06:27 Dose: 30 gm Lorazepam (Ativan Injection -) 1 mg IVPUSH Q6H PRN PRN Reason: ANXIETY Methadone HCl 40 mg/ Methadone (HCl 20 mg) 60 mg PO DAILY@0600 [facility] Last Admin: 01/30/19 06:27 Dose: 60 mg Nystatin (Mycostatin Cream -) 1 applic TP BID [facility] Last Admin: 01/29/19 21:28 Dose: 1 applic Rifaximin (Xifaxan -) 550 mg PO BID [facility] Last Admin: 01/29/19 21:28 Dose: 550 mg Thiamine HCl (Vitamin B1 Injection -) 200 mg IVPB DAILY [facility] Last Admin: 01/29/19 09:11 Dose: 200 mg Gen: NAD, jaundiced Heart: RRR Lung: S1S2, decreased breath sounds at the bases Abd: Increased distention, (+) Hypoactive BS Ext: improved edema Laboratory Results - last 24 hr 01/29/19 01/30/19 01/30/19 05:50 06:25 06:25 WBC 14.7 H RBC 3.14 L Hgb 11.0 L Hct 32.1 L MCV 102.2 H MCH 34.9 H MCHC 34.2 RDW 15.6 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 Count 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 283 MPV 9.9 Neutrophils % (Manual) 67.8 Band Neutrophils % 0.0 Lymphocytes % (Manual) 17.8 Monocytes % (Manual) 7 Eosinophils % (Manual) 6.6 H Basophils % (Manual) 1.1 Myelocytes % (Man) 0 Promyelocytes % (Man) 0 Blast Cells % (Manual) 0 Nucleated RBC % 0 Metamyelocytes 0 D Hypochromia 0 Platelet Comment Present Polychromasia 0 Poikilocytosis 0 Anisocytosis 1+ Microcytosis 0 Macrocytosis 1+ Sodium 133 L Potassium 3.2 L Chloride 96 L Carbon Dioxide 28 Anion Gap 8 BUN 10.3 Creatinine 0.6 Est GFR (CKD-EPI)AfAm 147.82 Est GFR (CKD-EPI)NonAf 127.55 Random Glucose 98 Calcium 8.4 L Phosphorus 3.0 Magnesium 1.8 ASSESSMENT AND PLAN: s/p Acute Respiratory Failure Acute Alcohol Withdrawal/Delerium Tremens Alcoholic Hepatitis Acute Kidney Injury improving Hepatic Encephalopathy Coagulopathy Lactic Acidosis Volume Overload UTI Hyponatremia Methadone Maintenance HTN - GI at the bedside for possible decompression - PO as tolerated - completed antibiotics - Monitor off Lasix - monitor urine output, creatinine - continue lactulose, rifaximin - benzos as needed - continue methadone - DVT/GI prophylaxis - can monitor on floor Dr Fry
[2019-01-30] MEDS: FAMOTIDINE 20 MG/50 ML IVPB 20 MG/50 ML MG IVPB SCH (10:50)
[2019-01-30] MEDS: NYSTATIN 100,000 UNIT/GM TOPICAL CREAM 15 GM TUBE TP SCH (10:50)
[2019-01-30] MEDS: FOLIC ACID 1 MG TABLET (FP) PO SCH (10:50)
[2019-01-30] MEDS: RIFAXIMIN 550 MG TABLET (UD) PO SCH ×2 (10:51→22:16)
--- NOTE | 2019-01-30 11:11 | PN ---
Progress Note, INTERVENTION NURSE - Note Progress Note: Selected Entries 01/29/19 01/29/19 02:00 06:00 Temperature 99.6 F 98.4 F Laboratory Tests 01/26/19 01/27/19 01/28/19 05:35 05:30 05:35 WBC 12.9 H 13.3 H 13.2 H 01/29/19 05:50 WBC 12.9 H Selected Entries 01/29/19 01/29/19 01/29/19 02:00 06:00 10:00 Breakfast Temperature 99.6 F 98.4 F 98.9 F 01/29/19 01/29/19 01/29/19 14:00 18:00 22:00 Breakfast Temperature 99.4 F 98.2 F 98 F 01/29/19 01/30/19 01/30/19 23:43 02:00 06:00 Breakfast Temperature 98.6 F 98.3 F 98.4 F 01/30/19 09:50 Breakfast 75% Temperature Laboratory Tests 01/28/19 01/29/19 01/30/19 05:35 05:50 06:25 WBC 13.2 H 12.9 H 14.7 H Abdomen with increased distention. GI noted. Not congested. Breathing comfortably. Suggest-Downgrade to Dysphagia ground, Magic cup, Ensure pudding (Reported to dislike Ensure) Thin liquid single sips. Unless GI feels solid diet is contraindicated at this time. If cough continues responsively, congestion, fever, MBS
--- NOTE | 2019-01-30 13:59 | EKG ---
Test Reason : Blood Pressure : / mmHG Vent. Rate : 091 BPM Atrial Rate : 091 BPM P-R Int : 138 ms QRS Dur : 084 ms QT Int : 406 ms P-R-T Axes : 038 016 013 degrees QTc Int : 499 ms NORMAL SINUS RHYTHM POSSIBLE LEFT ATRIAL ENLARGEMENT NONSPECIFIC ST AND T WAVE ABNORMALITY PROLONGED QT ABNORMAL ECG Confirmed by ZHANNA GRANT MD ([id number]) on 01/30/2019 1:59:23 PM Referred By: Confirmed By:ZHANNA GRANT MD
[2019-01-30] MEDS: THIAMINE HCL 200 MG/2 ML VIAL IVPB SCH (14:11)
--- NOTE | 2019-01-30 14:55 | PN ---
Physical Exam: SUBJECTIVE: Patient seen and examined. pt is awake and alert with no tremors or sweating. Does endorsed feeling more distented. OBJECTIVE: Vital Signs Period Temp Pulse Resp BP Sys/Phipps Pulse Ox Last 24 Hr 98 F-98.6 F 90-110 13-18 115-133/81-99 98 GENERAL: The patient is awake, alert, and fully oriented, in mild distress. HEAD: Normal with no signs of trauma. EYES: PERRL, extraocular movements intact, sclera icteric but improving, conjunctiva clear. No ptosis. LUNGS: Breath sounds equal, clear to auscultation bilaterally, no wheezes, no crackles, no accessory muscle use. HEART: Regular rate and rhythm, S1, S2 without murmur, rub or gallop. ABDOMEN: Soft, nontender,severely distended, active bowel sounds, no guarding, no rebound, no hepatosplenomegaly, no masses. EXTREMITIES: 2+ pulses, warm, well-perfused, no edema. Laboratory Results - last 24 hr 01/30/19 01/30/19 06:25 06:25 WBC 14.7 H RBC 3.14 L Hgb 11.0 L Hct 32.1 L MCV 102.2 H MCH 34.9 H MCHC 34.2 RDW 15.6 Plt Count 283 MPV 9.9 Sodium 133 L Potassium 3.2 L Chloride 96 L Carbon Dioxide 28 Anion Gap 8 BUN 10.3 Creatinine 0.6 Est GFR (CKD-EPI)AfAm 147.82 Est GFR (CKD-EPI)NonAf 127.55 Random Glucose 98 Calcium 8.4 L Phosphorus 3.0 Magnesium 1.8 Active Medications Generic Name Dose Route Start Last Admin Trade Name Freq PRN Reason Stop Dose Admin Chlorhexidine Gluconate 1 applic 01/16/19 22:00 01/29/19 21:28 Hibiclens For Decolonization - TP 1 applic HS [facility] Administration Folic Acid 1 mg 01/17/19 10:00 01/30/19 10:50 Folic Acid - PO 1 mg DAILY [facility] Administration Heparin Sodium (Porcine) 5,000 unit 01/27/19 22:00 01/30/19 14:11 Heparin - SQ 5,000 unit TID [facility] Administration Famotidine/Sodium Chloride 20 mg in 50 mls @ 100 mls/hr 01/24/19 10:45 10:50 Pepcid 20 Mg Premixed Ivpb - IVPB 100 mls/hr DAILY [facility] Administration Methadone HCl 40 mg/ Methadone 60 mg 01/29/19 06:00 01/30/19 06:27 HCl 20 mg PO 60 mg DAILY@0600 [facility] Administration Nystatin 1 applic 01/24/19 14:11 01/30/19 10:50 Mycostatin Cream - TP 1 applic BID [facility] Administration Rifaximin 550 mg 01/27/19 22:00 01/30/19 10:51 Xifaxan - PO 550 mg BID [facility] Administration Thiamine HCl 200 mg 01/22/19 10:00 01/30/19 14:11 Vitamin B1 Injection - IVPB 200 mg DAILY [facility] Administration ASSESSMENT/PLAN: 38M [facility] pt (etoh detox 01/15/19) PMH HTN, polysubstance abuse(1.5 pints vodka daily, on methadone) admitted to ICU for severe alcohol withdrawal with DT 's. Delirium Tremens Pt AAOx3 patient off sedation and extubated and breathing on NC c/w banana bag thiamine, folate, B12 f/u electrolytes , repleted as needed Aspiration precautions on Ativan PRN tolerating lactose free, low fat and low fiber diet Abdominal distension Worsening distension. Abdomen tempanic, BS active KUB showed ileus rectal tube placed and showed improvement. repeat KUB confirmed placement and decrease distention of bowel alcoholic hepatitis LFTs stable and trending down continue Rifaximin 550 BID monitor Rash minimal redness present as of today continuing topical nystatin cream BID DAMIAN, likely in setting of Type I (severe) hepatorenal syndrome Cr 0.6 stable [place], strict I/O- pt making adequate amount of urine. No NSAIDs Avoid contrast exposure Polysubstance abuse methadone 60mg FEN Dysphagia diet chopped DVT Hep subQ Visit type - Emergency Visit Emergency Visit: Yes ED Registration Date: 01/16/19 Care time: The patient presented to the Emergency Department on the above date and was hospitalized for further evaluation of their emergent condition. - New Patient This patient is new to me today: No - Critical Care Critical Care patient: Yes Total Critical Care Time (in minutes): 35 Critical Care Statement: The care of this patient involved high complexity decision making to prevent further life threatening deterioration of the patient 's condition and/or to evaluate & treat vital organ system(s) failure or risk of failure. - Discharge Referral Referred to [facility] No ATTENDING PHYSICIAN STATEMENT I saw and evaluated the patient. I reviewed the resident's note and discussed the case with the resident. I agree with the resident's findings and plan as documented. SUBJECTIVE: OBJECTIVE: ASSESSMENT AND PLAN:
--- NOTE | 2019-01-30 16:10 | PN ---
Teaching Attending Note Name of Resident: Yennifer Terrell ATTENDING PHYSICIAN STATEMENT I saw and evaluated the patient. I reviewed the resident's note and discussed the case with the resident. I agree with the resident's findings and plan as documented. SUBJECTIVE: Patient is in ICU has no new complains. OBJECTIVE: Vital Signs Temperature 98.4 F 01/30/19 06:00 Pulse Rate 95 H 01/30/19 06:00 Respiratory Rate 14 01/30/19 06:00 Blood Pressure 133/91 01/30/19 06:00 O2 Sat by Pulse Oximetry (%) 98 01/29/19 20:52 GENERAL: The patient is awake, alert, and fully oriented, in no acute distress. HEAD: Normal with no signs of trauma. EYES: PERRL, extraocular movements intact, sclera icteric, conjunctiva yellow. ENT: Ears normal, oropharynx clear without exudates, moist mucous membranes. NECK: Trachea midline, full range of motion, supple. LUNGS: Breath sounds equal, clear to auscultation bilaterally, no wheezes, no crackles, no accessory muscle use. HEART: Regular rate and rhythm, S1, S2 without murmur, rub or gallop. ABDOMEN: Soft, distented , rectal tube in place, normoactive bowel sounds, no guarding, no rebound, positive for hepatomegaly , no masses appreciated. EXTREMITIES: 2+ pulses, warm, well-perfused, no edema. NEUROLOGICAL: Cranial nerves II through XII grossly intact. Normal speech, gait is not observed. PSYCH: Normal mood, normal affect. SKIN: Warm, dry, normal turgor, no rashes or lesions noted CBCD WBC 14.7 K/mm3 (4.0-10.0) H 01/30/19 06:25 RBC 3.14 M/mm3 (4.00-5.60) L 01/30/19 06:25 Hgb 11.0 GM/dL (11.7-16.9) L 01/30/19 06:25 Hct 32.1 % (35.4-49) L 01/30/19 06:25 MCV 102.2 fl (80-96) H 01/30/19 06:25 MCHC 34.2 g/dl (32.0-35.9) 01/30/19 06:25 RDW 15.6 % (11.9-15.9) 01/30/19 06:25 Plt Count 283 K/MM3 (134-434) 01/30/19 06:25 MPV 9.9 fl (7.5-11.1) 01/30/19 06:25 CMP Sodium 133 mmol/L (136-145) L 01/30/19 06:25 Potassium 3.2 mmol/L (3.5-5.1) L 01/30/19 06:25 Chloride 96 mmol/L (98-107) L 01/30/19 06:25 Carbon Dioxide 28 mmol/L (21-32) 01/30/19 06:25 Anion Gap 8 MMOL/L (8-16) 01/30/19 06:25 BUN 10.3 mg/dL (7-18) 01/30/19 06:25 Creatinine 0.6 mg/dL (0.55-1.3) 01/30/19 06:25 Random Glucose 98 mg/dL (74-106) 01/30/19 06:25 Calcium 8.4 mg/dL (8.5-10.1) L 01/30/19 06:25 Total Bilirubin 7.5 mg/dL (0.2-1) H 01/29/19 05:50 AST 223 U/L (15-37) H 01/29/19 05:50 ALT 156 U/L (13-61) H 01/29/19 05:50 Alkaline Phosphatase 141 U/L (45-117) H 01/29/19 05:50 Total Protein 6.9 g/dl (6.4-8.2) 01/29/19 05:50 Albumin 2.1 g/dl (3.4-5.0) L 01/29/19 05:50 CARDIAC ENZYMES Creatine Kinase 301 U/L (26-308) 01/18/19 06:00 Troponin I < 0.02 ng/ml (0.00-0.05) 01/16/19 14:19 Current Medications Generic Name Dose Route Start Last Admin Trade Name Freq PRN Reason Stop Dose Admin Chlorhexidine Gluconate 1 applic 01/16/19 22:00 01/29/19 21:28 Hibiclens For Decolonization - TP 1 applic HS [facility] Administration Folic Acid 1 mg 01/17/19 10:00 01/30/19 10:50 Folic Acid - PO 1 mg DAILY [facility] Administration Heparin Sodium (Porcine) 5,000 unit 01/27/19 22:00 01/30/19 14:11 Heparin - SQ 5,000 unit TID [facility] Administration Famotidine/Sodium Chloride 20 mg in 50 mls @ 100 mls/hr 01/24/19 10:45 10:50 Pepcid 20 Mg Premixed Ivpb - IVPB 100 mls/hr DAILY [facility] Administration Methadone HCl 40 mg/ Methadone 60 mg 01/29/19 06:00 01/30/19 06:27 HCl 20 mg PO 60 mg DAILY@0600 [facility] Administration Nystatin 1 applic 01/24/19 14:11 01/30/19 10:50 Mycostatin Cream - TP 1 applic BID [facility] Administration Rifaximin 550 mg 01/27/19 22:00 01/30/19 10:51 Xifaxan - PO 550 mg BID [facility] Administration Thiamine HCl 200 mg 01/22/19 10:00 01/30/19 14:11 Vitamin B1 Injection - IVPB 200 mg DAILY [facility] Administration Home Medications Medication Instructions Recorded Methadone [Dolophine -] 120 mg PO DAILY 07/20/18 Amlodipine Besylate [Norvasc -] 10 mg PO DAILY #30 tablet 09/07/18 Methadone [Dolophine -] 120 mg PO DAILY 01/14/19 NK [No Known Home Medication] 01/14/19 AbXR: distended colon repeat ABxr; less distended , rectal tube in place ASSESSMENT AND PLAN: Patient is a 38yo man with h/o alcohol abuse, h/o opioid use with methadone maintenance who presented from [facility] with Dts. # s/p extubation / DTs /active alcohol withdrawel #s/p Acute Alcohol withdrawals: on thiamine and folate #Acute on Chronic Liver disease with Alcoholic hepatitis: continue to follow up bili, trending down # Hepatic encephalopathy improved #DAMIAN improved # Hyperbilirubinemia # acute transaminits improving # s/p DTs. # hepatic encephalopathy # Acute alcoholic hepatitis # drug rash vs fungal rash # Colonic ileus with distended abdomen reduced the dose of lactulose # -leukocytosis - s/p extubation. cont on 2 liter NC - reduce the dose of lactulose possible cause of the distention. rectal tube per GI ,less distended now - cont to monitor off Abx. no more fevers - swallow eval . Barium swallow - Monitor LFTS - cont nystatin to groin areas - [facility]. patient was started on methadone to titrate up to reach his 120 mg goal dose. last dose given in [facility] was 60 mg. will continue the current dose since has ileus - cont ativan PRN for agitation - add heparin sq - rectal tube , axr PT follow stool for C. Diff.
--- NOTE | 2019-01-30 17:16 | PN ---
Physical Exam: SUBJECTIVE: Patient seen and examined at bedside. pt has no acute complaints. pt states he is having BM OBJECTIVE: Vital Signs Period Temp Pulse Resp BP Sys/Phipps Pulse Ox Last 24 Hr 98 F-98.6 F 90-110 13-18 115-133/81-99 98 GENERAL: The patient is awake, alert, in no acute distress. pt is diaphoretic EYES: PERRL, extraocular movements intact, sclera icteric LUNGS: Breath sounds equal, clear to auscultation bilaterally, no accessory muscle use. HEART: Regular rate and rhythm, S1, S2 without murmur, rub or gallop. ABDOMEN: nontender, distended, tympanic on percussion, normoactive bowel sounds , no guarding EXTREMITIES: 2+ pulses, warm, well-perfused, no edema. Laboratory Results - last 24 hr 01/30/19 01/30/19 06:25 06:25 WBC 14.7 H RBC 3.14 L Hgb 11.0 L Hct 32.1 L MCV 102.2 H MCH 34.9 H MCHC 34.2 RDW 15.6 Plt Count 283 MPV 9.9 Sodium 133 L Potassium 3.2 L Chloride 96 L Carbon Dioxide 28 Anion Gap 8 BUN 10.3 Creatinine 0.6 Est GFR (CKD-EPI)AfAm 147.82 Est GFR (CKD-EPI)NonAf 127.55 Random Glucose 98 Calcium 8.4 L Phosphorus 3.0 Magnesium 1.8 Current Medications Chlorhexidine Gluconate (Hibiclens For Decolonization -) 1 applic TP HS [facility] Last Admin: 01/29/19 21:28 Dose: 1 applic Folic Acid (Folic Acid -) 1 mg PO DAILY [facility] Last Admin: 01/30/19 10:50 Dose: 1 mg Heparin Sodium (Porcine) (Heparin -) 5,000 unit SQ TID [facility] Last Admin: 01/30/19 14:11 Dose: 5,000 unit Famotidine/Sodium Chloride (Pepcid 20 Mg Premixed Ivpb -) 20 mg in 50 mls @ 100 mls/hr IVPB DAILY [facility] Last Admin: 01/30/19 10:50 Dose: 100 mls/hr Methadone HCl 40 mg/ Methadone (HCl 20 mg) 60 mg PO DAILY@0600 [facility] Last Admin: 01/30/19 06:27 Dose: 60 mg Nystatin (Mycostatin Cream -) 1 applic TP BID [facility] Last Admin: 01/30/19 10:50 Dose: 1 applic Rifaximin (Xifaxan -) 550 mg PO BID [facility] Last Admin: 01/30/19 10:51 Dose: 550 mg Thiamine HCl (Vitamin B1 Injection -) 200 mg IVPB DAILY [facility] Last Admin: 01/30/19 14:11 Dose: 200 mg ASSESSMENT/PLAN: 38M [facility] pt (etoh detox 01/15/19) PMH HTN, polysubstance abuse(1.5 pints vodka daily, on methadone) admitted to ICU for severe alcohol withdrawal with acute respiratory failure likely 2/2 DT's. Neuro : Acute alcohol withdrawal;Delirium Tremens -AAO X 3, off sedation Pulmonary : Acute respiratory failure 2/2 Alcoholic hepatitis - s/p extubation -saturating well on RA - given 60mg PO methadone daily GI : Acute liver failure likely 2/2 alcoholic hepatitis/Hepatic encephalopathy - downtrending transaminitis - c/w PO rifaximin - c/w thiamine, folate - Aspiration precautions, HOB elevation - c/w lactose free, low residue, low fiber, low carb chopped diet - KUB showing air in colon Renal : DAMIAN, likely 2/2 Type I (severe) hepatorenal syndrome - Urine studies: FeNa- 0.1 % - pt making adequate amount of urine. Heme - Thrombocytopenia - likely 2/2 cirrhosis, resolved. ID - Sputum Cx positive - UA 2+ LE and Nitrites - fever-resolved - off abx FENGI continue to follow lytes PPX - Heparin 5K TID Dispo: Patient can be transferred to med surg. Thank you for this consultative opportunity! Visit type - Emergency Visit Emergency Visit: No - New Patient This patient is new to me today: No - Critical Care Critical Care patient: Yes Total Critical Care Time (in minutes): 36 Critical Care Statement: The care of this patient involved high complexity decision making to prevent further life threatening deterioration of the patient 's condition and/or to evaluate & treat vital organ system(s) failure or risk of failure. ATTENDING PHYSICIAN STATEMENT I saw and evaluated the patient. I reviewed the resident's note and discussed the case with the resident. I agree with the resident's findings and plan as documented. SUBJECTIVE: OBJECTIVE: ASSESSMENT AND PLAN:
[2019-01-31] MEDS ORDERED: METHADONE HCL 10 MG TABLET ONE (06:16)
[2019-01-31] MEDS ORDERED: METHADONE HCL 40 MG DISPERSABLE TABLET ONE (06:16)
[2019-01-31] MEDS: METHADONE 40 MG, METHADONE 20 MG PO SCH (06:26)
[2019-01-31] MEDS: HEPARIN NA (PORCINE) 5,000 UNITS/ML 1ML VIAL SQ SCH ×3 (06:27→22:28)
[2019-01-31 07:28] LABS: BASO % 1.5 % (0-2.0); EOS % 6.5 % (0-4.5); HEMATOCRIT 31.7 % (35.4-49); HEMOGLOBIN 10.9 GM/dL (11.7-16.9); LYMPH % 15.6 % (8-40); MCH 35.2 pg (25.7-33.7); MCHC 34.4 g/dl (32.0-35.9); MEAN CELL VOLUME 102.3 fl (80-96); MEAN PLT VOLUME 9.6 fl (7.5-11.1); MONO % 9.6 % (3.8-10.2); NEUT % 66.8 % (42.8-82.8); PLATELET COUNT 279 K/MM3 (134-434); RDW 15.5 % (11.9-15.9); WHITE BLOOD COUNT 11.9 K/mm3 (4.0-10.0)
[2019-01-31 07:57] LABS: ALBUMIN 2.2 g/dl (3.4-5.0); BILIRUBIN,TOTAL 6.7 mg/dL (0.2-1); BLOOD UREA NITROGEN 9.7 mg/dL (7-18); CALCIUM 8.4 mg/dL (8.5-10.1); CREATININE 0.6 mg/dL (0.55-1.3); MAGNESIUM 1.9 mg/dL (1.8-2.4); PHOSPHOROUS 3.3 mg/dL (2.5-4.9); POTASSIUM 3.4 mmol/L (3.5-5.1); TOT PROT 7.2 g/dl (6.4-8.2)
--- NOTE | 2019-01-31 08:12 | PN.GI ---
GI Progress Note Subjective: patient without complaints this morning - Objective Vital Signs: Vital Signs Temperature 98.1 F 01/31/19 06:59 Pulse Rate 84 01/31/19 06:59 Respiratory Rate 18 01/31/19 06:59 Blood Pressure 124/81 01/31/19 06:59 O2 Sat by Pulse Oximetry (%) 97 01/30/19 20:55 Constitutional: Well Nourished, No Distress Eyes: Yes: WNL HENT: Yes: WNL Neck: Yes: WNL Cardiovascular: Yes: WNL Respiratory: Yes: WNL, Regular, CTA Bilaterally Gastrointestinal Inspection: Yes: Distention ...Auscultate: Yes: Normoactive Bowel Sounds, Other (tympanic ; not tender) Edema: No Labs: CBC, BMP 01/31/19 06:55 01/31/19 06:55 INR, PTT INR 1.13 (0.83-1.09) H 01/27/19 05:30 Problem List - Problems (1) Abdominal distension Assessment/Plan: - repeat axr ordered - rectal tube for decompression - keep electrolytes wnl -avoid narcotics - hold lactulose c/w rifaxamin - f/u c,diff - will f/u Code(s): R14.0 - ABDOMINAL DISTENSION (GASEOUS) (2) Alcoholic hepatitis Code(s): K70.10 - ALCOHOLIC HEPATITIS WITHOUT ASCITES Qualifiers: Ascites presence: without ascites Qualified Code(s): K70.10 - Alcoholic hepatitis without ascites (3) Delirium tremens Code(s): F10.231 - ALCOHOL DEPENDENCE WITH WITHDRAWAL DELIRIUM
[2019-01-31] MEDS: FAMOTIDINE 20 MG/50 ML IVPB 20 MG/50 ML MG IVPB SCH (10:28)
[2019-01-31] MEDS: FOLIC ACID 1 MG TABLET (FP) PO SCH (10:28)
[2019-01-31] MEDS: RIFAXIMIN 550 MG TABLET (UD) PO SCH ×2 (10:29→22:27)
[2019-01-31] MEDS: THIAMINE HCL 200 MG/2 ML VIAL IVPB SCH (10:29)
--- NOTE | 2019-01-31 14:56 | PN ---
Progress Note (short form) - Note Progress Note: Patient is feeling better. alert awake. Vital Signs Temperature 98.1 F 01/31/19 06:59 Pulse Rate 84 01/31/19 06:59 Respiratory Rate 18 01/31/19 06:59 Blood Pressure 124/81 01/31/19 06:59 O2 Sat by Pulse Oximetry (%) 97 01/30/19 20:55 GENERAL: The patient is awake, alert, and fully oriented, in no acute distress. HEAD: Normal with no signs of trauma. EYES: PERRL, extraocular movements intact, sclera icteric, conjunctiva yellow. ENT: Ears normal, oropharynx clear without exudates, moist mucous membranes. NECK: Trachea midline, full range of motion, supple. LUNGS: Breath sounds equal, clear to auscultation bilaterally, no wheezes, no crackles, no accessory muscle use. HEART: Regular rate and rhythm, S1, S2 without murmur, rub or gallop. ABDOMEN: Soft, distented , positive for rectal tube , normoactive bowel sounds , no guarding, no rebound, positive for hepatomegaly. EXTREMITIES: 2+ pulses, warm, well-perfused, no edema. NEUROLOGICAL: Cranial nerves II through XII grossly intact. Normal speech, gait is not observed. PSYCH: Normal mood, normal affect. SKIN: Warm, dry, normal turgor, positive for rashes at the area of the tapes CBCD WBC 11.9 K/mm3 (4.0-10.0) H 01/31/19 06:55 RBC 3.10 M/mm3 (4.00-5.60) L 01/31/19 06:55 Hgb 10.9 GM/dL (11.7-16.9) L 01/31/19 06:55 Hct 31.7 % (35.4-49) L 01/31/19 06:55 MCV 102.3 fl (80-96) H 01/31/19 06:55 MCHC 34.4 g/dl (32.0-35.9) 01/31/19 06:55 RDW 15.5 % (11.9-15.9) 01/31/19 06:55 Plt Count 279 K/MM3 (134-434) 01/31/19 06:55 MPV 9.6 fl (7.5-11.1) 01/31/19 06:55 CMP Sodium 135 mmol/L (136-145) L 01/31/19 06:55 Potassium 3.4 mmol/L (3.5-5.1) L 01/31/19 06:55 Chloride 98 mmol/L (98-107) 01/31/19 06:55 Carbon Dioxide 28 mmol/L (21-32) 01/31/19 06:55 Anion Gap 9 MMOL/L (8-16) 01/31/19 06:55 BUN 9.7 mg/dL (7-18) 01/31/19 06:55 Creatinine 0.6 mg/dL (0.55-1.3) 01/31/19 06:55 Random Glucose 93 mg/dL (74-106) 01/31/19 06:55 Calcium 8.4 mg/dL (8.5-10.1) L 01/31/19 06:55 Total Bilirubin 6.7 mg/dL (0.2-1) H 01/31/19 06:55 AST 206 U/L (15-37) H 01/31/19 06:55 ALT 167 U/L (13-61) H 01/31/19 06:55 Alkaline Phosphatase 136 U/L (45-117) H 01/31/19 06:55 Total Protein 7.2 g/dl (6.4-8.2) 01/31/19 06:55 Albumin 2.2 g/dl (3.4-5.0) L 01/31/19 06:55 CARDIAC ENZYMES Creatine Kinase 301 U/L (26-308) 01/18/19 06:00 Troponin I < 0.02 ng/ml (0.00-0.05) 01/16/19 14:19 Current Medications Generic Name Dose Route Start Last Admin Trade Name Lesterq PRN Reason Stop Dose Admin Folic Acid 1 mg 01/31/19 10:00 01/31/19 10:28 Folic Acid - PO 1 mg DAILY MIESHA Administration Heparin Sodium (Porcine) 5,000 unit 01/30/19 22:00 01/31/19 06:27 Heparin - SQ 5,000 unit TID MIESHA Administration Famotidine/Sodium Chloride 20 mg in 50 mls @ 100 mls/hr 01/31/19 10:00 10:28 Pepcid 20 Mg Premixed Ivpb - IVPB 100 mls/hr DAILY MIESHA Administration Methadone HCl 40 mg/ Methadone 60 mg 01/31/19 06:00 01/31/19 06:26 HCl 20 mg PO 60 mg DAILY@0600 MIESHA Administration Rifaximin 550 mg 01/30/19 22:00 01/31/19 10:29 Xifaxan - PO 550 mg BID MIESHA Administration Thiamine HCl 200 mg 01/31/19 10:00 01/31/19 10:29 Vitamin B1 Injection - IVPB 200 mg DAILY MIESHA Administration Home Medications Medication Instructions Recorded Methadone [Dolophine -] 120 mg PO DAILY 07/20/18 Amlodipine Besylate [Norvasc -] 10 mg PO DAILY #30 tablet 09/07/18 Methadone [Dolophine -] 120 mg PO DAILY 01/14/19 NK [No Known Home Medication] 01/14/19 AbXR: distended colon repeat ABxr; less distended , rectal tube in place ASSESSMENT AND PLAN: Patient is a 38yo man with h/o alcohol abuse, h/o opioid use with methadone maintenance who presented from [facility] with Dts. # s/p extubation / DTs /active alcohol withdrawel cont on 2 liter NC #s/p Acute Alcohol withdrawals: on thiamine and folate #Acute on Chronic Liver disease with Alcoholic hepatitis: continue to follow up bili, trending down # Hepatic encephalopathy improved #DAMIAN improved # Hyperbilirubinemia # acute transaminitis improving continue to follow # s/p DTs. # hepatic encephalopathy # Acute alcoholic hepatitis # drug rash vs fungal rash # Colonic ileus with distended abdomen reduced the dose of lactulose, rectal tube was placed by GI # leukocytosis # Groin rash cont nystatin - [facility] notes reviewed. patient was started on methadone to titrate up to reach his 120 mg goal dose. last dose given in [facility] was 60 mg. will continue the current dose since has ileus - cont ativan PRN for agitation - add heparin sq Visit type - Emergency Visit Emergency Visit: Yes ED Registration Date: 01/16/19 Care time: The patient presented to the Emergency Department on the above date and was hospitalized for further evaluation of their emergent condition. - New Patient This patient is new to me today: No - Critical Care Critical Care patient: No - Discharge Referral Referred to [facility] Med P.C.: No
[2019-01-31] MEDS ORDERED: PT OWN MED DRAWER 7, Y5N ONE (22:13)
[2019-02-01] MEDS ORDERED: METHADONE HCL 40 MG DISPERSABLE TABLET ONE (05:25)
[2019-02-01] MEDS ORDERED: METHADONE HCL 10 MG TABLET ONE (05:26)
[2019-02-01] MEDS: METHADONE 40 MG, METHADONE 20 MG PO SCH (05:39)
[2019-02-01] MEDS: HEPARIN NA (PORCINE) 5,000 UNITS/ML 1ML VIAL SQ SCH ×3 (05:39→22:16)
--- NOTE | 2019-02-01 07:46 | PN.GI ---
GI Progress Note Subjective: status unchanged - pulled out rectal tube yesterday - now has agreed to insertion of the tube. As per RN no changes - Objective Vital Signs: Vital Signs Temperature 98.1 F 02/01/19 06:00 Pulse Rate 93 H 02/01/19 06:00 Respiratory Rate 18 02/01/19 06:00 Blood Pressure 122/76 02/01/19 06:00 O2 Sat by Pulse Oximetry (%) 98 01/31/19 21:00 Constitutional: Well Nourished, No Distress, Calm Eyes: Yes: WNL HENT: Yes: WNL Neck: Yes: WNL Cardiovascular: Yes: WNL, Regular Rate and Rhythm Respiratory: Yes: WNL, Regular, CTA Bilaterally Gastrointestinal Inspection: Yes: Distention ...Percussion: Yes: Tympanitic, Other (not tender) Extremities: Yes: WNL Edema: No Labs: CBC, BMP 01/31/19 06:55 01/31/19 06:55 INR, PTT INR 1.13 (0.83-1.09) H 01/27/19 05:30 Problem List - Problems (1) Abdominal distension Assessment/Plan: Ct scan reviewed with radiology - appears to be an ileus NOT a volvulus - rectal tube for decompression - repeat axr ordered for tomorrow morning - hold lactulose - c/w rifaximin - monitor electrolytes and lft - oob to chair / encourage to lie on the side. Code(s): R14.0 - ABDOMINAL DISTENSION (GASEOUS) (2) Alcoholic hepatitis Code(s): K70.10 - ALCOHOLIC HEPATITIS WITHOUT ASCITES Qualifiers: Ascites presence: without ascites Qualified Code(s): K70.10 - Alcoholic hepatitis without ascites (3) Delirium tremens Code(s): F10.231 - ALCOHOL DEPENDENCE WITH WITHDRAWAL DELIRIUM
[2019-02-01] MEDS: FAMOTIDINE 20 MG/50 ML IVPB 20 MG/50 ML MG IVPB SCH (09:10)
[2019-02-01 09:30] LABS: BASO % 1.1 % (0-2.0); EOS % 8.5 % (0-4.5); HEMATOCRIT 32.3 % (35.4-49); HEMOGLOBIN 10.9 GM/dL (11.7-16.9); LYMPH % 13.2 % (8-40); MCHC 33.9 g/dl (32.0-35.9); MEAN CELL VOLUME 103.1 fl (80-96); MEAN PLT VOLUME 9.6 fl (7.5-11.1); MONO % 8.2 % (3.8-10.2); PLATELET COUNT 293 K/MM3 (134-434); RBC 3.13 M/mm3 (4.00-5.60); RDW 15.9 % (11.9-15.9); WHITE BLOOD COUNT 13.2 K/mm3 (4.0-10.0)
[2019-02-01] MEDS: THIAMINE HCL 200 MG/2 ML VIAL IVPB SCH (09:55)
[2019-02-01 10:09] LABS: ALBUMIN 2.4 g/dl (3.4-5.0); BILIRUBIN,TOTAL 6.2 mg/dL (0.2-1); BLOOD UREA NITROGEN 8.9 mg/dL (7-18); CALCIUM 8.7 mg/dL (8.5-10.1); CREATININE 0.6 mg/dL (0.55-1.3); POTASSIUM 3.3 mmol/L (3.5-5.1); TOT PROT 7.5 g/dl (6.4-8.2)
[2019-02-01] MEDS: RIFAXIMIN 550 MG TABLET (UD) PO SCH ×2 (10:45→22:16)
[2019-02-01] MEDS: FOLIC ACID 1 MG TABLET (FP) PO SCH (10:45)
--- NOTE | 2019-02-01 12:43 | PN ---
Physical Exam: SUBJECTIVE: Patient seen and examined. Pt offered no complaints. OBJECTIVE: Vital Signs Period Temp Pulse Resp BP Sys/Phipps Pulse Ox Last 24 Hr 97.7 F-99.2 F 75-102 18-18 111-148/48-82 98-98 GENERAL: The patient is awake, alert, and fully oriented, in no distress. HEAD: Normal with no signs of trauma. EYES: PERRL, extraocular movements intact, sclera icteric but improving, conjunctiva clear. No ptosis. LUNGS: Breath sounds equal, clear to auscultation bilaterally, no wheezes, no crackles, no accessory muscle use. HEART: Regular rate and rhythm, S1, S2 without murmur, rub or gallop. ABDOMEN: Soft, nontender,severely distended, active bowel sounds, no guarding, no rebound, no hepatosplenomegaly, no masses. EXTREMITIES: 2+ pulses, warm, well-perfused, no edema. Laboratory Results - last 24 hr 02/01/19 02/01/19 09:00 09:00 WBC 13.2 H RBC 3.13 L Hgb 10.9 L Hct 32.3 L MCV 103.1 H MCH 35.0 H MCHC 33.9 RDW 15.9 Plt Count 293 MPV 9.6 Absolute Neuts (auto) 9.1 H Neutrophils % 69.0 Lymphocytes % 13.2 Monocytes % 8.2 Eosinophils % 8.5 H Basophils % 1.1 Nucleated RBC % 0 Sodium 134 L Potassium 3.3 L Chloride 98 Carbon Dioxide 28 Anion Gap 9 BUN 8.9 Creatinine 0.6 Est GFR (CKD-EPI)AfAm 147.82 Est GFR (CKD-EPI)NonAf 127.55 Random Glucose 97 Calcium 8.7 Total Bilirubin 6.2 H AST 201 H ALT 168 H Alkaline Phosphatase 135 H Total Protein 7.5 Albumin 2.4 L Active Medications Generic Name Dose Route Start Last Admin Trade Name Freq PRN Reason Stop Dose Admin Folic Acid 1 mg 02/02/19 10:00 Folic Acid - PO DAILY MIESHA Heparin Sodium (Porcine) 5,000 unit 01/30/19 22:00 02/01/19 05:39 Heparin - SQ 5,000 unit TID MIESHA Administration Famotidine/Sodium Chloride 20 mg in 50 mls @ 100 mls/hr 01/31/19 10:00 09/29/ 19 09:10 Pepcid 20 Mg Premixed Ivpb - IVPB 100 mls/hr DAILY MIESHA Administration Methadone HCl 40 mg/ Methadone 60 mg 01/31/19 06:00 02/01/19 05:39 HCl 20 mg PO 60 mg DAILY@0600 MIESHA Administration Rifaximin 550 mg 01/30/19 22:00 02/01/19 10:45 Xifaxan - PO 550 mg BID MIESHA Administration Thiamine HCl 200 mg 01/31/19 10:00 02/01/19 09:55 Vitamin B1 Injection - IVPB 200 mg DAILY MIESHA Administration ASSESSMENT/PLAN: 38M [facility] pt (etoh detox 01/15/19) PMH HTN, polysubstance abuse(1.5 pints vodka daily, on methadone) admitted to ICU for severe alcohol withdrawal with DT 's. Delirium Tremens Pt AAOx3 patient off sedation and extubated and breathing on NC thiamine, folate f/u electrolytes , repleted as needed Aspiration precautions NPO except for medications Abdominal distension distension present but improved. Abdomen tympanic, BS active KUB showed ileus rectal tube placed and showed improvement. repeat KUB confirmed placement and decrease distention of bowel OFF lactulose to reduce gas production and worsening distension Per GI rec,CT abdomen and pelvis with contrast for further evaluation alcoholic hepatitis LFTs stable and trending down continue Rifaximin 550 BID monitor Rash in GROIN minimal redness present as of today continuing topical nystatin cream BID AND GENERALIZED RASH (NEW) POSSIBLE TAPE ALLERGY started hydrocortisone cream 0.5% daily DAMIAN, likely in setting of Type I (severe) hepatorenal syndrome Cr 0.6 stable pt making adequate amount of urine. No NSAIDs Avoid contrast exposure Polysubstance abuse methadone 60mg FEN NPO except for meds DVT Hep subQ Visit type - Emergency Visit Emergency Visit: Yes ED Registration Date: 01/16/19 Care time: The patient presented to the Emergency Department on the above date and was hospitalized for further evaluation of their emergent condition. - New Patient This patient is new to me today: No - Critical Care Critical Care patient: No - Discharge Referral Referred to [facility] Med P.C.: No ATTENDING PHYSICIAN STATEMENT I saw and evaluated the patient. I reviewed the resident's note and discussed the case with the resident. I agree with the resident's findings and plan as documented. SUBJECTIVE: OBJECTIVE: ASSESSMENT AND PLAN:
--- NOTE | 2019-02-01 13:25 | PN ---
Teaching Attending Note Name of Resident: Yennifer Terrell ATTENDING PHYSICIAN STATEMENT I saw and evaluated the patient. I reviewed the resident's note and discussed the case with the resident. I agree with the resident's findings and plan as documented. SUBJECTIVE: Patient is feeling better. No acute distress OBJECTIVE: Vital Signs Temperature 99.2 F 02/01/19 09:59 Pulse Rate 97 H 02/01/19 09:59 Respiratory Rate 18 02/01/19 09:59 Blood Pressure 122/76 02/01/19 09:59 O2 Sat by Pulse Oximetry (%) 98 02/01/19 09:00 GENERAL: The patient is awake, alert, and fully oriented, in no acute distress. HEAD: Normal with no signs of trauma. EYES: PERRL, extraocular movements intact, sclera icteric, conjunctiva yellow. ENT: Ears normal, oropharynx clear without exudates, moist mucous membranes. NECK: Trachea midline, full range of motion, supple. LUNGS: Breath sounds equal, clear to auscultation bilaterally, no wheezes, no crackles, no accessory muscle use. HEART: Regular rate and rhythm, S1, S2 without murmur, rub or gallop. ABDOMEN: Soft, distented , patient pulled the rectal tube , normoactive bowel sounds, no guarding, no rebound, positive for hepatomegaly. EXTREMITIES: 2+ pulses, warm, well-perfused, no edema. NEUROLOGICAL: Cranial nerves II through XII grossly intact. Normal speech, gait is not observed. PSYCH: Normal mood, normal affect. SKIN: Warm, dry, normal turgor, positive for rashes at the area of the tapes CBCD WBC 13.2 K/mm3 (4.0-10.0) H 02/01/19 09:00 RBC 3.13 M/mm3 (4.00-5.60) L 02/01/19 09:00 Hgb 10.9 GM/dL (11.7-16.9) L 02/01/19 09:00 Hct 32.3 % (35.4-49) L 02/01/19 09:00 MCV 103.1 fl (80-96) H 02/01/19 09:00 MCHC 33.9 g/dl (32.0-35.9) 02/01/19 09:00 RDW 15.9 % (11.9-15.9) 02/01/19 09:00 Plt Count 293 K/MM3 (134-434) 02/01/19 09:00 MPV 9.6 fl (7.5-11.1) 02/01/19 09:00 CMP Sodium 134 mmol/L (136-145) L 02/01/19 09:00 Potassium 3.3 mmol/L (3.5-5.1) L 02/01/19 09:00 Chloride 98 mmol/L (98-107) 02/01/19 09:00 Carbon Dioxide 28 mmol/L (21-32) 02/01/19 09:00 Anion Gap 9 MMOL/L (8-16) 02/01/19 09:00 BUN 8.9 mg/dL (7-18) 02/01/19 09:00 Creatinine 0.6 mg/dL (0.55-1.3) 02/01/19 09:00 Random Glucose 97 mg/dL (74-106) 02/01/19 09:00 Calcium 8.7 mg/dL (8.5-10.1) 02/01/19 09:00 Total Bilirubin 6.2 mg/dL (0.2-1) H 02/01/19 09:00 AST 201 U/L (15-37) H 02/01/19 09:00 ALT 168 U/L (13-61) H 02/01/19 09:00 Alkaline Phosphatase 135 U/L (45-117) H 02/01/19 09:00 Total Protein 7.5 g/dl (6.4-8.2) 02/01/19 09:00 Albumin 2.4 g/dl (3.4-5.0) L 02/01/19 09:00 CARDIAC ENZYMES Creatine Kinase 301 U/L (26-308) 01/18/19 06:00 Troponin I < 0.02 ng/ml (0.00-0.05) 01/16/19 14:19 Current Medications Generic Name Dose Route Start Last Admin Trade Name Freq PRN Reason Stop Dose Admin Folic Acid 1 mg 02/02/19 10:00 Folic Acid - PO DAILY MIESHA Heparin Sodium (Porcine) 5,000 unit 01/30/19 22:00 02/01/19 05:39 Heparin - SQ 5,000 unit TID MIESHA Administration Famotidine/Sodium Chloride 20 mg in 50 mls @ 100 mls/hr 01/31/19 10:00 09:10 Pepcid 20 Mg Premixed Ivpb - IVPB 100 mls/hr DAILY MIESHA Administration Methadone HCl 40 mg/ Methadone 60 mg 01/31/19 06:00 02/01/19 05:39 HCl 20 mg PO 60 mg DAILY@0600 MIESHA Administration Rifaximin 550 mg 01/30/19 22:00 02/01/19 10:45 Xifaxan - PO 550 mg BID MIESHA Administration Thiamine HCl 200 mg 01/31/19 10:00 02/01/19 09:55 Vitamin B1 Injection - IVPB 200 mg DAILY MIESHA Administration Home Medications Medication Instructions Recorded Methadone [Dolophine -] 120 mg PO DAILY 07/20/18 Amlodipine Besylate [Norvasc -] 10 mg PO DAILY #30 tablet 09/07/18 Methadone [Dolophine -] 120 mg PO DAILY 01/14/19 NK [No Known Home Medication] 01/14/19 AbXR: distended colon repeat ABxr; less distended , rectal tube in place ASSESSMENT AND PLAN: Patient is a 38yo man with h/o alcohol abuse, h/o opioid use with methadone maintenance who presented from [facility] with Dts. # s/p extubation / DTs /active alcohol withdrawel cont on 2 liter NC #s/p Acute Alcohol withdrawals: on thiamine and folate #Acute on Chronic Liver disease with Alcoholic hepatitis: continue to follow up bili, trending down # Hepatic encephalopathy improved #DAMIAN improved # Hyperbilirubinemia improving, trending down # acute transaminitis improving continue to follow # hepatic encephalopathy improved continue to monitor # Acute alcoholic hepatitis # Colonic ileus with distended abdomen reduced the dose of lactulose, rectal tube was placed by GI # leukocytosis trending up, continue to follow # Groin rash cont nystatin - [facility] notes reviewed. patient was started on methadone to titrate up to reach his 120 mg goal dose. last dose given in [facility] was 60 mg. will continue the current dose since has ileus - cont ativan PRN for agitation - add heparin sq plan discharging the patient possible in am if stable
[2019-02-01] MEDS ORDERED: PT OWN MED DRAWER 7, Y5N ONE (21:32)
[2019-02-02] MEDS ORDERED: METHADONE HCL 10 MG TABLET ONE (05:05)
[2019-02-02] MEDS ORDERED: METHADONE HCL 40 MG DISPERSABLE TABLET ONE (05:05)
[2019-02-02] MEDS: METHADONE 40 MG, METHADONE 20 MG PO SCH (05:28)
[2019-02-02] MEDS: HEPARIN NA (PORCINE) 5,000 UNITS/ML 1ML VIAL SQ SCH ×3 (05:28→21:21)
[2019-02-02 08:17] LABS: BASO % 1.4 % (0-2.0); EOS % 11.2 % (0-4.5); HEMATOCRIT 31.5 % (35.4-49); HEMOGLOBIN 10.7 GM/dL (11.7-16.9); LYMPH % 13.8 % (8-40); MCH 35.1 pg (25.7-33.7); MCHC 33.9 g/dl (32.0-35.9); MEAN CELL VOLUME 103.6 fl (80-96); MEAN PLT VOLUME 9.8 fl (7.5-11.1); MONO % 7.5 % (3.8-10.2); NEUT % 66.1 % (42.8-82.8); PLATELET COUNT 275 K/MM3 (134-434); RBC 3.04 M/mm3 (4.00-5.60); RDW 15.6 % (11.9-15.9); WHITE BLOOD COUNT 12.9 K/mm3 (4.0-10.0)
[2019-02-02 08:54] LABS: ALBUMIN 2.3 g/dl (3.4-5.0); BILIRUBIN,TOTAL 5.6 mg/dL (0.2-1); BLOOD UREA NITROGEN 7.3 mg/dL (7-18); CALCIUM 8.3 mg/dL (8.5-10.1); CREATININE 0.6 mg/dL (0.55-1.3); MAGNESIUM 1.9 mg/dL (1.8-2.4); POTASSIUM 3.7 mmol/L (3.5-5.1)
[2019-02-02] MEDS ORDERED: HYDROCORTISONE 0.5% TOPICAL OINTMENT TUBE TP PRN ×2 (09:12→09:19)
[2019-02-02] MEDS: FAMOTIDINE 20 MG/50 ML IVPB 20 MG/50 ML MG IVPB SCH (10:40)
[2019-02-02] MEDS: FOLIC ACID 1 MG TABLET (FP) PO SCH (11:31)
[2019-02-02] MEDS: THIAMINE HCL 200 MG/2 ML VIAL IVPB SCH (11:31)
[2019-02-02] MEDS: RIFAXIMIN 550 MG TABLET (UD) PO SCH ×2 (11:31→21:21)
[2019-02-02] MEDS ORDERED: HYDROCORTISONE 0.5% TOPICAL CREAM 30 GM TUBE TP PRN (13:42)
--- NOTE | 2019-02-02 14:23 | PN ---
Teaching Attending Note Name of Resident: Yennifer Terrell ATTENDING PHYSICIAN STATEMENT I saw and evaluated the patient. I reviewed the resident's note and discussed the case with the resident. I agree with the resident's findings and plan as documented. SUBJECTIVE: Patient is feeling better, no acute distress. No fever or chills. comfortbale with no acute distress. OBJECTIVE: Vital Signs Temperature 98.6 F 02/02/19 14:03 Pulse Rate 79 02/02/19 14:03 Respiratory Rate 20 02/02/19 14:03 Blood Pressure 126/74 02/02/19 14:03 O2 Sat by Pulse Oximetry (%) 97 02/02/19 09:00 GENERAL: The patient is awake, alert, and fully oriented, in no acute distress. HEAD: Normal with no signs of trauma. EYES: PERRL, extraocular movements intact, sclera icteric, conjunctiva yellow. ENT: Ears normal, oropharynx clear without exudates, moist mucous membranes. NECK: Trachea midline, full range of motion, supple. LUNGS: Breath sounds equal, clear to auscultation bilaterally, no wheezes, no crackles, no accessory muscle use. HEART: Regular rate and rhythm, S1, S2 without murmur, rub or gallop. ABDOMEN: Soft, distented , patient pulled the rectal tube , normoactive bowel sounds, no guarding, no rebound, positive for hepatomegaly. rectal tube EXTREMITIES: 2+ pulses, warm, well-perfused, no edema. NEUROLOGICAL: Cranial nerves II through XII grossly intact. Normal speech, gait is not observed. PSYCH: Normal mood, normal affect. SKIN: Warm, dry, normal turgor, positive for rashes at the area of the tapes CBCD WBC 12.9 K/mm3 (4.0-10.0) H 02/02/19 07:23 RBC 3.04 M/mm3 (4.00-5.60) L 02/02/19 07:23 Hgb 10.7 GM/dL (11.7-16.9) L 02/02/19 07:23 Hct 31.5 % (35.4-49) L 02/02/19 07:23 MCV 103.6 fl (80-96) H 02/02/19 07:23 MCHC 33.9 g/dl (32.0-35.9) 02/02/19 07:23 RDW 15.6 % (11.9-15.9) 02/02/19 07:23 Plt Count 275 K/MM3 (134-434) 02/02/19 07:23 MPV 9.8 fl (7.5-11.1) 02/02/19 07:23 CMP Sodium 137 mmol/L (136-145) 02/02/19 07:23 Potassium 3.7 mmol/L (3.5-5.1) 02/02/19 07:23 Chloride 101 mmol/L (98-107) 02/02/19 07:23 Carbon Dioxide 29 mmol/L (21-32) 02/02/19 07:23 Anion Gap 7 MMOL/L (8-16) L 02/02/19 07:23 BUN 7.3 mg/dL (7-18) 02/02/19 07:23 Creatinine 0.6 mg/dL (0.55-1.3) 02/02/19 07:23 Random Glucose 74 mg/dL (74-106) 02/02/19 07:23 Calcium 8.3 mg/dL (8.5-10.1) L 02/02/19 07:23 Total Bilirubin 5.6 mg/dL (0.2-1) H 02/02/19 07:23 AST 184 U/L (15-37) H 02/02/19 07:23 ALT 153 U/L (13-61) H 02/02/19 07:23 Alkaline Phosphatase 122 U/L (45-117) H 02/02/19 07:23 Total Protein 7.0 g/dl (6.4-8.2) 02/02/19 07:23 Albumin 2.3 g/dl (3.4-5.0) L 02/02/19 07:23 CARDIAC ENZYMES Creatine Kinase 301 U/L (26-308) 01/18/19 06:00 Troponin I < 0.02 ng/ml (0.00-0.05) 01/16/19 14:19 Current Medications Generic Name Dose Route Start Last Admin Trade Name Lesterq PRN Reason Stop Dose Admin Folic Acid 1 mg 02/02/19 10:00 02/02/19 11:31 Folic Acid - PO 1 mg DAILY MIESHA Administration Heparin Sodium (Porcine) 5,000 unit 01/30/19 22:00 02/02/19 05:28 Heparin - SQ 5,000 unit TID MIESHA Administration Hydrocortisone 1 applic 02/02/19 13:42 Hytone 0.5% Cream - TP BID PRN ALLERGIES Famotidine/Sodium Chloride 20 mg in 50 mls @ 100 mls/hr 01/31/19 10:00 10:40 Pepcid 20 Mg Premixed Ivpb - IVPB 100 mls/hr DAILY MIESHA Administration Methadone HCl 40 mg/ Methadone 60 mg 01/31/19 06:00 02/02/19 05:28 HCl 20 mg PO 60 mg DAILY@0600 MIESHA Administration Rifaximin 550 mg 01/30/19 22:00 02/02/19 11:31 Xifaxan - PO 550 mg BID MIESHA Administration Thiamine HCl 200 mg 01/31/19 10:00 02/02/19 11:31 Vitamin B1 Injection - IVPB 200 mg DAILY MIESHA Administration Home Medications Medication Instructions Recorded Methadone [Dolophine -] 120 mg PO DAILY 07/20/18 Amlodipine Besylate [Norvasc -] 10 mg PO DAILY #30 tablet 09/07/18 Methadone [Dolophine -] 120 mg PO DAILY 01/14/19 NK [No Known Home Medication] 01/14/19 AbXR: distended colon repeat ABxr; less distended , rectal tube in place abdominal CT: Dilatation of colon secondary to ileus. reviewed ASSESSMENT AND PLAN: Patient is a 38yo man with h/o alcohol abuse, h/o opioid use with methadone maintenance who presented from [facility] with Dts. # Abdominal dilatation/ileus; post rectal tube improved , do not increase the methadone dose since patient has ileus. # s/p extubation / DTs /active alcohol withdrawel cont on 2 liter NC #s/p Acute Alcohol withdrawals: on thiamine and folate continue #Acute on Chronic Liver disease /Alcoholic hepatitis: continue to follow up bili , trending down # Hepatic encephalopathy improved #DAMIAN improved # Hyperbilirubinemia improving, trending down # acute transaminitis improving continue to follow # hepatic encephalopathy improved continue to monitor # Colonic ileus with distended abdomen reduced the dose of lactulose, rectal tube was placed by GI # leukocytosis trending down continue to monitor # Groin rash cont nystatin cont ativan PRN for agitation add heparin sq plan discharging the patient possible when stable
--- NOTE | 2019-02-02 15:18 | PN ---
Physical Exam: SUBJECTIVE: Patient seen and examined. No acute complaints. OBJECTIVE: Vital Signs Period Temp Pulse Resp BP Sys/Phipps Pulse Ox Last 24 Hr 97.8 F-99.0 F 73-90 18-20 102-129/60-87 97-97 GENERAL: The patient is awake, alert, and fully oriented, in no acute distress. HEAD: Normal with no signs of trauma. EYES: PERRL, extraocular movements intact, sclera anicteric, conjunctiva clear. No ptosis. ENT: Ears normal, nares patent, oropharynx clear without exudates, moist mucous membranes. NECK: Trachea midline, full range of motion, supple. LUNGS: Breath sounds equal, clear to auscultation bilaterally, no wheezes, no crackles, no accessory muscle use. HEART: Regular rate and rhythm, S1, S2 without murmur, rub or gallop. ABDOMEN: Soft, nontender, nondistended, normoactive bowel sounds, no guarding, no rebound, no hepatosplenomegaly, no masses. EXTREMITIES: 2+ pulses, warm, well-perfused, no edema. NEUROLOGICAL: Cranial nerves II through XII grossly intact. Normal speech, gait not observed. PSYCH: Normal mood, normal affect. SKIN: Warm, dry, normal turgor, no rashes or lesions noted Laboratory Results - last 24 hr 02/02/19 02/02/19 07:23 07:23 WBC 12.9 H RBC 3.04 L Hgb 10.7 L Hct 31.5 L MCV 103.6 H MCH 35.1 H MCHC 33.9 RDW 15.6 Plt Count 275 MPV 9.8 Absolute Neuts (auto) 8.5 H Neutrophils % 66.1 Lymphocytes % 13.8 Monocytes % 7.5 Eosinophils % 11.2 H Basophils % 1.4 Nucleated RBC % 0 Sodium 137 Potassium 3.7 Chloride 101 Carbon Dioxide 29 Anion Gap 7 L BUN 7.3 Creatinine 0.6 Est GFR (CKD-EPI)AfAm 147.82 Est GFR (CKD-EPI)NonAf 127.55 Random Glucose 74 Calcium 8.3 L Phosphorus 4.0 Magnesium 1.9 Total Bilirubin 5.6 H AST 184 H ALT 153 H Alkaline Phosphatase 122 H Total Protein 7.0 Albumin 2.3 L Active Medications Generic Name Dose Route Start Last Admin Trade Name Freq PRN Reason Stop Dose Admin Folic Acid 1 mg 02/02/19 10:00 02/02/19 11:31 Folic Acid - PO 1 mg DAILY MIESHA Administration Heparin Sodium (Porcine) 5,000 unit 01/30/19 22:00 02/02/19 14:50 Heparin - SQ 5,000 unit TID MIESHA Administration Hydrocortisone 1 applic 02/02/19 13:42 Hytone 0.5% Cream - TP BID PRN ALLERGIES Famotidine/Sodium Chloride 20 mg in 50 mls @ 100 mls/hr 01/31/19 10:00 10:40 Pepcid 20 Mg Premixed Ivpb - IVPB 100 mls/hr DAILY MIESHA Administration Methadone HCl 40 mg/ Methadone 60 mg 01/31/19 06:00 02/02/19 05:28 HCl 20 mg PO 60 mg DAILY@0600 MIESHA Administration Rifaximin 550 mg 01/30/19 22:00 02/02/19 11:31 Xifaxan - PO 550 mg BID MIESHA Administration Thiamine HCl 200 mg 01/31/19 10:00 02/02/19 11:31 Vitamin B1 Injection - IVPB 200 mg DAILY MIESHA Administration ASSESSMENT/PLAN: 38M [facility] pt (etoh detox 01/15/19) PMH HTN, polysubstance abuse(1.5 pints vodka daily, on methadone) admitted to ICU for severe alcohol withdrawal with DT 's. Delirium Tremens Pt AAOx3 patient off sedation and extubated and stable thiamine, folate f/u electrolytes , repleted as needed Aspiration precautions NPO except for medications Abdominal distension distension present but improved. Abdomen tympanic, BS active rectal tube placed and showed improvement. OFF lactulose to reduce gas production and distension CT abdomen and pelvis with contrast confirmed ileus with early torsion or rotation not ruled out Abdominal Xray repeat pending alcoholic hepatitis LFTs stable and trending down continue Rifaximin 550 BID monitor AND GENERALIZED RASH (NEW) POSSIBLE TAPE ALLERGY started hydrocortisone cream 0.5% daily DAMIAN, likely in setting of Type I (severe) hepatorenal syndrome Cr 0.6 stable No NSAIDs Avoid contrast exposure Polysubstance abuse methadone 60mg FEN NPO except for meds DVT Hep subQ Visit type - Emergency Visit Emergency Visit: Yes ED Registration Date: 01/16/19 Care time: The patient presented to the Emergency Department on the above date and was hospitalized for further evaluation of their emergent condition. - New Patient This patient is new to me today: No - Critical Care Critical Care patient: No - Discharge Referral Referred to [facility] Med P.C.: No ATTENDING PHYSICIAN STATEMENT I saw and evaluated the patient. I reviewed the resident's note and discussed the case with the resident. I agree with the resident's findings and plan as documented. SUBJECTIVE: OBJECTIVE: ASSESSMENT AND PLAN:
--- NOTE | 2019-02-02 16:11 | PN ---
Progress Note (short form) - Note Progress Note: GI f/u Over weekend noted to have abdominal distension with cecum on CT to 12cm. Had rectal tube placed. AXR today with contrast in colon, appears improved. patient states he is passing gas. Vital Signs Temp 98.6 F 02/02/19 14:03 Pulse 79 02/02/19 14:03 Resp 20 02/02/19 14:03 BP 126/74 02/02/19 14:03 Pulse Ox 97 02/02/19 09:00 NAD Abdomen mildly distended, diffuse rash overlying abdomen Rectal tube in place CBC, BMP 02/02/19 07:23 02/02/19 07:23 Hepatic Panel Total Bilirubin 5.6 mg/dL (0.2-1) H 02/02/19 07:23 Direct Bilirubin 10.5 mg/dL (0.0-0.2) H 01/20/19 05:45 AST 184 U/L (15-37) H 02/02/19 07:23 ALT 153 U/L (13-61) H 02/02/19 07:23 Alkaline Phosphatase 122 U/L (45-117) H 02/02/19 07:23 Albumin 2.3 g/dl (3.4-5.0) L 02/02/19 07:23 1. Colonic pseudo-obstruction - improved with rectal decompression. Continue rectal tube. Replete electrolytes - K>4 and Mg >2. Can give patient clears if he wants. 2. ETOH hepatitis - slowly improving.
[2019-02-02] MEDS ORDERED: PT OWN MED DRAWER 7, Y5N ONE (21:13)
[2019-02-02] MEDS ORDERED: MELATONIN 5 MG TABLETS PO ONE (23:40)
[2019-02-03] MEDS ORDERED: METHADONE HCL 10 MG TABLET ONE (05:46)
[2019-02-03] MEDS ORDERED: METHADONE HCL 40 MG DISPERSABLE TABLET ONE (05:46)
[2019-02-03] MEDS: METHADONE 40 MG, METHADONE 20 MG PO SCH (05:51)
[2019-02-03] MEDS: HEPARIN NA (PORCINE) 5,000 UNITS/ML 1ML VIAL SQ SCH ×3 (05:51→21:58)
[2019-02-03] MEDS ORDERED: POTASSIUM CHLORIDE ORAL LIQUID 20 MEQ/15 ML PO ONE (06:39)
[2019-02-03] MEDS ORDERED: MAGNESIUM SULF 50% (8.12 MEQ/2 ML-1 GM VIAL) IVPB ONE (06:40)
[2019-02-03 07:11] LABS: BASO % 0.8 % (0-2.0); EOS % 16.7 % (0-4.5); HEMATOCRIT 30.3 % (35.4-49); HEMOGLOBIN 10.3 GM/dL (11.7-16.9); LYMPH % 15.8 % (8-40); MCH 35.6 pg (25.7-33.7); MEAN CELL VOLUME 104.6 fl (80-96); MEAN PLT VOLUME 9.5 fl (7.5-11.1); MONO % 11.8 % (3.8-10.2); NEUT % 54.9 % (42.8-82.8); PLATELET COUNT 244 K/MM3 (134-434); WHITE BLOOD COUNT 9.9 K/mm3 (4.0-10.0)
[2019-02-03 07:42] LABS: ALBUMIN 2.2 g/dl (3.4-5.0); BILIRUBIN,TOTAL 5.1 mg/dL (0.2-1); BLOOD UREA NITROGEN 6.1 mg/dL (7-18); CALCIUM 8.3 mg/dL (8.5-10.1); CREATININE 0.5 mg/dL (0.55-1.3); MAGNESIUM 1.8 mg/dL (1.8-2.4); POTASSIUM 3.7 mmol/L (3.5-5.1); TOT PROT 6.7 g/dl (6.4-8.2)
[2019-02-03] MEDS ORDERED: PT OWN MED DRAWER 7, Y5N ONE ×2 (09:43→21:48)
[2019-02-03] MEDS: FOLIC ACID 1 MG TABLET (FP) PO SCH (10:10)
[2019-02-03] MEDS: FAMOTIDINE 20 MG/50 ML IVPB 20 MG/50 ML MG IVPB SCH (10:10)
[2019-02-03] MEDS: RIFAXIMIN 550 MG TABLET (UD) PO SCH ×2 (10:10→21:58)
[2019-02-03] MEDS: THIAMINE HCL 200 MG/2 ML VIAL IVPB SCH (10:45)
--- NOTE | 2019-02-03 12:39 | PN ---
Physical Exam: SUBJECTIVE: Patient seen and examined. eric had a BM for the day but offered no other complaints. OBJECTIVE: Vital Signs Period Temp Pulse Resp BP Sys/Phipps Pulse Ox Last 24 Hr 97.4 F-98.6 F 66-82 18-20 99-135/57-83 97-97 GENERAL: The patient is awake, alert, and fully oriented, in no distress. HEAD: Normal with no signs of trauma. EYES: PERRL, extraocular movements intact, sclera icteric but improving, conjunctiva clear. No ptosis. LUNGS: Breath sounds equal, clear to auscultation bilaterally, no wheezes, no crackles, no accessory muscle use. HEART: Regular rate and rhythm, S1, S2 without murmur, rub or gallop. ABDOMEN: Soft, nontender,mod distended, active bowel sounds, no guarding, no rebound, no hepatosplenomegaly, no masses. EXTREMITIES: 2+ pulses, warm, well-perfused, no edema. Laboratory Results - last 24 hr 02/03/19 02/03/19 06:35 06:35 WBC 9.9 RBC 2.90 L Hgb 10.3 L Hct 30.3 L MCV 104.6 H MCH 35.6 H MCHC 34.0 RDW 16.0 H Plt Count 244 MPV 9.5 Absolute Neuts (auto) 5.4 Neutrophils % 54.9 Lymphocytes % 15.8 Monocytes % 11.8 H Eosinophils % 16.7 H Basophils % 0.8 Nucleated RBC % 0 Sodium 137 Potassium 3.7 Chloride 101 Carbon Dioxide 28 Anion Gap 8 BUN 6.1 L Creatinine 0.5 L Est GFR (CKD-EPI)AfAm 159.33 Est GFR (CKD-EPI)NonAf 137.47 Random Glucose 69 L Calcium 8.3 L Phosphorus 4.0 Magnesium 1.8 Total Bilirubin 5.1 H AST 167 H ALT 133 H Alkaline Phosphatase 115 Total Protein 6.7 Albumin 2.2 L Active Medications Generic Name Dose Route Start Last Admin Trade Name Freq PRN Reason Stop Dose Admin Folic Acid 1 mg 02/02/19 10:00 02/03/19 10:10 Folic Acid - PO 1 mg DAILY MIESHA Administration Heparin Sodium (Porcine) 5,000 unit 01/30/19 22:00 02/03/19 05:51 Heparin - SQ 5,000 unit TID MIESHA Administration Hydrocortisone 1 applic 02/02/19 13:42 02/02/19 17:26 Hytone 0.5% Cream - TP 1 applic BID PRN Administration ALLERGIES Famotidine/Sodium Chloride 20 mg in 50 mls @ 100 mls/hr 01/31/19 10:00 10:10 Pepcid 20 Mg Premixed Ivpb - IVPB 100 mls/hr DAILY MIESHA Administration Methadone HCl 40 mg/ Methadone 60 mg 01/31/19 06:00 02/03/19 05:51 HCl 20 mg PO 60 mg DAILY@0600 MIESHA Administration Rifaximin 550 mg 01/30/19 22:00 02/03/19 10:10 Xifaxan - PO 550 mg BID MIESHA Administration Thiamine HCl 200 mg 01/31/19 10:00 02/03/19 10:45 Vitamin B1 Injection - IVPB 200 mg DAILY MIESHA Administration ASSESSMENT/PLAN: 38M [facility] pt (etoh detox 01/15/19) PMH HTN, polysubstance abuse(1.5 pints vodka daily, on methadone) admitted to ICU for severe alcohol withdrawal with DT 's. Delirium Tremens Pt AAOx3 patient off sedation and extubated and stable thiamine, folate f/u electrolytes , repleted as needed Aspiration precautions clear diet well tolerated Abdominal distension distension present but improved. Abdomen tympanic, BS active rectal tube placed and showed improvement. OFF lactulose to reduce gas production and distension PT to assist with Bowel movement monitor alcoholic hepatitis LFTs stable and trending down continue Rifaximin 550 BID monitor AND GENERALIZED RASH (NEW) POSSIBLE TAPE ALLERGY started hydrocortisone cream 0.5% daily DAMIAN, likely in setting of Type I (severe) hepatorenal syndrome Cr 0.5 stable No NSAIDs Avoid contrast exposure Polysubstance abuse methadone 60mg FEN NPO except for meds DVT Hep subQ Visit type - Emergency Visit Emergency Visit: Yes ED Registration Date: 01/16/19 Care time: The patient presented to the Emergency Department on the above date and was hospitalized for further evaluation of their emergent condition. - New Patient This patient is new to me today: No - Critical Care Critical Care patient: No - Discharge Referral Referred to [facility] Med P.C.: No ATTENDING PHYSICIAN STATEMENT I saw and evaluated the patient. I reviewed the resident's note and discussed the case with the resident. I agree with the resident's findings and plan as documented. SUBJECTIVE: OBJECTIVE: ASSESSMENT AND PLAN:
--- NOTE | 2019-02-03 15:26 | PN ---
Teaching Attending Note Name of Resident: Yennifer Terrell ATTENDING PHYSICIAN STATEMENT I saw and evaluated the patient. I reviewed the resident's note and discussed the case with the resident. I agree with the resident's findings and plan as documented. SUBJECTIVE: no pain, no fever or chills. No LUGO , no SOB , no ABd pain . OBJECTIVE: Awake, alert, knows location , knows some details about his home address CV: RRR, no MRG. Lungs: CTAB Abd: less distended compared to last week, Nl BS , tympanic, soft Ext : No edema or erythema skin : macular rash on abd , back and proximal upper and lower extremities ASSESSMENT AND PLAN: 38 y/o man with h/o alcohol abuse, h/o opioid use with methadone maintenance who presented with Replaced by [facility] with Dts. 1- DTs. resolved 2- hepatic encephalopathy: improved 3- Acute alcoholic hepatitis : improved 4- Fever : resolved 5- Macular rash : unclear etiology 6- colonic pseudo-obstruction 7- Acute resp failure 8 -leukocytosis plan: - cont foalte and thiamine - off lactulose am - Monitor LFTS - cont methadone at current dose - cont heparin sq - Cont rectal tube - cont diet - PT eval
--- NOTE | 2019-02-03 15:26 | CONSULT ---
Admitting History and Physical - Past Medical History EXAM PROCTOR: Yes: Seizure (EtOH withdrawal seizures in past per chart) Cardiovascular: Yes: HTN Infectious Disease: Yes: Other (PPD + per the chart) Psych: Yes: Addictions (alcoholic) - Past Surgical History Past Surgical History: Yes: None (none known) - Smoking History Smoking history: Current every day smoker Have you smoked in the past 12 months: Yes - Alcohol/Substance Use Hx Alcohol Use: Yes (1-2 pints vodka/day - recently up to 2L/day) History of Substance Use: reports: Heroin (in past - on methadone) - Social History ADL: Independent History - Admission Reason For Visit: HYPERAMMONEMIA ACUTE LIVER FAILURE HEPATIC ENCEPHA - General Mental Status: Alert and Oriented, Awake and Alert, Able to Follow Commands, Flat Affect Attention: Distractible, Mild Impairment Ability to Follow Directions: Fair Head/Neck Control: Good - Hearing Hearing: Functional Speech Evaluation - Communication Primary Language: SWEDISH Secondary Language: [place] Communication: Yes: Within Normal Limits Oral Expression Ability: Yes: No Impairment - Speech Production Intelligibility: Yes: WNL - Speech Characteristics Voice Loudness: Normal Voice Pitch: Yes: Normal Voice Phonatory-based Quality: Yes: Normal Speech Pattern: Normal Speech Clarity: < 100% Nasal Resonance: Normal Articulation: Yes: Precise Rate of Speech: Intact - Language/Auditory Comprehension Follows: Yes: 1 Stage Simple Commands Observation: Able to respond to yes/no queries: Yes, Yes/No Confusion: No, Comprehends Conversational Speech: Yes - Language/Verbal Expression Able to Respond to Simple Queries: Yes: WNL Able to Communicate Wants and Needs: Yes: WNL Functional Communication Status: Yes: WNL Aware of Errors: Yes Attempts to Correct Errors: No Use of Gestures: Yes Written Expression: Not examined Oral Expression: WFL Reading Comprehension: Not examined Calculations: Not examined Attention: Yes: Intact - Memory/Perception FPC Memory: Yes: WNL Short Term Memory: Yes: WNL - Swallow Evaluation/Bedside Assessment Current Nutritional Intake: Clear Liquids Oral Secretions: Yes: WFL Tracheostomy Present: No Patient on Ventilator: No Dentition: Yes: Missing Teeth Facial Symmetry at Rest: Symmetrical Facial Symmetry on Retraction: Symmetrical Facial Movement: Controlled Sensation: Normal Facial Comment: WFL for speech and swallowing purposes Jaw Position: Closed at Rest Against Resistance Opening: Normal Pucker Lips: Normal, Weak Smile: Normal, Weak Lips, Comment: [facility] for speech and swallowing purposes Lingual Movement: Symmetric Lingual Speed of Movement: Normal Lingual Movement Strgth Against Opposition: Reduced Lingual Movement Characteristics: Normal Lingual Comment: [facility] for speech and swallowing purposes Soft Palate Description: Normal Color Hard Palate Description: Normal Color Velopharyngeal Movement: Normal Laryngeal Movement: Labored,delay initiation Labial Seal: WFL Oral Prep Time: WFL A-P Transit: WFL Coughing/Throat Clear: No (3 oz water (-)) Change in Voice: No Other Findings/Remarks: 38 yo male seen at bedside for swallow eval to r/o dysphagia. Pt is A&Ox3 cooperative. Vocal quality and airway protection is adequate. Current diet clear liquids pending swallow eval. Pt given po trials of puree, regular solids without assistance revealed good acceptance, adequate bolus formation and transport. timely pharyngeal swallow with no cough of changes in respiration after the swallow. Thin liquids trials were unremarkable for aspiration at this time. Recommendations - Speech Evaluation, Impression/Plan Impression: 38 yo male presents with no signs of dysphagia for purees, regular solids and thin liquids at this time. 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 Short Term Goals: tolerate regular solids with thin liquids without s/s of aspiration. - Dysphagia Impressions/Plan Swallowing Skills: [facility] Dysphagia Impressions: No Impairment Dysphagia Evaluation Summary: Trial regular solids with thin liquids as tolerated. Ideally OOB for meals. Meds can be given whole with water. Results given to welder tool and die verbally and to PCP via chart. MANAGER SECURITY to follow up for diet tolerance - Recommendations Diet Consistency: Regular Medication Administration: Whole with water Liquids: Thin Liquids
--- NOTE | 2019-02-03 16:44 | PN.GI ---
GI Progress Note Subjective: patient awake in bed Denies abdominal pain Rectal tube remains with liquid stool in fecal bag - Objective Vital Signs: Vital Signs Temperature 98.3 F 02/03/19 14:35 Pulse Rate 99 H 02/03/19 14:35 Respiratory Rate 18 02/03/19 14:35 Blood Pressure 130/71 02/03/19 14:35 O2 Sat by Pulse Oximetry (%) 97 02/03/19 09:00 Constitutional: Calm Eyes: Yes: Sclera Icterus Cardiovascular: Yes: Regular Rate and Rhythm Respiratory: Yes: Diminished (at bases bilaterally) Gastrointestinal Inspection: No: Distention, Scars ...Auscultate: Yes: Normoactive Bowel Sounds ...Palpate: Yes: Firm/Rigid (improved when compared to prior exams). No: Tenderness ...Percussion: Yes: Tympanitic (Improved tympany when compared to prior) ...Rectal Exam: Yes: Other (Rectal tube repositioned and flushed. Liquid brown stool expelled.) Neurological: Yes: Alert Labs: CBC, BMP 02/03/19 06:35 02/03/19 06:35 INR, PTT INR 1.13 (0.83-1.09) H 01/27/19 05:30 Problem List - Problems (1) Alcoholic hepatitis Assessment/Plan: Continued serologic improvement. Improved mentation Supportive measures Code(s): K70.10 - ALCOHOLIC HEPATITIS WITHOUT ASCITES Qualifiers: Ascites presence: without ascites Qualified Code(s): K70.10 - Alcoholic hepatitis without ascites (2) Ileus Assessment/Plan: Clinically improved with less abdominal distention. Remains asymptomatic Rectal tube in place and repeat FUA ordered for AM Lytes have been corrected. Continue to monitor Code(s): K56.7 - ILEUS, UNSPECIFIED
[2019-02-04] MEDS ORDERED: METHADONE HCL 40 MG DISPERSABLE TABLET ONE (05:48)
[2019-02-04] MEDS ORDERED: METHADONE HCL 10 MG TABLET ONE (05:48)
[2019-02-04] MEDS: METHADONE 40 MG, METHADONE 20 MG PO SCH (06:56)
[2019-02-04] MEDS: HEPARIN NA (PORCINE) 5,000 UNITS/ML 1ML VIAL SQ SCH ×3 (06:57→21:31)
[2019-02-04 07:35] LABS: HEMATOCRIT 34.1 % (35.4-49); HEMOGLOBIN 11.4 GM/dL (11.7-16.9); MCH 35.4 pg (25.7-33.7); MCHC 33.6 g/dl (32.0-35.9); MEAN CELL VOLUME 105.3 fl (80-96); MEAN PLT VOLUME 9.5 fl (7.5-11.1); MONO % 8.4 % (3.8-10.2); NEUT % 53.6 % (42.8-82.8); PLATELET COUNT 294 K/MM3 (134-434); RBC 3.24 M/mm3 (4.00-5.60); RDW 15.7 % (11.9-15.9)
[2019-02-04 08:12] LABS: ALBUMIN 2.3 g/dl (3.4-5.0); BILIRUBIN,TOTAL 4.5 mg/dL (0.2-1); CALCIUM 8.5 mg/dL (8.5-10.1); CREATININE 0.6 mg/dL (0.55-1.3); POTASSIUM 3.8 mmol/L (3.5-5.1)
[2019-02-04] MEDS ORDERED: PT OWN MED DRAWER 7, Y5N ONE ×4 (09:03→21:16)
--- NOTE | 2019-02-04 10:29 | PN ---
Progress Note, HEALTHCARE RECEPTIONIST - Note Progress Note: Selected Entries 02/02/19 02/02/19 02/02/19 10:14 16:04 22:54 Breakfast NPO Lunch NPO Supper NPO 02/03/19 02/03/19 02/03/19 09:45 14:35 18:00 Breakfast 100% Lunch 100% Supper 75% On clears. Rectal tube. Down for u/s.
[2019-02-04] MEDS: FAMOTIDINE 20 MG/50 ML IVPB 20 MG/50 ML MG IVPB SCH (10:54)
[2019-02-04] MEDS: FOLIC ACID 1 MG TABLET (FP) PO SCH (10:54)
[2019-02-04] MEDS: THIAMINE HCL 200 MG/2 ML VIAL IVPB SCH (10:54)
[2019-02-04 11:33] LABS: ANISOCYTOSIS 1+; MACROCYTOSIS 1+; PLATELET ESTIMATE NORMAL
[2019-02-04] MEDS: RIFAXIMIN 550 MG TABLET (UD) PO SCH ×2 (11:40→21:31)
--- NOTE | 2019-02-04 13:04 | PN.GI ---
GI Progress Note Subjective: Tolerating PO. Rectal tube remains in, draining. No abdominal pain. Remains in bed, supine. - Objective Vital Signs: Vital Signs Temperature 98.1 F 02/04/19 10:00 Pulse Rate 77 02/04/19 10:00 Respiratory Rate 18 02/04/19 10:00 Blood Pressure 130/87 02/04/19 10:00 O2 Sat by Pulse Oximetry (%) 96 02/04/19 09:00 Constitutional: Well Nourished, No Distress, Calm Gastrointestinal Inspection: Yes: Distention ...Auscultate: Yes: Normoactive Bowel Sounds ...Palpate: Yes: Soft (Mild tympany). No: Mass, Tenderness Labs: CBC, BMP 02/04/19 06:55 02/04/19 06:55 INR, PTT INR 1.13 (0.83-1.09) H 01/27/19 05:30 Problem List - Problems (1) Ileus Assessment/Plan: With AXR revealing continued ileus (cecum OK), favor continued rectal tube, out of bed to chair, frequent turns in bed. Code(s): K56.7 - ILEUS, UNSPECIFIED
--- NOTE | 2019-02-04 16:46 | PN ---
Physical Exam: SUBJECTIVE: Patient seen and examined. pt had no bowel movement otherwise no other complaints OBJECTIVE: Vital Signs Period Temp Pulse Resp BP Sys/Phipps Pulse Ox Last 24 Hr 97.8 F-98.7 F 71-90 18-18 117-134/62-87 96-97 GENERAL: The patient is awake, alert, and fully oriented, in no distress. HEAD: Normal with no signs of trauma. EYES: PERRL, extraocular movements intact, sclera icteric but improving, conjunctiva clear. No ptosis. LUNGS: Breath sounds equal, clear to auscultation bilaterally, no wheezes, no crackles, no accessory muscle use. HEART: Regular rate and rhythm, S1, S2 without murmur, rub or gallop. ABDOMEN: Soft, nontender,mod distended, active bowel sounds, no guarding, no rebound, no hepatosplenomegaly, no masses. EXTREMITIES: 2+ pulses, warm, well-perfused, no edema. Laboratory Results - last 24 hr 02/04/19 02/04/19 06:55 06:55 WBC 9.0 RBC 3.24 L Hgb 11.4 L Hct 34.1 L MCV 105.3 H MCH 35.4 H MCHC 33.6 RDW 15.7 Plt Count 294 D MPV 9.5 Absolute Neuts (auto) 4.8 Neutrophils % 53.6 Lymphocytes % 20.0 D Monocytes % 8.4 Eosinophils % 16.0 H Basophils % 2.0 Nucleated RBC % 0 Hypochromia 0 Platelet Estimate Normal Polychromasia 0 Poikilocytosis 0 Anisocytosis 1+ Microcytosis 0 Macrocytosis 1+ Sodium 137 Potassium 3.8 Chloride 100 Carbon Dioxide 30 Anion Gap 7 L BUN 5.0 L Creatinine 0.6 Est GFR (CKD-EPI)AfAm 147.82 Est GFR (CKD-EPI)NonAf 127.55 Random Glucose 82 Calcium 8.5 Total Bilirubin 4.5 H AST 150 H ALT 126 H Alkaline Phosphatase 114 Total Protein 7.0 Albumin 2.3 L Active Medications Generic Name Dose Route Start Last Admin Trade Name Freq PRN Reason Stop Dose Admin Folic Acid 1 mg 02/02/19 10:00 02/04/19 10:54 Folic Acid - PO 1 mg DAILY MIESHA Administration Heparin Sodium (Porcine) 5,000 unit 01/30/19 22:00 02/04/19 13:24 Heparin - SQ 5,000 unit TID MIESHA Administration Hydrocortisone 1 applic 02/02/19 13:42 02/02/19 17:26 Hytone 0.5% Cream - TP 1 applic BID PRN Administration ALLERGIES Famotidine/Sodium Chloride 20 mg in 50 mls @ 100 mls/hr 01/31/19 10:00 10:54 Pepcid 20 Mg Premixed Ivpb - IVPB 100 mls/hr DAILY MIESHA Administration Methadone HCl 40 mg/ Methadone 60 mg 01/31/19 06:00 02/04/19 06:56 HCl 20 mg PO 60 mg DAILY@0600 MIESHA Administration Rifaximin 550 mg 01/30/19 22:00 02/04/19 11:40 Xifaxan - PO 550 mg BID MIESHA Administration Thiamine HCl 200 mg 01/31/19 10:00 02/04/19 10:54 Vitamin B1 Injection - IVPB 200 mg DAILY MIESHA Administration ASSESSMENT/PLAN: 38M [facility] pt (etoh detox 01/15/19) PMH HTN, polysubstance abuse(1.5 pints vodka daily, on methadone) admitted to ICU for severe alcohol withdrawal with DT 's. Delirium Tremens Pt AAOx3 patient off sedation and extubated and stable thiamine, folate f/u electrolytes , repleted as needed Aspiration precautions Abdominal distension distension present but improved. Abdomen tympanic, BS active rectal tube placed and showed improvement. OFF lactulose to reduce gas production and distension PT to assist with Bowel movement clear diet tolerated. diet advanced to regular to help BM alcoholic hepatitis LFTs stable and trending down continue Rifaximin 550 BID monitor AND GENERALIZED RASH (NEW) POSSIBLE TAPE ALLERGY started hydrocortisone cream 0.5% daily DAMIAN, likely in setting of Type I (severe) hepatorenal syndrome Cr 0.6 stable No NSAIDs Avoid contrast exposure Polysubstance abuse methadone 60mg FEN regular diet DVT Hep subQ Visit type - Emergency Visit Emergency Visit: Yes ED Registration Date: 01/16/19 Care time: The patient presented to the Emergency Department on the above date and was hospitalized for further evaluation of their emergent condition. - New Patient This patient is new to me today: No - Critical Care Critical Care patient: No - Discharge Referral Referred to [facility] Med P.C.: No ATTENDING PHYSICIAN STATEMENT I saw and evaluated the patient. I reviewed the resident's note and discussed the case with the resident. I agree with the resident's findings and plan as documented. SUBJECTIVE: OBJECTIVE: ASSESSMENT AND PLAN:
--- NOTE | 2019-02-04 18:23 | PN ---
Teaching Attending Note Name of Resident: Yennifer Terrell ATTENDING PHYSICIAN STATEMENT I saw and evaluated the patient. I reviewed the resident's note and discussed the case with the resident. I agree with the resident's findings and plan as documented. SUBJECTIVE: no fever or chills. No Abd pain . seen in am when rectal tube was in . accidentally came out this afternoon OBJECTIVE: Awake, alert, oriented x 3 CV: RRR, no MRG. Lungs: CTAB Abd: ldistended, tympanic ,soft, not tender Ext : No edema or erythema skin : fading macular rash on abd , back and proximal upper and lower extremities ASSESSMENT AND PLAN: 38 y/o man with h/o alcohol abuse, h/o opioid use with methadone maintenance who presented with [facility] with Dts. 1- DTs. resolved 2- hepatic encephalopathy: improved 3- Acute alcoholic hepatitis : improved 4- Fever : resolved 5- Macular rash : unclear etiology 6- colonic pseudo-obstruction 7- Acute resp failure 8 -leukocytosis plan: - cont foalte and thiamine -rectal tube came out. to be placed agian per GI - Monitor LFTS - cont methadone at current dose - cont heparin sq - cont diet - PT eval patient is not determined if he is interested in ETOH rehab. family is aware
[2019-02-05] MEDS ORDERED: METHADONE HCL 40 MG DISPERSABLE TABLET ONE (05:38)
[2019-02-05] MEDS ORDERED: METHADONE HCL 10 MG TABLET ONE (05:39)
[2019-02-05] MEDS: HEPARIN NA (PORCINE) 5,000 UNITS/ML 1ML VIAL SQ SCH ×2 (05:52→13:09)
[2019-02-05] MEDS: METHADONE 40 MG, METHADONE 20 MG PO SCH (06:05)
[2019-02-05 06:08] LABS: BASO % 1.6 % (0-2.0); EOS % 13.4 % (0-4.5); LYMPH % 22.4 % (8-40); MCH 35.3 pg (25.7-33.7); MCHC 34.3 g/dl (32.0-35.9); MEAN CELL VOLUME 103.1 fl (80-96); MEAN PLT VOLUME 8.7 fl (7.5-11.1); MONO % 9.2 % (3.8-10.2); NEUT % 53.4 % (42.8-82.8); PLATELET COUNT 255 K/MM3 (134-434); RDW 15.6 % (11.9-15.9); WHITE BLOOD COUNT 7.8 K/mm3 (4.0-10.0)
[2019-02-05 06:42] LABS: ALBUMIN 2.2 g/dl (3.4-5.0); BILIRUBIN,TOTAL 3.9 mg/dL (0.2-1); BLOOD UREA NITROGEN 5.2 mg/dL (7-18); CALCIUM 8.6 mg/dL (8.5-10.1); CREATININE 0.6 mg/dL (0.55-1.3); POTASSIUM 3.6 mmol/L (3.5-5.1); TOT PROT 6.8 g/dl (6.4-8.2)
--- NOTE | 2019-02-05 08:33 | PN ---
Teaching Attending Note Name of Resident: Yennifer Terrell ATTENDING PHYSICIAN STATEMENT I saw and evaluated the patient. I reviewed the resident's note and discussed the case with the resident. I agree with the resident's findings and plan as documented. SUBJECTIVE: No fever or chills. No LUGO ,had a big BM last night . No Abd pain. no N/V. OBJECTIVE: Awake, alert, oriented x 3 CV: RRR, no MRG. Lungs: CTAB Abd: distended ( better than yesterday's exam) , tympanic ,soft, not tender Ext : No edema or erythema skin : fading macular rash on abd , back and proximal upper and lower extremities ASSESSMENT AND PLAN: 38 y/o man with h/o alcohol abuse, h/o opioid use with methadone maintenance who presented with form [facility] with Dts. 1- DTs. resolved 2- Hepatic encephalopathy:resolved 3- Acute alcoholic hepatitis: improved 4- Fever: resolved 5- Macular rash : unclear etiology. improved 6- Colonic pseudo-obstruction 7- Acute resp failure : improved 8- Leukocytosis. resolved plan: - cont foalte and thiamine - Had a BM, abd distention resolved. repeat KUB this am. hopefully we don't need to place rectal tube back.Increased mobility will help. - Monitor LFTS - cont methadone at current dose - cont heparin sq - cont rifaximin - cont diet - will d/w GI if lactulose need to cont after dc - need Hep B vaccine . can be done as out pt Patient agrees to [facility] rehab. Will d/w GI about any further tests . If not , then hopefully can dc
[2019-02-05] MEDS ORDERED: PT OWN MED DRAWER 7, Y5N ONE ×2 (08:40→13:22)
[2019-02-05] MEDS: RIFAXIMIN 550 MG TABLET (UD) PO SCH (09:03)
[2019-02-05] MEDS: FOLIC ACID 1 MG TABLET (FP) PO SCH (09:03)
[2019-02-05] MEDS: FAMOTIDINE 20 MG/50 ML IVPB 20 MG/50 ML MG IVPB SCH (09:04)
[2019-02-05 09:33] LABS: INR 1.2 (0.83-1.09); PROTHROMBIN TIME (PATIENT) 14.2 SEC (9.7-13.0)
[2019-02-05] MEDS: THIAMINE HCL 200 MG/2 ML VIAL IVPB SCH (10:09)
--- NOTE | 2019-02-05 12:12 | PN ---
Progress Note, DIRECTOR OF OCCUPATIONAL HEALTH - Note Progress Note: Selected Entries 02/04/19 02/04/19 02/04/19 01:33 06:00 10:00 Breakfast Diet Tolerated Supper Temperature 98.6 F 98.7 F 98.1 F 02/04/19 02/04/19 02/04/19 14:00 18:00 21:00 Breakfast Diet Tolerated Supper Temperature 97.9 F 98.7 F 98.9 F 02/04/19 02/05/19 02/05/19 22:00 02:00 05:47 Breakfast Diet Tolerated Supper 100% Temperature 98.0 F 98.6 F 02/05/19 02/05/19 08:30 09:39 Breakfast 100% Diet Tolerated Well Supper Temperature 97.6 F Laboratory Tests 02/05/19 05:49 WBC 7.8 Much improved. Now on reg diet. Pt would prefer chopped diet due to poor dentition. Suggest chopped diet with ground meat.
[2019-02-05] MEDS ORDERED: PANTOPRAZOLE 40 MG TABLET (FP) PO SCH (13:00)
[2019-02-05] MEDS ORDERED: metroNIDAZOLE 250 MG TABLET PO SCH (14:00)
[2019-02-05 14:27] VITALS: BP 126/78; PULSE 79; TEMP 98.3
[2019-02-05 15:45] VITALS: BMI 33.2
[2019-02-05] MEDS ORDERED: METOCLOPRAMIDE HCL 10 MG TABLET (FP) PO SCH (16:30)
--- NOTE | 2019-02-05 19:14 | DS ---
Physical Exam: SUBJECTIVE: Patient seen and examined. Pt had a BM and tolerating advanced diet. OBJECTIVE: Vital Signs Period Temp Pulse Resp BP Sys/Phipps Pulse Ox Last 24 Hr 97.6 F-98.9 F 62-79 16-18 126-129/76-86 95-96 PHYSICAL EXAM GENERAL: The patient is awake, alert, and fully oriented, in no distress. HEAD: Normal with no signs of trauma. EYES: PERRL, extraocular movements intact, sclera icteric but improving, conjunctiva clear. No ptosis. LUNGS: Breath sounds equal, clear to auscultation bilaterally, no wheezes, no crackles, no accessory muscle use. HEART: Regular rate and rhythm, S1, S2 without murmur, rub or gallop. ABDOMEN: Soft, nontender,mod distended, active bowel sounds, no guarding, no rebound, no hepatosplenomegaly, no masses. EXTREMITIES: 2+ pulses, warm, well-perfused, no edema. LABS Laboratory Results - last 24 hr 02/05/19 02/05/19 02/05/19 05:49 05:49 08:49 WBC 7.8 RBC 3.10 L Hgb 11.0 L Hct 32.0 L MCV 103.1 H MCH 35.3 H MCHC 34.3 RDW 15.6 Plt Count 255 MPV 8.7 Absolute Neuts (auto) 4.2 Neutrophils % 53.4 Lymphocytes % 22.4 Monocytes % 9.2 Eosinophils % 13.4 H Basophils % 1.6 Nucleated RBC % 0 PT with INR 14.20 H INR 1.20 H Sodium 140 Potassium 3.6 Chloride 104 Carbon Dioxide 30 Anion Gap 6 L BUN 5.2 L Creatinine 0.6 Est GFR (CKD-EPI)AfAm 147.82 Est GFR (CKD-EPI)NonAf 127.55 Random Glucose 85 Calcium 8.6 Total Bilirubin 3.9 H AST 125 H ALT 110 H Alkaline Phosphatase 109 Total Protein 6.8 Albumin 2.2 L HOSPITAL COURSE: Date of Admission:01/16/19 38M [facility] pt (etoh detox 01/15/19) PMH HTN, polysubstance abuse(1.5 pints vodka daily, on methadone) admitted to ICU for severe alcohol withdrawal with DT 's. Patient presented to the ER from [facility] detox and rehab because of altered mental status, confusion, tremors and an elevated ammonia level. Patient was found to have a CIWA of 19 in the ED. At [facility], patient had a CIWA of 12 and was started on ativan protocol. This morning, patient became restless, tachycardic and HR in the 140's. Labs at [facility] revealed T. bili of 15.3, AST 418, ALT 144, and ammonia of 59, with concerns of hepatic encephalopathy. In the ER patient became increasingly agitated, combative with worsening tremors. Patient was given librium, versed, multiple rounds of ativan and valium. Patient was then intubated for airway protection and started on a propofol drip, banana bag, thiamine, folate, rifaximan and lactulose.EKG showed sinus tach at 120bpm, R axis dev. CT abdomen and pelvis showed marked diffuse hepatic steatosis, moderate GB overdistension with inspissated bile / sludge within the gallbladder lumen. Per GI no steroid were recommended at the time and patient LFTs and PT/INR were trended and discriminant scores recalculated often to ensure need for steroids didnt change. Pt initial Xray showed possible concern for PNA and patient had recurrent fever spikes; patient was treated with Vanco and Zosyn until speciation and sensitivity came back. Per ID patient was switched to Ertapenem based on culture results however there became a concern for possible drug rash .Since patient became afebrile, and no white count, pt was monitored off antibiotics.( rash was later determined to be fungal as it was reponsive to nystatin cream and appearance and unresponsive to hydrocortisone cream and benadryl). Pt failed weaning trials and sedation holidays on multiple occasions leading to prolonged ICU stay. once patient was able to tolerate extubation, patient was given ativan PRN for continued withdrawal until cessation of symptoms . Due to prolonged intubation, immobility and paraenteral feeds, pt developped severe ileus with abdominal distension. Lactulose was discontinued, rectal tube placed and serial KUBs to look for interval changes. pt was encouraged to ambulate, eat low fat and low fiber diet once able and electrolytes repleted as needed to assist with GI motility. Abdominal distention improved, BM increased and pt was discharged on metronidazold for possible FIBO as per GI, with protonix for 2 weeks, methadone 60mg daily with bowel regimen, folic acid, thiamine. 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 We had to put a tube in your mouth to protect your breathing and lungs and then treated you for severe alcohol withdrawal. We took imaging of your abdomen and it showed immediate liver damage secondary to excessive alcohol intake. Your blood tested positive for signs of liver damage as well; please follow up with Gastroenterology Dr Rebolledo as outpatient. while you were here, your belly became severely distended; repeat imaging showed that your bowel stopped moving so we placed a tube in your rectum to decompress then you improved. Your symptoms have improved and you are stable enough to be discharged home. As you requested, we have arranged for you to begin rehab on Saturday at 1pm. Medications: Please resume your home medication. We have made some changes to your medications list: Please take flagyl 250mg three times a day for the next 7 days 02/06/19-02/12/19 Please take protonix 40 mg daily from 02/06/19-02/20/19. Please take thiamine 200mg daily and folate 1mg daily. Please take rifaximin 550mg twice a day. Please take methadone 60mg daily. Follow up: Please follow up with GI, Dr Rebolledo within one week. Please follow up with Dr Youngblood, your rehab Doctor on Saturday. Since you do not have a Primary care Physician, we referred you to our [facility] clinic on [address]; please call for appointment [phone] within one week to schedule an appointment with Dr. Marquez ( matrix supervisor is dr. Talbert ) Please have repeat blood work (CBC and BMP) within one week during your appointment at [facility]. if you begin to experience headaches, palpitations, sweating, tremors, chest pain, shortness of breath, fevers, and bleeding please return to the Emergency Room immediately. Referrals: Vamsi Talbert MD [Staff Physician] - 1 Week Spenser Rebolledo DO [Staff Physician] - 1 Week Emam Youngblood DO [Staff Physician] - 1 Week Disposition: HOME - Home Medications Comprehensive Discharge Medication List: Ambulatory Orders Amlodipine Besylate [Norvasc -] 5 mg PO DAILY #30 tablet 02/05/19 Folic Acid - 1 mg PO DAILY #30 tablet 02/05/19 Methadone [Dolophine -] 60 mg PO DAILY #30 tab.disper MDD 60 02/05/19 Pantoprazole Sodium [Protonix -] 40 mg PO DAILY #14 tablet.ec 02/05/19 Rifaximin [Xifaxan -] 550 mg PO BID #60 tablet 02/05/19 Thiamine HCl [Vitamin B1 Injection -] 200 mg PO DAILY #30 vial 02/05/19 metroNIDAZOLE [Flagyl -] 250 mg PO TID #21 tablet 02/05/19 Problem List - Problems (1) Abdominal distension Problems reviewed: Yes Code(s): R14.0 - ABDOMINAL DISTENSION (GASEOUS) (2) Alcohol withdrawal Code(s): F10.239 - ALCOHOL DEPENDENCE WITH WITHDRAWAL, UNSPECIFIED (3) Alcohol-induced sleep disorder Code(s): F10.982 - ALCOHOL USE, UNSPECIFIED WITH ALCOHOL-INDUCED SLEEP DISORDER (4) History of positive PPD Code(s): R76.11 - NONSPECIFIC REACTION TO SKIN TEST W/O ACTIVE TUBERCULOSIS (5) Hypertension Code(s): I10 - ESSENTIAL (PRIMARY) HYPERTENSION Qualifiers: Hypertension type: essential hypertension Qualified Code(s): I10 - Essential (primary) hypertension (6) Methadone maintenance therapy patient Code(s): F11.20 - OPIOID DEPENDENCE, UNCOMPLICATED (7) Opioid dependence on agonist therapy Code(s): F11.20 - OPIOID DEPENDENCE, UNCOMPLICATED (10) Acute liver failure Qualifiers: Hepatic coma status: without hepatic coma Qualified Code(s): K72.00 - Acute and subacute hepatic failure without coma (11) Acute respiratory failure Code(s): J96.00 - ACUTE RESPIRATORY FAILURE, UNSP W HYPOXIA OR HYPERCAPNIA Qualifiers: Respiratory failure complication: unspecified whether with hypoxia or hypercapnia Qualified Code(s): J96.00 - Acute respiratory failure, unspecified whether with hypoxia or hypercapnia (12) Alcohol withdrawal delirium Code(s): F10.231 - ALCOHOL DEPENDENCE WITH WITHDRAWAL DELIRIUM (13) Alcoholic hepatitis Code(s): K70.10 - ALCOHOLIC HEPATITIS WITHOUT ASCITES Qualifiers: Ascites presence: without ascites Qualified Code(s): K70.10 - Alcoholic hepatitis without ascites (14) Confusion Code(s): R41.0 - DISORIENTATION, UNSPECIFIED (15) Delirium tremens Code(s): F10.231 - ALCOHOL DEPENDENCE WITH WITHDRAWAL DELIRIUM (16) Elevated liver enzymes Code(s): R74.8 - ABNORMAL LEVELS OF OTHER SERUM ENZYMES (17) Fever Code(s): R50.9 - FEVER, UNSPECIFIED Qualifiers: Fever type: due to other condition Qualified Code(s): R50.81 - Fever presenting with conditions classified elsewhere (18) Hyperammonemia Code(s): E72.20 - DISORDER OF UREA CYCLE METABOLISM, UNSPECIFIED (19) Hypokalemia Code(s): E87.6 - HYPOKALEMIA (20) Ileus Code(s): K56.7 - ILEUS, UNSPECIFIED This patient is new to me today: No Emergency Visit: Yes ED Registration Date: 01/16/19 Care time: The patient presented to the Emergency Department on the above date and was hospitalized for further evaluation of their emergent condition. Critical Care patient: No - Discharge Referral Referred to [facility] No ATTENDING PHYSICIAN STATEMENT I saw and evaluated the patient. I reviewed the resident's note and discussed the case with the resident. I agree with the resident's findings and plan as documented. SUBJECTIVE: OBJECTIVE: ASSESSMENT AND PLAN:
== END 2019-02-05 19:31 | disposition home or self-care (01) | DRG 130 ==
LOC: JER 12:54 → JERBED 18:09 → JICU 22:04 → J4S 01-30 19:53
PROVIDERS: ADMIT Internal Medicine; ATTEND Internal Medicine
PROC: 0BH17EZ Insertion of Endotracheal Airway into Trachea, Via Natural or Artificial Opening (ICD-10-PCS; principal; 2019-01-16)
PROC: 5A1955Z Respiratory Ventilation, Greater than 96 Consecutive Hours (ICD-10-PCS; 2019-01-16)
DX: J96.01 Acute respiratory failure with hypoxia (principal); N39.0 Urinary tract infection, site not specified; F17.210 Nicotine dependence, cigarettes, uncomplicated; K76.0 Fatty (change of) liver, not elsewhere classified; F41.8 Other specified anxiety disorders; R53.83 Other fatigue; K72.00 Acute and subacute hepatic failure without coma; E87.70 Fluid overload, unspecified; K70.10 Alcoholic hepatitis without ascites; K56.7 Ileus, unspecified; F10.231 Alcohol dependence with withdrawal delirium; D68.9 Coagulation defect, unspecified; R45.1 Restlessness and agitation; E87.2 Acidosis; E72.20 Disorder of urea cycle metabolism, unspecified; N17.9 Acute kidney failure, unspecified; E66.8 Other obesity; Z68.33 Body mass index [BMI] 33.0-33.9, adult; I10 Essential (primary) hypertension; R14.0 Abdominal distension (gaseous); E87.1 Hypo-osmolality and hyponatremia; R00.0 Tachycardia, unspecified; F11.20 Opioid dependence, uncomplicated; R50.9 Fever, unspecified; D69.6 Thrombocytopenia, unspecified; E87.6 Hypokalemia; E83.42 Hypomagnesemia; D72.829 Elevated white blood cell count, unspecified; L27.0 Generalized skin eruption due to drugs and medicaments taken internally
CPT/HCPCS: 36415; 36600; 70450-TC; 71045-TC-FY; 74018-TC-FY; 74019-TC-FY; 74176-TC; 74177-TC; 76705-TC; 80048; 80053; 80076; 80307; 81003; 82140; 82248; 82550; 82553; 82565; 82570; 82803; 83605; 83735; 84100; 84156; 84300; 84484; 85025; 85027; 85610; 85730; 86704; 86706; 86707; 86708; 86709; 86803; 86850; 86900; 86901; 87040; 87070; 87077; 87086; 87186; 87205; 87340; 87350; 87389; 93005; 93010; 94002; 97116-GP; 97162-GP; 99285-25; G0480; J0131; J1644; J7030

== ENCOUNTER 2019-02-09 09:04 | Inpatient (IN) | payer OTHER ==
[2019-02-09 09:41] VITALS: BMI 33.2
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
[2019-02-09] MEDS ORDERED: guaiFENesin 200 MG/10 ML 10 ML UNIT-DOSE CUPS PO PRN (10:07)
[2019-02-09] MEDS ORDERED: MAGNESIUM HYDROX 2400MG/30ML ORAL SUSPENSION 30 ML CUP PO PRN (10:07)
[2019-02-09] MEDS ORDERED: LOPERAMIDE HCL 2 MG CAPSULE PO PRN (10:07)
[2019-02-09] MEDS ORDERED: MAGNESIUM CITRATE 300 ML BOTTLE PO PRN (10:07)
[2019-02-09] MEDS ORDERED: IBUPROFEN 400 MG TABLET (FP) PO PRN (10:07)
[2019-02-09] MEDS ORDERED: ACETAMINOPHEN 325 MG TABLET (FP) PO PRN (10:07)
[2019-02-09] MEDS ORDERED: MENTHOL/PHENOL 1 EACH UD MM PRN (10:07)
[2019-02-09] MEDS ORDERED: P-EPHED 60MG/TRIPROLIDI 2.5MG TABLET PO PRN (10:07)
[2019-02-09] MEDS ORDERED: MAG HYDROX/AL HYDROX/SIMETH 30 ML UNIT-DOSE CUP PO PRN (10:07)
[2019-02-09] MEDS: METRONIDAZOLE PO SCH ×2 (15:10→21:18)
[2019-02-09] MEDS: RIFAXIMIN PO SCH (21:18)
[2019-02-09] MEDS: MELATONIN 5 MG TABLETS PO PRN (21:19)
[2019-02-09] MEDS: THIAMINE HCL 100 MG TABLET (FP) PO SCH (21:19)
[2019-02-10] MEDS ORDERED: METHADONE HCL 10 MG TABLET ONE (06:25)
[2019-02-10] MEDS: METHADONE 40 MG, METHADONE 20 MG PO SCH (06:25)
[2019-02-10] MEDS ORDERED: METHADONE HCL 40 MG DISPERSABLE TABLET ONE (06:25)
[2019-02-10] MEDS: METRONIDAZOLE PO SCH ×3 (06:27→21:13)
[2019-02-10] MEDS ORDERED: METHADONE HCL 40 MG DISPERSABLE TABLET PO SCH (10:00)
[2019-02-10] MEDS: PANTOPRAZOLE SODIUM PO SCH (10:11)
[2019-02-10] MEDS: SENNOSIDES PO SCH (10:12)
[2019-02-10] MEDS: NICOTINE 7 MG/24 HOURS TOPICAL PATCH TD SCH (10:12)
[2019-02-10] MEDS: DOCUSATE SODIUM 100 MG PO SCH (10:12)
[2019-02-10] MEDS: PRENATAL VITAMINS W/ FOLIC ACID TABLET (FP) PO SCH (10:12)
[2019-02-10] MEDS: PATIENT'S OWN MEDICATION (NON-FORMULARY) (Amlodipine Besylate [Norvasc -] 10 MG) PO SCH (10:12)
[2019-02-10] MEDS: PATIENT'S OWN MEDICATION (NON-FORMULARY) (Folic Acid - [Folic Acid -] 1 MG) PO SCH (10:12)
[2019-02-10] MEDS: RIFAXIMIN PO SCH ×2 (10:13→21:13)
[2019-02-10] MEDS: THIAMINE HCL 100 MG TABLET (FP) PO SCH (21:14)
[2019-02-10] MEDS: MELATONIN 5 MG TABLETS PO PRN (21:14)
[2019-02-11] MEDS ORDERED: METHADONE HCL 40 MG DISPERSABLE TABLET ONE (05:13)
[2019-02-11] MEDS ORDERED: METHADONE HCL 10 MG TABLET ONE (05:13)
[2019-02-11] MEDS: METHADONE 40 MG, METHADONE 20 MG PO SCH (06:25)
[2019-02-11] MEDS: METRONIDAZOLE PO SCH ×3 (06:25→21:13)
[2019-02-11] MEDS: PATIENT'S OWN MEDICATION (NON-FORMULARY) (Folic Acid - [Folic Acid -] 1 MG) PO SCH (09:48)
[2019-02-11] MEDS: DOCUSATE SODIUM 100 MG PO SCH (09:48)
[2019-02-11] MEDS: PATIENT'S OWN MEDICATION (NON-FORMULARY) (Amlodipine Besylate [Norvasc -] 10 MG) PO SCH (09:48)
[2019-02-11] MEDS: RIFAXIMIN PO SCH ×2 (09:48→21:13)
[2019-02-11] MEDS: PANTOPRAZOLE SODIUM PO SCH (09:49)
[2019-02-11] MEDS: PRENATAL VITAMINS W/ FOLIC ACID TABLET (FP) PO SCH (09:49)
[2019-02-11] MEDS: NICOTINE 7 MG/24 HOURS TOPICAL PATCH TD SCH (09:49)
[2019-02-11] MEDS: SENNOSIDES PO SCH (09:49)
[2019-02-11] MEDS: THIAMINE HCL 100 MG TABLET (FP) PO SCH (21:14)
[2019-02-11] MEDS: MELATONIN 5 MG TABLETS PO PRN (21:14)
[2019-02-12] MEDS ORDERED: METHADONE HCL 10 MG TABLET ONE (05:46)
[2019-02-12] MEDS ORDERED: METHADONE HCL 40 MG DISPERSABLE TABLET ONE (05:46)
[2019-02-12] MEDS: METHADONE 40 MG, METHADONE 20 MG PO SCH (06:14)
[2019-02-12] MEDS: METRONIDAZOLE PO SCH ×3 (06:16→21:09)
[2019-02-12] MEDS: DOCUSATE SODIUM 100 MG PO SCH (09:59)
[2019-02-12] MEDS: PANTOPRAZOLE SODIUM PO SCH (09:59)
[2019-02-12] MEDS: PATIENT'S OWN MEDICATION (NON-FORMULARY) (Folic Acid - [Folic Acid -] 1 MG) PO SCH (09:59)
[2019-02-12] MEDS: PATIENT'S OWN MEDICATION (NON-FORMULARY) (Amlodipine Besylate [Norvasc -] 10 MG) PO SCH (09:59)
[2019-02-12] MEDS: NICOTINE 7 MG/24 HOURS TOPICAL PATCH TD SCH ×2 (09:59→10:01)
[2019-02-12] MEDS: SENNOSIDES PO SCH (09:59)
[2019-02-12] MEDS: RIFAXIMIN PO SCH ×2 (10:00→21:08)
[2019-02-12] MEDS: PRENATAL VITAMINS W/ FOLIC ACID TABLET (FP) PO SCH (10:00)
[2019-02-12 12:20] LABS: HEMATOCRIT 34.5 % (35.4-49); HEMOGLOBIN 11.3 GM/dL (11.7-16.9); MCH 34.1 pg (25.7-33.7); MCHC 32.8 g/dl (32.0-35.9); MEAN CELL VOLUME 103.7 fl (80-96); MEAN PLT VOLUME 9.5 fl (7.5-11.1); PLATELET COUNT 224 K/MM3 (134-434); RBC 3.33 M/mm3 (4.00-5.60); RDW 14.3 % (11.9-15.9); WHITE BLOOD COUNT 9.8 K/mm3 (4.0-10.0)
[2019-02-12 12:29] LABS: ALBUMIN 2.4 g/dl (3.4-5.0); BILIRUBIN,TOTAL 2.3 mg/dL (0.2-1); BLOOD UREA NITROGEN 5.6 mg/dL (7-18); CALCIUM 8.2 mg/dL (8.5-10.1); CREATININE 0.6 mg/dL (0.55-1.3); POTASSIUM 4.7 mmol/L (3.5-5.1)
[2019-02-12] MEDS: THIAMINE HCL 100 MG TABLET (FP) PO SCH (21:09)
[2019-02-12] MEDS: MELATONIN 5 MG TABLETS PO PRN (21:09)
[2019-02-13] MEDS ORDERED: METHADONE HCL 10 MG TABLET ONE (05:45)
[2019-02-13] MEDS ORDERED: METHADONE HCL 40 MG DISPERSABLE TABLET ONE (05:45)
[2019-02-13] MEDS: METRONIDAZOLE PO SCH ×3 (06:06→21:16)
[2019-02-13] MEDS: METHADONE 40 MG, METHADONE 20 MG PO SCH (06:06)
[2019-02-13] MEDS: PATIENT'S OWN MEDICATION (NON-FORMULARY) (Folic Acid - [Folic Acid -] 1 MG) PO SCH (10:05)
[2019-02-13] MEDS: DOCUSATE SODIUM 100 MG PO SCH (10:05)
[2019-02-13] MEDS: PRENATAL VITAMINS W/ FOLIC ACID TABLET (FP) PO SCH (10:05)
[2019-02-13] MEDS: PATIENT'S OWN MEDICATION (NON-FORMULARY) (Amlodipine Besylate [Norvasc -] 10 MG) PO SCH (10:05)
[2019-02-13] MEDS: SENNOSIDES PO SCH (10:06)
[2019-02-13] MEDS: PANTOPRAZOLE SODIUM PO SCH (10:06)
[2019-02-13] MEDS: RIFAXIMIN PO SCH ×2 (10:06→21:15)
[2019-02-13] MEDS: NICOTINE 7 MG/24 HOURS TOPICAL PATCH TD SCH (10:07)
[2019-02-13 12:58] LABS: EPI CELLS 1.9 /HPF (0-5/HPF); HYALINE CASTS 6 /lpf (0-8); URINE APPEARANCE CLEAR; URINE BACTERIA 10.8 /hpf (NEGATIVE); URINE BILIRUBIN NEGATIVE (NEGATIVE); URINE COLOR DK YELLOW; URINE GLUCOSE (UA) NEGATIVE (NEGATIVE); URINE KETONE NEGATIVE (NEGATIVE); URINE LEUK ESTERASE 1+ (NEGATIVE); URINE NITRITE NEGATIVE (NEGATIVE); URINE PROTEIN NEGATIVE (NEGATIVE); URINE RBC 4 /hpf (0-4); URINE UROBILINOGEN 0.2 mg/dL (0.2-1.0); URINE WBC 9 /hpf (0-5)
[2019-02-13] MEDS: MELATONIN 5 MG TABLETS PO PRN (21:15)
[2019-02-13] MEDS: THIAMINE HCL 100 MG TABLET (FP) PO SCH (21:15)
[2019-02-14] MEDS ORDERED: METHADONE HCL 10 MG TABLET ONE (04:09)
[2019-02-14] MEDS ORDERED: METHADONE HCL 40 MG DISPERSABLE TABLET ONE (04:10)
[2019-02-14] MEDS: METHADONE 40 MG, METHADONE 20 MG PO SCH (05:42)
[2019-02-14] MEDS: METRONIDAZOLE PO SCH ×3 (06:34→21:38)
[2019-02-14] MEDS: PRENATAL VITAMINS W/ FOLIC ACID TABLET (FP) PO SCH (10:25)
[2019-02-14] MEDS: PANTOPRAZOLE SODIUM PO SCH (10:26)
[2019-02-14] MEDS: RIFAXIMIN PO SCH ×2 (10:27→21:37)
[2019-02-14] MEDS: NICOTINE 7 MG/24 HOURS TOPICAL PATCH TD SCH (10:27)
[2019-02-14] MEDS: DOCUSATE SODIUM 100 MG PO SCH (10:28)
[2019-02-14] MEDS: PATIENT'S OWN MEDICATION (NON-FORMULARY) (Folic Acid - [Folic Acid -] 1 MG) PO SCH (10:29)
[2019-02-14] MEDS: PATIENT'S OWN MEDICATION (NON-FORMULARY) (Amlodipine Besylate [Norvasc -] 10 MG) PO SCH (10:30)
[2019-02-14] MEDS: SENNOSIDES PO SCH (10:31)
[2019-02-14] MEDS: THIAMINE HCL 100 MG TABLET (FP) PO SCH (21:36)
[2019-02-14] MEDS: MELATONIN 5 MG TABLETS PO PRN (21:37)
[2019-02-15] MEDS ORDERED: METHADONE HCL 40 MG DISPERSABLE TABLET ONE (03:12)
[2019-02-15] MEDS ORDERED: METHADONE HCL 10 MG TABLET ONE (03:12)
[2019-02-15] MEDS: METHADONE 40 MG, METHADONE 20 MG PO SCH (06:10)
[2019-02-15] MEDS: METRONIDAZOLE PO SCH ×3 (06:58→21:23)
[2019-02-15] MEDS: PRENATAL VITAMINS W/ FOLIC ACID TABLET (FP) PO SCH (09:43)
[2019-02-15] MEDS: SENNOSIDES PO SCH (09:43)
[2019-02-15] MEDS: RIFAXIMIN PO SCH ×2 (09:43→21:21)
[2019-02-15] MEDS: PANTOPRAZOLE SODIUM PO SCH (09:44)
[2019-02-15] MEDS: DOCUSATE SODIUM 100 MG PO SCH (09:44)
[2019-02-15] MEDS: PATIENT'S OWN MEDICATION (NON-FORMULARY) (Folic Acid - [Folic Acid -] 1 MG) PO SCH (09:44)
[2019-02-15] MEDS: PATIENT'S OWN MEDICATION (NON-FORMULARY) (Amlodipine Besylate [Norvasc -] 10 MG) PO SCH (09:45)
[2019-02-15] MEDS: NICOTINE 7 MG/24 HOURS TOPICAL PATCH TD SCH (09:46)
[2019-02-15] MEDS: MELATONIN 5 MG TABLETS PO PRN (21:21)
[2019-02-15] MEDS: THIAMINE HCL 100 MG TABLET (FP) PO SCH (21:21)
[2019-02-16] MEDS ORDERED: METHADONE HCL 10 MG TABLET ONE (05:52)
[2019-02-16] MEDS ORDERED: METHADONE HCL 40 MG DISPERSABLE TABLET ONE (05:52)
[2019-02-16] MEDS: METHADONE 40 MG, METHADONE 20 MG PO SCH (06:07)
[2019-02-16] MEDS: METRONIDAZOLE PO SCH ×3 (07:17→21:54)
[2019-02-16] MEDS: PATIENT'S OWN MEDICATION (NON-FORMULARY) (Amlodipine Besylate [Norvasc -] 10 MG) PO SCH (09:53)
[2019-02-16] MEDS: PANTOPRAZOLE SODIUM PO SCH (09:54)
[2019-02-16] MEDS: PATIENT'S OWN MEDICATION (NON-FORMULARY) (Folic Acid - [Folic Acid -] 1 MG) PO SCH (09:54)
[2019-02-16] MEDS: SENNOSIDES PO SCH (09:54)
[2019-02-16] MEDS: DOCUSATE SODIUM 100 MG PO SCH (09:54)
[2019-02-16] MEDS: NICOTINE 7 MG/24 HOURS TOPICAL PATCH TD SCH (09:55)
[2019-02-16] MEDS: PRENATAL VITAMINS W/ FOLIC ACID TABLET (FP) PO SCH (09:55)
[2019-02-16] MEDS: RIFAXIMIN PO SCH ×2 (09:55→21:10)
[2019-02-16] MEDS: THIAMINE HCL 100 MG TABLET (FP) PO SCH (21:11)
[2019-02-16] MEDS: MELATONIN 5 MG TABLETS PO PRN (21:11)
[2019-02-17] MEDS ORDERED: METHADONE HCL 10 MG TABLET PO SCH (06:00)
[2019-02-17] MEDS ORDERED: METHADONE HCL 40 MG DISPERSABLE TABLET ONE (06:14)
[2019-02-17] MEDS ORDERED: METHADONE HCL 10 MG TABLET ONE (06:14)
[2019-02-17] MEDS: METHADONE 40 MG, METHADONE 20 MG PO SCH (06:14)
[2019-02-17] MEDS: PRENATAL VITAMINS W/ FOLIC ACID TABLET (FP) PO SCH (09:58)
[2019-02-17] MEDS: SENNOSIDES PO SCH (09:58)
[2019-02-17] MEDS: RIFAXIMIN PO SCH ×2 (09:58→21:09)
[2019-02-17] MEDS: PATIENT'S OWN MEDICATION (NON-FORMULARY) (Folic Acid - [Folic Acid -] 1 MG) PO SCH (09:59)
[2019-02-17] MEDS: DOCUSATE SODIUM 100 MG PO SCH (09:59)
[2019-02-17] MEDS: PATIENT'S OWN MEDICATION (NON-FORMULARY) (Amlodipine Besylate [Norvasc -] 10 MG) PO SCH (09:59)
[2019-02-17] MEDS: PANTOPRAZOLE SODIUM PO SCH (09:59)
[2019-02-17] MEDS: NICOTINE 7 MG/24 HOURS TOPICAL PATCH TD SCH (09:59)
[2019-02-17] MEDS: MELATONIN 5 MG TABLETS PO PRN (21:09)
[2019-02-17] MEDS: THIAMINE HCL 100 MG TABLET (FP) PO SCH (21:09)
[2019-02-18] MEDS ORDERED: METHADONE HCL 10 MG TABLET ONE (02:44)
[2019-02-18] MEDS ORDERED: METHADONE HCL 40 MG DISPERSABLE TABLET ONE (02:44)
[2019-02-18] MEDS: METHADONE 40 MG, METHADONE 20 MG PO SCH (06:09)
[2019-02-18] MEDS: PRENATAL VITAMINS W/ FOLIC ACID TABLET (FP) PO SCH (10:11)
[2019-02-18] MEDS: SENNOSIDES PO SCH (10:11)
[2019-02-18] MEDS: PATIENT'S OWN MEDICATION (NON-FORMULARY) (Folic Acid - [Folic Acid -] 1 MG) PO SCH (10:11)
[2019-02-18] MEDS: RIFAXIMIN PO SCH ×2 (10:12→21:15)
[2019-02-18] MEDS: PATIENT'S OWN MEDICATION (NON-FORMULARY) (Amlodipine Besylate [Norvasc -] 10 MG) PO SCH (10:12)
[2019-02-18] MEDS: PANTOPRAZOLE SODIUM PO SCH (10:12)
[2019-02-18] MEDS: DOCUSATE SODIUM 100 MG PO SCH (10:12)
[2019-02-18] MEDS: NICOTINE 7 MG/24 HOURS TOPICAL PATCH TD SCH (10:13)
[2019-02-18] MEDS: THIAMINE HCL 100 MG TABLET (FP) PO SCH (21:14)
[2019-02-18] MEDS: MELATONIN 5 MG TABLETS PO PRN (21:15)
[2019-02-19] MEDS ORDERED: METHADONE HCL 10 MG TABLET ONE (05:56)
[2019-02-19] MEDS ORDERED: METHADONE HCL 40 MG DISPERSABLE TABLET ONE (05:56)
[2019-02-19] MEDS: METHADONE 40 MG, METHADONE 20 MG PO SCH (06:15)
[2019-02-19] MEDS: RIFAXIMIN PO SCH ×2 (09:56→21:10)
[2019-02-19] MEDS: SENNOSIDES PO SCH (09:56)
[2019-02-19] MEDS: PRENATAL VITAMINS W/ FOLIC ACID TABLET (FP) PO SCH (09:56)
[2019-02-19] MEDS: NICOTINE 7 MG/24 HOURS TOPICAL PATCH TD SCH (09:56)
[2019-02-19] MEDS: PATIENT'S OWN MEDICATION (NON-FORMULARY) (Folic Acid - [Folic Acid -] 1 MG) PO SCH (09:57)
[2019-02-19] MEDS: PATIENT'S OWN MEDICATION (NON-FORMULARY) (Amlodipine Besylate [Norvasc -] 10 MG) PO SCH (09:57)
[2019-02-19] MEDS: PANTOPRAZOLE SODIUM PO SCH (09:57)
[2019-02-19] MEDS: DOCUSATE SODIUM 100 MG PO SCH (09:58)
[2019-02-19] MEDS: THIAMINE HCL 100 MG TABLET (FP) PO SCH (21:10)
[2019-02-19] MEDS: MELATONIN 5 MG TABLETS PO PRN (21:10)
[2019-02-20] MEDS ORDERED: METHADONE HCL 10 MG TABLET ONE (05:56)
[2019-02-20] MEDS ORDERED: METHADONE HCL 40 MG DISPERSABLE TABLET ONE (05:57)
[2019-02-20] MEDS: METHADONE 40 MG, METHADONE 20 MG PO SCH (06:03)
[2019-02-20] MEDS: PATIENT'S OWN MEDICATION (NON-FORMULARY) (Amlodipine Besylate [Norvasc -] 10 MG) PO SCH (09:57)
[2019-02-20] MEDS: PATIENT'S OWN MEDICATION (NON-FORMULARY) (Folic Acid - [Folic Acid -] 1 MG) PO SCH (09:58)
[2019-02-20] MEDS: DOCUSATE SODIUM 100 MG PO SCH (09:58)
[2019-02-20] MEDS: PANTOPRAZOLE SODIUM PO SCH (09:59)
[2019-02-20] MEDS: PRENATAL VITAMINS W/ FOLIC ACID TABLET (FP) PO SCH (09:59)
[2019-02-20] MEDS: NICOTINE 7 MG/24 HOURS TOPICAL PATCH TD SCH (09:59)
[2019-02-20] MEDS: SENNOSIDES PO SCH (10:00)
[2019-02-20] MEDS: RIFAXIMIN PO SCH ×2 (10:00→21:22)
[2019-02-20] MEDS: THIAMINE HCL 100 MG TABLET (FP) PO SCH (21:21)
[2019-02-20] MEDS: MELATONIN 5 MG TABLETS PO PRN (21:22)
[2019-02-21] MEDS ORDERED: METHADONE HCL 10 MG TABLET ONE (05:50)
[2019-02-21] MEDS ORDERED: METHADONE HCL 40 MG DISPERSABLE TABLET ONE (05:50)
[2019-02-21] MEDS: METHADONE 40 MG, METHADONE 20 MG PO SCH (06:27)
[2019-02-21] MEDS: DOCUSATE SODIUM 100 MG PO SCH (09:34)
[2019-02-21] MEDS: PRENATAL VITAMINS W/ FOLIC ACID TABLET (FP) PO SCH (09:34)
[2019-02-21] MEDS: SENNOSIDES PO SCH (09:34)
[2019-02-21] MEDS: PATIENT'S OWN MEDICATION (NON-FORMULARY) (Amlodipine Besylate [Norvasc -] 10 MG) PO SCH (09:34)
[2019-02-21] MEDS: PATIENT'S OWN MEDICATION (NON-FORMULARY) (Folic Acid - [Folic Acid -] 1 MG) PO SCH (09:35)
[2019-02-21] MEDS: NICOTINE 7 MG/24 HOURS TOPICAL PATCH TD SCH (09:35)
[2019-02-21] MEDS: RIFAXIMIN PO SCH ×2 (09:35→21:10)
[2019-02-21] MEDS: PANTOPRAZOLE SODIUM PO SCH (09:37)
[2019-02-21] MEDS: THIAMINE HCL 100 MG TABLET (FP) PO SCH (21:10)
[2019-02-21] MEDS: MELATONIN 5 MG TABLETS PO PRN (21:11)
[2019-02-22] MEDS ORDERED: METHADONE HCL 10 MG TABLET ONE (05:51)
[2019-02-22] MEDS ORDERED: METHADONE HCL 40 MG DISPERSABLE TABLET ONE (05:52)
[2019-02-22] MEDS: METHADONE 40 MG, METHADONE 20 MG PO SCH (06:08)
[2019-02-22] MEDS: DOCUSATE SODIUM 100 MG PO SCH (09:36)
[2019-02-22] MEDS: PATIENT'S OWN MEDICATION (NON-FORMULARY) (Folic Acid - [Folic Acid -] 1 MG) PO SCH (09:36)
[2019-02-22] MEDS: RIFAXIMIN PO SCH ×2 (09:36→21:07)
[2019-02-22] MEDS: SENNOSIDES PO SCH (09:37)
[2019-02-22] MEDS: PATIENT'S OWN MEDICATION (NON-FORMULARY) (Amlodipine Besylate [Norvasc -] 10 MG) PO SCH (09:37)
[2019-02-22] MEDS: PANTOPRAZOLE 40 MG TABLET (FP) PO SCH (09:37)
[2019-02-22] MEDS: PRENATAL VITAMINS W/ FOLIC ACID TABLET (FP) PO SCH (09:37)
[2019-02-22] MEDS: NICOTINE 7 MG/24 HOURS TOPICAL PATCH TD SCH (09:38)
[2019-02-22] MEDS: MELATONIN 5 MG TABLETS PO PRN (21:08)
[2019-02-22] MEDS: THIAMINE HCL 100 MG TABLET (FP) PO SCH (21:08)
[2019-02-23 07:13] VITALS: TEMP 97.7
[2019-02-23] MEDS ORDERED: METHADONE HCL 10 MG TABLET PO SCH (07:45)
[2019-02-23] MEDS ORDERED: METHADONE 40 MG, METHADONE 20 MG PO SCH (08:00)
[2019-02-23] MEDS ORDERED: METHADONE HCL 40 MG DISPERSABLE TABLET ONE (08:13)
[2019-02-23] MEDS ORDERED: METHADONE HCL 10 MG TABLET ONE (08:13)
--- NOTE | 2019-02-23 09:46 | DS ---
[facility] Rehab Discharge Summary - [facility] Rehab Discharge Summary Admission Date: 02/09/19 Discharge Date: 02/24/19 - History Present History: Alcohol dependence, MMTP Additional Comments: Pt is a 38 y/o male admitted to rehab with a hx of alcohol use disorder scheduled to discharge today. Pt has a prior referral from [facility] for follow up of his medical condition and declined to make appointment from rehab stating to this provider and his counselor,Emory Jones that his sister will make the appointment after he leaves here today. This ad writer called the referral site to confirm if pt had prior appointment but non in existence. Pertinent Past History: HTN GERD Hx liver Failure Jaundice - Discharge Physical Exam Vital Signs: Vital Signs Temperature 97.7 F 02/23/19 07:12 Pulse Rate 92 H 02/23/19 07:12 Respiratory Rate 18 02/23/19 07:12 Blood Pressure 106/69 02/23/19 07:12 O2 Sat by Pulse Oximetry (%) Alert o x 3 nad oob with ambulates with steady gait. Heent:Normocephalic,eomi,gianna,sclera icteric cardiac:s1 s2,rrr neck;supple, lungs:cta,nida. abdomen:+bs, distended,nt. extremities/skin:no edema,brown skin patches of discoloration on lower legs, full ROM;skin intact but jaundiced. Pertinent Admission Physical Exam Findings: Laboratory Tests 02/12/19 02/12/19 02/12/19 08:40 08:40 08:40 WBC 9.8 RBC 3.33 L Hgb 11.3 L Hct 34.5 L MCV 103.7 H MCH 34.1 H MCHC 32.8 RDW 14.3 Plt Count 224 MPV 9.5 Sodium 134 L Potassium 4.7 Chloride 98 Carbon Dioxide 29 Anion Gap 7 L BUN 5.6 L Creatinine 0.6 Est GFR (CKD-EPI)AfAm 147.82 Est GFR (CKD-EPI)NonAf 127.55 Random Glucose 115 H Calcium 8.2 L Total Bilirubin 2.3 H AST 55 H ALT 50 Alkaline Phosphatase 99 Ammonia 10.90 L Total Protein 7.0 Albumin 2.4 L Urine Color Urine Appearance Urine pH Ur Specific [place] Urine Protein Urine Glucose (UA) Urine Ketones Urine Blood Urine Nitrite Urine Bilirubin Urine Urobilinogen Ur Leukocyte Esterase Urine WBC (Auto) Urine RBC (Auto) Urine Casts (Auto) U Epithel Cells (Auto) Urine Bacteria (Auto) 02/13/19 10:25 WBC RBC Hgb Hct MCV MCH MCHC RDW Plt Count MPV Sodium Potassium Chloride Carbon Dioxide Anion Gap BUN Creatinine Est GFR (CKD-EPI)AfAm Est GFR (CKD-EPI)NonAf Random Glucose Calcium Total Bilirubin AST ALT Alkaline Phosphatase Ammonia Total Protein Albumin Urine Color Dk yellow Urine Appearance Clear Urine pH 7.0 D Ur Specific [place] 1.009 L Urine Protein Negative Urine Glucose (UA) Negative Urine Ketones Negative Urine Blood Negative Urine Nitrite Negative Urine Bilirubin Negative Urine Urobilinogen 0.2 Ur Leukocyte Esterase 1+ H Urine WBC (Auto) 9 Urine RBC (Auto) 4 Urine Casts (Auto) 6 U Epithel Cells (Auto) 1.9 Urine Bacteria (Auto) 10.8 Pt instructed to take lab results given on discharge to primary care appointment. - Treatment Discharge Condition: Discharge condition good - Medication Discharge Medications: Ambulatory Orders Folic Acid - 1 mg PO DAILY #30 tablet 02/05/19 Methadone [Dolophine -] 60 mg PO DAILY #30 tab.disper MDD 60 02/05/19 Rifaximin [Xifaxan -] 550 mg PO BID #60 tablet 02/05/19 Thiamine HCl [Vitamin B1 Injection -] 200 mg PO DAILY #30 vial 02/05/19 Docusate Sodium [Stool Softener] 100 mg PO DAILY #30 capsule 02/06/19 Sennosides [Senna -] 1 tab PO DAILY #30 tablet 02/06/19 Amlodipine Besylate [Norvasc -] 10 mg PO DAILY 02/09/19 Pantoprazole Sodium [Protonix -] 40 mg PO DAILY #14 tablet.ec 02/23/19 - Medication-Assisted Treatment (MAT) Medication-Assisted Treatment (MAT): No - Discharge Instructions Diet, activity, other medical instructions: Diet:SANDRA Activity: oob ad bobby Other medical instructions:Follow up with primary care referral within 1 week after discharge at: Since you do not have a Primary care Physician, we referred you to our [facility] on [address]; please call for appointment [phone] within one week to schedule an appointment with Dr. Marquez ( supervisor ticket sales is dr. Talbert ) Please have repeat blood work (CBC and BMP) within one week during your appointment at [facility]. Pt states today that his sister will call and make this appointment after discharge from rehab today Declined effort of staff helping to make appointment for him before discharge today with above clinical statistics manager on the phone witnessing the refusal - Diagnosis (1) Hypertension Status: Chronic Qualifiers: Hypertension type: essential hypertension Qualified Code(s): I10 - Essential (primary) hypertension (2) Methadone maintenance therapy patient Status: Chronic (3) History of liver failure Status: Chronic (4) Hx of jaundice Status: Chronic - Follow-up Referral Minutes to complete discharge: 30 - AMA Did Patient Leave Against Medical Advice: No Additional Comments: Pt has own meds with him as above list and will follow up with primary care after discharge from rehab today. 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
[2019-02-23] MEDS: SENNOSIDES PO SCH (10:36)
[2019-02-23] MEDS: PRENATAL VITAMINS W/ FOLIC ACID TABLET (FP) PO SCH (10:36)
[2019-02-23] MEDS: DOCUSATE SODIUM 100 MG PO SCH (10:36)
[2019-02-23] MEDS: PANTOPRAZOLE 40 MG TABLET (FP) PO SCH (10:36)
[2019-02-23] MEDS: PATIENT'S OWN MEDICATION (NON-FORMULARY) (Folic Acid - [Folic Acid -] 1 MG) PO SCH (10:37)
[2019-02-23] MEDS: RIFAXIMIN PO SCH (10:37)
[2019-02-23] MEDS: PATIENT'S OWN MEDICATION (NON-FORMULARY) (Amlodipine Besylate [Norvasc -] 10 MG) PO SCH (10:37)
[2019-02-23] MEDS: NICOTINE 7 MG/24 HOURS TOPICAL PATCH TD SCH (10:38)
[2019-02-23 11:31] VITALS: BP 109/73; PULSE 106
== END 2019-02-23 10:45 | disposition home or self-care (01) | DRG 772 ==
LOC: YASAS 09:04 → Y5N 10:34
PROVIDERS: ADMIT Neuromusculoskeletal Medicine & OMM; ATTEND Neuromusculoskeletal Medicine & OMM
PROC: HZ42ZZZ Group Counseling for Substance Abuse Treatment, Cognitive-Behavioral (ICD-10-PCS; principal; 2019-02-09)
DX: F10.20 Alcohol dependence, uncomplicated (principal); F11.20 Opioid dependence, uncomplicated; F17.210 Nicotine dependence, cigarettes, uncomplicated; I10 Essential (primary) hypertension; K21.9 Gastro-esophageal reflux disease without esophagitis; K59.00 Constipation, unspecified; Z87.19 Personal history of other diseases of the digestive system; Z86.69 Personal history of other diseases of the nervous system and sense organs
CPT/HCPCS: 36415; 80053; 81003; 82140; 85027

== ENCOUNTER 2019-04-03 17:52 | Inpatient (IN) | payer OTHER ==
[2019-04-03 19:50] VITALS: BMI 33.6
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
[2019-04-03] MEDS ORDERED: MAGNESIUM CITRATE 300 ML BOTTLE PO PRN (21:54)
[2019-04-03] MEDS ORDERED: DICYCLOMINE HCL 10 MG CAPSULE PO PRN (21:54)
[2019-04-03] MEDS ORDERED: guaiFENesin 200 MG/10 ML 10 ML UNIT-DOSE CUPS PO PRN (21:54)
[2019-04-03] MEDS ORDERED: MAG HYDROX/AL HYDROX/SIMETH 30 ML UNIT-DOSE CUP PO PRN (21:54)
[2019-04-03] MEDS ORDERED: chlordiazePOXIDE HCL 25 MG CAPSULE PO PRN (21:54)
[2019-04-03] MEDS ORDERED: IBUPROFEN 400 MG TABLET (FP) PO PRN ×2 (21:54)
[2019-04-03] MEDS ORDERED: MAGNESIUM HYDROX 2400MG/30ML ORAL SUSPENSION 30 ML CUP PO PRN (21:54)
[2019-04-03] MEDS ORDERED: BISMUTH SUBSALICYLATE 524 MG/30 ML UD PO PRN (21:54)
[2019-04-03] MEDS ORDERED: hydrOXYzine PAMOATE 25 MG CAPSULE (FP) PO PRN (21:54)
[2019-04-03] MEDS ORDERED: NICOTINE POLACRILEX 4 MG GUM BUC PRN (21:54)
[2019-04-03] MEDS ORDERED: ACETAMINOPHEN 325 MG TABLET (FP) PO PRN ×2 (21:54)
[2019-04-03] MEDS ORDERED: P-EPHED 60MG/TRIPROLIDI 2.5MG TABLET PO PRN (21:54)
[2019-04-03] MEDS: chlordiazePOXIDE HCL 25 MG CAPSULE PO SCH (23:01)
[2019-04-03] MEDS: THIAMINE HCL 100 MG TABLET (FP) PO SCH (23:01)
[2019-04-03] MEDS: MELATONIN 5 MG TABLETS PO PRN (23:04)
[2019-04-04] MEDS: chlordiazePOXIDE HCL 25 MG CAPSULE PO SCH ×4 (05:06→22:13)
[2019-04-04] MEDS ORDERED: hydrOXYzine PAMOATE 25 MG CAPSULE (FP) PO PRN (09:27)
[2019-04-04] MEDS ORDERED: METHADONE HCL 40 MG DISPERSABLE TABLET PO SCH (09:30)
[2019-04-04] MEDS: PRENATAL VITAMINS W/ FOLIC ACID TABLET (FP) PO SCH (10:01)
[2019-04-04] MEDS: NICOTINE 14 MG/24 HOURS TOPICAL PATCH TD SCH (10:01)
[2019-04-04] MEDS: amLODIPine BESYLATE 10 MG TABLET (FP) PO SCH (10:01)
[2019-04-04] MEDS: PANTOPRAZOLE 40 MG TABLET (FP) PO SCH (10:01)
--- NOTE | 2019-04-04 10:25 | PN ---
S Progress Note Note: Methadone dose 60mg po daily [facility] by Michelle Kenney RN [phone]. Last dose on 04/03/2019. EKG showed prolonged QTc of 495. Will give 20mg po daily and monitor EKG. Importance of change in treatment regimen discussed with pt. Pt verbalized understanding. EKG to be repeated prior to discharge.
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
[2019-04-04 10:54] LABS: ALBUMIN 3.5 g/dl (3.4-5.0); BILIRUBIN,TOTAL 0.7 mg/dL (0.2-1); BLOOD UREA NITROGEN 8.9 mg/dL (7-18); CALCIUM 8.8 mg/dL (8.5-10.1); CREATININE 0.5 mg/dL (0.55-1.3); POTASSIUM 3.5 mmol/L (3.5-5.1); TOT PROT 8.3 g/dl (6.4-8.2)
[2019-04-04 11:06] LABS: HEMATOCRIT 41.8 % (35.4-49); MCH 31.1 pg (25.7-33.7); MCHC 33.5 g/dl (32.0-35.9); MEAN CELL VOLUME 92.9 fl (80-96); MEAN PLT VOLUME 8.1 fl (7.5-11.1); PLATELET COUNT 135 K/MM3 (134-434); RDW 13.7 % (11.9-15.9); WHITE BLOOD COUNT 5.5 K/mm3 (4.0-10.0)
[2019-04-04] MEDS: METHADONE HCL 10 MG TABLET PO SCH (11:17)
--- NOTE | 2019-04-04 12:42 | PN ---
[facility] CIWA - CIWA Score Nausea/Vomitin-No Nausea/No Vomiting Muscle Tremors: 2 Anxiety: 2 Agitation: 0-Normal Activity Paroxysmal Sweats: 3 Orientation: 1-Uncertain about Date Tacttile Disturbances: 0-None Auditory Disturbances: 0-None Visual Disturbances: 0-None Headache: 1-Very Mild CIWA-Ar Total Score: 9 S Progress Note (SOAP) Subjective: c/o headache, shakes, anxiety, and sweats. Objective: 04/04/19 12:38 Vital Signs 04/04/19 04/04/19 04/04/19 06:37 09:26 12:34 Temperature 97 F L 96.8 F L 96.7 F L Pulse Rate 89 88 81 Respiratory 18 18 20 Rate Blood Pressure 145/85 146/91 140/99 Laboratory Last Values WBC 5.5 K/mm3 (4.0-10.0) 04/04/19 07:50 RBC 4.50 M/mm3 (4.00-5.60) 04/04/19 07:50 Hgb 14.0 GM/dL (11.7-16.9) 04/04/19 07:50 Hct 41.8 % (35.4-49) D 04/04/19 07:50 MCV 92.9 fl (80-96) D 04/04/19 07:50 MCH 31.1 pg (25.7-33.7) 04/04/19 07:50 MCHC 33.5 g/dl (32.0-35.9) 04/04/19 07:50 RDW 13.7 % (11.9-15.9) 04/04/19 07:50 Plt Count 135 K/MM3 (134-434) D 04/04/19 07:50 MPV 8.1 fl (7.5-11.1) D 04/04/19 07:50 Sodium 140 mmol/L (136-145) 04/04/19 07:50 Potassium 3.5 mmol/L (3.5-5.1) 04/04/19 07:50 Chloride 101 mmol/L (98-107) 04/04/19 07:50 Carbon Dioxide 29 mmol/L (21-32) 04/04/19 07:50 Anion Gap 11 MMOL/L (8-16) 04/04/19 07:50 BUN 8.9 mg/dL (7-18) 04/04/19 07:50 Creatinine 0.5 mg/dL (0.55-1.3) L 04/04/19 07:50 Est GFR (CKD-EPI)AfAm 159.33 04/04/19 07:50 Est GFR (CKD-EPI)NonAf 137.47 04/04/19 07:50 Random Glucose 80 mg/dL (74-106) 04/04/19 07:50 Calcium 8.8 mg/dL (8.5-10.1) 04/04/19 07:50 Total Bilirubin 0.7 mg/dL (0.2-1) 04/04/19 07:50 AST 84 U/L (15-37) H 04/04/19 07:50 ALT 72 U/L (13-61) H 04/04/19 07:50 Alkaline Phosphatase 150 U/L (45-117) H 04/04/19 07:50 Ammonia 108.60 umol/L (11-32) H 04/04/19 07:50 Total Protein 8.3 g/dl (6.4-8.2) H 04/04/19 07:50 Albumin 3.5 g/dl (3.4-5.0) 04/04/19 07:50 Labs noted with ammonia level of 108.60. Assessment: 04/04/19 12:39 AOX3, in no acute respiratory distress. Full ROM, ambulating in the unit. withdrawal symptoms. Elevated ammonia level. 04/04/19 12:42 As per H&P, CLIENT WAS RECENTLY HOSPITALIZED APPROXIMATELY 2 MONTHS AGO FOR CONFUSION, ? HEPATIC ENCEPHALOPATHY, RESP FAILURE- INTUBATED, ELEVATED AMMONIA LEVEL. AT [facility]. HE WAS STABILIZED AFTER A FEW DAYS IN ICU. Plan: send to ED for evaluation. verbal report given to dr. Cecil Beverly at [facility] ED.
[2019-04-04] MEDS: METHOCARBAMOL 500 MG TABLET PO PRN (19:08)
[2019-04-04] MEDS: THIAMINE HCL 100 MG TABLET (FP) PO SCH (22:13)
[2019-04-04] MEDS: MELATONIN 5 MG TABLETS PO PRN (22:14)
[2019-04-04] MEDS: RIFAXIMIN 550 MG TABLET (UD) PO SCH (22:43)
[2019-04-05] MEDS: chlordiazePOXIDE HCL 25 MG CAPSULE PO SCH ×2 (05:27→13:07)
[2019-04-05] MEDS: METHADONE HCL 10 MG TABLET PO SCH (05:27)
[2019-04-05] MEDS: PRENATAL VITAMINS W/ FOLIC ACID TABLET (FP) PO SCH (10:29)
[2019-04-05] MEDS: PANTOPRAZOLE 40 MG TABLET (FP) PO SCH (10:29)
[2019-04-05] MEDS: RIFAXIMIN 550 MG TABLET (UD) PO SCH ×2 (10:29→22:13)
[2019-04-05] MEDS: amLODIPine BESYLATE 10 MG TABLET (FP) PO SCH (10:29)
[2019-04-05] MEDS: NICOTINE 14 MG/24 HOURS TOPICAL PATCH TD SCH (10:30)
[2019-04-05] MEDS ORDERED: LORazepam 1 MG TABLET PO PRN (12:42)
--- NOTE | 2019-04-05 13:06 | PN ---
S CIWA - CIWA Score Nausea/Vomitin-No Nausea/No Vomiting Muscle Tremors: 2 Anxiety: 2 Agitation: 2 Paroxysmal Sweats: No Perspiration Orientation: 0-Oriented Tacttile Disturbances: 0-None Auditory Disturbances: 0-None Visual Disturbances: 0-None Headache: 0-None Present CIWA-Ar Total Score: 6 BHS Progress Note (SOAP) Subjective: 38 years old male admitted on 04/03/19 for alcohol withdrawal sx management treated with librium detox regimen due to ammonia level elevation discontinue librium begin ativan detox regimen ammonia 30 as per ER report Objective: 04/05/19 13:12 Vital Signs Temperature 96.3 F L 04/05/19 09:19 Pulse Rate 94 H 04/05/19 09:19 Respiratory Rate 18 04/05/19 09:19 Blood Pressure 160/104 H 04/05/19 09:19 O2 Sat by Pulse Oximetry (%) Laboratory Last Values WBC 5.5 K/mm3 (4.0-10.0) 04/04/19 07:50 RBC 4.50 M/mm3 (4.00-5.60) 04/04/19 07:50 Hgb 14.0 GM/dL (11.7-16.9) 04/04/19 07:50 Hct 41.8 % (35.4-49) D 04/04/19 07:50 MCV 92.9 fl (80-96) D 04/04/19 07:50 MCH 31.1 pg (25.7-33.7) 04/04/19 07:50 MCHC 33.5 g/dl (32.0-35.9) 04/04/19 07:50 RDW 13.7 % (11.9-15.9) 04/04/19 07:50 Plt Count 135 K/MM3 (134-434) D 04/04/19 07:50 MPV 8.1 fl (7.5-11.1) D 04/04/19 07:50 Sodium 140 mmol/L (136-145) 04/04/19 07:50 Potassium 3.5 mmol/L (3.5-5.1) 04/04/19 07:50 Chloride 101 mmol/L (98-107) 04/04/19 07:50 Carbon Dioxide 29 mmol/L (21-32) 04/04/19 07:50 Anion Gap 11 MMOL/L (8-16) 04/04/19 07:50 BUN 8.9 mg/dL (7-18) 04/04/19 07:50 Creatinine 0.5 mg/dL (0.55-1.3) L 04/04/19 07:50 Est GFR (CKD-EPI)AfAm 159.33 04/04/19 07:50 Est GFR (CKD-EPI)NonAf 137.47 04/04/19 07:50 Random Glucose 80 mg/dL (74-106) 04/04/19 07:50 Calcium 8.8 mg/dL (8.5-10.1) 04/04/19 07:50 Total Bilirubin 0.7 mg/dL (0.2-1) 04/04/19 07:50 AST 84 U/L (15-37) H 04/04/19 07:50 ALT 72 U/L (13-61) H 04/04/19 07:50 Alkaline Phosphatase 150 U/L (45-117) H 04/04/19 07:50 Ammonia 108.60 umol/L (11-32) H 04/04/19 07:50 Total Protein 8.3 g/dl (6.4-8.2) H 04/04/19 07:50 Albumin 3.5 g/dl (3.4-5.0) 04/04/19 07:50 lab noted 04/05/19 13:17 according to ER report that ammonia level is 30 up patient transferred back to [facility] for detox Assessment: 04/05/19 13:17 alcohol withdrawal sx Plan: continue ativan detox regimen discontinue tylenal
[2019-04-05] MEDS ORDERED: cloNIDine HCL 0.1 MG TABLET PO PRN (13:15)
[2019-04-05 13:18] LABS: EPI CELLS 2.6 /HPF (0-5/HPF); HYALINE CASTS 1 /lpf (0-8); URINE APPEARANCE CLEAR; URINE BACTERIA 5.3 /hpf (NEGATIVE); URINE BILIRUBIN NEGATIVE (NEGATIVE); URINE COLOR DK YELLOW; URINE GLUCOSE (UA) NEGATIVE (NEGATIVE); URINE KETONE NEGATIVE (NEGATIVE); URINE LEUK ESTERASE 1+ (NEGATIVE); URINE NITRITE NEGATIVE (NEGATIVE); URINE PROTEIN 1+ (NEGATIVE); URINE RBC 9 /hpf (0-4); URINE WBC 4 /hpf (0-5)
[2019-04-05] MEDS: LORazepam 0.5 MG TABLET PO SCH ×2 (17:16→22:13)
[2019-04-05] MEDS: THIAMINE HCL 100 MG TABLET (FP) PO SCH (22:13)
[2019-04-05] MEDS: MELATONIN 5 MG TABLETS PO PRN (22:14)
[2019-04-06] MEDS ORDERED: chlordiazePOXIDE HCL 10 MG CAPSULE PO PRN
[2019-04-06] MEDS ORDERED: LORazepam 1 MG TABLET PO PRN (00:05)
[2019-04-06] MEDS ORDERED: chlordiazePOXIDE HCL 10 MG CAPSULE PO SCH (05:00)
[2019-04-06] MEDS: LORazepam 0.5 MG TABLET PO SCH ×3 (05:31→22:57)
[2019-04-06] MEDS: METHADONE HCL 10 MG TABLET PO SCH (05:32)
[2019-04-06] MEDS: NICOTINE 14 MG/24 HOURS TOPICAL PATCH TD SCH (10:17)
[2019-04-06] MEDS: PRENATAL VITAMINS W/ FOLIC ACID TABLET (FP) PO SCH (10:17)
[2019-04-06] MEDS: PANTOPRAZOLE 40 MG TABLET (FP) PO SCH (10:17)
[2019-04-06] MEDS: amLODIPine BESYLATE 10 MG TABLET (FP) PO SCH (10:17)
[2019-04-06] MEDS: RIFAXIMIN 550 MG TABLET (UD) PO SCH ×2 (10:38→22:14)
--- NOTE | 2019-04-06 11:12 | PN ---
S CIWA - CIWA Score Nausea/Vomitin-No Nausea/No Vomiting Muscle Tremors: 1-None Visible, but [place] Anxiety: 2 Agitation: 0-Normal Activity Paroxysmal Sweats: No Perspiration Orientation: 0-Oriented Tacttile Disturbances: 0-None Auditory Disturbances: 0-None Visual Disturbances: 0-None Headache: 0-None Present CIWA-Ar Total Score: 3 BHS Progress Note (SOAP) Subjective: 38 years old male admitted on 04/03/19 for alcohol withdrawal sx management treated with ativan detox regimen long history of liver cirrhosis continue ativan detox regimen Objective: 04/06/19 11:13 Vital Signs Temperature 96.2 F L 04/06/19 09:03 Pulse Rate 80 04/06/19 09:03 Respiratory Rate 18 04/06/19 09:03 Blood Pressure 131/89 04/06/19 09:03 O2 Sat by Pulse Oximetry (%) Laboratory Last Values WBC 5.5 K/mm3 (4.0-10.0) 04/04/19 07:50 RBC 4.50 M/mm3 (4.00-5.60) 04/04/19 07:50 Hgb 14.0 GM/dL (11.7-16.9) 04/04/19 07:50 Hct 41.8 % (35.4-49) D 04/04/19 07:50 MCV 92.9 fl (80-96) D 04/04/19 07:50 MCH 31.1 pg (25.7-33.7) 04/04/19 07:50 MCHC 33.5 g/dl (32.0-35.9) 04/04/19 07:50 RDW 13.7 % (11.9-15.9) 04/04/19 07:50 Plt Count 135 K/MM3 (134-434) D 04/04/19 07:50 MPV 8.1 fl (7.5-11.1) D 04/04/19 07:50 Sodium 140 mmol/L (136-145) 04/04/19 07:50 Potassium 3.5 mmol/L (3.5-5.1) 04/04/19 07:50 Chloride 101 mmol/L (98-107) 04/04/19 07:50 Carbon Dioxide 29 mmol/L (21-32) 04/04/19 07:50 Anion Gap 11 MMOL/L (8-16) 04/04/19 07:50 BUN 8.9 mg/dL (7-18) 04/04/19 07:50 Creatinine 0.5 mg/dL (0.55-1.3) L 04/04/19 07:50 Est GFR (CKD-EPI)AfAm 159.33 04/04/19 07:50 Est GFR (CKD-EPI)NonAf 137.47 04/04/19 07:50 Random Glucose 80 mg/dL (74-106) 04/04/19 07:50 Calcium 8.8 mg/dL (8.5-10.1) 04/04/19 07:50 Total Bilirubin 0.7 mg/dL (0.2-1) 04/04/19 07:50 AST 84 U/L (15-37) H 04/04/19 07:50 ALT 72 U/L (13-61) H 04/04/19 07:50 Alkaline Phosphatase 150 U/L (45-117) H 04/04/19 07:50 Ammonia 108.60 umol/L (11-32) H 04/04/19 07:50 Total Protein 8.3 g/dl (6.4-8.2) H 04/04/19 07:50 Albumin 3.5 g/dl (3.4-5.0) 04/04/19 07:50 Urine Color Dk yellow 04/05/19 08:20 Urine Appearance Clear 04/05/19 08:20 Urine pH 7.0 (5.0-8.0) 04/05/19 08:20 Ur Specific [place] 1.018 (1.010-1.035) 04/05/19 08:20 Urine Protein 1+ (NEGATIVE) H 04/05/19 08:20 Urine Glucose (UA) Negative (NEGATIVE) 04/05/19 08:20 Urine Ketones Negative (NEGATIVE) 04/05/19 08:20 Urine Blood Negative (NEGATIVE) 04/05/19 08:20 Urine Nitrite Negative (NEGATIVE) 04/05/19 08:20 Urine Bilirubin Negative (NEGATIVE) 04/05/19 08:20 Urine Urobilinogen 1.0 mg/dL (0.2-1.0) 04/05/19 08:20 Ur Leukocyte Esterase 1+ (NEGATIVE) H 04/05/19 08:20 Urine WBC (Auto) 4 /hpf (0-5) 04/05/19 08:20 Urine RBC (Auto) 9 /hpf (0-4) 04/05/19 08:20 Urine Casts (Auto) 1 /lpf (0-8) 04/05/19 08:20 U Epithel Cells (Auto) 2.6 /HPF (0-5/HPF) 04/05/19 08:20 Urine Bacteria (Auto) 5.3 /hpf (NEGATIVE) 04/05/19 08:20 lab noted unable to received ammonia 30 repeat ammonia 04/06/19 11:13 Assessment: 04/06/19 11:14 alcohol withdrawal sx Plan: continue ativan detox regimen
--- NOTE | 2019-04-06 12:01 | EKG ---
Test Reason : Blood Pressure : / mmHG Vent. Rate : 080 BPM Atrial Rate : 080 BPM P-R Int : 132 ms QRS Dur : 080 ms QT Int : 430 ms P-R-T Axes : 068 -05 036 degrees QTc Int : 495 ms NORMAL SINUS RHYTHM PROLONGED QT ABNORMAL ECG WHEN COMPARED WITH ECG OF 03-APR-2019 23:29, NO SIGNIFICANT CHANGE WAS FOUND Confirmed by ALEX BENAVIDEZ MD ([id number]) on 04/06/2019 12:00:55 PM Referred By: Geeta BOYLE [employer] REPAIRER Confirmed By:ALEX BENAVIDEZ MD
--- NOTE | 2019-04-06 12:02 | EKG ---
Test Reason : Blood Pressure : / mmHG Vent. Rate : 094 BPM Atrial Rate : 094 BPM P-R Int : 130 ms QRS Dur : 084 ms QT Int : 398 ms P-R-T Axes : 066 019 039 degrees QTc Int : 497 ms NORMAL SINUS RHYTHM PROLONGED QT ABNORMAL ECG WHEN COMPARED WITH ECG OF 30-JAN-2019 12:12, T WAVE VARIATION Confirmed by ALEX BENAVIDEZ MD ([id number]) on 04/06/2019 12:01:53 PM Referred By: Confirmed By:ALEX BENAVIDEZ MD
[2019-04-06] MEDS: METHOCARBAMOL 500 MG TABLET PO PRN (17:22)
[2019-04-06] MEDS: MELATONIN 5 MG TABLETS PO PRN (22:14)
[2019-04-06] MEDS: THIAMINE HCL 100 MG TABLET (FP) PO SCH (22:14)
[2019-04-07] MEDS ORDERED: LORazepam 1 MG TABLET PO PRN (00:01)
[2019-04-07] MEDS ORDERED: chlordiazePOXIDE HCL 10 MG CAPSULE PO SCH (05:00)
[2019-04-07] MEDS: LORazepam 0.5 MG TABLET PO SCH ×2 (05:18→17:23)
[2019-04-07] MEDS: METHADONE HCL 10 MG TABLET PO SCH (05:18)
[2019-04-07] MEDS: PRENATAL VITAMINS W/ FOLIC ACID TABLET (FP) PO SCH (10:17)
[2019-04-07] MEDS: RIFAXIMIN 550 MG TABLET (UD) PO SCH ×2 (10:17→22:24)
[2019-04-07] MEDS: PANTOPRAZOLE 40 MG TABLET (FP) PO SCH (10:18)
[2019-04-07] MEDS: amLODIPine BESYLATE 10 MG TABLET (FP) PO SCH (10:18)
[2019-04-07] MEDS: MENTHOL/PHENOL 1 EACH UD MM PRN ×2 (10:25→15:10)
[2019-04-07] MEDS: NICOTINE 14 MG/24 HOURS TOPICAL PATCH TD SCH (10:46)
--- NOTE | 2019-04-07 11:25 | EKG ---
Test Reason : Blood Pressure : / mmHG Vent. Rate : 074 BPM Atrial Rate : 074 BPM P-R Int : 126 ms QRS Dur : 078 ms QT Int : 420 ms P-R-T Axes : 037 001 033 degrees QTc Int : 466 ms NORMAL SINUS RHYTHM NORMAL ECG Confirmed by MD KYRA, ASHLIE ([id number]) on 04/07/2019 11:25:05 AM Referred By: Confirmed By:ASHLIE RAE MD
--- NOTE | 2019-04-07 13:36 | PN ---
S CIWA - CIWA Score Nausea/Vomitin-No Nausea/No Vomiting Muscle Tremors: 1-None Visible, but [place] Anxiety: 1-Mildly Anxious Agitation: 0-Normal Activity Paroxysmal Sweats: No Perspiration Orientation: 0-Oriented Tacttile Disturbances: 0-None Auditory Disturbances: 0-None Visual Disturbances: 0-None Headache: 0-None Present CIWA-Ar Total Score: 2 BHS Progress Note (SOAP) Subjective: 38 years old male admitted on 04/03/19 for alcohol withdrawal sx management treated with ativan detox regimen feeling better slept through the night less tremor mild anxiety Objective: 04/07/19 13:31 Vital Signs Temperature 98.5 F 04/07/19 13:15 Pulse Rate 92 H 04/07/19 13:15 Respiratory Rate 18 04/07/19 13:15 Blood Pressure 133/93 04/07/19 13:15 O2 Sat by Pulse Oximetry (%) Laboratory Last Values WBC 5.5 K/mm3 (4.0-10.0) 04/04/19 07:50 RBC 4.50 M/mm3 (4.00-5.60) 04/04/19 07:50 Hgb 14.0 GM/dL (11.7-16.9) 04/04/19 07:50 Hct 41.8 % (35.4-49) D 04/04/19 07:50 MCV 92.9 fl (80-96) D 04/04/19 07:50 MCH 31.1 pg (25.7-33.7) 04/04/19 07:50 MCHC 33.5 g/dl (32.0-35.9) 04/04/19 07:50 RDW 13.7 % (11.9-15.9) 04/04/19 07:50 Plt Count 135 K/MM3 (134-434) D 04/04/19 07:50 MPV 8.1 fl (7.5-11.1) D 04/04/19 07:50 Sodium 140 mmol/L (136-145) 04/04/19 07:50 Potassium 3.5 mmol/L (3.5-5.1) 04/04/19 07:50 Chloride 101 mmol/L (98-107) 04/04/19 07:50 Carbon Dioxide 29 mmol/L (21-32) 04/04/19 07:50 Anion Gap 11 MMOL/L (8-16) 04/04/19 07:50 BUN 8.9 mg/dL (7-18) 04/04/19 07:50 Creatinine 0.5 mg/dL (0.55-1.3) L 04/04/19 07:50 Est GFR (CKD-EPI)AfAm 159.33 04/04/19 07:50 Est GFR (CKD-EPI)NonAf 137.47 04/04/19 07:50 Random Glucose 80 mg/dL (74-106) 04/04/19 07:50 Calcium 8.8 mg/dL (8.5-10.1) 04/04/19 07:50 Total Bilirubin 0.7 mg/dL (0.2-1) 04/04/19 07:50 AST 84 U/L (15-37) H 04/04/19 07:50 ALT 72 U/L (13-61) H 04/04/19 07:50 Alkaline Phosphatase 150 U/L (45-117) H 04/04/19 07:50 Ammonia 54.50 umol/L (11-32) H 04/07/19 08:00 Total Protein 8.3 g/dl (6.4-8.2) H 04/04/19 07:50 Albumin 3.5 g/dl (3.4-5.0) 04/04/19 07:50 Urine Color Dk yellow 04/05/19 08:20 Urine Appearance Clear 04/05/19 08:20 Urine pH 7.0 (5.0-8.0) 04/05/19 08:20 Ur Specific [place] 1.018 (1.010-1.035) 04/05/19 08:20 Urine Protein 1+ (NEGATIVE) H 04/05/19 08:20 Urine Glucose (UA) Negative (NEGATIVE) 04/05/19 08:20 Urine Ketones Negative (NEGATIVE) 04/05/19 08:20 Urine Blood Negative (NEGATIVE) 04/05/19 08:20 Urine Nitrite Negative (NEGATIVE) 04/05/19 08:20 Urine Bilirubin Negative (NEGATIVE) 04/05/19 08:20 Urine Urobilinogen 1.0 mg/dL (0.2-1.0) 04/05/19 08:20 Ur Leukocyte Esterase 1+ (NEGATIVE) H 04/05/19 08:20 Urine WBC (Auto) 4 /hpf (0-5) 04/05/19 08:20 Urine RBC (Auto) 9 /hpf (0-4) 04/05/19 08:20 Urine Casts (Auto) 1 /lpf (0-8) 04/05/19 08:20 U Epithel Cells (Auto) 2.6 /HPF (0-5/HPF) 04/05/19 08:20 Urine Bacteria (Auto) 5.3 /hpf (NEGATIVE) 04/05/19 08:20 lab noted ammonia elevation begin lactulose 04/07/19 13:32 04/07/19 13:36 Assessment: 04/07/19 13:36 alcohol withdrawal sx Plan: continue ativan detox regimen
[2019-04-07] MEDS: LACTULOSE 20 GM/30 ML UDC (FOR ORAL USE ONLY) PO SCH ×2 (15:08→22:25)
[2019-04-07] MEDS: MELATONIN 5 MG TABLETS PO PRN (22:24)
[2019-04-07] MEDS: THIAMINE HCL 100 MG TABLET (FP) PO SCH (22:24)
[2019-04-08] MEDS ORDERED: LORazepam 0.5 MG TABLET PO ONE (05:00)
[2019-04-08] MEDS ORDERED: chlordiazePOXIDE HCL 10 MG CAPSULE PO ONE (05:00)
[2019-04-08] MEDS: METHADONE HCL 10 MG TABLET PO SCH (05:44)
[2019-04-08] MEDS: LACTULOSE 20 GM/30 ML UDC (FOR ORAL USE ONLY) PO SCH (05:45)
[2019-04-08 09:14] VITALS: BP 138/99; PULSE 106; TEMP 96.2
--- NOTE | 2019-04-08 09:43 | DS ---
[facility] Detox Discharge Summary Admission Date: 04/03/19 Discharge Date: 04/08/19 - History Present History: Alcohol Dependence Additional Comments: 38 years old male admitted on 04/04/19 for alcohol withdrawal sx management treated with ativan detox regimen patient tolerated well alert oriented x 3 cardiac s1s2 regular rate rhythm respiratory right lower lob wheezing denies trouble breathing no shortness of breath speech clearly coherently skin warm and dry brisk capillary refilled extremities full range of motion Pertinent Past History: patient states that he has chronic ammonia serum elevation treated with lactulose on and off when needed patient agrees to return to [facility] for ammonia elevation follow up - Physical Exam Results Vital Signs: Vital Signs Temperature 96.2 F L 04/08/19 09:14 Pulse Rate 106 H 04/08/19 09:14 Respiratory Rate 20 04/08/19 09:14 Blood Pressure 138/99 04/08/19 09:14 O2 Sat by Pulse Oximetry (%) Pertinent Admission Physical Exam Findings: alcohol withdrawal sx Laboratory Last Values WBC 5.5 K/mm3 (4.0-10.0) 04/04/19 07:50 RBC 4.50 M/mm3 (4.00-5.60) 04/04/19 07:50 Hgb 14.0 GM/dL (11.7-16.9) 04/04/19 07:50 Hct 41.8 % (35.4-49) D 04/04/19 07:50 MCV 92.9 fl (80-96) D 04/04/19 07:50 MCH 31.1 pg (25.7-33.7) 04/04/19 07:50 MCHC 33.5 g/dl (32.0-35.9) 04/04/19 07:50 RDW 13.7 % (11.9-15.9) 04/04/19 07:50 Plt Count 135 K/MM3 (134-434) D 04/04/19 07:50 MPV 8.1 fl (7.5-11.1) D 04/04/19 07:50 Sodium 140 mmol/L (136-145) 04/04/19 07:50 Potassium 3.5 mmol/L (3.5-5.1) 04/04/19 07:50 Chloride 101 mmol/L (98-107) 04/04/19 07:50 Carbon Dioxide 29 mmol/L (21-32) 04/04/19 07:50 Anion Gap 11 MMOL/L (8-16) 04/04/19 07:50 BUN 8.9 mg/dL (7-18) 04/04/19 07:50 Creatinine 0.5 mg/dL (0.55-1.3) L 04/04/19 07:50 Est GFR (CKD-EPI)AfAm 159.33 04/04/19 07:50 Est GFR (CKD-EPI)NonAf 137.47 04/04/19 07:50 Random Glucose 80 mg/dL (74-106) 04/04/19 07:50 Calcium 8.8 mg/dL (8.5-10.1) 04/04/19 07:50 Total Bilirubin 0.7 mg/dL (0.2-1) 04/04/19 07:50 AST 84 U/L (15-37) H 04/04/19 07:50 ALT 72 U/L (13-61) H 04/04/19 07:50 Alkaline Phosphatase 150 U/L (45-117) H 04/04/19 07:50 Ammonia 54.50 umol/L (11-32) H 04/07/19 08:00 Total Protein 8.3 g/dl (6.4-8.2) H 04/04/19 07:50 Albumin 3.5 g/dl (3.4-5.0) 04/04/19 07:50 Urine Color Dk yellow 04/05/19 08:20 Urine Appearance Clear 04/05/19 08:20 Urine pH 7.0 (5.0-8.0) 04/05/19 08:20 Ur Specific Sparks 1.018 (1.010-1.035) 04/05/19 08:20 Urine Protein 1+ (NEGATIVE) H 04/05/19 08:20 Urine Glucose (UA) Negative (NEGATIVE) 04/05/19 08:20 Urine Ketones Negative (NEGATIVE) 04/05/19 08:20 Urine Blood Negative (NEGATIVE) 04/05/19 08:20 Urine Nitrite Negative (NEGATIVE) 04/05/19 08:20 Urine Bilirubin Negative (NEGATIVE) 04/05/19 08:20 Urine Urobilinogen 1.0 mg/dL (0.2-1.0) 04/05/19 08:20 Ur Leukocyte Esterase 1+ (NEGATIVE) H 04/05/19 08:20 Urine WBC (Auto) 4 /hpf (0-5) 04/05/19 08:20 Urine RBC (Auto) 9 /hpf (0-4) 04/05/19 08:20 Urine Casts (Auto) 1 /lpf (0-8) 04/05/19 08:20 U Epithel Cells (Auto) 2.6 /HPF (0-5/HPF) 04/05/19 08:20 Urine Bacteria (Auto) 5.3 /hpf (NEGATIVE) 04/05/19 08:20 RPR Titer Nonreactive (NONREACTIVE) 04/04/19 07:50 lab noted ammonia gradually lowering with the treatment of lactulose - Treatment Hospital Course: Detox Protocol Followed, Detoxed Safely, Responded well, Discharged Condition Good, Rehab Referral Accepted Patient has Accepted a Rehab Referral to: [facility] - Medication Discharge Medications: Ambulatory Orders Folic Acid - 1 mg PO DAILY #30 tablet 02/05/19 Methadone [Dolophine -] 60 mg PO DAILY #30 tab.disper MDD 60 02/05/19 Thiamine HCl [Vitamin B1 Injection -] 200 mg PO DAILY #30 vial 02/05/19 Docusate Sodium [Stool Softener] 100 mg PO DAILY #30 capsule 02/06/19 Sennosides [Senna -] 1 tab PO DAILY #30 tablet 02/06/19 Pantoprazole Sodium [Protonix -] 40 mg PO DAILY #14 tablet.ec 02/23/19 Amlodipine Besylate [Norvasc -] 10 mg PO DAILY #30 tablet 04/07/19 Lactulose (Oral Use) [Cephulac -] 20 gm PO TID #1 udc 04/07/19 Rifaximin [Xifaxan -] 550 mg PO BID #60 tablet 04/07/19 - Diagnosis (1) Alcohol dependence with withdrawal, uncomplicated Current Visit: Yes Status: Acute (2) History of positive PPD Current Visit: Yes Status: Resolved (3) Hypertension Current Visit: Yes Status: Chronic Qualifiers: Hypertension type: essential hypertension Qualified Code(s): I10 - Essential (primary) hypertension (4) Methadone maintenance therapy patient Current Visit: Yes Status: Chronic (5) Nicotine dependence Current Visit: Yes Status: Acute Qualifiers: Nicotine product type: cigarettes Substance use status: in withdrawal Qualified Code(s): F17.213 - Nicotine dependence, cigarettes, with withdrawal (6) Substance induced mood disorder Current Visit: Yes Status: Suspected (7) Hyperammonemia Current Visit: Yes Status: Chronic - AMA Did Patient Leave Against Medical Advice: No CIWA Score - CIWA Score Nausea/Vomitin-No Nausea/No Vomiting Muscle Tremors: 1-None Visible, but Newman Anxiety: 0-No Anxiety, at Ease Agitation: 0-Normal Activity Paroxysmal Sweats: No Perspiration Orientation: 0-Oriented Tacttile Disturbances: 0-None Auditory Disturbances: 0-None Visual Disturbances: 0-None Headache: 0-None Present CIWA-Ar Total Score: 1
[2019-04-08] MEDS: amLODIPine BESYLATE 10 MG TABLET (FP) PO SCH (10:04)
[2019-04-08] MEDS: PANTOPRAZOLE 40 MG TABLET (FP) PO SCH (10:04)
[2019-04-08] MEDS: NICOTINE 14 MG/24 HOURS TOPICAL PATCH TD SCH (10:04)
[2019-04-08] MEDS: PRENATAL VITAMINS W/ FOLIC ACID TABLET (FP) PO SCH (10:04)
[2019-04-08] MEDS: RIFAXIMIN 550 MG TABLET (UD) PO SCH (10:05)
== END 2019-04-08 08:47 | disposition home or self-care (01) | DRG 773 ==
LOC: YASAS 17:52 → Y3N 22:23
PROVIDERS: ADMIT Allergy & Immunology; ATTEND Allergy & Immunology
PROC: HZ2ZZZZ Detoxification Services for Substance Abuse Treatment (ICD-10-PCS; principal; 2019-04-03)
DX: F10.230 Alcohol dependence with withdrawal, uncomplicated (principal); F11.20 Opioid dependence, uncomplicated; F17.210 Nicotine dependence, cigarettes, uncomplicated; F10.282 Alcohol dependence with alcohol-induced sleep disorder; F19.24 Other psychoactive substance dependence with psychoactive substance-induced mood disorder; F32.9 Major depressive disorder, single episode, unspecified; G47.00 Insomnia, unspecified; E72.20 Disorder of urea cycle metabolism, unspecified; K21.9 Gastro-esophageal reflux disease without esophagitis; K74.60 Unspecified cirrhosis of liver; R76.11 Nonspecific reaction to tuberculin skin test without active tuberculosis; Z86.69 Personal history of other diseases of the nervous system and sense organs; Z87.19 Personal history of other diseases of the digestive system; Z87.09 Personal history of other diseases of the respiratory system
CPT/HCPCS: 36415; 80053; 81003; 82140; 85027; 86593; 93005; 93010

== ENCOUNTER 2019-04-04 13:25 | Emergency (ER) | payer OTHER ==
[2019-04-04 13:54] VITALS: BMI 33.6
--- NOTE | 2019-04-04 13:55 | PDOC ---
History of Present Illness - General Stated Complaint: ABDNORMAL LABS Time Seen by Provider: 04/04/19 13:54 History Source: Patient Exam Limitations: No Limitations (pt speaks Ukranian, but oriented and able to answer all questions appropriately) - History of Present Illness Initial Comments: Pt is a 38 yo M, with PMH of HTN, GERD, polysubstance use (nicotine, alcohol, heroin now on methadone), prior hepatic encephalopathy (previously intubated, DTs), who is presenting via EMS from [facility] for elevated ammonia level today (108). Pt has been receiving librium PO at [facility], but still endorses shaking and anxiety. Pt states yesterday he had heavy shaking and a few episodes of NBNB vomiting, but that has resolved today. He denies SI/HI and auditory or visual hallucinations. Pt states since his last discharge from [facility] (was intubated for DTs, hepatic encephalopathy), he has been taking "the liquid medicine in the bottle" (rifaximin) and has been having regular BMs. However, pt required detox again because he is drinking 3 pints of vodka per day. Pt denies any fevers/chills, headache, vision changes, syncope, chest pain, palpitations, SOB, nausea/vomiting, abdominal pain, urinary symptoms, diarrhea/ constipation, or leg swelling. Allergies: NKDA PCP: None Social: Pt smokes 3-4 cigarettes/day, 3 pints vodka/day. No current heroin use, has been compliant with methadone program. Pt denies any recent travel or sick contacts. Surgical: no relevant history. Family: no relevant history. 04/04/19 14:37 04/04/19 14:41 04/04/19 14:59 04/04/19 15:07 Past History - Travel Traveled outside of the country in the last 30 days: No Close contact w/someone who was outside of country & ill: No - Past Medical History Allergies/Adverse Reactions: Allergies Allergy/AdvReac Type Severity Reaction Status Date / Time No Known Allergies Allergy Verified 04/03/19 19:45 Home Medications: Ambulatory Orders Folic Acid - 1 mg PO DAILY #30 tablet 02/05/19 Methadone [Dolophine -] 60 mg PO DAILY #30 tab.disper MDD 60 02/05/19 Rifaximin [Xifaxan -] 550 mg PO BID #60 tablet 02/05/19 Thiamine HCl [Vitamin B1 Injection -] 200 mg PO DAILY #30 vial 02/05/19 Docusate Sodium [Stool Softener] 100 mg PO DAILY #30 capsule 02/06/19 Sennosides [Senna -] 1 tab PO DAILY #30 tablet 02/06/19 Amlodipine Besylate [Norvasc -] 10 mg PO DAILY 02/09/19 Pantoprazole Sodium [Protonix -] 40 mg PO DAILY #14 tablet.ec 02/23/19 Anemia: No Asthma: No Cancer: No Cardiac Disorders: No CVA: No COPD: No CHF: No Dementia: No Diabetes: No GI Disorders: Yes (Hx of GERD) Disorders: No HTN: Yes Hypercholesterolemia: No Kidney Stones: No Liver Disease: No Seizures: No Thyroid Disease: No - Surgical History Abdominal Surgery: No Appendectomy: No Cardiac Surgery: No Cholecystectomy: No Lung Surgery: No Neurologic Surgery: No Orthopedic Surgery: Yes (right index finger trauma at age 4) - Reproductive History Testicular Surgery: No - Immunization History Immunization Up to Date: No - Psycho Social/Smoking Cessation Hx Smoking History: Current every day smoker Have you smoked in the past 12 months: Yes Number of Cigarettes Smoked Daily: 5 Cigars Per Day: 0 Information on smoking cessation initiated: Yes 'Breaking Loose' booklet given: 04/03/19 Hx Alcohol Use: Yes Drug/Substance Use Hx: No Substance Use Type: Alcohol, Prescribed (METHADONE- MMTP) Hx Substance Use Treatment: Yes ([facility]) Review of Systems - Review of Systems Able to Perform ROS?: Yes Is the patient limited Divehi proficient: No Constitutional: Yes: Weight Stable. No: Chills, Diaphoresis, Fever, Loss of Appetite, Malaise, Weakness HEENTM: No: Recent change in vision, Nose Congestion, Throat Pain, Throat Swelling, Difficulty Swallowing Respiratory: No: Cough, Orthopnea, Shortness of Breath Cardiac (ROS): No: Chest Pain, Edema, Irregular Heart Rate, Lightheadedness, Palpitations, Syncope, Chest Tightness ABD/GI: Yes: Nausea (resolving), Vomiting (yesterday, resolved). No: Abdominal Distended, Constipated, Diarrhea, Poor Appetite, Poor Fluid Intake, Rectal Bleeding, Abdominal cramping, Tarry Stools : No: Burning, Dysuria, Frequency, Flank Pain, Incontinence, Pain, Urgency Musculoskeletal: No: Back Pain, Joint Pain, Muscle Pain, Muscle Weakness Integumentary: No: Rash, Sweating Neurological: Yes: See HPI, Tremors. No: Headache, Numbness, Seizure, Weakness , Unsteady Gait, Ataxia, Dizziness Psychiatric: Yes: Anxiety, Emotional Problems (polysubstance addicition). No: Sleep Pattern Change, Change in Appetite Endocrine: No: Excessive Sweating, Increased Urine, Change in Weight Hematologic/Lymphatic: No: Anemia, Blood Clots, Easy Bleeding, Easy Bruising All Other Systems: Reviewed and Negative *Physical Exam - Vital Signs Last Vital Signs Temp Pulse Resp BP Pulse Ox 81 20 157/97 98 04/04/19 13:48 04/04/19 13:48 04/04/19 13:48 04/04/19 13:48 - Physical Exam Vitals stable, pt afebrile, not tachycardic. Pt in NAD, but appears mildly anxious with tremors in the hands. Obese body habitus. Appears older than stated age. Pt alert and oriented x3. 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 +mild b/l hand tremor and tongue fasciculation. No midline spinal tenderness, step-offs, or crepitus. Head normocephalic, atraumatic. Eyes PERRLA, EOMI. Oropharynx without erythema or exudates, no LAD b/l. No nasal congestion. Hearing intact. Clear heart sounds, S1/S2, no JVD, b/l pedal edema, or heart murmur. Diminished lung sounds b/l bases and poor inspiratory effort, with no respiratory distress, wheezes, crackles, or accessory muscle use. No abdominal or CVA tenderness to palpation, no rebound, no guarding. Abdomen soft, protuberant but non-distended, and with normoactive bowel sounds. Skin without jaundice or rash. 04/04/19 15:06 04/04/19 15:09 ED Treatment Course - LABORATORY CBC & Chemistry Diagram: 04/04/19 14:30 04/04/19 14:30 Medical Decision Making - Medical Decision Making Pt was seen at bedside, also will be seen by attending Dr. Fregoso. Pt presenting with withdrawal symptoms, elevated ammonia level from [facility]. Pt has not been on home dose of rifaximin at Detox, has been provided PO librium only for detox. Pt with mild b/l hand tremor, CIWA score 5 in ED, tremors controlled with valium at this time. Pt protecting his airway, A/O x3, and can tolerate PO meds at this time. Will evaluate for electrolyte abnormalities, ACS, prolonged QTc. Provided 5 mg IV valium, PO lactulose, and banana bag for improvement of withdrawal. Will continue to reassess pt and monitor for symptomatic improvement. ECG: NSR, intervals WNL (HR 79, Pr 132, QRS 78, QTc 465). TWI in III, biphasic in V3-V5, with no significant ST segment changes. No significant changes from prior ECG (01/30/2019). 04/04/19 15:17 CBC and CMP WNL for the pt; LFTs improving from prior visit, ammonia in 30's. Pt tolerated PO intake of lactulose, improved after IV valium Spoke with [facility], pt will go back for further detox; discussed that pt has not been given rifaximin at Detox, Ativan/Valium as needed. Strict return precautions provided to care team at [facility] with understanding. 04/04/19 15:53 Discharge - Discharge Information Problems reviewed: Yes Clinical Impression/Diagnosis: Hyperammonemia Alcohol withdrawal Qualifiers: Complication of substance-induced condition: uncomplicated Qualified Code(s): F10.230 - Alcohol dependence with withdrawal, uncomplicated Condition: Improved Disposition: HOME - Admission No - Follow up/Referral Referrals: Robert Henley DO [Primary Care Provider] - - Patient Discharge Instructions Patient Printed Discharge Instructions: DI for Drug or Alcohol Withdrawal, DI for Delirium Tremens Additional Instructions: You were seen in the ER today for alcohol withdrawal. The results of your labs and imaging today were at your normal baseline. Please return to [facility] immediately for further detox treatment. Please return to the ER if you have any confusion, worsening tremors or shaking that is not improved by detox regimen, development of fevers or chills, loss of consciousness, inability to tolerate food or fluids, or any other concerns. - Post Discharge Activity BHS CIWA - CIWA Score Nausea/Vomitin-No Nausea/No Vomiting Muscle Tremors: 4-Moderate,w/Arms Extend Anxiety: 1-Mildly Anxious Agitation: 0-Normal Activity Paroxysmal Sweats: No Perspiration Orientation: 0-Oriented Tacttile Disturbances: 0-None Auditory Disturbances: 0-None Visual Disturbances: 0-None Headache: 0-None Present CIWA-Ar Total Score: 5
[2019-04-04] MEDS ORDERED: LACTULOSE 20 GM/30 ML UDC (FOR ORAL USE ONLY) PO ONE (14:25)
[2019-04-04] MEDS ORDERED: diazePAM CARPU-JECT 10 MG/2 ML DISP.SYRIN IVPUSH ONE (14:25)
[2019-04-04] MEDS ORDERED: diazePAM CARPU-JECT 10 MG/2 ML DISP.SYRIN ONE (14:47)
[2019-04-04] MEDS ORDERED: LACTULOSE 20 GM/30 ML UDC (FOR ORAL USE ONLY) ONE ×2 (14:47→14:52)
[2019-04-04] MEDS ORDERED: FOLIC ACID INJECTION - 1 MG, THIAMINE HCL 100 MG, MULTIVIT INJECTION ADULT 10 ML in SOD... IVPB ONE (14:48)
[2019-04-04 14:51] LABS: BASO % 1.7 % (0-2.0); EOS % 3.2 % (0-4.5); HEMOGLOBIN 14.5 GM/dL (11.7-16.9); LYMPH % 19.3 % (8-40); MCH 31.5 pg (25.7-33.7); MCHC 34.6 g/dl (32.0-35.9); MEAN CELL VOLUME 91.1 fl (80-96); MEAN PLT VOLUME 7.2 fl (7.5-11.1); MONO % 12.4 % (3.8-10.2); NEUT % 63.4 % (42.8-82.8); PLATELET COUNT 134 K/MM3 (134-434); RBC 4.61 M/mm3 (4.00-5.60); RDW 13.4 % (11.9-15.9); WHITE BLOOD COUNT 5.1 K/mm3 (4.0-10.0)
[2019-04-04 15:00] LABS: INR 1.16 (0.83-1.09); PROTHROMBIN TIME (PATIENT) 13.7 SEC (9.7-13.0)
[2019-04-04 15:22] LABS: ALBUMIN 3.5 g/dl (3.4-5.0); BILIRUBIN,TOTAL 0.8 mg/dL (0.2-1); BLOOD UREA NITROGEN 8.8 mg/dL (7-18); CALCIUM 9.2 mg/dL (8.5-10.1); CREATININE 0.5 mg/dL (0.55-1.3); MAGNESIUM 1.8 mg/dL (1.8-2.4); POTASSIUM 3.8 mmol/L (3.5-5.1); TOT PROT 8.3 g/dl (6.4-8.2)
--- NOTE | 2019-04-04 16:05 | PDOC ---
Attending Attestation - Resident Resident Name: Alexandra Dallas - ED Attending Attestation I have performed the following: I have examined & evaluated the patient, The case was reviewed & discussed with the resident, I agree w/resident's findings & plan, Exceptions are as noted - HPI HPI: 04/04/19 16:07 Agree with resident HPI - Physicial Exam PE: 04/04/19 16:07 GENERAL: Awake, alert, and fully oriented, in no acute distress. Appears older than 38 HEAD: No signs of trauma EYES: PERRLA, EOMI, sclera anicteric, conjunctiva clear ENT: Oropharynx clear without exudates. Moist mucosa. No tongue fasiculations. NECK: Normal ROM, supple, no lymphadenopathy, JVD, or masses LUNGS: Breath sounds equal, clear to auscultation bilaterally. No wheezes, and no crackles HEART: Regular rate and rhythm, normal S1 and S2, no murmurs, rubs or gallops ABDOMEN: Soft, nontender, normoactive bowel sounds. No guarding, no rebound. No masses EXTREMITIES: Normal range of motion, no edema. No clubbing or cyanosis. No cords, erythema, or tenderness. No asterixis or hand tremors NEUROLOGICAL: Normal speech, cranial nerves intact, 5/5 strength in all 4 extremities, normal sensation to light touch in all 4 extremities, normal cerebellar exam, normal gait, normal tone SKIN: Warm, Dry, normal turgor, no rashes or lesions noted. - Medical Decision Making 04/04/19 16:08 38-year-old male with a history of polysubstance abuse, currently in detox for alcohol abuse presents to the emergency department from [facility] for evaluation of alcohol withdrawal and ammonia level 100. Patient was noted to be tremulous, complaining of headaches and anxiety while at [facility] prompting transfer here for evaluation. Initially on arrival to the emergency department, patient had fine tremors and tongue fasciculations which have now resolved with Valium. Patient has not been receiving his rifaximin at [facility]. Labs were rechecked, ammonia level is 30. Clinically patient is no longer withdrawing, denies "shakes" or headache at this time after Valium. His LFTs are improving compared to previous values in our EMR. Plan at this time to send patient back to detox as he is clinically no longer withdrawing does not have an acute need for admission to the hospital. All results were discussed with the staff at [facility], Dr. Dallas recommended resuming rifaximin while at [facility]. Staff expresses understanding and accepts patient back to detox. I discussed the physical exam findings, ancillary test results and final diagnoses with the patient. I answered all of the patient's questions. The patient was satisfied with the care received and felt comfortable with the discharge plan and treatment plan. The patient will call their primary care physician within 24 hours to arrange follow-up and will return to the Emergency Department with any new, persistent or worsening symptoms.
[2019-04-04 17:55] VITALS: BP 154/96; PULSE 78; TEMP 97.5
--- NOTE | 2019-04-06 10:45 | EKG ---
Test Reason : Blood Pressure : / mmHG Vent. Rate : 079 BPM Atrial Rate : 079 BPM P-R Int : 132 ms QRS Dur : 078 ms QT Int : 406 ms P-R-T Axes : 038 010 -05 degrees QTc Int : 465 ms NORMAL SINUS RHYTHM NONSPECIFIC T WAVE ABNORMALITY ABNORMAL ECG WHEN COMPARED WITH ECG OF 04-APR-2019 06:16, T WAVE VARIATION Confirmed by ALEX BENAVIDEZ MD ([id number]) on 04/06/2019 10:45:23 AM Referred By: Confirmed By:ALEX BENAVIDEZ MD
== END 2019-04-04 18:30 | disposition home or self-care (01) ==
LOC: JER 13:25
PROC: 3E033NZ Introduction of Analgesics, Hypnotics, Sedatives into Peripheral Vein, Percutaneous Approach (ICD-10-PCS; principal; 2019-04-04)
DX: E72.20 Disorder of urea cycle metabolism, unspecified (principal); I10 Essential (primary) hypertension; Z87.19 Personal history of other diseases of the digestive system; F10.230 Alcohol dependence with withdrawal, uncomplicated; F11.10 Opioid abuse, uncomplicated; F17.210 Nicotine dependence, cigarettes, uncomplicated; R25.3 Fasciculation
CPT/HCPCS: 36415; 71045-TC-FY; 80053; 82140; 83735; 84484; 85025; 85610; 85730; 93005; 93010; 96374; 99285-25; J7030

== ENCOUNTER 2019-04-12 19:33 | Inpatient (IN) | payer OTHER ==
[2019-04-12 20:20] VITALS: BMI 31.3
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
[2019-04-12] MEDS ORDERED: ACETAMINOPHEN 325 MG TABLET (FP) PO PRN ×2 (20:41)
[2019-04-12] MEDS ORDERED: BISMUTH SUBSALICYLATE 524 MG/30 ML UD PO PRN (20:41)
[2019-04-12] MEDS ORDERED: MELATONIN 5 MG TABLETS PO PRN (20:41)
[2019-04-12] MEDS ORDERED: MAGNESIUM HYDROX 2400MG/30ML ORAL SUSPENSION 30 ML CUP PO PRN (20:41)
[2019-04-12] MEDS ORDERED: MAG HYDROX/AL HYDROX/SIMETH 30 ML UNIT-DOSE CUP PO PRN (20:41)
[2019-04-12] MEDS ORDERED: MENTHOL/PHENOL 1 EACH UD MM PRN (20:41)
[2019-04-12] MEDS ORDERED: IBUPROFEN 400 MG TABLET (FP) PO PRN (20:41)
[2019-04-12] MEDS ORDERED: diazePAM 5 MG TABLET PO PRN (20:41)
[2019-04-12] MEDS ORDERED: METHOCARBAMOL 500 MG TABLET PO PRN (20:41)
[2019-04-12] MEDS ORDERED: MAGNESIUM CITRATE 300 ML BOTTLE PO PRN (20:41)
[2019-04-12] MEDS ORDERED: hydrOXYzine PAMOATE 25 MG CAPSULE (FP) PO PRN (20:41)
[2019-04-12] MEDS ORDERED: diazePAM 5 MG TABLET PO ONE (20:41)
[2019-04-12] MEDS ORDERED: NICOTINE POLACRILEX 2 MG GUM BUC PRN (20:41)
[2019-04-12] MEDS ORDERED: THIAMINE HCL 100 MG TABLET (FP) PO SCH (22:00)
[2019-04-12] MEDS: diazePAM 5 MG TABLET PO SCH (22:40)
[2019-04-13] MEDS: diazePAM 5 MG TABLET PO SCH (05:33)
[2019-04-13] MEDS ORDERED: METHADONE HCL 10 MG TABLET PO ONE (10:00)
[2019-04-13] MEDS ORDERED: NICOTINE 14 MG/24 HOURS TOPICAL PATCH TD SCH (10:00)
[2019-04-13] MEDS ORDERED: PRENATAL VITAMINS W/ FOLIC ACID TABLET (FP) PO SCH (10:00)
[2019-04-13 11:00] LABS: HEMATOCRIT 44.3 % (35.4-49); HEMOGLOBIN 14.8 GM/dL (11.7-16.9); MCH 30.6 pg (25.7-33.7); MCHC 33.4 g/dl (32.0-35.9); MEAN CELL VOLUME 91.6 fl (80-96); MEAN PLT VOLUME 8.2 fl (7.5-11.1); PLATELET COUNT 168 K/MM3 (134-434); RBC 4.83 M/mm3 (4.00-5.60); RDW 14.2 % (11.9-15.9); WHITE BLOOD COUNT 3.8 K/mm3 (4.0-10.0)
--- NOTE | 2019-04-13 11:18 | PN ---
S Progress Note Note: i need to get out if here. Pt was advised to stay and complete his detox to prevent relapse, seizures, DT, OD and or loss. pt chose to sign out AMA.
[2019-04-13 11:21] LABS: ALBUMIN 3.8 g/dl (3.4-5.0); BILIRUBIN,TOTAL 0.5 mg/dL (0.2-1); BLOOD UREA NITROGEN 7.2 mg/dL (7-18); CALCIUM 8.9 mg/dL (8.5-10.1); CREATININE 0.6 mg/dL (0.55-1.3); TOT PROT 8.3 g/dl (6.4-8.2)
--- NOTE | 2019-04-13 11:44 | DS ---
[facility] Detox Discharge Summary Admission Date: 04/12/19 - History Present History: Alcohol Dependence, MMTP - Physical Exam Results Vital Signs: Vital Signs Temperature 97.2 F L 04/13/19 08:31 Pulse Rate 86 04/13/19 08:31 Respiratory Rate 20 04/13/19 08:31 Blood Pressure 151/93 04/13/19 08:31 O2 Sat by Pulse Oximetry (%) Pertinent Admission Physical Exam Findings: pt arrived in withdrawal sx Vital Signs Temperature 97.2 F L 04/13/19 08:31 Pulse Rate 86 04/13/19 08:31 Respiratory Rate 20 04/13/19 08:31 Blood Pressure 151/93 04/13/19 08:31 O2 Sat by Pulse Oximetry (%) Laboratory Tests 04/13/19 04/13/19 07:50 07:50 WBC 3.8 L RBC 4.83 Hgb 14.8 Hct 44.3 MCV 91.6 MCH 30.6 MCHC 33.4 RDW 14.2 Plt Count 168 D MPV 8.2 D Sodium 138 Potassium 4.0 Chloride 102 Carbon Dioxide 28 Anion Gap 8 BUN 7.2 Creatinine 0.6 Est GFR (CKD-EPI)AfAm 147.82 Est GFR (CKD-EPI)NonAf 127.55 Random Glucose 111 H Calcium 8.9 Total Bilirubin 0.5 AST 98 H ALT 152 H Alkaline Phosphatase 153 H Total Protein 8.3 H Albumin 3.8 aaox3 ambulating pt chose to sign out AMA - Treatment Hospital Course: Rehab Referral Accepted - Medication Discharge Medications: Ambulatory Orders Folic Acid - 1 mg PO DAILY #30 tablet 02/05/19 Thiamine HCl [Vitamin B1 Injection -] 200 mg PO DAILY #30 vial 02/05/19 Docusate Sodium [Stool Softener] 100 mg PO DAILY #30 capsule 02/06/19 Sennosides [Senna -] 1 tab PO DAILY #30 tablet 02/06/19 Pantoprazole Sodium [Protonix -] 40 mg PO DAILY #14 tablet.ec 02/23/19 Amlodipine Besylate [Norvasc -] 10 mg PO DAILY #30 tablet 04/07/19 Lactulose (Oral Use) [Cephulac -] 20 gm PO TID #1 udc 04/07/19 Rifaximin [Xifaxan -] 550 mg PO BID #60 tablet 04/07/19 Methadone [Dolophine -] 10 mg PO DAILY MDD 60 04/12/19 - Diagnosis (1) Alcohol-induced sleep disorder Current Visit: No Status: Acute (2) Alcohol dependence with withdrawal, uncomplicated Current Visit: No Status: Chronic (3) History of liver failure Current Visit: No Status: Chronic (4) Hx of jaundice Current Visit: No Status: Chronic (5) Hyperammonemia Current Visit: No Status: Chronic (6) Hypertension Current Visit: No Status: Chronic Qualifiers: Hypertension type: essential hypertension Qualified Code(s): I10 - Essential (primary) hypertension (7) Insomnia Current Visit: No Status: Chronic (8) Methadone maintenance therapy patient Current Visit: Yes Status: Chronic (9) Nicotine dependence Current Visit: Yes Status: Chronic Qualifiers: Nicotine product type: cigarettes Substance use status: uncomplicated Qualified Code(s): F17.210 - Nicotine dependence, cigarettes, uncomplicated (10) Opioid dependence on agonist therapy Current Visit: No Status: Chronic (11) Substance-induced sleep disorder Current Visit: No Status: Chronic (12) anxiety and depression Current Visit: No Status: Chronic (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 Current Visit: No Status: Chronic (14) Substance induced mood disorder Current Visit: No Status: Suspected (15) Acute liver failure Current Visit: No Status: Resolved Qualifiers: Hepatic coma status: without hepatic coma Qualified Code(s): K72.00 - Acute and subacute hepatic failure without coma (16) Acute respiratory failure Current Visit: No Status: Resolved Qualifiers: Respiratory failure complication: unspecified whether with hypoxia or hypercapnia Qualified Code(s): J96.00 - Acute respiratory failure, unspecified whether with hypoxia or hypercapnia (17) Alcohol withdrawal delirium Current Visit: No Status: Resolved (18) Alcoholic hepatitis Current Visit: No Status: Resolved Qualifiers: Ascites presence: without ascites Qualified Code(s): K70.10 - Alcoholic hepatitis without ascites (19) Delirium tremens Current Visit: No Status: Resolved (20) Elevated liver enzymes Current Visit: Yes Status: Chronic (21) History of positive PPD Current Visit: No Status: Resolved - AMA Did Patient Leave Against Medical Advice: Yes
[2019-04-13 11:54] VITALS: BP 155/110; PULSE 96; TEMP 96.4
[2019-04-14] MEDS ORDERED: diazePAM 5 MG TABLET PO SCH (06:00)
[2019-04-14] MEDS ORDERED: METHADONE HCL 10 MG TABLET PO SCH (06:00)
[2019-04-15] MEDS ORDERED: diazePAM 5 MG TABLET PO ONE (06:00)
== END 2019-04-13 12:37 | disposition left against medical advice (07) | DRG 770 ==
LOC: YASAS 19:33 → Y6N 20:38
PROVIDERS: ADMIT Allergy & Immunology; ATTEND Allergy & Immunology
PROC: HZ2ZZZZ Detoxification Services for Substance Abuse Treatment (ICD-10-PCS; principal; 2019-04-12)
DX: F10.230 Alcohol dependence with withdrawal, uncomplicated (principal); F11.20 Opioid dependence, uncomplicated; F17.210 Nicotine dependence, cigarettes, uncomplicated; F19.282 Other psychoactive substance dependence with psychoactive substance-induced sleep disorder; F41.8 Other specified anxiety disorders; F32.9 Major depressive disorder, single episode, unspecified; K21.9 Gastro-esophageal reflux disease without esophagitis; E72.20 Disorder of urea cycle metabolism, unspecified; R94.5 Abnormal results of liver function studies; R74.8 Abnormal levels of other serum enzymes; G47.00 Insomnia, unspecified; Z87.19 Personal history of other diseases of the digestive system
CPT/HCPCS: 36415; 80053; 85027; 86593

== ENCOUNTER 2019-04-25 20:14 | Inpatient (IN) | payer OTHER ==
--- NOTE | 2019-04-25 20:50 | PDOC ---
Attending Attestation - Resident Resident Name: Aryan Wheat - ED Attending Attestation I have performed the following: I have examined & evaluated the patient, The case was reviewed & discussed with the resident, I agree w/resident's findings & plan
[2019-04-25] MEDS ORDERED: SODIUM CHLORIDE 0.9% 500 ML INFUS.BAG IV ONE (21:46)
--- NOTE | 2019-04-25 21:54 | PDOC ---
History of Present Illness - General History Source: Patient, EMS Exam Limitations: No Limitations - History of Present Illness Initial Comments: 38 y/o M, pmh of HTN, GERD, hx of esbl, polysubstance abuse (heroin on methadone , alcohol and nicotine), hepatic encephalopathy (intubated in the past for DT) presents today for alcohol intoxication and [facility]ph[facility]ia [facility]. Pt was checking himself in to [facility] when he was found to be intoxicated and sent to the ED. In the ED pt remains intoxicated with a CIWA of 7. PT states his last drink was today morning with 1 L vodka. Denies f/c/n/v/d/chest pain, loc, head trauma, shortness of breath. 04/25/19 21:50 Severity: mild Associated Symptoms: reports: denies symptoms. denies: chest pain, cough, diaphoresis, fever/chills, headaches, nausea/vomiting, shortness of breath <Aryan Wheat - Last Filed: 04/25/19 23:39> <Tammie Phillip - Last Filed: 04/26/19 00:33> - General Chief Complaint: Alcohol intoxication Stated Complaint: INTOX Time Seen by Provider: 04/25/19 20:49 Past History - Travel Traveled outside of the country in the last 30 days: No Close contact w/someone who was outside of country & ill: No - Past Medical History Anemia: No Asthma: No Cancer: No Cardiac Disorders: No CVA: No COPD: No CHF: No Dementia: No Diabetes: No GI Disorders: Yes (Hx of GERD) Disorders: No HTN: Yes Hypercholesterolemia: No Kidney Stones: No Liver Disease: No Seizures: No Thyroid Disease: No - Surgical History Abdominal Surgery: No Appendectomy: No Cardiac Surgery: No Cholecystectomy: No Lung Surgery: No Neurologic Surgery: No Orthopedic Surgery: Yes (right index finger trauma at age 4) - Reproductive History Testicular Surgery: No - Immunization History Immunization Up to Date: No - Psycho Social/Smoking Cessation Hx Smoking History: Unknown if ever smoked Have you smoked in the past 12 months: No Number of Cigarettes Smoked Daily: 3 Cigars Per Day: 0 Information on smoking cessation initiated: No 'Breaking Loose' booklet given: 04/12/19 Hx Alcohol Use: No Drug/Substance Use Hx: No Substance Use Type: Alcohol Hx Substance Use Treatment: Yes <Aryan Wheat - Last Filed: 04/25/19 23:39> <Tammie Phillip - Last Filed: 04/26/19 00:33> - Past Medical History Allergies/Adverse Reactions: Allergies Allergy/AdvReac Type Severity Reaction Status Date / Time No Known Allergies Allergy Verified 04/25/19 21:16 Home Medications: Ambulatory Orders Folic Acid - 1 mg PO DAILY #30 tablet 02/05/19 Thiamine HCl [Vitamin B1 Injection -] 200 mg PO DAILY #30 vial 02/05/19 Docusate Sodium [Stool Softener] 100 mg PO DAILY #30 capsule 02/06/19 Sennosides [Senna -] 1 tab PO DAILY #30 tablet 02/06/19 Pantoprazole Sodium [Protonix -] 40 mg PO DAILY #14 tablet.ec 02/23/19 Amlodipine Besylate [Norvasc -] 10 mg PO DAILY #30 tablet 04/07/19 Lactulose (Oral Use) [Cephulac -] 20 gm PO TID #1 udc 04/07/19 Rifaximin [Xifaxan -] 550 mg PO BID #60 tablet 04/07/19 Methadone [Dolophine -] 10 mg PO DAILY MDD 60 04/12/19 Review of Systems - Review of Systems Able to Perform ROS?: Yes Is the patient limited Ecuadorean proficient: No Constitutional: Yes: Symptoms Reported, Weight Stable. No: Chills, Diaphoresis , Fever HEENTM: Yes: Symptoms Reported, Throat Pain, Difficulty Swallowing. No: Blurred Vision Respiratory: Yes: Symptoms reported. No: Cough, Orthopnea, Shortness of Breath , Wheezing Cardiac (ROS): Yes: Symptoms Reported. No: Chest Pain, Irregular Heart Rate, Chest Tightness ABD/GI: Yes: Symptoms Reported. No: Diarrhea, Nausea, Vomiting : Yes: Symptoms Reported Musculoskeletal: Yes: Symptoms Reported. No: Back Pain Integumentary: Yes: Symptoms Reported <Aryan Wheat - Last Filed: 04/25/19 23:39> *Physical Exam - Vital Signs Last Vital Signs Temp Pulse Resp BP Pulse Ox 97.3 F L 106 H 16 158/102 H 96 04/25/19 20:21 04/25/19 20:21 04/25/19 20:21 04/25/19 20:21 04/25/19 20:21 - Physical Exam General Appearance: Yes: Disheveled, Alcohol on Breath, Intoxicated HEENT: positive: EOMI, MELVI, Normal ENT Inspection, Pharynx Normal Neck: positive: Trachea midline, Normal Thyroid, Supple. negative: Lymphadenopathy (R), Lymphadenopathy (L) Respiratory/Chest: positive: Lungs Clear, Normal Breath Sounds. negative: Crackles, Rales, Wheezing Cardiovascular: positive: Regular Rhythm, Regular Rate, S1, S2. negative: Murmur, Gallop/S3, Gallop/S4 Vascular Pulses: Dorsalis-Pedis (R): 2+, Doralis-Pedis (L): 2+ Gastrointestinal/Abdominal: positive: Normal Bowel Sounds, Protuberent, Distended, Tenderness. negative: Soft, Organomegaly <Aryan Wheat - Last Filed: 04/25/19 23:39> - Vital Signs Last Vital Signs Temp Pulse Resp BP Pulse Ox 97.6 F 90 18 123/60 96 04/25/19 23:00 04/25/19 23:00 04/25/19 23:00 04/25/19 23:00 04/25/19 23:00 <Tammie Phillip - Last Filed: 04/26/19 00:33> ED Treatment Course - LABORATORY CBC & Chemistry Diagram: 04/25/19 22:15 04/25/19 22:15 <Aryan Wheat - Last Filed: 04/25/19 23:39> - LABORATORY CBC & Chemistry Diagram: 04/25/19 22:15 04/25/19 22:15 - ADDITIONAL ORDERS Additional order review: Laboratory Results 04/25/19 22:15 Sodium 142 Potassium 3.2 L Chloride 107 Carbon Dioxide 26 Anion Gap 10 BUN 9.8 Creatinine 0.7 Est GFR (CKD-EPI)AfAm 138.75 Est GFR (CKD-EPI)NonAf 119.71 Random Glucose 88 Calcium 8.9 Total Bilirubin 0.6 AST 167 H ALT 159 H Alkaline Phosphatase 142 H Total Protein 8.7 H Albumin 4.0 Lipase 359 Alcohol, Quantitative 430.0 H 04/25/19 22:15 RBC 5.43 MCV 90.9 MCHC 33.8 RDW 14.6 MPV 7.7 - Medications Given in the ED: ED Medications Discontinued Medications Generic Name Dose Route Start Last Admin Trade Name Freq PRN Reason Stop Dose Admin Sodium Chloride 250 mls @ 250 mls/hr 04/25/19 22:41 04/25/19 22:48 Normal Saline - IV 04/25/19 23:40 250 mls/hr ASDIR STA Administration Sodium Chloride 250 ml 04/25/19 21:46 04/25/19 22:18 Normal Saline - IV 04/25/19 21:47 250 ml ONCE ONE Administration <Tammie Phillip - Last Filed: 04/26/19 00:33> Medical Decision Making - Medical Decision Making 38 y/o M, pmh of HTN, GERD, hx of esbl, polysubstance abuse (heroin on methadone , alcohol and nicotine), hepatic encephalopathy (intubated in the past for DT) presents today for alcohol intoxication and dysphagia from [facility] #Alcohol intoxication CBC,CMP ordered lipase Alcohol levels ordered Rapid strep IVF 04/25/19 21:5 04/25/19 21:58 <Aryan Wheat - Last Filed: 04/25/19 23:39> Discharge <Aryan Wheat - Last Filed: 04/25/19 23:39> - Discharge Information Problems reviewed: Yes - Admission Yes <Tammie Phillip - Last Filed: 04/26/19 00:33> - Discharge Information Clinical Impression/Diagnosis: Alcoholic hepatitis, Abdominal pain, Alcohol intoxication Condition: Guarded
[2019-04-25 22:23] LABS: HEMATOCRIT 49.3 % (35.4-49); HEMOGLOBIN 16.7 GM/dL (11.7-16.9); MCH 30.8 pg (25.7-33.7); MCHC 33.8 g/dl (32.0-35.9); MEAN CELL VOLUME 90.9 fl (80-96); MEAN PLT VOLUME 7.7 fl (7.5-11.1); PLATELET COUNT 118 K/MM3 (134-434); RBC 5.43 M/mm3 (4.00-5.60); RDW 14.6 % (11.9-15.9); WHITE BLOOD COUNT 8.1 K/mm3 (4.0-10.0)
[2019-04-25] MEDS ORDERED: SODIUM CHLORIDE 250 ML IV STA (22:41)
[2019-04-25 23:09] LABS: BILIRUBIN,TOTAL 0.6 mg/dL (0.2-1); BLOOD UREA NITROGEN 9.8 mg/dL (7-18); CALCIUM 8.9 mg/dL (8.5-10.1); CREATININE 0.7 mg/dL (0.55-1.3); POTASSIUM 3.2 mmol/L (3.5-5.1); TOT PROT 8.7 g/dl (6.4-8.2)
[2019-04-25] MEDS ORDERED: POTASSIUM CHLORIDE TABS 20 MEQ TABLET.ER (FP) PO ONE (23:26)
[2019-04-25] MEDS ORDERED: MAGNESIUM SULF 50% (8.12 MEQ/2 ML-1 GM VIAL) IVPB ONE (23:26)
--- NOTE | 2019-04-25 23:47 | PN ---
Teaching Attending Note Name of Resident: Mikayla Enriquez ATTENDING PHYSICIAN STATEMENT I saw and evaluated the patient. I reviewed the resident's note and discussed the case with the resident. I agree with the resident's findings and plan as documented. SUBJECTIVE: Patient is a 38 year old man with a PMH of HTN, GERD, Polysubstance use (alcohol , heroin now on methadone), Tobacco use and Hepatic encephalopathy (previously intubated, DTs) who presents to the ER by EMS for alcohol intoxication, dysphasia and sore throat today. The patient notes he drank 1 liter of alcohol this morning. Patient denies chest pain, shortness of breath, headache, dizziness, fever, chills, cough, nausea, vomiting, diarrhea, constipation, dysuria, frequency, urgency or hematuria. No recent travel or sick contacts. OBJECTIVE: Alert Vital Signs Period Temp Pulse Resp BP Sys/Phipps Pulse Ox Last 24 Hr 97.3 F-97.6 F 90-106 16-18 123-158/60-102 96-96 HEENT: No Jaundice, eye redness or discharge, PERRLA, EOMI. Normocephalic, atraumatic. External ears are normal and hearing is grossly intact. No nasal discharge. Neck: Supple, nontender. No palpable adenopathy or thyromegaly. No JVD Chest: Good effort. Clear to auscultation and percussion. Heart: Regular. No S3, rub or murmur Abdomen: Not distended, soft, nontender and no HSM. No rebound or guarding. Normal bowel sounds. Ext: Peripheral pulses intact. No leg edema. Skin: Warm and dry. No petechiae, rash or ecchymosis. Neuro: Alert. Oriented x3. CN 2-12 grossly intact. Sensation grossly intact in all four extremities and DTR are symmetric. Psych: Appropriate mood and affect. Good insight. Home Medications Medication Instructions Recorded Folic Acid - 1 mg PO DAILY #30 tablet 02/05/19 Thiamine HCl [Vitamin B1 Injection 200 mg PO DAILY #30 vial 02/05/19 -] Docusate Sodium [Stool Softener] 100 mg PO DAILY #30 capsule 02/06/19 Sennosides [Senna -] 1 tab PO DAILY #30 tablet 02/06/19 Pantoprazole Sodium [Protonix -] 40 mg PO DAILY #14 tablet.ec 02/23/19 Amlodipine Besylate [Norvasc -] 10 mg PO DAILY #30 tablet 04/07/19 Lactulose (Oral Use) [Cephulac -] 20 gm PO TID #1 udc 04/07/19 Rifaximin [Xifaxan -] 550 mg PO BID #60 tablet 04/07/19 Methadone [Dolophine -] 10 mg PO DAILY MDD 60 04/12/19 Abnormal Lab Results 04/25/19 04/25/19 22:15 22:15 Hct 49.3 H Plt Count 118 L D Potassium 3.2 L AST 167 H ALT 159 H Alkaline Phosphatase 142 H Total Protein 8.7 H Alcohol, Quantitative 430.0 H ASSESSMENT AND PLAN: 1. Alcohol intoxication/Alcoholic hepatitis - Group a rapid strept test was negative. Will treat with banana bag, get hepatitis serology, upper abdominal sonogram, NH3 level, trend LFTs and treat with lactulose and rifaximin. Low K and low platelets - sequelae of alcoholism. Will check Mg, phosphate and give IV KCL and monitor platelets. EKG, urinalysis and CXR pending. Implement CIWA ativan alcohol withdrawal protocol and do neurochecks. Monitor for heroin withdrawal. Implement seizure, fall and aspiration precautions. Treat with thiamine and folic acid and monitor electrolytes (Ca,Mg,K,P). Counseled patient about abstaining from alcohol/illicit drug use. Will consult document management specialist and refer to alcohol/drug detox detox upon discharge. Will continue comprehensive care for all of patients comorbid conditions. 2. Tobacco Use Counseled on risks associated with tobacco use. We will provide patient all the necessary assistance to facilitate smoking cessation and prescribe Nicotine patch. 3. Hypertension - Restart suitable outpatient antihypertensive drugs when clinically appropriate. 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 Nonpharmacologic measures to control hypertension like weight loss , salt restriction and exercise discussed. Importance of adherence to treatment regimen and attainment of normotension emphasized. 4. DVT prophylaxis - Lovenox 40 mg SQ q 24 hours. 5. Advance directives - Full code
[2019-04-26] MEDS ORDERED: POTASSIUM CHLORIDE TABS 20 MEQ TABLET.ER (FP) PO ONE (00:28)
[2019-04-26] MEDS ORDERED: MAGNESIUM SULFATE IN WATER 2 GM/50 ML IVPB IVPB ONE (00:28)
--- NOTE | 2019-04-26 00:30 | PDOC ---
Documentation entered by Hank Doll SCRIBE, acting as scribe for Tammie Phillip MD. Tammie Phillip MD: This documentation has been prepared by the Lavon lewis Xhesika, SCRIBE, under my direction and personally reviewed by me in its entirety. I confirm that the documentation accurately reflects all work, treatment, procedures, and medical decision making performed by me. Attending Attestation - Resident Resident Name: Aryan Wheat - ED Attending Attestation I have performed the following: I have examined & evaluated the patient, The case was reviewed & discussed with the resident, I agree w/resident's findings & plan - HPI HPI: 04/25/19 21:34 The patient is a 38 year old male with a significant PMH of HTN, GERD, polysubstance use (nicotine, alcohol, heroin now on methadone), prior hepatic encephalopathy (previously intubated, DTs) who presents to the emergency department BIBA for etoh intoxication, dysphasia and sore throat today. The patient notes he drank 1 liter of alcohol this morning. The patient denies chest pain, shortness of breath, headache and dizziness. Denies fever, chills, cough, nausea, vomiting, diarrhea and constipation. Denies dysuria, frequency, urgency and hematuria. Allergies: NKDA - Physicial Exam PE: 04/25/19 21:36 GENERAL: Awake, alert, +alcohol on breath. HEAD: No signs of trauma ENT: Auricles normal inspection, hearing grossly normal, nares patent. + throat erythematous. NECK: Normal ROM, supple, no lymphadenopathy, JVD, or masses LUNGS: Breath sounds equal, clear to auscultation bilaterally. No wheezes, and no crackles HEART: Regular rate and rhythm, normal S1 and S2, no murmurs, rubs or gallops ABDOMEN: + distended. nontender, normoactive bowel sounds. No guarding, no rebound. No masses EXTREMITIES: no edema. No clubbing or cyanosis. No cords, erythema, or tenderness SKIN: Warm, Dry, normal turgor, no rashes or lesions noted. - Medical Decision Making 04/25/19 22:28 Pt has normal CBC chem,alcohol and rapid strep pending. 04/25/19 23:30 Pt's alcohol is 400s and he will likely be admitted for his alcoholic hepatitis. His potassium will be repleted with oral K+ and IV Mag+
[2019-04-26] MEDS ORDERED: FOLIC ACID INJECTION - 1 MG, THIAMINE HCL 100 MG, MULTIVIT INJECTION ADULT 10 ML in SOD... IVPB ONE (00:47)
[2019-04-26] MEDS ORDERED: LORazepam 2 MG/ML SDV VIAL IVPUSH PRN (00:49)
--- NOTE | 2019-04-26 01:10 | HP ---
CHIEF COMPLAINT: EtOH Intox PCP: HISTORY OF PRESENT ILLNESS: Limited history due to patient's mental status 38 y/o M with PMHx of Alcohol use disorder, Seizures (from EtOH withdrawals), Hepatic Encephalopathy (Requiring intubation for DT's in the past), Polysubastance abuse (EtOH, opiates on methadone), HTN, GERD, presented to the ER from [facility] for EtOH intoxication. Patient was attempting to check himself into [facility] when he was sent to [facility] for intoxication. During my interview, patient remained intoxicated and answered very minimally; He was arousable to speech and touch however mentioned multiple times that he is intoxicated and would like to sleep. ER course was notable for: (1) KDur 40, Mag sulfate 2gm, 1/2L NS (2) (3) Recent Travel: Unable to obtain PAST MEDICAL HISTORY: As above PAST SURGICAL HISTORY: Unable to obtain Social History: Smokin-3 cigs' daily Alcohol: 1L Vodka daily + Multiple beers Drugs: Denies Occupation: Unemployed Residence: Home with mother Allergies No Known Allergies Allergy (Verified 04/25/19 21:16) HOME MEDICATIONS: Home Medications Medication Instructions Recorded Folic Acid - 1 mg PO DAILY #30 tablet 02/05/19 Thiamine HCl [Vitamin B1 Injection 200 mg PO DAILY #30 vial 02/05/19 -] Docusate Sodium [Stool Softener] 100 mg PO DAILY #30 capsule 02/06/19 Sennosides [Senna -] 1 tab PO DAILY #30 tablet 02/06/19 Pantoprazole Sodium [Protonix -] 40 mg PO DAILY #14 tablet.ec 02/23/19 Amlodipine Besylate [Norvasc -] 10 mg PO DAILY #30 tablet 04/07/19 Lactulose (Oral Use) [Cephulac -] 20 gm PO TID #1 udc 04/07/19 Rifaximin [Xifaxan -] 550 mg PO BID #60 tablet 04/07/19 Methadone [Dolophine -] 10 mg PO DAILY MDD 60 04/12/19 REVIEW OF SYSTEMS Unable to obtain PHYSICAL EXAMINATION Vital Signs - 24 hr 04/25/19 04/25/19 20:21 23:00 Temperature 97.3 F L 97.6 F Pulse Rate 106 H Pulse Rate [ 90 Left Radial] Respiratory 16 18 Rate Blood Pressure 158/102 H Blood Pressure 123/60 [Right Arm] O2 Sat by Pulse 96 96 Oximetry (%) GENERAL: Sleeping, Arousable to voice and touch HEAD: NCAT EYES: PERRL, EOMI EARS, NOSE, THROAT: Moist mucous membranes. NECK: No JVD LUNGS: Diminished breath sounds at the bases HEART: Regular rate and rhythm, normal S1 and S2 without murmur ABDOMEN: Soft, nontender, distended, + bowel sounds, no guarding EXTREMITIES: No peripheral edema. SKIN: Warm, dry Laboratory Results - last 24 hr 04/25/19 04/25/19 04/25/19 22:15 22:15 22:15 WBC 8.1 RBC 5.43 Hgb 16.7 Hct 49.3 H MCV 90.9 MCH 30.8 MCHC 33.8 RDW 14.6 Plt Count 118 L D MPV 7.7 Manual Slide Review Slide scanned. Platelet Comment Slightly decreased. Sodium 142 Potassium 3.2 L Chloride 107 Carbon Dioxide 26 Anion Gap 10 BUN 9.8 Creatinine 0.7 Est GFR (CKD-EPI)AfAm 138.75 Est GFR (CKD-EPI)NonAf 119.71 Random Glucose 88 Calcium 8.9 Total Bilirubin 0.6 AST 167 H ALT 159 H Alkaline Phosphatase 142 H Total Protein 8.7 H Albumin 4.0 Lipase 359 Alcohol, Quantitative 430.0 H Group A Strep Rapid Negative ASSESSMENT/PLAN: 38 y/o M with PMHx of Alcohol use disorder, Seizures (from EtOH withdrawals), Hepatic Encephalopathy (Requiring intubation for DT's in the past), Polysubastance abuse (EtOH, opiates on methadone), HTN, GERD, presented to the ER from [facility] for EtOH intoxication, and admitted for Alcoholic hepatitis. #Transaminitis -Likely Alcoholic Hepatitis in the setting of EtOH intoxication -Check Abdominal US to r/o billiary pathology, Hepatitis Serology, Ammonia level -Will consider Lactulose and Rifaximin when mental status improves -Trend LFTs #EtOH intoxication -Banana bag @ 125, Thiamine/Folate/MVI -Start Ativan 2mg Q2H for now -Neurochecks, Fall/dysphagia/seizure precautions -Will consider transferring patient to [facility] once mental status improves -EKG #Hypokalemia -Repleted #Thrombocytopenia -In the setting of Chronic EtOH Use -Trend #HTN -Will restart home meds once med recc'ed #FEN -Banana bag -Replete lylakia PRN -NPO #PPx -DVT: SCDs; Will hold chemical AC in the setting of thrombocytopenia and fall risk Dispo: Admit to med-surg Visit type - Emergency Visit Emergency Visit: Yes ED Registration Date: 04/26/19 Care time: The patient presented to the Emergency Department on the above date and was hospitalized for further evaluation of their emergent condition. - New Patient This patient is new to me today: Yes Date on this admission: 04/29/19 - Critical Care Critical Care patient: No ATTENDING PHYSICIAN STATEMENT I saw and evaluated the patient. I reviewed the resident's note and discussed the case with the resident. I agree with the resident's findings and plan as documented. SUBJECTIVE: OBJECTIVE: ASSESSMENT AND PLAN:
[2019-04-26 03:45] LABS: EPI CELLS 1.9 /HPF (0-5/HPF); HYALINE CASTS 14 /lpf (0-8); URINE APPEARANCE CLOUDY; URINE BACTERIA 3.9 /hpf (NEGATIVE); URINE BILIRUBIN NEGATIVE (NEGATIVE); URINE COLOR YELLOW; URINE GLUCOSE (UA) NEGATIVE (NEGATIVE); URINE KETONE NEGATIVE (NEGATIVE); URINE LEUK ESTERASE NEGATIVE (NEGATIVE); URINE NITRITE NEGATIVE (NEGATIVE); URINE PROTEIN 2+ (NEGATIVE); URINE RBC 3 /hpf (0-4); URINE WBC 1 /hpf (0-5)
[2019-04-26 06:12] LABS: BASO % 1.3 % (0-2.0); EOS % 4.8 % (0-4.5); HEMATOCRIT 44.3 % (35.4-49); MCH 30.6 pg (25.7-33.7); MCHC 33.8 g/dl (32.0-35.9); MEAN CELL VOLUME 90.6 fl (80-96); MEAN PLT VOLUME 7.8 fl (7.5-11.1); MONO % 13.8 % (3.8-10.2); NEUT % 48.1 % (42.8-82.8); PLATELET COUNT 96 K/MM3 (134-434); RBC 4.89 M/mm3 (4.00-5.60); RDW 14.6 % (11.9-15.9); WHITE BLOOD COUNT 4.2 K/mm3 (4.0-10.0)
[2019-04-26 06:28] LABS: INR 1.14 (0.83-1.09); PROTHROMBIN TIME (PATIENT) 13.5 SEC (9.7-13.0)
[2019-04-26 06:41] LABS: ALBUMIN 3.5 g/dl (3.4-5.0); BILIRUBIN,TOTAL 0.5 mg/dL (0.2-1); BLOOD UREA NITROGEN 5.8 mg/dL (7-18); CALCIUM 7.8 mg/dL (8.5-10.1); CREATININE 0.6 mg/dL (0.55-1.3); POTASSIUM 3.9 mmol/L (3.5-5.1); TOT PROT 7.6 g/dl (6.4-8.2)
--- NOTE | 2019-04-26 08:30 | HOSP ---
Subjective - Review of Symptoms Subjective: 38 y/o M with PMHx of Alcohol use disorder, Seizures (from EtOH withdrawals), Hepatic Encephalopathy (Requiring intubation for DT's in the past), Polysubastance abuse (EtOH, opiates on methadone), HTN, GERD, presented to the ER from [facility] for EtOH intoxication. General: Yes: Malaise HEENT: Yes: Head Aches Cardiovascular: Yes: Palpitations Gastrointestinal: Yes: Nausea, Vomiting, Abdominal Pain Musculoskeletal: Yes: Extremity Pain, Joint Pain Neurological: Yes: Incoordination, Confusion, Other (tremors) Physical Examination Vital Signs: Vital Signs Temperature 97.9 F 04/26/19 07:00 Pulse Rate 90 04/26/19 07:35 Respiratory Rate 18 04/26/19 07:35 Blood Pressure 143/84 04/26/19 07:35 O2 Sat by Pulse Oximetry (%) 95 04/26/19 07:35 Eyes: Yes: WNL, Conjunctiva Clear, EOM Intact HENT: Yes: WNL, Atraumatic, Normocephalic Neck: Yes: WNL, Supple, Trachea Midline Cardiovascular: Yes: WNL, Regular Rate and Rhythm Respiratory: Yes: WNL, Regular, CTA Bilaterally, Diminished (at bases) Gastrointestinal: Yes: WNL, Normal Bowel Sounds, Soft (tremors, mild agitation) , Abdomen, Obese ...Rectal Exam: Yes: Deferred Renal/: Yes: WNL Musculoskeletal: Yes: WNL Extremities: Yes: WNL Edema: No Peripheral Pulses WNL: Yes Peripheral Pulses: Left Radial: 2+, Right Radial: 2+, Left Doralis Pedis: 2+, Right Dorsalis Pedis: 2+, Left Femoral: 2+, Right Femoral: 2+ Integumentary: Yes: WNL Neurological: Yes: WNL, Alert, Oriented ...Motor Strength: WNL Psychiatric: Yes: Other Labs: CBC, BMP 04/26/19 05:25 04/26/19 05:25 Hospitalist Encounter Assessment: Examined in ED. Awake and alert with mild agitation. CIWA score 29. Able to take PO meds now so will resume. Pt has withdrawn from alcohol in the past and gone into DTs requiring intubation. Ativan detox protocol initiated. Consult for Dr Henley/Ford ribera. Critical Care Total Critical Care Time (in minutes): 30 Critical Care Statement: The care of this patient involved high complexity decision making to prevent further life threatening deterioration of the patient 's condition and/or to evaluate & treat vital organ system(s) failure or risk of failure.
[2019-04-26] MEDS: FOLIC ACID 1 MG TABLET (FP) PO SCH (11:00)
[2019-04-26] MEDS: SENNOSIDES 8.6MG TABLET (FP) PO SCH (11:00)
[2019-04-26] MEDS: DOCUSATE SODIUM 100 MG CAPSULE (FP) PO SCH (11:00)
[2019-04-26] MEDS: MULTIVITAMINS (DAILY MVI) TABLET (FP) PO SCH (11:00)
[2019-04-26] MEDS: amLODIPine BESYLATE 10 MG TABLET (FP) PO SCH (11:00)
[2019-04-26] MEDS: THIAMINE HCL 100 MG TABLET (FP) PO SCH (11:00)
[2019-04-26] MEDS: PANTOPRAZOLE 40 MG TABLET (FP) PO SCH (11:00)
[2019-04-26] MEDS: RIFAXIMIN 550 MG TABLET (UD) PO SCH ×2 (11:00→23:05)
[2019-04-26] MEDS ORDERED: LORazepam 1 MG TABLET PO PRN (11:11)
[2019-04-26] MEDS ORDERED: METHADONE HCL 5 MG TABLET ONE (12:09)
[2019-04-26] MEDS: METHADONE HCL 10 MG TABLET PO SCH (12:14)
[2019-04-26] MEDS ORDERED: LORazepam 2 MG/ML SDV VIAL ONE (12:17)
[2019-04-26] MEDS: LORazepam 2 MG TABLET PO SCH ×2 (12:24→18:20)
[2019-04-26] MEDS: LACTULOSE 20 GM/30 ML UDC (FOR ORAL USE ONLY) PO SCH ×2 (13:25→23:05)
[2019-04-26] MEDS ORDERED: LORazepam 0.5 MG TABLET ONE ×2 (16:54→18:19)
--- NOTE | 2019-04-26 18:32 | EKG ---
Test Reason : Blood Pressure : / mmHG Vent. Rate : 087 BPM Atrial Rate : 087 BPM P-R Int : 146 ms QRS Dur : 088 ms QT Int : 394 ms P-R-T Axes : 056 -13 033 degrees QTc Int : 474 ms NORMAL SINUS RHYTHM NORMAL ECG WHEN COMPARED WITH ECG OF 07-APR-2019 09:12, NO SIGNIFICANT CHANGE WAS FOUND Confirmed by RASHAD JEWELL MD ([id number]) on 04/26/2019 6:31:41 PM Referred By: Confirmed By:RASHAD JEWELL MD
[2019-04-26] MEDS: LORazepam 1 MG TABLET PO SCH (23:05)
[2019-04-27 00:42] VITALS: BMI 31.3
[2019-04-27] MEDS: METHADONE HCL 10 MG TABLET PO SCH (05:31)
[2019-04-27] MEDS: LACTULOSE 20 GM/30 ML UDC (FOR ORAL USE ONLY) PO SCH (05:31)
[2019-04-27] MEDS: LORazepam 1 MG TABLET PO SCH ×2 (05:31→10:13)
[2019-04-27] MEDS: amLODIPine BESYLATE 10 MG TABLET (FP) PO SCH ×2 (05:47→10:12)
[2019-04-27 06:44] LABS: BASO % 1.1 % (0-2.0); EOS % 2.9 % (0-4.5); HEMATOCRIT 45.4 % (35.4-49); HEMOGLOBIN 15.5 GM/dL (11.7-16.9); LYMPH % 17.6 % (8-40); MCH 30.8 pg (25.7-33.7); MCHC 34.2 g/dl (32.0-35.9); MEAN CELL VOLUME 90.2 fl (80-96); MEAN PLT VOLUME 8.6 fl (7.5-11.1); MONO % 14.9 % (3.8-10.2); NEUT % 63.5 % (42.8-82.8); PLATELET COUNT 81 K/MM3 (134-434); RBC 5.03 M/mm3 (4.00-5.60); RDW 14.8 % (11.9-15.9); WHITE BLOOD COUNT 5.7 K/mm3 (4.0-10.0)
[2019-04-27 06:50] LABS: INR 1.18 (0.83-1.09); PROTHROMBIN TIME (PATIENT) 13.9 SEC (9.7-13.0)
[2019-04-27 07:20] LABS: ALBUMIN 3.5 g/dl (3.4-5.0); BILIRUBIN,TOTAL 1.2 mg/dL (0.2-1); CALCIUM 9.2 mg/dL (8.5-10.1); CREATININE 0.6 mg/dL (0.55-1.3); MAGNESIUM 1.8 mg/dL (1.8-2.4); PHOSPHOROUS 3.9 mg/dL (2.5-4.9); POTASSIUM 3.4 mmol/L (3.5-5.1)
[2019-04-27] MEDS ORDERED: POTASSIUM CHLORIDE TABS 20 MEQ TABLET.ER (FP) PO ONE (08:45)
--- NOTE | 2019-04-27 09:54 | PN ---
Physical Exam: SUBJECTIVE: Patient seen and examined. denies any nausea. states he drinks b/ c he is depressed. OBJECTIVE: on ativan taper hypertensive on norvac see ciwa score d/c back to [facility] Patient is a 38 year old male with a significant past medical history of alcohol use disorder, seizures (from etoh withdrawals), hepatic encephalopathy ( requiring intubation for DT's in the past), polysubastance abuse (etoh, opiates on methadone), HTN, GERD, presented to the ER from [facility] on 04/26/19 for etoh intoxication. Patient was attempting to check himself into [facility] when he was sent to [facility] for intoxication, started on ativan taper. Vital Signs Period Temp Pulse Resp BP Sys/Phipps Pulse Ox Last 24 Hr 98.1 F-98.6 F 80-104 16-20 150-163/75-105 94-98 GENERAL: The patient is awake, alert, and fully oriented, in no acute distress. HEAD: Normal with no signs of trauma. EYES: PERRL, extraocular movements intact, sclera anicteric, conjunctiva clear. No ptosis. ENT: Ears normal, nares patent, oropharynx clear without exudates, moist mucous membranes. NECK: Trachea midline, full range of motion, supple. LUNGS: Breath sounds equal, clear to auscultation bilaterally HEART: Regular rate and rhythm ABDOMEN: Soft, nontender, nondistended, normoactive bowel sounds EXTREMITIES: no edema. NEUROLOGICAL: Normal speech, gait steady PSYCH: mild anxiety SKIN: Warm, dry, normal turgor, no rashes or lesions noted Laboratory Results - last 24 hr 04/27/19 04/27/19 04/27/19 05:30 05:30 05:30 WBC 5.7 RBC 5.03 Hgb 15.5 Hct 45.4 MCV 90.2 MCH 30.8 MCHC 34.2 RDW 14.8 Plt Count 81 L MPV 8.6 D Absolute Neuts (auto) 3.6 Neutrophils % 63.5 D Lymphocytes % 17.6 D Monocytes % 14.9 H Eosinophils % 2.9 Basophils % 1.1 Nucleated RBC % 0 PT with INR 13.90 H INR 1.18 H Sodium 137 Potassium 3.4 L Chloride 100 Carbon Dioxide 28 Anion Gap 10 BUN 7.0 Creatinine 0.6 Est GFR (CKD-EPI)AfAm 147.82 Est GFR (CKD-EPI)NonAf 127.55 Random Glucose 78 Calcium 9.2 Phosphorus 3.9 Magnesium 1.8 Total Bilirubin 1.2 H AST 117 H ALT 140 H Alkaline Phosphatase 136 H Total Protein 8.0 Albumin 3.5 Active Medications Generic Name Dose Route Start Last Admin Trade Name Freq PRN Reason Stop Dose Admin Amlodipine Besylate 10 mg 04/26/19 10:00 04/27/19 05:47 Norvasc - PO 10 mg DAILY MIESHA Administration Docusate Sodium 100 mg 04/26/19 10:00 04/26/19 11:00 Colace - PO 100 mg DAILY MIESHA Administration Folic Acid 1 mg 04/26/19 10:00 04/26/19 11:00 Folic Acid - PO 1 mg DAILY MIESHA Administration Lactulose 20 gm 04/26/19 14:00 04/27/19 05:31 Cephulac (Oral Use) PO 20 gm TID MIESHA Administration Lorazepam 0.5 mg 04/30/19 05:00 Ativan - PO 04/30/19 05:01 ONCE ONE Lorazepam 0.5 mg 04/29/19 00:00 Ativan - PO 04/30/19 00:00 Q4H PRN Symptoms of Withdrawal Lorazepam 0.5 mg 04/29/19 05:00 Ativan - PO 04/29/19 23:01 Q6H MIESHA Lorazepam 1 mg 04/28/19 05:00 Ativan - PO 04/28/19 23:01 0500,1100,1700,2300 MIESHA Lorazepam 1 mg 04/26/19 11:11 04/26/19 16:57 Ativan - PO 04/28/19 23:59 1 mg Q4H PRN Administration Symptoms of Withdrawal Lorazepam 2 mg 04/26/19 22:05 04/27/19 05:31 Ativan - PO 04/27/19 23:01 2 mg 0500,1100,1700,2300 MIESHA Administration Methadone HCl 10 mg 04/26/19 11:15 04/27/19 05:31 Dolophine - PO 10 mg DAILY@0600 MIESHA Administration Multivitamins/Minerals/Vitamin C 1 tab 04/26/19 10:00 04/26/19 11:00 Tab-A-Vit - PO 1 tab DAILY MIESHA Administration Pantoprazole Sodium 40 mg 04/26/19 10:00 04/26/19 11:00 Protonix - PO 40 mg DAILY MIESHA Administration Rifaximin 550 mg 04/26/19 10:00 04/26/19 23:05 Xifaxan - PO 550 mg BID MIESHA Administration Senna 1 tab 04/26/19 10:00 04/26/19 11:00 Senna - PO 1 tab DAILY MIESHA Administration Thiamine HCl 100 mg 04/26/19 10:00 04/26/19 11:00 Vitamin B1 - PO 100 mg DAILY MIESHA Administration ASSESSMENT/PLAN: Problem List - Problems (1) Alcohol intoxication Assessment/Plan: on ativan taper Code(s): F10.929 - ALCOHOL USE, UNSPECIFIED WITH INTOXICATION, UNSPECIFIED (2) Alcoholic hepatitis Assessment/Plan: monitor liver enzymes trending down Code(s): K70.10 - ALCOHOLIC HEPATITIS WITHOUT ASCITES (3) Alcohol dependence with withdrawal, uncomplicated Assessment/Plan: see ciwa score for d/c back to [facility] Code(s): F10.230 - ALCOHOL DEPENDENCE WITH WITHDRAWAL, UNCOMPLICATED (4) Methadone maintenance therapy patient Assessment/Plan: on 10mg daily Code(s): F11.20 - OPIOID DEPENDENCE, UNCOMPLICATED (5) Thrombocytopenia Assessment/Plan: monitor in the abstinence of alcohol Code(s): D69.6 - THROMBOCYTOPENIA, UNSPECIFIED Visit type - Emergency Visit Emergency Visit: Yes ED Registration Date: 04/26/19 Care time: The patient presented to the Emergency Department on the above date and was hospitalized for further evaluation of their emergent condition. - New Patient This patient is new to me today: Yes Date on this admission: 04/27/19 - Critical Care Critical Care patient: No - Discharge Referral Referred to [facility] No CIWA Score Nausea/Vomitin-No Nausea/No Vomiting Muscle Tremors: 4-Moderate,w/Arms Extend Anxiety: 1-Mildly Anxious Agitation: 0-Normal Activity Paroxysmal Sweats: 4-Forehead w/Sweat Beads Orientation: 0-Oriented Tacttile Disturbances: 0-None Auditory Disturbances: 0-None Visual Disturbances: 0-None Headache: 1-Very Mild CIWA-Ar Total Score: 10 - Admission Criteria OASAS Guidelines: Admission for Medically Managed Detox: Requires at least one of the followin. CIWA greater than 12 2. Seizures within the past 24 hours 3. Delirium tremens within the past 24 hours 4. Hallucinations within the past 24 hours 5. Acute intervention needed for co occurring medical disorder 6. Acute intervention needed for co occurring psychiatric disorder 7. Severe withdrawal that cannot be handled at a lower level of care (continued vomiting, continued diarrhea, abnormal vital signs) requiring intravenous medication and/or fluids 8.
[2019-04-27] MEDS ORDERED: PT OWN MED DRAWER 7, Y5N ONE (10:04)
[2019-04-27] MEDS: PANTOPRAZOLE 40 MG TABLET (FP) PO SCH (10:12)
[2019-04-27] MEDS: RIFAXIMIN 550 MG TABLET (UD) PO SCH (10:13)
[2019-04-27] MEDS: FOLIC ACID 1 MG TABLET (FP) PO SCH (10:13)
[2019-04-27] MEDS: DOCUSATE SODIUM 100 MG CAPSULE (FP) PO SCH (10:13)
[2019-04-27] MEDS: THIAMINE HCL 100 MG TABLET (FP) PO SCH (10:14)
[2019-04-27] MEDS: SENNOSIDES 8.6MG TABLET (FP) PO SCH (10:14)
[2019-04-27] MEDS: MULTIVITAMINS (DAILY MVI) TABLET (FP) PO SCH (10:14)
[2019-04-27 11:10] VITALS: BP 140/99; PULSE 78; TEMP 98.3
--- NOTE | 2019-04-27 11:26 | DS ---
Physical Exam: SUBJECTIVE: Patient seen and examined, ambulating in room. tells me he drinks because of depression and family issues. OBJECTIVE: accepted by Dr. 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 Patient was attempting to check himself into [facility] when he was sent to [facility] for intoxication, started on ativan taper. Vital Signs Period Temp Pulse Resp BP Sys/Phipps Pulse Ox Last 24 Hr 98.2 F-98.6 F 78-104 16-18 140-163/87-105 94-96 PHYSICAL EXAM GENERAL: The patient is awake, alert, and fully oriented, in no acute distress. HEAD: Normal with no signs of trauma. EYES: PERRL, extraocular movements intact, sclera anicteric, conjunctiva clear. No ptosis. ENT: Ears normal, nares patent, oropharynx clear without exudates, moist mucous membranes. NECK: Trachea midline, full range of motion, supple. LUNGS: Breath sounds equal, clear to auscultation bilaterally HEART: Regular rate and rhythm ABDOMEN: Soft, nontender, nondistended, normoactive bowel sounds EXTREMITIES: no edema. NEUROLOGICAL: Normal speech, gait steady PSYCH: mild anxiety SKIN: Warm, dry, normal turgor, no rashes or lesions noted LABS Laboratory Results - last 24 hr 04/27/19 04/27/19 04/27/19 05:30 05:30 05:30 WBC 5.7 RBC 5.03 Hgb 15.5 Hct 45.4 MCV 90.2 MCH 30.8 MCHC 34.2 RDW 14.8 Plt Count 81 L MPV 8.6 D Absolute Neuts (auto) 3.6 Neutrophils % 63.5 D Lymphocytes % 17.6 D Monocytes % 14.9 H Eosinophils % 2.9 Basophils % 1.1 Nucleated RBC % 0 PT with INR 13.90 H INR 1.18 H Sodium 137 Potassium 3.4 L Chloride 100 Carbon Dioxide 28 Anion Gap 10 BUN 7.0 Creatinine 0.6 Est GFR (CKD-EPI)AfAm 147.82 Est GFR (CKD-EPI)NonAf 127.55 Random Glucose 78 Calcium 9.2 Phosphorus 3.9 Magnesium 1.8 Total Bilirubin 1.2 H AST 117 H ALT 140 H Alkaline Phosphatase 136 H Total Protein 8.0 Albumin 3.5 HOSPITAL COURSE: Date of Admission:04/26/19 Date of Discharge: 04/27/19 Minutes to complete discharge: 45 Discharge Summary Problems reviewed: Yes Reason For Visit: ALCOHOLIC INTOXICATION/ELEVATED LIVER ENZYME/ Current Active Problems Abdominal pain (Acute) Alcohol intoxication (Acute) Alcoholic hepatitis (Acute) Condition: Improved - Instructions Referrals: Robert Henley DO [Staff Physician] - Disposition: HALFWAY FACILITY - Home Medications Comprehensive Discharge Medication List: Ambulatory Orders Folic Acid - 1 mg PO DAILY #30 tablet 02/05/19 Thiamine HCl [Vitamin B1 Injection -] 200 mg PO DAILY #30 vial 02/05/19 Docusate Sodium [Stool Softener] 100 mg PO DAILY #30 capsule 02/06/19 Sennosides [Senna -] 1 tab PO DAILY #30 tablet 02/06/19 Pantoprazole Sodium [Protonix -] 40 mg PO DAILY #14 tablet.ec 02/23/19 Amlodipine Besylate [Norvasc -] 10 mg PO DAILY #30 tablet 04/07/19 Lactulose (Oral Use) [Cephulac -] 20 gm PO TID #1 udc 04/07/19 Rifaximin [Xifaxan -] 550 mg PO BID #60 tablet 04/07/19 Methadone [Dolophine -] 10 mg PO DAILY MDD 60 04/12/19 Multivitamins [Multivit ([facility] Formulary)] 1 tab PO DAILY tab 04/27/19 Thiamine HCl [Vitamin B1 -] 100 mg PO DAILY tablet 04/27/19 Problem List - Problems (1) Thrombocytopenia Assessment/Plan: monitor in the abstinence of alcohol Code(s): D69.6 - THROMBOCYTOPENIA, UNSPECIFIED (2) Alcohol dependence with withdrawal, uncomplicated Assessment/Plan: see [facility] for d/c back to [facility] on ativan taper Code(s): F10.230 - ALCOHOL DEPENDENCE WITH WITHDRAWAL, UNCOMPLICATED (3) Elevated liver enzymes Code(s): R74.8 - ABNORMAL LEVELS OF OTHER SERUM ENZYMES (4) Hypertension Assessment/Plan: on norvac 10, may need additional agent if bp remains elevated after ativan taper complete Code(s): I10 - ESSENTIAL (PRIMARY) HYPERTENSION Qualifiers: Hypertension type: essential hypertension Qualified Code(s): I10 - Essential (primary) hypertension (5) Methadone maintenance therapy patient Assessment/Plan: on 10mg daily Code(s): F11.20 - OPIOID DEPENDENCE, UNCOMPLICATED This patient is new to me today: Yes Date on this admission: 04/27/19 Emergency Visit: Yes ED Registration Date: 04/26/19 Care time: The patient presented to the Emergency Department on the above date and was hospitalized for further evaluation of their emergent condition. Critical Care patient: No - Discharge Referral Referred to [facility] Med P.C.: No
[2019-04-28] MEDS ORDERED: LORazepam 1 MG TABLET PO SCH (05:00)
[2019-04-29] MEDS ORDERED: LORazepam 0.5 MG TABLET PO PRN
[2019-04-29] MEDS ORDERED: LORazepam 0.5 MG TABLET PO SCH (05:00)
[2019-04-30] MEDS ORDERED: LORazepam 0.5 MG TABLET PO ONE (05:00)
== END 2019-04-27 13:30 | disposition other institution (70) | DRG 773 ==
LOC: JER 20:14 → JERBED 04-26 00:33 → J4W 04-26 21:03
PROVIDERS: ADMIT Internal Medicine; ATTEND Nurse Practitioner Family
DX: F10.230 Alcohol dependence with withdrawal, uncomplicated (principal); K70.10 Alcoholic hepatitis without ascites; F10.220 Alcohol dependence with intoxication, uncomplicated; F11.20 Opioid dependence, uncomplicated; R13.10 Dysphagia, unspecified; D69.6 Thrombocytopenia, unspecified; I10 Essential (primary) hypertension; K21.9 Gastro-esophageal reflux disease without esophagitis; F17.210 Nicotine dependence, cigarettes, uncomplicated; R74.0 Nonspecific elevation of levels of transaminase and lactic acid dehydrogenase [LDH]; E87.6 Hypokalemia; R74.8 Abnormal levels of other serum enzymes
CPT/HCPCS: 36415; 71046-TC-FY; 76705-TC; 80053; 80074; 80307; 81003; 82140; 83690; 83735; 84100; 85025; 85027; 85610; 86705; 87070; 87389; 87880; 93005; 93010; 97116-GP; 97161-GP; 99285-25; J7030

== ENCOUNTER 2019-04-27 14:23 | Inpatient (IN) | payer OTHER ==
[2019-04-27 15:54] VITALS: BMI 29.6
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
[2019-04-27] MEDS ORDERED: METHOCARBAMOL 500 MG TABLET PO PRN (17:21)
[2019-04-27] MEDS ORDERED: IBUPROFEN 400 MG TABLET (FP) PO PRN (17:21)
[2019-04-27] MEDS ORDERED: NICOTINE POLACRILEX 2 MG GUM BUC PRN (17:21)
[2019-04-27] MEDS ORDERED: BISMUTH SUBSALICYLATE 524 MG/30 ML UD PO PRN (17:21)
[2019-04-27] MEDS ORDERED: MAG HYDROX/AL HYDROX/SIMETH 30 ML UNIT-DOSE CUP PO PRN (17:21)
[2019-04-27] MEDS ORDERED: MENTHOL/PHENOL 1 EACH UD MM PRN (17:21)
[2019-04-27] MEDS ORDERED: LORazepam 1 MG TABLET PO PRN (17:21)
[2019-04-27] MEDS ORDERED: MAGNESIUM HYDROX 2400MG/30ML ORAL SUSPENSION 30 ML CUP PO PRN (17:21)
[2019-04-27] MEDS ORDERED: MAGNESIUM CITRATE 300 ML BOTTLE PO PRN (17:21)
[2019-04-27] MEDS ORDERED: LORazepam 2 MG TABLET PO ONE (18:30)
[2019-04-27] MEDS: THIAMINE HCL 100 MG TABLET (FP) PO SCH (22:10)
[2019-04-27] MEDS: MELATONIN 5 MG TABLETS PO PRN (22:10)
[2019-04-27] MEDS: LORazepam 2 MG TABLET PO SCH (22:10)
[2019-04-27] MEDS: RIFAXIMIN 550 MG TABLET (UD) PO SCH (22:10)
[2019-04-28] MEDS: LORazepam 2 MG TABLET PO SCH ×4 (05:43→22:26)
--- NOTE | 2019-04-28 09:26 | PN ---
[facility] CIWA - CIWA Score Nausea/Vomitin-Mild Nausea/No Vomiting Muscle Tremors: 2 Anxiety: 3 Agitation: 4-Moderately Restless Paroxysmal Sweats: 2 Orientation: 0-Oriented Tacttile Disturbances: 0-None Auditory Disturbances: 0-None Visual Disturbances: 0-None Headache: 1-Very Mild CIWA-Ar Total Score: 13 [facility] Progress Note (SOAP) Subjective: 38 years old male admitted on 04/27/19 for alcohol withdrawal sx management treating with ativan detox regimen irritable anxious about aftercare that alcohol overwhelm his decision to follow up with chemical dependent rehab emotional assurance meet with the counselor together with the patient that a smooth transition to next level of care will be in process along with the input of patient Objective: 04/28/19 09:25 Vital Signs Temperature 96.8 F L 04/28/19 09:09 Pulse Rate 85 04/28/19 09:09 Respiratory Rate 17 04/28/19 09:09 Blood Pressure 123/78 04/28/19 09:09 O2 Sat by Pulse Oximetry (%) 04/28/19 09:25 lab pending Assessment: 04/28/19 09:26 alcohol withdrawal Plan: ativan regimen
[2019-04-28] MEDS: amLODIPine BESYLATE 10 MG TABLET (FP) PO SCH (10:34)
[2019-04-28] MEDS: PANTOPRAZOLE 40 MG TABLET (FP) PO SCH (10:34)
[2019-04-28] MEDS: PRENATAL VITAMINS W/ FOLIC ACID TABLET (FP) PO SCH (10:34)
[2019-04-28] MEDS: DOCUSATE SODIUM 100 MG CAPSULE (FP) PO SCH (10:34)
[2019-04-28] MEDS: POTASSIUM CHLORIDE TABS 20 MEQ TABLET.ER (FP) PO SCH ×2 (10:34→22:26)
[2019-04-28] MEDS: RIFAXIMIN 550 MG TABLET (UD) PO SCH ×2 (10:35→22:26)
[2019-04-28] MEDS: NICOTINE 7 MG/24 HOURS TOPICAL PATCH TD SCH (10:48)
[2019-04-28] MEDS: METHADONE HCL 10 MG TABLET PO SCH (12:23)
[2019-04-28] MEDS: THIAMINE HCL 100 MG TABLET (FP) PO SCH (22:26)
[2019-04-28] MEDS: MELATONIN 5 MG TABLETS PO PRN (22:26)
[2019-04-29] MEDS: LORazepam 1 MG TABLET PO SCH ×4 (05:36→22:50)
[2019-04-29] MEDS: METHADONE HCL 10 MG TABLET PO SCH (05:36)
[2019-04-29] MEDS: PRENATAL VITAMINS W/ FOLIC ACID TABLET (FP) PO SCH (10:31)
[2019-04-29] MEDS: PANTOPRAZOLE 40 MG TABLET (FP) PO SCH (10:32)
[2019-04-29] MEDS: NICOTINE 7 MG/24 HOURS TOPICAL PATCH TD SCH (10:32)
[2019-04-29] MEDS: DOCUSATE SODIUM 100 MG CAPSULE (FP) PO SCH (10:32)
[2019-04-29] MEDS: RIFAXIMIN 550 MG TABLET (UD) PO SCH ×2 (10:32→22:50)
[2019-04-29] MEDS: amLODIPine BESYLATE 10 MG TABLET (FP) PO SCH (10:32)
[2019-04-29 11:07] LABS: ALBUMIN 3.5 g/dl (3.4-5.0); BILIRUBIN,TOTAL 0.8 mg/dL (0.2-1); BLOOD UREA NITROGEN 6.8 mg/dL (7-18); CALCIUM 8.9 mg/dL (8.5-10.1); CREATININE 0.6 mg/dL (0.55-1.3); POTASSIUM 3.6 mmol/L (3.5-5.1); TOT PROT 7.6 g/dl (6.4-8.2)
--- NOTE | 2019-04-29 11:09 | PN ---
[facility] CIWA - CIWA Score Nausea/Vomitin-Mild Nausea/No Vomiting Muscle Tremors: 3 Anxiety: 2 Agitation: 1-Slight > Activity Paroxysmal Sweats: 2 Orientation: 1-Uncertain about Date Tacttile Disturbances: 0-None Auditory Disturbances: 0-None Visual Disturbances: 0-None Headache: 0-None Present CIWA-Ar Total Score: 10 S Progress Note (SOAP) Subjective: 38 years old male admitted on 04/27/19 for alcohol withdrawal sx management treating with librium detox regimen sleep better at night less tremor encourage the patient to attend groups and meetings Objective: 04/29/19 11:09 Vital Signs Temperature 97.3 F L 04/29/19 09:15 Pulse Rate 86 04/29/19 09:15 Respiratory Rate 18 04/29/19 09:15 Blood Pressure 123/80 04/29/19 09:15 O2 Sat by Pulse Oximetry (%) Laboratory Last Values Sodium 136 mmol/L (136-145) 04/29/19 07:50 Potassium 3.6 mmol/L (3.5-5.1) 04/29/19 07:50 Chloride 103 mmol/L (98-107) 04/29/19 07:50 Carbon Dioxide 26 mmol/L (21-32) 04/29/19 07:50 Anion Gap 7 MMOL/L (8-16) L 04/29/19 07:50 BUN 6.8 mg/dL (7-18) L 04/29/19 07:50 Creatinine 0.6 mg/dL (0.55-1.3) 04/29/19 07:50 Est GFR (CKD-EPI)AfAm 147.82 04/29/19 07:50 Est GFR (CKD-EPI)NonAf 127.55 04/29/19 07:50 Random Glucose 95 mg/dL (74-106) 04/29/19 07:50 Calcium 8.9 mg/dL (8.5-10.1) 04/29/19 07:50 Total Bilirubin 0.8 mg/dL (0.2-1) 04/29/19 07:50 AST 135 U/L (15-37) H 04/29/19 07:50 ALT 170 U/L (13-61) H 04/29/19 07:50 Alkaline Phosphatase 122 U/L (45-117) H 04/29/19 07:50 Total Protein 7.6 g/dl (6.4-8.2) 04/29/19 07:50 Albumin 3.5 g/dl (3.4-5.0) 04/29/19 07:50 lab noted ast elevation possible alcohol induced repeat ast 04/30/19 04/29/19 11:11 ammonia pending Assessment: 04/29/19 11:12 alcohol withdrawal Plan: ativan regimen
[2019-04-29] MEDS: MELATONIN 5 MG TABLETS PO PRN (22:50)
[2019-04-29] MEDS: THIAMINE HCL 100 MG TABLET (FP) PO SCH (22:50)
[2019-04-30] MEDS ORDERED: LORazepam 0.5 MG TABLET PO PRN
[2019-04-30] MEDS: METHADONE HCL 10 MG TABLET PO SCH (05:29)
[2019-04-30] MEDS: LORazepam 0.5 MG TABLET PO SCH ×4 (05:29→22:22)
--- NOTE | 2019-04-30 09:52 | PN ---
[facility] CIWA - CIWA Score Nausea/Vomitin-No Nausea/No Vomiting Muscle Tremors: 1-None Visible, but [place] Anxiety: 2 Agitation: 1-Slight > Activity Paroxysmal Sweats: 1-Minimal Palms Moist Orientation: 0-Oriented Tacttile Disturbances: 0-None Auditory Disturbances: 0-None Visual Disturbances: 0-None Headache: 0-None Present CIWA-Ar Total Score: 5 [facility] Progress Note (SOAP) Subjective: 38 years old male admitted on 04/27/19 for alcohol withdrawal sx management treating with ativan detox regimen feeling better today less tremor mild anxiety Objective: 04/30/19 09:50 Vital Signs Temperature 96.5 F L 04/30/19 09:23 Pulse Rate 86 04/30/19 09:23 Respiratory Rate 18 04/30/19 09:23 Blood Pressure 157/106 H 04/30/19 09:23 O2 Sat by Pulse Oximetry (%) Laboratory Last Values Sodium 136 mmol/L (136-145) 04/29/19 07:50 Potassium 3.6 mmol/L (3.5-5.1) 04/29/19 07:50 Chloride 103 mmol/L (98-107) 04/29/19 07:50 Carbon Dioxide 26 mmol/L (21-32) 04/29/19 07:50 Anion Gap 7 MMOL/L (8-16) L 04/29/19 07:50 BUN 6.8 mg/dL (7-18) L 04/29/19 07:50 Creatinine 0.6 mg/dL (0.55-1.3) 04/29/19 07:50 Est GFR (CKD-EPI)AfAm 147.82 04/29/19 07:50 Est GFR (CKD-EPI)NonAf 127.55 04/29/19 07:50 Random Glucose 95 mg/dL (74-106) 04/29/19 07:50 Calcium 8.9 mg/dL (8.5-10.1) 04/29/19 07:50 Total Bilirubin 0.8 mg/dL (0.2-1) 04/29/19 07:50 AST 135 U/L (15-37) H 04/29/19 07:50 ALT 170 U/L (13-61) H 04/29/19 07:50 Alkaline Phosphatase 122 U/L (45-117) H 04/29/19 07:50 Ammonia 88.50 umol/L (11-32) H 04/29/19 07:50 Total Protein 7.6 g/dl (6.4-8.2) 04/29/19 07:50 Albumin 3.5 g/dl (3.4-5.0) 04/29/19 07:50 lab noted ammonia elevation begin lactulose 20gm tid first dose now ast elevation repeat pending 04/30/19 09:52 ambulating from bed to bathroom steady gait speech clearly coherently Assessment: 04/30/19 09:51 alcohol withdrawal Plan: ativan regimen
[2019-04-30] MEDS ORDERED: LACTULOSE 20 GM/30 ML UDC (FOR ORAL USE ONLY) PO ONE (10:00)
[2019-04-30] MEDS: amLODIPine BESYLATE 10 MG TABLET (FP) PO SCH (10:46)
[2019-04-30] MEDS: DOCUSATE SODIUM 100 MG CAPSULE (FP) PO SCH (10:46)
[2019-04-30] MEDS: PRENATAL VITAMINS W/ FOLIC ACID TABLET (FP) PO SCH (10:46)
[2019-04-30] MEDS: PANTOPRAZOLE 40 MG TABLET (FP) PO SCH (10:46)
[2019-04-30] MEDS: NICOTINE 7 MG/24 HOURS TOPICAL PATCH TD SCH (10:46)
[2019-04-30] MEDS: RIFAXIMIN 550 MG TABLET (UD) PO SCH ×2 (10:47→22:22)
[2019-04-30] MEDS: LACTULOSE 20 GM/30 ML UDC (FOR ORAL USE ONLY) PO SCH ×2 (14:28→22:22)
[2019-04-30] MEDS: THIAMINE HCL 100 MG TABLET (FP) PO SCH (22:22)
[2019-04-30] MEDS: MELATONIN 5 MG TABLETS PO PRN (22:23)
[2019-05-01] MEDS ORDERED: LORazepam 0.5 MG TABLET PO ONE (05:00)
[2019-05-01] MEDS: LACTULOSE 20 GM/30 ML UDC (FOR ORAL USE ONLY) PO SCH ×2 (07:34→13:34)
[2019-05-01] MEDS: METHADONE HCL 10 MG TABLET PO SCH (07:34)
[2019-05-01] MEDS: DOCUSATE SODIUM 100 MG CAPSULE (FP) PO SCH (09:18)
[2019-05-01] MEDS: PANTOPRAZOLE 40 MG TABLET (FP) PO SCH (09:18)
[2019-05-01] MEDS: RIFAXIMIN 550 MG TABLET (UD) PO SCH (09:18)
[2019-05-01] MEDS: amLODIPine BESYLATE 10 MG TABLET (FP) PO SCH (09:18)
[2019-05-01] MEDS: PRENATAL VITAMINS W/ FOLIC ACID TABLET (FP) PO SCH (09:18)
[2019-05-01] MEDS: NICOTINE 7 MG/24 HOURS TOPICAL PATCH TD SCH (09:19)
[2019-05-01 13:18] VITALS: BP 147/99; PULSE 99; TEMP 97
--- NOTE | 2019-05-01 14:19 | DS ---
[facility] Detox Discharge Summary Admission Date: 04/27/19 Discharge Date: 05/01/19 - History Present History: Alcohol Dependence, Opioid Dependence Additional Comments: Pt is medically cleared and discharged to [facility] for continued management. Pt completed the detox protocol. Pt is encouraged to follow through with the rehab protocol. Pt verbalized understanding. Pt is alert and oriented x3 and in no acute respiratory distress. Pertinent Past History: h/o HTN, alcohol, and heroin use disorder. - Physical Exam Results Vital Signs: Vital Signs Temperature 97.0 F L 05/01/19 13:18 Pulse Rate 99 H 05/01/19 13:18 Respiratory Rate 18 05/01/19 13:18 Blood Pressure 147/99 05/01/19 13:18 O2 Sat by Pulse Oximetry (%) Vital Signs 05/01/19 05/01/19 09:24 13:18 Temperature 96.4 F L 97.0 F L Pulse Rate 79 99 H Respiratory 17 18 Rate Blood Pressure 144/92 147/99 Laboratory Last Values Sodium 136 mmol/L (136-145) 04/29/19 07:50 Potassium 3.6 mmol/L (3.5-5.1) 04/29/19 07:50 Chloride 103 mmol/L (98-107) 04/29/19 07:50 Carbon Dioxide 26 mmol/L (21-32) 04/29/19 07:50 Anion Gap 7 MMOL/L (8-16) L 04/29/19 07:50 BUN 6.8 mg/dL (7-18) L 04/29/19 07:50 Creatinine 0.6 mg/dL (0.55-1.3) 04/29/19 07:50 Est GFR (CKD-EPI)AfAm 147.82 04/29/19 07:50 Est GFR (CKD-EPI)NonAf 127.55 04/29/19 07:50 Random Glucose 95 mg/dL (74-106) 04/29/19 07:50 Calcium 8.9 mg/dL (8.5-10.1) 04/29/19 07:50 Total Bilirubin 0.8 mg/dL (0.2-1) 04/29/19 07:50 AST 146 U/L (15-37) H 04/30/19 07:10 ALT 170 U/L (13-61) H 04/29/19 07:50 Alkaline Phosphatase 122 U/L (45-117) H 04/29/19 07:50 Ammonia 88.50 umol/L (11-32) H 04/29/19 07:50 Total Protein 7.6 g/dl (6.4-8.2) 04/29/19 07:50 Albumin 3.5 g/dl (3.4-5.0) 04/29/19 07:50 Labs noted. Pertinent Admission Physical Exam Findings: withdrawal symptoms. - Treatment Hospital Course: Detox Protocol Followed, Detoxed Safely, Responded well, Discharged Condition Good, Rehab Referral Accepted Patient has Accepted a Rehab Referral to: [facility] - Medication Discharge Medications: Ambulatory Orders Folic Acid - 1 mg PO DAILY #30 tablet 02/05/19 Thiamine HCl [Vitamin B1 Injection -] 200 mg PO DAILY #30 vial 02/05/19 Docusate Sodium [Stool Softener] 100 mg PO DAILY #30 capsule 02/06/19 Sennosides [Senna -] 1 tab PO DAILY #30 tablet 02/06/19 Pantoprazole Sodium [Protonix -] 40 mg PO DAILY #14 tablet.ec 02/23/19 Amlodipine Besylate [Norvasc -] 10 mg PO DAILY #30 tablet 04/07/19 Lactulose (Oral Use) [Cephulac -] 20 gm PO TID #1 udc 04/07/19 Rifaximin [Xifaxan -] 550 mg PO BID #60 tablet 04/07/19 Methadone [Dolophine -] 10 mg PO DAILY MDD 60 04/12/19 Multivitamins [Multivit ([facility] Formul[facility])] 1 tab PO DAILY tab 04/27/19 Thiamine HCl [Vitamin B1 -] 100 mg PO DAILY tablet 04/27/19 - Diagnosis (1) Alcohol dependence with withdrawal, uncomplicated Status: Acute (2) Elevated liver enzymes Status: Chronic (3) Hx of jaundice Status: Chronic (4) Hypertension Status: Chronic Qualifiers: Hypertension type: essential hypertension Qualified Code(s): I10 - Essential (primary) hypertension (5) Nicotine dependence Status: Chronic Qualifiers: Nicotine product type: cigarettes Substance use status: uncomplicated Qualified Code(s): F17.210 - Nicotine dependence, cigarettes, uncomplicated (6) Opioid dependence on agonist therapy Status: Chronic - AMA Did Patient Leave Against Medical Advice: No
== END 2019-05-01 13:39 | disposition other institution (70) | DRG 773 ==
LOC: YASAS 14:23 → Y3N 17:49
PROVIDERS: ADMIT Allergy & Immunology; ATTEND Allergy & Immunology
PROC: HZ2ZZZZ Detoxification Services for Substance Abuse Treatment (ICD-10-PCS; principal; 2019-04-27)
DX: F10.230 Alcohol dependence with withdrawal, uncomplicated (principal); F11.20 Opioid dependence, uncomplicated; F17.210 Nicotine dependence, cigarettes, uncomplicated; I10 Essential (primary) hypertension; R94.5 Abnormal results of liver function studies; R74.0 Nonspecific elevation of levels of transaminase and lactic acid dehydrogenase [LDH]; E72.20 Disorder of urea cycle metabolism, unspecified; E66.9 Obesity, unspecified; Z68.29 Body mass index [BMI] 29.0-29.9, adult; K70.10 Alcoholic hepatitis without ascites; Z86.69 Personal history of other diseases of the nervous system and sense organs
CPT/HCPCS: 36415; 80053; 82140; 84450

== ENCOUNTER 2019-05-01 12:39 | Inpatient (IN) | payer OTHER ==
[2019-05-01] MEDS ORDERED: guaiFENesin 200 MG/10 ML 10 ML UNIT-DOSE CUPS PO PRN (12:58)
[2019-05-01] MEDS ORDERED: MAGNESIUM HYDROX 2400MG/30ML ORAL SUSPENSION 30 ML CUP PO PRN (12:58)
[2019-05-01] MEDS ORDERED: MENTHOL/PHENOL 1 EACH UD MM PRN (12:58)
[2019-05-01] MEDS ORDERED: hydrOXYzine PAMOATE 25 MG CAPSULE (FP) PO PRN (12:58)
[2019-05-01] MEDS ORDERED: LOPERAMIDE HCL 2 MG CAPSULE PO PRN (12:58)
[2019-05-01] MEDS ORDERED: MAG HYDROX/AL HYDROX/SIMETH 30 ML UNIT-DOSE CUP PO PRN (12:58)
[2019-05-01] MEDS ORDERED: P-EPHED 60MG/TRIPROLIDI 2.5MG TABLET PO PRN (12:58)
[2019-05-01] MEDS ORDERED: ACETAMINOPHEN 325 MG TABLET (FP) PO PRN (12:58)
[2019-05-01] MEDS ORDERED: MAGNESIUM CITRATE 300 ML BOTTLE PO PRN (12:58)
[2019-05-01] MEDS ORDERED: NICOTINE POLACRILEX 2 MG GUM BUC PRN (14:22)
--- NOTE | 2019-05-01 15:37 | PN ---
[facility] Progress Note Note: Patient admitted to [facility], orders placed, home medications reviewed, labs reviewed, problem list reviewed. Previous admissions reviewed, safety maintained. Vital Signs Period Temp Pulse Resp BP Sys/Phipps Pulse Ox Last 24 Hr 97.3 F 102 18 153/91 Continue with substance use treatment Maintain safety
[2019-05-01] MEDS ORDERED: LACTULOSE 20 GM/30 ML UDC (FOR ORAL USE ONLY) PO PRN (15:55)
[2019-05-01] MEDS: THIAMINE HCL 100 MG TABLET (FP) PO SCH (21:24)
[2019-05-01] MEDS: MELATONIN 5 MG TABLETS PO PRN (21:24)
[2019-05-01] MEDS: LACTULOSE 20 GM/30 ML UDC (FOR ORAL USE ONLY) PO SCH (21:25)
[2019-05-02] MEDS: METHADONE HCL 10 MG TABLET PO SCH (07:02)
[2019-05-02] MEDS: LACTULOSE 20 GM/30 ML UDC (FOR ORAL USE ONLY) PO SCH ×3 (07:02→21:20)
[2019-05-02] MEDS: PRENATAL VITAMINS W/ FOLIC ACID TABLET (FP) PO SCH (09:25)
[2019-05-02] MEDS: NICOTINE 14 MG/24 HOURS TOPICAL PATCH TD SCH (09:26)
[2019-05-02] MEDS: PANTOPRAZOLE 40 MG TABLET (FP) PO SCH (09:26)
[2019-05-02] MEDS: amLODIPine BESYLATE 10 MG TABLET (FP) PO SCH (09:26)
[2019-05-02] MEDS: MELATONIN 5 MG TABLETS PO PRN (21:20)
[2019-05-02] MEDS: THIAMINE HCL 100 MG TABLET (FP) PO SCH (21:20)
[2019-05-03] MEDS: LACTULOSE 20 GM/30 ML UDC (FOR ORAL USE ONLY) PO SCH ×3 (06:26→21:10)
[2019-05-03] MEDS: METHADONE HCL 10 MG TABLET PO SCH (06:26)
[2019-05-03] MEDS: NICOTINE 14 MG/24 HOURS TOPICAL PATCH TD SCH (09:27)
[2019-05-03] MEDS: amLODIPine BESYLATE 10 MG TABLET (FP) PO SCH (09:27)
[2019-05-03] MEDS: PRENATAL VITAMINS W/ FOLIC ACID TABLET (FP) PO SCH (09:27)
[2019-05-03] MEDS: PANTOPRAZOLE 40 MG TABLET (FP) PO SCH (09:27)
[2019-05-03] MEDS: THIAMINE HCL 100 MG TABLET (FP) PO SCH (21:10)
[2019-05-03] MEDS: MELATONIN 5 MG TABLETS PO PRN (21:10)
[2019-05-04] MEDS: METHADONE HCL 10 MG TABLET PO SCH (06:12)
[2019-05-04] MEDS: LACTULOSE 20 GM/30 ML UDC (FOR ORAL USE ONLY) PO SCH ×3 (06:12→21:20)
[2019-05-04] MEDS: amLODIPine BESYLATE 10 MG TABLET (FP) PO SCH (09:40)
[2019-05-04] MEDS: PANTOPRAZOLE 40 MG TABLET (FP) PO SCH (09:40)
[2019-05-04] MEDS: PRENATAL VITAMINS W/ FOLIC ACID TABLET (FP) PO SCH (09:40)
[2019-05-04] MEDS: NICOTINE 14 MG/24 HOURS TOPICAL PATCH TD SCH (09:41)
[2019-05-04] MEDS: MELATONIN 5 MG TABLETS PO PRN (21:21)
[2019-05-04] MEDS: THIAMINE HCL 100 MG TABLET (FP) PO SCH (21:21)
[2019-05-05] MEDS: METHADONE HCL 10 MG TABLET PO SCH (06:07)
[2019-05-05] MEDS: LACTULOSE 20 GM/30 ML UDC (FOR ORAL USE ONLY) PO SCH ×3 (06:07→21:09)
[2019-05-05] MEDS: PANTOPRAZOLE 40 MG TABLET (FP) PO SCH (09:45)
[2019-05-05] MEDS: amLODIPine BESYLATE 10 MG TABLET (FP) PO SCH (09:45)
[2019-05-05] MEDS: PRENATAL VITAMINS W/ FOLIC ACID TABLET (FP) PO SCH (09:45)
[2019-05-05] MEDS: NICOTINE 14 MG/24 HOURS TOPICAL PATCH TD SCH (09:46)
[2019-05-05] MEDS: THIAMINE HCL 100 MG TABLET (FP) PO SCH (21:09)
[2019-05-05] MEDS: MELATONIN 5 MG TABLETS PO PRN (21:09)
[2019-05-06] MEDS: LACTULOSE 20 GM/30 ML UDC (FOR ORAL USE ONLY) PO SCH ×3 (06:06→21:52)
[2019-05-06] MEDS: METHADONE HCL 10 MG TABLET PO SCH (06:06)
[2019-05-06] MEDS: PRENATAL VITAMINS W/ FOLIC ACID TABLET (FP) PO SCH (09:32)
[2019-05-06] MEDS: amLODIPine BESYLATE 10 MG TABLET (FP) PO SCH (09:32)
[2019-05-06] MEDS: PANTOPRAZOLE 40 MG TABLET (FP) PO SCH (09:33)
[2019-05-06] MEDS: NICOTINE 14 MG/24 HOURS TOPICAL PATCH TD SCH (09:33)
[2019-05-06] MEDS: MELATONIN 5 MG TABLETS PO PRN (21:52)
[2019-05-06] MEDS: THIAMINE HCL 100 MG TABLET (FP) PO SCH (21:52)
[2019-05-07] MEDS: METHADONE HCL 10 MG TABLET PO SCH (05:59)
[2019-05-07] MEDS: LACTULOSE 20 GM/30 ML UDC (FOR ORAL USE ONLY) PO SCH ×3 (05:59→21:15)
[2019-05-07] MEDS: IBUPROFEN 400 MG TABLET (FP) PO PRN (06:25)
[2019-05-07] MEDS: PANTOPRAZOLE 40 MG TABLET (FP) PO SCH (10:29)
[2019-05-07] MEDS: amLODIPine BESYLATE 10 MG TABLET (FP) PO SCH (10:29)
[2019-05-07] MEDS: NICOTINE 14 MG/24 HOURS TOPICAL PATCH TD SCH (10:29)
[2019-05-07] MEDS: PRENATAL VITAMINS W/ FOLIC ACID TABLET (FP) PO SCH (10:29)
[2019-05-07] MEDS: THIAMINE HCL 100 MG TABLET (FP) PO SCH (21:15)
[2019-05-07] MEDS: MELATONIN 5 MG TABLETS PO PRN (21:16)
[2019-05-08] MEDS: METHADONE HCL 10 MG TABLET PO SCH (05:59)
[2019-05-08] MEDS: LACTULOSE 20 GM/30 ML UDC (FOR ORAL USE ONLY) PO SCH ×3 (05:59→21:36)
[2019-05-08] MEDS: PANTOPRAZOLE 40 MG TABLET (FP) PO SCH (09:53)
[2019-05-08] MEDS: PRENATAL VITAMINS W/ FOLIC ACID TABLET (FP) PO SCH (09:53)
[2019-05-08] MEDS: amLODIPine BESYLATE 10 MG TABLET (FP) PO SCH (09:53)
[2019-05-08] MEDS: IBUPROFEN 400 MG TABLET (FP) PO PRN (09:54)
[2019-05-08] MEDS: NICOTINE 14 MG/24 HOURS TOPICAL PATCH TD SCH (09:55)
[2019-05-08 10:14] LABS: BILIRUBIN,TOTAL 0.6 mg/dL (0.2-1); BLOOD UREA NITROGEN 8.6 mg/dL (7-18); CALCIUM 9.2 mg/dL (8.5-10.1); CREATININE 0.7 mg/dL (0.55-1.3); POTASSIUM 3.9 mmol/L (3.5-5.1); TOT PROT 8.5 g/dl (6.4-8.2)
--- NOTE | 2019-05-08 13:52 | PN ---
[facility] Progress Note Note: Laboratory Tests 05/04/19 05/08/19 05/08/19 08:26 07:40 07:40 Sodium 137 Potassium 3.9 Chloride 100 Carbon Dioxide 30 Anion Gap 7 L BUN 8.6 Creatinine 0.7 Est GFR (CKD-EPI)AfAm 138.75 Est GFR (CKD-EPI)NonAf 119.71 Random Glucose 92 Calcium 9.2 Total Bilirubin 0.6 AST 61 H ALT 171 H Alkaline Phosphatase 150 H Ammonia 63.10 H 73.70 H Total Protein 8.5 H Albumin 4.0 Vital Signs Temperature 97.9 F 05/08/19 07:12 Pulse Rate 87 05/08/19 09:30 Respiratory Rate 18 05/08/19 09:30 Blood Pressure 133/81 05/08/19 09:30 O2 Sat by Pulse Oximetry (%) Labs reviewed. Patient has hx of liver failure which is reflected in elevation of LFTS. Ammonia level increased from 63 to 73. Will continue Lactulose and repeat level in one week.
[2019-05-08] MEDS: MELATONIN 5 MG TABLETS PO PRN (21:36)
[2019-05-08] MEDS: THIAMINE HCL 100 MG TABLET (FP) PO SCH (21:36)
[2019-05-09] MEDS: LACTULOSE 20 GM/30 ML UDC (FOR ORAL USE ONLY) PO SCH ×3 (06:04→21:35)
[2019-05-09] MEDS: METHADONE HCL 10 MG TABLET PO SCH (06:05)
[2019-05-09] MEDS: PRENATAL VITAMINS W/ FOLIC ACID TABLET (FP) PO SCH (09:43)
[2019-05-09] MEDS: amLODIPine BESYLATE 10 MG TABLET (FP) PO SCH (09:43)
[2019-05-09] MEDS: PANTOPRAZOLE 40 MG TABLET (FP) PO SCH (09:43)
[2019-05-09] MEDS: NICOTINE 14 MG/24 HOURS TOPICAL PATCH TD SCH (09:43)
[2019-05-09] MEDS: THIAMINE HCL 100 MG TABLET (FP) PO SCH (21:35)
[2019-05-09] MEDS: MELATONIN 5 MG TABLETS PO PRN (21:35)
[2019-05-10] MEDS: LACTULOSE 20 GM/30 ML UDC (FOR ORAL USE ONLY) PO SCH ×3 (05:59→21:05)
[2019-05-10] MEDS: METHADONE HCL 10 MG TABLET PO SCH (05:59)
[2019-05-10] MEDS: PRENATAL VITAMINS W/ FOLIC ACID TABLET (FP) PO SCH (09:30)
[2019-05-10] MEDS: NICOTINE 14 MG/24 HOURS TOPICAL PATCH TD SCH (09:30)
[2019-05-10] MEDS: amLODIPine BESYLATE 10 MG TABLET (FP) PO SCH (09:30)
[2019-05-10] MEDS: PANTOPRAZOLE 40 MG TABLET (FP) PO SCH (09:30)
[2019-05-10] MEDS: MELATONIN 5 MG TABLETS PO PRN (21:04)
[2019-05-10] MEDS: THIAMINE HCL 100 MG TABLET (FP) PO SCH (21:04)
[2019-05-11] MEDS: LACTULOSE 20 GM/30 ML UDC (FOR ORAL USE ONLY) PO SCH ×3 (06:17→21:35)
[2019-05-11] MEDS: METHADONE HCL 10 MG TABLET PO SCH (06:17)
[2019-05-11] MEDS: PANTOPRAZOLE 40 MG TABLET (FP) PO SCH (09:50)
[2019-05-11] MEDS: PRENATAL VITAMINS W/ FOLIC ACID TABLET (FP) PO SCH (09:50)
[2019-05-11] MEDS: amLODIPine BESYLATE 10 MG TABLET (FP) PO SCH (09:50)
[2019-05-11] MEDS: NICOTINE 14 MG/24 HOURS TOPICAL PATCH TD SCH (09:50)
[2019-05-11] MEDS: THIAMINE HCL 100 MG TABLET (FP) PO SCH (21:35)
[2019-05-11] MEDS: MELATONIN 5 MG TABLETS PO PRN (21:35)
[2019-05-12] MEDS: METHADONE HCL 10 MG TABLET PO SCH (06:01)
[2019-05-12] MEDS: LACTULOSE 20 GM/30 ML UDC (FOR ORAL USE ONLY) PO SCH ×3 (06:01→21:12)
[2019-05-12] MEDS: amLODIPine BESYLATE 10 MG TABLET (FP) PO SCH (09:37)
[2019-05-12] MEDS: NICOTINE 14 MG/24 HOURS TOPICAL PATCH TD SCH (09:37)
[2019-05-12] MEDS: PRENATAL VITAMINS W/ FOLIC ACID TABLET (FP) PO SCH (09:37)
[2019-05-12] MEDS: PANTOPRAZOLE 40 MG TABLET (FP) PO SCH (09:37)
[2019-05-12] MEDS ORDERED: PT OWN MED DRAWER 7, Y5N ONE (09:48)
[2019-05-12] MEDS: THIAMINE HCL 100 MG TABLET (FP) PO SCH (21:12)
[2019-05-12] MEDS: MELATONIN 5 MG TABLETS PO PRN (21:12)
[2019-05-13] MEDS: METHADONE HCL 10 MG TABLET PO SCH (06:13)
[2019-05-13] MEDS: LACTULOSE 20 GM/30 ML UDC (FOR ORAL USE ONLY) PO SCH ×3 (06:13→21:33)
[2019-05-13] MEDS: amLODIPine BESYLATE 10 MG TABLET (FP) PO SCH (09:47)
[2019-05-13] MEDS: PRENATAL VITAMINS W/ FOLIC ACID TABLET (FP) PO SCH (09:47)
[2019-05-13] MEDS: NICOTINE 14 MG/24 HOURS TOPICAL PATCH TD SCH (09:48)
[2019-05-13] MEDS: PANTOPRAZOLE 40 MG TABLET (FP) PO SCH (10:53)
[2019-05-13] MEDS: MELATONIN 5 MG TABLETS PO PRN (21:33)
[2019-05-13] MEDS: THIAMINE HCL 100 MG TABLET (FP) PO SCH (21:33)
[2019-05-14] MEDS: METHADONE HCL 10 MG TABLET PO SCH (05:56)
[2019-05-14] MEDS: LACTULOSE 20 GM/30 ML UDC (FOR ORAL USE ONLY) PO SCH ×3 (05:56→21:10)
[2019-05-14] MEDS: NICOTINE 14 MG/24 HOURS TOPICAL PATCH TD SCH (10:00)
[2019-05-14] MEDS: amLODIPine BESYLATE 10 MG TABLET (FP) PO SCH (10:00)
[2019-05-14] MEDS: PRENATAL VITAMINS W/ FOLIC ACID TABLET (FP) PO SCH (10:00)
[2019-05-14] MEDS: PANTOPRAZOLE 40 MG TABLET (FP) PO SCH (10:00)
--- NOTE | 2019-05-14 10:53 | PN ---
[facility] Progress Note Note: 38 year old male with alcohol dependence and opioid dependence in rehab almost completed for alcohol withdrawals. He is only on 10mg of methadone which was maintained while in rehab. He has agreed to start Vivitrol upon discharge on Saturday.This MAT will treat both the opioid and alcohol substance use disorders. Will D/C the methadone today. Spoke to Emma Christine who will be administering Vivitrol on Saturday as soon as he gets to [facility]. Counselor in rehab will make the appointment for him in [facility]. This provider will start low doses of naltrexone tomorrow and continue through till Saturday and pre-order the Vivitrol for the patient to be administered in [facility] on 05/18/2019. Dr. Henley
[2019-05-14] MEDS: THIAMINE HCL 100 MG TABLET (FP) PO SCH (21:10)
[2019-05-14] MEDS: MELATONIN 5 MG TABLETS PO PRN (21:10)
[2019-05-15] MEDS: METHADONE HCL 10 MG TABLET PO SCH (05:53)
[2019-05-15] MEDS: LACTULOSE 20 GM/30 ML UDC (FOR ORAL USE ONLY) PO SCH ×3 (05:53→21:17)
[2019-05-15] MEDS: NALTREXONE HCL 50 MG TABLET PO SCH (10:07)
[2019-05-15] MEDS: PRENATAL VITAMINS W/ FOLIC ACID TABLET (FP) PO SCH (10:07)
[2019-05-15] MEDS: PANTOPRAZOLE 40 MG TABLET (FP) PO SCH (10:07)
[2019-05-15] MEDS: amLODIPine BESYLATE 10 MG TABLET (FP) PO SCH (10:07)
[2019-05-15] MEDS: NICOTINE 14 MG/24 HOURS TOPICAL PATCH TD SCH (10:17)
[2019-05-15] MEDS: hydrOXYzine PAMOATE 50 MG CAPSULE (FP) PO PRN (14:06)
[2019-05-15] MEDS: THIAMINE HCL 100 MG TABLET (FP) PO SCH (21:16)
[2019-05-15] MEDS: MELATONIN 5 MG TABLETS PO PRN (21:17)
[2019-05-16] MEDS: LACTULOSE 20 GM/30 ML UDC (FOR ORAL USE ONLY) PO SCH ×3 (06:09→21:18)
[2019-05-16] MEDS: amLODIPine BESYLATE 10 MG TABLET (FP) PO SCH (09:20)
[2019-05-16] MEDS: NALTREXONE HCL 50 MG TABLET PO SCH (09:20)
[2019-05-16] MEDS: NICOTINE 14 MG/24 HOURS TOPICAL PATCH TD SCH (09:20)
[2019-05-16] MEDS: PANTOPRAZOLE 40 MG TABLET (FP) PO SCH (09:20)
[2019-05-16] MEDS: PRENATAL VITAMINS W/ FOLIC ACID TABLET (FP) PO SCH (09:20)
[2019-05-16] MEDS: hydrOXYzine PAMOATE 50 MG CAPSULE (FP) PO PRN ×3 (09:21→21:19)
[2019-05-16] MEDS: IBUPROFEN 400 MG TABLET (FP) PO PRN (13:03)
[2019-05-16] MEDS: THIAMINE HCL 100 MG TABLET (FP) PO SCH (21:18)
[2019-05-16] MEDS: MELATONIN 5 MG TABLETS PO PRN (21:18)
[2019-05-17] MEDS: LACTULOSE 20 GM/30 ML UDC (FOR ORAL USE ONLY) PO SCH ×3 (06:06→21:13)
[2019-05-17] MEDS: hydrOXYzine PAMOATE 50 MG CAPSULE (FP) PO PRN ×3 (09:17→21:13)
[2019-05-17] MEDS: NICOTINE 14 MG/24 HOURS TOPICAL PATCH TD SCH (09:17)
[2019-05-17] MEDS: NALTREXONE HCL 50 MG TABLET PO SCH (09:17)
[2019-05-17] MEDS: PRENATAL VITAMINS W/ FOLIC ACID TABLET (FP) PO SCH (09:17)
[2019-05-17] MEDS: amLODIPine BESYLATE 10 MG TABLET (FP) PO SCH (09:17)
[2019-05-17] MEDS: PANTOPRAZOLE 40 MG TABLET (FP) PO SCH (09:17)
[2019-05-17] MEDS: THIAMINE HCL 100 MG TABLET (FP) PO SCH (21:13)
[2019-05-17] MEDS: MELATONIN 5 MG TABLETS PO PRN (21:13)
[2019-05-18] MEDS: LACTULOSE 20 GM/30 ML UDC (FOR ORAL USE ONLY) PO SCH (05:47)
[2019-05-18 06:44] VITALS: TEMP 97.6
[2019-05-18] MEDS: PRENATAL VITAMINS W/ FOLIC ACID TABLET (FP) PO SCH (09:03)
[2019-05-18] MEDS: PANTOPRAZOLE 40 MG TABLET (FP) PO SCH (09:03)
[2019-05-18] MEDS: amLODIPine BESYLATE 10 MG TABLET (FP) PO SCH (09:04)
[2019-05-18] MEDS: NALTREXONE HCL 50 MG TABLET PO SCH (09:04)
[2019-05-18] MEDS: NICOTINE 14 MG/24 HOURS TOPICAL PATCH TD SCH (09:04)
[2019-05-18 09:42] VITALS: BP 131/92; PULSE 97
--- NOTE | 2019-05-18 09:48 | DS ---
[facility] Rehab Discharge Summary - [facility] Rehab Discharge Summary Admission Date: 05/01/19 Discharge Date: 05/18/19 - History Present History: Alcohol dependence, MMTP - Discharge Physical Exam Vital Signs: Vital Signs Temperature 97.6 F 05/18/19 06:43 Pulse Rate 83 05/18/19 06:43 Respiratory Rate 18 05/18/19 06:43 Blood Pressure 139/93 05/18/19 06:43 O2 Sat by Pulse Oximetry (%) - Treatment Discharge Condition: Discharge condition good Hospital Course: PATIENT IS KNOWN PATIENT AT [facility] AND CLIENT OF MMTP WITH DR. MARINO. PATIENT HAS EXTENSIVE HX OF ALCOHOL DEPENDENCE AND LIVER DISEASE. HE WAS SEEN BY DR. MARINO ON 05/14/2019 AND MMTP WAS D/C. PATIENT STARTED ON REVIA CHALLENGE WITH PLAN TO START VIVITROL IN OUTPATIENT. PATIENT IS SCHEDULED FOR D/C TODAY WITH AFTERCARE AT [facility], APPOINTMENT IS ON 05/18/2019 AT 1:30PM . PATIENT IS MEDICALLY STABLE AT THIS TIME AND DENIES SI/HI. ROS: DENIES CP, SOB,DIZZINESS AND SWEATING. +C/O MILD TREMORS. PE: ALERT AND ORIENTED X 3 SKIN WARM, +FACIAL FLUSHING +PERRLA, EOMS INTACT BL IN NO ACUTE DISTRESS EXT FULL ROM, AMB AD WES, +MILD TREMORS DENIES SI/HI A/P: ALCOHOL DEPENDENCE STABLE FOR D/C FROM REHAB TODAY Vital Signs Temperature 97.6 F 05/18/19 06:43 Pulse Rate 97 H 05/18/19 09:30 Respiratory Rate 18 05/18/19 09:30 Blood Pressure 131/92 05/18/19 09:30 O2 Sat by Pulse Oximetry (%) - Medication Discharge Medications: Ambulatory Orders Folic Acid - 1 mg PO DAILY #30 tablet 02/05/19 Thiamine HCl [Vitamin B1 Injection -] 200 mg PO DAILY #30 vial 02/05/19 Docusate Sodium [Stool Softener] 100 mg PO DAILY #30 capsule 02/06/19 Sennosides [Senna -] 1 tab PO DAILY #30 tablet 02/06/19 Lactulose (Oral Use) [Cephulac -] 20 gm PO TID #1 udc 04/07/19 Rifaximin [Xifaxan -] 550 mg PO BID #60 tablet 12/03/19 Multivitamins [Multivit ([facility] Formulary)] 1 tab PO DAILY tab 04/27/19 Thiamine HCl [Vitamin B1 -] 100 mg PO DAILY tablet 04/27/19 Naltrexone HCl [Revia -] 50 mg PO DAILY #7 tablet 05/14/19 Naltrexone Microspheres [Vivitrol] 380 mg IM MONTHLY 30 Days #1 disp.syrin 05/14 Amlodipine Besylate [Norvasc -] 10 mg PO DAILY #14 tablet 05/18/19 Pantoprazole Sodium [Protonix -] 40 mg PO DAILY #14 tablet.ec 05/18/19 - Medication-Assisted Treatment (MAT) Medication-Assisted Treatment (MAT): Yes Medication Prescribed: Naltrexone (oral) MAT Follow-up Referral: [facility] - Discharge Instructions Diet, activity, other medical instructions: Diet: LOW NA DIET TOLERATED Activity: REGULAR TOLERATED Other medical instructions: FOLLOW UP WITH PCP RECOMMENDED - Follow-up Referral Minutes to complete discharge: 30 - AMA Did Patient Leave Against Medical Advice: No
== END 2019-05-18 09:35 | disposition home or self-care (01) | DRG 772 ==
LOC: YASAS 12:39 → Y3W 12:40
PROVIDERS: ADMIT Neuromusculoskeletal Medicine & OMM; ATTEND Neuromusculoskeletal Medicine & OMM
PROC: HZ42ZZZ Group Counseling for Substance Abuse Treatment, Cognitive-Behavioral (ICD-10-PCS; principal; 2019-05-01)
DX: F10.20 Alcohol dependence, uncomplicated (principal); F11.20 Opioid dependence, uncomplicated; R94.5 Abnormal results of liver function studies; E72.20 Disorder of urea cycle metabolism, unspecified
CPT/HCPCS: 36415; 80053; 82140

== ENCOUNTER 2019-05-25 20:12 | Emergency (ER) | payer OTHER ==
[2019-05-25 20:48] VITALS: BMI 33.2
--- NOTE | 2019-05-25 21:09 | PDOC ---
History of Present Illness - General Chief Complaint: Alcohol intoxication Stated Complaint: ABD PAIN Time Seen by Provider: 05/25/19 21:07 History Source: Patient Exam Limitations: Intoxication - History of Present Illness Initial Comments: 05/25/19 21:07 HPI: 38yo M with PMH HTN, GERD, polysubstance abuse (heroin on methadone, alcohol, nicotine, benzos, cocaine), hepatic encephalopathy (intubated in the past for DT) sent from [facility] for intoxication and reported suicidal ideation. Pt remains intoxicated. Last drink was 1/5L of vodka earlier today, unable to specify what time. Denies suicidal ideation to me. Patient endorsing nausea and abdominal pain. History and exam limited by his cooperation. Reports he needs to sleep, agrees to blood work before rolling over. All: NKDA Meds: Per chart PMH: As above PSH: Per chart Past History - Travel Traveled outside of the country in the last 30 days: No Close contact w/someone who was outside of country & ill: No - Past Medical History Allergies/Adverse Reactions: Allergies Allergy/AdvReac Type Severity Reaction Status Date / Time No Known Allergies Allergy Verified 05/25/19 20:34 Home Medications: Ambulatory Orders Folic Acid - 1 mg PO DAILY #30 tablet 02/05/19 Thiamine HCl [Vitamin B1 Injection -] 200 mg PO DAILY #30 vial 02/05/19 Docusate Sodium [Stool Softener] 100 mg PO DAILY #30 capsule 02/06/19 Sennosides [Senna -] 1 tab PO DAILY #30 tablet 02/06/19 Rifaximin [Xifaxan -] 550 mg PO BID #60 tablet 04/07/19 Multivitamins [Multivit ([facility] Formulary)] 1 tab PO DAILY tab 04/27/19 Amlodipine Besylate [Norvasc -] 10 mg PO DAILY #14 tablet 05/18/19 Nicotine Polacrilex [Nicotine Gum] 4 mg BC Q2H #1 box 05/18/19 Pantoprazole Sodium [Protonix -] 40 mg PO DAILY #14 tablet.ec 05/18/19 Naltrexone Microspheres [Vivitrol] 380 mg IM MONTHLY 30 Days #1 disp.syrin 05/22 Anemia: No Asthma: No Cancer: No Cardiac Disorders: No CVA: No COPD: No CHF: No Dementia: No Diabetes: No GI Disorders: Yes (GERD) Disorders: No HTN: Yes Hypercholesterolemia: No Kidney Stones: No Liver Disease: Yes (alcoholic hepatitis, history of liver failure) Seizures: Yes (alcohol related) Thyroid Disease: No - Surgical History Abdominal Surgery: No Appendectomy: No Cardiac Surgery: No Cholecystectomy: No Lung Surgery: No Neurologic Surgery: No Orthopedic Surgery: Yes (right index finger trauma at age 4) - Reproductive History Testicular Surgery: No - Immunization History Immunization Up to Date: No - Psycho Social/Smoking Cessation Hx Smoking History: Unknown if ever smoked Have you smoked in the past 12 months: Yes Number of Cigarettes Smoked Daily: 4 Cigars Per Day: 0 'Breaking Loose' booklet given: 05/18/19 Hx Alcohol Use: Yes Drug/Substance Use Hx: Yes Substance Use Type: Alcohol, Heroin Hx Substance Use Treatment: Yes (detox, rehab, MMTP) Review of Systems - Review of Systems Able to Perform ROS?: No (Intoxicated) Is the patient limited Pashto proficient: Yes *Physical Exam - Vital Signs Last Vital Signs Temp Pulse Resp BP Pulse Ox 97.2 F L 74 18 113/74 94 L 05/25/19 20:34 05/25/19 20:34 05/25/19 20:34 05/25/19 20:34 05/25/19 20:34 - Physical Exam 05/25/19 21:09 Vitals reviewed, AFVSS Appears stated age, no acute distress, appears intoxicated NCAT, MMM, normal morphologies, trachea midline, non-jaundiced RRR, nl s1s2, no murmurs appreciated CTABL, nl WOB, no wheezes/rales/rhonchi Soft, non-tender, non-distended WWP, normal cap refill, no clubbing / cyanosis / edema No psychomotor agitation, MAEE, slurring words ED Treatment Course - LABORATORY CBC & Chemistry Diagram: 05/25/19 21:45 05/25/19 21:45 Medical Decision Making - Medical Decision Making 05/25/19 21:55 38yo M with PMH HTN, GERD, polysubstance abuse (heroin on methadone, alcohol, nicotine, benzos, cocaine), hepatic encephalopathy (intubated in the past for DT ) sent from [facility] for intoxication and reported suicidal ideation. Presents denying suicidally, endorsing abdominal discomfort and nausea. History concerning for hx of hepatitis, alcoholism, severe withdrawal including DTs, will continue to monitor. DDX: Intox, gastritis, pancreatitis, colitis, hepatitis, cholecystitis. Will further narrow with labs, history once clinically improving. - CBC, CMP, Lipase, Ammonia, Coags - Acetaminophen, Salicylates, VBG - UA, UTox - EKG - Low threshold for benzos, banana bag 05/25/19 22:45 - Banana Bag ordered 05/25/19 23:15 - No leukocytosis, no anemia, normal coags - Normal electrolytes - Elevated LFTs - EKbpm, NSR, normal axis, normal intervals, QTc 452, narrow complexes, no ischemic changes or concerning morphologies, normal EKG - Lipase pending - Salicylates pending - UTox/UA Pending 05/25/19 23:46 - Banana bag hanging - Patient remains clinically intoxicated, intermittently sleeping, non- tremulous / no psychomotoragitation - Utox all negative 05/25/19 23:59 - Patient endorsed to overnight resident, Dr. Beverly - Disposition pending metabolization, remaining labs, sober MSE - Pending: Salicylates, Ammonia, VBG, Lipase - Continue to monitor for signs of acute withdrawal Discharge - Discharge Information Problems reviewed: Yes Clinical Impression/Diagnosis: Alcohol intoxication Qualifiers: Complication of substance-induced condition: uncomplicated Qualified Code(s): F10.920 - Alcohol use, unspecified with intoxication, uncomplicated Condition: Stable - Follow up/Referral - Patient Discharge Instructions Patient Printed Discharge Instructions: DI for Alcohol Abuse - Post Discharge Activity
[2019-05-25 22:04] LABS: BASO % 1.5 % (0-2.0); EOS % 2.7 % (0-4.5); HEMATOCRIT 49.7 % (35.4-49); HEMOGLOBIN 16.8 GM/dL (11.7-16.9); LYMPH % 39.8 % (8-40); MCH 30.1 pg (25.7-33.7); MCHC 33.8 g/dl (32.0-35.9); MEAN CELL VOLUME 89.1 fl (80-96); MEAN PLT VOLUME 7.5 fl (7.5-11.1); MONO % 5.8 % (3.8-10.2); NEUT % 50.2 % (42.8-82.8); PLATELET COUNT 269 K/MM3 (134-434); RBC 5.59 M/mm3 (4.00-5.60); RDW 14.6 % (11.9-15.9); WHITE BLOOD COUNT 7.7 K/mm3 (4.0-10.0)
[2019-05-25 22:18] LABS: INR 1.06 (0.83-1.09); PROTHROMBIN TIME (PATIENT) 12.5 SEC (9.7-13.0)
[2019-05-25 22:20] LABS: ACTIVATED PTT 32.6 SECONDS (25.2-36.5)
[2019-05-25 22:26] LABS: ALBUMIN 3.6 g/dl (3.4-5.0); BILIRUBIN,TOTAL 0.3 mg/dL (0.2-1); BLOOD UREA NITROGEN 4.8 mg/dL (7-18); CALCIUM 8.9 mg/dL (8.5-10.1); CREATININE 0.7 mg/dL (0.55-1.3); POTASSIUM 3.6 mmol/L (3.5-5.1); TOT PROT 8.3 g/dl (6.4-8.2)
--- NOTE | 2019-05-25 22:38 | PDOC ---
Documentation entered by Grace Faulkner SCRIBE, acting as scribe for Kristine Wheat MD. Kristine Wheat MD: This documentation has been prepared by the Lucie lewis Brenda, SCRIBE, under my direction and personally reviewed by me in its entirety. I confirm that the documentation accurately reflects all work, treatment, procedures, and medical decision making performed by me. Attending Attestation - Resident Resident Name: CiscoMisael - ED Attending Attestation I have performed the following: I have examined & evaluated the patient, The case was reviewed & discussed with the resident, I agree w/resident's findings & plan, Exceptions are as noted - HPI HPI: 05/25/19 21:35 The patient is a 38 year old male with a significant past medical history of HTN , HERD, polysubstance abuse, hepatic encephalopathy (intubated in the past for DT) who presents to the ED from [facility] for intoxication and suicidal ideations. Patient was reported to be checking himself into [facility], when he was intoixated and showing suicidal ideation, and was subsequently sent to the ED. Patient was unable to give any history due to intoxication state. All: NKDA Social Hx: Polysubstance abuse (cocaine, heroin, tobacco, alcohol) - Physicial Exam PE: 05/25/19 21:39 GENERAL: (+) Alcohol smelled on breath. (+) Slurred speech. (+) Appears older than stated age. Somnolent, in no acute distress HEAD: No signs of trauma. No scalp laceration. EYES: PERRLA, EOMI, sclera anicteric, conjunctiva clear ENT: Auricles normal inspection, hearing grossly normal. 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 No wheezes, and no crackles HEART: Regular rate and rhythm, normal S1 and S2, no murmurs, rubs or gallops EXTREMITIES: MOving all extremities NEUROLOGICAL: somnolent,AOB,moving extremities SKIN: Warm, keshav complexion 05/25/19 22:34 - Medical Decision Making 05/25/19 22:36 38-year-old male with a longstanding history of alcoholism, liver disease and MTP, hepatorenal encephalopathy brought in by ambulance from [facility] for intoxication Patient was in alcohol detox April 27 to May 01 at [place] [facility] Plan [place] bag, chemistries, reassess
[2019-05-25] MEDS ORDERED: FOLIC ACID INJECTION - 1 MG, THIAMINE HCL 100 MG, MULTIVIT INJECTION ADULT 10 ML in SOD... IVPB ONE (22:46)
[2019-05-25 23:27] LABS: COCAINE, UR NEGATIVE ng/ml (CUTOFF=300); METHADONE, UR NEGATIVE ng/ml (CUTOFF=300); OPIATES, URI NEGATIVE ng/ml (CUTOFF=300); PHENCYCLIDINE,URINE NEGATIVE ng/ml (CUTOFF=25); URINE AMPHETAMINES NEGATIVE ng/ml (CUTOFF=500); URINE BARBITURATES NEGATIVE ng/ml (CUTOFF=200); URINE BENZODIAZEPINES NEGATIVE ng/ml (CUTOFF=200)
--- NOTE | 2019-05-26 00:01 | PDOC ---
*Physical Exam - Vital Signs Last Vital Signs Temp Pulse Resp BP Pulse Ox 97.2 F L 74 18 113/74 94 L 05/25/19 20:34 05/25/19 20:34 05/25/19 20:34 05/25/19 20:34 05/25/19 20:34 ED Treatment Course - LABORATORY CBC & Chemistry Diagram: 05/25/19 21:45 05/25/19 21:45 - ADDITIONAL ORDERS Additional order review: Laboratory Results 05/25/19 05/25/19 05/25/19 22:58 21:45 21:45 PT with INR 12.50 INR 1.06 PTT (Actin FS) 32.6 Sodium 142 Potassium 3.6 Chloride 107 Carbon Dioxide 26 Anion Gap 10 BUN 4.8 L Creatinine 0.7 Est GFR (CKD-EPI)AfAm 138.75 Est GFR (CKD-EPI)NonAf 119.71 Random Glucose 97 Calcium 8.9 Total Bilirubin 0.3 AST 77 H ALT 116 H Alkaline Phosphatase 155 H Total Protein 8.3 H Albumin 3.6 Opiates Screen Negative Methadone Screen Negative Acetaminophen Barbiturate Screen Negative Phencyclidine Screen Negative Ur Amphetamines Screen Negative MDMA (Ecstasy) Screen Negative Benzodiazepines Screen Negative Cocaine Screen Negative U Marijuana (THC) Screen Negative 05/25/19 21:45 PT with INR INR PTT (Actin FS) Sodium Potassium Chloride Carbon Dioxide Anion Gap BUN Creatinine Est GFR (CKD-EPI)AfAm Est GFR (CKD-EPI)NonAf Random Glucose Calcium Total Bilirubin AST ALT Alkaline Phosphatase Total Protein Albumin Opiates Screen Methadone Screen Acetaminophen <2.0 Barbiturate Screen Phencyclidine Screen Ur Amphetamines Screen MDMA (Ecstasy) Screen Benzodiazepines Screen Cocaine Screen U Marijuana (THC) Screen 05/25/19 21:45 RBC 5.59 MCV 89.1 MCHC 33.8 RDW 14.6 MPV 7.5 D Neutrophils % 50.2 D Lymphocytes % 39.8 D Monocytes % 5.8 Eosinophils % 2.7 Basophils % 1.5 Medical Decision Making - Medical Decision Making 05/26/19 00:00 Pt received on sign out from Dr. Peck. 38M presenting with intoxication. F/u salicylates, ammonia, VBG, lipase, reassess clinically. Continue to monitor. 05/26/19 06:33 Pt ambulating and able to have a conversation. Pt reassessed with Slovak vegetable picker. Reports passive suicidal ideation. States "I'm depressed. I want to ." Does not have a plan to kill himself. Call placed to Dr. Sidhu for psych eval. 05/26/19 07:[address] Pt signed out to [address]. Melton. Discharge - Discharge Information Problems reviewed: Yes Clinical Impression/Diagnosis: Alcohol intoxication Qualifiers: Complication of substance-induced condition: uncomplicated Qualified Code(s): F10.920 - Alcohol use, unspecified with intoxication, uncomplicated Condition: Stable Disposition: TRANSFER ACUTE CARE/OTHER HOSP - Follow up/Referral - Patient Discharge Instructions Patient Printed Discharge Instructions: DI for Alcohol Abuse Additional Instructions: You were seen in the ER for alcohol intoxication. it is strongly recommended that you receive care and further evaluation at [facility] which is a detox facility to address your alcohol use. Your care is not complete until you do so. Return to the Emergency room if you experience worsening symptoms. - Post Discharge Activity
--- NOTE | 2019-05-26 07:15 | PDOC ---
*Physical Exam - Vital Signs Last Vital Signs Temp Pulse Resp BP Pulse Ox 97.2 F L 74 18 113/74 94 L 05/25/19 20:34 05/25/19 20:34 05/25/19 20:34 05/25/19 20:34 05/25/19 20:34 ED Treatment Course - LABORATORY CBC & Chemistry Diagram: 05/25/19 21:45 05/25/19 21:45 - ADDITIONAL ORDERS Additional order review: Laboratory Results 05/26/19 05/25/19 05/25/19 02:42 22:58 21:45 PT with INR INR PTT (Actin FS) Sodium Potassium Chloride Carbon Dioxide Anion Gap BUN Creatinine Est GFR (CKD-EPI)AfAm Est GFR (CKD-EPI)NonAf Random Glucose Calcium Total Bilirubin AST ALT Alkaline Phosphatase Total Protein Albumin Lipase Cancelled Salicylates Opiates Screen Negative Methadone Screen Negative Acetaminophen Barbiturate Screen Negative Phencyclidine Screen Negative Ur Amphetamines Screen Negative MDMA (Ecstasy) Screen Negative Benzodiazepines Screen Negative Cocaine Screen Negative U Marijuana (THC) Screen Negative Alcohol, Quantitative 194.6 H 05/25/19 05/25/19 05/25/19 21:45 21:45 21:45 PT with INR 12.50 INR 1.06 PTT (Actin FS) 32.6 Sodium 142 Potassium 3.6 Chloride 107 Carbon Dioxide 26 Anion Gap 10 BUN 4.8 L Creatinine 0.7 Est GFR (CKD-EPI)AfAm 138.75 Est GFR (CKD-EPI)NonAf 119.71 Random Glucose 97 Calcium 8.9 Total Bilirubin 0.3 AST 77 H ALT 116 H Alkaline Phosphatase 155 H Total Protein 8.3 H Albumin 3.6 Lipase 258 Salicylates < 1.7 L Opiates Screen Methadone Screen Acetaminophen <2.0 Barbiturate Screen Phencyclidine Screen Ur Amphetamines Screen MDMA (Ecstasy) Screen Benzodiazepines Screen Cocaine Screen U Marijuana (THC) Screen Alcohol, Quantitative 05/25/19 21:45 RBC 5.59 MCV 89.1 MCHC 33.8 RDW 14.6 MPV 7.5 D Neutrophils % 50.2 D Lymphocytes % 39.8 D Monocytes % 5.8 Eosinophils % 2.7 Basophils % 1.5 - Medications Given in the ED: ED Medications Discontinued Medications Generic Name Dose Route Start Last Admin Trade Name Freq PRN Reason Stop Dose Admin Folic Acid 1 mg/ Thiamine HCl 1,000 mls @ 125 mls/hr 05/25/19 22:46 05/25/19 23:44 100 mg/ Multivitamins/Minerals IVPB 05/26/19 06:45 125 mls/hr 10 ml/ Sodium Chloride ONCE ONE Administration Medical Decision Making - Medical Decision Making 05/26/19 07:13 hx of alchohol abuse sent in form [facility] for intoxication and suicidal ideation -lab work wnl -more coherent now than at initial presentaion -suicidal ideation with no plan -Dr. 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 He has been counselled that he can't leave without a psych evaluation currently on Condition 10. ; Meds: Zofran for nausea Ativan 2mg IV push for agitation. 05/26/19 10:20 Dr. Sidhu contacted for estimated ETA. message left Pt cleared by Dr. Sidhu . discharged 06/10/19 12:21 Discharge - Discharge Information Problems reviewed: Yes Clinical Impression/Diagnosis: Alcohol intoxication Qualifiers: Complication of substance-induced condition: uncomplicated Qualified Code(s): F10.920 - Alcohol use, unspecified with intoxication, uncomplicated Condition: Stable Disposition: TRANSFER ACUTE CARE/OTHER HOSP - Admission No - Follow up/Referral - Patient Discharge Instructions Patient Printed Discharge Instructions: DI for Alcohol Abuse Additional Instructions: You were seen in the ER for alcohol intoxication. it is strongly recommended that you receive care and further evaluation at [facility] which is a detox facility to address your alcohol use. Your care is not complete until you do so. Return to the Emergency room if you experience worsening symptoms. - Post Discharge Activity
[2019-05-26] MEDS ORDERED: ONDANSETRON 4 MG/2 ML VIAL IVPUSH ONE (07:50)
[2019-05-26] MEDS ORDERED: LORazepam 2 MG/ML SDV VIAL ONE (07:55)
[2019-05-26] MEDS ORDERED: ONDANSETRON 4 MG/2 ML VIAL ONE (07:56)
[2019-05-26] MEDS: chlordiazePOXIDE HCL 25 MG CAPSULE PO ONE ×2 (08:12→09:48)
--- NOTE | 2019-05-26 11:06 | PDOC ---
*Physical Exam - Vital Signs Last Vital Signs Temp Pulse Resp BP Pulse Ox 97.2 F L 74 18 113/74 94 L 05/25/19 20:34 05/25/19 20:34 05/25/19 20:34 05/25/19 20:34 05/25/19 20:34 - Physical Exam 05/26/19 11:03 vss, HR normalized after benzo alert, ambulatory neuro intact ED Treatment Course - LABORATORY CBC & Chemistry Diagram: 05/25/19 21:45 05/25/19 21:45 - ADDITIONAL ORDERS Additional order review: Laboratory Results 05/26/19 05/25/19 05/25/19 02:42 22:58 21:45 Sodium Potassium Chloride Carbon Dioxide Anion Gap BUN Creatinine Est GFR (CKD-EPI)AfAm Est GFR (CKD-EPI)NonAf Random Glucose Calcium Total Bilirubin AST ALT Alkaline Phosphatase Total Protein Albumin Lipase Cancelled Salicylates Opiates Screen Negative Methadone Screen Negative Acetaminophen Barbiturate Screen Negative Phencyclidine Screen Negative Ur Amphetamines Screen Negative MDMA (Ecstasy) Screen Negative Benzodiazepines Screen Negative Cocaine Screen Negative U Marijuana (THC) Screen Negative Alcohol, Quantitative 194.6 H 05/25/19 05/25/19 21:45 21:45 Sodium 142 Potassium 3.6 Chloride 107 Carbon Dioxide 26 Anion Gap 10 BUN 4.8 L Creatinine 0.7 Est GFR (CKD-EPI)AfAm 138.75 Est GFR (CKD-EPI)NonAf 119.71 Random Glucose 97 Calcium 8.9 Total Bilirubin 0.3 AST 77 H ALT 116 H Alkaline Phosphatase 155 H Total Protein 8.3 H Albumin 3.6 Lipase 258 Salicylates < 1.7 L Opiates Screen Methadone Screen Acetaminophen <2.0 Barbiturate Screen Phencyclidine Screen Ur Amphetamines Screen MDMA (Ecstasy) Screen Benzodiazepines Screen Cocaine Screen U Marijuana (THC) Screen Alcohol, Quantitative 05/25/19 21:45 RBC 5.59 MCV 89.1 MCHC 33.8 RDW 14.6 MPV 7.5 D Neutrophils % 50.2 D Lymphocytes % 39.8 D Monocytes % 5.8 Eosinophils % 2.7 Basophils % 1.5 - Medications Given in the ED: ED Medications Discontinued Medications Generic Name Dose Route Start Last Admin Trade Name Freq PRN Reason Stop Dose Admin Chlordiazepoxide HCl 50 mg 05/26/19 07:51 05/26/19 09:48 Librium - PO 05/26/19 07:52 Not Given ONCE ONE Folic Acid 1 mg/ Thiamine HCl 1,000 mls @ 125 mls/hr 05/25/19 22:46 05/25/19 23:44 100 mg/ Multivitamins/Minerals IVPB 05/26/19 06:45 125 mls/hr 10 ml/ Sodium Chloride ONCE ONE Administration Lorazepam 2 mg 05/26/19 07:55 05/26/19 08:13 Ativan Injection - IVPUSH 05/26/19 07:56 2 mg ONCE ONE Administration Ondansetron HCl 4 mg 05/26/19 07:50 05/26/19 08:12 Zofran Injection IVPUSH 05/26/19 07:51 4 mg NOW ONE Administration Medical Decision Making - Medical Decision Making 05/26/19 11:04 signout from overnight team for etoh intox with passive SI/depression. Pt treated prophylactically for withdrawal with ativan and librium. sat quietly/cooperatively in ED on CS. Seen by psych and cleared for detox. Will transfer to [facility] for continued evaluation and management. Discharge - Discharge Information Problems reviewed: Yes Clinical Impression/Diagnosis: Alcohol intoxication Qualifiers: Complication of substance-induced condition: uncomplicated Qualified Code(s): F10.920 - Alcohol use, unspecified with intoxication, uncomplicated Condition: Stable Disposition: TRANSFER ACUTE CARE/OTHER HOSP - Follow up/Referral - Patient Discharge Instructions Patient Printed Discharge Instructions: DI for Alcohol Abuse Additional Instructions: You were seen in the ER for alcohol intoxication. it is strongly recommended that you receive care and further evaluation at [facility] which is a detox facility to address your alcohol use. Your care is not complete until you do so. Return to the Emergency room if you experience worsening symptoms. - Post Discharge Activity
--- NOTE | 2019-05-26 11:09 | CON.PSY ---
Psychiatry Consult Chief Complaint: I am an Alcoholic, I need detox.I am not going to kill myself. I have an appointment for Detox. [patient known to us, had chandana admitted here gor Detox. long history of Alcohol abuse and no Psych history. Symptoms: reports: Anxiety - Previous Psychiatric Treatment Outpatient: None Inpatient: None - Previous Substance Abuse Treatment Outpatient: More than 6 mos ago Inpatient: 2 or more prior admissions - Reason for Previous Treatment Reason for Previous Treatment: Alcohol Abuse - Allergies Allergies: Allergies Allergy/AdvReac Type Severity Reaction Status Date / Time No Known Allergies Allergy Verified 05/25/19 20:34 - Current Living Status Usual Living Arrangement: With Parent - Current Mental Status Evaluation Appearance: Disheveled Attitude: Guarded - Affect Affect: Constrictive Appropriateness: Appropriate to Content - Mood Mood: Irritable - Speech/Language Expressive: Coherent - Psychomotor Activity Psychomotor Activity: Slowed - Thought Process Thought Process: Intact - Thought Content Hallucinations: Absent Delusions: Absent - Self Perception Self Perception: No Impairment - Cognition Attention: Alert Orientation: Time Memory, Short Term: 3/3 Memory, Remote with Promptin/3 - Concentration Serial Sevens Intact: No Simple Calculations Intact: Yes - Abstraction Proverb Interpretation: Intact Judgement: Moderately Impaired - Insight Insight: Impaired - Impulse Control Impulse Control: Good Control - Suicidal Ideation Suicidal Ideation: No - Homicidal Ideation Homicidal Ideation: No Assessment/Plan 1) PATIENT IS NOT suicidal at this time. 2) Needs Alcohol Detoxification.
[2019-05-26 11:28] VITALS: BP 146/101; PULSE 110; TEMP 99.8
--- NOTE | 2019-05-26 11:29 | EKG ---
Test Reason : Blood Pressure : / mmHG Vent. Rate : 094 BPM Atrial Rate : 094 BPM P-R Int : 136 ms QRS Dur : 086 ms QT Int : 362 ms P-R-T Axes : 038 033 011 degrees QTc Int : 452 ms NORMAL SINUS RHYTHM NORMAL ECG WHEN COMPARED WITH ECG OF 26-APR-2019 00:46, NO SIGNIFICANT CHANGE WAS FOUND Confirmed by Иван Cerda MD ([id number]) on 05/26/2019 11:28:36 AM Referred By: Confirmed By:Иван Cerda MD
== END 2019-05-26 11:25 | disposition short-term general hospital (02) ==
LOC: JER 20:12
PROC: 3E033NZ Introduction of Analgesics, Hypnotics, Sedatives into Peripheral Vein, Percutaneous Approach (ICD-10-PCS; principal; 2019-05-25)
PROC: 3E033GC Introduction of Other Therapeutic Substance into Peripheral Vein, Percutaneous Approach (ICD-10-PCS; 2019-05-25)
PROC: 3E033GC Introduction of Other Therapeutic Substance into Peripheral Vein, Percutaneous Approach (ICD-10-PCS; 2019-05-25)
DX: F10.120 Alcohol abuse with intoxication, uncomplicated (principal); Y90.6 Blood alcohol level of 120-199 mg/100 ml; I10 Essential (primary) hypertension; K21.9 Gastro-esophageal reflux disease without esophagitis; F11.10 Opioid abuse, uncomplicated; F13.20 Sedative, hypnotic or anxiolytic dependence, uncomplicated; F14.20 Cocaine dependence, uncomplicated; F17.210 Nicotine dependence, cigarettes, uncomplicated
CPT/HCPCS: 36415; 80053; 80307; 83690; 85025; 85610; 85730; 93005; 93010; 96365; 96366; 96374; 96375; 99284-25; J7030

== ENCOUNTER 2020-01-09 21:38 | Inpatient (IN) | payer OTHER ==
[2020-01-09 22:37] VITALS: BMI 29.2
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
[2020-01-09] MEDS ORDERED: METHADONE HCL 10 MG TABLET (FOR DETOX USE ONLY) PO ONE (23:24)
[2020-01-09] MEDS ORDERED: MENTHOL/PHENOL 1 EACH UD MM PRN (23:24)
[2020-01-09] MEDS ORDERED: ONDANSETRON *ODT* 4 MG TABLET SL ONE (23:24)
[2020-01-09] MEDS ORDERED: cloNIDine HCL 0.1 MG TABLET PO PRN (23:24)
[2020-01-09] MEDS ORDERED: NALOXONE HCL 0.4 MG/ML VIAL IM PRN (23:24)
[2020-01-09] MEDS ORDERED: guaiFENesin 200 MG/10 ML 10 ML UNIT-DOSE CUPS PO PRN (23:24)
[2020-01-09] MEDS ORDERED: MAGNESIUM HYDROX 2400MG/30ML ORAL SUSPENSION 30 ML CUP PO PRN (23:24)
[2020-01-09] MEDS ORDERED: NICOTINE POLACRILEX 2 MG GUM BUC PRN (23:24)
[2020-01-09] MEDS ORDERED: BISMUTH SUBSALICYLATE 524 MG/30 ML UD PO PRN (23:24)
[2020-01-09] MEDS ORDERED: MAG HYDROX/AL HYDROX/SIMETH 30 ML UNIT-DOSE CUP PO PRN (23:24)
[2020-01-09] MEDS ORDERED: IBUPROFEN 400 MG TABLET (FP) PO PRN (23:24)
[2020-01-09] MEDS ORDERED: chlordiazePOXIDE HCL 25 MG CAPSULE PO PRN (23:24)
[2020-01-09] MEDS ORDERED: ACETAMINOPHEN 325 MG TABLET (FP) PO PRN (23:24)
[2020-01-09] MEDS ORDERED: P-EPHED 60MG/TRIPROLIDI 2.5MG TABLET PO PRN (23:24)
[2020-01-09] MEDS ORDERED: MAGNESIUM CITRATE 300 ML BOTTLE PO PRN (23:24)
[2020-01-10] MEDS: ACETAMINOPHEN 325 MG TABLET (FP) PO PRN ×2 (01:11→10:40)
[2020-01-10] MEDS: chlordiazePOXIDE HCL 25 MG CAPSULE PO SCH ×5 (01:14→22:51)
[2020-01-10] MEDS: hydrOXYzine PAMOATE 25 MG CAPSULE (FP) PO SCH ×5 (07:43→22:51)
[2020-01-10] MEDS ORDERED: METHADONE HCL 5 MG TABLET (FOR DETOX USE ONLY) ONE (09:02)
[2020-01-10] MEDS ORDERED: METHADONE HCL 10 MG TABLET (FOR DETOX USE ONLY) ONE (09:02)
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
[2020-01-10] MEDS ORDERED: METHADONE (DETOX) 20 MG, METHADONE (DETOX) 5 MG PO ONE (10:00)
[2020-01-10] MEDS: PRENATAL VITAMINS W/ FOLIC ACID TABLET (FP) PO SCH (10:38)
[2020-01-10] MEDS: NICOTINE 21 MG/24 HOURS TOPICAL PATCH TD SCH (10:40)
--- NOTE | 2020-01-10 10:58 | PN ---
[facility] CIWA - CIWA Score Nausea/Vomitin-Mild Nausea/No Vomiting Muscle Tremors: 2 Anxiety: 2 Agitation: 0-Normal Activity Paroxysmal Sweats: 2 Orientation: 0-Oriented Tacttile Disturbances: 1-Very Mild Itch/Numbness Auditory Disturbances: 0-None Visual Disturbances: 1-Very Mild Sensitivity Headache: 1-Very Mild CIWA-Ar Total Score: 10 S COWS - Scale Resting Pulse: 1= [place] 81-100 Sweatin= Chills/Flushing Restless Observation: 0= Sits Still Pupil Size: 1= Pupils >than Normal Bone or Joint Aches: 1= Mild Discomfort Runny Nose/ Eye Tearin= None GI Upset > 30mins: 2= Nausea/Diarrhea Tremor Observation of Outstretched Hands: 2= Slight Tremor Visible Yawning Observation: 0= None Anxiety or Irritability: 2=Irritable/Anxious Goose Flesh Skin: 0=Smooth Skin COWS Score: 10 S Progress Note (SOAP) Subjective: 39 years old male was admitted on 01/09/20 for alcohol and opiate withdrawal sx management treating with librum and methadone regimens "just shaking" able to hold cup to mouth speech clearly feels tired limited conversation with staff Objective: 01/10/20 10:57 Vital Signs - 24 hr 01/09/20 01/10/20 01/10/20 22:35 00:05 06:18 Temperature 97.8 F 97.7 F 97.6 F Pulse Rate 103 H 95 H 76 Respiratory 18 18 18 Rate Blood Pressure 107/72 121/80 115/68 O2 Sat by Pulse 97 96 Oximetry (%) 01/10/20 09:06 Temperature 98.2 F Pulse Rate 84 Respiratory 18 Rate Blood Pressure 121/77 O2 Sat by Pulse Oximetry (%) 01/10/20 10:57 lab pending Assessment: 01/10/20 10:57 alcohol and opiate withdrawal Plan: librium and methadone regiments
[2020-01-10 11:08] LABS: ALBUMIN 3.6 g/dl (3.4-5.0); BILIRUBIN,TOTAL 0.3 mg/dL (0.2-1); BLOOD UREA NITROGEN 13.8 mg/dL (7-18); CALCIUM 8.2 mg/dL (8.5-10.1); CREATININE 0.9 mg/dL (0.55-1.3); POTASSIUM 4.1 mmol/L (3.5-5.1); TOT PROT 7.4 g/dl (6.4-8.2)
[2020-01-10 11:39] LABS: HEMATOCRIT 41.4 % (35.4-49); HEMOGLOBIN 13.8 GM/dL (11.7-16.9); MCH 30.1 pg (25.7-33.7); MCHC 33.3 g/dl (32.0-35.9); MEAN CELL VOLUME 90.6 fl (80-96); MEAN PLT VOLUME 8.9 fl (7.5-11.1); PLATELET COUNT 237 K/MM3 (134-434); RBC 4.58 M/mm3 (4.00-5.60); RDW 12.6 % (11.9-15.9); WHITE BLOOD COUNT 11.4 K/mm3 (4.0-10.0)
[2020-01-10] MEDS ORDERED: SUVOREXANT 10 MG TABLET PO PRN (22:00)
[2020-01-10] MEDS: THIAMINE HCL 100 MG TABLET (FP) PO SCH (22:53)
[2020-01-10] MEDS: MELATONIN 5 MG TABLETS PO SCH (22:53)
[2020-01-11] MEDS: hydrOXYzine PAMOATE 25 MG CAPSULE (FP) PO SCH ×5 (05:42→22:32)
[2020-01-11] MEDS: chlordiazePOXIDE HCL 25 MG CAPSULE PO SCH ×4 (05:42→22:32)
[2020-01-11] MEDS ORDERED: METHADONE HCL 10 MG TABLET (FOR DETOX USE ONLY) PO ONE (10:00)
[2020-01-11] MEDS: PRENATAL VITAMINS W/ FOLIC ACID TABLET (FP) PO SCH (10:31)
[2020-01-11] MEDS: NICOTINE 21 MG/24 HOURS TOPICAL PATCH TD SCH (10:31)
[2020-01-11] MEDS: METHOCARBAMOL 500 MG TABLET PO PRN (10:32)
--- NOTE | 2020-01-11 12:52 | PN ---
[facility] CIWA - CIWA Score Nausea/Vomitin-Mild Nausea/No Vomiting Muscle Tremors: 3 Anxiety: 2 Agitation: 0-Normal Activity Paroxysmal Sweats: No Perspiration Orientation: 0-Oriented Tacttile Disturbances: 0-None Auditory Disturbances: 0-None Visual Disturbances: 1-Very Mild Sensitivity Headache: 1-Very Mild CIWA-Ar Total Score: 8 S COWS - Scale Resting Pulse: 0= [place] 80 or Below Sweatin= Chills/Flushing Restless Observation: 0= Sits Still Pupil Size: 1= Pupils >than Normal Bone or Joint Aches: 1= Mild Discomfort Runny Nose/ Eye Tearin= Nasal Congestion GI Upset > 30mins: 1= Stomach Cramp Tremor Observation of Outstretched Hands: 1= Tremor [place], Not Seen Yawning Observation: 1= 1-2x During Session Anxiety or Irritability: 1=Feels Anxious/Irritable Goose Flesh Skin: 0=Smooth Skin COWS Score: 8 [facility] Progress Note (SOAP) Subjective: 39 years old male was admitted on 01/09/20 for alcohol and opiate withdrawal sx management treating with librium and methadone detox regiments ambulating with wheelchair on the unit encourage mr gregory to discuss aftercare with staff that mr gregory wants to move out of state recommend mr gregory seeks community support meetings and groups Objective: 01/11/20 12:54 Vital Signs - 24 hr 01/10/20 01/10/20 01/11/20 16:37 20:34 06:48 Temperature 97.3 F L 97.3 F L 96.9 F L Pulse Rate 88 86 63 Respiratory 18 18 18 Rate Blood Pressure 127/84 125/81 125/79 O2 Sat by Pulse 97 100 Oximetry (%) 01/11/20 09:00 Temperature 97.3 F L Pulse Rate 73 Respiratory 18 Rate Blood Pressure 119/72 O2 Sat by Pulse Oximetry (%) Laboratory Tests 01/09/20 01/10/20 01/10/20 17:58 07:20 07:20 WBC RBC Hgb Hct MCV MCH MCHC RDW Plt Count MPV Sodium 139 Potassium 4.1 Chloride 105 Carbon Dioxide 25 Anion Gap 9 BUN 13.8 Creatinine 0.9 Est GFR (CKD-EPI)AfAm 124.26 Est GFR (CKD-EPI)NonAf 107.21 Random Glucose 77 Calcium 8.2 L Total Bilirubin 0.3 AST 17 ALT 29 Alkaline Phosphatase 131 H Total Protein 7.4 Albumin 3.6 Syphilis Serology Non-reactive COVID-19 (OSVALDO) Not detected 01/10/20 07:30 WBC 11.4 H RBC 4.58 Hgb 13.8 Hct 41.4 D MCV 90.6 MCH 30.1 MCHC 33.3 RDW 12.6 D Plt Count 237 MPV 8.9 D Sodium Potassium Chloride Carbon Dioxide Anion Gap BUN Creatinine Est GFR (CKD-EPI)AfAm Est GFR (CKD-EPI)NonAf Random Glucose Calcium Total Bilirubin AST ALT Alkaline Phosphatase Total Protein Albumin Syphilis Serology COVID-19 (OSVALDO) lab noted Assessment: 01/11/20 12:54 alcohol and opiate withdrawal Plan: librium and methadone regiment
[2020-01-11 21:07] LABS: EPI CELLS 3 /uL (0-25.1); HYALINE CASTS 0 /uL (0-3.1); URINE APPEARANCE CLOUDY; URINE BACTERIA 24 /uL (0-1359); URINE BILIRUBIN NEGATIVE (NEGATIVE); URINE COLOR YELLOW; URINE GLUCOSE (UA) NEGATIVE (NEGATIVE); URINE KETONE NEGATIVE (NEGATIVE); URINE LEUK ESTERASE TRACE (NEGATIVE); URINE NITRITE NEGATIVE (NEGATIVE); URINE PROTEIN NEGATIVE (NEGATIVE); URINE RBC 79 /uL (0-23.9); URINE UROBILINOGEN 0.2 mg/dL (0.2-1.0); URINE WBC 37 /uL (0-25.8)
[2020-01-11] MEDS: THIAMINE HCL 100 MG TABLET (FP) PO SCH (22:32)
[2020-01-11] MEDS: MELATONIN 5 MG TABLETS PO SCH (22:32)
[2020-01-11] MEDS: ACETAMINOPHEN 325 MG TABLET (FP) PO PRN (22:33)
[2020-01-12] MEDS ORDERED: chlordiazePOXIDE HCL 10 MG CAPSULE PO PRN
[2020-01-12] MEDS: hydrOXYzine PAMOATE 25 MG CAPSULE (FP) PO SCH ×5 (05:32→22:23)
[2020-01-12] MEDS: chlordiazePOXIDE HCL 10 MG CAPSULE PO SCH ×4 (05:32→22:23)
[2020-01-12] MEDS ORDERED: METHADONE HCL 5 MG TABLET (FOR DETOX USE ONLY) ONE (09:59)
[2020-01-12] MEDS ORDERED: METHADONE HCL 10 MG TABLET (FOR DETOX USE ONLY) ONE (09:59)
[2020-01-12] MEDS ORDERED: METHADONE (DETOX) 10 MG, METHADONE (DETOX) 5 MG PO ONE (10:00)
[2020-01-12] MEDS: METHOCARBAMOL 500 MG TABLET PO PRN (10:15)
[2020-01-12] MEDS: NICOTINE 21 MG/24 HOURS TOPICAL PATCH TD SCH (10:15)
[2020-01-12] MEDS: PRENATAL VITAMINS W/ FOLIC ACID TABLET (FP) PO SCH (10:15)
--- NOTE | 2020-01-12 12:31 | PN ---
S CIWA - CIWA Score Nausea/Vomitin-Mild Nausea/No Vomiting Muscle Tremors: 1-None Visible, but [place] Anxiety: 1-Mildly Anxious Agitation: 0-Normal Activity Paroxysmal Sweats: No Perspiration Orientation: 0-Oriented Tacttile Disturbances: 1-Very Mild Itch/Numbness Auditory Disturbances: 0-None Visual Disturbances: 1-Very Mild Sensitivity Headache: 1-Very Mild CIWA-Ar Total Score: 6 [facility] COWS - Scale Resting Pulse: 0= [place] 80 or Below Sweatin= Chills/Flushing Restless Observation: 0= Sits Still Pupil Size: 1= Pupils >than Normal Bone or Joint Aches: 1= Mild Discomfort Runny Nose/ Eye Tearin= None GI Upset > 30mins: 1= Stomach Cramp Tremor Observation of Outstretched Hands: 1= Tremor [place], Not Seen Yawning Observation: 0= None Anxiety or Irritability: 1=Feels Anxious/Irritable Goose Flesh Skin: 0=Smooth Skin COWS Score: 6 S Progress Note (SOAP) Subjective: 39 years old male was admitted on 01/09/20 for alcohol and opiate withdrawal sx management treating with librium and methadone detox regiment mr gregory states that he feels better no need for wheelchair discontinue wheelchair for ambulation Objective: 01/12/20 12:46 Vital Signs - 24 hr 01/11/20 01/11/20 01/12/20 16:40 20:51 05:25 Temperature 97.3 F L 97.7 F 96.6 F L Pulse Rate 83 73 52 L Respiratory 18 16 16 Rate Blood Pressure 115/78 126/78 99/54 L O2 Sat by Pulse 95 95 Oximetry (%) 01/12/20 08:57 Temperature 97.3 F L Pulse Rate 66 Respiratory 18 Rate Blood Pressure 129/81 O2 Sat by Pulse Oximetry (%) Laboratory Tests 01/09/20 01/10/20 01/10/20 17:58 07:20 07:20 WBC RBC Hgb Hct MCV MCH MCHC RDW Plt Count MPV Sodium 139 Potassium 4.1 Chloride 105 Carbon Dioxide 25 Anion Gap 9 BUN 13.8 Creatinine 0.9 Est GFR (CKD-EPI)AfAm 124.26 Est GFR (CKD-EPI)NonAf 107.21 Random Glucose 77 Calcium 8.2 L Total Bilirubin 0.3 AST 17 ALT 29 Alkaline Phosphatase 131 H Total Protein 7.4 Albumin 3.6 Urine Color Urine Appearance Urine pH Ur Specific [place] Urine Protein Urine Glucose (UA) Urine Ketones Urine Blood Urine Nitrite Urine Bilirubin Urine Urobilinogen Ur Leukocyte Esterase Urine WBC (Auto) Urine RBC (Auto) Urine Casts (Auto) U Epithel Cells (Auto) Urine Bacteria (Auto) Syphilis Serology Non-reactive COVID-19 ([facility]DO) Not detected 01/10/20 01/11/20 07:30 18:16 WBC 11.4 H RBC 4.58 Hgb 13.8 Hct 41.4 D MCV 90.6 MCH 30.1 MCHC 33.3 RDW 12.6 D Plt Count 237 MPV 8.9 D Sodium Potassium Chloride Carbon Dioxide Anion Gap BUN Creatinine Est GFR (CKD-EPI)AfAm Est GFR (CKD-EPI)NonAf Random Glucose Calcium Total Bilirubin AST ALT Alkaline Phosphatase Total Protein Albumin Urine Color Yellow Urine Appearance Cloudy Urine pH 7.0 Ur Specific [place] 1.011 Urine Protein Negative Urine Glucose (UA) Negative Urine Ketones Negative Urine Blood 2+ H Urine Nitrite Negative Urine Bilirubin Negative Urine Urobilinogen 0.2 Ur Leukocyte Esterase Trace Urine WBC (Auto) 37 Urine RBC (Auto) 79 Urine Casts (Auto) 0 U Epithel Cells (Auto) 3 Urine Bacteria (Auto) 24 Syphilis Serology COVID-19 ([facility]) lab noted Assessment: 01/12/20 12:47 alcohol and opiate withdrawal Plan: librium and methadone regiments
[2020-01-12] MEDS: ACETAMINOPHEN 325 MG TABLET (FP) PO PRN (22:23)
[2020-01-12] MEDS: THIAMINE HCL 100 MG TABLET (FP) PO SCH (22:23)
[2020-01-12] MEDS: MELATONIN 5 MG TABLETS PO SCH (22:26)
[2020-01-13] MEDS: hydrOXYzine PAMOATE 25 MG CAPSULE (FP) PO SCH ×5 (05:40→22:15)
[2020-01-13] MEDS: chlordiazePOXIDE HCL 10 MG CAPSULE PO SCH ×2 (05:40→17:39)
[2020-01-13] MEDS ORDERED: METHADONE HCL 10 MG TABLET (FOR DETOX USE ONLY) PO ONE (10:00)
[2020-01-13] MEDS: NICOTINE 21 MG/24 HOURS TOPICAL PATCH TD SCH (10:12)
[2020-01-13] MEDS: PRENATAL VITAMINS W/ FOLIC ACID TABLET (FP) PO SCH (10:12)
--- NOTE | 2020-01-13 14:54 | PN ---
[facility] CIWA - CIWA Score Nausea/Vomitin-No Nausea/No Vomiting Muscle Tremors: 1-None Visible, but [place] Anxiety: 1-Mildly Anxious Agitation: 0-Normal Activity Paroxysmal Sweats: No Perspiration Orientation: 0-Oriented Tacttile Disturbances: 1-Very Mild Itch/Numbness Auditory Disturbances: 0-None Visual Disturbances: 1-Very Mild Sensitivity Headache: 0-None Present CIWA-Ar Total Score: 4 S COWS - Scale Resting Pulse: 0= [place] 80 or Below Sweatin= No chills or Flushing Restless Observation: 0= Sits Still Pupil Size: 0= Normal to Room Light Bone or Joint Aches: 1= Mild Discomfort Runny Nose/ Eye Tearin= None GI Upset > 30mins: 1= Stomach Cramp Tremor Observation of Outstretched Hands: 1= Tremor [place], Not Seen Yawning Observation: 0= None Anxiety or Irritability: 1=Feels Anxious/Irritable Goose Flesh Skin: 0=Smooth Skin COWS Score: 4 S Progress Note (SOAP) Subjective: 39 years old male was admitted on 01/09/20 for alcohol and opiate withdrawal sx management treating with librium and methadone detox regiment feels better today ambulating with cane slow steady gaits encourage mr gregory to verbalize necessary step to remain sober Objective: 01/13/20 14:56 Vital Signs - 24 hr 01/12/20 01/12/20 01/13/20 16:39 21:03 06:31 Temperature 97.3 F L 97.1 F L 97.3 F L Pulse Rate 68 95 H 82 Respiratory 18 20 18 Rate Blood Pressure 122/73 133/79 117/76 O2 Sat by Pulse 95 100 Oximetry (%) 01/13/20 08:59 Temperature 97.5 F L Pulse Rate 75 Respiratory 18 Rate Blood Pressure 116/76 O2 Sat by Pulse Oximetry (%) Laboratory Tests 01/09/20 01/10/20 01/10/20 17:58 07:20 07:20 WBC RBC Hgb Hct MCV MCH MCHC RDW Plt Count MPV Sodium 139 Potassium 4.1 Chloride 105 Carbon Dioxide 25 Anion Gap 9 BUN 13.8 Creatinine 0.9 Est GFR (CKD-EPI)AfAm 124.26 Est GFR (CKD-EPI)NonAf 107.21 Random Glucose 77 Calcium 8.2 L Total Bilirubin 0.3 AST 17 ALT 29 Alkaline Phosphatase 131 H Total Protein 7.4 Albumin 3.6 Urine Color Urine Appearance Urine pH Ur Specific [place] Urine Protein Urine Glucose (UA) Urine Ketones Urine Blood Urine Nitrite Urine Bilirubin Urine Urobilinogen Ur Leukocyte Esterase Urine WBC (Auto) Urine RBC (Auto) Urine Casts (Auto) U Epithel Cells (Auto) Urine Bacteria (Auto) Syphilis Serology Non-reactive COVID-19 ([facility]) Not detected 01/10/20 01/11/20 07:30 18:16 WBC 11.4 H RBC 4.58 Hgb 13.8 Hct 41.4 D MCV 90.6 MCH 30.1 MCHC 33.3 RDW 12.6 D Plt Count 237 MPV 8.9 D Sodium Potassium Chloride Carbon Dioxide Anion Gap BUN Creatinine Est GFR (CKD-EPI)AfAm Est GFR (CKD-EPI)NonAf Random Glucose Calcium Total Bilirubin AST ALT Alkaline Phosphatase Total Protein Albumin Urine Color Yellow Urine Appearance Cloudy Urine pH 7.0 Ur Specific [place] 1.011 Urine Protein Negative Urine Glucose (UA) Negative Urine Ketones Negative Urine Blood 2+ H Urine Nitrite Negative Urine Bilirubin Negative Urine Urobilinogen 0.2 Ur Leukocyte Esterase Trace Urine WBC (Auto) 37 Urine RBC (Auto) 79 Urine Casts (Auto) 0 U Epithel Cells (Auto) 3 Urine Bacteria (Auto) 24 Syphilis Serology COVID-19 ([facility]) lab noted Assessment: 01/13/20 14:57 alcohol and opiate withdrawal Plan: ativan regiment
[2020-01-13] MEDS: THIAMINE HCL 100 MG TABLET (FP) PO SCH (22:15)
[2020-01-13] MEDS: ACETAMINOPHEN 325 MG TABLET (FP) PO PRN (22:15)
[2020-01-13] MEDS: MELATONIN 5 MG TABLETS PO SCH (22:15)
[2020-01-14] MEDS ORDERED: chlordiazePOXIDE HCL 10 MG CAPSULE PO ONE (05:00)
[2020-01-14] MEDS: hydrOXYzine PAMOATE 25 MG CAPSULE (FP) PO SCH (05:41)
[2020-01-14] MEDS ORDERED: METHADONE HCL 5 MG TABLET (FOR DETOX USE ONLY) PO ONE (06:00)
[2020-01-14 06:27] VITALS: BP 132/81; PULSE 68; TEMP 97.2
--- NOTE | 2020-01-14 09:50 | DS ---
[facility] Discharge Summary Admission Date: 01/09/20 Discharge Date: 01/14/20 - History Present History: Alcohol Dependence, Opioid Dependence Additional Comments: alert,oriented x 3 ambulation on the unit lung clear on auscultation bilaterally abdomen soft,no distension,no pain,no tenderness no swelling of the extremities stable for discharge no withdrawal symptom follow up with after care program as arrangement new focus declined rehab follow up with medical provider for medical issue left the unit in stable condition total time discharge spending 35 minutes Pertinent Past History: hypertension alcoholic hepatitis deformity of right index - Physical Exam Results Vital Signs: Vital Signs Temperature 97.2 F L 01/14/20 06:27 Pulse Rate 68 01/14/20 06:27 Respiratory Rate 18 01/14/20 06:27 Blood Pressure 132/81 01/14/20 06:27 O2 Sat by Pulse Oximetry (%) 97 01/14/20 06:27 Pertinent Admission Physical Exam Findings: withdrawal signs and symptom Laboratory Last Values WBC 11.4 K/mm3 (4.0-10.0) H 01/10/20 07:30 RBC 4.58 M/mm3 (4.00-5.60) 01/10/20 07:30 Hgb 13.8 GM/dL (11.7-16.9) 01/10/20 07:30 Hct 41.4 % (35.4-49) D 01/10/20 07:30 MCV 90.6 fl (80-96) 01/10/20 07:30 MCH 30.1 pg (25.7-33.7) 01/10/20 07:30 MCHC 33.3 g/dl (32.0-35.9) 01/10/20 07:30 RDW 12.6 % (11.9-15.9) D 01/10/20 07:30 Plt Count 237 K/MM3 (134-434) 01/10/20 07:30 MPV 8.9 fl (7.5-11.1) D 01/10/20 07:30 Sodium 139 mmol/L (136-145) 01/10/20 07:20 Potassium 4.1 mmol/L (3.5-5.1) 01/10/20 07:20 Chloride 105 mmol/L (98-107) 01/10/20 07:20 Carbon Dioxide 25 mmol/L (21-32) 01/10/20 07:20 Anion Gap 9 MMOL/L (8-16) 01/10/20 07:20 BUN 13.8 mg/dL (7-18) 01/10/20 07:20 Creatinine 0.9 mg/dL (0.55-1.3) 01/10/20 07:20 Est GFR (CKD-EPI)AfAm 124.26 01/10/20 07:20 Est GFR (CKD-EPI)NonAf 107.21 01/10/20 07:20 Random Glucose 77 mg/dL (74-106) 01/10/20 07:20 Calcium 8.2 mg/dL (8.5-10.1) L 01/10/20 07:20 Total Bilirubin 0.3 mg/dL (0.2-1) 01/10/20 07:20 AST 17 U/L (15-37) 01/10/20 07:20 ALT 29 U/L (13-61) 01/10/20 07:20 Alkaline Phosphatase 131 U/L (45-117) H 01/10/20 07:20 Total Protein 7.4 g/dl (6.4-8.2) 01/10/20 07:20 Albumin 3.6 g/dl (3.4-5.0) 01/10/20 07:20 Urine Color Yellow 01/11/20 18:16 Urine Appearance Cloudy 01/11/20 18:16 Urine pH 7.0 (5.0-8.0) 01/11/20 18:16 Ur Specific [place] 1.011 (1.010-1.035) 01/11/20 18:16 Urine Protein Negative (NEGATIVE) 01/11/20 18:16 Urine Glucose (UA) Negative (NEGATIVE) 01/11/20 18:16 Urine Ketones Negative (NEGATIVE) 01/11/20 18:16 Urine Blood 2+ (NEGATIVE) H 01/11/20 18:16 Urine Nitrite Negative (NEGATIVE) 01/11/20 18:16 Urine Bilirubin Negative (NEGATIVE) 01/11/20 18:16 Urine Urobilinogen 0.2 mg/dL (0.2-1.0) 01/11/20 18:16 Ur Leukocyte Esterase Trace (NEGATIVE) 01/11/20 18:16 Urine WBC (Auto) 37 /uL (0-25.8) 01/11/20 18:16 Urine RBC (Auto) 79 /uL (0-23.9) 01/11/20 18:16 Urine Casts (Auto) 0 /uL (0-3.1) 01/11/20 18:16 U Epithel Cells (Auto) 3 /uL (0-25.1) 01/11/20 18:16 Urine Bacteria (Auto) 24 /uL (0-1359) 01/11/20 18:16 Syphilis Serology Non-reactive (NONREACTIVE) 01/10/20 07:20 COVID-19 ([facility]) Not detected (Not Detected) 01/09/20 17:58 Vital Signs Temperature 97.2 F L 01/14/20 06:27 Pulse Rate 68 01/14/20 06:27 Respiratory Rate 18 01/14/20 06:27 Blood Pressure 132/81 01/14/20 06:27 O2 Sat by Pulse Oximetry (%) 97 01/14/20 06:27 - Treatment Hospital Course: Detox Protocol Followed, Detoxed Safely, Responded well, Discharged Condition Good Patient has Accepted a Rehab Referral to: declined - Medication Discharge Medications: Ambulatory Orders Folic Acid - 1 mg PO DAILY #30 tablet 02/05/19 Thiamine HCl [Vitamin B1 Injection -] 200 mg PO DAILY #30 vial 02/05/19 Docusate Sodium [Stool Softener] 100 mg PO DAILY #30 capsule 02/06/19 Sennosides [Senna -] 1 tab PO DAILY #30 tablet 02/06/19 Rifaximin [Xifaxan -] 550 mg PO BID #60 tablet 04/07/19 Multivitamins [Multivit ([facility] Formulary)] 1 tab PO DAILY tab 04/27/19 Amlodipine Besylate [Norvasc -] 10 mg PO DAILY #14 tablet 05/18/19 Nicotine Polacrilex [Nicotine Gum] 4 mg BC Q2H #1 box 05/18/19 Pantoprazole Sodium [Protonix -] 40 mg PO DAILY #14 tablet.ec 05/18/19 Naltrexone Microspheres [Vivitrol] 380 mg IM MONTHLY 30 Days #1 disp.syrin 05/22/19 - Diagnosis (1) Opioid dependence with withdrawal Status: Acute (2) Alcohol dependence with withdrawal, uncomplicated Status: Acute (3) Alcoholic hepatitis Status: Chronic Qualifiers: Ascites presence: without ascites Qualified Code(s): K70.10 - Alcoholic hepatitis without ascites (4) History of positive PPD Status: Resolved - AMA Did Patient Leave Against Medical Advice: No
--- NOTE | 2020-01-14 09:50 | PN ---
[facility] - CIWA Score Nausea/Vomitin-No Nausea/No Vomiting Muscle Tremors: None Anxiety: 1-Mildly Anxious Agitation: 0-Normal Activity Paroxysmal Sweats: No Perspiration Orientation: 0-Oriented Tacttile Disturbances: 0-None Auditory Disturbances: 0-None Visual Disturbances: 0-None Headache: 0-None Present CIWA-Ar Total Score: 1 S Progress Note (SOAP) Subjective: alert,no complaint Objective: 01/14/20 16:06 Vital Signs Temperature 97.2 F L 01/14/20 06:27 Pulse Rate 68 01/14/20 06:27 Respiratory Rate 18 01/14/20 06:27 Blood Pressure 132/81 01/14/20 06:27 O2 Sat by Pulse Oximetry (%) 97 01/14/20 06:27 Assessment: 01/14/20 16:07 detox completed,no withdrawal symptom Plan: stable for discharge today,declined rehab,follow up with after care program as arrangement
--- NOTE | 2020-01-14 12:41 | EKG ---
Test Reason : Blood Pressure : / mmHG Vent. Rate : 087 BPM Atrial Rate : 087 BPM P-R Int : 118 ms QRS Dur : 084 ms QT Int : 368 ms P-R-T Axes : 050 066 041 degrees QTc Int : 442 ms NORMAL SINUS RHYTHM NONSPECIFIC ST ABNORMALITY ABNORMAL ECG WHEN COMPARED WITH ECG OF 25-MAY-2019 22:23, ST ELEVATION NOW PRESENT IN INFERIOR LEADS NONSPECIFIC T WAVE ABNORMALITY NO LONGER EVIDENT IN ANTERIOR LEADS Confirmed by CASSANDRA BECKER MD ([id number]) on 01/14/2020 12:40:33 PM Referred By: Confirmed By:CASSANDRA BECKER MD
== END 2020-01-14 09:19 | disposition home or self-care (01) | DRG 773 ==
LOC: YASAS 21:38 → Y3N 23:15
PROVIDERS: ADMIT Allergy & Immunology; ATTEND Allergy & Immunology
PROC: HZ2ZZZZ Detoxification Services for Substance Abuse Treatment (ICD-10-PCS; principal; 2020-01-09)
DX: F10.230 Alcohol dependence with withdrawal, uncomplicated (principal); F11.23 Opioid dependence with withdrawal; F17.210 Nicotine dependence, cigarettes, uncomplicated; F19.282 Other psychoactive substance dependence with psychoactive substance-induced sleep disorder; F19.24 Other psychoactive substance dependence with psychoactive substance-induced mood disorder; F41.9 Anxiety disorder, unspecified; F32.9 Major depressive disorder, single episode, unspecified; I10 Essential (primary) hypertension; K70.10 Alcoholic hepatitis without ascites; K21.9 Gastro-esophageal reflux disease without esophagitis; M24.541 Contracture, right hand; Z91.81 History of falling; R76.11 Nonspecific reaction to tuberculin skin test without active tuberculosis; Z56.0 Unemployment, unspecified; S11.91XD Laceration without foreign body of unspecified part of neck, subsequent encounter; X99.8XXD Assault by other sharp object, subsequent encounter
CPT/HCPCS: 36415; 80053; 81003; 85027; 86780; 93005; 93010; U0003

== ENCOUNTER 2020-03-05 10:50 | Inpatient (IN) | payer OTHER ==
[2020-03-05] MEDS ORDERED: MASKS NR ONE (11:51)
[2020-03-05] MEDS ORDERED: MAGNESIUM CITRATE 300 ML BOTTLE PO PRN (14:18)
[2020-03-05] MEDS ORDERED: MAGNESIUM HYDROX 2400MG/30ML ORAL SUSPENSION 30 ML CUP PO PRN (14:18)
[2020-03-05] MEDS ORDERED: P-EPHED 60MG/TRIPROLIDI 2.5MG TABLET PO PRN (14:18)
[2020-03-05] MEDS ORDERED: IBUPROFEN 400 MG TABLET (FP) PO PRN (14:18)
[2020-03-05] MEDS ORDERED: MAG HYDROX/AL HYDROX/SIMETH 30 ML UNIT-DOSE CUP PO PRN (14:18)
[2020-03-05] MEDS ORDERED: MENTHOL/PHENOL 1 EACH UD MM PRN (14:18)
[2020-03-05] MEDS ORDERED: NICOTINE POLACRILEX 2 MG GUM BUC PRN (14:18)
[2020-03-05] MEDS ORDERED: hydrOXYzine PAMOATE 25 MG CAPSULE (FP) PO PRN (14:18)
[2020-03-05] MEDS ORDERED: LOPERAMIDE HCL 2 MG CAPSULE PO PRN (14:18)
[2020-03-05] MEDS ORDERED: guaiFENesin 200 MG/10 ML 10 ML UNIT-DOSE CUPS PO PRN (14:18)
[2020-03-05] MEDS: MELATONIN 5 MG TABLETS PO SCH (21:19)
[2020-03-05] MEDS: THIAMINE HCL 100 MG TABLET (FP) PO SCH (21:19)
[2020-03-06] MEDS ORDERED: METHADONE HCL 40 MG DISPERSABLE TABLET PO SCH (06:00)
[2020-03-06] MEDS ORDERED: METHADONE HCL 10 MG TABLET ONE (06:29)
[2020-03-06] MEDS ORDERED: METHADONE HCL 40 MG DISPERSABLE TABLET ONE (06:29)
[2020-03-06] MEDS: METHADONE 40 MG, METHADONE 20 MG PO SCH (06:30)
[2020-03-06] MEDS: PRENATAL VITAMINS W/ FOLIC ACID TABLET (FP) PO SCH (09:38)
[2020-03-06] MEDS: amLODIPine BESYLATE 10 MG TABLET (FP) PO SCH (09:38)
[2020-03-06] MEDS: NICOTINE 21 MG/24 HOURS TOPICAL PATCH TD SCH (09:38)
[2020-03-06] MEDS: MELATONIN 5 MG TABLETS PO SCH (21:15)
[2020-03-06] MEDS: THIAMINE HCL 100 MG TABLET (FP) PO SCH (21:15)
[2020-03-07] MEDS ORDERED: METHADONE HCL 40 MG DISPERSABLE TABLET ONE (04:45)
[2020-03-07] MEDS ORDERED: METHADONE HCL 10 MG TABLET ONE (04:45)
[2020-03-07] MEDS: METHADONE 40 MG, METHADONE 20 MG PO SCH (06:10)
[2020-03-07] MEDS: PRENATAL VITAMINS W/ FOLIC ACID TABLET (FP) PO SCH (09:50)
[2020-03-07] MEDS: amLODIPine BESYLATE 10 MG TABLET (FP) PO SCH (09:50)
[2020-03-07] MEDS: NICOTINE 21 MG/24 HOURS TOPICAL PATCH TD SCH (09:51)
[2020-03-07] MEDS: MELATONIN 5 MG TABLETS PO SCH (21:28)
[2020-03-07] MEDS: THIAMINE HCL 100 MG TABLET (FP) PO SCH (21:28)
[2020-03-08] MEDS ORDERED: METHADONE HCL 40 MG DISPERSABLE TABLET ONE (04:22)
[2020-03-08] MEDS ORDERED: METHADONE HCL 10 MG TABLET ONE (04:22)
[2020-03-08] MEDS: METHADONE 40 MG, METHADONE 20 MG PO SCH (06:20)
[2020-03-08] MEDS: PRENATAL VITAMINS W/ FOLIC ACID TABLET (FP) PO SCH (10:11)
[2020-03-08] MEDS: amLODIPine BESYLATE 10 MG TABLET (FP) PO SCH (10:11)
[2020-03-08] MEDS: NICOTINE 21 MG/24 HOURS TOPICAL PATCH TD SCH (10:12)
[2020-03-08] MEDS: THIAMINE HCL 100 MG TABLET (FP) PO SCH (21:22)
[2020-03-08] MEDS: MELATONIN 5 MG TABLETS PO SCH (21:23)
[2020-03-09] MEDS ORDERED: METHADONE HCL 10 MG TABLET ONE (05:08)
[2020-03-09] MEDS ORDERED: METHADONE HCL 40 MG DISPERSABLE TABLET ONE (05:08)
[2020-03-09] MEDS: METHADONE 40 MG, METHADONE 20 MG PO SCH (06:10)
[2020-03-09] MEDS: PRENATAL VITAMINS W/ FOLIC ACID TABLET (FP) PO SCH (09:35)
[2020-03-09] MEDS: amLODIPine BESYLATE 10 MG TABLET (FP) PO SCH (09:35)
[2020-03-09] MEDS: NICOTINE 21 MG/24 HOURS TOPICAL PATCH TD SCH (09:36)
[2020-03-09] MEDS: THIAMINE HCL 100 MG TABLET (FP) PO SCH (21:31)
[2020-03-09] MEDS: MELATONIN 5 MG TABLETS PO SCH (21:31)
[2020-03-10] MEDS ORDERED: METHADONE HCL 10 MG TABLET ONE (05:53)
[2020-03-10] MEDS ORDERED: METHADONE HCL 40 MG DISPERSABLE TABLET ONE (05:53)
[2020-03-10] MEDS: METHADONE 40 MG, METHADONE 20 MG PO SCH (06:26)
[2020-03-10] MEDS: PRENATAL VITAMINS W/ FOLIC ACID TABLET (FP) PO SCH (09:36)
[2020-03-10] MEDS: NICOTINE 21 MG/24 HOURS TOPICAL PATCH TD SCH (09:36)
[2020-03-10] MEDS: amLODIPine BESYLATE 10 MG TABLET (FP) PO SCH (09:36)
[2020-03-10] MEDS: THIAMINE HCL 100 MG TABLET (FP) PO SCH (21:19)
[2020-03-10] MEDS: MELATONIN 5 MG TABLETS PO SCH (21:19)
[2020-03-11] MEDS ORDERED: METHADONE HCL 40 MG DISPERSABLE TABLET ONE (05:39)
[2020-03-11] MEDS ORDERED: METHADONE HCL 10 MG TABLET ONE (05:39)
[2020-03-11] MEDS: METHADONE 40 MG, METHADONE 20 MG PO SCH (06:23)
[2020-03-11] MEDS: PRENATAL VITAMINS W/ FOLIC ACID TABLET (FP) PO SCH (09:36)
[2020-03-11] MEDS: amLODIPine BESYLATE 10 MG TABLET (FP) PO SCH (09:36)
[2020-03-11] MEDS: NICOTINE 21 MG/24 HOURS TOPICAL PATCH TD SCH (09:36)
[2020-03-11] MEDS: MELATONIN 5 MG TABLETS PO SCH (21:24)
[2020-03-11] MEDS: THIAMINE HCL 100 MG TABLET (FP) PO SCH (21:24)
[2020-03-12] MEDS ORDERED: METHADONE HCL 40 MG DISPERSABLE TABLET ONE (05:35)
[2020-03-12] MEDS ORDERED: METHADONE HCL 10 MG TABLET ONE (05:36)
[2020-03-12] MEDS ORDERED: METHADONE HCL 10 MG TABLET PO SCH (06:00)
[2020-03-12] MEDS: METHADONE 40 MG, METHADONE 20 MG PO SCH (06:14)
[2020-03-12] MEDS: PRENATAL VITAMINS W/ FOLIC ACID TABLET (FP) PO SCH (09:31)
[2020-03-12] MEDS: amLODIPine BESYLATE 10 MG TABLET (FP) PO SCH (09:31)
[2020-03-12] MEDS: NICOTINE 21 MG/24 HOURS TOPICAL PATCH TD SCH (09:32)
[2020-03-12] MEDS: MELATONIN 5 MG TABLETS PO SCH (21:29)
[2020-03-12] MEDS: THIAMINE HCL 100 MG TABLET (FP) PO SCH (21:29)
[2020-03-13] MEDS ORDERED: METHADONE HCL 10 MG TABLET ONE (05:41)
[2020-03-13] MEDS ORDERED: METHADONE HCL 40 MG DISPERSABLE TABLET ONE (05:41)
[2020-03-13] MEDS: METHADONE 40 MG, METHADONE 20 MG PO SCH (06:16)
[2020-03-13] MEDS: PRENATAL VITAMINS W/ FOLIC ACID TABLET (FP) PO SCH (09:26)
[2020-03-13] MEDS: amLODIPine BESYLATE 10 MG TABLET (FP) PO SCH (09:26)
[2020-03-13] MEDS: NICOTINE 21 MG/24 HOURS TOPICAL PATCH TD SCH (09:27)
[2020-03-13] MEDS: THIAMINE HCL 100 MG TABLET (FP) PO SCH (21:38)
[2020-03-13] MEDS: MELATONIN 5 MG TABLETS PO SCH (21:38)
[2020-03-14] MEDS ORDERED: METHADONE HCL 40 MG DISPERSABLE TABLET ONE (03:10)
[2020-03-14] MEDS ORDERED: METHADONE HCL 10 MG TABLET ONE (03:10)
[2020-03-14] MEDS: METHADONE 40 MG, METHADONE 20 MG PO SCH (06:14)
[2020-03-14] MEDS: amLODIPine BESYLATE 10 MG TABLET (FP) PO SCH (09:32)
[2020-03-14] MEDS: NICOTINE 21 MG/24 HOURS TOPICAL PATCH TD SCH (09:33)
[2020-03-14] MEDS: PRENATAL VITAMINS W/ FOLIC ACID TABLET (FP) PO SCH (09:33)
[2020-03-14] MEDS: MELATONIN 5 MG TABLETS PO SCH (21:26)
[2020-03-14] MEDS: THIAMINE HCL 100 MG TABLET (FP) PO SCH (21:26)
[2020-03-15] MEDS ORDERED: METHADONE HCL 40 MG DISPERSABLE TABLET ONE (05:33)
[2020-03-15] MEDS ORDERED: METHADONE HCL 10 MG TABLET ONE (05:33)
[2020-03-15] MEDS: METHADONE 40 MG, METHADONE 20 MG PO SCH (06:16)
[2020-03-15] MEDS: PRENATAL VITAMINS W/ FOLIC ACID TABLET (FP) PO SCH (09:39)
[2020-03-15] MEDS: NICOTINE 21 MG/24 HOURS TOPICAL PATCH TD SCH (09:39)
[2020-03-15] MEDS: amLODIPine BESYLATE 10 MG TABLET (FP) PO SCH (09:39)
[2020-03-15] MEDS: MELATONIN 5 MG TABLETS PO SCH (21:19)
[2020-03-15] MEDS: THIAMINE HCL 100 MG TABLET (FP) PO SCH (21:19)
[2020-03-16] MEDS ORDERED: METHADONE HCL 10 MG TABLET ONE (05:34)
[2020-03-16] MEDS ORDERED: METHADONE HCL 40 MG DISPERSABLE TABLET ONE (05:34)
[2020-03-16] MEDS: METHADONE 40 MG, METHADONE 20 MG PO SCH (06:04)
[2020-03-16] MEDS: PRENATAL VITAMINS W/ FOLIC ACID TABLET (FP) PO SCH (09:52)
[2020-03-16] MEDS: amLODIPine BESYLATE 10 MG TABLET (FP) PO SCH (09:52)
[2020-03-16] MEDS: NICOTINE 21 MG/24 HOURS TOPICAL PATCH TD SCH (09:53)
[2020-03-16] MEDS: THIAMINE HCL 100 MG TABLET (FP) PO SCH (21:21)
[2020-03-16] MEDS: MELATONIN 5 MG TABLETS PO SCH (21:21)
[2020-03-17] MEDS ORDERED: METHADONE HCL 40 MG DISPERSABLE TABLET ONE (05:34)
[2020-03-17] MEDS ORDERED: METHADONE HCL 10 MG TABLET ONE (05:34)
[2020-03-17] MEDS: METHADONE 40 MG, METHADONE 20 MG PO SCH (05:55)
[2020-03-17] MEDS: NICOTINE 21 MG/24 HOURS TOPICAL PATCH TD SCH (09:42)
[2020-03-17] MEDS: PRENATAL VITAMINS W/ FOLIC ACID TABLET (FP) PO SCH (09:42)
[2020-03-17] MEDS: amLODIPine BESYLATE 10 MG TABLET (FP) PO SCH (09:42)
[2020-03-17] MEDS: ACETAMINOPHEN 325 MG TABLET (FP) PO PRN (18:14)
[2020-03-17] MEDS: THIAMINE HCL 100 MG TABLET (FP) PO SCH (21:35)
[2020-03-17] MEDS: MELATONIN 5 MG TABLETS PO SCH (21:35)
[2020-03-18] MEDS ORDERED: METHADONE HCL 10 MG TABLET ONE (05:58)
[2020-03-18] MEDS ORDERED: METHADONE HCL 40 MG DISPERSABLE TABLET ONE (05:58)
[2020-03-18] MEDS ORDERED: METHADONE 40 MG, METHADONE 20 MG PO SCH (06:00)
[2020-03-18 06:54] VITALS: TEMP 97.3
[2020-03-18] MEDS: ACETAMINOPHEN 325 MG TABLET (FP) PO PRN (08:20)
[2020-03-18 09:12] VITALS: BP 127/86; PULSE 101
[2020-03-18] MEDS ORDERED: PT OWN MED DRAWER 7, Y5N ONE (09:36)
[2020-03-18] MEDS: amLODIPine BESYLATE 10 MG TABLET (FP) PO SCH (09:39)
[2020-03-18] MEDS: PRENATAL VITAMINS W/ FOLIC ACID TABLET (FP) PO SCH (09:39)
[2020-03-18] MEDS ORDERED: MASKS NR ONE (09:41)
[2020-03-18] MEDS: NICOTINE 21 MG/24 HOURS TOPICAL PATCH TD SCH (10:17)
== END 2020-03-18 09:52 | disposition home or self-care (01) | DRG 772 ==
LOC: YASAS 10:50 → Y3W 10:55
PROVIDERS: ADMIT Allergy & Immunology; ATTEND Allergy & Immunology
PROC: HZ42ZZZ Group Counseling for Substance Abuse Treatment, Cognitive-Behavioral (ICD-10-PCS; principal; 2020-03-05)
DX: F10.20 Alcohol dependence, uncomplicated (principal); F11.20 Opioid dependence, uncomplicated; F17.210 Nicotine dependence, cigarettes, uncomplicated; F10.282 Alcohol dependence with alcohol-induced sleep disorder; E03.9 Hypothyroidism, unspecified; I10 Essential (primary) hypertension; K72.90 Hepatic failure, unspecified without coma; K70.30 Alcoholic cirrhosis of liver without ascites; K21.9 Gastro-esophageal reflux disease without esophagitis; M19.90 Unspecified osteoarthritis, unspecified site; Z91.81 History of falling; Z99.89 Dependence on other enabling machines and devices; Z87.19 Personal history of other diseases of the digestive system

== ENCOUNTER 2020-07-07 21:16 | Inpatient (IN) | payer OTHER ==
[2020-07-07] MEDS ORDERED: METHOCARBAMOL 500 MG TABLET PO PRN (22:01)
[2020-07-07] MEDS ORDERED: MAGNESIUM CITRATE 300 ML BOTTLE PO PRN (22:01)
[2020-07-07] MEDS ORDERED: MAGNESIUM HYDROX 2400MG/30ML ORAL SUSPENSION 30 ML CUP PO PRN (22:01)
[2020-07-07] MEDS ORDERED: ACETAMINOPHEN 325 MG TABLET (FP) PO PRN ×2 (22:01)
[2020-07-07] MEDS ORDERED: MAG HYDROX/AL HYDROX/SIMETH 30 ML UNIT-DOSE CUP PO PRN (22:01)
[2020-07-07] MEDS ORDERED: hydrOXYzine PAMOATE 25 MG CAPSULE (FP) PO PRN (22:01)
[2020-07-07] MEDS ORDERED: MENTHOL/PHENOL 1 EACH UD MM PRN (22:01)
[2020-07-07] MEDS ORDERED: BISMUTH SUBSALICYLATE 524 MG/30 ML UD PO PRN (22:01)
[2020-07-07] MEDS ORDERED: ONDANSETRON *ODT* 4 MG TABLET SL PRN (22:01)
[2020-07-07] MEDS ORDERED: NICOTINE POLACRILEX 2 MG GUM BUC PRN (22:01)
[2020-07-07] MEDS ORDERED: IBUPROFEN 400 MG TABLET (FP) PO PRN (22:01)
[2020-07-07] MEDS ORDERED: METOPROLOL TARTRATE 25 MG TABLET (FP) PO ONE (22:04)
[2020-07-07] MEDS ORDERED: LORazepam 1 MG TABLET PO PRN (22:04)
[2020-07-07] MEDS ORDERED: chlordiazePOXIDE HCL 25 MG CAPSULE PO PRN (22:07)
[2020-07-07] MEDS ORDERED: LORazepam 2 MG TABLET PO SCH (23:00)
[2020-07-07] MEDS ORDERED: chlordiazePOXIDE HCL 25 MG CAPSULE ONE (23:52)
[2020-07-08] MEDS: chlordiazePOXIDE HCL 25 MG CAPSULE PO SCH ×5 (00:06→22:51)
[2020-07-08] MEDS ORDERED: chlordiazePOXIDE HCL 25 MG CAPSULE ONE (07:17)
[2020-07-08] MEDS ORDERED: METHADONE HCL 10 MG TABLET PO SCH (10:15)
[2020-07-08] MEDS ORDERED: METHADONE 40 MG, METHADONE 20 MG PO ONE (10:45)
[2020-07-08] MEDS ORDERED: METHADONE HCL 10 MG TABLET ONE (11:28)
[2020-07-08] MEDS ORDERED: METHADONE HCL 40 MG DISPERSABLE TABLET ONE (11:29)
[2020-07-08 11:33] LABS: POTASSIUM 4.4 mmol/L (3.5-5.1)
[2020-07-08] MEDS: amLODIPine BESYLATE 10 MG TABLET (FP) PO SCH (11:33)
[2020-07-08] MEDS: PRENATAL VITAMINS W/ FOLIC ACID TABLET (FP) PO SCH (11:34)
[2020-07-08 11:36] LABS: HEMATOCRIT 43.5 % (35.4-49); MCH 31.2 pg (25.7-33.7); MCHC 34.5 g/dl (32.0-35.9); MEAN CELL VOLUME 90.4 fl (80-96); MEAN PLT VOLUME 8.9 fl (7.5-11.1); PLATELET COUNT 216 K/MM3 (134-434); RBC 4.81 M/mm3 (4.00-5.60); RDW 13.1 % (11.9-15.9); WHITE BLOOD COUNT 5.1 K/mm3 (4.0-10.0)
[2020-07-08 11:42] LABS: ALBUMIN 3.8 g/dl (3.4-5.0); BLOOD UREA NITROGEN 15.2 mg/dL (7-18)
[2020-07-08 11:44] LABS: BILIRUBIN,TOTAL 1.1 mg/dL (0.2-1)
[2020-07-08 11:45] LABS: CREATININE 0.8 mg/dL (0.55-1.3)
[2020-07-08] MEDS: RIFAXIMIN 550 MG TABLET (UD) PO SCH ×2 (15:24→22:52)
[2020-07-08] MEDS ORDERED: MELATONIN 5 MG TABLETS PO SCH (22:00)
[2020-07-08] MEDS: MELATONIN 5 MG TABLETS PO SCH (22:52)
[2020-07-08] MEDS: THIAMINE HCL 100 MG TABLET (FP) PO SCH (22:52)
[2020-07-09] MEDS ORDERED: METHADONE HCL 40 MG DISPERSABLE TABLET ONE (04:19)
[2020-07-09] MEDS ORDERED: METHADONE HCL 10 MG TABLET ONE (04:19)
[2020-07-09] MEDS ORDERED: LORazepam 1 MG TABLET PO SCH (05:00)
[2020-07-09] MEDS: chlordiazePOXIDE HCL 25 MG CAPSULE PO SCH ×4 (05:31→22:25)
[2020-07-09] MEDS: METHADONE 40 MG, METHADONE 20 MG PO SCH (05:31)
[2020-07-09] MEDS: amLODIPine BESYLATE 10 MG TABLET (FP) PO SCH (10:26)
[2020-07-09] MEDS: PRENATAL VITAMINS W/ FOLIC ACID TABLET (FP) PO SCH (10:26)
[2020-07-09] MEDS: RIFAXIMIN 550 MG TABLET (UD) PO SCH ×2 (10:26→22:25)
[2020-07-09] MEDS: MELATONIN 5 MG TABLETS PO SCH (22:24)
[2020-07-09] MEDS: THIAMINE HCL 100 MG TABLET (FP) PO SCH (22:25)
[2020-07-10] MEDS ORDERED: chlordiazePOXIDE HCL 10 MG CAPSULE PO PRN
[2020-07-10] MEDS ORDERED: LORazepam 0.5 MG TABLET PO PRN
[2020-07-10] MEDS ORDERED: METHADONE HCL 40 MG DISPERSABLE TABLET ONE (04:24)
[2020-07-10] MEDS ORDERED: METHADONE HCL 10 MG TABLET ONE (04:24)
[2020-07-10] MEDS ORDERED: LORazepam 0.5 MG TABLET PO SCH (05:00)
[2020-07-10] MEDS: chlordiazePOXIDE HCL 10 MG CAPSULE PO SCH ×4 (05:32→22:10)
[2020-07-10] MEDS: METHADONE 40 MG, METHADONE 20 MG PO SCH (05:32)
[2020-07-10] MEDS: amLODIPine BESYLATE 10 MG TABLET (FP) PO SCH (10:36)
[2020-07-10] MEDS: RIFAXIMIN 550 MG TABLET (UD) PO SCH ×2 (10:36→22:10)
[2020-07-10] MEDS: PRENATAL VITAMINS W/ FOLIC ACID TABLET (FP) PO SCH (10:36)
[2020-07-10] MEDS: MELATONIN 5 MG TABLETS PO SCH (22:09)
[2020-07-10] MEDS: THIAMINE HCL 100 MG TABLET (FP) PO SCH (22:10)
[2020-07-11] MEDS ORDERED: METHADONE HCL 40 MG DISPERSABLE TABLET ONE (03:08)
[2020-07-11] MEDS ORDERED: METHADONE HCL 10 MG TABLET ONE (03:08)
[2020-07-11] MEDS ORDERED: LORazepam 0.5 MG TABLET PO ONE (05:00)
[2020-07-11] MEDS: chlordiazePOXIDE HCL 10 MG CAPSULE PO SCH ×2 (05:24→17:57)
[2020-07-11] MEDS: METHADONE 40 MG, METHADONE 20 MG PO SCH (05:25)
[2020-07-11] MEDS: RIFAXIMIN 550 MG TABLET (UD) PO SCH ×2 (10:04→22:19)
[2020-07-11] MEDS: amLODIPine BESYLATE 10 MG TABLET (FP) PO SCH (10:04)
[2020-07-11] MEDS: PRENATAL VITAMINS W/ FOLIC ACID TABLET (FP) PO SCH (10:04)
[2020-07-11] MEDS: MELATONIN 5 MG TABLETS PO SCH (22:19)
[2020-07-11] MEDS: THIAMINE HCL 100 MG TABLET (FP) PO SCH (22:19)
[2020-07-12] MEDS ORDERED: METHADONE HCL 10 MG TABLET ONE (03:21)
[2020-07-12] MEDS ORDERED: METHADONE HCL 40 MG DISPERSABLE TABLET ONE (03:21)
[2020-07-12] MEDS ORDERED: chlordiazePOXIDE HCL 10 MG CAPSULE PO ONE (05:00)
[2020-07-12] MEDS: METHADONE 40 MG, METHADONE 20 MG PO SCH (05:18)
[2020-07-12 07:23] VITALS: BP 124/77; PULSE 66; TEMP 96
== END 2020-07-12 09:03 | disposition home or self-care (01) | DRG 773 ==
LOC: YASAS 21:16 → Y6N 07-08 09:32
PROVIDERS: ADMIT Allergy & Immunology; ATTEND Allergy & Immunology
PROC: HZ2ZZZZ Detoxification Services for Substance Abuse Treatment (ICD-10-PCS; principal; 2020-07-08)
DX: F10.230 Alcohol dependence with withdrawal, uncomplicated (principal); F11.20 Opioid dependence, uncomplicated; F10.220 Alcohol dependence with intoxication, uncomplicated; F17.210 Nicotine dependence, cigarettes, uncomplicated; F19.282 Other psychoactive substance dependence with psychoactive substance-induced sleep disorder; F19.24 Other psychoactive substance dependence with psychoactive substance-induced mood disorder; I10 Essential (primary) hypertension; M25.561 Pain in right knee; M25.562 Pain in left knee; R56.9 Unspecified convulsions; Z87.19 Personal history of other diseases of the digestive system; Z99.89 Dependence on other enabling machines and devices
CPT/HCPCS: 36415; 80053; 85027; 86780; C9803; U0003

== ENCOUNTER 2020-09-30 20:33 | Inpatient (IN) | payer OTHER ==
[2020-09-30] MEDS ORDERED: MAG HYDROX/AL HYDROX/SIMETH 30 ML UNIT-DOSE CUP PO PRN (22:37)
[2020-09-30] MEDS ORDERED: MAGNESIUM HYDROX 2400MG/30ML ORAL SUSPENSION 30 ML CUP PO PRN (22:37)
[2020-09-30] MEDS ORDERED: DICYCLOMINE HCL 10 MG CAPSULE PO PRN (22:37)
[2020-09-30] MEDS ORDERED: NICOTINE POLACRILEX 2 MG GUM BUC PRN (22:37)
[2020-09-30] MEDS ORDERED: METHOCARBAMOL 500 MG TABLET PO PRN (22:37)
[2020-09-30] MEDS ORDERED: BISMUTH SUBSALICYLATE 524 MG/30 ML PO PRN (22:37)
[2020-09-30] MEDS ORDERED: guaiFENesin 200 MG/10 ML 10 ML UNIT-DOSE CUPS PO PRN (22:37)
[2020-09-30] MEDS ORDERED: LORazepam 1 MG TABLET PO PRN (22:37)
[2020-09-30] MEDS ORDERED: IBUPROFEN 400 MG TABLET (FP) PO PRN (22:37)
[2020-09-30] MEDS ORDERED: NALOXONE (NARCAN) HCL 4 MG/0.1 ML SPRAY NS PRN (22:37)
[2020-09-30] MEDS ORDERED: MENTHOL/PHENOL 1 EACH UD MM PRN (22:37)
[2020-09-30] MEDS ORDERED: NALOXONE HCL 0.4 MG/ML VIAL IM PRN (22:37)
[2020-09-30] MEDS ORDERED: P-EPHED 60MG/TRIPROLIDI 2.5MG TABLET PO PRN (22:37)
[2020-09-30] MEDS ORDERED: ONDANSETRON *ODT* 4 MG TABLET SL PRN (22:37)
[2020-09-30] MEDS ORDERED: MAGNESIUM CITRATE 300 ML BOTTLE PO PRN (22:37)
[2020-09-30] MEDS ORDERED: ACETAMINOPHEN 325 MG TABLET (FP) PO PRN ×2 (22:37)
[2020-09-30 23:45] VITALS: BMI 29.2
[2020-10-01] MEDS: LORazepam 2 MG TABLET PO SCH ×5 (04:53→23:37)
[2020-10-01] MEDS ORDERED: cloNIDine HCL 0.1 MG TABLET PO ONE (07:15)
[2020-10-01 10:21] LABS: CALCIUM 8.6 mg/dL (8.5-10.1)
[2020-10-01 10:22] LABS: BLOOD UREA NITROGEN 12.7 mg/dL (7-18)
[2020-10-01 10:25] LABS: CREATININE 0.9 mg/dL (0.55-1.3)
[2020-10-01 10:28] LABS: BILIRUBIN,TOTAL 0.6 mg/dL (0.2-1)
[2020-10-01 10:31] LABS: HEMOGLOBIN 14.6 GM/dL (11.7-16.9); MCH 32.1 pg (25.7-33.7); MCHC 34.7 g/dl (32.0-35.9); MEAN CELL VOLUME 92.3 fl (80-96); PLATELET COUNT 204 K/MM3 (134-434); RBC 4.55 M/mm3 (4.00-5.60); RDW 13.5 % (11.9-15.9); WHITE BLOOD COUNT 5.7 K/mm3 (4.0-10.0)
[2020-10-01] MEDS: METHADONE HCL 10 MG TABLET PO SCH (10:38)
[2020-10-01] MEDS: PRENATAL VITAMINS W/ FOLIC ACID TABLET (FP) PO SCH (10:39)
[2020-10-01] MEDS: NICOTINE 14 MG/24 HOURS TOPICAL PATCH TD SCH (10:39)
[2020-10-01] MEDS: amLODIPine BESYLATE 10 MG TABLET (FP) PO SCH (10:39)
[2020-10-01] MEDS: PANTOPRAZOLE 20 MG TABLET PO SCH (10:39)
[2020-10-01] MEDS: MELATONIN 5 MG TABLETS PO SCH (23:37)
[2020-10-01] MEDS: THIAMINE HCL 100 MG TABLET (FP) PO SCH (23:37)
[2020-10-02] MEDS: METHADONE HCL 10 MG TABLET PO SCH (06:25)
[2020-10-02] MEDS: LORazepam 1 MG TABLET PO SCH ×4 (06:25→22:36)
[2020-10-02] MEDS: PRENATAL VITAMINS W/ FOLIC ACID TABLET (FP) PO SCH (10:46)
[2020-10-02] MEDS: amLODIPine BESYLATE 10 MG TABLET (FP) PO SCH (10:46)
[2020-10-02] MEDS: PANTOPRAZOLE 20 MG TABLET PO SCH (10:46)
[2020-10-02] MEDS: NICOTINE 14 MG/24 HOURS TOPICAL PATCH TD SCH (10:46)
[2020-10-02] MEDS: THIAMINE HCL 100 MG TABLET (FP) PO SCH (22:36)
[2020-10-02] MEDS: MELATONIN 5 MG TABLETS PO SCH (22:36)
[2020-10-03] MEDS ORDERED: LORazepam 0.5 MG TABLET PO PRN
[2020-10-03] MEDS: METHADONE HCL 10 MG TABLET PO SCH (06:42)
[2020-10-03] MEDS: LORazepam 0.5 MG TABLET PO SCH ×4 (06:43→22:24)
[2020-10-03] MEDS: amLODIPine BESYLATE 10 MG TABLET (FP) PO SCH (09:43)
[2020-10-03] MEDS: NICOTINE 14 MG/24 HOURS TOPICAL PATCH TD SCH (09:43)
[2020-10-03] MEDS: PANTOPRAZOLE 20 MG TABLET PO SCH (09:43)
[2020-10-03] MEDS: PRENATAL VITAMINS W/ FOLIC ACID TABLET (FP) PO SCH (09:43)
[2020-10-03] MEDS ORDERED: cloNIDine HCL 0.1 MG TABLET PO PRN (10:28)
[2020-10-03] MEDS: MELATONIN 5 MG TABLETS PO SCH (22:25)
[2020-10-03] MEDS: THIAMINE HCL 100 MG TABLET (FP) PO SCH (22:25)
[2020-10-04] MEDS ORDERED: LORazepam 0.5 MG TABLET PO ONE (05:00)
[2020-10-04] MEDS: METHADONE HCL 10 MG TABLET PO SCH (05:48)
[2020-10-04] MEDS: PRENATAL VITAMINS W/ FOLIC ACID TABLET (FP) PO SCH (09:02)
[2020-10-04] MEDS: NICOTINE 14 MG/24 HOURS TOPICAL PATCH TD SCH (09:02)
[2020-10-04] MEDS: amLODIPine BESYLATE 10 MG TABLET (FP) PO SCH (09:02)
[2020-10-04] MEDS: PANTOPRAZOLE 20 MG TABLET PO SCH (09:02)
[2020-10-04 09:28] VITALS: BP 164/85; PULSE 94; TEMP 96.2
[2020-10-04 14:07] LABS: SARS-CoV-2 NAA Not Detected (Not Detected)
== END 2020-10-04 09:21 | disposition home or self-care (01) | DRG 773 ==
LOC: YASAS 20:33 → Y6N 10-01 01:07
PROVIDERS: ADMIT Allergy & Immunology; ATTEND Allergy & Immunology
PROC: HZ2ZZZZ Detoxification Services for Substance Abuse Treatment (ICD-10-PCS; principal; 2020-10-01)
DX: F10.230 Alcohol dependence with withdrawal, uncomplicated (principal); F11.20 Opioid dependence, uncomplicated; F17.210 Nicotine dependence, cigarettes, uncomplicated; F19.24 Other psychoactive substance dependence with psychoactive substance-induced mood disorder; I10 Essential (primary) hypertension; G47.00 Insomnia, unspecified; K70.10 Alcoholic hepatitis without ascites; R76.11 Nonspecific reaction to tuberculin skin test without active tuberculosis; K21.9 Gastro-esophageal reflux disease without esophagitis; Z86.69 Personal history of other diseases of the nervous system and sense organs; Z99.89 Dependence on other enabling machines and devices; Z91.81 History of falling
CPT/HCPCS: 36415; 80053; 85027; 86780; C9803; J0735; U0003; U0005